=== PATIENT | male | born 1970 | race Caucasian/White ===

== ENCOUNTER 2016-03-20 15:12 | Observation (INO) | payer OTHER ==
[2016-03-20] MEDS ORDERED: ONDANSETRON 4 MG/2 ML VIAL IVP STA (16:56)
[2016-03-20] MEDS ORDERED: ACETAMINOPHEN IV (For NPO) 1,000 MG in SALINE 100 100ML.BAG IVPB STA (16:56)
[2016-03-20] MEDS ORDERED: SODIUM CHLORIDE 0.9% 1,000 ML IV STA ×2 (16:56)
--- NOTE | 2016-03-20 17:03 | ED ---
General Adult HPI - General Source: patient, RN notes reviewed Mode of arrival: ambulatory Limitations: no limitations <Dax Mirza - Last Filed: 03/20/16 20:33> <Alexy Seymour - Last Filed: 03/20/16 21:01> - General Chief complaint: Abdominal Pain Stated complaint: Cold symptoms Time Seen by Provider: 03/20/16 16:19 - History of Present Illness Initial comments: Patient is a 45-year-old male who presents emergency room today with a chief complaint of symptoms of nausea. Patient does admit that he has had some pain that seems to radiate up into the chest and through to his back. He describes it as a nausea type healing. Unable to describe the feeling of pain. Patient states the symptoms started at 5 AM this morning. Patient denies any other complaints or symptoms time. Patient states unaware that he had a fever at home. Patient denies any recent fever, chills, shortness of breath, numbness or tingling, dysuria or hematuria, constipation or diarrhea, headaches or visual changes, or any other complaints. (Dax Mirza) - Related Data Home Medications Medication Instructions Recorded Confirmed Atenolol [Tenormin] 50 mg PO BID 07/21/15 03/20/16 Omeprazole [PriLOSEC] 20 mg PO BID 07/21/15 03/20/16 Albuterol Inhaler [Ventolin Hfa 2 puff INHALATION RT-Q4H PRN 03/20/16 03/20/16 Inhaler] Baclofen [Lioresal] 10 mg PO BID PRN 03/20/16 03/20/16 HYDROcodone/APAP 5-325MG [[place] 1 tab PO BID 03/20/16 03/20/16 5-325] Allergies Allergy/AdvReac Type Severity Reaction Status Date / Time No Known Allergies Allergy Verified 03/20/16 16:52 Review of Systems ROS Other: All systems not noted in ROS Statement are negative. <Dax Mirza - Last Filed: 03/20/16 20:33> ROS Other: All systems not noted in ROS Statement are negative. <Alexy Seymour - Last Filed: 03/20/16 21:01> ROS Statement: Those systems with pertinent positive or pertinent negative responses have been documented in the HPI. Past Medical History Past Medical History: Cancer, COPD, GI Bleed, Hypertension Additional Past Medical History / Comment(s): RENAL CELL CA, DUODENAL ULCER, HIATAL HERNIA, BORDERLINE PERSONALITY DISORDER, OCD, chronic back pain History of Any Multi-Drug Resistant Organisms: None Reported Past Surgical History: Hernia Repair Additional Past Surgical History / Comment(s): duodenal ulcer surgery, left kidney removal Past Anesthesia/Blood Transfusion Reactions: No Reported Reaction Past Psychological History: Anxiety Smoking Status: Current every day smoker Past Alcohol Use History: None Reported Past Drug Use History: Marijuana <Dax Mirza - Last Filed: 03/20/16 20:33> General Exam Limitations: no limitations <Dax Mirza - Last Filed: 03/20/16 20:33> <Alexy Seymour - Last Filed: 03/20/16 21:01> - General Exam Comments Initial Comments: General: The patient is awake and alert, in no distress, and does not appear acutely ill. Eye: Pupils are equal, round and reactive to light, extra-ocular movements are intact. No nystagmus. There is normal conjunctiva bilaterally. No signs of icterus. Ears, nose, mouth and throat: There are moist mucous membranes and no oral lesions. Neck: The neck is supple, there is no tenderness or JVD. Cardiovascular: There is a regular rate and rhythm. No murmur, rub or gallop is appreciated. Respiratory: Lungs are clear to auscultation, respirations are non-labored, breath sounds are equal. No wheezes, stridor, rales, or rhonchi. Gastrointestinal: Patient has normal appearance and. No pulsatile mass. Abdomen soft on palpation. Bowel sounds normal. Patient has mild tenderness epigastric. No rebound tenderness. No guarding. Tenderness. Musculoskeletal: Normal ROM, no tenderness. Strength 5/5. Sensation intact. Pulses equal bilaterally 2+. Neurological: A&O x 3. CN II-XII intact, There are no obvious motor or sensory deficits. Coordination appears grossly intact. Speech is normal. Skin: Skin is warm and dry and no rashes or lesions are noted. Psychiatric: Cooperative, appropriate mood & affect, normal judgment. Normal appearance (Dax Mirza) Medical Decision Making - Lab Data Result diagrams: 03/20/16 17:12 03/20/16 17:12 <Dax Mirza - Last Filed: 03/20/16 20:33> - Lab Data Result diagrams: 03/20/16 17:12 03/20/16 17:12 <Alexy Seymour - Last Filed: 03/20/16 21:01> - Medical Decision Making Patient examined here the emergency room still expresses discomfort in the epigastric. Patient's ultrasound reviewed and does show fluid around the gallbladder. Does have an elevated white count of 13.8. Does have a low-grade fever 100.5F here in emergency room. Case discussed and seen by the physician Dr. Seymour. Patient will be admitted overnight to hospitalist with consult from surgery. (Dax Mirza) I examined the patient and he has discomfort to the right upper quadrant. Ultrasound shows hydrops of the gallbladder. Elevated white count. On again off again pain for several months. The patient has vomiting and diaphoresis earlier in the day. Cardiac enzymes within normal limits EKG normal. I discussed the case with on-call hospitalist Dr. Maxwell patient be admitted to his service with consultation from [facility]. Dr. Seymour (Alexy Seymour) - Lab Data Lab Results 03/20/16 03/20/16 03/20/16 Range/Units 17:12 17:12 17:12 WBC 13.8 H (3.8-10.6) k/uL RBC 4.95 (4.30-5.90) m/uL Hgb 14.2 (13.0-17.5) gm/dL Hct 44.1 (39.0-53.0) % MCV 89.0 (80.0-100.0) fL MCH 28.7 (25.0-35.0) pg MCHC 32.2 (31.0-37.0) g/dL RDW 13.6 (11.5-15.5) % Plt Count 278 (150-450) k/uL Neutrophils % 92 % Lymphocytes % 3 % Monocytes % 3 % Eosinophils % 0 % Basophils % 0 % Neutrophils # 12.7 H (1.3-7.7) k/uL Lymphocytes # 0.4 L (1.0-4.8) k/uL Monocytes # 0.5 (0-1.0) k/uL Eosinophils # 0.1 (0-0.7) k/uL Basophils # 0.0 (0-0.2) k/uL PT (9.0-12.0) sec INR (<1.1) APTT (22.0-30.0) sec Sodium 137 (137-145) mmol/L Potassium 4.4 (3.5-5.1) mmol/L Chloride 103 (98-107) mmol/L Carbon Dioxide 22 (22-30) mmol/L Anion Gap 12 mmol/L BUN 21 H (9-20) mg/dL Creatinine 1.10 (0.66-1.25) mg/dL Est GFR (MDRD) Af Amer >60 (>60 ml/min/1.73 sqM) Est GFR (MDRD) Non-Af >60 (>60 ml/min/1.73 sqM) Glucose 101 H (74-99) mg/dL Calcium 8.9 (8.4-10.2) mg/dL Total Bilirubin 0.7 (0.2-1.3) mg/dL AST 19 (17-59) U/L ALT 32 (21-72) U/L Alkaline Phosphatase 54 (38-126) U/L Total Creatine Kinase 82 (55-170) U/L CK-MB (CK-2) 0.3 (0.0-2.4) ng/mL CK-MB (CK-2) Rel Index 0.4 Troponin I 0.024 (0.000-0.034) ng/mL Total Protein 6.5 (6.3-8.2) g/dL Albumin 3.9 (3.5-5.0) g/dL Amylase 61 (30-110) U/L Lipase 330 H (23-300) U/L Urine Color Urine Appearance (Clear) Urine pH (5.0-8.0) Ur Specific [place] (1.001-1.035) Urine Protein (Negative) Urine Glucose (UA) (Negative) Urine Ketones (Negative) Urine Blood (Negative) Urine Nitrate (Negative) Urine Bilirubin (Negative) Urine Urobilinogen (<2.0) mg/dL Ur Leukocyte Esterase (Negative) Urine RBC (0-5) /hpf Urine WBC (0-5) /hpf Ur Squamous Epith Cells (0-4) /hpf Urine Mucus (None) /hpf 03/20/16 03/20/16 Range/Units 17:12 17:28 WBC (3.8-10.6) k/uL RBC (4.30-5.90) m/uL Hgb (13.0-17.5) gm/dL Hct (39.0-53.0) % MCV (80.0-100.0) fL MCH (25.0-35.0) pg MCHC (31.0-37.0) g/dL RDW (11.5-15.5) % Plt Count (150-450) k/uL Neutrophils % % Lymphocytes % % Monocytes % % Eosinophils % % Basophils % % Neutrophils # (1.3-7.7) k/uL Lymphocytes # (1.0-4.8) k/uL Monocytes # (0-1.0) k/uL Eosinophils # (0-0.7) k/uL Basophils # (0-0.2) k/uL PT 10.6 (9.0-12.0) sec INR 1.0 (<1.1) APTT 25.6 (22.0-30.0) sec Sodium (137-145) mmol/L Potassium (3.5-5.1) mmol/L Chloride (98-107) mmol/L Carbon Dioxide (22-30) mmol/L Anion Gap mmol/L BUN (9-20) mg/dL Creatinine (0.66-1.25) mg/dL Est GFR (MDRD) Af Amer (>60 ml/min/1.73 sqM) Est GFR (MDRD) Non-Af (>60 ml/min/1.73 sqM) Glucose (74-99) mg/dL Calcium (8.4-10.2) mg/dL Total Bilirubin (0.2-1.3) mg/dL AST (17-59) U/L ALT (21-72) U/L Alkaline Phosphatase (38-126) U/L Total Creatine Kinase (55-170) U/L CK-MB (CK-2) (0.0-2.4) ng/mL CK-MB (CK-2) Rel Index Troponin I (0.000-0.034) ng/mL Total Protein (6.3-8.2) g/dL Albumin (3.5-5.0) g/dL Amylase (30-110) U/L Lipase (23-300) U/L Urine Color Yellow Urine Appearance Clear (Clear) Urine pH 5.5 (5.0-8.0) Ur Specific [place] 1.025 (1.001-1.035) Urine Protein 2+ H (Negative) Urine Glucose (UA) Negative (Negative) Urine Ketones Negative (Negative) Urine Blood Small H (Negative) Urine Nitrate Negative (Negative) Urine Bilirubin Negative (Negative) Urine Urobilinogen <2.0 (<2.0) mg/dL Ur Leukocyte Esterase Negative (Negative) Urine RBC 4 (0-5) /hpf Urine WBC 2 (0-5) /hpf Ur Squamous Epith Cells <1 (0-4) /hpf Urine Mucus Rare H (None) /hpf Disposition Time of Disposition: 20:35 <Dax Mirza - Last Filed: 03/20/16 20:33> <Alexy Seymour - Last Filed: 03/20/16 21:01> Clinical Impression: Abdominal pain, Hydrops of gallbladder Disposition: ADMITTED IP TO THIS HOSP Condition: Stable Instructions: Abdominal Pain (ED) Referrals: Dorothea Choi MD [Primary Care Provider] - 1-2 days
[2016-03-20 17:27] LABS: Basophils % (A) 0 %; CH 29.3; CHCM 33.1; Eosinophils # (A) 0.1 k/uL (0-0.7); Eosinophils % (A) 0 %; HCT 44.1 % (39.0-53.0); HGB 14.2 gm/dL (13.0-17.5); Luc % (Auto) 1; Lymphocytes # (A) 0.4 k/uL (1.0-4.8); Lymphocytes % (A) 3 %; MCH 28.7 pg (25.0-35.0); MCHC 32.2 g/dL (31.0-37.0); Mean Platelet Volume 7.2; Monocytes # (A) 0.5 k/uL (0-1.0); Monocytes % (A) 3 %; Neutrophils # (A) 12.7 k/uL (1.3-7.7); Neutrophils % (A) 92 %; RBC 4.95 m/uL (4.30-5.90); RDW 13.6 % (11.5-15.5); WBC 13.8 k/uL (3.8-10.6); WBC (Perox) 14.02
[2016-03-20 17:34] LABS: Partial Thromboplastin Time 25.6 sec (22.0-30.0); Prothrombin Time 10.6 sec (9.0-12.0)
[2016-03-20 17:36] LABS: ALT 32 U/L (21-72); AST 19 U/L (17-59); Alkaline Phosphatase 54 U/L (38-126); Amylase 61 U/L (30-110); Anion Gap 12 mmol/L; Blood Urea Nitrogen 21 mg/dL (9-20); Calcium 8.9 mg/dL (8.4-10.2); Carbon Dioxide 22 mmol/L (22-30); Chloride 103 mmol/L (98-107); Glucose 101 mg/dL (74-99); Non-African American GFR(MDRD) >60 (>60 ml/min/1.73 sqM); Potassium 4.4 mmol/L (3.5-5.1); Sodium 137 mmol/L (137-145); Total Bilirubin 0.7 mg/dL (0.2-1.3); Total Protein 6.5 g/dL (6.3-8.2)
[2016-03-20 17:45] LABS: Appearance,Urine Clear (Clear); Bilirubin,Urine Negative (Negative); Glucose,Urine (UA) Negative (Negative); Ketones,Urine Negative (Negative); Leukocyte Esterase,Urine Negative (Negative); Mucus,Urine Rare /hpf; Nitrite,Urine Negative (Negative); PH, Urine 5.5 (5.0-8.0); Particle Count 2154; Protein,Urine 2+ (Negative); RBC,Urine 4 /hpf (0-5); Specific Gravity,Urine 1.025 (1.001-1.035); Squamous Epithelial Cell,Urine <1 /hpf (0-4); UA Billing (MACRO vs. MICRO) MICRO; Urobilinogen,Urine <2.0 mg/dL (<2.0); WBC,Urine 2 /hpf (0-5)
[2016-03-20 17:52] LABS: Creatine Kinase MB 0.3 ng/mL (0.0-2.4); Troponin I 0.024 ng/mL (0.000-0.034)
--- NOTE | 2016-03-20 18:12 | XR ---
Abdomen HISTORY: Pain Frontal view of the abdomen submitted on 2 images and correlated to prior exam 13 September 2014 There is a spinal curvature. Surgical clips are present in the upper abdomen. Lung bases are clear. N o pneumoperitoneum or bowel obstruction. IMPRESSION: No acute abnormality
--- NOTE | 2016-03-20 18:13 | XR ---
EXAMINATION TYPE: XR chest 2V DATE OF EXAM: 03/20/2016 5:45 PM COMPARISON: Prior chest x-ray third of September 2015 HISTORY: Chest pain TECHNIQUE: Frontal and lateral views of the chest are obtained. FINDINGS: There is no focal air space opacity, pleural effusion, or pneumothorax seen. The cardiac silhouette size is within normal limits. The osseous structures are intact. IMPRESSION: No acute cardiopulmonary process.
--- NOTE | 2016-03-20 20:00 | US ---
EXAMINATION TYPE: US abdomen limited DATE OF EXAM: 03/20/2016 7:29 PM COMPARISON: Previous abdomen ultrasound and CT abdomen pelvis second of July 2015 CLINICAL HISTORY: RUQ pain radiating into back. History of RCC, left kidney surgically absent. Diffic ult/limited study due to large body habitus and overlying bowel gas EXAM MEASUREMENTS: Liver Length: 16.0 cm Gallbladder Wall: 0.2 cm CBD: 0.4 cm Right Kidney: 12.0 x 5.5 x 5.2 cm Pancreas: Obscured by bowel gas Liver: Limited visualization due to bowel gas, visualized portions show no mass Gallbladder: Gallbladder may be somewhat hydropic Evidence for sonographic Styles's sign: No CBD: wnl as visualized, distal portion obscured by bowel gas Right Kidney: No hydronephrosis or masses seen There is no ascites. IMPRESSION: Exam is limited. Possible hydropic gallbladder, consider HIDA scan, surgical consult
[2016-03-20] MEDS ORDERED: ACETAMINOPHEN TAB 325 MG TAB PO PRN (20:35)
[2016-03-20] MEDS ORDERED: ONDANSETRON 4 MG/2 ML VIAL IVP PRN (20:35)
[2016-03-20] MEDS ORDERED: NALOXONE 0.4 MG/ML 1 ML VIAL IV PRN (20:35)
[2016-03-20] MEDS ORDERED: SODIUM CHLORIDE 0.9% 1,000 ML IV ONE (20:35)
[2016-03-20] MEDS ORDERED: ALBUTEROL NEBULIZED 2.5 MG/3 ML INHALATION PRN (23:04)
[2016-03-20] MEDS ORDERED: ZOLPIDEM 5 MG TAB PO PRN (23:04)
[2016-03-21] MEDS: PANTOPRAZOLE 40 MG TABLET PO SCH ×2 (00:01→09:09)
[2016-03-21] MEDS: HEPARIN SODIUM,PORCINE 5,000 UNIT/ML 1 ML VIAL SQ SCH ×3 (00:02→17:06)
[2016-03-21] MEDS: HYDROmorphone 1 MG/ML 1 ML SYRINGE IV PRN ×4 (00:03→14:31)
[2016-03-21 07:46] VITALS: RESP 18
[2016-03-21 08:52] LABS: Basophils % (A) 0 %; CH 28.7; CHCM 31.8; Eosinophils % (A) 0 %; HCT 39.6 % (39.0-53.0); HDW 2.32; HGB 12.7 gm/dL (13.0-17.5); Luc # (Auto) 0.21; Luc % (Auto) 4; Lymphocytes % (A) 16 %; MCHC 32.1 g/dL (31.0-37.0); MCV 90.5 fL (80.0-100.0); Mean Platelet Volume 6.8; Monocytes # (A) 0.5 k/uL (0-1.0); Monocytes % (A) 8 %; Neutrophils # (A) 4.3 k/uL (1.3-7.7); Neutrophils % (A) 72 %; RBC 4.38 m/uL (4.30-5.90); RDW 13.6 % (11.5-15.5); WBC (Perox) 6.37
[2016-03-21] MEDS ORDERED: ATENOLOL 50 MG TAB PO SCH ×2 (09:00→23:05)
[2016-03-21 09:08] LABS: ALT 30 U/L (21-72); AST 17 U/L (17-59); Alkaline Phosphatase 52 U/L (38-126); Amylase <30 U/L (30-110); Anion Gap 9 mmol/L; Blood Urea Nitrogen 14 mg/dL (9-20); Calcium 8.5 mg/dL (8.4-10.2); Carbon Dioxide 27 mmol/L (22-30); Chloride 103 mmol/L (98-107); Glucose 91 mg/dL (74-99); Non-African American GFR(MDRD) >60 (>60 ml/min/1.73 sqM); Potassium 4.4 mmol/L (3.5-5.1); Sodium 139 mmol/L (137-145); Total Bilirubin 0.7 mg/dL (0.2-1.3)
--- NOTE | 2016-03-21 13:43 | P.CONS ---
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 Patient stated the chest pain left anterior wall radiated up into the back to the neck. Stated that he had a sensation of nausea but no emesis. Patient stated that he went to bed woke up at 5 in the morning with the above symptoms. Patient states that he did not take his temperature but did not feeling any fever or chills. Patient stated he did not note a change in bowel habits. Patient states that over the last several months "after I think about it I been having intermittent episodes of chest discomfort left anterior chest wall goes up into the neck and the back. Patient states a couple weeks ago he was eating a peanut butter sandwich developed chest discomfort patient states he gets his healthcare out of [facility]. And he sees a neurologist Dr. matias for chronic lower back pain which she is prescribed [place]. States that he did see the pain doctor March 09 2016 Patient states he has not been experiencing any significant abdominal pain when questioning in the emergency room and ultrasound of the abdomen was done it showed no ascites. It did show no evidence of hydronephrosis or mass on the left kidney the gallbladder was noted to be somewhat hydropic. The lipase on admission was 330 repeat lipase this morning is 40. Amylase is less than 30 on admission 61. Electrolytes are reviewed and within normal limits. Mild elevated troponin of 0.024. The total bilirubin is not elevated 0.7 the AST and ALT are not elevated the AST is 17 ALT 30 alk phos 52 on admission the white count was 13.8 it's now down to 6. HIDA scan has been ordered is currently pending. Currently the patient is denying any right upper quadrant pain Patient is a history of being diagnosed in 2003 of left renal cancer resulting in a left nephrectomy. He states that admission he did have an EGD which did sit show a duodenal ulcer in which the patient stated he developed bleeding afterwards and ended up having surgery in the duodenal ulcer. He states the EGD was done by Dr. Alvarez but is not certain who the surgical service was according to the patient he has not been experiencing any epigastric discomfort such as burning or heartburn. Patient also states he has not noted any change in bowel habits. He Patient does give a surgical history of repair of the duodenal ulcer and a left nephrectomy and hernia repair. Patient every day smoker greater than a 20 year history Review of Systems Essentially unremarkable except as mentioned in the present illness Past Medical History Past Medical History: Cancer, COPD, GI Bleed, Hypertension Additional Past Medical History / Comment(s): RENAL CELL CA, DUODENAL ULCER, HIATAL HERNIA, BORDERLINE PERSONALITY DISORDER, OCD, chronic back pain, chronic bronchitis History of Any Multi-Drug Resistant Organisms: None Reported Past Surgical History: Hernia Repair Additional Past Surgical History / Comment(s): duodenal ulcer surgery, left kidney removal Past Anesthesia/Blood Transfusion Reactions: No Reported Reaction Past Psychological History: Anxiety Additional Psychological History / Comment(s): OCD, borderline personality disorder Smoking Status: Current every day smoker Past Alcohol Use History: None Reported Past Drug Use History: Marijuana Medications and Allergies Home Medications Medication Instructions Recorded Confirmed Type Atenolol [Tenormin] 50 mg PO BID 07/21/15 03/20/16 History Omeprazole [PriLOSEC] 20 mg PO BID 07/21/15 03/20/16 History Albuterol Inhaler [Ventolin Hfa 2 puff INHALATION RT-Q4H PRN 03/20/16 03/20/16 History Inhaler] Baclofen [Lioresal] 10 mg PO BID PRN 03/20/16 03/20/16 History HYDROcodone/APAP 5-325MG [[place] 1 tab PO BID 03/20/16 03/20/16 History 5-325] Allergies Allergy/AdvReac Type Severity Reaction Status Date / Time No Known Allergies Allergy Verified 03/20/16 16:52 Physical Exam Vitals: Vital Signs Temp Pulse Resp BP BP Pulse Ox 03/21/16 07:00 98.2 F 75 18 97/58 97 03/20/16 23:00 98.9 F 79 20 128/65 94 L 03/20/16 21:49 98.2 F 75 120/65 96 Intake and Output 03/20/16 03/21/16 03/21/16 22:59 06:59 14:59 Intake Total 200 0 Balance 200 0 Intake: Oral 200 0 Other: # Voids 2 Weight 126.87 kg GENERAL APPEARANCE: 45-year-old male patient is alert, oriented, in no acute distress. VITAL SIGNS: Reviewed HEENT: Head is normocephalic and atraumatic. Pupils are equal and reactive. The nares are patent. Oropharynx is clear without lesions. NECK: Supple without lymphadenopathy. Traches midline. HEART: S1, S2. Regular rate and rhythm. No murmur noted LUNGS: No crackles or wheezes are heard. Essentially clear on room air ABDOMEN: Soft, nontender, nondistended with good bowel sounds. No peritoneal signs. No palpable organomegaly or masses. Not able to elicit any facial grimacing with palpitation to the abdominal wall. EXTREMITIES: Normal skin color and turgor. No cyanosis, rash, ulceration, clubbing or edema. Radial pedal pulses are 2/4 bilaterally. NEUROLOGICAL: No focal deficits. Strength and sensation are grossly intact. Results CBC & Chem 7: 03/21/16 08:12 03/21/16 08:12 Labs: Abnormal Lab Results - Last 24 Hours (Table) 03/21/16 03/21/16 Range/Units 08:12 08:12 Hgb 12.7 L (13.0-17.5) gm/dL Total Protein 6.0 L (6.3-8.2) g/dL Amylase <30 L (30-110) U/L Assessment and Plan Plan: Impression Present on admission chief complaint of nausea with chest pain left side radiating up into the back up into the neck Present on admission leukocytosis suspect reactive Chronic nicotine dependency greater than a 20 year history 1 pack a day Chronic pain narcotic dependency History of a duodenal ulcer with a duodenal repair done in 2003 History of left renal cancer 2003 Anxiety disorder nonspecified Mildly elevated troponin Obesity BMI 40 Plan Check troponin 3 Consult cardiology Follow up on the HIDA scan currently pending Pain control DVT and GI prophylaxis Repeat labs in the morning Further recommendations from surgical service after reviewing the HIDA scan Acute for allowing us to participate in the surgical management of your patient will follow clinical course The above dictated assessment and findings were discussed with . Impression and the plan of care have been dictated as directed. Jessica Tirado nurse practitioner acting as a scribe for dr mao
--- NOTE | 2016-03-21 13:54 | NM ---
EXAMINATION TYPE: NM hepatobiliary w CCK DATE OF EXAM: 03/21/2016 1:45 PM COMPARISON: NONE HISTORY: Abdominal pain TECHNIQUE: After the intravenous administration of 5.28 mCi Tc 99m Mebrofenin hepatobiliary scintigra phy is performed. Immediate images post injection. FINDINGS: There is satisfactory initial accumulation of tracer by the liver. The gallbladder is visualized wit hin 10 minutes. The small bowel activity is noted within 50 to minutes. At one hour CCK was adminis tered, patient was injected with 2.55 mcg of Kinevac, and gallbladder ejection fraction is calculated at 9 %, in the normal range. Therefore there is no scintigraphic evidence of cystic or common bile duct obstruction to suggest acute cholecystitis or gallbladder dyskinesia. IMPRESSION: Biliary dyskinesia.
[2016-03-21 16:24] VITALS: BP 128/76; PULSE 71; TEMP 96.7
--- NOTE | 2016-03-21 17:36 | HP ---
The patient is a 45-year-old gentleman who came in with epigastric burning sensation radiating to the retrosternal area and through the esophagus. Patient has typical gastroesophageal reflux symptoms along with nausea, did not vomit and patient had peptic ulcer disease in the past. Patient is already on Prilosec at home twice a day. Patient denied any fever or chills, lightheadedness. Patient underwent ultrasound of the abdomen since his pain radiates to the back, which is a burning sensation about 5/10 in severity, not associated with diaphoresis, not associated with food, nonexertional, nonpleuritic in nature. Patient underwent ultrasound of the abdomen and HIDA scan, both of which are essentially not consistent with cholecystitis except for mild biliary dyskinesia. Patient in the past has extensive history of peptic ulcer disease. Patient had patient had similar symptoms in the past for which patient underwent a stress test in 2013, which was essentially within normal limits and patient's EKG was within normal limits and patient's troponins are not elevated. REVIEW OF SYSTEMS: CONSTITUTIONAL: No fever, no malaise, no fatigue. HEENT: No recent visual problems or hearing problems. Denied any sore throat. CARDIOVASCULAR: No chest pain, orthopnea, PND, no palpitations, no syncope. PULMONARY: No shortness of breath, no cough, no hemoptysis. GASTROINTESTINAL: As described in HPI. NEUROLOGICAL: No headaches, no weakness, no numbness. HEMATOLOGICAL: Denies any bleeding or petechiae. GENITOURINARY: Denies any burning micturition, frequency, or urgency. MUSCULOSKELETAL/RHEUMATOLOGICAL: Denies any joint pain, swelling, or any muscle pain. ENDOCRINE: Denies any polyuria or polydipsia. The rest of the 14 point review of systems is negative. PAST MEDICAL HISTORY: Significant for renal cell cancer, COPD, GI bleed, peptic ulcer disease, hypertension, hernia repair in the past, anxiety disorder, obsessive-compulsive disorder. SOCIAL HISTORY: The patient does smoke, nicotine cessation counseling was provided, about a pack per day. Denied any alcohol abuse. Occasional use of marijuana. Home medications include: 1. Atenolol. 2. Omeprazole, 3. Albuterol. 4. Baclofen. 5. Hydrocodone-acetaminophen. ALLERGIES: No known drug allergies. PHYSICAL EXAMINATION: VITAL SIGNS: Temperature 98.2, pulse of 75, respiratory rate of 18, blood pressure is 97/58, saturating at 97% on room air. GENERAL: The patient is alert and oriented x3, not in any acute distress. Well developed, well nourished. HEENT: Pupils are round and equally reacting to light. EOMI. No scleral icterus. No conjunctival pallor. Normocephalic, atraumatic. No pharyngeal erythema. No thyromegaly. CARDIOVASCULAR: S1 and S2 present. No murmurs, rubs, or gallops. PULMONARY: Chest is clear to auscultation, no wheezing or crackles. ABDOMEN: Soft, nontender, nondistended, normoactive bowel sounds. No palpable organomegaly. Patient's epigastric abdominal pain completely resolved after Protonix. MUSCULOSKELETAL: No joint swelling or deformity. EXTREMITIES: No cyanosis, clubbing, or pedal edema. NEUROLOGICAL: Gross neurological examination did not reveal any focal deficits. SKIN: No rashes. ASSESSMENT AND PLAN: 1. Epigastric abdominal burning sensation secondary to gastroesophageal reflux disease and peptic ulcer disease. Patient will be switched to Protonix. I do not believe patient has any myocardial infarction and patient's symptoms are not consistent with cardiac chest pain. Patient's symptoms improved with Protonix and patient does not have any cholecystitis, either. Patient will be discharged today. I will change his Prilosec to Protonix 20 b.i.d. along with Maalox. 2. Hypertension. Actually, blood pressure is 90 systolic. Because of that reason, I will discontinue atenolol, give him metoprolol to prevent any reflex tachycardia. 3. Left renal cancer in remission. 4. Obesity. 5. Leukocytosis which is reactive, which resolved at this point of time. 6. Patient will be discharged today. 7. Patient will follow with Dr. Dorothea Choi in 3 to 7 days; Dr. Tiffany Pulido in 1 week. 8. Activity as tolerated. 9. Cardiac diet and extensive counseling regarding diet regarding gastroesophageal reflux disease, peptic ulcer disease. Avoid caffeine, avoid chocolate, avoid alcohol and nicotine and elevate the head around 30 degrees.
--- NOTE | 2016-05-11 12:00 | PCN ---
ADDENDUM TO PROCEDURE NOTE: General anesthesia was utilized instead of IV conscious sedation.
== END 2016-03-21 17:10 | disposition home or self-care (01) ==
LOC: EC 15:12 → 4MS4W 20:35
PROVIDERS: ADMIT Hospitalist; ATTEND Hospitalist
DX: K21.9 Gastro-esophageal reflux disease without esophagitis (principal); K27.9 Peptic ulcer, site unspecified, unspecified as acute or chronic, without hemorrhage or perforation; I10 Essential (primary) hypertension; C64.2 Malignant neoplasm of left kidney, except renal pelvis; Z85.528 Personal history of other malignant neoplasm of kidney; D72.829 Elevated white blood cell count, unspecified; E66.9 Obesity, unspecified; F12.90 Cannabis use, unspecified, uncomplicated; F17.210 Nicotine dependence, cigarettes, uncomplicated; G89.29 Other chronic pain; M54.5 Low back pain; J44.9 Chronic obstructive pulmonary disease, unspecified; K82.1 Hydrops of gallbladder; K82.8 Other specified diseases of gallbladder; Z68.41 Body mass index [BMI] 40.0-44.9, adult; Z79.899 Other long term (current) drug therapy; R07.89 Other chest pain
CPT/HCPCS: 36415; 93005; 80053 ×2; 82150 ×2; 82550; 82553; 83690 ×2; 84484 ×2; 85025 ×2; 85610; 85730; 81001; 71020; 74000; 76705; 78227; 99285; 96374; 96375; 96361; G0378 ×2; A9537; J1644; J2405; J2805; J1170; J0131; 96372; 96376

== ENCOUNTER 2016-04-13 23:09 | Emergency (ER) | payer OTHER ==
[2016-04-13] MEDS ORDERED: SODIUM CHLORIDE 0.9% 500 ML IV STA (23:52)
[2016-04-13] MEDS ORDERED: ONDANSETRON 4 MG/2 ML VIAL IVP STA (23:53)
[2016-04-13] MEDS ORDERED: HYDROmorphone 1 MG/ML 1 ML SYRINGE IVP STA (23:53)
--- NOTE | 2016-04-13 23:56 | ED ---
Abdominal Pain HPI - General Chief Complaint: Abdominal Pain Stated Complaint: Abd Pain Time Seen by Provider: 04/13/16 23:21 Source: patient, RN notes reviewed Mode of arrival: wheelchair Limitations: no limitations - History of Present Illness Initial Comments: Patient is a 45-year-old male presents to the emergency room for evaluation of epigastric pain. Patient states he has a history of gastric reflux. Patient states she was in the hospital last month for the same issue. Patient states he 's been on Protonix which has been helping his symptoms. Patient states shortly after eating today began having increasing epigastric pain that radiates into his chest. Patient states she is not having 9 out of 10 constant pain in his upper epigastric area and chest. Patient denies shortness of breath. Patient's denies headache or dizziness. Patient states he took a [place] with no relief of symptoms. Patient states he's been extremely nauseous but denies any vomiting. Patient denies any fevers or chills. Patient denies cardiac history. - Related Data Home Medications Medication Instructions Recorded Confirmed Albuterol Inhaler [Ventolin Hfa 2 puff INHALATION RT-Q4H PRN 03/20/16 04/13/16 Inhaler] Baclofen [Lioresal] 10 mg PO BID PRN 03/20/16 04/13/16 HYDROcodone/APAP 5-325MG [[place] 1 tab PO BID 03/20/16 04/13/16 5-325] Previous Rx's Medication Instructions Recorded Mag Hydrox/Al Hydrox/Simeth 30 ml PO TID #500 ml 03/21/16 [Maalox] Metoprolol Tartrate 25 mg PO BID #60 tab 03/21/16 Pantoprazole Sodium [Protonix] 20 mg PO BID #60 tablet. 03/21/16 Pantoprazole Sodium [Protonix] 20 mg PO BID PRN #20 tablet. 04/14/16 Allergies Allergy/AdvReac Type Severity Reaction Status Date / Time No Known Allergies Allergy Verified 04/13/16 23:17 Review of Systems ROS Statement: Those systems with pertinent positive or pertinent negative responses have been documented in the HPI. ROS Other: All systems not noted in ROS Statement are negative. Past Medical History Past Medical History: Cancer, COPD, GI Bleed, Hypertension Additional Past Medical History / Comment(s): RENAL CELL CA, DUODENAL ULCER, HIATAL HERNIA, BORDERLINE PERSONALITY DISORDER, OCD, chronic back pain, chronic bronchitis History of Any Multi-Drug Resistant Organisms: None Reported Past Surgical History: Hernia Repair Additional Past Surgical History / Comment(s): duodenal ulcer surgery, left kidney removal Past Anesthesia/Blood Transfusion Reactions: No Reported Reaction Past Psychological History: Anxiety Additional Psychological History / Comment(s): OCD, borderline personality disorder Smoking Status: Current every day smoker Past Alcohol Use History: None Reported Past Drug Use History: Marijuana General Exam - General Exam Comments Initial Comments: Sitting in exam room in no acute distress. Limitations: no limitations General appearance: alert, in no apparent distress Head exam: Present: atraumatic, normocephalic, normal inspection Eye exam: Present: normal appearance ENT exam: Present: normal exam Neck exam: Present: normal inspection Respiratory exam: Present: normal lung sounds bilaterally. Absent: respiratory distress Cardiovascular Exam: Present: regular rate, normal rhythm, normal heart sounds GI/Abdominal exam: Present: soft, tenderness (Upper midepigastric), normal bowel sounds. Absent: distended, guarding, rebound, rigid Extremities exam: Present: normal inspection Back exam: Present: normal inspection Neurological exam: Present: alert, oriented X3, CN II-XII intact, normal gait Psychiatric exam: Present: normal affect, normal mood Skin exam: Present: warm, dry, intact, normal color. Absent: rash Course Vital Signs 04/13/16 04/14/16 04/14/16 23:12 01:01 04:14 Temperature 98.8 F 99.5 F 97.9 F Pulse Rate 81 65 78 Respiratory 16 18 16 Rate Blood Pressure 140/79 135/60 129/78 O2 Sat by Pulse 98 97 97 Oximetry Medical Decision Making - Medical Decision Making Patient is a 45-year-old male presents to the emergency room for evaluation of midepigastric pain. Patient states this pain feels similar to his normal gastric reflux. Patient states he is feeling better after medications given. Will send patient home and have him follow-up with his primary care provider. Patient states he understands everything that was discussed with him. Return parameters discussed. Case discussed with Dr. Barone. - Lab Data Result diagrams: 04/14/16 00:05 04/14/16 00:05 Lab Results 04/14/16 04/14/16 04/14/16 Range/Units 00:05 00:05 00:05 WBC 16.2 H (3.8-10.6) k/uL RBC 5.10 (4.30-5.90) m/uL Hgb 14.8 (13.0-17.5) gm/dL Hct 44.9 (39.0-53.0) % MCV 88.0 (80.0-100.0) fL MCH 29.0 (25.0-35.0) pg MCHC 33.0 (31.0-37.0) g/dL RDW 13.5 (11.5-15.5) % Plt Count 333 (150-450) k/uL Neutrophils % 84 % Lymphocytes % 8 % Monocytes % 4 % Eosinophils % 2 % Basophils % 1 % Neutrophils # 13.7 H (1.3-7.7) k/uL Lymphocytes # 1.4 (1.0-4.8) k/uL Monocytes # 0.7 (0-1.0) k/uL Eosinophils # 0.2 (0-0.7) k/uL Basophils # 0.1 (0-0.2) k/uL PT (9.0-12.0) sec INR (<1.1) APTT (22.0-30.0) sec Sodium 137 (137-145) mmol/L Potassium 5.0 (3.5-5.1) mmol/L Chloride 103 (98-107) mmol/L Carbon Dioxide 22 (22-30) mmol/L Anion Gap 12 mmol/L BUN 20 (9-20) mg/dL Creatinine 1.10 (0.66-1.25) mg/dL Est GFR (MDRD) Af Amer >60 (>60 ml/min/1.73 sqM) Est GFR (MDRD) Non-Af >60 (>60 ml/min/1.73 sqM) Glucose 113 H (74-99) mg/dL Calcium 9.3 (8.4-10.2) mg/dL Magnesium 1.7 (1.6-2.3) mg/dL Total Bilirubin 0.6 (0.2-1.3) mg/dL AST 26 (17-59) U/L ALT 25 (21-72) U/L Alkaline Phosphatase 57 (38-126) U/L Total Creatine Kinase 91 (55-170) U/L CK-MB (CK-2) <0.2 (0.0-2.4) ng/mL CK-MB (CK-2) Rel Index Troponin I 0.018 (0.000-0.034) ng/mL Total Protein 7.1 (6.3-8.2) g/dL Albumin 4.2 (3.5-5.0) g/dL Amylase 38 (30-110) U/L Lipase 67 (23-300) U/L 04/14/16 Range/Units 00:05 WBC (3.8-10.6) k/uL RBC (4.30-5.90) m/uL Hgb (13.0-17.5) gm/dL Hct (39.0-53.0) % MCV (80.0-100.0) fL MCH (25.0-35.0) pg MCHC (31.0-37.0) g/dL RDW (11.5-15.5) % Plt Count (150-450) k/uL Neutrophils % % Lymphocytes % % Monocytes % % Eosinophils % % Basophils % % Neutrophils # (1.3-7.7) k/uL Lymphocytes # (1.0-4.8) k/uL Monocytes # (0-1.0) k/uL Eosinophils # (0-0.7) k/uL Basophils # (0-0.2) k/uL PT 10.6 (9.0-12.0) sec INR 1.0 (<1.1) APTT 24.7 (22.0-30.0) sec Sodium (137-145) mmol/L Potassium (3.5-5.1) mmol/L Chloride (98-107) mmol/L Carbon Dioxide (22-30) mmol/L Anion Gap mmol/L BUN (9-20) mg/dL Creatinine (0.66-1.25) mg/dL Est GFR (MDRD) Af Amer (>60 ml/min/1.73 sqM) Est GFR (MDRD) Non-Af (>60 ml/min/1.73 sqM) Glucose (74-99) mg/dL Calcium (8.4-10.2) mg/dL Magnesium (1.6-2.3) mg/dL Total Bilirubin (0.2-1.3) mg/dL AST (17-59) U/L ALT (21-72) U/L Alkaline Phosphatase (38-126) U/L Total Creatine Kinase (55-170) U/L CK-MB (CK-2) (0.0-2.4) ng/mL CK-MB (CK-2) Rel Index Troponin I (0.000-0.034) ng/mL Total Protein (6.3-8.2) g/dL Albumin (3.5-5.0) g/dL Amylase (30-110) U/L Lipase (23-300) U/L - Radiology Data Radiology results: report reviewed, image reviewed Disposition Clinical Impression: Gastric reflux Narrative: Unable to document clinical impression. Clinical impression: Gastric reflux Disposition: HOME SELF-CARE Condition: Good Instructions: Diet for Stomach Ulcers and Gastritis (ED), Gastroesophageal Reflux Disease (ED) Additional Instructions: Continue with at home medications. Please follow-up with primary care provider or GI specialist. If any new symptom arises or symptoms worsen, return to ER as soon as possible. Prescriptions: Pantoprazole Sodium [Protonix] 20 mg PO BID PRN #20 tablet.dr CONTRERAS Reason: Pain Referrals: Dorothea Choi MD [Primary Care Provider] - 1-2 days Time of Disposition: 03:17
[2016-04-14 00:19] LABS: Basophils # (A) 0.1 k/uL (0-0.2); Basophils % (A) 1 %; CH 28.7; CHCM 32.9; Eosinophils # (A) 0.2 k/uL (0-0.7); Eosinophils % (A) 2 %; HCT 44.9 % (39.0-53.0); HDW 2.41; HGB 14.8 gm/dL (13.0-17.5); Luc # (Auto) 0.17; Luc % (Auto) 1; Lymphocytes # (A) 1.4 k/uL (1.0-4.8); Lymphocytes % (A) 8 %; Monocytes # (A) 0.7 k/uL (0-1.0); Monocytes % (A) 4 %; Neutrophils # (A) 13.7 k/uL (1.3-7.7); Neutrophils % (A) 84 %; RDW 13.5 % (11.5-15.5); WBC 16.2 k/uL (3.8-10.6); WBC (Perox) 15.32
[2016-04-14 00:27] LABS: Partial Thromboplastin Time 24.7 sec (22.0-30.0); Prothrombin Time 10.6 sec (9.0-12.0)
[2016-04-14 00:30] LABS: Amylase 38 U/L (30-110); Anion Gap 12 mmol/L; Calcium 9.3 mg/dL (8.4-10.2); Carbon Dioxide 22 mmol/L (22-30); Chloride 103 mmol/L (98-107); Glucose 113 mg/dL (74-99); Non-African American GFR(MDRD) >60 (>60 ml/min/1.73 sqM); Sodium 137 mmol/L (137-145); Total Bilirubin 0.6 mg/dL (0.2-1.3); Total Protein 7.1 g/dL (6.3-8.2)
[2016-04-14 00:36] LABS: ALT 25 U/L (21-72); AST 26 U/L (17-59); Alkaline Phosphatase 57 U/L (38-126); Blood Urea Nitrogen 20 mg/dL (9-20); Magnesium 1.7 mg/dL (1.6-2.3)
[2016-04-14 00:40] LABS: Creatine Kinase 91 U/L (55-170)
[2016-04-14 00:53] LABS: Creatine Kinase MB <0.2 ng/mL (0.0-2.4); Troponin I 0.018 ng/mL (0.000-0.034)
--- NOTE | 2016-04-14 01:11 | XR ---
EXAM: XR Chest, 2 Views. CLINICAL HISTORY: Reason: Chest Pain TECHNIQUE: Frontal and lateral views of the chest. COMPARISON: 03/20/16 FINDINGS: Lungs: No dense consolidation or effusion. Pleural space: Unremarkable. No pneumothorax. Heart: Cardiovascular silhouette is within normal limits. Mediastinum: Unremarkable. Bones/joints: Minimal degenerative changes in the spine. Other findings: No significant change. IMPRESSION: No acute pulmonary disease. No significant change.
[2016-04-14] MEDS ORDERED: ONDANSETRON 4 MG/2 ML VIAL IVP STA (02:30)
[2016-04-14] MEDS: MAG HYDROX/AL HYDROX/SIMETH 30 ML, HYOSCYAMINE ELIXIR 10 ML, CIMETIDINE HCL 300 MG, LID... PO STA ×8 (03:28→03:58)
[2016-04-14] MEDS ORDERED: FAMOTIDINE 20 MG/2 ML VIAL IV STA (03:41)
[2016-04-14] MEDS ORDERED: PANTOPRAZOLE 40 MG/10 ML VIAL IVP STA (03:53)
[2016-04-14 04:16] VITALS: BP 129/78; PULSE 78; RESP 16; TEMP 97.9
== END 2016-04-14 04:16 | disposition home or self-care (01) ==
LOC: EC 23:09
DX: K21.9 Gastro-esophageal reflux disease without esophagitis (principal); I10 Essential (primary) hypertension; F17.200 Nicotine dependence, unspecified, uncomplicated; Z79.899 Other long term (current) drug therapy
CPT/HCPCS: 36415; 93005; 80053; 82150; 82550; 82553; 83690; 83735; 84484; 85025; 85610; 85730; 71020; 99284; 96374; 96375 ×3; 96376; J2405; J1170; C9113

== ENCOUNTER → 2016-05-02 | Day surgery (SDC) | payer OTHER ==
[2016-04-30 15:21] VITALS: BMI 40.1
[~2016-05-02] MED LIST: LACTATED RINGERS 1,000 ML IV SCH; LIDOCAINE 1% 20 ML VIAL (10MG/ML) FOR IV START INTRADERMA PRN; LIDOCAINE 1% INJ 10MG/ML (20 ML MDV) ONE; PROPOFOL 10 MG/ML 20 ML VIAL IV ONE
[2016-05-02 09:57] VITALS: RESP 16; TEMP 97.1
--- NOTE | 2016-05-02 10:50 | P.PCN ---
Date of Procedure: 05/02/16 Procedure(s) Performed: BRIEF HISTORY: Patient is a 45-year-old, pleasant, white male, scheduled for an upper endoscopy as a part of evaluation of epigastric pain for the last few months. He is presently on Protonix 40 mg daily and still has persistent epigastric pain. PROCEDURE PERFORMED: Esophagogastroduodenoscopy with biopsy. PREOPERATIVE DIAGNOSIS: Persistent epigastric pain. IV sedation per anesthesia. PROCEDURE: After informed consent was obtained, the patient was brought into the endoscopy unit. IV conscious sedation was administered by Anesthesia under continuous monitoring. Initially the Olympus GIF-140 video endoscope was inserted into the mouth. Esophagus intubated without any difficulty. It was gradually advanced into the stomach and duodenum and carefully examined. The bulb and the second part of the duodenum appeared normal. The scope at this time was withdrawn to the stomach, adequately insufflated with air, and upon careful examination, mucosa of the antrum, had mild mottling of the mucosa consistent with gastritis and biopsies were done from this area. The body, cardia and the fundus appeared normal. The scope was then withdrawn into the esophagus. The GE junction was located at 42 cm from the incisors. The esophagus appeared normal. There were no erosions or ulcerations seen and the patient tolerated the procedure well. IMPRESSION: 1. Mild antral gastritis. 2. No evidence of esophagitis or peptic ulcer disease. RECOMMENDATIONS: The findings of this examination were discussed with the patient as well as his family. He was advised to follow with the biopsy results. He will continue with Protonix 40 mg daily and follow anti-reflex measures.
[2016-05-02 11:30] VITALS: BP 149/90; PULSE 79
--- NOTE | 2016-05-07 05:43 | CDI ---
Dear Dr. Pulido, The Procedure Note documents IV Sedation per Anesthesia in one spot and then under Procedure: IV Conscious sedation is also documented. The Anesthesia Record has GA/Unconscious sedation checked off under Technique. This is conflicting documentation that needs clarification. Please clarify whether the sedation provided Sandip Enrique was Conscious sedation or Unconscious Sedation. PLEASE DOCUMENT THIS CLARIFICATION AN ADDENDUM TO THE PROCEDURE NOTE. Thank you for our time, Nesha Arizmendi, [facility] Outpatient Java Technical Manager [email or web address]
--- NOTE | 2016-05-16 11:45 | CDI ---
Dear Dr. Pulido, The Procedure Note documents IV Sedation per Anesthesia in one spot and then under Procedure: IV Conscious sedation is also documented. The Anesthesia Record has GA/Unconscious sedation checked off under Technique. This is conflicting documentation that needs clarification. Please clarify whether the sedation provided Sandip Nunez was Conscious sedation or Unconscious Sedation. PLEASE DOCUMENT THIS CLARIFICATION AN ADDENDUM TO THE PROCEDURE NOTE. If you have any questions regarding this query, you can contact Robyn Osorio , Machine Group Leader at Saturday thru Saturday 8 am to 6pm Thank you for our time, Nesha Arizmendi, [facility] Outpatient Rim Fire Charger Operator Yuriy MTDD
--- NOTE | 2016-06-22 10:21 | CDI ---
Dear Dr. Pulido, The Procedure Note documents IV Sedation per Anesthesia in one spot and then under Procedure: IV Conscious sedation is also documented. The Anesthesia Record has GA/Unconscious sedation checked off under Technique. This is conflicting documentation that needs clarification. Please clarify whether the sedation provided Sandip Nunez was Conscious sedation or Unconscious Sedation. PLEASE DOCUMENT THIS CLARIFICATION AN ADDENDUM TO THE PROCEDURE NOTE. If you have any questions regarding this query, you can contact Robyn Kathleen , Process Developer at Saturday thru Saturday 8 am to 6pm Thank you for our time, Nesha Arizmendi, [facility] Outpatient Laboratory Sampler Yuriy MTDD
--- NOTE | 2016-06-27 11:46 | PCN ---
DATE OF SERVICE: 05/02/2016 ADDENDUM: General anesthesia was utilized instead of IV conscious sedation.
== END ==
LOC: ORWHC2ENDO 08:50
PROVIDERS: ATTEND Internal Medicine Gastroenterology
DX: K29.50 Unspecified chronic gastritis without bleeding (principal); K20.9 Esophagitis, unspecified; I10 Essential (primary) hypertension; J45.909 Unspecified asthma, uncomplicated; F17.200 Nicotine dependence, unspecified, uncomplicated; Z85.528 Personal history of other malignant neoplasm of kidney; E66.01 Morbid (severe) obesity due to excess calories; Z68.41 Body mass index [BMI] 40.0-44.9, adult; Z79.891 Long term (current) use of opiate analgesic; Z79.899 Other long term (current) drug therapy
CPT/HCPCS: 88305; 88342; 43239; J2001; J2704

== ENCOUNTER 2016-11-27 20:00 | Emergency (ER) | payer OTHER ==
[2016-11-27] MEDS ORDERED: SODIUM CHLORIDE 0.9% 1,000 ML IV STA ×2 (20:18)
[2016-11-27] MEDS ORDERED: HYDROmorphone 0.5 MG/0.5 ML SYRINGE IVP STA (20:18)
[2016-11-27] MEDS ORDERED: ONDANSETRON 4 MG/2 ML VIAL IVP STA (20:18)
--- NOTE | 2016-11-27 20:22 | ED ---
Abdominal Pain HPI - General Chief Complaint: Abdominal Pain Stated Complaint: Abd Pain Time Seen by Provider: 11/27/16 20:13 Source: patient, RN notes reviewed, old records reviewed Mode of arrival: ambulatory Limitations: no limitations - History of Present Illness Initial Comments: Pleasant 46-year-old male presents emergency Department chief complaint of right upper quadrant abdominal pain since 5:00 this evening. Patient reports that he has the pain partially when she lies after eating. Patient states that she thinks are some minimal his gallbladder. He states that he's had nausea but denies any episodes of vomiting. He reports that he takes [place] for chronic pain and last bowel movement was yesterday. Patient states that he has a squeezing pain in the right upper quadrant. Seems to be worse when he takes a deep breath. Denies any cardiac history. Patient has a past medical history of renal cell her [place], has left kidney removed. History of duodenal ulcer perforation and bowel resection. History of hiatal hernia, borderline personality disorder, chronic back pain and chronic bronchitis.Patient denies any recent fever, chills, chest pain, back pain, vomiting, numbness or tingling , dysuria or hematuria, or diarrhea, headaches or visual changes, or any other current symptoms - Related Data Home Medications Medication Instructions Recorded Confirmed Atenolol [Tenormin] 50 mg PO BID 04/30/16 11/27/16 Ergocalciferol (Vitamin D2) 50,000 unit PO TU 11/27/16 11/27/16 [Vitamin D2] HYDROcodone/APAP 7.5-325MG [[place] 1 tab PO TID PRN 11/27/16 11/27/16 7.5-325] Hydrochlorothiazide [Hydrodiuril] 12.5 mg PO DAILY 11/27/16 11/27/16 Losartan [Cozaar] 50 mg PO BID 11/27/16 11/27/16 Previous Rx's Medication Instructions Recorded Pantoprazole Sodium [Protonix] 20 mg PO BID #60 tablet. 03/21/16 Ondansetron Odt [Zofran Odt] 4 mg PO Q8HR PRN #12 tab 11/28/16 Allergies Allergy/AdvReac Type Severity Reaction Status Date / Time No Known Allergies Allergy Verified 11/27/16 20:40 Review of Systems ROS Statement: Those systems with pertinent positive or pertinent negative responses have been documented in the HPI. ROS Other: All systems not noted in ROS Statement are negative. Past Medical History Past Medical History: Cancer, COPD, GI Bleed, Hypertension Additional Past Medical History / Comment(s): RENAL CELL CA, DUODENAL ULCER, HIATAL HERNIA, BORDERLINE PERSONALITY DISORDER, OCD, chronic back pain, chronic bronchitis History of Any Multi-Drug Resistant Organisms: None Reported Past Surgical History: Hernia Repair Additional Past Surgical History / Comment(s): duodenal ulcer surgery, left kidney removal Past Anesthesia/Blood Transfusion Reactions: No Reported Reaction Past Psychological History: Anxiety Smoking Status: Current every day smoker Past Alcohol Use History: None Reported Past Drug Use History: None Reported - Past Family History Father Family Medical History: Cancer Additional Family Medical History / Comment(s): lung cancer General Exam - General Exam Comments Initial Comments: This is a 46-year-old male. No acute distress. Limitations: no limitations General appearance: alert, in no apparent distress Head exam: Present: atraumatic, normocephalic, normal inspection Eye exam: Present: normal appearance, PERRL, EOMI. Absent: scleral icterus, conjunctival injection, periorbital swelling ENT exam: Present: normal exam, mucous membranes moist Neck exam: Present: normal inspection. Absent: tenderness, meningismus, lymphadenopathy Respiratory exam: Present: normal lung sounds bilaterally. Absent: respiratory distress, wheezes, rales, rhonchi, stridor Cardiovascular Exam: Present: regular rate, normal rhythm, normal heart sounds. Absent: systolic murmur, diastolic murmur, rubs, gallop, clicks GI/Abdominal exam: Present: soft, tenderness (Right upper quadrant tenderness. Patient has protruberant abdomen.), normal bowel sounds. Absent: distended, guarding, rebound, rigid Extremities exam: Present: normal inspection, full ROM, normal capillary refill. Absent: tenderness, pedal edema, joint swelling, calf tenderness Back exam: Present: normal inspection Neurological exam: Present: alert, oriented X3, CN II-XII intact Psychiatric exam: Present: normal affect, normal mood Skin exam: Present: warm, dry, intact, normal color. Absent: rash Course Vital Signs 11/27/16 11/27/16 11/27/16 20:11 21:35 22:37 Temperature 98.7 F Pulse Rate 72 75 72 Respiratory 20 18 18 Rate Blood Pressure 147/85 174/77 149/75 O2 Sat by Pulse 97 97 98 Oximetry 11/27/16 11/28/16 23:20 00:28 Temperature 98 F Pulse Rate 64 57 L Respiratory 18 18 Rate Blood Pressure 183/72 153/73 O2 Sat by Pulse 99 98 Oximetry Medical Decision Making - Medical Decision Making This is a obese 46-year-old male chief complaint of right upper quadrant pain a few hours after eating. Patient chicken meal when this occurred. At this time patient's lab work was obtained and reviewed. Mildly elevated white blood count 12.8. Discusses could be just the inflammatory response. Patient liver enzymes are within normal limits. Patient given IV fluids and pain medication and GI cocktail. He does have some improvement of his pain and reports only for the 10. Gallbladder ultrasound was obtained. There is evidence of a dilated common bile duct but no obstructing stones. This is suggesting of a poorly functioning gallbladder. Discussed all these signs with the patient. Discussed that he does not need to have emergency cholecystectomy at this time however I did discuss following up with primary care provider and surgeon in regards to ordering a HIDA scan. Discussed that if he has any other further symptoms he can come to emergency department for further evaluation. Discussed that our the patient for some pain medicine and nausea medicine and she needs to have a clear liquid diet. Patient understands treatment plan will comply. Return parameters were discussed. - Lab Data Result diagrams: 11/27/16 21:20 11/27/16 21:20 Lab Results 11/27/16 11/27/16 11/27/16 Range/Units 21:20 21:20 21:25 WBC 12.9 H (3.8-10.6) k/uL RBC 4.85 (4.30-5.90) m/uL Hgb 14.0 (13.0-17.5) gm/dL Hct 44.4 (39.0-53.0) % MCV 91.4 (80.0-100.0) fL MCH 28.9 (25.0-35.0) pg MCHC 31.6 (31.0-37.0) g/dL RDW 14.2 (11.5-15.5) % Plt Count 339 (150-450) k/uL Neutrophils % 67 % Lymphocytes % 25 % Monocytes % 5 % Eosinophils % 1 % Basophils % 0 % Neutrophils # 8.7 H (1.3-7.7) k/uL Lymphocytes # 3.2 (1.0-4.8) k/uL Monocytes # 0.7 (0-1.0) k/uL Eosinophils # 0.1 (0-0.7) k/uL Basophils # 0.1 (0-0.2) k/uL Sodium 136 L (137-145) mmol/L Potassium 4.4 (3.5-5.1) mmol/L Chloride 101 (98-107) mmol/L Carbon Dioxide 25 (22-30) mmol/L Anion Gap 10 mmol/L BUN 19 (9-20) mg/dL Creatinine 1.31 H (0.66-1.25) mg/dL Est GFR (MDRD) Af Amer >60 (>60 ml/min/1.73 sqM) Est GFR (MDRD) Non-Af 59 (>60 ml/min/1.73 sqM) Glucose 92 (74-99) mg/dL Calcium 9.7 (8.4-10.2) mg/dL Total Bilirubin 0.2 (0.2-1.3) mg/dL AST 24 (17-59) U/L ALT 35 (21-72) U/L Alkaline Phosphatase 65 (38-126) U/L Total Protein 7.2 (6.3-8.2) g/dL Albumin 4.3 (3.5-5.0) g/dL Amylase 32 (30-110) U/L Lipase 77 (23-300) U/L Urine Color Light Yellow Urine Appearance Clear (Clear) Urine pH 5.5 (5.0-8.0) Ur Specific [place] 1.011 (1.001-1.035) Urine Protein 2+ H (Negative) Urine Glucose (UA) Negative (Negative) Urine Ketones Negative (Negative) Urine Blood Moderate H (Negative) Urine Nitrite Negative (Negative) Urine Bilirubin Negative (Negative) Urine Urobilinogen <2.0 (<2.0) mg/dL Ur Leukocyte Esterase Negative (Negative) Urine RBC 2 (0-5) /hpf Urine WBC 2 (0-5) /hpf Urine Bacteria Rare H (None) /hpf Urine Sperm Rare (None) /hpf - Radiology Data Radiology results: report reviewed Gallbladder ultrasound was reviewed and shows a mildly dilated common bile duct , no obstructing stones. This we consistent of a poor functioning gallbladder.No evidence of gallstones, no focal lobar defect. Patient's common bile duct appears to be slightly increased compared and on exam. Disposition Clinical Impression: Biliary colic Disposition: HOME SELF-CARE Condition: Good Instructions: Biliary Colic (ED), Abdominal Pain (ED) Additional Instructions: Follow-up with primary care provider and surgeon in regards to further evaluation of your gallbladder. Return to the emergency department if any alarming signs or symptoms occur. Prescriptions: Ondansetron Odt [Zofran Odt] 4 mg PO Q8HR PRN #12 tab PRN Reason: Nausea Referrals: Dorothea Choi MD [Primary Care Provider] - 1-2 days Justin Fernandez MD [STAFF PHYSICIAN] - 1-2 days Time of Disposition: 00:06
[2016-11-27 21:35] LABS: Basophils # (A) 0.1 k/uL (0-0.2); Basophils % (A) 0 %; CH 29.8; CHCM 32.8; Eosinophils # (A) 0.1 k/uL (0-0.7); Eosinophils % (A) 1 %; HCT 44.4 % (39.0-53.0); HDW 2.25; Luc # (Auto) 0.23; Luc % (Auto) 2; Lymphocytes # (A) 3.2 k/uL (1.0-4.8); Lymphocytes % (A) 25 %; MCH 28.9 pg (25.0-35.0); MCHC 31.6 g/dL (31.0-37.0); MCV 91.4 fL (80.0-100.0); Mean Platelet Volume 6.8; Monocytes # (A) 0.7 k/uL (0-1.0); Monocytes % (A) 5 %; Neutrophils # (A) 8.7 k/uL (1.3-7.7); Neutrophils % (A) 67 %; RBC 4.85 m/uL (4.30-5.90); RDW 14.2 % (11.5-15.5); WBC 12.9 k/uL (3.8-10.6); WBC (Perox) 12.64
[2016-11-27 21:36] VITALS: RESP 18
[2016-11-27 21:39] LABS: Appearance,Urine Clear (Clear); Bacteria,Urine Rare /hpf; Bilirubin,Urine Negative (Negative); Glucose,Urine (UA) Negative (Negative); Ketones,Urine Negative (Negative); Leukocyte Esterase,Urine Negative (Negative); Nitrite,Urine Negative (Negative); PH, Urine 5.5 (5.0-8.0); Particle Count 325; Protein,Urine 2+ (Negative); RBC,Urine 2 /hpf (0-5); Specific Gravity,Urine 1.011 (1.001-1.035); Sperm,Urine Rare /hpf; UA Billing (MACRO vs. MICRO) MICRO; Urobilinogen,Urine <2.0 mg/dL (<2.0); WBC,Urine 2 /hpf (0-5)
[2016-11-27 21:46] LABS: ALT 35 U/L (21-72); AST 24 U/L (17-59); Alkaline Phosphatase 65 U/L (38-126); Amylase 32 U/L (30-110); Anion Gap 10 mmol/L; Blood Urea Nitrogen 19 mg/dL (9-20); Calcium 9.7 mg/dL (8.4-10.2); Carbon Dioxide 25 mmol/L (22-30); Chloride 101 mmol/L (98-107); Glucose 92 mg/dL (74-99); Non-African American GFR(MDRD) 59 (>60 ml/min/1.73 sqM); Potassium 4.4 mmol/L (3.5-5.1); Sodium 136 mmol/L (137-145); Total Bilirubin 0.2 mg/dL (0.2-1.3); Total Protein 7.2 g/dL (6.3-8.2)
--- NOTE | 2016-11-27 22:02 | XR ---
EXAMINATION TYPE: XR KUB DATE OF EXAM: 11/27/2016 COMPARISON: 03/20/2016 HISTORY: Abdominal pain TECHNIQUE: 3 views FINDINGS: There are surgical clips in the left upper quadrant. There is no sign of intestinal obstruc tion or pneumoperitoneum. Fecal pattern is normal. Lung bases are clear. There are no pathologic calc ifications over the kidneys. IMPRESSION: Nonacute abdomen. No change.
[2016-11-27] MEDS ORDERED: MORPHINE SULFATE 2 MG/ML SYRINGE IVP ONE (23:10)
[2016-11-27] MEDS ORDERED: MAG HYDROX/AL HYDROX/SIMETH 30 ML, HYOSCYAMINE ELIXIR 10 ML, CIMETIDINE HCL 300 MG, LID... PO STA ×4 (23:10)
--- NOTE | 2016-11-27 23:21 | US ---
EXAMINATION TYPE: US gallbladder DATE OF EXAM: 11/27/2016 COMPARISON: 03/20/2016 CLINICAL HISTORY: Pain. RUQ pain EXAM MEASUREMENTS: Liver Length: 17.5 cm Gallbladder Wall: 0.27 cm CBD: 0.75 cm Right Kidney: 11.8 x 5.5 x 5.7 cm Pancreas: Obscured by bowel gas Liver: Increased attenuation Gallbladder: wnl Evidence for sonographic Styles's sign: No CBD: upper limits l Right Kidney: No hydronephrosis or masses seen IMPRESSION: Intrahepatic bile ducts are not dilated. Common bile duct is 7 mm. No evidence of gallsto nusrat. No focal liver defect. The large common bile duct raises the possibility of some degree of gallb ladder dysfunction. Duct appears increased compared to old exam.
[2016-11-28] MEDS ORDERED: ONDANSETRON 4 MG ODT STARTER PACK 2 TAB BTL PO STA (00:07)
[2016-11-28 00:30] VITALS: BP 153/73; PULSE 57; TEMP 98
== END 2016-11-28 00:28 | disposition home or self-care (01) ==
LOC: EC 20:00
DX: K80.50 Calculus of bile duct without cholangitis or cholecystitis without obstruction (principal); R11.0 Nausea; I10 Essential (primary) hypertension; F41.9 Anxiety disorder, unspecified; F60.3 Borderline personality disorder; F42.9 Obsessive-compulsive disorder, unspecified; Z85.528 Personal history of other malignant neoplasm of kidney; Z79.899 Other long term (current) drug therapy
CPT/HCPCS: 99285 ×2; 96374 ×2; 96375 ×3; 96361 ×4; 36415; 80053; 82150; 83690; 85025; 81001; 74000; 76705; J2405; J2270; S0119; J1170

== ENCOUNTER 2016-11-28 05:32 | Inpatient (IN) | payer OTHER ==
[2016-11-28] MEDS ORDERED: MORPHINE SULFATE 4 MG/ML SYRINGE IV STA (06:25)
[2016-11-28] MEDS ORDERED: SODIUM CHLORIDE 0.9% 1,000 ML IV STA (06:25)
[2016-11-28] MEDS ORDERED: SODIUM CHLORIDE 0.9% 500 ML IV STA (06:25)
[2016-11-28] MEDS ORDERED: PANTOPRAZOLE 40 MG/10 ML VIAL IVP STA (06:25)
--- NOTE | 2016-11-28 06:41 | ED ---
General Adult HPI - General Chief complaint: Abdominal Pain Stated complaint: Revisit-Abd pain Time Seen by Provider: 11/28/16 06:11 Source: patient, RN notes reviewed, old records reviewed Mode of arrival: ambulatory Limitations: no limitations - History of Present Illness Initial comments: This is a 46-year-old male to the ER for evaluation. Patient presents today for evaluation regarding about. Positive dollop a positive nausea. Patient has history of gallbladder disease, no surgery. He has seen Dr. Alonzo in the past. Patient was here in the emergency room earlier tonight was feeling better and wanted to be discharged home to follow-up as an outpatient the pain has returned worse than it was prior. - Related Data Home Medications Medication Instructions Recorded Confirmed Atenolol [Tenormin] 50 mg PO BID 04/30/16 11/28/16 Ergocalciferol (Vitamin D2) 50,000 unit PO TU 11/27/16 11/28/16 [Vitamin D2] HYDROcodone/APAP 7.5-325MG [[place] 1 tab PO TID PRN 11/27/16 11/28/16 7.5-325] Hydrochlorothiazide [Hydrodiuril] 12.5 mg PO DAILY 11/27/16 11/28/16 Losartan [Cozaar] 50 mg PO BID 11/27/16 11/28/16 Previous Rx's Medication Instructions Recorded Pantoprazole Sodium [Protonix] 20 mg PO BID #60 tablet. 03/21/16 Ondansetron Odt [Zofran Odt] 4 mg PO Q8HR PRN #12 tab 11/28/16 Allergies Allergy/AdvReac Type Severity Reaction Status Date / Time No Known Allergies Allergy Verified 11/27/16 20:40 Review of Systems ROS Statement: Those systems with pertinent positive or pertinent negative responses have been documented in the HPI. ROS Other: All systems not noted in ROS Statement are negative. Past Medical History Past Medical History: Cancer, COPD, GI Bleed, Hypertension Additional Past Medical History / Comment(s): RENAL CELL CA, DUODENAL ULCER, HIATAL HERNIA, BORDERLINE PERSONALITY DISORDER, OCD, chronic back pain, chronic bronchitis History of Any Multi-Drug Resistant Organisms: None Reported Past Surgical History: Hernia Repair Additional Past Surgical History / Comment(s): duodenal ulcer surgery, left kidney removal Past Anesthesia/Blood Transfusion Reactions: No Reported Reaction Past Psychological History: Anxiety Smoking Status: Current every day smoker Past Alcohol Use History: None Reported Past Drug Use History: None Reported - Past Family History Father Family Medical History: Cancer Additional Family Medical History / Comment(s): lung cancer General Exam Limitations: no limitations General appearance: alert, in no apparent distress Head exam: Present: atraumatic, normocephalic, normal inspection Eye exam: Present: normal appearance, PERRL, EOMI. Absent: scleral icterus, conjunctival injection, periorbital swelling ENT exam: Present: normal exam, mucous membranes moist Neck exam: Present: normal inspection. Absent: tenderness, meningismus, lymphadenopathy Respiratory exam: Present: normal lung sounds bilaterally. Absent: respiratory distress, wheezes, rales, rhonchi, stridor Cardiovascular Exam: Present: regular rate, normal rhythm, normal heart sounds. Absent: systolic murmur, diastolic murmur, rubs, gallop, clicks GI/Abdominal exam: Present: soft, distended, tenderness (RUQ), normal bowel sounds. Absent: guarding, rebound, rigid Extremities exam: Present: normal inspection, full ROM, normal capillary refill. Absent: tenderness, pedal edema, joint swelling, calf tenderness Back exam: Present: normal inspection Neurological exam: Present: alert, oriented X3, CN II-XII intact Psychiatric exam: Present: normal affect, normal mood Skin exam: Present: warm, dry, intact, normal color. Absent: rash Course Vital Signs 11/28/16 05:36 Temperature 98.6 F Pulse Rate 75 Respiratory 18 Rate O2 Sat by Pulse 97 Oximetry - Reevaluation(s) Reevaluation #1: 11/28/16 06:41 medical record in positive for GB disease, Medical Decision Making - Medical Decision Making 46 male to the ER with known gallbladder disease, past history of positive HIDA scan with biliary dyskinesia, patient will be admitted per Dr. Doss surgical evaluation and consult to the ER Disposition Clinical Impression: Abdominal pain, Hydrops of gallbladder, Biliary colic Disposition: ADMITTED IP TO THIS HOSP Condition: Good Referrals: Dorothea Choi MD [Primary Care Provider] - 1-2 days
[2016-11-28] MEDS ORDERED: MORPHINE SULFATE 2 MG/ML SYRINGE IVP ONE (06:47)
[2016-11-28] MEDS: ONDANSETRON 4 MG/2 ML VIAL IVP STA ×2 (06:50→14:48)
[2016-11-28 07:42] LABS: Basophils # (A) 0.1 k/uL (0-0.2); Basophils % (A) 0 %; CH 29.1; CHCM 31.4; Eosinophils # (A) 0.1 k/uL (0-0.7); Eosinophils % (A) 1 %; HCT 45.6 % (39.0-53.0); HDW 2.23; HGB 14.3 gm/dL (13.0-17.5); Luc # (Auto) 0.28; Luc % (Auto) 2; Lymphocytes # (A) 2.2 k/uL (1.0-4.8); Lymphocytes % (A) 18 %; MCH 29.2 pg (25.0-35.0); MCHC 31.4 g/dL (31.0-37.0); MCV 93.2 fL (80.0-100.0); Mean Platelet Volume 6.3; Monocytes # (A) 0.7 k/uL (0-1.0); Monocytes % (A) 5 %; Neutrophils # (A) 9.2 k/uL (1.3-7.7); Neutrophils % (A) 74 %; RBC 4.89 m/uL (4.30-5.90); WBC 12.5 k/uL (3.8-10.6); WBC (Perox) 13.29
[2016-11-28 07:50] LABS: ALT 32 U/L (21-72); AST 25 U/L (17-59); Alkaline Phosphatase 62 U/L (38-126); Amylase <30 U/L (30-110); Anion Gap 10 mmol/L; Blood Urea Nitrogen 16 mg/dL (9-20); Calcium 9.3 mg/dL (8.4-10.2); Carbon Dioxide 24 mmol/L (22-30); Chloride 104 mmol/L (98-107); Glucose 100 mg/dL (74-99); Non-African American GFR(MDRD) >60 (>60 ml/min/1.73 sqM); Potassium 4.6 mmol/L (3.5-5.1); Sodium 138 mmol/L (137-145); Total Bilirubin 0.5 mg/dL (0.2-1.3); Total Protein 6.9 g/dL (6.3-8.2)
[2016-11-28] MEDS: MORPHINE SULFATE 2 MG/ML SYRINGE IVP PRN (10:00)
[2016-11-28] MEDS ORDERED: MORPHINE SULFATE 2 MG/ML SYRINGE IVP PRN (13:15)
[2016-11-28] MEDS ORDERED: PANTOPRAZOLE 40 MG/10 ML VIAL IVP SCH (13:30)
--- NOTE | 2016-11-28 13:36 | P.GSHP ---
<Jessica Tirado - Last Filed: 11/28/16 13:34> History of Present Illness H&P Date: 11/28/16 Chief Complaint: Abdominal pain 46-year-old male presented on the day of admission to the emergency room to be evaluated for persistent ongoing right upper quadrant abdominal pain bloating with distended tenderness across the abdominal wall patient reported a nausea sensation no active emesis. Patient states he has a history of gallbladder disease is known to dr travis service has a history of peptic ulcer disease in the past on Protonix at home. Patient stated this discomfort was different than his esophageal reflux symptoms. Is also noted that the patient did have a similar episode in the beginning of the year. At that time did undergo a HIDA scan and ultrasound of the abdomen both which were essentially not consistent with cholecystitis except for mild biliary dyskinesis in the emergency room this admission the patient did have an ultrasound of the abdomen no acute abdomen no change noted ultrasound of the abdomen done in the emergency room no evidence of gallstones the large common bile duct raises the possibility of some degree of gallbladder dysfunction the duct appears increased compared to prior exam. Patient currently is denying any chest pain dizziness or lightheadedness or shortness of breath continues to report having right upper quadrant abdominal pain - Review of Systems Comment: Essentially unremarkable except as mentioned in the present illness Past Medical History Past Medical History: Cancer, COPD, GI Bleed, Hypertension Additional Past Medical History / Comment(s): RENAL CELL CA, DUODENAL ULCER, HIATAL HERNIA, BORDERLINE PERSONALITY DISORDER, PANIC EPISODES, ANXIETY, OCD, chronic back pain, chronic bronchitis History of Any Multi-Drug Resistant Organisms: None Reported Past Surgical History: Hernia Repair Additional Past Surgical History / Comment(s): duodenal ulcer surgery, left kidney removal Past Anesthesia/Blood Transfusion Reactions: No Reported Reaction Past Psychological History: Anxiety Additional Psychological History / Comment(s): OCD, borderline personality disorder Smoking Status: Current every day smoker Past Alcohol Use History: None Reported Additional Past Alcohol Use History / Comment(s): smoking 30 years 1- 1 1/2ppd Past Drug Use History: None Reported Additional Drug Use History / Comment(s): occasional marijuana - Past Family History Father Family Medical History: Cancer Additional Family Medical History / Comment(s): lung cancer Medications and Allergies Home Medications Medication Instructions Recorded Confirmed Type Pantoprazole Sodium [Protonix] 20 mg PO BID #60 tablet. 03/21/16 11/28/16 Rx Atenolol [Tenormin] 50 mg PO BID 04/30/16 11/28/16 History Ergocalciferol (Vitamin D2) 50,000 unit PO TU 11/27/16 11/28/16 History [Vitamin D2] HYDROcodone/APAP 7.5-325MG [[place] 1 tab PO TID PRN 11/27/16 11/28/16 History 7.5-325] Hydrochlorothiazide [Hydrodiuril] 12.5 mg PO DAILY 11/27/16 11/28/16 History Losartan [Cozaar] 50 mg PO BID 11/27/16 11/28/16 History Ondansetron Odt [Zofran Odt] 4 mg PO Q8HR PRN #12 tab 11/28/16 11/28/16 Rx Allergies Allergy/AdvReac Type Severity Reaction Status Date / Time No Known Allergies Allergy Verified 11/28/16 06:51 Surgical - Exam Vital Signs Temp Pulse Resp Pulse Ox 98.6 F 75 18 97 11/28/16 05:36 11/28/16 05:36 11/28/16 05:36 11/28/16 05:36 GENERAL APPEARANCE: 46-year-old male patient is alert, oriented, reports having right upper quadrant abdominal pain with a nausea sensation VITAL SIGNS: Reviewed HEENT: Head is normocephalic and atraumatic. Pupils are equal and reactive. The nares are patent. Oropharynx is clear without lesions. NECK: Supple without lymphadenopathy. Traches midline. HEART: S1, S2. Regular rate and rhythm. No murmur noted denying chest pain LUNGS: No crackles or wheezes are heard. On room air adequate air movement no shortness of breath no cough noted ABDOMEN: Soft, obese tenderness right upper quadrant nondistended with good bowel sounds. No peritoneal signs. No palpable organomegaly or masses. Reports a nausea sensation no active emesis no frequent stooling no difficulty in urinating EXTREMITIES: Normal skin color and turgor. No cyanosis, rash, ulceration, clubbing or edema. Radial pedal pulses are 2/4 bilaterally. NEUROLOGICAL: No focal deficits. Strength and sensation are grossly intact. Results - Labs 11/28/16 07:21 11/28/16 07:21 Abnormal Lab Results - Last 24 Hours (Table) 11/28/16 11/28/16 Range/Units 07:21 07:21 WBC 12.5 H (3.8-10.6) k/uL Neutrophils # 9.2 H (1.3-7.7) k/uL Glucose 100 H (74-99) mg/dL Amylase <30 L (30-110) U/L Diabetes panel 11/28/16 Range/Units 07:21 Sodium 138 (137-145) mmol/L Potassium 4.6 (3.5-5.1) mmol/L Chloride 104 (98-107) mmol/L Carbon Dioxide 24 (22-30) mmol/L BUN 16 (9-20) mg/dL Creatinine 1.23 (0.66-1.25) mg/dL Glucose 100 H (74-99) mg/dL Calcium 9.3 (8.4-10.2) mg/dL AST 25 (17-59) U/L ALT 32 (21-72) U/L Alkaline Phosphatase 62 (38-126) U/L Total Protein 6.9 (6.3-8.2) g/dL Albumin 4.1 (3.5-5.0) g/dL Calcium panel 11/28/16 Range/Units 07:21 Calcium 9.3 (8.4-10.2) mg/dL Albumin 4.1 (3.5-5.0) g/dL Pituitary panel 11/28/16 Range/Units 07:21 Sodium 138 (137-145) mmol/L Potassium 4.6 (3.5-5.1) mmol/L Chloride 104 (98-107) mmol/L Carbon Dioxide 24 (22-30) mmol/L BUN 16 (9-20) mg/dL Creatinine 1.23 (0.66-1.25) mg/dL Glucose 100 H (74-99) mg/dL Calcium 9.3 (8.4-10.2) mg/dL Adrenal panel 11/28/16 Range/Units 07:21 Sodium 138 (137-145) mmol/L Potassium 4.6 (3.5-5.1) mmol/L Chloride 104 (98-107) mmol/L Carbon Dioxide 24 (22-30) mmol/L BUN 16 (9-20) mg/dL Creatinine 1.23 (0.66-1.25) mg/dL Glucose 100 H (74-99) mg/dL Calcium 9.3 (8.4-10.2) mg/dL Total Bilirubin 0.5 (0.2-1.3) mg/dL AST 25 (17-59) U/L ALT 32 (21-72) U/L Alkaline Phosphatase 62 (38-126) U/L Total Protein 6.9 (6.3-8.2) g/dL Albumin 4.1 (3.5-5.0) g/dL Assessment and Plan Plan: Impression Present on admission right upper quadrant pain suspect due to cholelithiasis Morbid obesity BMI 41 Chronic pain with opiate dependency Status post EGD April 2016 with chronic esophagitis Plan Patient will be scheduled today for a lap cholecystectomy Resume home meds as appropriate DVT and GI prophylaxis IV fluid for hydration Pain control Further recommendations pending The above impression and plan of care have been discussed and directed by signing physician. Jessica Tirado nurse practitioner acting as scribe for signing physician. <Justin Travis - Last Filed: 11/28/16 14:13> Surgical - Exam Vital Signs Temp Pulse Resp Pulse Ox 98.6 F 75 18 97 11/28/16 05:36 11/28/16 05:36 11/28/16 05:36 11/28/16 05:36 Results - Labs 11/28/16 07:21 11/28/16 07:21 Abnormal Lab Results - Last 24 Hours (Table) 11/28/16 11/28/16 Range/Units 07:21 07:21 WBC 12.5 H (3.8-10.6) k/uL Neutrophils # 9.2 H (1.3-7.7) k/uL Glucose 100 H (74-99) mg/dL Amylase <30 L (30-110) U/L Diabetes panel 11/28/16 Range/Units 07:21 Sodium 138 (137-145) mmol/L Potassium 4.6 (3.5-5.1) mmol/L Chloride 104 (98-107) mmol/L Carbon Dioxide 24 (22-30) mmol/L BUN 16 (9-20) mg/dL Creatinine 1.23 (0.66-1.25) mg/dL Glucose 100 H (74-99) mg/dL Calcium 9.3 (8.4-10.2) mg/dL AST 25 (17-59) U/L ALT 32 (21-72) U/L Alkaline Phosphatase 62 (38-126) U/L Total Protein 6.9 (6.3-8.2) g/dL Albumin 4.1 (3.5-5.0) g/dL Calcium panel 11/28/16 Range/Units 07:21 Calcium 9.3 (8.4-10.2) mg/dL Albumin 4.1 (3.5-5.0) g/dL Pituitary panel 11/28/16 Range/Units 07:21 Sodium 138 (137-145) mmol/L Potassium 4.6 (3.5-5.1) mmol/L Chloride 104 (98-107) mmol/L Carbon Dioxide 24 (22-30) mmol/L BUN 16 (9-20) mg/dL Creatinine 1.23 (0.66-1.25) mg/dL Glucose 100 H (74-99) mg/dL Calcium 9.3 (8.4-10.2) mg/dL Adrenal panel 11/28/16 Range/Units 07:21 Sodium 138 (137-145) mmol/L Potassium 4.6 (3.5-5.1) mmol/L Chloride 104 (98-107) mmol/L Carbon Dioxide 24 (22-30) mmol/L BUN 16 (9-20) mg/dL Creatinine 1.23 (0.66-1.25) mg/dL Glucose 100 H (74-99) mg/dL Calcium 9.3 (8.4-10.2) mg/dL Total Bilirubin 0.5 (0.2-1.3) mg/dL AST 25 (17-59) U/L ALT 32 (21-72) U/L Alkaline Phosphatase 62 (38-126) U/L Total Protein 6.9 (6.3-8.2) g/dL Albumin 4.1 (3.5-5.0) g/dL Assessment and Plan Plan: The patient has significant right upper quadrant pain. His previous HIDA scan shows evidence of biliary dyskinesia. The patient will undergo laparoscopic cholecystectomy today for chronic cholecystitis. I've gone over the risks and benefits of procedure discussed with patient the high risk of conversion to open procedure due to his previous scars.
[2016-11-28] MEDS ORDERED: LACTATED RINGERS 1,000 ML IV ONE ×3 (13:48→17:41)
[2016-11-28] MEDS ORDERED: ONDANSETRON ODT 4 MG TAB PO PRN (13:49)
[2016-11-28] MEDS ORDERED: MIDAZOLAM 2 MG/2 ML VIAL IVP ONE (14:18)
[2016-11-28] MEDS ORDERED: HEPARIN SODIUM,PORCINE 5,000 UNIT/ML 1 ML VIAL SQ ONE (16:08)
[2016-11-28] MEDS ORDERED: DEXAMETHASONE SOD PHOSPHATE 10 MG/ML 1 ML VIAL IV ONE (16:09)
[2016-11-28] MEDS ORDERED: MIDAZOLAM 2 MG/2 ML VIAL ONE (16:10)
[2016-11-28] MEDS ORDERED: fentaNYL (PF) 50 MCG/ML 2 ML AMP ONE (16:10)
[2016-11-28] MEDS ORDERED: GLYCOPYRROLATE 0.2 MG/ML 2 ML VIAL ONE (16:10)
[2016-11-28] MEDS ORDERED: SUCCINYLCHOLINE CHLORIDE 100 MG/5 ML SYR IV ONE (16:10)
[2016-11-28] MEDS ORDERED: KETOROLAC 30 MG/ML 1 ML VIAL ONE (16:10)
[2016-11-28] MEDS ORDERED: HYDROmorphone (PF) 1 MG/ML ONE (16:10)
[2016-11-28] MEDS ORDERED: NEOSTIGMINE 1 MG/ML 10 ML VIAL ONE (16:10)
[2016-11-28] MEDS ORDERED: PROPOFOL 10 MG/ML 20 ML VIAL IV ONE (16:10)
[2016-11-28] MEDS ORDERED: LIDOCAINE 1% INJ 10MG/ML (20 ML MDV) ONE (16:10)
[2016-11-28] MEDS ORDERED: SODIUM CHLORIDE 0.9% 50 ML with ceFAZolin 2,000 MG IV ONE ×2 (16:10)
[2016-11-28] MEDS ORDERED: ROCURONIUM BROMIDE 10 MG/ML 10 ML VIAL IV ONE (16:10)
[2016-11-28] MEDS ORDERED: BUPIVACAINE (PF) 0.25% 30 ML VIAL SQ ONE ×2 (16:34→17:36)
[2016-11-28] MEDS ORDERED: LIDOCAINE 2%-EPI 1:100,000 20 ML VIAL SQ ONE ×2 (16:35→17:36)
[2016-11-28] MEDS ORDERED: HYDROmorphone 0.5 MG/0.5 ML SYRINGE IVP PRN (17:41)
[2016-11-28] MEDS ORDERED: METOCLOPRAMIDE 5 MG/ML 2 ML VIAL IVP PRN (17:41)
[2016-11-28] MEDS ORDERED: ACETAMINOPHEN TAB 325 MG TAB PO PRN (17:41)
[2016-11-28] MEDS ORDERED: ONDANSETRON 4 MG/2 ML VIAL IVP PRN (17:41)
[2016-11-28] MEDS ORDERED: NALOXONE 0.4 MG/ML 1 ML VIAL IV PRN (17:41)
--- NOTE | 2016-11-28 17:41 | P.OP ---
Date of Procedure: 11/28/16 Preoperative Diagnosis: Chronic cholecystitis Postoperative Diagnosis: Chronic cholecystitis Procedure(s) Performed: Diagnostic laparoscopy Open cholecystectomy Lysis of adhesions Anesthesia: LISSETT Surgeon: Justin Fernandez Estimated Blood Loss (ml): 40 Pathology: other (Gallbladder) Condition: stable Disposition: PACU Description of Procedure: The patient's placed on the operative table in the supine position. He received general anesthesia. His abdomen was prepped and draped usual fashion. The patient had a midline scar and a left subcostal scar. Using the Veress needle in the right lateral position the Veress needle was positioned pleural cavity. And then the pleural cavity was insufflated. The pressure regulator indicated high pressure after 2 minutes insufflation. There did not appear to be adequate amount of insufflation the pleural cavity. At this point a another skin incision was made in the right mid abdomen and then using a 5 mm optical trocar under direct visualization panel cavity is entered. There is small amount of pneumoperitoneum visualized. There were adhesions seen throughout the panel cavity. At this point the procedure was converted to an open procedure. The skin was incised in the standard right subcostal area. The left cautery the subcutaneous tissue divided. And then the abdominal wall was divided. The Veress needle position was visualized. There is no evidence of any injury to the bowel. This point the Veress needle was removed. There were dense adhesions in the right upper quadrant. Using sharp dissection the colon and bowel were dissected free off the liver. At this point the Bookwalter tract placed a wound. The gallbladder is visualized. There was inflammation the gallbladder. The gallbladder appeared to be intrahepatic. The gallbladder was taken down in a dome down fashion. The cystic artery was visualized and then clipped. And then divided using brittany carmona scissors. A right angle clamp was placed around the cystic duct. And then using a 2-0 Ethibond and a tie knot device the cystic duct was ligated. The gallbladder neck was then transected using brittany carmona scissors. And then a Endoloop was placed around the cystic duct stump. The wound was inspected for hemostasis. Several small bleeding points the liver bed were electrocauterized. Surgicel snow was placed in the liver bed. There is abdomen was irrigated there is no bleeding seen. The fascia was closed in 2 layers using table stranded PDS suture. The skin was closed brenna. Patient tolerated the procedure well was sent to recovery.
[2016-11-28] MEDS: HYDROmorphone 1 MG/ML 1 ML SYRINGE IVP ONE ×4 (18:18→18:45)
[2016-11-28] MEDS: KETOROLAC 30 MG/ML 1 ML VIAL IVP SCH ×2 (19:40→23:53)
[2016-11-28] MEDS: LOSARTAN 50 MG TAB PO SCH (20:04)
[2016-11-28] MEDS: ATENOLOL 50 MG TAB PO SCH (20:04)
[2016-11-28] MEDS: DOCUSATE 100 MG CAP PO SCH (20:04)
[2016-11-28] MEDS: FAMOTIDINE 20 MG TAB PO SCH (20:04)
[2016-11-29] MEDS: MORPHINE SULFATE 2 MG/ML SYRINGE IVP PRN (04:33)
[2016-11-29] MEDS: KETOROLAC 30 MG/ML 1 ML VIAL IVP SCH ×3 (06:21→17:46)
[2016-11-29] MEDS: NICOTINE 21MG/24HR PATCH TRANSDERM SCH (06:22)
[2016-11-29] MEDS ORDERED: PANTOPRAZOLE 40 MG TABLET PO SCH (07:30)
[2016-11-29 08:17] LABS: Basophils % (A) 0 %; CH 29.6; CHCM 32.1; Eosinophils % (A) 0 %; HCT 40.1 % (39.0-53.0); HDW 2.23; HGB 12.7 gm/dL (13.0-17.5); Luc # (Auto) 0.26; Luc % (Auto) 2; Lymphocytes # (A) 1.3 k/uL (1.0-4.8); Lymphocytes % (A) 8 %; MCH 29.3 pg (25.0-35.0); MCHC 31.6 g/dL (31.0-37.0); MCV 92.8 fL (80.0-100.0); Mean Platelet Volume 7.2; Monocytes % (A) 6 %; Neutrophils # (A) 14.5 k/uL (1.3-7.7); Neutrophils % (A) 85 %; RBC 4.33 m/uL (4.30-5.90); RDW 13.4 % (11.5-15.5); WBC 17.2 k/uL (3.8-10.6); WBC (Perox) 17.52
[2016-11-29 08:39] LABS: ALT 215 U/L (21-72); AST 175 U/L (17-59); Alkaline Phosphatase 88 U/L (38-126); Anion Gap 10 mmol/L; Blood Urea Nitrogen 18 mg/dL (9-20); Carbon Dioxide 20 mmol/L (22-30); Chloride 104 mmol/L (98-107); Glucose 128 mg/dL (74-99); Non-African American GFR(MDRD) >60 (>60 ml/min/1.73 sqM); Potassium 4.9 mmol/L (3.5-5.1); Sodium 134 mmol/L (137-145); Total Bilirubin 0.7 mg/dL (0.2-1.3); Total Protein 5.9 g/dL (6.3-8.2)
[2016-11-29] MEDS ORDERED: PANTOPRAZOLE 40 MG/10 ML VIAL IV SCH (09:00)
[2016-11-29] MEDS: HYDROcodone/APAP 5-325MG 1 EACH TAB PO PRN ×2 (10:20→17:46)
[2016-11-29] MEDS: DOCUSATE 100 MG CAP PO SCH ×2 (10:22→20:37)
[2016-11-29] MEDS: LOSARTAN 50 MG TAB PO SCH ×2 (10:22→20:36)
[2016-11-29] MEDS: ATENOLOL 50 MG TAB PO SCH ×2 (10:22→20:37)
[2016-11-29] MEDS: HYDROCHLOROTHIAZIDE 12.5 MG CAP PO SCH (10:23)
[2016-11-29] MEDS: PANTOPRAZOLE 40 MG/10 ML VIAL IVP SCH (10:23)
[2016-11-29] MEDS: FAMOTIDINE 20 MG TAB PO SCH ×2 (10:23→20:36)
--- NOTE | 2016-11-29 14:05 | P.PN ---
Subjective Progress Note Date: 11/29/16 46-year-old seen and examined resting comfortably in bed no new events. Denies chest pain dizziness or lightheadedness. States pain medication effective for pain control. Patient is postop November 28 open cholecystectomy lysis of adhesions for chronic cholecystitis Objective - Vital Signs Vital signs: Vital Signs Temp 97.4 F L 11/29/16 07:00 Pulse 64 11/29/16 07:00 Resp 16 11/29/16 07:00 BP 146/80 11/29/16 07:00 Pulse Ox 97 11/29/16 07:00 Intake & Output 11/28/16 11/29/16 11/29/16 18:59 06:59 18:59 Intake Total 1850 1100 Output Total 50 Balance 1800 1100 Intake: IV 1850 Oral 1100 Output: Estimated Blood Loss 50 Other: Voiding Method Toilet Urinal # Voids 2 1 - Exam Physical exam 46-year-old gentleman seen and examined resting comfortably in bed states pain medication effective for pain control pleasant cooperative oriented 3 Lungs essentially clear with adequate air movement Heart S1-S2 audible regular denying chest pain Abdomen surgical dressing dry slightly distended hypoactive bowel tones reports no nausea vomiting states not passing gas tolerating diet surgical tenderness appropriate Extremities no edema noted - Labs CBC & Chem 7: 11/29/16 07:30 11/29/16 07:30 Labs: Abnormal Lab Results - Last 24 Hours (Table) 11/29/16 11/29/16 Range/Units 07:30 07:30 WBC 17.2 H (3.8-10.6) k/uL Hgb 12.7 L (13.0-17.5) gm/dL Neutrophils # 14.5 H (1.3-7.7) k/uL Sodium 134 L (137-145) mmol/L Carbon Dioxide 20 L (22-30) mmol/L Creatinine 1.28 H (0.66-1.25) mg/dL Glucose 128 H (74-99) mg/dL AST 175 H (17-59) U/L ALT 215 H (21-72) U/L Total Protein 5.9 L (6.3-8.2) g/dL Albumin 3.4 L (3.5-5.0) g/dL Assessment and Plan Plan: Impression Present on admission right upper quadrant pain suspect due to cholelithiasis Morbid obesity BMI 41 Chronic pain with opiate dependency Status post EGD April 2016 with chronic esophagitis Postop November 28 diagnostic laparoscopy with an open cholecystectomy with lysis of adhesions Leukocytosis Elevated AST and ALT postop Plan Monitor liver enzymes repeat labs in the morning Continue postop surgical care Increase activity Diet to be advanced as tolerated Resume home meds as appropriate DVT and GI prophylaxis IV fluid for hydration Pain control Further recommendations pending The above impression and plan of care have been discussed and directed by signing physician. Jessica Tirado nurse practitioner acting as scribe for signing physician.
[2016-11-29] MEDS: MORPHINE SULFATE 4 MG/ML SYRINGE IVP PRN ×2 (14:22→20:41)
[2016-11-29] MEDS: ALBUTEROL NEBULIZED 2.5 MG/3 ML INHALATION SCH ×2 (15:46→19:16)
[2016-11-29] MEDS: SYMBICORT 160-4.5 MCG INHALER INHALATION SCH (19:16)
[2016-11-29] MEDS ORDERED: BISACODYL 10 MG SUPP RECTAL STA (19:45)
[2016-11-29 20:52] LABS: Glucose,Whole Blood 118 mg/dL (75-99)
[2016-11-30] MEDS: KETOROLAC 30 MG/ML 1 ML VIAL IVP SCH ×3 (00:22→11:51)
[2016-11-30] MEDS: HYDROcodone/APAP 5-325MG 1 EACH TAB PO PRN ×5 (00:27→23:21)
[2016-11-30] MEDS: MORPHINE SULFATE 4 MG/ML SYRINGE IVP PRN ×5 (03:59→23:33)
[2016-11-30] MEDS: NICOTINE 21MG/24HR PATCH TRANSDERM SCH (07:41)
[2016-11-30] MEDS: PANTOPRAZOLE 40 MG/10 ML VIAL IVP SCH (07:41)
[2016-11-30] MEDS: LOSARTAN 50 MG TAB PO SCH ×2 (07:42→22:31)
[2016-11-30] MEDS: FAMOTIDINE 20 MG TAB PO SCH ×2 (07:42→22:31)
[2016-11-30] MEDS: ATENOLOL 50 MG TAB PO SCH ×2 (07:42→22:31)
[2016-11-30] MEDS: DOCUSATE 100 MG CAP PO SCH ×2 (07:42→22:31)
[2016-11-30] MEDS: HYDROCHLOROTHIAZIDE 12.5 MG CAP PO SCH (07:42)
[2016-11-30] MEDS: ALBUTEROL NEBULIZED 2.5 MG/3 ML INHALATION SCH ×5 (08:23→19:52)
[2016-11-30] MEDS: SYMBICORT 160-4.5 MCG INHALER INHALATION SCH ×2 (08:23→19:49)
--- NOTE | 2016-11-30 10:37 | P.PN ---
Subjective Progress Note Date: 11/30/16 46-year-old male seen and examined at bedside. Patient's been up ambulating in the hallway this morning. Patient states pain medication effective for pain control tolerating diet no nausea no vomiting. Patient states had a bowel movement and is passing gas anxious to be discharged the white count is down to 13.1 hemoglobin 10.2 temp 98.1 Status post november this copy appendectomy for ruptured appendicitis with sepsis Objective - Vital Signs Vital signs: Vital Signs Temp 97.0 F L 11/30/16 07:00 Pulse 68 11/30/16 08:34 Resp 18 11/30/16 07:00 BP 110/68 11/30/16 07:00 Pulse Ox 94 L 11/30/16 07:00 Intake & Output 11/29/16 11/30/16 11/30/16 18:59 06:59 18:59 Intake Total 1200 Output Total 800 200 Balance -800 1000 Weight 131.5 kg Intake: Oral 1200 Output: Urine 800 200 Other: Voiding Method Toilet Toilet Urinal Urinal # Voids 2 # Bowel Movements 0 0 - Exam Physical exam 46-year-old gentleman up ambulating in the hallway pleasant cooperative oriented 3 Lungs essentially clear adequate air movement on room air Heart S1-S2 regular denying chest pain Abdomen surgical dressing monitoring amount of old bloody drainage noted. Soft not distended surgical tenderness appropriate bowel tones present states urinating no difficulty states tolerating diet Extremities no edema noted - Labs CBC & Chem 7: 11/29/16 07:30 11/29/16 07:30 Labs: Abnormal Lab Results - Last 24 Hours (Table) 11/29/16 Range/Units 20:48 POC Glucose (mg/dL) 118 H (75-99) mg/dL Assessment and Plan Plan: Impression Present on admission right upper quadrant pain suspect due to cholelithiasis Morbid obesity BMI 41 Chronic pain with opiate dependency Status post EGD April 2016 with chronic esophagitis Postop November 28 diagnostic laparoscopy with an open cholecystectomy with lysis of adhesions Leukocytosis Elevated AST and ALT postop Plan Monitor liver enzymes repeat labs in the morning Continue postop surgical care Increase activity Diet to be advanced as tolerated Resume home meds as appropriate DVT and GI prophylaxis IV fluid for hydration Pain control Further recommendations pending The above impression and plan of care have been discussed and directed by signing physician. Jessica Tirado nurse practitioner acting as scribe for signing physician.
[2016-11-30 11:25] LABS: ALT 468 U/L (21-72); AST 486 U/L (17-59); Alkaline Phosphatase 111 U/L (38-126); Anion Gap 11 mmol/L; Blood Urea Nitrogen 24 mg/dL (9-20); Calcium 8.9 mg/dL (8.4-10.2); Carbon Dioxide 21 mmol/L (22-30); Chloride 105 mmol/L (98-107); Glucose 108 mg/dL (74-99); Non-African American GFR(MDRD) 52 (>60 ml/min/1.73 sqM); Potassium 4.6 mmol/L (3.5-5.1); Sodium 137 mmol/L (137-145); Total Bilirubin 1.4 mg/dL (0.2-1.3); Total Protein 5.9 g/dL (6.3-8.2)
[2016-11-30 12:52] LABS: Basophils # (A) 0.1 k/uL (0-0.2); Basophils % (A) 1 %; CH 30.1; CHCM 32.1; Eosinophils % (A) 0 %; HCT 40.6 % (39.0-53.0); HDW 2.16; HGB 12.3 gm/dL (13.0-17.5); Luc # (Auto) 0.24; Luc % (Auto) 3; Lymphocytes # (A) 1.4 k/uL (1.0-4.8); Lymphocytes % (A) 15 %; MCH 28.7 pg (25.0-35.0); MCHC 30.4 g/dL (31.0-37.0); MCV 94.4 fL (80.0-100.0); Mean Platelet Volume 7.1; Monocytes # (A) 0.9 k/uL (0-1.0); Monocytes % (A) 9 %; Neutrophils # (A) 6.8 k/uL (1.3-7.7); Neutrophils % (A) 72 %; WBC 9.4 k/uL (3.8-10.6); WBC (Perox) 8.23
[2016-11-30 23:15] VITALS: RESP 16
[2016-12-01] MEDS: MORPHINE SULFATE 4 MG/ML SYRINGE IVP PRN (04:00)
[2016-12-01 07:28] VITALS: BP 137/79; TEMP 98.8
[2016-12-01] MEDS ORDERED: PANTOPRAZOLE 40 MG TABLET PO SCH (07:30)
[2016-12-01 08:13] LABS: Basophils # (A) 0.1 k/uL (0-0.2); Basophils % (A) 0 %; CHCM 31.8; Eosinophils # (A) 0.1 k/uL (0-0.7); Eosinophils % (A) 1 %; HCT 41.6 % (39.0-53.0); HGB 13.1 gm/dL (13.0-17.5); Luc # (Auto) 0.28; Luc % (Auto) 2; Lymphocytes # (A) 1.9 k/uL (1.0-4.8); Lymphocytes % (A) 16 %; MCH 28.8 pg (25.0-35.0); MCHC 31.5 g/dL (31.0-37.0); MCV 91.5 fL (80.0-100.0); Mean Platelet Volume 6.4; Monocytes # (A) 0.9 k/uL (0-1.0); Monocytes % (A) 7 %; Neutrophils # (A) 8.9 k/uL (1.3-7.7); Neutrophils % (A) 73 %; RBC 4.54 m/uL (4.30-5.90); RDW 12.7 % (11.5-15.5); WBC 12.1 k/uL (3.8-10.6); WBC (Perox) 12.25
[2016-12-01] MEDS: HYDROCHLOROTHIAZIDE 12.5 MG CAP PO SCH (08:24)
[2016-12-01] MEDS: LOSARTAN 50 MG TAB PO SCH (08:24)
[2016-12-01] MEDS: NICOTINE 21MG/24HR PATCH TRANSDERM SCH (08:24)
[2016-12-01] MEDS: DOCUSATE 100 MG CAP PO SCH (08:24)
[2016-12-01] MEDS: FAMOTIDINE 20 MG TAB PO SCH (08:25)
[2016-12-01] MEDS: ATENOLOL 50 MG TAB PO SCH (08:25)
[2016-12-01] MEDS: HYDROcodone/APAP 5-325MG 1 EACH TAB PO PRN (08:33)
[2016-12-01 08:40] LABS: ALT 456 U/L (21-72); AST 248 U/L (17-59); Alkaline Phosphatase 149 U/L (38-126); Anion Gap 11 mmol/L; Blood Urea Nitrogen 19 mg/dL (9-20); Calcium 9.3 mg/dL (8.4-10.2); Carbon Dioxide 24 mmol/L (22-30); Chloride 101 mmol/L (98-107); Glucose 94 mg/dL (74-99); Non-African American GFR(MDRD) >60 (>60 ml/min/1.73 sqM); Potassium 4.2 mmol/L (3.5-5.1); Sodium 136 mmol/L (137-145); Total Bilirubin 1.3 mg/dL (0.2-1.3); Total Protein 6.4 g/dL (6.3-8.2)
[2016-12-01] MEDS: ALBUTEROL NEBULIZED 2.5 MG/3 ML INHALATION SCH ×2 (08:41→11:22)
[2016-12-01] MEDS: SYMBICORT 160-4.5 MCG INHALER INHALATION SCH (08:42)
[2016-12-01] MEDS ORDERED: MORPHINE SULFATE 2 MG/ML SYRINGE IVP PRN (10:41)
[2016-12-01 10:42] VITALS: PULSE 85
--- NOTE | 2016-12-01 11:08 | P.DS ---
Providers Date of admission: 11/30/16 09:47 Expected date of discharge: 12/01/16 Attending physician: Justin Fernandez Primary care physician: Dorothea [facility] Course: This is a 46-year-old male who was admitted to the hospital complaints of right upper quadrant pain. The patient had been seen twice the emergency room with complaints of right quadrant pain 12 hours apart. Patient to the hospital for chronic cholecystitis. Patient underwent attempted laparoscopic cholecystectomy but however due to his significant adhesions related to previous perforated ulcer surgery his procedure was converted to open procedure. Patient did well postoperatively. Please chart for details. On the day of discharge his liver function tests were trending downward. He had no significant pain. Patient Condition at Discharge: Good Plan - Discharge Summary New Discharge Prescriptions: New Docusate [Colace] 100 mg PO BID #20 capsule HYDROcodone/APAP 7.5-325MG [[place] 7.5] 1 each PO Q4H PRN #30 tab PRN Reason: Pain No Action Pantoprazole Sodium [Protonix] 20 mg PO BID #60 tablet. Atenolol [Tenormin] 50 mg PO BID Hydrochlorothiazide [Hydrodiuril] 12.5 mg PO DAILY Losartan [Cozaar] 50 mg PO BID HYDROcodone/APAP 7.5-325MG [[place] 7.5-325] 1 tab PO TID PRN PRN Reason: Pain Ergocalciferol (Vitamin D2) [Vitamin D2] 50,000 unit PO TU Ondansetron Odt [Zofran Odt] 4 mg PO Q8HR PRN #12 tab PRN Reason: Nausea Discharge Medication List Pantoprazole Sodium [Protonix] 20 mg PO BID #60 tablet. 03/21/16 [Rx] Atenolol [Tenormin] 50 mg PO BID 04/30/16 [History] Ergocalciferol (Vitamin D2) [Vitamin D2] 50,000 unit PO TU 11/27/16 [History] HYDROcodone/APAP 7.5-325MG [[place] 7.5-325] 1 tab PO TID PRN 11/27/16 [History] Hydrochlorothiazide [Hydrodiuril] 12.5 mg PO DAILY 11/27/16 [History] Losartan [Cozaar] 50 mg PO BID 11/27/16 [History] Ondansetron Odt [Zofran Odt] 4 mg PO Q8HR PRN #12 tab 11/28/16 [Rx] Docusate [Colace] 100 mg PO BID #20 capsule 12/01/16 [Rx] HYDROcodone/APAP 7.5-325MG [[place] 7.5] 1 each PO Q4H PRN #30 tab 12/01/16 [Rx] Follow up Appointment(s)/Referral(s): Dorothea Choi MD [Primary Care Provider] - 1-2 days Justin Fernandez MD [STAFF PHYSICIAN] - 1 Week
== END 2016-12-01 11:44 | disposition home or self-care (01) | DRG 415 ==
LOC: EC 05:32 → 4MS4W 06:26 → OBSVTOIN 11-30 09:47
PROVIDERS: ADMIT Surgery; ATTEND Surgery
PROC: 0FJ44ZZ Inspection of Gallbladder, Percutaneous Endoscopic Approach (ICD-10-PCS; 2016-11-28)
PROC: 0FT40ZZ Resection of Gallbladder, Open Approach (ICD-10-PCS; principal; 2016-11-28 09:55)
DX: K81.1 Chronic cholecystitis (principal); F11.20 Opioid dependence, uncomplicated; I10 Essential (primary) hypertension; G89.29 Other chronic pain; K66.0 Peritoneal adhesions (postprocedural) (postinfection); E66.01 Morbid (severe) obesity due to excess calories; F17.200 Nicotine dependence, unspecified, uncomplicated; F60.3 Borderline personality disorder; F42.9 Obsessive-compulsive disorder, unspecified; M54.9 Dorsalgia, unspecified; F41.9 Anxiety disorder, unspecified; J44.9 Chronic obstructive pulmonary disease, unspecified; K21.9 Gastro-esophageal reflux disease without esophagitis; F12.90 Cannabis use, unspecified, uncomplicated; K44.9 Diaphragmatic hernia without obstruction or gangrene; Z53.31 Laparoscopic surgical procedure converted to open procedure; Z79.899 Other long term (current) drug therapy; Z87.11 Personal history of peptic ulcer disease; Z85.528 Personal history of other malignant neoplasm of kidney
CPT/HCPCS: 80053; 82150; 83690; 85025; 88304; 94640; 96374; 96375; 99285

== ENCOUNTER 2017-09-18 11:19 | Emergency (ER) | payer OTHER ==
--- NOTE | 2017-09-18 11:50 | ED ---
General Adult HPI - General Chief complaint: Recheck/Abnormal Lab/Rx Stated complaint: left side pain, monica Time Seen by Provider: 09/18/17 11:37 Source: patient, RN notes reviewed Mode of arrival: ambulatory Limitations: no limitations - History of Present Illness Initial comments: Patient 46-year-old male presented to the emergency room today with a chief complaint of left-sided flank pain. Patient does admit that 4 days ago began feeling some discomfort left side of the lower ribs and upper abdomen area. Patient states started shortly after moving a mattress. He does admit that his noticed that it's worse with movements at times and on exertion. States he noticed that when he went up the stairs of the day had increased pain. Patient also admits that worse if he coughs or sneezes. Patient denies any specific injury. He states he did not feel anything when he was moving a mattress. Patient denies any other complaints or symptoms. Denies any recent travel, leg swelling, or history of blood clot. Patient denies any recent fever, chills, shortness of breath, chest pain, nausea or vomiting, numbness or tingling, dysuria or hematuria, constipation or diarrhea, headaches or visual changes, or any other complaints. - Related Data Home Medications Medication Instructions Recorded Confirmed Ergocalciferol (Vitamin D2) 50,000 unit PO TU 11/27/16 09/18/17 [Vitamin D2] Hydrochlorothiazide [Hydrodiuril] 12.5 mg PO DAILY 11/27/16 09/18/17 Losartan [Cozaar] 50 mg PO BID 11/27/16 09/18/17 Fenofibrate 160 mg PO DAILY 09/18/17 09/18/17 Hydrocodone/Acetaminophen [[place] 1 tab PO TID PRN 09/18/17 09/18/17 10-325] Metoprolol Succinate (ER) [Toprol 50 mg PO BID 09/18/17 09/18/17 Xl] Previous Rx's Medication Instructions Recorded Pantoprazole Sodium [Protonix] 20 mg PO BID #60 tablet. 03/21/16 Cyclobenzaprine [Flexeril] 10 mg PO TID #20 tab 09/18/17 Allergies Allergy/AdvReac Type Severity Reaction Status Date / Time No Known Allergies Allergy Verified 09/18/17 11:57 Review of Systems ROS Statement: Those systems with pertinent positive or pertinent negative responses have been documented in the HPI. ROS Other: All systems not noted in ROS Statement are negative. Past Medical History Past Medical History: Cancer, COPD, GI Bleed, Hypertension Additional Past Medical History / Comment(s): RENAL CELL CA, DUODENAL ULCER, HIATAL HERNIA, BORDERLINE PERSONALITY DISORDER, PANIC EPISODES, ANXIETY, OCD, chronic back pain, chronic bronchitis History of Any Multi-Drug Resistant Organisms: None Reported Past Surgical History: Hernia Repair Additional Past Surgical History / Comment(s): duodenal ulcer surgery, left kidney removal Past Anesthesia/Blood Transfusion Reactions: No Reported Reaction Past Psychological History: Anxiety Smoking Status: Current every day smoker Past Alcohol Use History: None Reported Past Drug Use History: None Reported - Past Family History Father Family Medical History: Cancer Additional Family Medical History / Comment(s): lung cancer General Exam - General Exam Comments Initial Comments: General: The patient is awake and alert, in no distress, and does not appear acutely ill. Eye: Pupils are equal, round and reactive to light, extra-ocular movements are intact. No nystagmus. There is normal conjunctiva bilaterally. No signs of icterus. Ears, nose, mouth and throat: There are moist mucous membranes and no oral lesions. Neck: The neck is supple, there is no tenderness or JVD. Cardiovascular: There is a regular rate and rhythm. No murmur, rub or gallop is appreciated. Respiratory: Lungs are clear to auscultation, respirations are non-labored, breath sounds are equal. No wheezes, stridor, rales, or rhonchi. Gastrointestinal: Soft, non-distended, non-tender abdomen without masses or organomegaly noted. There is no rebound or guarding present. No CVA tenderness. Musculoskeletal: Normal ROM, no tenderness. Strength 5/5. Sensation intact. Pulses equal bilaterally 2+. Neurological: A&O x 3. CN II-XII intact, There are no obvious motor or sensory deficits. Coordination appears grossly intact. Speech is normal. Skin: Skin is warm and dry and no rashes or lesions are noted. Psychiatric: Cooperative, appropriate mood & affect, normal judgment. Limitations: no limitations Course Vital Signs 09/18/17 09/18/17 11:28 13:24 Temperature 99.0 F Pulse Rate 90 100 Respiratory 20 18 Rate Blood Pressure 164/94 105/70 O2 Sat by Pulse 98 99 Oximetry Medical Decision Making - Medical Decision Making Patient reexamined at this time shows no signs of distress. He is resting. He denies any pain here in emergency room. Patient is perk negative. Patient's cardiac enzymes negative. Chest x-ray negative. Patient advised follow-up with his appetizer packer. Pain worse with movements and is felt to be somewhat musculoskeletal muscle relaxer is advised return if any symptoms increase or worsen. - Lab Data Result diagrams: 09/18/17 12:15 09/18/17 12:15 Lab Results 09/18/17 09/18/17 09/18/17 Range/Units 12:15 12:15 12:15 WBC 10.3 (3.8-10.6) k/uL RBC 4.36 (4.30-5.90) m/uL Hgb 12.5 L (13.0-17.5) gm/dL Hct 38.3 L (39.0-53.0) % MCV 87.9 (80.0-100.0) fL MCH 28.7 (25.0-35.0) pg MCHC 32.7 (31.0-37.0) g/dL RDW 13.5 (11.5-15.5) % Plt Count 385 (150-450) k/uL Neutrophils % 66 % Lymphocytes % 23 % Monocytes % 6 % Eosinophils % 2 % Basophils % 0 % Neutrophils # 6.8 (1.3-7.7) k/uL Lymphocytes # 2.3 (1.0-4.8) k/uL Monocytes # 0.6 (0-1.0) k/uL Eosinophils # 0.3 (0-0.7) k/uL Basophils # 0.0 (0-0.2) k/uL PT (9.0-12.0) sec INR (<1.2) APTT (22.0-30.0) sec Sodium 137 (137-145) mmol/L Potassium 4.1 (3.5-5.1) mmol/L Chloride 104 (98-107) mmol/L Carbon Dioxide 25 (22-30) mmol/L Anion Gap 8 mmol/L BUN 19 (9-20) mg/dL Creatinine 1.28 H (0.66-1.25) mg/dL Est GFR (CKD-EPI)AfAm 77 (>60 ml/min/1.73 sqM) Est GFR (CKD-EPI)NonAf 66 (>60 ml/min/1.73 sqM) Glucose 134 H (74-99) mg/dL Calcium 9.3 (8.4-10.2) mg/dL Total Bilirubin 0.3 (0.2-1.3) mg/dL AST 21 (17-59) U/L ALT 24 (21-72) U/L Alkaline Phosphatase 44 (38-126) U/L Total Creatine Kinase 98 (55-170) U/L CK-MB (CK-2) 0.4 (0.0-2.4) ng/mL CK-MB (CK-2) Rel Index 0.4 Troponin I <0.012 (0.000-0.034) ng/mL Total Protein 6.3 (6.3-8.2) g/dL Albumin 3.7 (3.5-5.0) g/dL Amylase 37 (30-110) U/L Lipase 85 (23-300) U/L 09/18/17 Range/Units 12:15 WBC (3.8-10.6) k/uL RBC (4.30-5.90) m/uL Hgb (13.0-17.5) gm/dL Hct (39.0-53.0) % MCV (80.0-100.0) fL MCH (25.0-35.0) pg MCHC (31.0-37.0) g/dL RDW (11.5-15.5) % Plt Count (150-450) k/uL Neutrophils % % Lymphocytes % % Monocytes % % Eosinophils % % Basophils % % Neutrophils # (1.3-7.7) k/uL Lymphocytes # (1.0-4.8) k/uL Monocytes # (0-1.0) k/uL Eosinophils # (0-0.7) k/uL Basophils # (0-0.2) k/uL PT 9.8 (9.0-12.0) sec INR 1.0 (<1.2) APTT 24.6 (22.0-30.0) sec Sodium (137-145) mmol/L Potassium (3.5-5.1) mmol/L Chloride (98-107) mmol/L Carbon Dioxide (22-30) mmol/L Anion Gap mmol/L BUN (9-20) mg/dL Creatinine (0.66-1.25) mg/dL Est GFR (CKD-EPI)AfAm (>60 ml/min/1.73 sqM) Est GFR (CKD-EPI)NonAf (>60 ml/min/1.73 sqM) Glucose (74-99) mg/dL Calcium (8.4-10.2) mg/dL Total Bilirubin (0.2-1.3) mg/dL AST (17-59) U/L ALT (21-72) U/L Alkaline Phosphatase (38-126) U/L Total Creatine Kinase (55-170) U/L CK-MB (CK-2) (0.0-2.4) ng/mL CK-MB (CK-2) Rel Index Troponin I (0.000-0.034) ng/mL Total Protein (6.3-8.2) g/dL Albumin (3.5-5.0) g/dL Amylase (30-110) U/L Lipase (23-300) U/L Disposition Clinical Impression: Muscle strain Disposition: HOME SELF-CARE Condition: Good Instructions: Muscle Strain (ED) Additional Instructions: Please follow-up with appetizer packer as discussed. Please use muscle relaxer as prescribed. Where that may make you drowsy. Please return to emergency room if any symptoms increase or worsen. Prescriptions: Cyclobenzaprine [Flexeril] 10 mg PO TID #20 tab Is patient prescribed a controlled substance at d/c from ED?: No Referrals: Dorothea Choi MD [Primary Care Provider] - 1-2 days Time of Disposition: 13:36
[2017-09-18 12:36] LABS: Basophils % (A) 0 %; Eosinophils # (A) 0.3 k/uL (0-0.7); Eosinophils % (A) 2 %; HCT 38.3 % (39.0-53.0); HGB 12.5 gm/dL (13.0-17.5); Lymphocytes # (A) 2.3 k/uL (1.0-4.8); Lymphocytes % (A) 23 %; MCH 28.7 pg (25.0-35.0); MCHC 32.7 g/dL (31.0-37.0); MCV 87.9 fL (80.0-100.0); Mean Platelet Volume 6.5; Monocytes # (A) 0.6 k/uL (0-1.0); Monocytes % (A) 6 %; Neutrophils # (A) 6.8 k/uL (1.3-7.7); Neutrophils % (A) 66 %; Platelet Count 385 k/uL (150-450); RBC 4.36 m/uL (4.30-5.90); RDW 13.5 % (11.5-15.5); WBC 10.3 k/uL (3.8-10.6)
--- NOTE | 2017-09-18 12:36 | XR ---
EXAMINATION TYPE: XR chest 2V DATE OF EXAM: 09/18/2017 COMPARISON: 04/14/2016 HISTORY: Epigastric pain TECHNIQUE: Frontal and lateral views of the chest are obtained. FINDINGS: There is no focal air space opacity, pleural effusion, or pneumothorax seen. The cardiac silhouette size is within normal limits. The osseous structures are intact.. Minimal degenerative c hanges are appreciated of the thoracic spine. IMPRESSION: No acute cardiopulmonary process.
[2017-09-18 12:40] LABS: Partial Thromboplastin Time 24.6 sec (22.0-30.0); Prothrombin Time 9.8 sec (9.0-12.0)
[2017-09-18 12:44] LABS: Albumin 3.7 g/dL (3.5-5.0); Calcium 9.3 mg/dL (8.4-10.2); Potassium 4.1 mmol/L (3.5-5.1); Total Bilirubin 0.3 mg/dL (0.2-1.3); Total Protein 6.3 g/dL (6.3-8.2)
[2017-09-18 12:54] LABS: Creatine Kinase 98 U/L (55-170)
[2017-09-18 13:07] LABS: Creatine Kinase MB 0.4 ng/mL (0.0-2.4); Troponin I <0.012 ng/mL (0.000-0.034)
[2017-09-18 13:25] VITALS: BP 105/70; PULSE 100; RESP 18
[2017-09-18 13:49] VITALS: TEMP 98.9
== END 2017-09-18 13:47 | disposition home or self-care (01) ==
LOC: EC 11:19
DX: S39.011A Strain of muscle, fascia and tendon of abdomen, initial encounter (principal); I10 Essential (primary) hypertension; F17.200 Nicotine dependence, unspecified, uncomplicated; Z87.19 Personal history of other diseases of the digestive system; Z90.5 Acquired absence of kidney; Z85.528 Personal history of other malignant neoplasm of kidney; Z85.068 Personal history of other malignant neoplasm of small intestine; Z98.890 Other specified postprocedural states; Z79.899 Other long term (current) drug therapy; X58.XXXA Exposure to other specified factors, initial encounter
CPT/HCPCS: 36415; 71046; 80053; 82150; 82550; 82553; 83690; 84484; 85025; 85610; 85730; 93005; 99285

== ENCOUNTER → 2018-05-07 | Outpatient (CLI) | payer OTHER ==
[2018-05-07 09:19] LABS: Basophils # (A) 0.1 k/uL (0-0.2); Basophils % (A) 1 %; Eosinophils # (A) 0.2 k/uL (0-0.7); Eosinophils % (A) 2 %; HCT 43.3 % (39.0-53.0); HGB 13.6 gm/dL (13.0-17.5); Lymphocytes # (A) 2.3 k/uL (1.0-4.8); Lymphocytes % (A) 22 %; MCH 28.1 pg (25.0-35.0); MCHC 31.4 g/dL (31.0-37.0); MCV 89.6 fL (80.0-100.0); Mean Platelet Volume 6.4; Monocytes # (A) 0.7 k/uL (0-1.0); Monocytes % (A) 6 %; Neutrophils # (A) 7.4 k/uL (1.3-7.7); Neutrophils % (A) 68 %; Platelet Count 402 k/uL (150-450); RBC 4.83 m/uL (4.30-5.90); RDW 13.8 % (11.5-15.5); WBC 10.9 k/uL (3.8-10.6)
[2018-05-07 16:34] LABS: T4, Free (Free Thyroxine) 1.3 ng/dL (0.80-1.80)
[2018-05-07 16:41] LABS: Vitamin D 25 Hydroxy 29.9 ng/mL (30.0-100.0)
[2018-05-07 16:43] LABS: Albumin 4.5 g/dL (3.80-4.90); Albumin/Globulin Ratio 2.05 (1.60-3.17); Anion Gap 6.6 mmol/L (4.00-12.00); Calcium 9.7 mg/dL (8.7-10.3); Carbon Dioxide 26.4 mmol/L (21.6-31.8); Globulin 2.2 g/dL (1.6-3.3); LDL Cholesterol,Calculated 113.4 mg/dL (0.0-131.0); Magnesium 1.7 mg/dL (1.5-2.4); Potassium 4.1 mmol/L (3.5-5.5); Total Bilirubin 0.5 mg/dL (0.3-1.2); Total Protein 6.7 g/dL (6.2-8.2); VLDL Calculation 35.6 mg/dL (5.00-40.00)
[2018-05-07 18:22] LABS: Hemoglobin A1C 6.3 % (4.0-6.0)
== END | disposition home or self-care (01) ==
LOC: LABWHC1 08:38
PROVIDERS: ATTEND Nurse Practitioner
DX: E11.9 Type 2 diabetes mellitus without complications (principal); I10 Essential (primary) hypertension; Z79.899 Other long term (current) drug therapy
CPT/HCPCS: 36415; 80053; 80061; 82306; 82607; 83036; 83735; 84439; 84443; 85025

== ENCOUNTER 2018-05-16 14:03 | Emergency (ER) | payer OTHER ==
[2018-05-16 14:13] VITALS: RESP 16
[2018-05-16] MEDS ORDERED: MECLIZINE 12.5 MG TAB PO STA (14:48)
--- NOTE | 2018-05-16 14:50 | ED ---
General Adult HPI - General Chief complaint: Dizziness Stated complaint: Dizzy,near syncope Time Seen by Provider: 05/16/18 14:23 Source: patient Mode of arrival: ambulatory Limitations: no limitations - History of Present Illness Initial comments: Dictation was produced using [employer] dictation software. please excuse any grammatical, word or spelling errors. Chief Complaint: 47-year-old male with past medical history of COPD, GI bleed, hypertension, cancer presents with dizziness. History of Present Illness: 47-year-old male he has multiple comorbidities. He states that he was walking around at home previously facility in the closet. He states he looked down and experienced an intense episode of dizziness. He st ates that the dizziness improved. Patient was recently diagnosed with bronchitis is currently on steroids and Augmentin. Patient otherwise has been feeling well. No nausea vomiting or diarrhea. Denies any constitutional symptoms. Besides today's episode reports that he's been feeling well other jain. Patient states he has improved dizziness since being in emergency department. The ROS documented in this emergency department record has been reviewed and confirmed by me. Those systems with pertinent positive or negative responses have been documented in the HPI. All other systems are other negative and/or noncontributory. PHYSICAL EXAM: General Impression: Alert and oriented x3, not in acute distress HEENT: Normocephalic atraumatic, extra-ocular movements intact, pupils equal and reactive to light bilaterally, mucous membranes moist, impacted cerumen bilaterally Cardiovascular: Heart regular rate and rhythm, S1&S2 audible, no murmurs, rubs or gallops Chest: Lungs clear to auscultation bilaterally, no rhonchi, no wheeze, no rales Abdomen: Bowel sounds present, abdomen soft, non-tender, non-distended, no organomegaly Musculoskeletal: Pulses present and equal in all extremities, no peripheral edema Motor: no focal deficits noted Neurological: CN II-XII grossly intact, no focal motor or sensory deficits noted Skin: Intact with no visualized rashes Psych: Normal affect and mood ED course: 47 yo male presents with episode of dizziness prior to arrival. Vital signs upon arrival are within acceptable limits. Laboratory evaluation obtained. Status of 15.4. Mild thrombocytosis. Metabolic panel is unremarkable. Patient's labs appear to be his normal baseline. Chest x-ray reviewed by myself shows no acute processes. Patient given Antivert. Ears were irrigated to improve cerumen. Patient still has residual wax is told to buy peroxide eardrops at the local pharmacy. Patient told to continue his antibiotics. Patient prescription for Antivert when necessary dizziness. Patient advised follow up PCP upon discharge. EKG interpretation: Ventricular rate 90, normal sinus rhythm, VA interval 170, QS 90, QTc 450. No VA prolongation, no QTC prolongation, no ST or T-wave changes noted. Overall, this EKG is unremarkable - Related Data Home Medications Medication Instructions Recorded Confirmed Ergocalciferol (Vitamin D2) 50,000 unit PO Q7D 11/27/16 05/16/18 [Vitamin D2] Hydrochlorothiazide [Hydrodiuril] 12.5 mg PO DAILY 11/27/16 05/16/18 Losartan [Cozaar] 50 mg PO BID 11/27/16 05/16/18 Fenofibrate 160 mg PO HS 09/18/17 05/16/18 Hydrocodone/Acetaminophen [[place] 1 tab PO TID PRN 09/18/17 05/16/18 10-325] Metoprolol Succinate (ER) [Toprol 50 mg PO BID 09/18/17 05/16/18 Xl] ALPRAZolam [Xanax] 0.25 mg PO BID PRN 05/16/18 05/16/18 Amoxic-Pot Clav 875-125Mg 1 tab PO Q12HR 05/16/18 05/16/18 [Augmentin 875-125] Previous Rx's Medication Instructions Recorded Pantoprazole Sodium [Protonix] 20 mg PO BID #60 tablet. 03/21/16 Meclizine [Antivert] 25 mg PO BID PRN #14 tab 05/16/18 Allergies Allergy/AdvReac Type Severity Reaction Status Date / Time Iodinated Contrast- Oral and AdvReac KIDNEY Verified 05/16/18 15:19 IV Dye Review of Systems ROS Statement: Those systems with pertinent positive or pertinent negative responses have been documented in the HPI. ROS Other: All systems not noted in ROS Statement are negative. Past Medical History Past Medical History: Cancer, COPD, GI Bleed, Hypertension Additional Past Medical History / Comment(s): RENAL CELL CA, DUODENAL ULCER, HIATAL HERNIA, BORDERLINE PERSONALITY DISORDER, PANIC EPISODES, ANXIETY, OCD, chronic back pain, chronic bronchitis History of Any Multi-Drug Resistant Organisms: None Reported Past Surgical History: Hernia Repair Additional Past Surgical History / Comment(s): duodenal ulcer surgery, left kidney removal Past Anesthesia/Blood Transfusion Reactions: No Reported Reaction Past Psychological History: Anxiety Smoking Status: Current every day smoker Past Alcohol Use History: None Reported Past Drug Use History: None Reported - Past Family History Father Family Medical History: Cancer Additional Family Medical History / Comment(s): lung cancer General Exam Limitations: no limitations Course Vital Signs 05/16/18 05/16/18 14:11 15:57 Temperature 98.3 F 98.0 F Pulse Rate 94 80 Respiratory 16 16 Rate Blood Pressure 145/91 157/93 O2 Sat by Pulse 97 98 Oximetry Medical Decision Making - Lab Data Result diagrams: 05/16/18 15:02 05/16/18 15:02 Lab Results 05/16/18 05/16/18 Range/Units 15:02 15:02 WBC 15.4 H (3.8-10.6) k/uL RBC 4.95 (4.30-5.90) m/uL Hgb 13.9 (13.0-17.5) gm/dL Hct 43.3 (39.0-53.0) % MCV 87.4 (80.0-100.0) fL MCH 28.1 (25.0-35.0) pg MCHC 32.2 (31.0-37.0) g/dL RDW 14.3 (11.5-15.5) % Plt Count 548 H (150-450) k/uL Neutrophils % 63 % Lymphocytes % 29 % Monocytes % 5 % Eosinophils % 2 % Basophils % 1 % Neutrophils # 9.6 H (1.3-7.7) k/uL Lymphocytes # 4.4 (1.0-4.8) k/uL Monocytes # 0.8 (0-1.0) k/uL Eosinophils # 0.2 (0-0.7) k/uL Basophils # 0.1 (0-0.2) k/uL Sodium 137 (137-145) mmol/L Potassium 4.1 (3.5-5.1) mmol/L Chloride 103 (98-107) mmol/L Carbon Dioxide 24 (22-30) mmol/L Anion Gap 10 mmol/L BUN 24 H (9-20) mg/dL Creatinine 1.34 H (0.66-1.25) mg/dL Est GFR (CKD-EPI)AfAm 72 (>60 ml/min/1.73 sqM) Est GFR (CKD-EPI)NonAf 63 (>60 ml/min/1.73 sqM) Glucose 99 (74-99) mg/dL Calcium 10.0 (8.4-10.2) mg/dL Disposition Clinical Impression: Dizziness Disposition: HOME SELF-CARE Condition: Good Instructions (If sedation given, give patient instructions): Dizziness (ED) Prescriptions: Meclizine [Antivert] 25 mg PO BID PRN #14 tab PRN Reason: dizziness Is patient prescribed a controlled substance at d/c from ED?: No Referrals: Dorothea Choi MD [Primary Care Provider] - 1-2 days Time of Disposition: 16:50
[2018-05-16 15:12] LABS: Basophils # (A) 0.1 k/uL (0-0.2); Basophils % (A) 1 %; Eosinophils # (A) 0.2 k/uL (0-0.7); Eosinophils % (A) 2 %; HCT 43.3 % (39.0-53.0); HGB 13.9 gm/dL (13.0-17.5); Lymphocytes # (A) 4.4 k/uL (1.0-4.8); Lymphocytes % (A) 29 %; MCH 28.1 pg (25.0-35.0); MCHC 32.2 g/dL (31.0-37.0); MCV 87.4 fL (80.0-100.0); Mean Platelet Volume 6.7; Monocytes # (A) 0.8 k/uL (0-1.0); Monocytes % (A) 5 %; Neutrophils # (A) 9.6 k/uL (1.3-7.7); Neutrophils % (A) 63 %; Platelet Count 548 k/uL (150-450); RBC 4.95 m/uL (4.30-5.90); RDW 14.3 % (11.5-15.5); WBC 15.4 k/uL (3.8-10.6)
[2018-05-16 15:22] LABS: Potassium 4.1 mmol/L (3.5-5.1)
[2018-05-16 15:59] VITALS: BP 157/93; PULSE 80; TEMP 98
== END 2018-05-16 17:18 | disposition home or self-care (01) ==
LOC: EC 14:03
DX: R42 Dizziness and giddiness (principal); D47.3 Essential (hemorrhagic) thrombocythemia; I10 Essential (primary) hypertension; F17.200 Nicotine dependence, unspecified, uncomplicated; Z85.528 Personal history of other malignant neoplasm of kidney; Z79.899 Other long term (current) drug therapy; Z91.041 Radiographic dye allergy status
CPT/HCPCS: 36415; 71046; 80048; 85025; 93005; 99284

== ENCOUNTER → 2018-12-22 | Outpatient (CLI) | payer OTHER ==
[2018-12-22 10:15] LABS: Basophils # (A) 0.1 k/uL (0-0.2); Basophils % (A) 1 %; Eosinophils # (A) 0.1 k/uL (0-0.7); Eosinophils % (A) 1 %; HCT 41.9 % (39.0-53.0); HGB 13.6 gm/dL (13.0-17.5); Lymphocytes # (A) 2.3 k/uL (1.0-4.8); Lymphocytes % (A) 24 %; MCH 28.9 pg (25.0-35.0); MCHC 32.5 g/dL (31.0-37.0); MCV 88.9 fL (80.0-100.0); Mean Platelet Volume 5.7; Monocytes # (A) 0.5 k/uL (0-1.0); Monocytes % (A) 5 %; Neutrophils # (A) 6.4 k/uL (1.3-7.7); Neutrophils % (A) 66 %; Platelet Count 474 k/uL (150-450); RBC 4.72 m/uL (4.30-5.90); RDW 13.2 % (11.5-15.5); WBC 9.7 k/uL (3.8-10.6)
[2018-12-22 18:11] LABS: T4, Free (Free Thyroxine) 1.3 ng/dL (0.80-1.80)
[2018-12-22 18:22] LABS: African American GFR (CKD) 62.5 (60.0-200.0); Albumin 4.4 g/dL (3.80-4.90); Albumin/Globulin Ratio 2.2 (1.60-3.17); Anion Gap 9.1 mmol/L (4.00-12.00); BUN/Creat Ratio 14.67 Ratio (12.00-20.00); Calcium 9.6 mg/dL (8.7-10.3); Carbon Dioxide 25.9 mmol/L (21.6-31.8); Chol/HDL Ratio 4.49; LDL Cholesterol,Calculated 98.6 mg/dL (0.0-131.0); Magnesium 1.6 mg/dL (1.5-2.4); Potassium 4.5 mmol/L (3.5-5.5); Total Bilirubin 0.4 mg/dL (0.3-1.2); Total Protein 6.4 g/dL (6.2-8.2); VLDL Calculation 44.4 mg/dL (5.00-40.00)
[2018-12-22 19:43] LABS: Hemoglobin A1C 6.6 % (4.0-6.0)
== END | disposition home or self-care (01) ==
LOC: LABWHC1 09:01
PROVIDERS: ATTEND Nurse Practitioner
DX: I10 Essential (primary) hypertension (principal); E11.9 Type 2 diabetes mellitus without complications
CPT/HCPCS: 36415; 80053; 80061; 82306; 82607; 83036; 83735; 84439; 84443; 85025

== ENCOUNTER 2019-10-12 00:44 | Observation (INO) | payer OTHER ==
--- NOTE | 2019-10-12 01:20 | XR ---
EXAMINATION TYPE: XR chest 2V DATE OF EXAM: 10/12/2019 COMPARISON: 05/16/2018 HISTORY: Chest pain TECHNIQUE: FINDINGS: Heart and mediastinum are normal. Lungs are clear. Diaphragm is normal. There are chest ann-marie ds. Bony thorax is intact. IMPRESSION: Normal chest. No change.
[2019-10-12] MEDS: SODIUM CHLORIDE 0.9% 1,000 ML IV SCH ×3 (01:30→18:17)
[2019-10-12] MEDS ORDERED: ASPIRIN 81 MG PO ONE (01:30)
[2019-10-12 01:31] LABS: HCT 38.8 % (39.0-53.0); HGB 12.5 gm/dL (13.0-17.5); MCH 27.8 pg (25.0-35.0); MCHC 32.2 g/dL (31.0-37.0); MCV 86.5 fL (80.0-100.0); Mean Platelet Volume 7.1; Platelet Count 454 k/uL (150-450); RBC 4.48 m/uL (4.30-5.90); RDW 13.4 % (11.5-15.5); WBC 12.4 k/uL (3.8-10.6)
[2019-10-12 01:41] LABS: Albumin 3.9 g/dL (3.5-5.0); Calcium 9.4 mg/dL (8.4-10.2); Potassium 4.4 mmol/L (3.5-5.1); Total Bilirubin 0.3 mg/dL (0.2-1.3); Total Protein 6.4 g/dL (6.3-8.2)
[2019-10-12 01:50] LABS: INR 0.9 (<1.2); Partial Thromboplastin Time 23.8 sec (22.0-30.0); Prothrombin Time 9.6 sec (9.0-12.0)
--- NOTE | 2019-10-12 01:54 | ED ---
Chest Pain HPI - General Chief Complaint: Chest Pain Stated Complaint: Chest Pain Time Seen by Provider: 10/12/19 00:56 Source: patient Mode of arrival: ambulatory - History of Present Illness Initial Comments: Abran is an obese 48-year-old male with a history of hypertension hyperlipidemia and every day cigarette smoker of approximately 2 packs per day. Patient presents the ER today for evaluation of an approximately 10 minute episode of stabbing left-sided chest pain that was unprovoked. Patient reports pain occurred while he was sitting on his couch watching TV. Pain was associated with some shortness of breath and lightheadedness the patient does feel when he developed the chest pain he also had a panic attack. Denies any recent illness, cough, cold, congestion, fever, chills, nausea or vomiting. Patient has no known cardiac history but has never had a formal Workup. Does have family history of early cardiac disease. - Related Data Home Medications Medication Instructions Recorded Confirmed Ergocalciferol (Vitamin D2) 50,000 unit PO Q7D 11/27/16 05/16/18 [Vitamin D2] Losartan [Cozaar] 50 mg PO BID 11/27/16 05/16/18 hydroCHLOROthiazide [Hydrodiuril] 12.5 mg PO DAILY 11/27/16 05/16/18 Fenofibrate 160 mg PO HS 09/18/17 05/16/18 Hydrocodone/Acetaminophen [[place] 1 tab PO TID PRN 09/18/17 05/16/18 10-325] Metoprolol Succinate (ER) [Toprol 50 mg PO BID 09/18/17 05/16/18 Xl] ALPRAZolam [Xanax] 0.25 mg PO BID PRN 05/16/18 05/16/18 Amoxic-Pot Clav 875-125Mg 1 tab PO Q12HR 05/16/18 05/16/18 [Augmentin 875-125] Previous Rx's Medication Instructions Recorded Pantoprazole Sodium [Protonix] 20 mg PO BID #60 tablet. 03/21/16 Meclizine [Antivert] 25 mg PO BID PRN #14 tab 05/16/18 Allergies Allergy/AdvReac Type Severity Reaction Status Date / Time Iodinated Contrast Media AdvReac KIDNEY Verified 10/12/19 00:51 [Iodinated Contrast- Oral and IV Dye] Review of Systems ROS Statement: Those systems with pertinent positive or pertinent negative responses have been documented in the HPI. ROS Other: All systems not noted in ROS Statement are negative. EKG Findings - EKG Comments: EKG Findings:: EKG was obtained due to complaint of chest pain, EKG was obtained at 12:58 AM, rate is 91 rhythm is sinus there is a normal axis, there are normal intervals, CA 188, QRS 92, QTc 445 there are no acute ST elevations or depressions no evidence of acute ischemia or infarction. Past Medical History Past Medical History: Cancer, COPD, GI Bleed, Hypertension Additional Past Medical History / Comment(s): RENAL CELL CA, DUODENAL ULCER, HIATAL HERNIA, BORDERLINE PERSONALITY DISORDER, PANIC EPISODES, ANXIETY, OCD, chronic back pain, chronic bronchitis History of Any Multi-Drug Resistant Organisms: None Reported Past Surgical History: Hernia Repair Additional Past Surgical History / Comment(s): duodenal ulcer surgery, left kidney removal Past Anesthesia/Blood Transfusion Reactions: No Reported Reaction Past Psychological History: Anxiety Smoking Status: Current every day smoker Past Alcohol Use History: None Reported Past Drug Use History: None Reported - Past Family History Father Family Medical History: Cancer Additional Family Medical History / Comment(s): lung cancer General Exam - General Exam Comments Initial Comments: Physical Exam GENERAL: Patient is well-developed and well-nourished. Patient is nontoxic and well-hydrated and is in no distress. Obese HENT: Normocephalic, Atraumatic. EYES: PERRL, EOMI PULMONARY: Unlabored respirations. No audible rales rhonchi or wheezing was noted. CARDIOVASCULAR: There is a regular rate and rhythm without any murmurs gallops or rubs. ABDOMEN: Soft and nontender with normal bowel sounds. SKIN: Skin is clear with no lesions or rashes and otherwise unremarkable. : Deferred NEUROLOGIC: Patient is alert and oriented x3. Moving all extremities spontaneously MUSCULOSKELETAL: Normal extremities with adequate strength and full range of motion. No lower extremity swelling or edema. No calf tenderness. PSYCHIATRIC: Normal psychiatric evaluation. Course Vital Signs 10/12/19 10/12/19 10/12/19 00:47 02:00 03:00 Temperature 98.2 F 98.1 F 97.4 F L Pulse Rate 95 86 84 Pulse Rate [ Right] Respiratory 20 18 18 Rate Blood Pressure 164/86 110/67 104/60 Blood Pressure [Right Arm] O2 Sat by Pulse 98 97 96 Oximetry 10/12/19 10/12/19 03:37 04:00 Temperature 98 F Pulse Rate 80 Pulse Rate [ 77 Right] Respiratory 16 Rate Blood Pressure 110/70 Blood Pressure 103/70 [Right Arm] O2 Sat by Pulse 96 96 Oximetry Chest Pain MDM - MDM The patient was seen and evaluated, history is obtained from the patient 48-year-old gentleman with multiple cardiac risk factors including tobacco abuse, obesity, hypertension, hyperlipidemia, family history, male gender and as identified in the workup today previously undiagnosed and untreated diabetes Patient was presenting with left-sided chest pain that resolved prior to arrival Labs resulted, troponin was detectable but not elevated, patient had chronic kidney disease and was noted to have a creatinine of 1.3 in addition he has a glucose of 297. Patient states he has previously been prescribed metformin but states they gave him GI upset so hasn't taken it and he didn't know that he was actually diabetic. Initial EKG was nonischemic, chest x-ray was unremarkable patient was chest pain-free throughout his emergency department stay however given his history and risk factors I do feel he warrants admission for further cardiac evaluation, stefani hutson is agreeable. Admission orders were placed. Cardiology was placed, repeat troponins were ordered. Consult to broke beater operator for dietary education given the new diagnosis of diabetes was also placed. Disposition Clinical Impression: Chest pain, Newly diagnosed diabetes, CKD (chronic kidney disease), Obesity, morbid, BMI 40.0-49.9, Tobacco abuse, HTN (hypertension), HLD (hyperlipidemia) Disposition: ADMITTED IP TO THIS HOSP Condition: Stable Is patient prescribed a controlled substance at d/c from ED?: No
[2019-10-12] MEDS ORDERED: NITROGLYCERIN SL TABS 0.4 MG TAB SUBLINGUAL PRN (03:37)
[2019-10-12] MEDS ORDERED: NICOTINE 21MG/24HR PATCH TRANSDERM STA (03:55)
[2019-10-12] MEDS ORDERED: NICOTINE POLACRILEX 2 MG GUM BUCCAL PRN (06:00)
[2019-10-12 06:37] LABS: Glucose,Whole Blood 186 mg/dL (75-99)
[2019-10-12] MEDS: INSULIN ASPART (NovoLOG) 100 UNIT/ML VIAL SQ SCH ×4 (07:51→21:08)
[2019-10-12] MEDS ORDERED: ALPRAZolam 0.25 MG TAB PO PRN (08:11)
--- NOTE | 2019-10-12 08:25 | P.HPIM ---
History of Present Illness H&P Date: 10/12/19 Chief Complaint: Chest pain, new onset diabetes, COPD, hypertension and chronic kidney disea 48-year-old morbidly obese male [facility] with past medical history of hypertension, chronic back pain, history of renal cell carcinoma post nephrectomy was also had chronic history of obsessive-compulsive and bipolar disorders he is on disability, apparently patient seen in [facility] regular basis every 90 days and has been doing well until the last 48 hours when he developed to have midsternal chest pain radiating toward the left side associated with mild nausea palpitation did not have any presyncope like symptoms his pain was mild felt like as with increase heartburn and indigestion patient took some omeprazole did not make any difference he drove himself to the emergency department where was seen and evaluated was diagnosed with new-onset d iabetes and with his chest pain decided to admit patient to the hospital for serial cardiac enzyme cardiology consultation and workup Review of Systems CONSTITUTIONAL: Well-developed no acute respiratory distress. Morbidly obese EYES: No icterus sclerae, no conjunctivitis. EARS, NOSE, MOUTH, THROAT, and FACE: No sore throat, lymphadenopathy, carotid bruits or deformity. RESPIRATORY: No SOB cough or wheezes. CARDIOVASCULAR: No CP, Palpitation, PND, Orthopnea, or angina. GASTROINTESTINAL: No Abd pain, Nausea or vomiting, no Diarrhea or constipation, No GI Bleed, no distention or masses. GENITOURINARY: Negative for Hematuria or UTI, no kidney stones. INTEGUMENT/BREAST: Negative for any muscular injury with mild osteoarthritis.. HEMATOLOGIC/LYMPHATIC: Negative for bleed or purpura. MUSCULOSKELTAL: Negative for Myalgia or arthralgia. NEURLOGICAL: No LOC, Sz or syncope, blurred vision dizziness or abnormality.. BEHAVIORAL/PSYCH: Negative. ENDOCRINE: Negative. Social history: Patient smoked one and half pack a day for the last 30 years does not drink alcohol he uses marijuana recreational, his and lives with his he is on disability. Family history: His father at age 50 from lung cancer, mother is living at age 68 has hypertension and psych history, patient has a brother and sister both are living and well and one child with no major medical problem. Past Medical History Past Medical History: Cancer, COPD, GI Bleed, Hypertension Additional Past Medical History / Comment(s): RENAL CELL CA, DUODENAL ULCER, HIATAL HERNIA, BORDERLINE PERSONALITY DISORDER, PANIC EPISODES, ANXIETY, OCD, chronic back pain, chronic bronchitis History of Any Multi-Drug Resistant Organisms: None Reported Past Surgical History: Hernia Repair Additional Past Surgical History / Comment(s): duodenal ulcer surgery, left kidney removal Past Anesthesia/Blood Transfusion Reactions: No Reported Reaction Past Psychological History: Anxiety Smoking Status: Current every day smoker Past Alcohol Use History: None Reported Past Drug Use History: None Reported - Past Family History Father Family Medical History: Cancer Additional Family Medical History / Comment(s): lung cancer Medications and Allergies Home Medications Medication Instructions Recorded Confirmed Type Pantoprazole Sodium [Protonix] 20 mg PO BID #60 tablet. 03/21/16 05/16/18 Rx Ergocalciferol (Vitamin D2) 50,000 unit PO Q7D 11/27/16 05/16/18 History [Vitamin D2] Losartan [Cozaar] 50 mg PO BID 11/27/16 05/16/18 History hydroCHLOROthiazide [Hydrodiuril] 12.5 mg PO DAILY 11/27/16 05/16/18 History Fenofibrate 160 mg PO HS 09/18/17 05/16/18 History Hydrocodone/Acetaminophen [[place] 1 tab PO TID PRN 09/18/17 05/16/18 History 10-325] Metoprolol Succinate (ER) [Toprol 50 mg PO BID 09/18/17 05/16/18 History Xl] ALPRAZolam [Xanax] 0.25 mg PO BID PRN 05/16/18 05/16/18 History Amoxic-Pot Clav 875-125Mg 1 tab PO Q12HR 05/16/18 05/16/18 History [Augmentin 875-125] Meclizine [Antivert] 25 mg PO BID PRN #14 tab 05/16/18 Rx Allergies Allergy/AdvReac Type Severity Reaction Status Date / Time Iodinated Contrast Media AdvReac KIDNEY Verified 10/12/19 00:51 [Iodinated Contrast- Oral and IV Dye] Physical Exam Vitals: Vital Signs Temp Pulse Pulse Resp BP BP Pulse Ox 10/12/19 05:58 77 10/12/19 04:00 98 F 80 77 16 110/70 103/70 96 10/12/19 03:37 96 10/12/19 03:00 97.4 F L 84 18 104/60 96 10/12/19 02:00 98.1 F 86 18 110/67 97 10/12/19 00:47 98.2 F 95 20 164/86 98 Intake and Output 10/11/19 10/12/19 10/12/19 22:59 06:59 14:59 Other: Voiding Method Toilet Weight 147.418 kg General Appearance: Alert, cooperative, no distress, appears stated age. Morbidly obese Neck HEENT: Supple, no lymphadenopathy, no thyroid enlargement, no carotid bruits. Lungs: Decreased breath sound bilaterally fine rhonchi, mild expiratory wheezes with no distress. Chest Wall: Decrease expansion with deep inspiration no tenderness and no deformity was found on exam, no costochondral pain or discomfort. Heart: Regular rate and rhythm, S1, S2 normal, no murmur, rub or gallop. Back: Symmetric, no curvature, ROM normal, no CVA tenderness. Abdomen: Soft, non-tender, bowel sounds active all four quadrants, no masses, no organomegaly. Extremities: Extremities normal, atraumatic, no cyanosis or edema. Pulses: 2+ and symmetric. Skin: Skin color, texture, tugor normal, no rashes or lesions. Neurologic: Alert oriented x3 cranial nerves II through XII intact, no motor deficit, no abnormal balance or gait. Results CBC & Chem 7: 10/12/19 01:10 10/12/19 01:10 Labs: Abnormal Lab Results - Last 24 Hours (Table) 10/12/19 10/12/19 10/12/19 Range/Units 01:10 01:10 06:34 WBC 12.4 H (3.8-10.6) k/uL Hgb 12.5 L (13.0-17.5) gm/dL Hct 38.8 L (39.0-53.0) % Plt Count 454 H (150-450) k/uL Sodium 130 L (137-145) mmol/L Chloride 96 L (98-107) mmol/L BUN 21 H (9-20) mg/dL Creatinine 1.29 H (0.66-1.25) mg/dL Glucose 297 H (74-99) mg/dL POC Glucose (mg/dL) 186 H (75-99) mg/dL Thrombosis Risk Factor Assmnt - DVT/VTE Prophylaxis DVT/VTE Prophylaxis: Pharmacologic Prophylaxis ordered, Mechanical Prophylaxis ordered - Choose All That Apply Each Factor Represents 1 point: Age 41-60 years Other Risk Factors: No Thrombosis Risk Factor Assessment Total Risk Factor Score: 1 Thrombosis Risk Factor Assessment Level: Low Risk Assessment and Plan Assessment: 1 atypical chest pain: Patient has multi-risk factor with smoking, new onset of diabetes, hypertension and hyperlipidemia patient will be kept in the hospital consult cardiology keep patient nothing by mouth for possible stress test and echocardiogram continue CK with troponin 3 continue secondary prevention. 2 loss of diabetes: Add A1c to his lap, diabetic education, patient will be on Tradjenta and will add metformin 1000 mg twice a day we will calculate with he need with his Accu-Chek in the next 24 hours and titrate medication accordingly. 3 hypertension: Patient has been on metoprolol 50 mg twice a day, losartan 50 mg twice a day and hydrochlorothiazide resume medication. 4 hyperlipidemia: He is on fenofibrate 160 mg daily continue medication. 5 history of renal cell carcinoma post resection doing well. 6 history of smoking: Smoking cessation education was added patient will be on nicotine patch for now. 7 severe GERD and history of GI bleed post duodenal ulcer removed, continue patient on pantoprazole. 8 CK D stage III to: Continue to to watch kidney function patient apparently seen ship fitter as an outpatient on regular basis. 9 chronic pain syndrome: Has been on hydrocodone on an as-needed basis. 10 vitamin D deficiency: Has been on vitamin D 50,000 units every 7 days. 11 CODE STATUS: Full code. Admit patient to observation status for 1-2 nights stay.
[2019-10-12] MEDS: metFORMIN 500 MG TAB PO SCH ×2 (08:35→18:16)
[2019-10-12] MEDS: LINAGLIPTIN 5 MG TABLET PO SCH (08:47)
[2019-10-12] MEDS: METOPROLOL SUCCINATE (ER) 50 MG TAB.ER.24H PO SCH ×2 (08:47→20:53)
[2019-10-12] MEDS: lisinopriL 10 MG TAB PO SCH (08:47)
[2019-10-12] MEDS: hydroCHLOROthiazide 12.5 MG CAP PO SCH (08:47)
[2019-10-12] MEDS: PANTOPRAZOLE 40 MG TABLET PO SCH (08:47)
[2019-10-12] MEDS ORDERED: METOPROLOL TARTRATE 25 MG TAB PO SCH (09:00)
[2019-10-12] MEDS ORDERED: LOSARTAN 50 MG TAB PO SCH (09:00)
[2019-10-12] MEDS ORDERED: DOBUTamine DRIP for NUC MED 500 MG in DEXTROSE/WATER 1 250ML.BAG IV ONE (09:18)
--- NOTE | 2019-10-12 11:48 | CONS ---
CONSULTATION Mr. Nunez is a 48-year-old male with known history of chronic tobacco use, hypertension, who presented with symptoms of chest discomfort. The discomfort was left- sided, occurred at rest yesterday, lasted about 1-1/2 hours. He feels it was related to eating pizza. Patient has a chronic tobacco use with dyspnea on exertion but has no exertional chest discomfort except discomfort related to his eating habit and gas. He has no prior documented history of coronary artery disease. He has some peripheral edema. No PND. No orthopnea. No dizziness, palpitation, or syncope. He smokes about a 1-1/2 pack a day. Has a history of hypertension and prediabetes. MEDICATION: At home include Toprol-XL 50 mg twice a day, hydrochlorothiazide 12.5 mg daily, Zestril 10 mg daily, Protonix 40 mg daily, fluticasone includes Ellipta and Ventolin. REVIEW OF SYSTEMS: RESPIRATORY SYSTEM: He has dyspnea on exertion and a cough, history of obstructive lung disease. GI SYSTEM: No recent GI bleeding. No peptic ulcer disease. SYSTEM: No dysuria or hematuria. NERVOUS SYSTEM: No stroke or seizure. PHYSICAL EXAMINATION: He is a 48-year-old male, alert, oriented, in no apparent distress, obese. HEAD: Normocephalic. EYES: Sclerae nonicteric. NECK: Good upstroke, no bruit, no jugular venous distention. LUNGS: With decreased air exchange, no wheezes. HEART: Regular rate and rhythm S1, S2. No S3. No S4. No murmur or rub. ABDOMEN: Soft, obese, nontender. Positive bowel sounds, no organomegaly. EXTREMITIES: No edema. +1 edema intact pulses. LAB DATA: Revealed troponin 0.018, 0.021, 0.023. BUN and creatinine 21 and 1.09, blood sugar of 297. Hemoglobin of 12.5, white blood cell of 12.4. EKG revealed a sinus mechanism, normal axis and intervals. No acute changes. Chest x-ray shows no acute infiltrate. IMPRESSION: 1. Chest discomfort has some atypical features for ischemic heart disease, probably noncardiac in etiology in a patient with multiple risk factors. 2. Diabetes mellitus, not treated in the past. 3. Hyperlipidemia. 4. History of renal cell carcinoma post resection. 5. Stage 3 chronic kidney disease. 6. Obesity. RECOMMENDATION: From the cardiac standpoint, I would recommend to add a statin to his regimen. I would recommend to obtain a dobutamine stress echocardiogram to further assess the status and a transthoracic echo and depending on those results, further recommendation will be made. The importance of smoking cessation were discussed with the patient. Thank you for this consult. Will follow with you. ELLY / ZAIDN: [id number] /
--- NOTE | 2019-10-12 12:46 | ECHOF ---
Referral Reason:cp MEASUREMENTS -------- HEIGHT: 152.4 cm WEIGHT: 147.4 kg BP: RVIDd: 3.2 cm (< 3.3) IVSd: 1.2 cm (0.6 - 1.1) LVIDd: 4.8 cm (3.9 - 5.3) LVPWd: 1.3 cm (0.6 - 1.1) EDV(Teich): 109 ml IVSs: 1.5 cm LVIDs: 4.1 cm LVPWs: 0.8 cm %IVS Thck: 22 % ESV(Teich): 73 ml EF(Teich): 33 % %FS: 16 % SV(Teich): 36 ml LA Diam: 3.9 cm (2.7 - 3.8) Ao Diam: 3.5 cm (2.0 - 3.7) AV Cusp: 2.1 cm (1.5 - 2.6) MV E Chan: 0.70 m/s MV DecT: 189 ms MV Dec [place]: 3.7 m/s MV A Chan: 1.02 m/s MV E/A Ratio: 0.69 MV PHT: 55 ms TR Vmax: 2.73 m/s TR maxP.84 mmHg RAP: 5.00 mmHg RVSP: 34.84 mmHg FINDINGS -------- Sinus rhythm. This was a technically difficult study with suboptimal views. Morbid Obesity The left ventricular size is normal. There is mild concentric left ventricular hypertrophy. Overa ll left ventricular systolic function is normal with, an EF between 55 - 60 %. The right ventricle is normal in size. The left atrial size is normal. The right atrial size is normal. 5.0mg OF Lum[place] UTLIZED: 2 OR MORE WALL SEGMENTS NOT VISUALIZED. The aortic valve was not well visualized. There is no evidence of aortic regurgitation. The mitral valve is normal. Mild mitral regurgitation is present. Mild tricuspid regurgitation present. Right ventricular systolic pressure is normal at < 35 mmHg. The pulmonic valve was not well visualized. The aortic root size is normal. There is no pericardial effusion. CONCLUSIONS -------- 1. There is mild concentric left ventricular hypertrophy. 2. Overall left ventricular systolic function is normal with, an EF between 55 - 60 %. 3. The left atrial size is normal. 4. 5.0mg OF [place] UTLIZED: 2 OR MORE WALL SEGMENTS NOT VISUALIZED. 5. The aortic valve was not well visualized. 6. Mild mitral regurgitation is present. 7. Mild tricuspid regurgitation present. 8. The pulmonic valve was not well visualized. LEGAL BILLING COORDINATOR: Lorie Nichols RDCS
[2019-10-12] MEDS: HYDROcodone/APAP 10-325MG 1 EACH TAB PO PRN ×2 (13:32→21:09)
[2019-10-12 14:37] VITALS: BMI 46.6
--- NOTE | 2019-10-12 14:54 | ECHOS ---
STRESS ECHOCARDIOGRAM LUMASON: 2 Vial INDICATIONS: Chest pain. MEDICATIONS: BASELINE HEART RATE: 92 BASELINE BLOOD PRESSURE: 150/74 MAXIMUM HEART RATE: 145 MAXIMUM BLOOD PRESSURE: 160/64 85% MPHR: 145 100% MPHR: 171 METS: MAXIMUM STAGE REACHED: TOTAL EXERCISE TIME: CLINICAL INFORMATION: Baseline rhythm is sinus mechanism, rate of 92, borderline interventricular conduction delay. Baseline blood pressure 150/74 mmHg. Patient received an infusion of dobutamine per protocol. Electrocardiograph monitoring revealed rare single PVCs. There was no evidence of diagnostic ischemic ST deviation. FINDINGS: Baseline echocardiogram revealed normal wall motion. At peak exercise, there was normal wall motion augmentation with no hypokinesis or dyskinesis. CONCLUSION: 1. Normal echocardiograph response to dobutamine infusion with rare PVCs. 2. Normal stress echocardiogram with no evidence of stress-induced ischemia. MMODL / IJN: [id number] /
[2019-10-12 17:55] LABS: Glucose,Whole Blood 240 mg/dL (75-99)
[2019-10-12] MEDS ORDERED: IPRATROPIUM-ALBUTEROL 3 ML NEB INHALATION PRN (20:36)
[2019-10-12 20:57] LABS: Glucose,Whole Blood 189 mg/dL (75-99)
[2019-10-12] MEDS ORDERED: FENOFIBRATE 160 MG TAB PO SCH (21:00)
[2019-10-13] MEDS: SODIUM CHLORIDE 0.9% 1,000 ML IV SCH ×2 (01:33→07:22)
[2019-10-13 04:26] VITALS: RESP 16
[2019-10-13 06:42] LABS: Glucose,Whole Blood 173 mg/dL (75-99)
[2019-10-13] MEDS: PANTOPRAZOLE 40 MG TABLET PO SCH (07:20)
[2019-10-13] MEDS: metFORMIN 500 MG TAB PO SCH (07:20)
[2019-10-13] MEDS: INSULIN ASPART (NovoLOG) 100 UNIT/ML VIAL SQ SCH (07:20)
[2019-10-13] MEDS: lisinopriL 10 MG TAB PO SCH (07:21)
[2019-10-13] MEDS: hydroCHLOROthiazide 12.5 MG CAP PO SCH (07:21)
[2019-10-13] MEDS: LINAGLIPTIN 5 MG TABLET PO SCH (07:21)
[2019-10-13] MEDS: METOPROLOL SUCCINATE (ER) 50 MG TAB.ER.24H PO SCH (07:22)
[2019-10-13] MEDS: HYDROcodone/APAP 10-325MG 1 EACH TAB PO PRN (07:26)
[2019-10-13 07:30] VITALS: BP 148/90; PULSE 86; TEMP 98
[2019-10-13] MEDS ORDERED: ATORVASTATIN 40 MG TAB PO SCH (09:00)
[2019-10-13] MEDS ORDERED: ASPIRIN 81 MG PO SCH (09:00)
[2019-10-13] MEDS ORDERED: ASPIRIN 325 MG TAB PO SCH (09:00)
[2019-10-13 09:10] LABS: Basophils # (A) 0.1 k/uL (0-0.2); Basophils % (A) 1 %; Eosinophils # (A) 0.2 k/uL (0-0.7); Eosinophils % (A) 2 %; HCT 41.1 % (39.0-53.0); HGB 12.8 gm/dL (13.0-17.5); Hypochromasia Slight; Lymphocytes # (A) 2.1 k/uL (1.0-4.8); Lymphocytes % (A) 17 %; MCH 27.5 pg (25.0-35.0); MCHC 31.1 g/dL (31.0-37.0); MCV 88.6 fL (80.0-100.0); Mean Platelet Volume 6.8; Monocytes # (A) 0.6 k/uL (0-1.0); Monocytes % (A) 5 %; Neutrophils # (A) 9.1 k/uL (1.3-7.7); Neutrophils % (A) 74 %; Platelet Count 455 k/uL (150-450); RBC 4.64 m/uL (4.30-5.90); RDW 13.2 % (11.5-15.5); WBC 12.3 k/uL (3.8-10.6)
[2019-10-13 09:22] LABS: Albumin 3.8 g/dL (3.5-5.0); Calcium 9.4 mg/dL (8.4-10.2); Potassium 4.8 mmol/L (3.5-5.1); Total Bilirubin 0.4 mg/dL (0.2-1.3); Total Protein 6.3 g/dL (6.3-8.2)
--- NOTE | 2019-10-13 09:41 | P.DS ---
Providers Date of admission: 10/12/19 03:37 Expected date of discharge: 10/13/19 Attending physician: Shay Chacon Consults: 10/12/19 03:37 Consult Physician Urgent Consulting Provider: [facility] Reason/Comments: chest pain, risk factors Do you want consulting provider notified?: Yes, Notify in am Primary care physician: [facility] Course: 48-year-old morbidly obese male [facility] with past medical history of hypertension, chronic back pain, history of renal cell carcinoma post nephrectomy was also had chronic history of obsessive-compulsive and bipolar disorders he is on disability, apparently patient seen in [facility] regular basis every 90 days and has been doing well until the last 48 hours when he developed to have midsternal chest pain radiating toward the left side associated with mild nausea palpitation did not have any presyncope like symptoms his pain was mild felt like as with increase heartburn and indigestion patient took some omeprazole did not make any difference he drove himself to the emergency department where was seen and evaluated was diagnosed with new-onset diabetes and with his chest pain decided to admit patient to the hospital for serial cardiac enzyme cardiology consultation and workup Discharge diagnosis 1 atypical chest pain: 2 loss of diabetes: 3 hypertension: 4 hyperlipidemia: 5 history of renal cell carcinoma post resection doing well. 6 history of smokin severe GERD and history of GI bleed post duodenal ulcer removed 8 CK D stage III to: 9 chronic pain syndrome: 10 vitamin D deficiency: Discharge plan: Home with self-care Impression and plan of care have been directed as dictated by the signing physician. Jessica Negrete nurse practitioner acting as scribe for signing physician. Patient Condition at Discharge: Stable Plan - Discharge Summary Discharge Rx Participant: No New Discharge Prescriptions: New Aspirin 81 mg PO DAILY chew metFORMIN HCL [Glucophage] 1,000 mg PO BID-W/MEALS #120 tab Atorvastatin [Lipitor] 40 mg PO DAILY #30 tab Nicotine Polacrilex [Nicorette] 2 mg BUCCAL Q2HR PRN #100 gum PRN Reason: Nicotine Cravings Linagliptin [Tradjenta] 10 mg PO DAILY #60 tablet Continue hydroCHLOROthiazide [Hydrodiuril] 12.5 mg PO QAM Ergocalciferol (Vitamin D2) [Vitamin D2] 50,000 unit PO MO Fenofibrate 160 mg PO HS Hydrocodone/Acetaminophen [[place] 10-325] 1 tab PO TID PRN PRN Reason: Pain Metoprolol Succinate (ER) [Toprol XL] 50 mg PO BID lisinopriL [Zestril] 10 mg PO HS Ipratropium-Albuterol Nebulize [Duoneb 0.5 mg-3 mg/3 ml Soln] 3 ml INHALATION RT-QID PRN PRN Reason: Shortness Of Breath Umeclidinium [place] [Incruse Ellipta] 2 puff INHALATION RT-DAILY Albuterol Sulfate [Ventolin HFA] 2 puff INHALATION RT-QID PRN PRN Reason: Shortness Of Breath Pantoprazole Sodium [Protonix] 40 mg PO QAM Fluticasone/Salmeterol [Fluticasone-Salmeterol 113-14] 1 puff INHALATION RT- Q12H Omeprazole Magnesium [PriLOSEC OTC] 20 mg PO DAILY PRN PRN Reason: GI issues Discontinued metFORMIN HCL [Glucophage] 500 mg PO BID Discharge Medication List Ergocalciferol (Vitamin D2) [Vitamin D2] 50,000 unit PO MO 11/27/16 [History] hydroCHLOROthiazide [Hydrodiuril] 12.5 mg PO QAM 11/27/16 [History] Fenofibrate 160 mg PO HS 09/18/17 [History] Hydrocodone/Acetaminophen [[place] 10-325] 1 tab PO TID PRN 09/18/17 [History] Metoprolol Succinate (ER) [Toprol XL] 50 mg PO BID 09/18/17 [History] Albuterol Sulfate [Ventolin HFA] 2 puff INHALATION RT-QID PRN 10/12/19 [History] Fluticasone/Salmeterol [Fluticasone-Salmeterol 113-14] 1 puff INHALATION RT-Q12H 10/12/19 [History] Ipratropium-Albuterol Nebulize [Duoneb 0.5 mg-3 mg/3 ml Soln] 3 ml INHALATION RT-QID PRN 10/12/19 [History] Omeprazole Magnesium [PriLOSEC OTC] 20 mg PO DAILY PRN 10/12/19 [History] Pantoprazole Sodium [Protonix] 40 mg PO QAM 10/12/19 [History] Umeclidinium [place] [Incruse Ellipta] 2 puff INHALATION RT-DAILY 10/12/19 [History] lisinopriL [Zestril] 10 mg PO HS 10/12/19 [History] Aspirin 81 mg PO DAILY chew 10/13/19 [Rx] Atorvastatin [Lipitor] 40 mg PO DAILY #30 tab 10/13/19 [Rx] Linagliptin [Tradjenta] 10 mg PO DAILY #60 tablet 10/13/19 [Rx] Nicotine Polacrilex [Nicorette] 2 mg BUCCAL Q2HR PRN #100 gum 10/13/19 [Rx] metFORMIN HCL [Glucophage] 1,000 mg PO BID-W/MEALS #120 tab 10/13/19 [Rx] Follow up Appointment(s)/Referral[facility]s): [facility] [Primary Care Provider] - 1-2 days Patient Instructions/Handouts: Type 2 Diabetes in Adults: New Diagnosis (DC) Discharge Disposition: HOME SELF-CARE
[2019-10-19] MEDS ORDERED: ERGOCALCIFEROL 50,000 UNIT CAP PO SCH (09:00)
== END 2019-10-13 09:38 | disposition home or self-care (01) ==
LOC: EC 00:44 → 1SOBS 03:37
PROVIDERS: ADMIT Internal Medicine Geriatric Medicine; ATTEND Internal Medicine Geriatric Medicine
DX: R07.9 Chest pain, unspecified (principal)
CPT/HCPCS: 96360; 96361; 99285; 36415; 94640; 93005; 80061; 80053 ×2; 83690; 83735; 84484; 85025; 85027; 85610; 85730; 71046; G0378 ×2; C8929; C8930; S4990; J1250; Q9950; 93306; 93351

== ENCOUNTER 2020-01-28 09:27 | Emergency (ER) | payer OTHER ==
[2020-01-28 09:36] VITALS: RESP 18
[2020-01-28] MEDS ORDERED: DILTIAZEM 125 MG in SODIUM CHLORIDE 0.9% 100 ML IV SCH ×2 (09:45→11:30)
[2020-01-28] MEDS ORDERED: SODIUM CHLORIDE 0.9% 1,000 ML IV STA (09:45)
[2020-01-28] MEDS ORDERED: DILTIAZEM DRIP BOLUS FROM BAG 1 MG SOLN IV ONE ×2 (09:45→11:20)
[2020-01-28 10:07] LABS: Basophils # (A) 0.1 k/uL (0-0.2); Basophils % (A) 1 %; Eosinophils # (A) 0.3 k/uL (0-0.7); Eosinophils % (A) 3 %; HCT 42.2 % (39.0-53.0); Lymphocytes # (A) 2.4 k/uL (1.0-4.8); Lymphocytes % (A) 23 %; MCH 28.4 pg (25.0-35.0); MCHC 33.2 g/dL (31.0-37.0); MCV 85.3 fL (80.0-100.0); Mean Platelet Volume 7.5; Monocytes # (A) 0.5 k/uL (0-1.0); Monocytes % (A) 5 %; Neutrophils # (A) 7.2 k/uL (1.3-7.7); Neutrophils % (A) 68 %; Platelet Count 312 k/uL (150-450); RBC 4.94 m/uL (4.30-5.90); RDW 13.3 % (11.5-15.5); WBC 10.5 k/uL (3.8-10.6)
[2020-01-28 10:17] LABS: INR 0.9 (<1.2); Partial Thromboplastin Time 22.5 sec (22.0-30.0); Prothrombin Time 9.7 sec (9.0-12.0)
[2020-01-28 10:20] LABS: Albumin 4.3 g/dL (3.5-5.0); Calcium 9.5 mg/dL (8.4-10.2); Magnesium 1.2 mg/dL (1.6-2.3); Potassium 4.7 mmol/L (3.5-5.1); Total Bilirubin 0.6 mg/dL (0.2-1.3); Total Protein 7.2 g/dL (6.3-8.2)
--- NOTE | 2020-01-28 11:00 | XR ---
EXAMINATION TYPE: XR chest 2V DATE OF EXAM: 01/28/2020 COMPARISON: Chest x-ray October 12, 2019. HISTORY: Dysrhythmia. TECHNIQUE: Frontal and lateral views of the chest are obtained. FINDINGS: There is no suspicious new focal air space opacity, pleural effusion, or pneumothorax seen . Overlying EKG leads are redemonstrated. The cardiac silhouette size is stable and within normal macias its. The osseous structures are intact. Surgical clips in the epigastric region redemonstrated. IMPRESSION: No acute cardiopulmonary process. No significant change from prior.
[2020-01-28] MEDS ORDERED: MAGNESIUM SULFATE-D5W PMX 1 GM in DEXTROSE/WATER 1 100ML.BAG IVPB ONE (11:04)
[2020-01-28] MEDS ORDERED: HYDROcodone/APAP 10-325MG 1 EACH TAB PO ONE (12:39)
--- NOTE | 2020-01-28 13:17 | ED ---
Arrhythmia/Palpitations HPI - General Chief Complaint: Arrhythmia/Palpitations Stated Complaint: High heart rate Time Seen by Provider: 01/28/20 09:39 Source: patient, RN notes reviewed Mode of arrival: ambulatory Limitations: no limitations - History of Present Illness Initial Comments: This is a 49-year-old male who presents with complaints of palpitations. He states this started suddenly this morning around 8:50 AM while he was making coffee. No chest pain no fevers chills nausea vomiting sweats he is had intermittent episodes like this in the past. No other complaints or modifying factors at this time MD Complaint: rapid heart beat, palpitations - Related Data Home Medications Medication Instructions Recorded Confirmed hydroCHLOROthiazide [Hydrodiuril] 12.5 mg PO QAM 11/27/16 01/28/20 Fenofibrate 160 mg PO HS 09/18/17 01/28/20 Hydrocodone/Acetaminophen [[place] 1 tab PO TID PRN 09/18/17 01/28/20 10-325] Metoprolol Succinate (ER) [Toprol 50 mg PO BID 09/18/17 01/28/20 XL] Albuterol Sulfate [Ventolin HFA] 2 puff INHALATION RT-QID PRN 10/12/19 01/28/20 Pantoprazole Sodium [Protonix] 40 mg PO QAM 10/12/19 01/28/20 lisinopriL [Zestril] 10 mg PO HS 10/12/19 01/28/20 Cholecalciferol (Vitamin D3) 125 mcg PO DAILY 01/28/20 01/28/20 [Vitamin D3] Linagliptin [Tradjenta] 5 mg PO BID 01/28/20 01/28/20 Loratadine 10 mg PO DAILY PRN 01/28/20 01/28/20 Tiotropium [place] [Spiriva] 1 cap INHALATION RT-HS 01/28/20 01/28/20 Previous Rx's Medication Instructions Recorded metFORMIN HCL [Glucophage] 1,000 mg PO BID-W/MEALS #120 tab 10/13/19 Magnesium 200 mg PO DAILY #14 tablet 01/28/20 Metoprolol Succinate [Toprol XL] 75 mg PO BID #60 tab 01/28/20 Allergies Allergy/AdvReac Type Severity Reaction Status Date / Time Iodinated Contrast Media AdvReac KIDNEY Verified 12/10/20 11:08 [Iodinated Contrast- Oral and IV Dye] Review of Systems ROS Statement: Those systems with pertinent positive or pertinent negative responses have been documented in the HPI. ROS Other: All systems not noted in ROS Statement are negative. Past Medical History Past Medical History: Cancer, COPD, GI Bleed, Hypertension Additional Past Medical History / Comment(s): RENAL CELL CA, DUODENAL ULCER, HIATAL HERNIA, BORDERLINE PERSONALITY DISORDER, PANIC EPISODES, ANXIETY, OCD, chronic back pain, chronic bronchitis History of Any Multi-Drug Resistant Organisms: None Reported Past Surgical History: Hernia Repair Additional Past Surgical History / Comment(s): duodenal ulcer surgery, left kidney removal Past Anesthesia/Blood Transfusion Reactions: No Reported Reaction Past Psychological History: Anxiety Smoking Status: Current every day smoker Past Alcohol Use History: None Reported Past Drug Use History: None Reported - Past Family History Father Family Medical History: Cancer Additional Family Medical History / Comment(s): lung cancer General Exam - General Exam Comments Initial Comments: This is a well little pulmonary awake alert oriented 3 male Limitations: no limitations General appearance: alert, anxious Head exam: Present: atraumatic, normocephalic, normal inspection Eye exam: Present: normal appearance, PERRL, EOMI. Absent: scleral icterus, conjunctival injection, periorbital swelling ENT exam: Present: normal exam, mucous membranes moist Neck exam: Present: normal inspection. Absent: tenderness, meningismus, lymphadenopathy Respiratory exam: Present: normal lung sounds bilaterally. Absent: respiratory distress, wheezes, rales, rhonchi, stridor Cardiovascular Exam: Present: tachycardia, irregular rhythm. Absent: systolic murmur, diastolic murmur, rubs, gallop, clicks GI/Abdominal exam: Present: soft, normal bowel sounds. Absent: distended, te nderness, guarding, rebound, rigid Extremities exam: Present: normal inspection, full ROM, normal capillary refill. Absent: tenderness, pedal edema, joint swelling, calf tenderness Back exam: Present: normal inspection Neurological exam: Present: alert, oriented X3, CN II-XII intact Psychiatric exam: Present: normal affect, normal mood Skin exam: Present: warm, dry, intact, normal color. Absent: rash Course Vital Signs 01/28/20 01/28/20 01/28/20 09:28 09:42 09:59 Temperature 97.9 F Pulse Rate 150 H 144 H Pulse Rate [ 148 H Apical] Respiratory 18 18 Rate Blood Pressure 135/100 O2 Sat by Pulse 99 98 Oximetry 01/28/20 01/28/20 01/28/20 11:00 12:00 12:46 Temperature Pulse Rate 146 H 137 H 100 Pulse Rate [ Apical] Respiratory 18 18 18 Rate Blood Pressure 120/78 115/84 120/76 O2 Sat by Pulse 98 98 98 Oximetry - Reevaluation(s) Reevaluation #1: 01/28/20 13:37 I did require additional IV Cardizem for control. He did spontaneously go into a sinus rhythm. Repeat EKG showed a sinus rhythm a 96. Interval 184 QRS duration 90 QT since QTC 354/447 EKG Findings - EKG Results: EKG: interpreted by NICKD (Atrial fibrillation rate of 150 QRS 84 QT since QTC 292/[address] configuration) Medical Decision Making - Medical Decision Making Patient did present with a referral ablation with rapid ventricular response rate markedly elevated. He also had hypomagnesemia. Patient did resolve spontaneously emergency department after medication given. I did discuss the case with Dr. Chacon. Patient initially was to be placed on metoprolol but was found that he was on beta blockers are ready's dosing will be increased. He is follow-up with his doctor or Dr. Chacon and return when necessary he is aware this we did discuss different potential etiologies of A. fib. - Lab Data Result diagrams: 01/28/20 09:55 01/28/20 09:55 Lab Results 01/28/20 01/28/20 01/28/20 Range/Units 09:55 09:55 09:55 WBC 10.5 (3.8-10.6) k/uL RBC 4.94 (4.30-5.90) m/uL Hgb 14.0 (13.0-17.5) gm/dL Hct 42.2 (39.0-53.0) % MCV 85.3 (80.0-100.0) fL MCH 28.4 (25.0-35.0) pg MCHC 33.2 (31.0-37.0) g/dL RDW 13.3 (11.5-15.5) % Plt Count 312 (150-450) k/uL MPV 7.5 Neutrophils % 68 % Lymphocytes % 23 % Monocytes % 5 % Eosinophils % 3 % Basophils % 1 % Neutrophils # 7.2 (1.3-7.7) k/uL Lymphocytes # 2.4 (1.0-4.8) k/uL Monocytes # 0.5 (0-1.0) k/uL Eosinophils # 0.3 (0-0.7) k/uL Basophils # 0.1 (0-0.2) k/uL PT 9.7 (9.0-12.0) sec INR 0.9 (<1.2) APTT 22.5 (22.0-30.0) sec Sodium 134 L (137-145) mmol/L Potassium 4.7 (3.5-5.1) mmol/L Chloride 101 (98-107) mmol/L Carbon Dioxide 24 (22-30) mmol/L Anion Gap 9 mmol/L BUN 20 (9-20) mg/dL Creatinine 1.56 H (0.66-1.25) mg/dL Est GFR (CKD-EPI)AfAm 59 (>60 ml/min/1.73 sqM) Est GFR (CKD-EPI)NonAf 51 (>60 ml/min/1.73 sqM) Glucose 122 H (74-99) mg/dL Calcium 9.5 (8.4-10.2) mg/dL Magnesium 1.2 L (1.6-2.3) mg/dL Total Bilirubin 0.6 (0.2-1.3) mg/dL AST 25 (17-59) U/L ALT 18 (4-49) U/L Alkaline Phosphatase 36 L (38-126) U/L Creatine Kinase 95 (55-170) U/L Troponin I (0.000-0.034) ng/mL Total Protein 7.2 (6.3-8.2) g/dL Albumin 4.3 (3.5-5.0) g/dL TSH 2.380 (0.465-4.680) mIU/L 01/28/20 Range/Units 09:55 WBC (3.8-10.6) k/uL RBC (4.30-5.90) m/uL Hgb (13.0-17.5) gm/dL Hct (39.0-53.0) % MCV (80.0-100.0) fL MCH (25.0-35.0) pg MCHC (31.0-37.0) g/dL RDW (11.5-15.5) % Plt Count (150-450) k/uL MPV Neutrophils % % Lymphocytes % % Monocytes % % Eosinophils % % Basophils % % Neutrophils # (1.3-7.7) k/uL Lymphocytes # (1.0-4.8) k/uL Monocytes # (0-1.0) k/uL Eosinophils # (0-0.7) k/uL Basophils # (0-0.2) k/uL PT (9.0-12.0) sec INR (<1.2) APTT (22.0-30.0) sec Sodium (137-145) mmol/L Potassium (3.5-5.1) mmol/L Chloride (98-107) mmol/L Carbon Dioxide (22-30) mmol/L Anion Gap mmol/L BUN (9-20) mg/dL Creatinine (0.66-1.25) mg/dL Est GFR (CKD-EPI)AfAm (>60 ml/min/1.73 sqM) Est GFR (CKD-EPI)NonAf (>60 ml/min/1.73 sqM) Glucose (74-99) mg/dL Calcium (8.4-10.2) mg/dL Magnesium (1.6-2.3) mg/dL Total Bilirubin (0.2-1.3) mg/dL AST (17-59) U/L ALT (4-49) U/L Alkaline Phosphatase (38-126) U/L Creatine Kinase (55-170) U/L Troponin I 0.014 (0.000-0.034) ng/mL Total Protein (6.3-8.2) g/dL Albumin (3.5-5.0) g/dL TSH (0.465-4.680) mIU/L - Radiology Data Radiology results: report reviewed (Imaging reviewed no acute findings), image reviewed Critical Care Time Critical Care Time: Yes Total Critical Care Time: 31 Critical Care Time: Critical care time includes initial presentation with history physical labs x- rays multiple reevaluation patient responsive therapy discuss with the patient family regarding findings discussion with Dr. Chacon and documentation of the events. Disposition Clinical Impression: Rapid atrial fibrillation, Hypomagnesemia Disposition: HOME SELF-CARE Condition: Good Instructions (If sedation given, give patient instructions): Heart Palpitations (ED), A-fib (Atrial Fibrillation) (ED), Hypomagnesemia (ED) Additional Instructions: 81 mg of baby aspirin daily in addition to increasing your metoprolol dosing to 75 mg twice a day Prescriptions: Magnesium 200 mg PO DAILY #14 tablet Metoprolol Succinate [Toprol XL] 75 mg PO BID #60 tab Is patient prescribed a controlled substance at d/c from ED?: No Referrals: [facility] [Primary Care Provider] - 1-2 days
[2020-01-28 13:57] VITALS: BP 103/69; PULSE 96; TEMP 98
== END 2020-01-28 13:55 | disposition home or self-care (01) ==
LOC: EC 09:27
DX: I48.91 Unspecified atrial fibrillation (principal); E83.42 Hypomagnesemia; I10 Essential (primary) hypertension; G89.29 Other chronic pain; M54.9 Dorsalgia, unspecified; J44.9 Chronic obstructive pulmonary disease, unspecified; F17.200 Nicotine dependence, unspecified, uncomplicated; Z79.899 Other long term (current) drug therapy; Z79.84 Long term (current) use of oral hypoglycemic drugs; Z91.041 Radiographic dye allergy status; Z85.528 Personal history of other malignant neoplasm of kidney
CPT/HCPCS: 36415; 93005; 80053; 84443; 82550; 83735; 84484; 85025; 85610; 85730; 71046; 99285; 96365; 96366 ×3; 96375; 96376; 96367; J3475

== ENCOUNTER 2020-05-21 23:02 | Emergency (ER) | payer OTHER ==
[2020-05-21 23:13] VITALS: BP 148/90; PULSE 95; RESP 18; TEMP 98.3
--- NOTE | 2020-05-22 00:07 | ED ---
ENT HPI - General Chief complaint: Dental/Oral Stated complaint: Facial Pain/Swelling Time Seen by Provider: 05/21/20 23:57 Source: patient Mode of arrival: ambulatory Limitations: no limitations - History of Present Illness Initial comments: 49-year-old male presenting today for chief complaint of face swelling. Patient states he recently had 2 teeth pulled, 4 days ago. He states he is no pain at the site of those no swelling noted in the area of the teeth being pulled. Patient states he is no swelling below tongue but has noted today some swelling near the right pentecostalism he states it is nontender non-erythematous he denies eye pain or headaches he denies neck pain nausea vomiting or visual changes. Patient states that he has had since the tooth being pulled and the procedure some clicking and catching of the right side of the jaw. Patient has a chest pain shortness of breath. Patient states he is not sure if there is a complication from the surgery and came to the ER secondary to the slight temporal facial swelling her samina view system negative upon arrival patient appears well nontoxic in no acute distress patient is currently on amoxicillin (denies lip or tongue swelling) - Related Data Home Medications Medication Instructions Recorded Confirmed hydroCHLOROthiazide [Hydrodiuril] 12.5 mg PO QAM 11/27/16 01/28/20 Fenofibrate 160 mg PO HS 09/18/17 01/28/20 Hydrocodone/Acetaminophen [[place] 1 tab PO TID PRN 09/18/17 01/28/20 10-325] Metoprolol Succinate (ER) [Toprol 50 mg PO BID 09/18/17 01/28/20 XL] Albuterol Sulfate [Ventolin HFA] 2 puff INHALATION RT-QID PRN 10/12/19 01/28/20 Pantoprazole Sodium [Protonix] 40 mg PO QAM 10/12/19 01/28/20 lisinopriL [Zestril] 10 mg PO HS 10/12/19 01/28/20 Cholecalciferol (Vitamin D3) 125 mcg PO DAILY 01/28/20 01/28/20 [Vitamin D3] Linagliptin [Tradjenta] 5 mg PO BID 01/28/20 01/28/20 Loratadine 10 mg PO DAILY PRN 01/28/20 01/28/20 Tiotropium [place] [Spiriva] 1 cap INHALATION RT-HS 01/28/20 01/28/20 Previous Rx's Medication Instructions Recorded metFORMIN HCL [Glucophage] 1,000 mg PO BID-W/MEALS #120 tab 10/13/19 Magnesium 200 mg PO DAILY #14 tablet 01/28/20 Metoprolol Succinate [Toprol XL] 75 mg PO BID #60 tab 01/28/20 Allergies Allergy/AdvReac Type Severity Reaction Status Date / Time Iodinated Contrast Media AdvReac KIDNEY Verified 05/21/20 23:08 [Iodinated Contrast- Oral and IV Dye] Review of Systems ROS Statement: Those systems with pertinent positive or pertinent negative responses have been documented in the HPI. ROS Other: All systems not noted in ROS Statement are negative. Past Medical History Past Medical History: Cancer, COPD, Diabetes Mellitus, GI Bleed, Hypertension Additional Past Medical History / Comment(s): RENAL CELL CA, DUODENAL ULCER, HIATAL HERNIA, BORDERLINE PERSONALITY DISORDER, PANIC EPISODES, ANXIETY, OCD, chronic back pain, chronic bronchitis History of Any Multi-Drug Resistant Organisms: None Reported Past Surgical History: Cholecystectomy, Hernia Repair Additional Past Surgical History / Comment(s): duodenal ulcer surgery, left kidney removal Past Anesthesia/Blood Transfusion Reactions: No Reported Reaction Past Psychological History: Anxiety, Bipolar Smoking Status: Current every day smoker Past Alcohol Use History: None Reported Past Drug Use History: None Reported - Past Family History Father Family Medical History: Cancer Additional Family Medical History / Comment(s): lung cancer General Exam - General Exam Comments Initial Comments: General: The patient is awake and alert, in no distress, and does not appear acutely ill. Eye: Pupils are equal, round and reactive to light, extra-ocular movements are intact. No nystagmus. There is normal conjunctiva bilaterally. No signs of icterus. Ears, nose, mouth and throat: There are moist mucous membranes and no oral lesions. No mastoid redness no redness of the external auditory canals bilaterally tympanic membranes are within normal limits bilaterally there is scant amount of cerumen in the right tympanic membrane. Slight clicking with opening closing of the jaw however there is full range of motion with no difficulty. There is no fluctuance of the gumline there is no swelling below the tongue or of the angle of the mandible there is no lip or tongue swelling Neck: The neck is supple, there is no tenderness or JVD. Cardiovascular: There is a regular rate and rhythm. No murmur, rub or gallop is appreciated. Respiratory: Lungs are clear to auscultation, respirations are non-labored, breath sounds are equal. No wheezes, stridor, rales, or rhonchi. e.] Musculoskeletal: Normal ROM, no tenderness. Strength 5/5. Sensation intact. Pulses equal bilaterally 2+. Neurological: A&O x 3. CN II-XII intact, There are no obvious motor or sensory deficits. Coordination appears grossly intact. Speech is normal. Skin: Skin is warm and dry and no rashes or lesions are noted. Very mild swelling noted near the right pentecostalism. no crepitus, no pain. no redness Psychiatric: Cooperative, appropriate mood & affect, normal judgment. Limitations: no limitations Course Vital Signs 05/21/20 23:08 Temperature 98.3 F Pulse Rate 95 Respiratory 18 Rate Blood Pressure 148/90 O2 Sat by Pulse 99 Oximetry Medical Decision Making - Medical Decision Making No obvious sign of infection on examination no signs of oral abscesses. Patient does have some TMJ dysfunction. swelling of little clinical significant felt of right temporal region, there is no redness or pain. ear exam and eye WNL. patient has normal oral exam beside previously mentioned finding. There is no signs of overt ALLERGIC reaction such as swelling of the tongue lips, no wheezing abdominal pain or rashes. At this time Patient closely monitor his symptoms at home with a worsen or develops new symptoms she is to return to emergency department otherwise patient is to follow-up with primary care on Saturday he is agreeable to this care plan to discharge at this time Disposition Clinical Impression: Facial swelling Disposition: HOME SELF-CARE Condition: Good Additional Instructions: Please use medication as discussed. Please follow-up with family doctor in the next 2 days. Please return to emergency room if the symptoms increase or worsen or for any other concerns. Is patient prescribed a controlled substance at d/c from ED?: No Referrals: [facility] [Primary Care Provider] - 1-2 days Time of Disposition: 00:06
== END 2020-05-22 00:29 | disposition home or self-care (01) ==
LOC: EC 23:02
DX: R22.0 Localized swelling, mass and lump, head (principal); E11.9 Type 2 diabetes mellitus without complications; I10 Essential (primary) hypertension; F41.9 Anxiety disorder, unspecified; F17.200 Nicotine dependence, unspecified, uncomplicated; Z79.84 Long term (current) use of oral hypoglycemic drugs
CPT/HCPCS: 99283

== ENCOUNTER 2020-08-02 12:41 | Emergency (ER) | payer OTHER ==
[2020-08-02] MEDS ORDERED: ADENOSINE 3 MG/ML 2 ML VIAL IVP STA (13:19)
--- NOTE | 2020-08-02 13:21 | ED ---
General Adult HPI - General Chief complaint: Arrhythmia/Palpitations Stated complaint: Fast Heart Rate Time Seen by Provider: 08/02/20 12:54 Source: patient, RN notes reviewed, old records reviewed Mode of arrival: ambulatory Limitations: no limitations - History of Present Illness Initial comments: 49-year-old male presents for evaluation of palpitation. Patient had similar episode several months ago was told he had atrial fibrillation. He is currently on aspirin and Toprol. No anticoagulation. He has a history of hypertension diabetes as well. He denies central chest pain. Palpitations began approximately one hour prior to arrival. He had taken his morning medications. He states he had eaten breakfast but had not eaten lunch yet. No vomiting or diarrhea. No fever or chills. No other complaints. - Related Data Home Medications Medication Instructions Recorded Confirmed hydroCHLOROthiazide [Hydrodiuril] 12.5 mg PO DAILY 11/27/16 08/02/20 Fenofibrate 160 mg PO HS 09/18/17 08/02/20 Hydrocodone/Acetaminophen [[place] 1 tab PO TID PRN 09/18/17 08/02/20 10-325] Metoprolol Succinate (ER) [Toprol 75 mg PO BID 09/18/17 08/02/20 XL] Pantoprazole Sodium [Protonix] 40 mg PO DAILY 10/12/19 08/02/20 lisinopriL [Zestril] 10 mg PO HS 10/12/19 08/02/20 Cholecalciferol (Vitamin D3) 125 mcg PO DAILY 01/28/20 08/02/20 [Vitamin D3] Linagliptin [Tradjenta] 5 mg PO BID 01/28/20 08/02/20 Tiotropium [place] [Spiriva] 1 cap INHALATION RT-HS 01/28/20 08/02/20 Albuterol Sulfate [Proair Hfa] 1 - 2 puff INHALATION RT-Q6H PRN 08/02/20 08/02/20 Aspirin EC [Ecotrin Low Dose] 81 mg PO DAILY 08/02/20 08/02/20 metFORMIN HCL 1,000 mg PO BID 08/02/20 08/02/20 methocarbamoL [Robaxin] 500 mg PO BID PRN 08/02/20 08/02/20 Previous Rx's Medication Instructions Recorded Magnesium 200 mg PO DAILY #14 tablet 01/28/20 Allergies Allergy/AdvReac Type Severity Reaction Status Date / Time Iodinated Contrast Media AdvReac KIDNEY Verified 08/02/20 14:07 [Iodinated Contrast- Oral and IV Dye] Review of Systems ROS Statement: Those systems with pertinent positive or pertinent negative responses have been documented in the HPI. ROS Other: All systems not noted in ROS Statement are negative. Past Medical History Past Medical History: Atrial Fibrillation, Cancer, COPD, Diabetes Mellitus, GI Bleed, Hypertension Additional Past Medical History / Comment(s): RENAL CELL CA, DUODENAL ULCER, HIATAL HERNIA, BORDERLINE PERSONALITY DISORDER, PANIC EPISODES, ANXIETY, OCD, chronic back pain, chronic bronchitis History of Any Multi-Drug Resistant Organisms: None Reported Past Surgical History: Cholecystectomy, Hernia Repair Additional Past Surgical History / Comment(s): duodenal ulcer surgery, left kid alfa removal Past Anesthesia/Blood Transfusion Reactions: No Reported Reaction Past Psychological History: Anxiety, Bipolar Smoking Status: Current every day smoker Past Alcohol Use History: None Reported Past Drug Use History: None Reported - Past Family History Father Family Medical History: Cancer Additional Family Medical History / Comment(s): lung cancer General Exam Limitations: no limitations General appearance: alert, in no apparent distress Head exam: Present: atraumatic, normocephalic Eye exam: Present: normal appearance, PERRL ENT exam: Present: normal exam Neck exam: Present: normal inspection. Absent: tenderness, meningismus Respiratory exam: Present: normal lung sounds bilaterally. Absent: respiratory distress, wheezes Cardiovascular Exam: Present: normal rhythm, tachycardia GI/Abdominal exam: Present: soft. Absent: distended, tenderness, guarding, rebound Extremities exam: Present: normal inspection, normal capillary refill. Absent: pedal edema Neurological exam: Present: alert, oriented X3, CN II-XII intact. Absent: motor sensory deficit Psychiatric exam: Present: normal affect, normal mood Skin exam: Present: warm, dry, intact. Absent: cyanosis, diaphoretic Course Vital Signs 08/02/20 08/02/20 08/02/20 12:47 13:28 13:30 Temperature 98.1 F Pulse Rate 145 H 92 89 Respiratory 18 18 16 Rate Blood Pressure 157/90 140/89 140/89 O2 Sat by Pulse 98 97 Oximetry 08/02/20 14:00 Temperature Pulse Rate 89 Respiratory 16 Rate Blood Pressure 140/89 O2 Sat by Pulse 98 Oximetry EKG Findings - EKG Comments: EKG Findings:: EKG: No complex tachycardia, rate of 135, QRS duration 90, QTC [address] segment elevation, do not see any P waves, suspect supraventricular tachycardia. Repeat EKG at 1326, normal sinus rhythm, no ST segment elevation, rate 93, IA interval 192, QRS duration 92, QTC 427. Medical Decision Making - Medical Decision Making 49-year-old male with presented with palpitation, found to be in SVT, Valsalva maneuvers did not convert this patient, he was given 6 mg of adenosine and converted to sinus rhythm. I did obtain laboratory testing which showed a mild leukocytosis of uncertain etiology, mild elevations or creatinine 1.67 magnesium 1.4. He's given IV fluids and IV magnesium. I did plan to observe this patient overnight for hydration and telemetry. He declines and wishes to be discharged home. He will increase his magnesium supplementation and his fluid intake at home. He will follow-up with cardiology. - Lab Data Result diagrams: 08/02/20 15:17 08/02/20 15:02 Lab Results 08/02/20 08/02/20 08/02/20 Range/Units 15:02 15:02 15:17 WBC 14.3 H (3.8-10.6) k/uL RBC 4.76 (4.30-5.90) m/uL Hgb 13.6 (13.0-17.5) gm/dL Hct 41.7 (39.0-53.0) % MCV 87.5 (80.0-100.0) fL MCH 28.5 (25.0-35.0) pg MCHC 32.6 (31.0-37.0) g/dL RDW 13.9 (11.5-15.5) % Plt Count 515 H (150-450) k/uL MPV 6.7 Neutrophils % 68 % Lymphocytes % 24 % Monocytes % 4 % Eosinophils % 1 % Basophils % 1 % Neutrophils # 9.8 H (1.3-7.7) k/uL Lymphocytes # 3.5 (1.0-4.8) k/uL Monocytes # 0.6 (0-1.0) k/uL Eosinophils # 0.2 (0-0.7) k/uL Basophils # 0.1 (0-0.2) k/uL PT 9.8 (9.0-12.0) sec INR 0.9 (<1.2) APTT 18.2 L (22.0-30.0) sec Sodium 136 L (137-145) mmol/L Potassium 4.9 (3.5-5.1) mmol/L Chloride 103 (98-107) mmol/L Carbon Dioxide 27 (22-30) mmol/L Anion Gap 6 mmol/L BUN 21 H (9-20) mg/dL Creatinine 1.67 H (0.66-1.25) mg/dL Est GFR (CKD-EPI)AfAm 55 (>60 ml/min/1.73 sqM) Est GFR (CKD-EPI)NonAf 47 (>60 ml/min/1.73 sqM) Glucose 88 (74-99) mg/dL Calcium 9.3 (8.4-10.2) mg/dL Magnesium 1.4 L (1.6-2.3) mg/dL Total Bilirubin 0.3 (0.2-1.3) mg/dL AST 28 (17-59) U/L ALT 15 (4-49) U/L Alkaline Phosphatase 25 L (38-126) U/L Troponin I (0.000-0.034) ng/mL Total Protein 6.4 (6.3-8.2) g/dL Albumin 4.0 (3.5-5.0) g/dL 08/02/20 Range/Units 15:17 WBC (3.8-10.6) k/uL RBC (4.30-5.90) m/uL Hgb (13.0-17.5) gm/dL Hct (39.0-53.0) % MCV (80.0-100.0) fL MCH (25.0-35.0) pg MCHC (31.0-37.0) g/dL RDW (11.5-15.5) % Plt Count (150-450) k/uL MPV Neutrophils % % Lymphocytes % % Monocytes % % Eosinophils % % Basophils % % Neutrophils # (1.3-7.7) k/uL Lymphocytes # (1.0-4.8) k/uL Monocytes # (0-1.0) k/uL Eosinophils # (0-0.7) k/uL Basophils # (0-0.2) k/uL PT (9.0-12.0) sec INR (<1.2) APTT (22.0-30.0) sec Sodium (137-145) mmol/L Potassium (3.5-5.1) mmol/L Chloride (98-107) mmol/L Carbon Dioxide (22-30) mmol/L Anion Gap mmol/L BUN (9-20) mg/dL Creatinine (0.66-1.25) mg/dL Est GFR (CKD-EPI)AfAm (>60 ml/min/1.73 sqM) Est GFR (CKD-EPI)NonAf (>60 ml/min/1.73 sqM) Glucose (74-99) mg/dL Calcium (8.4-10.2) mg/dL Magnesium (1.6-2.3) mg/dL Total Bilirubin (0.2-1.3) mg/dL AST (17-59) U/L ALT (4-49) U/L Alkaline Phosphatase (38-126) U/L Troponin I 0.016 (0.000-0.034) ng/mL Total Protein (6.3-8.2) g/dL Albumin (3.5-5.0) g/dL Disposition Clinical Impression: Supraventricular tachycardia, Hypomagnesemia Disposition: HOME SELF-CARE Condition: Fair Instructions (If sedation given, give patient instructions): Supraventricular Tachycardia (ED) Is patient prescribed a controlled substance at d/c from ED?: No [facility] - [facility]-2 days Basim Hylton MD [STAFF PHYSICIAN] - 1-2 days Time of Disposition: 16:26
[2020-08-02 14:11] VITALS: RESP 16
--- NOTE | 2020-08-02 14:41 | XR ---
EXAMINATION TYPE: XR chest 1V portable DATE OF EXAM: 08/02/2020 COMPARISON: 01/28/2020 HISTORY: tachycardia TECHNIQUE: Single frontal view of the chest is obtained. FINDINGS: There is no focal air space opacity, pleural effusion, or pneumothorax seen. The cardiac silhouette size is within normal limits. IMPRESSION: No acute process.
[2020-08-02 15:28] LABS: INR 0.9 (<1.2); Prothrombin Time 9.8 sec (9.0-12.0)
[2020-08-02 15:30] LABS: Partial Thromboplastin Time 18.2 sec (22.0-30.0)
[2020-08-02 15:32] LABS: Basophils # (A) 0.1 k/uL (0-0.2); Basophils % (A) 1 %; Eosinophils # (A) 0.2 k/uL (0-0.7); Eosinophils % (A) 1 %; HCT 41.7 % (39.0-53.0); HGB 13.6 gm/dL (13.0-17.5); Lymphocytes # (A) 3.5 k/uL (1.0-4.8); Lymphocytes % (A) 24 %; MCH 28.5 pg (25.0-35.0); MCHC 32.6 g/dL (31.0-37.0); MCV 87.5 fL (80.0-100.0); Mean Platelet Volume 6.7; Monocytes # (A) 0.6 k/uL (0-1.0); Monocytes % (A) 4 %; Neutrophils # (A) 9.8 k/uL (1.3-7.7); Neutrophils % (A) 68 %; Platelet Count 515 k/uL (150-450); RBC 4.76 m/uL (4.30-5.90); RDW 13.9 % (11.5-15.5); WBC 14.3 k/uL (3.8-10.6)
[2020-08-02 15:39] LABS: Calcium 9.3 mg/dL (8.4-10.2); Magnesium 1.4 mg/dL (1.6-2.3); Total Bilirubin 0.3 mg/dL (0.2-1.3); Total Protein 6.4 g/dL (6.3-8.2)
[2020-08-02 15:47] LABS: Potassium 4.9 mmol/L (3.5-5.1)
[2020-08-02] MEDS ORDERED: MAGNESIUM SULFATE-D5W PMX 1 GM in DEXTROSE/WATER 1 100ML.BAG IVPB ONE (16:04)
[2020-08-02] MEDS ORDERED: SODIUM CHLORIDE 0.9% 1,000 ML IV SCH (16:15)
[2020-08-02 16:44] VITALS: PULSE 84
[2020-08-02 17:37] VITALS: BP 140/74; TEMP 98
== END 2020-08-02 17:34 | disposition home or self-care (01) ==
LOC: EC 12:41
DX: I47.1 Supraventricular tachycardia (principal); E83.42 Hypomagnesemia; E11.9 Type 2 diabetes mellitus without complications; I10 Essential (primary) hypertension; J44.9 Chronic obstructive pulmonary disease, unspecified; I48.91 Unspecified atrial fibrillation; F60.3 Borderline personality disorder; F42.9 Obsessive-compulsive disorder, unspecified; F31.9 Bipolar disorder, unspecified; F41.9 Anxiety disorder, unspecified; F17.200 Nicotine dependence, unspecified, uncomplicated; Z85.528 Personal history of other malignant neoplasm of kidney; Z79.82 Long term (current) use of aspirin; Z79.84 Long term (current) use of oral hypoglycemic drugs; Z79.51 Long term (current) use of inhaled steroids; Z79.899 Other long term (current) drug therapy
CPT/HCPCS: 36415; 93005; 80053; 83735; 84484; 85025; 85610; 85730; 71045; 99285; 96365; 96375; J0153; J3475

== ENCOUNTER 2020-08-15 21:27 | Observation (INO) | payer OTHER ==
[2020-08-15] MEDS ORDERED: MAG HYDROX/AL HYDROX/SIMETH 30 ML, HYOSCYAMINE ELIXIR 10 ML, LIDOCAINE VISCOUS 2% 10 ML PO STA ×3 (22:56)
[2020-08-15 23:15] LABS: Basophils # (A) 0.1 k/uL (0-0.2); Basophils % (A) 1 %; Eosinophils # (A) 0.1 k/uL (0-0.7); Eosinophils % (A) 1 %; HCT 40.8 % (39.0-53.0); HGB 13.7 gm/dL (13.0-17.5); Lymphocytes # (A) 3.1 k/uL (1.0-4.8); Lymphocytes % (A) 23 %; MCH 28.8 pg (25.0-35.0); MCHC 33.7 g/dL (31.0-37.0); MCV 85.4 fL (80.0-100.0); Mean Platelet Volume 6.6; Monocytes # (A) 0.8 k/uL (0-1.0); Monocytes % (A) 6 %; Neutrophils # (A) 9.1 k/uL (1.3-7.7); Neutrophils % (A) 67 %; Platelet Count 509 k/uL (150-450); RBC 4.78 m/uL (4.30-5.90); RDW 13.6 % (11.5-15.5); WBC 13.5 k/uL (3.8-10.6)
[2020-08-15 23:31] LABS: Albumin 4.5 g/dL (3.5-5.0); Calcium 10.3 mg/dL (8.4-10.2); Potassium 4.6 mmol/L (3.5-5.1); Total Bilirubin 0.2 mg/dL (0.2-1.3); Total Protein 7.2 g/dL (6.3-8.2)
--- NOTE | 2020-08-15 23:42 | XR ---
EXAMINATION TYPE: XR KUB DATE OF EXAM: 08/15/2020 COMPARISON: 11/27/2016 HISTORY: Abdominal pain TECHNIQUE: 2 views upright FINDINGS: There is no sign of intestinal obstruction or pneumoperitoneum. Fecal pattern is normal. Th ere are numerous surgical clips in the abdomen. Lung bases are clear. There are no pathologic calcifi cations over the kidneys. IMPRESSION: Previous abdominal surgery. Nonacute abdomen. No change.
[2020-08-16] MEDS ORDERED: HYDROcodone/APAP 5-325MG 1 EACH TAB PO STA (00:47)
[2020-08-16 00:52] LABS: Appearance,Urine Clear (Clear); Bilirubin,Urine Negative (Negative); Blood,Urine Small (Negative); Color,Urine Yellow; Glucose,Urine (UA) Negative (Negative); Ketones,Urine Negative (Negative); Leukocyte Esterase,Urine Negative (Negative); Mucus,Urine Rare /hpf; Nitrite,Urine Negative (Negative); Protein,Urine 3+ (Negative); RBC,Urine 1 /hpf (0-5); Specific Gravity,Urine 1.019 (1.001-1.035); Urobilinogen,Urine <2.0 mg/dL (<2.0); WBC,Urine 1 /hpf (0-5)
--- NOTE | 2020-08-16 01:00 | ED ---
Abdominal Pain HPI - General Chief Complaint: Abdominal Pain Stated Complaint: Abd pain Time Seen by Provider: 08/15/20 22:39 Source: patient Mode of arrival: ambulatory Limitations: no limitations - History of Present Illness Initial Comments: This patient is a 49-year-old man presenting with complaint of epigastric pain. Patient states the pain has been going on for a while though it is been getting worse since Saturday. He describes it as stabbing and cramping in character, lasting 5-10 minutes and recurring. He has had it previously and when he is given GI cocktail states that it seems to improve things. MD Complaint: abdominal pain -: days(s) Location: epigastric Radiation: none Migration to: no migration Severity: severe Quality: cramping, stabbing Consistency: intermittent Improves With: nothing Worsens With: nothing - Related Data Home Medications Medication Instructions Recorded Confirmed hydroCHLOROthiazide [Hydrodiuril] 12.5 mg PO DAILY 11/27/16 08/16/20 Fenofibrate 160 mg PO HS 09/18/17 08/16/20 Hydrocodone/Acetaminophen [[place] 1 tab PO TID PRN 09/18/17 08/16/20 10-325] Pantoprazole Sodium [Protonix] 40 mg PO DAILY 10/12/19 08/16/20 lisinopriL [Zestril] 10 mg PO HS 10/12/19 08/16/20 Cholecalciferol (Vitamin D3) 125 mcg PO DAILY 01/28/20 08/16/20 [Vitamin D3 (5000 Iu)] Linagliptin [Tradjenta] 5 mg PO DAILY 01/28/20 08/16/20 Tiotropium [place] [Spiriva] 1 cap INHALATION RT-HS 01/28/20 08/16/20 Albuterol Sulfate [Proair Hfa] 1 - 2 puff INHALATION RT-Q6H PRN 08/02/20 08/16/20 Aspirin EC [Ecotrin Low Dose] 81 mg PO DAILY 08/02/20 08/16/20 metFORMIN HCL 1,000 mg PO BID 08/02/20 08/16/20 Fluticasone Propionate [Flovent 1 puff INHALATION RT-DAILY 08/16/20 08/16/20 Hfa 220 mcg] Magnesium Oxide [Mag-Ox] 400 mg PO DAILY 06/29/21 06/29/21 Metoprolol Succinate [Toprol XL] 100 mg PO BID 08/16/20 08/16/20 Allergies Allergy/AdvReac Type Severity Reaction Status Date / Time Iodinated Contrast Media AdvReac KIDNEY Verified 08/16/20 07:17 [Iodinated Contrast- Oral and IV Dye] Review of Systems ROS Statement: Those systems with pertinent positive or pertinent negative responses have been documented in the HPI. ROS Other: All systems not noted in ROS Statement are negative. Constitutional: Denies: fever, chills, weakness Respiratory: Denies: cough, dyspnea Cardiovascular: Denies: chest pain, palpitations, orthopnea, edema Gastrointestinal: Reports: as per HPI, abdominal pain. Denies: nausea, vomiting, diarrhea, constipation, melena, hematochezia Genitourinary: Denies: dysuria, hematuria, testicular pain, testicular mass Musculoskeletal: Denies: back pain Skin: Denies: rash Neurological: Denies: headache, weakness, numbness Past Medical History Past Medical History: Atrial Fibrillation, Cancer, COPD, Diabetes Mellitus, GI Bleed, Hypertension Additional Past Medical History / Comment(s): RENAL CELL CA, DUODENAL ULCER, HIATAL HERNIA, BORDERLINE PERSONALITY DISORDER, PANIC EPISODES, ANXIETY, OCD, chronic back pain, chronic bronchitis History of Any Multi-Drug Resistant Organisms: None Reported Past Surgical History: Cholecystectomy, Hernia Repair Additional Past Surgical History / Comment(s): duodenal ulcer surgery, left kidn ey removal Past Anesthesia/Blood Transfusion Reactions: No Reported Reaction Past Psychological History: Anxiety, Bipolar Smoking Status: Current every day smoker Past Alcohol Use History: None Reported Past Drug Use History: None Reported - Past Family History Father Family Medical History: Cancer Additional Family Medical History / Comment(s): lung cancer General Exam Limitations: no limitations General appearance: alert, in no apparent distress Head exam: Present: atraumatic, normocephalic Eye exam: Present: normal appearance. Absent: scleral icterus, conjunctival injection Neck exam: Present: normal inspection Respiratory exam: Present: normal lung sounds bilaterally. Absent: respiratory distress, wheezes, rales, rhonchi, stridor Cardiovascular Exam: Present: regular rate, normal rhythm, normal heart sounds. Absent: systolic murmur, diastolic murmur, rubs, gallop GI/Abdominal exam: Present: soft, tenderness, normal bowel sounds. Absent: distended, guarding, rebound, rigid, mass, pulsatile mass, hernia Extremities exam: Present: normal inspection, normal capillary refill. Absent: pedal edema, calf tenderness Back exam: Present: normal inspection. Absent: CVA tenderness (R), CVA tenderness (L) Neurological exam: Present: alert Skin exam: Present: warm, dry, intact, normal color. Absent: rash Course Vital Signs 08/15/20 08/16/20 08/16/20 22:09 01:11 02:53 Temperature 97.9 F Pulse Rate 71 74 75 Respiratory 16 18 18 Rate Blood Pressure 154/96 137/77 135/83 O2 Sat by Pulse 98 96 Oximetry 08/16/20 08/16/20 08/16/20 03:53 08:54 11:00 Temperature 97.9 F 97.8 F Pulse Rate 72 73 77 Respiratory 18 18 18 Rate Blood Pressure 132/82 137/84 132/80 O2 Sat by Pulse 96 97 98 Oximetry 08/16/20 08/16/20 16:00 18:29 Temperature 97.2 F L 97.9 F Pulse Rate 81 73 Respiratory 18 18 Rate Blood Pressure 116/78 137/85 O2 Sat by Pulse 97 99 Oximetry Medical Decision Making - Medical Decision Making Patient's 49-year-old man with previous abdominal surgeries presenting with upper abdominal pain. The workup is concerning for partial small bowel obstruction. Patient declined to have NG tube here. Patient be admitted with consult for Dr. Fernandez. - Lab Data Result diagrams: 08/17/20 08:28 08/17/20 08:28 Lab Results 08/15/20 08/15/20 08/15/20 Range/Units 22:50 22:50 22:50 WBC 13.5 H (3.8-10.6) k/uL RBC 4.78 (4.30-5.90) m/uL Hgb 13.7 (13.0-17.5) gm/dL Hct 40.8 (39.0-53.0) % MCV 85.4 (80.0-100.0) fL MCH 28.8 (25.0-35.0) pg MCHC 33.7 (31.0-37.0) g/dL RDW 13.6 (11.5-15.5) % Plt Count 509 H (150-450) k/uL MPV 6.6 Neutrophils % 67 % Lymphocytes % 23 % Monocytes % 6 % Eosinophils % 1 % Basophils % 1 % Neutrophils # 9.1 H (1.3-7.7) k/uL Lymphocytes # 3.1 (1.0-4.8) k/uL Monocytes # 0.8 (0-1.0) k/uL Eosinophils # 0.1 (0-0.7) k/uL Basophils # 0.1 (0-0.2) k/uL Sodium 136 L (137-145) mmol/L Potassium 4.6 (3.5-5.1) mmol/L Chloride 101 (98-107) mmol/L Carbon Dioxide 26 (22-30) mmol/L Anion Gap 9 mmol/L BUN 21 H (9-20) mg/dL Creatinine 1.67 H (0.66-1.25) mg/dL Est GFR (CKD-EPI)AfAm 55 (>60 ml/min/1.73 sqM) Est GFR (CKD-EPI)NonAf 47 (>60 ml/min/1.73 sqM) Glucose 122 H (74-99) mg/dL POC Glucose (mg/dL) (75-99) mg/dL POC Glu Reconcilement Clerk ID Plasma Lactic Acid [place] (0.7-2.0) mmol/L Calcium 10.3 H (8.4-10.2) mg/dL Total Bilirubin 0.2 (0.2-1.3) mg/dL AST 22 (17-59) U/L ALT 18 (4-49) U/L Alkaline Phosphatase 36 L (38-126) U/L Troponin I (0.000-0.034) ng/mL C-Reactive Protein 1.0 H (<1.0) mg/dL Total Protein 7.2 (6.3-8.2) g/dL Albumin 4.5 (3.5-5.0) g/dL Amylase 48 (30-110) U/L Lipase 193 (23-300) U/L Urine Color Yellow Urine Appearance Clear (Clear) Urine pH 6.0 (5.0-8.0) Ur Specific [place] 1.019 (1.001-1.035) Urine Protein 3+ H (Negative) Urine Glucose (UA) Negative (Negative) Urine Ketones Negative (Negative) Urine Blood Small H (Negative) Urine Nitrite Negative (Negative) Urine Bilirubin Negative (Negative) Urine Urobilinogen <2.0 (<2.0) mg/dL Ur Leukocyte Esterase Negative (Negative) Urine RBC 1 (0-5) /hpf Urine WBC 1 (0-5) /hpf Urine Mucus Rare H (None) /hpf Coronavirus (PCR) (Not Detectd) 08/15/20 08/16/20 08/16/20 Range/Units 22:50 01:12 04:02 WBC (3.8-10.6) k/uL RBC (4.30-5.90) m/uL Hgb (13.0-17.5) gm/dL Hct (39.0-53.0) % MCV (80.0-100.0) fL MCH (25.0-35.0) pg MCHC (31.0-37.0) g/dL RDW (11.5-15.5) % Plt Count (150-450) k/uL MPV Neutrophils % % Lymphocytes % % Monocytes % % Eosinophils % % Basophils % % Neutrophils # (1.3-7.7) k/uL Lymphocytes # (1.0-4.8) k/uL Monocytes # (0-1.0) k/uL Eosinophils # (0-0.7) k/uL Basophils # (0-0.2) k/uL Sodium (137-145) mmol/L Potassium (3.5-5.1) mmol/L Chloride (98-107) mmol/L Carbon Dioxide (22-30) mmol/L Anion Gap mmol/L BUN (9-20) mg/dL Creatinine (0.66-1.25) mg/dL Est GFR (CKD-EPI)AfAm (>60 ml/min/1.73 sqM) Est GFR (CKD-EPI)NonAf (>60 ml/min/1.73 sqM) Glucose (74-99) mg/dL POC Glucose (mg/dL) (75-99) mg/dL POC Glu Reconcilement Clerk ID Plasma Lactic Acid [place] 1.9 (0.7-2.0) mmol/L Calcium (8.4-10.2) mg/dL Total Bilirubin (0.2-1.3) mg/dL AST (17-59) U/L ALT (4-49) U/L Alkaline Phosphatase (38-126) U/L Troponin I 0.017 (0.000-0.034) ng/mL C-Reactive Protein (<1.0) mg/dL Total Protein (6.3-8.2) g/dL Albumin (3.5-5.0) g/dL Amylase (30-110) U/L Lipase (23-300) U/L Urine Color Urine Appearance (Clear) Urine pH (5.0-8.0) Ur Specific [place] (1.001-1.035) Urine Protein (Negative) Urine Glucose (UA) (Negative) Urine Ketones (Negative) Urine Blood (Negative) Urine Nitrite (Negative) Urine Bilirubin (Negative) Urine Urobilinogen (<2.0) mg/dL Ur Leukocyte Esterase (Negative) Urine RBC (0-5) /hpf Urine WBC (0-5) /hpf Urine Mucus (None) /hpf Coronavirus (PCR) Not Detected (Not Detectd) 08/16/20 08/16/20 08/16/20 Range/Units 04:13 06:51 11:01 WBC (3.8-10.6) k/uL RBC (4.30-5.90) m/uL Hgb (13.0-17.5) gm/dL Hct (39.0-53.0) % MCV (80.0-100.0) fL MCH (25.0-35.0) pg MCHC (31.0-37.0) g/dL RDW (11.5-15.5) % Plt Count (150-450) k/uL MPV Neutrophils % % Lymphocytes % % Monocytes % % Eosinophils % % Basophils % % Neutrophils # (1.3-7.7) k/uL Lymphocytes # (1.0-4.8) k/uL Monocytes # (0-1.0) k/uL Eosinophils # (0-0.7) k/uL Basophils # (0-0.2) k/uL Sodium (137-145) mmol/L Potassium (3.5-5.1) mmol/L Chloride (98-107) mmol/L Carbon Dioxide (22-30) mmol/L Anion Gap mmol/L BUN (9-20) mg/dL Creatinine (0.66-1.25) mg/dL Est GFR (CKD-EPI)AfAm (>60 ml/min/1.73 sqM) Est GFR (CKD-EPI)NonAf (>60 ml/min/1.73 sqM) Glucose (74-99) mg/dL POC Glucose (mg/dL) 94 (75-99) mg/dL POC Glu Reconcilement Clerk ID Madhuri [place] Plasma Lactic Acid [place] (0.7-2.0) mmol/L Calcium (8.4-10.2) mg/dL Total Bilirubin (0.2-1.3) mg/dL AST (17-59) U/L ALT (4-49) U/L Alkaline Phosphatase (38-126) U/L Troponin I 0.016 0.020 (0.000-0.034) ng/mL C-Reactive Protein (<1.0) mg/dL Total Protein (6.3-8.2) g/dL Albumin (3.5-5.0) g/dL Amylase (30-110) U/L Lipase (23-300) U/L Urine Color Urine Appearance (Clear) Urine pH (5.0-8.0) Ur Specific [place] (1.001-1.035) Urine Protein (Negative) Urine Glucose (UA) (Negative) Urine Ketones (Negative) Urine Blood (Negative) Urine Nitrite (Negative) Urine Bilirubin (Negative) Urine Urobilinogen (<2.0) mg/dL Ur Leukocyte Esterase (Negative) Urine RBC (0-5) /hpf Urine WBC (0-5) /hpf Urine Mucus (None) /hpf Coronavirus (PCR) (Not Detectd) - EKG Data -: EKG Interpreted by Sc EKG shows normal: sinus rhythm, axis (Normal), intervals (Normal), QRS complexes (Normal), ST-T waves (Normal) Rate: normal (Rate 75 bpm) Interpretation: normal EKG Disposition Clinical Impression: Abdominal pain, Partial small bowel obstruction Disposition: ADMITTED IP TO THIS [facility] Condition: Good
--- NOTE | 2020-08-16 02:23 | CT ---
EXAMINATION TYPE: CT abdomen pelvis wo con DATE OF EXAM: 08/16/2020 COMPARISON: July 21, 2015 HISTORY: epigastric Abdominal pain CT DLP: 1286.4 mGycm Automated exposure control for dose reduction was used. The lung bases are clear. There is no pleural effusion. Heart size is normal. There is no pericardial effusion. Liver spleen stomach pancreas appear intact. The bile ducts are not dilated. There are cli ps from cholecystectomy. There is previous gastric surgery. There is no adrenal mass. There are clips from left nephrectomy. The right kidney shows normal size a nd contour. There is no hydronephrosis. There is no retroperitoneal adenopathy. The bladder distends smoothly. There is no inguinal hernia. There is no free fluid in the pelvis. There is no evidence of a pelvic mass. Appendix appears normal. There is no mesenteric edema. There is no ascites or free air. There are zackery e dilated small bowel loops in the mid abdomen with fluid levels. Small bowel measures up to 3.8 cm. Distal small bowel is not dilated. I see no transition point. The lumbar vertebra have normal alignment. There is mild narrowing at L4-5 disc. There is no compress ion fracture. The bony pelvis is intact. The hip joints are intact. There is no hip dysplasia. IMPRESSION: There are some dilated small bowel loops in the upper and mid abdomen. This is also present on old ex am. A chronic partial obstruction or chronic ileus is suspected. Exam limited by lack of any contrast .
[2020-08-16] MEDS ORDERED: NALOXONE 0.4 MG/ML 1 ML VIAL IV PRN (02:56)
[2020-08-16] MEDS ORDERED: ONDANSETRON 4 MG/2 ML VIAL IVP PRN (02:56)
[2020-08-16] MEDS ORDERED: MORPHINE SULFATE 4 MG/ML SYRINGE IV PRN (02:56)
[2020-08-16] MEDS: SODIUM CHLORIDE 0.9% 1,000 ML IV SCH ×2 (03:57→19:01)
[2020-08-16] MEDS: PANTOPRAZOLE 40 MG/10 ML VIAL IV SCH (08:50)
[2020-08-16] MEDS ORDERED: ALBUTEROL NEBULIZED 2.5 MG/3 ML INHALATION PRN (09:48)
--- NOTE | 2020-08-16 10:21 | P.HPIM ---
History of Present Illness H&P Date: 08/16/20 Chief Complaint: Epigastric pain HISTORY OF PRESENT ILLNESS This is a 49-year-old male patient of [facility] with past medical history of hypertension, SVT, COPD, chronic back pain, renal cell carcinoma status post nephrectomy, obsessive-compulsive disorder and bipolar disorder currently on disability, history of duodenal ulcer and hiatal hernia. He has history of open cholecystectomy, duodenal ulcer with repair in 2003, left-sided nephrectomy. Patient complains of abdominal pain that started on August 08 but significant pain started 3 days ago in the epigastric area. He states he has to be careful what he eats and drinks. He denies having any nausea or vomiting. He denies any diarrhea. He states he has more frequent increased pain with cramps. He is having normal bowel movements. Patient presented to [facility] emergency center for evaluation. He was found to be afebrile, heart rate 71, blood pressure 154/96, pulse ox 98% on room air. WBC 13.5, hemoglobin 13.7, platelet count 509. Sodium 136, potassium 4.6, chloride 101, CO2 26, BUN 21 creatinine 1.67. Glucose 122. Calcium 10.3, total bilirubin 0.2, AST 22, ALT 18, alkaline phosphatase 36. C-reactive protein 1. Lipase 193. Albumin 4.5. Urinalysis clear with nitrate and leukoesterase negative. Small amount of blood. Lactic acid 1.9. Troponin 0.017, 0.016, 0.020. Coronavirus PCR not detected. EKG sinus rhythm with no acute ST changes. Chest x-ray reveals no acute process KUB reveals no acute abdomen. CAT scan of the abdomen and pelvis without contrast revealed dilated small bowel loops in the upper and mid abdomen. This is present on old exam. A chronic par tial obstruction or chronic ileus suspected. There was concern for small bowel obstruction, patient did declined NG tube. Patient placed on observation status and consult with Dr. Fernandez. General surgery has ordered CAT scan of the abdomen and pelvis with oral contrast, nothing by mouth status. Patient is seen today in the emergency center. REVIEW OF SYSTEMS Constitutional: No fever, no chills, no night sweats. No weight change. No weakness, fatigue or lethargy. No daytime sleepiness. EENT: No headache. No blurred vision or double vision, no loss of vision. No loss of Hearing, no ringing in the ears, no dizziness. No nasal drainage or congestion. No epistaxis. No sore throat. Lungs: No shortness of breath, cough, no sputum production. No wheezing. Cardiovascular: No chest pain, no lower extremity edema. No palpitations. No paroxysmal nocturnal dyspnea. No orthopnea. No lightheadedness or dizziness. No syncopal episodes. Abdominal: Reports abdominal pain. No nausea, vomiting. No diarrhea. No constipation. No bloody or tarry stools. No loss of appetite. Genitourinary: No dysuria, increased frequency, urgency. No urinary retention. Musculoskeletal: No myalgias. No muscle weakness, no gait dysfunction, no frequent falls. No back pain. No neck pain. Integumentary: No wounds, no lesions. No rash or pruritus. No unusual bruising. No change in hair or nails. Neurologic: No aphasia. No facial droop. No change in mentation. No head injury. No headache. No paralysis. No paresthesia. Psychiatric: No depression. No anxiety. No mood swings. Endocrine: No abnormal blood sugars. No weight change. No excessive sweating or thirst. No cold intolerance. SOCIAL HISTORY Patient is a smoker of one and a half to 2 packs per day for 33 years. He denies any marijuana or illicit drug use, no alcohol use. He does have a nebulizer at home. No CPAP or oxygen therapy. He is . FAMILY HISTORY Father at age 50 from lung cancer. Mother is alive at age 69. Patient has one sister and one half brother with no major medical problems. Patient has one daughter with autism living in a assisted. PHYSICAL EXAMINATION Gen: This is this is a 49-year-old male. Patient is resting on the ER stretcher and appears comfortable and in no acute distress. HEENT: Head is atraumatic, normocephalic. Pupils equal, round. Sclerae is anicteric. NECK: Supple. No JVD. No lymphadenopathy. No thyromegaly. LUNGS: Clear to auscultation. No wheezes or rhonchi. No intercostal retractions. HEART: Regular rate and rhythm. No murmur. ABDOMEN: Soft. Bowel sounds are present. No masses. No tenderness. EXTREMITIES: No pedal edema. No calf tenderness. NEUROLOGICAL: Patient is awake, alert and oriented x3. Cranial nerves 2 through 12 are grossly intact. ASSESSMENT AND PLAN 1. Abdominal pain, possible small bowel obstruction. Consult with general surgery, nothing by mouth status, continue IV fluids 0.9 normal saline at 75 mL per hour, morphine 4 mg IV every 4 hours as needed for pain, Zofran 4 mg IV push every 8 hours as needed for nausea and vomiting. A scan of the abdomen and pelvis with oral contrast has been ordered by general surgery. 2. Chronic kidney disease stage IV with baseline creatinine of 1.6. Continue IV fluids, avoid nephrotoxic agents and hypertension. 3. Hypertension. 4. Diabetes mellitus type 2. NovoLog scale every 6 hours. Hold Tradjenta, metformin. 5. History of renal cell carcinoma status post nephrectomy. Avoid nephrotoxic agents. 6. Gastroesophageal reflux disease and GI prophylaxis. Continue Protonix 40 mg IV daily. 7. Chronic back pain. Continue morphine for now. Patient is normally on [place] 10 1-3 times daily as needed. 8. COPD. Continue albuterol inhaler 2 puffs every 6 hours as needed, Spiriva at bedtime. 9. GI prophylaxis. Protonix 40 mg IV daily. 10. DVT prophylaxis. Heparin subcu. Patient will be admitted to the hospital for a minimum of 2 night stay. DISCHARGE PLAN Home. Impression and plan of care have been directed as dictated by the signing physician. Luly Coffey nurse practitioner acting as scribe for signing physician. Past Medical History Past Medical History: Atrial Fibrillation, Cancer, COPD, Diabetes Mellitus, GI Bleed, Hypertension Additional Past Medical History / Comment(s): RENAL CELL CA, DUODENAL ULCER, HIATAL HERNIA, BORDERLINE PERSONALITY DISORDER, PANIC EPISODES, ANXIETY, OCD, chronic back pain, chronic bronchitis History of Any Multi-Drug Resistant Organisms: None Reported Past Surgical History: Cholecystectomy, Hernia Repair Additional Past Surgical History / Comment(s): duodenal ulcer surgery, left kidney removal Past Anesthesia/Blood Transfusion Reactions: No Reported Reaction Past Psychological History: Anxiety, Bipolar Smoking Status: Current every day smoker Past Alcohol Use History: None Reported Past Drug Use History: None Reported - Past Family History Father Family Medical History: Cancer Additional Family Medical History / Comment(s): lung cancer Medications and Allergies Home Medications Medication Instructions Recorded Confirmed Type hydroCHLOROthiazide [Hydrodiuril] 12.5 mg PO DAILY 11/27/16 08/16/20 History Fenofibrate 160 mg PO HS 09/18/17 08/16/20 History Hydrocodone/Acetaminophen [[place] 1 tab PO TID PRN 09/18/17 08/16/20 History 10-325] Pantoprazole Sodium [Protonix] 40 mg PO DAILY 10/12/19 08/16/20 History lisinopriL [Zestril] 10 mg PO HS 10/12/19 08/16/20 History Cholecalciferol (Vitamin D3) 125 mcg PO DAILY 01/28/20 08/16/20 History [Vitamin D3] Linagliptin [Tradjenta] 5 mg PO DAILY 01/28/20 08/16/20 History Tiotropium [place] [Spiriva] 1 cap INHALATION RT-HS 01/28/20 08/16/20 History Albuterol Sulfate [Proair Hfa] 1 - 2 puff INHALATION RT-Q6H PRN 08/02/20 08/16/20 History Aspirin EC [Ecotrin Low Dose] 81 mg PO DAILY 08/02/20 08/16/20 History metFORMIN HCL 1,000 mg PO BID 08/02/20 08/16/20 History Fluticasone Propionate [Flovent 1 puff INHALATION RT-DAILY 08/16/20 08/16/20 History Hfa 220 mcg] Magnesium Oxide [Mag-Ox] 400 mg PO DAILY 08/16/20 08/16/20 History Metoprolol Succinate [Toprol XL] 100 mg PO BID 08/16/20 08/16/20 History Allergies Allergy/AdvReac Type Severity Reaction Status Date / Time Iodinated Contrast Media AdvReac KIDNEY Verified 08/16/20 07:17 [Iodinated Contrast- Oral and IV Dye] Physical Exam Vitals: Vital Signs Temp Pulse Resp BP Pulse Ox 08/16/20 08:54 73 18 137/84 97 08/16/20 03:53 97.9 F 72 18 132/82 96 08/16/20 02:53 75 18 135/83 96 08/16/20 01:11 74 18 137/77 08/15/20 22:09 97.9 F 71 16 154/96 98 Intake and Output 08/15/20 08/16/20 08/16/20 22:59 06:59 14:59 Other: Weight 124.738 kg Results CBC & Chem 7: 08/15/20 22:50 08/15/20 22:50 Labs: Abnormal Lab Results - Last 24 Hours (Table) 08/15/20 08/15/20 08/15/20 Range/Units 22:50 22:50 22:50 WBC 13.5 H (3.8-10.6) k/uL Plt Count 509 H (150-450) k/uL Neutrophils # 9.1 H (1.3-7.7) k/uL Sodium 136 L (137-145) mmol/L BUN 21 H (9-20) mg/dL Creatinine 1.67 H (0.66-1.25) mg/dL Glucose 122 H (74-99) mg/dL Calcium 10.3 H (8.4-10.2) mg/dL Alkaline Phosphatase 36 L (38-126) U/L C-Reactive Protein 1.0 H (<1.0) mg/dL Urine Protein 3+ H (Negative) Urine Blood Small H (Negative) Urine Mucus Rare H (None) /hpf
[2020-08-16 11:03] LABS: Glucose,Whole Blood 94 mg/dL (75-99)
[2020-08-16] MEDS: FAMOTIDINE 20 MG/2 ML VIAL IV SCH ×2 (11:05→21:10)
[2020-08-16] MEDS: INSULIN ASPART (NovoLOG) 100 UNIT/ML VIAL SQ SCH ×3 (11:21→21:03)
[2020-08-16] MEDS ORDERED: BARIUM SULFATE 450 ML ORAL.SUSP BOTTLE PO PRN (11:21)
--- NOTE | 2020-08-16 12:03 | P.GSCN ---
History of Present Illness Consult date: 08/16/20 History of present illness: CHIEF COMPLAINT: Epigastric abdominal pain HISTORY OF PRESENT ILLNESS: This is a 49-year-old male with a known history of diabetes mellitus, hypertension, COPD, chronic back pain, renal cell carcinoma status post nephrectomy, OCD, bipolar disorder, duodenal ulcer status post surgical repair, hiatal hernia repair and cholecystectomy. Patient presents to the hospital with complaints of epigastric abdominal pain for the past 3 days. He denies any nausea or vomiting. He reports having bowel movements. He did try taking Pepto-Bismol with no relief and his symptoms. Patient's notices a bulge at the top of his mid abdominal scar. He reports that this is where his pain is located. He currently has no pain. He denies any fever, chills or sweats. He had a computed tomography scan of the abdomen and pelvis without contrast that showed some dilated small bowel loops in the upper and mid abdomen. This is also present on old exam. A chronic partial obstruction or chronic ileus was suspected. Exam limited due to lack of contrast. Surgical service consulted for abdominal pain and concerns for partial small bowel obstruction. PAST MEDICAL HISTORY: See list. PAST SURGICAL HISTORY: See list. MEDICATIONS: See list. ALLERGIES: See list. SOCIAL HISTORY: No illicit drug use. REVIEW OF SYSTEMS: CONSTITUTIONAL: Denies fever or chills. HEENT: Denies blurred vision, vision changes, or eye pain. Denies hemoptysis CARDIOVASCULAR: Denies chest pain or pressure. RESPIRATORY: No shortness of breath. GASTROINTESTINAL: See HPI for pertinent findings HEMATOLOGIC: Denies bleeding disorders. GENITOURINARY: Denies any blood in urine or increased urinary frequency. SKIN: Denies pruitis. Denies rash. PHYSICAL EXAM: VITAL SIGNS: Reviewed GENERAL: Well-developed in no acute distress. HEENT: No sclera icterus. Extraocular movements grossly intact. Moist buccal mucosa. Head is atraumatic, normocephalic. No nasal drainage. ABDOMEN: Soft. Nondistended. Nontender. Patient has old abdominal scars that are healed. There is a slight bulge noted at the top of the mid abdomen incision when patient sits forward. NEUROLOGIC: Alert and oriented. Cranial nerves II through XII grossly intact. LABORATORY DATA: WBC 13.5 hemoglobin 13.7 platelets 509 sodium 136 potassium 4.6 creatinine 1.67 lactic 1.9 LFTs normal lipase normal UA negative COVID-19 not detected IMAGING: computed tomography scan of the abdomen and pelvis without contrast that showed some dilated small bowel loops in the upper and mid abdomen. This is also present on old exam. A chronic partial obstruction or chronic ileus was suspected. Exam limited due to lack of contrast. ASSESSMENT: 1. Epigastric abdominal pain with limited computed tomography scan due to lack of contrast. Findings didn't reveal a chronic partial small bowel obstruction or chronic ileus suspected 2. Prior history of duodenal ulcers requiring surgical repair 3. History of hiatal hernia surgery 4. History of cholecystectomy PLAN: -Computed tomography scan of the abdomen and pelvis with oral contrast ordered -Keep patient nothing by mouth for now -Continue IV fluids -Further recommendations forthcoming per surgeon Thank you for this consultation Physician Derrick Follower note has been reviewed by physician. Signing provider agrees with the documented findings, assessment, and plan of care. Past Medical History Past Medical History: Atrial Fibrillation, Cancer, COPD, Diabetes Mellitus, GI Bleed, Hypertension Additional Past Medical History / Comment(s): RENAL CELL CA, DUODENAL ULCER, H IATAL HERNIA, BORDERLINE PERSONALITY DISORDER, PANIC EPISODES, ANXIETY, OCD, chronic back pain, chronic bronchitis History of Any Multi-Drug Resistant Organisms: None Reported Past Surgical History: Cholecystectomy, Hernia Repair Additional Past Surgical History / Comment(s): duodenal ulcer surgery, left kidney removal Past Anesthesia/Blood Transfusion Reactions: No Reported Reaction Past Psychological History: Anxiety, Bipolar Smoking Status: Current every day smoker Past Alcohol Use History: None Reported Past Drug Use History: None Reported - Past Family History Father Family Medical History: Cancer Additional Family Medical History / Comment(s): lung cancer Medications and Allergies Home Medications Medication Instructions Recorded Confirmed Type hydroCHLOROthiazide [Hydrodiuril] 12.5 mg PO DAILY 11/27/16 08/16/20 History Fenofibrate 160 mg PO HS 09/18/17 08/16/20 History Hydrocodone/Acetaminophen [[place] 1 tab PO TID PRN 09/18/17 08/16/20 History 10-325] Pantoprazole Sodium [Protonix] 40 mg PO DAILY 10/12/19 08/16/20 History lisinopriL [Zestril] 10 mg PO HS 10/12/19 08/16/20 History Cholecalciferol (Vitamin D3) 125 mcg PO DAILY 01/28/20 08/16/20 History [Vitamin D3] Linagliptin [Tradjenta] 5 mg PO DAILY 01/28/20 08/16/20 History Tiotropium [place] [Spiriva] 1 cap INHALATION RT-HS 01/28/20 08/16/20 History Albuterol Sulfate [Proair Hfa] 1 - 2 puff INHALATION RT-Q6H PRN 08/02/20 08/16/20 History Aspirin EC [Ecotrin Low Dose] 81 mg PO DAILY 08/02/20 08/16/20 History metFORMIN HCL 1,000 mg PO BID 08/02/20 08/16/20 History Fluticasone Propionate [Flovent 1 puff INHALATION RT-DAILY 08/16/20 08/16/20 History Hfa 220 mcg] Magnesium Oxide [Mag-Ox] 400 mg PO DAILY 08/16/20 08/16/20 History Metoprolol Succinate [Toprol XL] 100 mg PO BID 08/16/20 08/16/20 History Allergies Allergy/AdvReac Type Severity Reaction Status Date / Time Iodinated Contrast Media AdvReac KIDNEY Verified 08/16/20 07:17 [Iodinated Contrast- Oral and IV Dye] Surgical - Exam Vital Signs Temp Pulse Resp BP Pulse Ox 97.9 F 71 16 154/96 98 08/15/20 22:09 08/15/20 22:09 08/15/20 22:09 08/15/20 22:09 08/15/20 22:09 Results - Labs 08/15/20 22:50 08/15/20 22:50 Abnormal Lab Results - Last 24 Hours (Table) 08/15/20 08/15/20 08/15/20 Range/Units 22:50 22:50 22:50 WBC 13.5 H (3.8-10.6) k/uL Plt Count 509 H (150-450) k/uL Neutrophils # 9.1 H (1.3-7.7) k/uL Sodium 136 L (137-145) mmol/L BUN 21 H (9-20) mg/dL Creatinine 1.67 H (0.66-1.25) mg/dL Glucose 122 H (74-99) mg/dL Calcium 10.3 H (8.4-10.2) mg/dL Alkaline Phosphatase 36 L (38-126) U/L C-Reactive Protein 1.0 H (<1.0) mg/dL Urine Protein 3+ H (Negative) Urine Blood Small H (Negative) Urine Mucus Rare H (None) /hpf Diabetes panel 08/15/20 Range/Units 22:50 Sodium 136 L (137-145) mmol/L Potassium 4.6 (3.5-5.1) mmol/L Chloride 101 (98-107) mmol/L Carbon Dioxide 26 (22-30) mmol/L BUN 21 H (9-20) mg/dL Creatinine 1.67 H (0.66-1.25) mg/dL Glucose 122 H (74-99) mg/dL Calcium 10.3 H (8.4-10.2) mg/dL AST 22 (17-59) U/L ALT 18 (4-49) U/L Alkaline Phosphatase 36 L (38-126) U/L Total Protein 7.2 (6.3-8.2) g/dL Albumin 4.5 (3.5-5.0) g/dL Calcium panel 08/15/20 Range/Units 22:50 Calcium 10.3 H (8.4-10.2) mg/dL Albumin 4.5 (3.5-5.0) g/dL Pituitary panel 08/15/20 Range/Units 22:50 Sodium 136 L (137-145) mmol/L Potassium 4.6 (3.5-5.1) mmol/L Chloride 101 (98-107) mmol/L Carbon Dioxide 26 (22-30) mmol/L BUN 21 H (9-20) mg/dL Creatinine 1.67 H (0.66-1.25) mg/dL Glucose 122 H (74-99) mg/dL Calcium 10.3 H (8.4-10.2) mg/dL Adrenal panel 08/15/20 Range/Units 22:50 Sodium 136 L (137-145) mmol/L Potassium 4.6 (3.5-5.1) mmol/L Chloride 101 (98-107) mmol/L Carbon Dioxide 26 (22-30) mmol/L BUN 21 H (9-20) mg/dL Creatinine 1.67 H (0.66-1.25) mg/dL Glucose 122 H (74-99) mg/dL Calcium 10.3 H (8.4-10.2) mg/dL Total Bilirubin 0.2 (0.2-1.3) mg/dL AST 22 (17-59) U/L ALT 18 (4-49) U/L Alkaline Phosphatase 36 L (38-126) U/L Total Protein 7.2 (6.3-8.2) g/dL Albumin 4.5 (3.5-5.0) g/dL
[2020-08-16] MEDS: HYDROmorphone 0.5 MG/0.5 ML SYRINGE IVP PRN ×3 (13:44→23:46)
--- NOTE | 2020-08-16 15:49 | CT ---
EXAMINATION TYPE: CT abdomen pelvis wo con DATE OF EXAM: 08/16/2020 COMPARISON: 08/16/2020 HISTORY: Generalized pain. CT DLP: 1287.4 mGycm Examination of the solid and hollow viscera is limited given the lack of contrast. FINDINGS: LUNG BASES: No evidence for nodule. No evidence for infiltrate. LIVER/GB: The gallbladder is surgically absent. No space-occupying hepatic lesion. PANCREAS: No pancreatic mass identified. No inflammatory process seen. SPLEEN: No evidence for splenomegaly. No intrasplenic lesions seen. ADRENALS: No adrenal nodules identified. No evidence for thickening. KIDNEYS: No evidence for renal mass. No nephrolithiasis. No hydronephrosis. Left-sided nephrectomy ch anges present. BOWEL: Appendix has a normal appearance. Interval improvement in dilated mid abdominal small bowel lo ops. There is mild persistent distention with bowel loops measuring up to 2.7 cm versus 3.8 cm on the previous study. And wall thickening which could reflect enteritis. Contrast is identified within the right hemicolon. No evidence for free air or abscess. No inflammatory process seen. Lymph nodes: No evidence for adenopathy greater than 1 cm. Abdominal aorta: Atheromatous changes seen. No evidence for aneurysm. Genital organs: No significant abnormality. Other: No significant abnormality. IMPRESSION: Interval improvement in dilated mid abdominal small bowel loops. There is mild persistent distention with bowel loops measuring up to 2.7 cm versus 3.8 cm on the previous study. And wall thickening whic h could reflect enteritis. Contrast is identified within the right hemicolon.
[2020-08-16 16:43] LABS: Glucose,Whole Blood 104 mg/dL (75-99)
[2020-08-16] MEDS: IPRATROPIUM 0.5 MG/2.5 ML NEBU INHALATION SCH (19:37)
[2020-08-16 20:51] LABS: Glucose,Whole Blood 104 mg/dL (75-99)
[2020-08-16] MEDS ORDERED: FENOFIBRATE 160 MG TAB PO SCH (21:00)
[2020-08-16] MEDS: HEPARIN SODIUM,PORCINE/PF 5,000 UNIT/0.5 ML SYRINGE SQ SCH (21:10)
[2020-08-17 03:00] VITALS: TEMP 97.6
[2020-08-17] MEDS: HYDROmorphone 0.5 MG/0.5 ML SYRINGE IVP PRN ×2 (05:46→09:44)
[2020-08-17] MEDS: SODIUM CHLORIDE 0.9% 1,000 ML IV SCH (05:50)
[2020-08-17 07:16] LABS: Glucose,Whole Blood 101 mg/dL (75-99)
[2020-08-17] MEDS: INSULIN ASPART (NovoLOG) 100 UNIT/ML VIAL SQ SCH (07:17)
[2020-08-17] MEDS: FAMOTIDINE 20 MG/2 ML VIAL IV SCH (07:18)
[2020-08-17] MEDS: HEPARIN SODIUM,PORCINE/PF 5,000 UNIT/0.5 ML SYRINGE SQ SCH (07:18)
[2020-08-17] MEDS: PANTOPRAZOLE 40 MG/10 ML VIAL IV SCH (07:18)
[2020-08-17] MEDS: IPRATROPIUM 0.5 MG/2.5 ML NEBU INHALATION SCH ×2 (08:15→11:08)
[2020-08-17] MEDS: FLUTICASONE 220 MCG INHALER INHALATION SCH ×2 (08:15→11:08)
[2020-08-17 08:41] VITALS: BP 134/88; RESP 16
[2020-08-17 08:48] LABS: Basophils # (A) 0.1 k/uL (0-0.2); Basophils % (A) 1 %; Eosinophils # (A) 0.2 k/uL (0-0.7); Eosinophils % (A) 1 %; HCT 40.1 % (39.0-53.0); HGB 13.1 gm/dL (13.0-17.5); Lymphocytes % (A) 18 %; MCH 28.8 pg (25.0-35.0); MCHC 32.8 g/dL (31.0-37.0); Mean Platelet Volume 6.4; Monocytes # (A) 0.3 k/uL (0-1.0); Monocytes % (A) 3 %; Neutrophils # (A) 8.1 k/uL (1.3-7.7); Neutrophils % (A) 75 %; Platelet Count 420 k/uL (150-450); RBC 4.56 m/uL (4.30-5.90); RDW 13.6 % (11.5-15.5); WBC 10.8 k/uL (3.8-10.6)
[2020-08-17] MEDS ORDERED: ASPIRIN 81 MG PO SCH (09:00)
[2020-08-17] MEDS ORDERED: LINAGLIPTIN 5 MG TABLET PO SCH (09:00)
[2020-08-17 09:01] LABS: African American GFR (CKD) 59 (>60 ml/min/1.73 sqM); Anion Gap 8 mmol/L; Blood Urea Nitrogen 18 mg/dL (9-20); Calcium 9.6 mg/dL (8.4-10.2); Carbon Dioxide 23 mmol/L (22-30); Chloride 104 mmol/L (98-107); Glucose 166 mg/dL (74-99); Non-African American GFR(CKD) 51 (>60 ml/min/1.73 sqM); Potassium 4.3 mmol/L (3.5-5.1); Sodium 135 mmol/L (137-145)
--- NOTE | 2020-08-17 10:37 | P.DS ---
Providers Date of admission: 08/16/20 12:13 Expected date of discharge: 08/17/20 Attending physician: Shay Chacon Consults: 08/16/20 02:57 Consult Physician Routine Consulting Provider: Justin Fernandez Consult Reason/Comments: Abdominal pain. Partial small bowel obstruction Do you want consulting provider notified?: Yes Primary care physician: [facility] Course: HISTORY OF PRESENT ILLNESS This is a 49-year-old male patient of [facility] with past medical history of hypertension, SVT, COPD, chronic back pain, renal cell carcinoma status post nephrectomy, obsessive-compulsive disorder and bipolar disorder currently on disability, history of duodenal ulcer and hiatal hernia. He has history of open cholecystectomy, duodenal ulcer with repair in 2003, left-sided nephrectomy. Patient complains of abdominal pain that started on August 08 but significant pain started 3 days ago in the epigastric area. He states he has to be careful what he eats and drinks. He denies having any nausea or vomiting. He denies any diarrhea. He states he has more frequent increased pain with cramps. He is having normal bowel movements. Patient presented to [facility] emergency center for evaluation. He was found to be afebrile, heart rate 71, blood pressure 154/96, pulse ox 98% on room air. WBC 13.5, hemoglobin 13.7, platelet count 509. Sodium 136, potassium 4.6, chloride 101, CO2 26, BUN 21 creatinine 1.67. Glucose 122. Calcium 10.3, total bilirubin 0.2, AST 22, ALT 18, alkaline phosphatase 36. C-reactive protein 1. Lipase 193. Albumin 4.5. Urinalysis clear with nitrate and leukoesterase negative. Small amount of blood. Lactic acid 1.9. Troponin 0.017, 0.016, 0.020. Coronavirus PCR not detected. EKG sinus rhythm with no acute ST changes. Chest x-ray reveals no acute process KUB reveals no acute abdomen. CAT scan of the abdomen and pelvis without contrast revealed dilated small bowel loops in the upper and mid abdomen. This is present on old exam. A chronic partial obstruction or chronic ileus suspected. There was concern for small bowel obstruction, patient did declined NG tube. Patient placed on observation status and consult with Dr. Fernandez. General surgery has ordered CAT scan of the abdomen and pelvis with oral contrast, nothing by mouth status. Patient is seen today in the emergency center. 08/17: Patient underwent CAT scan of the abdomen and pelvis without contrast reveals interval improvement of dilated mid abdominal small bowel loops. There is mild persistent distention with bowel loops measuring up to 2.7 cm versus 3.8 cm on the previous study. Wall thickening could reflect enteritis. Contrast is identified within the right hemicolon. Yesterday, diet was advanced to regular and patient is eating 100% with no nausea or vomiting. Abdomen is nontender. Patient did have a bowel movement that was brown, no signs of blood. Repeat blood work reveals WBC 10.8, hemoglobin 13.1, platelet count 420. Sodium 135, potassium 4.3, chloride 104, CO2 23, BUN 18 and creatinine 1.57. Blood sugars are running between 101 and 166. Patient will be discharged home today in stable condition. ASSESSMENT AND PLAN 1. Abdominal pain, possible mild small bowel obstruction, resolved. 2. Chronic kidney disease stage IV with baseline creatinine of 1.6. 3. Hypertension. 4. Diabetes mellitus type 2. 5. History of renal cell carcinoma status post nephrectomy. 6. Gastroesophageal reflux disease. 7. Chronic back pain. 8. COPD. DISCHARGE PLAN Home. Impression and plan of care have been directed as dictated by the signing physician. Luly Coffey nurse practitioner acting as scribe for signing physician. Patient Condition at Discharge: Good Plan - Discharge Summary Discharge Rx Participant: No New Discharge Prescriptions: Continue hydroCHLOROthiazide [Hydrodiuril] 12.5 mg PO DAILY Fenofibrate 160 mg PO HS Hydrocodone/Acetaminophen [[place] 10-325] 1 tab PO TID PRN PRN Reason: Pain lisinopriL [Zestril] 10 mg PO HS Pantoprazole Sodium [Protonix] 40 mg PO DAILY Tiotropium [place] [Spiriva] 1 cap INHALATION RT-HS Linagliptin [Tradjenta] 5 mg PO DAILY Cholecalciferol (Vitamin D3) [Vitamin D3 (5000 Iu)] 125 mcg PO DAILY Albuterol Sulfate [Proair Hfa] 1 - 2 puff INHALATION RT-Q6H PRN PRN Reason: Shortness Of Breath Fluticasone Propionate [Flovent Hfa 220 mcg] 1 puff INHALATION RT-DAILY Magnesium Oxide [Mag-Ox] 400 mg PO DAILY Metoprolol Succinate [Toprol XL] 100 mg PO BID Aspirin EC [Ecotrin Low Dose] 81 mg PO DAILY metFORMIN HCL 1,000 mg PO BID Discharge Medication List hydroCHLOROthiazide [Hydrodiuril] 12.5 mg PO DAILY 11/27/16 [History] Fenofibrate 160 mg PO HS 09/18/17 [History] Hydrocodone/Acetaminophen [[place] 10-325] 1 tab PO TID PRN 09/18/17 [History] Pantoprazole Sodium [Protonix] 40 mg PO DAILY 10/12/19 [History] lisinopriL [Zestril] 10 mg PO HS 10/12/19 [History] Cholecalciferol (Vitamin D3) [Vitamin D3 (5000 Iu)] 125 mcg PO DAILY 01/28/20 [History] Linagliptin [Tradjenta] 5 mg PO DAILY 01/28/20 [History] Tiotropium [place] [Spiriva] 1 cap INHALATION RT-HS 01/28/20 [History] Albuterol Sulfate [Proair Hfa] 1 - 2 puff INHALATION RT-Q6H PRN 08/02/20 [History] Aspirin EC [Ecotrin Low Dose] 81 mg PO DAILY 08/02/20 [History] metFORMIN HCL 1,000 mg PO BID 08/02/20 [History] Fluticasone Propionate [Flovent Hfa 220 mcg] 1 puff INHALATION RT-DAILY 08/16/20 [History] Magnesium Oxide [Mag-Ox] 400 mg PO DAILY 08/16/20 [History] Metoprolol Succinate [Toprol XL] 100 mg PO BID 08/16/20 [History] Follow up Appointment(s)/Referral(s): [facility] [Primary Care Provider] - 08/25/20 2:30 pm Justin Fernandez MD [STAFF PHYSICIAN] - 08/30/20 3:10 pm Patient Instructions/Handouts: Bowel Obstruction (DC) Discharge Disposition: HOME SELF-CARE
[2020-08-17] MEDS ORDERED: METOPROLOL SUCCINATE (ER) 100 MG TAB.ER.24H PO SCH (10:45)
[2020-08-17 11:10] VITALS: PULSE 88
--- NOTE | 2020-08-17 15:17 | P.PN ---
Subjective Progress Note Date: 08/17/20 CHIEF COMPLAINT: Abdominal pain HISTORY OF PRESENT ILLNESS: Surgical service is following regards to patient's abdominal pain. Patient reports improvement in his abdominal pain. He did have some pain yesterday after eating potato chips. He denies any nausea or vomiting. He is having bowel movements and flatus. He is tolerating regular diet. He has been up and ambulating. He's afebrile. Patient had computed tomography scan and pelvis with oral contrast shows interval improvement and dilated mid abdominal small bowel loops. There is mild persistent distention within the bowel loops measuring up to 2.7 cm versus 3.8 cm on previous study. And wall thickening which could reflect enteritis. PHYSICAL EXAM: VITAL SIGNS: Reviewed. GENERAL: Well-developed in no acute distress. HEENT: No sclera icterus. Extraocular movements grossly intact. Moist buccal mucosa. Head is atraumatic, normocephalic. ABDOMEN: Soft. Nondistended. Nontender. NEUROLOGIC: Alert and oriented. Cranial nerves II through XII grossly intact. ASSESSMENT: 1. Epigastric abdominal pain improved. With repeat CAT scan findings showing wall thickening which could reflect an enteritis. 2. Prior history of duodenal ulcers requiring surgical repair 3. History of hiatal hernia surgery 4. History of cholecystectomy PLAN: -Patient is stable from surgical standpoint for discharge -Further workup to be completed outpatient Physician Selling Manager note has been reviewed by physician. Signing provider agrees with the documented findings, assessment, and plan of care. Objective - Vital Signs Vital signs: Vital Signs Temp 97.6 F 08/17/20 07:00 Pulse 88 08/17/20 11:20 Resp 16 08/17/20 07:00 BP 134/88 08/17/20 07:00 Pulse Ox 98 08/17/20 07:00 Intake & Output 08/16/20 08/17/20 08/17/20 18:59 06:59 18:59 Intake Total 236 Balance 236 Intake: Oral 236 - Labs CBC & Chem 7: 08/17/20 08:28 08/17/20 08:28 Labs: Abnormal Lab Results - Last 24 Hours (Table) 08/16/20 08/16/20 08/17/20 Range/Units 16:41 20:50 07:14 WBC (3.8-10.6) k/uL Neutrophils # (1.3-7.7) k/uL Sodium (137-145) mmol/L Creatinine (0.66-1.25) mg/dL Glucose (74-99) mg/dL POC Glucose (mg/dL) 104 H 104 H 101 H (75-99) mg/dL 08/17/20 08/17/20 Range/Units 08:28 08:28 WBC 10.8 H (3.8-10.6) k/uL Neutrophils # 8.1 H (1.3-7.7) k/uL Sodium 135 L (137-145) mmol/L Creatinine 1.57 H (0.66-1.25) mg/dL Glucose 166 H (74-99) mg/dL POC Glucose (mg/dL) (75-99) mg/dL
[2020-08-17] MEDS ORDERED: FAMOTIDINE 20 MG TAB PO SCH (21:00)
== END 2020-08-17 11:52 | disposition home or self-care (01) ==
LOC: EC 21:27 → 6NMEDSUR 08-16 02:56 → OBSVTOIN 08-16 12:13 → INTOOBSV 08-16 12:13 → 4SSUR 08-16 13:14 → UNDODISIN 08-17 11:52
PROVIDERS: ADMIT Internal Medicine Geriatric Medicine; ATTEND Internal Medicine Geriatric Medicine
DX: K56.600 Partial intestinal obstruction, unspecified as to cause (principal); N18.4 Chronic kidney disease, stage 4 (severe); I12.9 Hypertensive chronic kidney disease with stage 1 through stage 4 chronic kidney disease, or unspecified chronic kidney disease; Z20.822 Contact with and (suspected) exposure to COVID-19; E11.22 Type 2 diabetes mellitus with diabetic chronic kidney disease; J44.9 Chronic obstructive pulmonary disease, unspecified; F17.210 Nicotine dependence, cigarettes, uncomplicated; F42.9 Obsessive-compulsive disorder, unspecified; I48.91 Unspecified atrial fibrillation; G89.29 Other chronic pain; M54.9 Dorsalgia, unspecified; K44.9 Diaphragmatic hernia without obstruction or gangrene; F41.9 Anxiety disorder, unspecified; F60.3 Borderline personality disorder; F31.9 Bipolar disorder, unspecified; K21.9 Gastro-esophageal reflux disease without esophagitis; Z79.51 Long term (current) use of inhaled steroids; Z79.82 Long term (current) use of aspirin; Z79.84 Long term (current) use of oral hypoglycemic drugs; Z79.899 Other long term (current) drug therapy; Z91.041 Radiographic dye allergy status; Z90.5 Acquired absence of kidney; Z87.11 Personal history of peptic ulcer disease; Z90.49 Acquired absence of other specified parts of digestive tract; Z85.528 Personal history of other malignant neoplasm of kidney; Z87.19 Personal history of other diseases of the digestive system; Z80.1 Family history of malignant neoplasm of trachea, bronchus and lung
CPT/HCPCS: 99285; 96376 ×2; 96372 ×2; 96361 ×3; 96374; 96375; 36415 ×2; 94640 ×3; 93005; 80053; 80048; 82150; 83605; 83690; 84484; 85025 ×2; 86140; 81001; 87635; 74018; 74176; G0378 ×3; J2270; C9113 ×2; J1170 ×2; J1644 ×2

== ENCOUNTER 2020-09-12 20:21 | Inpatient (IN) | payer OTHER ==
[2020-09-12] MEDS ORDERED: SODIUM CHLORIDE 0.9% 1,000 ML IV STA (20:39)
[2020-09-12] MEDS ORDERED: HYDROmorphone 0.5 MG/0.5 ML SYRINGE IVP STA ×2 (20:39→22:52)
[2020-09-12] MEDS ORDERED: diphenhydrAMINE 50 MG/ML 1 ML VIAL IVP STA (20:40)
[2020-09-12] MEDS ORDERED: FAMOTIDINE 20 MG/2 ML VIAL IV STA (20:40)
[2020-09-12] MEDS ORDERED: methylPREDNISolone SOD SUCCI 125 MG/2 ML VIAL IV STA (20:40)
--- NOTE | 2020-09-12 21:38 | ED ---
Abdominal Pain HPI - General Chief Complaint: Abdominal Pain Stated Complaint: Abd Pain Time Seen by Provider: 09/12/20 20:33 Source: patient, police Mode of arrival: ambulatory Limitations: no limitations - History of Present Illness Initial Comments: Patient is a 49-year-old male with history of A. fib, diabetes, renal cell carcinoma with left kidney removal, presenting to the emergency Department with complaints of mid epigastric pain that started approximately 4-5 hours prior to arrival. Patient arrives from the long-term with police escort. He states he was here about 1 month ago, diagnosed with a possible small bowel obstruction. He states his pulse to follow-up with a surgeon but got arrested the day before. He describes his pain as on the mid epigastric region with some referred pain down to the lower abdomen and to the right side. He states he feels a little bit of chest tightness with this as well but thinks is because of the pain is so severe. He denies any shortness of breath, no recent fevers or chills. Denies any nausea or vomiting, eyes been having regular bowel movements. He has been passing gas. He admits to history of left kidney removal, cholecystectomy, hernia repair, ulcer repair. He also admits to history of SVT, he states he was here on August 02 and had to be given medicine for the SVT which did respond. He has had no further complaints of that. Patient denies any further complaints at this time. Upon arrival to the ER, he has had a tachycardia at 120, rest of vitals normal. - Related Data Home Medications Medication Instructions Recorded Confirmed hydroCHLOROthiazide [Hydrodiuril] 12.5 mg PO DAILY 11/27/16 09/12/20 Fenofibrate 160 mg PO HS 09/18/17 09/12/20 Pantoprazole Sodium [Protonix] 40 mg PO DAILY 10/12/19 09/12/20 lisinopriL [Zestril] 10 mg PO HS 10/12/19 09/12/20 Albuterol Sulfate [Proair Hfa] 1 - 2 puff INHALATION RT-Q6H PRN 08/02/20 metFORMIN HCL [Glucophage] 1,000 mg PO BID 08/02/20 09/12/20 Magnesium Oxide [Mag-Ox] 400 mg PO DAILY 08/16/20 09/12/20 Ciclesonide [Alvesco] 1 puff INHALATION RT-BID 09/12/20 09/12/20 Metoprolol Tartrate [Lopressor] 100 mg PO BID 09/12/20 09/12/20 glipiZIDE [Glucotrol] 10 mg PO DAILY 09/12/20 09/12/20 Allergies Allergy/AdvReac Type Severity Reaction Status Date / Time Iodinated Contrast Media AdvReac KIDNEY Verified 09/12/20 22:59 [Iodinated Contrast- Oral and IV Dye] Review of Systems ROS Statement: Those systems with pertinent positive or pertinent negative responses have been documented in the HPI. ROS Other: All systems not noted in ROS Statement are negative. Past Medical History Past Medical History: Atrial Fibrillation, Cancer, COPD, Diabetes Mellitus, GI Bleed, Hypertension Additional Past Medical History / Comment(s): RENAL CELL CA, DUODENAL ULCER, HIATAL HERNIA, BORDERLINE PERSONALITY DISORDER, PANIC EPISODES, ANXIETY, OCD, chronic back pain, chronic bronchitis History of Any Multi-Drug Resistant Organisms: None Reported Past Surgical History: Cholecystectomy, Hernia Repair Additional Past Surgical History / Comment(s): duodenal ulcer surgery, left kidney removal Past Anesthesia/Blood Transfusion Reactions: No Reported Reaction Past Psychological History: Anxiety, Bipolar Smoking Status: Current every day smoker Past Alcohol Use History: None Reported Past Drug Use History: None Reported - Past Family History Father Family Medical History: Cancer Additional Family Medical History / Comment(s): lung cancer General Exam - General Exam Comments Initial Comments: GENERAL: Patient is well-developed and well-nourished. Patient is nontoxic and in mild distress. HEAD: Atraumatic, normocephalic. EYES: Pupils equal round and reactive to light, extraocular movements intact, sclera anicteric, conjunctiva are normal. Eyelids were unremarkable. ENT: TMs normal, nares patent, oropharynx clear without exudates. Moist mucous membranes. NECK: Normal range of motion, supple without lymphadenopathy or JVD. LUNGS: Unlabored respirations. Breath sounds clear to auscultation bilaterally and equal. No wheezes rales or rhonchi. HEART: Regular rate and rhythm without murmurs, rubs or gallops. ABDOMEN: Soft, tender to palpation of the epigastrium it, mid abdomen region, also the right upper quadrant, normoactive bowel sounds. No masses appreciated. : Deferred MUSCULOSKELETAL: Normal extremities with adequate strength and normal range of motion, no pitting or edema. No clubbing or cyanosis. NEUROLOGICAL: Patient is alert and oriented x 3. Motor and sensory are also intact. Cranial nerves II through XII grossly intact. Symmetrical smile. Normal speech, normal gait. PSYCH: Normal mood, normal affect. SKIN: Warm, Dry, normal turgor, no rashes or lesions noted. Limitations: no limitations Course Vital Signs 09/12/20 20:22 Temperature 98.1 F Pulse Rate 121 H Respiratory 20 Rate Blood Pressure 119/86 O2 Sat by Pulse 97 Oximetry Medical Decision Making - Medical Decision Making Patient is a 49-year-old male here with epigastric and right upper quadrant pain that started about 45 hours prior to arrival. Does have history of multiple abdominal surgeries, left kidney removal secondary to cancer. Patient is tachycardia, otherwise vitals are normal. EKG shows tachycardia, no acute ST segment elevation. Labs are showing a white count of 18.4, creatinine is 2.19 which is up from his baseline of 1.5. BUN is 33, GFR is 34, lactic acid is normal at 1.1, lipase is 304, troponin is normal. Urine shows 3+ protein, small amount of blood, no signs of infection. CT of the abdomen and pelvis without contrast reveals dilated loops of small bowel in the mid abdomen suggestive of a partial mechanical obstruction. Patient was given fluids, pain control. He does report some mild improvement of symptoms but still constantly requesting pain medication. Patient will be admitted for partial bowel obstruction, SAURAV. Pt accepted by Dr. Chacon with consult to Dr. Fernandez. Case discussed with Dr. Elias. - Lab Data Result diagrams: 09/12/20 20:50 09/12/20 20:50 Lab Results 09/12/20 09/12/20 09/12/20 Range/Units 20:50 20:50 20:50 WBC 18.4 H (3.8-10.6) k/uL RBC 4.85 (4.30-5.90) m/uL Hgb 13.7 (13.0-17.5) gm/dL Hct 42.4 (39.0-53.0) % MCV 87.6 (80.0-100.0) fL MCH 28.2 (25.0-35.0) pg MCHC 32.2 (31.0-37.0) g/dL RDW 13.8 (11.5-15.5) % Plt Count 540 H (150-450) k/uL MPV 6.9 Neutrophils % 73 % Lymphocytes % 19 % Monocytes % 5 % Eosinophils % 0 % Basophils % 1 % Neutrophils # 13.4 H (1.3-7.7) k/uL Lymphocytes # 3.5 (1.0-4.8) k/uL Monocytes # 1.0 (0-1.0) k/uL Eosinophils # 0.1 (0-0.7) k/uL Basophils # 0.1 (0-0.2) k/uL PT 10.3 (9.0-12.0) sec INR 1.0 (<1.2) APTT 23.7 (22.0-30.0) sec Sodium 134 L (137-145) mmol/L Potassium 4.4 (3.5-5.1) mmol/L Chloride 101 (98-107) mmol/L Carbon Dioxide 20 L (22-30) mmol/L Anion Gap 13 mmol/L BUN 33 H (9-20) mg/dL Creatinine 2.19 H (0.66-1.25) mg/dL Est GFR (CKD-EPI)AfAm 39 (>60 ml/min/1.73 sqM) Est GFR (CKD-EPI)NonAf 34 (>60 ml/min/1.73 sqM) Glucose 124 H (74-99) mg/dL Plasma Lactic Acid Jonathan (0.7-2.0) mmol/L Calcium 10.6 H (8.4-10.2) mg/dL Total Bilirubin 0.3 (0.2-1.3) mg/dL AST 40 (17-59) U/L ALT 37 (4-49) U/L Alkaline Phosphatase 44 (38-126) U/L Troponin I (0.000-0.034) ng/mL Total Protein 7.1 (6.3-8.2) g/dL Albumin 4.5 (3.5-5.0) g/dL Amylase 50 (30-110) U/L Lipase 304 H (23-300) U/L Urine Color Urine Appearance (Clear) Urine pH (5.0-8.0) Ur Specific [place] (1.001-1.035) Urine Protein (Negative) Urine Glucose (UA) (Negative) Urine Ketones (Negative) Urine Blood (Negative) Urine Nitrite (Negative) Urine Bilirubin (Negative) Urine Urobilinogen (<2.0) mg/dL Ur Leukocyte Esterase (Negative) Urine RBC (0-5) /hpf Urine WBC (0-5) /hpf Ur Squamous Epith Cells (0-4) /hpf Urine Bacteria (None) /hpf Hyaline Casts (0-2) /lpf Urine Mucus (None) /hpf 09/12/20 09/12/20 09/12/20 Range/Units 20:50 20:50 23:12 WBC (3.8-10.6) k/uL RBC (4.30-5.90) m/uL Hgb (13.0-17.5) gm/dL Hct (39.0-53.0) % MCV (80.0-100.0) fL MCH (25.0-35.0) pg MCHC (31.0-37.0) g/dL RDW (11.5-15.5) % Plt Count (150-450) k/uL MPV Neutrophils % % Lymphocytes % % Monocytes % % Eosinophils % % Basophils % % Neutrophils # (1.3-7.7) k/uL Lymphocytes # (1.0-4.8) k/uL Monocytes # (0-1.0) k/uL Eosinophils # (0-0.7) k/uL Basophils # (0-0.2) k/uL PT (9.0-12.0) sec INR (<1.2) APTT (22.0-30.0) sec Sodium (137-145) mmol/L Potassium (3.5-5.1) mmol/L Chloride (98-107) mmol/L Carbon Dioxide (22-30) mmol/L Anion Gap mmol/L BUN (9-20) mg/dL Creatinine (0.66-1.25) mg/dL Est GFR (CKD-EPI)AfAm (>60 ml/min/1.73 sqM) Est GFR (CKD-EPI)NonAf (>60 ml/min/1.73 sqM) Glucose (74-99) mg/dL Plasma Lactic Acid Jonathan 1.1 (0.7-2.0) mmol/L Calcium (8.4-10.2) mg/dL Total Bilirubin (0.2-1.3) mg/dL AST (17-59) U/L ALT (4-49) U/L Alkaline Phosphatase (38-126) U/L Troponin I 0.015 (0.000-0.034) ng/mL Total Protein (6.3-8.2) g/dL Albumin (3.5-5.0) g/dL Amylase (30-110) U/L Lipase (23-300) U/L Urine Color Yellow Urine Appearance Clear (Clear) Urine pH 5.5 (5.0-8.0) Ur Specific [place] 1.020 (1.001-1.035) Urine Protein 3+ H (Negative) Urine Glucose (UA) Negative (Negative) Urine Ketones Negative (Negative) Urine Blood Small H (Negative) Urine Nitrite Negative (Negative) Urine Bilirubin Negative (Negative) Urine Urobilinogen <2.0 (<2.0) mg/dL Ur Leukocyte Esterase Negative (Negative) Urine RBC 9 H (0-5) /hpf Urine WBC 2 (0-5) /hpf Ur Squamous Epith Cells <1 (0-4) /hpf Urine Bacteria Rare H (None) /hpf Hyaline Casts 23 H (0-2) /lpf Urine Mucus Few H (None) /hpf - EKG Data EKG Comments: Sinus tach with occasional PVCs, otherwise normal ECG. No signs of acute ST segment elevation. Ventricular rate 110, FL interval 158, QT 330. Disposition Clinical Impression: Small bowel obstruction, SAURAV (acute kidney injury), Single kidney Disposition: ADMITTED IP TO THIS HOSP Condition: Stable Is patient prescribed a controlled substance at d/c from ED?: No Referrals: [facility] [Primary Care Provider] - 1-2 days Decision Date: 09/13/20 Decision Time: 00:06
[2020-09-12 21:41] LABS: Basophils # (A) 0.1 k/uL (0-0.2); Basophils % (A) 1 %; Eosinophils # (A) 0.1 k/uL (0-0.7); Eosinophils % (A) 0 %; HCT 42.4 % (39.0-53.0); HGB 13.7 gm/dL (13.0-17.5); Lymphocytes # (A) 3.5 k/uL (1.0-4.8); Lymphocytes % (A) 19 %; MCH 28.2 pg (25.0-35.0); MCHC 32.2 g/dL (31.0-37.0); MCV 87.6 fL (80.0-100.0); Mean Platelet Volume 6.9; Monocytes % (A) 5 %; Neutrophils # (A) 13.4 k/uL (1.3-7.7); Neutrophils % (A) 73 %; Platelet Count 540 k/uL (150-450); RBC 4.85 m/uL (4.30-5.90); RDW 13.8 % (11.5-15.5); WBC 18.4 k/uL (3.8-10.6)
--- NOTE | 2020-09-12 21:47 | XR ---
EXAMINATION TYPE: XR chest 2V DATE OF EXAM: 09/12/2020 COMPARISON: 08/02/2020 HISTORY: Chest pain Heart and mediastinum are normal. Lungs are clear. Diaphragm is normal. Bony thorax appears normal. IMPRESSION: Normal chest. No change.
[2020-09-12 21:53] LABS: Partial Thromboplastin Time 23.7 sec (22.0-30.0); Prothrombin Time 10.3 sec (9.0-12.0)
[2020-09-12 22:00] LABS: Albumin 4.5 g/dL (3.5-5.0); Calcium 10.6 mg/dL (8.4-10.2); Potassium 4.4 mmol/L (3.5-5.1); Total Bilirubin 0.3 mg/dL (0.2-1.3); Total Protein 7.1 g/dL (6.3-8.2)
[2020-09-12 23:52] LABS: Appearance,Urine Clear (Clear); Bacteria,Urine Rare /hpf; Bilirubin,Urine Negative (Negative); Blood,Urine Small (Negative); Color,Urine Yellow; Glucose,Urine (UA) Negative (Negative); Hyaline Casts,Urine 23 /lpf (0-2); Ketones,Urine Negative (Negative); Leukocyte Esterase,Urine Negative (Negative); Mucus,Urine Few /hpf; Nitrite,Urine Negative (Negative); PH, Urine 5.5 (5.0-8.0); Protein,Urine 3+ (Negative); RBC,Urine 9 /hpf (0-5); Squamous Epithelial Cell,Urine <1 /hpf (0-4); Urobilinogen,Urine <2.0 mg/dL (<2.0); WBC,Urine 2 /hpf (0-5)
--- NOTE | 2020-09-12 23:55 | CT ---
EXAMINATION TYPE: CT abdomen pelvis wo con DATE OF EXAM: 09/12/2020 COMPARISON: 08/16/2020 HISTORY: Epigastric and RUQ pain CT DLP: 2230 mGycm Automated exposure control for dose reduction was used. Images obtained from the diaphragm to the floor the pelvis without contrast. Lung bases are clear. There is no pleural effusion. Heart size is normal. There is no pericardial eff usion. Liver spleen pancreas stomach appear intact. The bile ducts are not dilated. There are clips f rom cholecystectomy. There are clips at the gastric fundus. There is no adrenal mass. There are multiple surgical clips from left nephrectomy. Right kidney shows normal size. There is no hydronephrosis. There is no retroperitoneal adenopathy. Bladder distends sm oothly. There is no inguinal hernia. There is no free fluid in the pelvis. Appendix is posterior and inferior and appears normal. There are some dilated small bowel loops in the midabdomen up to 3.5 cm. The distal ileum is not dilated. Transition point not identified. The lumbar vertebra appear intact. There is no compression fracture. Bony pelvis is intact. The hip j oints are intact. There is no hip dysplasia. IMPRESSION: There are some dilated loops of small bowel in the mid abdomen suggestive of partial mechanical obstr uction that is a change compared to recent exam. Left nephrectomy.
[2020-09-13] MEDS ORDERED: ONDANSETRON 4 MG/2 ML VIAL IVP PRN
[2020-09-13] MEDS ORDERED: NALOXONE 0.4 MG/ML 1 ML VIAL IV PRN
[2020-09-13] MEDS: HYDROmorphone 1 MG/ML 1 ML SYRINGE IVP PRN ×7 (01:27→19:49)
[2020-09-13] MEDS: SODIUM CHLORIDE 0.9% 1,000 ML IV SCH ×3 (07:22→10:50)
[2020-09-13] MEDS ORDERED: hydroCHLOROthiazide 12.5 MG CAP PO SCH (10:30)
--- NOTE | 2020-09-13 10:54 | P.HPIM ---
History of Present Illness H&P Date: 09/13/20 HISTORY OF PRESENT ILLNESS This is a 49-year-old male patient of [facility], patient follows with Rosalia Gallagher NP, with past medical history of hypertension, hyperlipidemia, diabetes mellitus type 2, gastroesophageal reflux disease, chronic back pain, SVT, renal cell cancer, peptic ulcer disease, generalized anxiety disorder. Patient is currently residing in [facility]. Patient will not provide details of his incarceration. Patient complains of epigastric pain that started at 5 PM yesterday. He states he tried to walk it off but that did not seem to help. He denies any nausea or vomiting. Patient states he had 3 bowel movements yesterday, 2 in the morning and 1 in the afternoon. He is not passing gas. He denies any blood in the stool. He has history of multiple abdominal surgeries. Patient was brought into [facility] emergency center for evaluation. Patient was found to be afebrile, initial heart rate 121 with repe at 101, blood pressure 119/86, pulse ox 97% on room air. Blood work revealed WBC 18.4, hemoglobin 13.7, platelets 540. INR 1.0. Sodium 134, potassium 4.4, chloride 101, CO2 20, BUN 33 creatinine 2.19. Baseline creatinine 1.5/1.6. Liver function tests were normal. Troponin was normal. Lipase 305. Urinalysis clear with nitrate and leuk on esterase negative. Small amount of blood. Rare bacteria. Chest x-ray normal. CAT scan of the abdomen and pelvis without contrast revealed dilated loops of small bowel in the mid abdomen suggestive partial obstruction. Patient has been admitted and consult in place with Dr. Fernandez. Patient is seen today in the emergency center while waiting for [facility] bed. REVIEW OF SYSTEMS Constitutional: No fever, no chills, no night sweats. No weight change. No weakness, fatigue or lethargy. No daytime sleepiness. EENT: No headache. No blurred vision or double vision, no loss of vision. No loss of Hearing, no ringing in the ears, no dizziness. No nasal drainage or congestion. No epistaxis. No sore throat. Lungs: No shortness of breath, cough, no sputum production. No wheezing. Cardiovascular: No chest pain, no lower extremity edema. No palpitations. No paroxysmal nocturnal dyspnea. No orthopnea. No lightheadedness or dizziness. No syncopal episodes. Abdominal: Reports abdominal pain. No nausea, vomiting. No diarrhea. Reports constipation. No bloody or tarry stools. Reports loss of appetite. Genitourinary: No dysuria, increased frequency, urgency. No urinary retention. Musculoskeletal: No myalgias. No muscle weakness, no gait dysfunction, no frequent falls. No back pain. No neck pain. Integumentary: No wounds, no lesions. No rash or pruritus. No unusual bruising. No change in hair or nails. Neurologic: No aphasia. No facial droop. No change in mentation. No head injury. No headache. No paralysis. No paresthesia. Psychiatric: No depression. No anxiety. No mood swings. Endocrine: No abnormal blood sugars. No weight change. MEDICAL HISTORY Renal cell cancer Duodenal ulcer Hiatal hernia Hypertension Hyperlipidemia Diabetes mellitus type 2 Gastroesophageal reflux disease Chronic back pain SVT Borderline personality Generalized anxiety disorder SURGICAL HISTORY Hiatal hernia repair in 2001 Peptic ulcer repair in 2003 Left kidney resection in 2003 Cholecystectomy 2017 SOCIAL HISTORY Patient has been a smoker of 2 packs per day since he was 14 years of age. He denies any marijuana use for greater than 1 year. No illicit drug use. He denies any alcohol use. Patient does have a nebulizer. FAMILY HISTORY Father at age 50 from lung cancer. Mother is alive with no major medical problems. Patient states that all his siblings have anxiety and panic issues. He has 1 sister with no major medical problems. Patient has 1 brother that has adrenal gland problem. Patient is one daughter with autism. PHYSICAL EXAMINATION Gen: This is an obese 49-year-old male. Patient is resting of the ear stretcher and appears to be in no acute distress. 2 HEENT: Head is atraumatic, normocephalic. Pupils equal, round. Sclerae is anic teric. NECK: Supple. No JVD. No lymphadenopathy. No thyromegaly. LUNGS: Clear to auscultation. No wheezes or rhonchi. No intercostal retractions. HEART: Regular rate and rhythm. No murmur. ABDOMEN: Soft. Bowel sounds are present. No masses. Epigastric tenderness. EXTREMITIES: No pedal edema. No calf tenderness. NEUROLOGICAL: Patient is awake, alert and oriented x3. Cranial nerves 2 through 12 are grossly intact. ASSESSMENT AND PLAN 1. Partial small bowel obstruction. Consult with Dr. Rebecca kendrick. Patient to start clear liquid diet. 2. Acute kidney injury. Patient is currently on IV fluids at 130 mL per hour which will be decreased to 75 mL/h, recheck renal function in the morning, avoid nephrotoxic agents. Hydrochlorothiazide will be held for today. 3. History of renal cell cancer, stable. 4. Hypertension. Hold hydrochlorothiazide today. Continue lisinopril 10 mg at bedtime, Lopressor 100 mg twice daily. 5. Hyperlipidemia. Continue fenofibrate 160 mg at bedtime. 6. Diabetes mellitus type 2. Continue glipizide 10 mg daily, metformin 1000 mg twice daily, NovoLog scale will be added. 7. Gastroesophageal reflux disease. Continue Protonix 40 mg daily. 8. Chronic back pain. 9. History of SVT. Continue Lopressor. 10. DVT prophylaxis. Heparin subcu. Patient will be admitted to the hospital for a minimum of 2 night stay. DISCHARGE PLAN Return To Care Home in the next 24-48 hours Impression and plan of care have been directed as dictated by the signing physician. Luly Coffey nurse practitioner acting as scribe for signing physician. Past Medical History Past Medical History: Atrial Fibrillation, Cancer, COPD, Diabetes Mellitus, GI Bleed, Hypertension Additional Past Medical History / Comment(s): RENAL CELL CA, DUODENAL ULCER, HIATAL HERNIA, BORDERLINE PERSONALITY DISORDER, PANIC EPISODES, ANXIETY, OCD, chronic back pain, chronic bronchitis History of Any Multi-Drug Resistant Organisms: None Reported Past Surgical History: Cholecystectomy, Hernia Repair Additional Past Surgical History / Comment(s): duodenal ulcer surgery, left kidney removal Past Anesthesia/Blood Transfusion Reactions: No Reported Reaction Past Psychological History: Anxiety, Bipolar Smoking Status: Current every day smoker Past Alcohol Use History: None Reported Past Drug Use History: None Reported - Past Family History Father Family Medical History: Cancer Additional Family Medical History / Comment(s): lung cancer Medications and Allergies Home Medications Medication Instructions Recorded Confirmed Type hydroCHLOROthiazide [Hydrodiuril] 12.5 mg PO DAILY 11/27/16 09/12/20 History Fenofibrate 160 mg PO HS 09/18/17 09/12/20 History Pantoprazole Sodium [Protonix] 40 mg PO DAILY 10/12/19 09/12/20 History lisinopriL [Zestril] 10 mg PO HS 10/12/19 09/12/20 History Albuterol Sulfate [Proair Hfa] 1 - 2 puff INHALATION RT-Q6H PRN 08/02/20 09/12/20 History metFORMIN HCL [Glucophage] 1,000 mg PO BID 08/02/20 09/12/20 History Magnesium Oxide [Mag-Ox] 400 mg PO DAILY 08/16/20 09/12/20 History Ciclesonide [Alvesco] 1 puff INHALATION RT-BID 09/12/20 09/12/20 History Metoprolol Tartrate [Lopressor] 100 mg PO BID 09/12/20 09/12/20 History glipiZIDE [Glucotrol] 10 mg PO DAILY 09/12/20 09/12/20 History Allergies Allergy/AdvReac Type Severity Reaction Status Date / Time Iodinated Contrast Media AdvReac KIDNEY Verified 09/12/20 22:59 [Iodinated Contrast- Oral and IV Dye] Physical Exam Vitals: Vital Signs Temp Pulse Pulse Resp BP BP Pulse Ox 09/13/20 08:00 97.9 F 78 16 136/89 96 09/13/20 05:59 99 19 116/69 98 09/13/20 02:40 101 H 19 121/71 97 09/12/20 20:22 98.1 F 121 H 20 119/86 97 Intake and Output 09/12/20 09/13/20 09/13/20 22:59 06:59 14:59 Other: Voiding Method Toilet Weight 127.006 kg Results CBC & Chem 7: 09/12/20 20:50 09/12/20 20:50 Labs: Abnormal Lab Results - Last 24 Hours (Table) 09/12/20 09/12/20 09/12/20 Range/Units 20:50 20:50 23:12 WBC 18.4 H (3.8-10.6) k/uL Plt Count 540 H (150-450) k/uL Neutrophils # 13.4 H (1.3-7.7) k/uL Sodium 134 L (137-145) mmol/L Carbon Dioxide 20 L (22-30) mmol/L BUN 33 H (9-20) mg/dL Creatinine 2.19 H (0.66-1.25) mg/dL Glucose 124 H (74-99) mg/dL Calcium 10.6 H (8.4-10.2) mg/dL Lipase 304 H (23-300) U/L Urine Protein 3+ H (Negative) Urine Blood Small H (Negative) Urine RBC 9 H (0-5) /hpf Urine Bacteria Rare H (None) /hpf Hyaline Casts 23 H (0-2) /lpf Urine Mucus Few H (None) /hpf
[2020-09-13] MEDS: PANTOPRAZOLE 40 MG TABLET PO SCH (11:15)
--- NOTE | 2020-09-13 11:36 | P.GSCN ---
History of Present Illness Consult date: 09/13/20 History of present illness: CHIEF COMPLAINT: Abdominal pain HISTORY OF PRESENT ILLNESS: This is a 49-year-old male with a known history of diabetes mellitus, hypertension, COPD, chronic back pain, renal cell carcinoma status post nephrectomy, OCD, bipolar, duodenal ulcer status post surgical repair, hiatal hernia repair and cholecystectomy. Patient recently hospitalized in July with possible partial small bowel obstruction. Patient returns to the hospital with complaints of similar pain as in July. He describes the pain as sharp located in the epigastric area at the top of his abdominal incision. He reports having a bowel movement yesterday. He reports symptoms came on suddenly yesterday evening after eating. He denies any flatus or nausea or vomiting. He had a computed tomography scan of the abdomen and pelvis that shows dilated loops of small bowel in the mid abdomen suggestive of a partial mechanical obstruction that is a change compared to recent exam. Also left nephrectomy. Patient denies any fever chills or sweats. He is currently residing at [facility]. Patient was seen and examined in the ER with Dr. Fernandez. PAST MEDICAL HISTORY: See list. PAST SURGICAL HISTORY: See list. MEDICATIONS: See list. ALLERGIES: See list. SOCIAL HISTORY: No illicit drug use. REVIEW OF SYSTEMS: CONSTITUTIONAL: Denies fever or chills. HEENT: Denies blurred vision, vision changes, or eye pain. Denies hemoptysis CARDIOVASCULAR: Denies chest pain or pressure. RESPIRATORY: No shortness of breath. GASTROINTESTINAL: See HPI for pertinent findings HEMATOLOGIC: Denies bleeding disorders. GENITOURINARY: Denies any blood in urine or increased urinary frequency. SKIN: Denies pruitis. Denies rash. PHYSICAL EXAM: VITAL SIGNS: Reviewed GENERAL: Well-developed in no acute distress. HEENT: No sclera icterus. Extraocular movements grossly intact. Moist buccal mucosa. Head is atraumatic, normocephalic. No nasal drainage. ABDOMEN: Soft. Nondistended. Epigastric upper abdominal tenderness at the top of patient's old incision. Old incision has healed NEUROLOGIC: Alert and oriented. Cranial nerves II through XII grossly intact. LABORATORY DATA: WBC is 18.4 hemoglobin 13.7 platelets are 540 INR 1.0 sodium 134 creatinine 2.19 lactic 1.1 LFTs normal Lipase 304 IMAGING: Computed tomography scan as stated above ASSESSMENT: 1. Partial mechanical small bowel obstruction possibly secondary to adhesions 2. Prior Abdominal surgeries PLAN: -No surgical intervention planned -Continue supportive care -Start patient on a full liquid diet -Continue pain medication as needed Thank you for this consultation Physician Building Rental Manager note has been reviewed by physician. Signing provider agrees with the documented findings, assessment, and plan of care. Past Medical History Past Medical History: Atrial Fibrillation, Cancer, COPD, Diabetes Mellitus, GI Bleed, Hypertension Additional Past Medical History / Comment(s): RENAL CELL CA, DUODENAL ULCER, HIATAL HERNIA, BORDERLINE PERSONALITY DISORDER, PANIC EPISODES, ANXIETY, OCD, chronic back pain, chronic bronchitis History of Any Multi-Drug Resistant Organisms: None Reported Past Surgical History: Cholecystectomy, Hernia Repair Additional Past Surgical History / Comment(s): duodenal ulcer surgery, left kidney removal Past Anesthesia/Blood Transfusion Reactions: No Reported Reaction Past Psychological History: Anxiety, Bipolar Additional Psychological History / Comment(s): OCD, borderline personality disorder Smoking Status: Current every day smoker Past Alcohol Use History: None Reported Additional Past Alcohol Use History / Comment(s): smoking 30 years 1- 1 1/2ppd Past Drug Use History: None Reported Additional Drug Use History / Comment(s): occasional marijuana - Past Family History Father Family Medical History: Cancer Additional Family Medical History / Comment(s): lung cancer Medications and Allergies Home Medications Medication Instructions Recorded Confirmed Type hydroCHLOROthiazide [Hydrodiuril] 12.5 mg PO DAILY 11/27/16 09/12/20 History Fenofibrate 160 mg PO HS 09/18/17 09/12/20 History Pantoprazole Sodium [Protonix] 40 mg PO DAILY 10/12/19 09/12/20 History lisinopriL [Zestril] 10 mg PO HS 10/12/19 09/12/20 History Albuterol Sulfate [Proair Hfa] 1 - 2 puff INHALATION RT-Q6H PRN 08/02/20 09/12/20 History metFORMIN HCL [Glucophage] 1,000 mg PO BID 08/02/20 09/12/20 History Magnesium Oxide [Mag-Ox] 400 mg PO DAILY 08/16/20 09/12/20 History Ciclesonide [Alvesco] 1 puff INHALATION RT-BID 09/12/20 09/12/20 History Metoprolol Tartrate [Lopressor] 100 mg PO BID 09/12/20 09/12/20 History glipiZIDE [Glucotrol] 10 mg PO DAILY 09/12/20 09/12/20 History Allergies Allergy/AdvReac Type Severity Reaction Status Date / Time Iodinated Contrast Media AdvReac KIDNEY Verified 09/12/20 22:59 [Iodinated Contrast- Oral and IV Dye] Surgical - Exam Vital Signs Temp Pulse Resp BP Pulse Ox 98.1 F 121 H 20 119/86 97 09/12/20 20:22 09/12/20 20:22 09/12/20 20:22 09/12/20 20:22 09/12/20 20:22 Results - Labs 09/12/20 20:50 09/12/20 20:50 Abnormal Lab Results - Last 24 Hours (Table) 09/12/20 09/12/20 09/12/20 Range/Units 20:50 20:50 23:12 WBC 18.4 H (3.8-10.6) k/uL Plt Count 540 H (150-450) k/uL Neutrophils # 13.4 H (1.3-7.7) k/uL Sodium 134 L (137-145) mmol/L Carbon Dioxide 20 L (22-30) mmol/L BUN 33 H (9-20) mg/dL Creatinine 2.19 H (0.66-1.25) mg/dL Glucose 124 H (74-99) mg/dL Calcium 10.6 H (8.4-10.2) mg/dL Lipase 304 H (23-300) U/L Urine Protein 3+ H (Negative) Urine Blood Small H (Negative) Urine RBC 9 H (0-5) /hpf Urine Bacteria Rare H (None) /hpf Hyaline Casts 23 H (0-2) /lpf Urine Mucus Few H (None) /hpf Diabetes panel 09/12/20 Range/Units 20:50 Sodium 134 L (137-145) mmol/L Potassium 4.4 (3.5-5.1) mmol/L Chloride 101 (98-107) mmol/L Carbon Dioxide 20 L (22-30) mmol/L BUN 33 H (9-20) mg/dL Creatinine 2.19 H (0.66-1.25) mg/dL Glucose 124 H (74-99) mg/dL Calcium 10.6 H (8.4-10.2) mg/dL AST 40 (17-59) U/L ALT 37 (4-49) U/L Alkaline Phosphatase 44 (38-126) U/L Total Protein 7.1 (6.3-8.2) g/dL Albumin 4.5 (3.5-5.0) g/dL Calcium panel 09/12/20 Range/Units 20:50 Calcium 10.6 H (8.4-10.2) mg/dL Albumin 4.5 (3.5-5.0) g/dL Pituitary panel 09/12/20 Range/Units 20:50 Sodium 134 L (137-145) mmol/L Potassium 4.4 (3.5-5.1) mmol/L Chloride 101 (98-107) mmol/L Carbon Dioxide 20 L (22-30) mmol/L BUN 33 H (9-20) mg/dL Creatinine 2.19 H (0.66-1.25) mg/dL Glucose 124 H (74-99) mg/dL Calcium 10.6 H (8.4-10.2) mg/dL Adrenal panel 09/12/20 Range/Units 20:50 Sodium 134 L (137-145) mmol/L Potassium 4.4 (3.5-5.1) mmol/L Chloride 101 (98-107) mmol/L Carbon Dioxide 20 L (22-30) mmol/L BUN 33 H (9-20) mg/dL Creatinine 2.19 H (0.66-1.25) mg/dL Glucose 124 H (74-99) mg/dL Calcium 10.6 H (8.4-10.2) mg/dL Total Bilirubin 0.3 (0.2-1.3) mg/dL AST 40 (17-59) U/L ALT 37 (4-49) U/L Alkaline Phosphatase 44 (38-126) U/L Total Protein 7.1 (6.3-8.2) g/dL Albumin 4.5 (3.5-5.0) g/dL
[2020-09-13] MEDS: ALBUTEROL HFA INHALER INHALATION PRN (14:49)
[2020-09-13] MEDS: MAG HYDROX/AL HYDROX/SIMETH 30 ML CUP PO PRN (17:18)
[2020-09-13] MEDS: INSULIN ASPART (NovoLOG) 100 UNIT/ML VIAL SQ SCH ×2 (17:45→19:55)
[2020-09-13 17:47] LABS: Glucose,Whole Blood 136 mg/dL (75-99)
[2020-09-13] MEDS: NON FORMULARY DRUG (Ciclesonide [Alvesco] 6.1 GM Hfa.Aer.Ad) INHALATION SCH (18:30)
[2020-09-13] MEDS: lisinopriL 10 MG TAB PO SCH (19:45)
[2020-09-13] MEDS: METOPROLOL TARTRATE 50 MG TAB PO SCH (19:47)
[2020-09-13 19:53] LABS: Glucose,Whole Blood 170 mg/dL (75-99)
[2020-09-13] MEDS: metFORMIN 500 MG TAB PO SCH (19:55)
[2020-09-13] MEDS ORDERED: FENOFIBRATE 160 MG TAB PO SCH (21:00)
[2020-09-13 21:17] LABS: Glucose,Whole Blood 186 mg/dL (75-99)
[2020-09-14 05:57] LABS: Glucose,Whole Blood 173 mg/dL (75-99)
[2020-09-14 07:12] LABS: Glucose,Whole Blood 167 mg/dL (75-99)
[2020-09-14] MEDS: HYDROmorphone 1 MG/ML 1 ML SYRINGE IVP PRN ×6 (08:17→23:32)
[2020-09-14] MEDS: SODIUM CHLORIDE 0.9% 1,000 ML IV SCH ×3 (08:20→22:05)
[2020-09-14] MEDS ORDERED: glipiZIDE 10 MG TAB PO SCH (09:00)
[2020-09-14] MEDS: INSULIN ASPART (NovoLOG) 100 UNIT/ML VIAL SQ SCH ×4 (09:51→22:07)
[2020-09-14] MEDS: NON FORMULARY DRUG (Ciclesonide [Alvesco] 6.1 GM Hfa.Aer.Ad) INHALATION SCH ×2 (09:52→22:07)
[2020-09-14] MEDS: MAGNESIUM OXIDE 400 MG TAB PO SCH (09:54)
[2020-09-14] MEDS: PANTOPRAZOLE 40 MG/10 ML VIAL IVP SCH (09:57)
[2020-09-14] MEDS: METOPROLOL TARTRATE 50 MG TAB PO SCH ×2 (09:57→20:10)
[2020-09-14 10:04] LABS: African American GFR (CKD) 66 (>60 ml/min/1.73 sqM); Anion Gap 12 mmol/L; Blood Urea Nitrogen 25 mg/dL (9-20); Calcium 9.5 mg/dL (8.4-10.2); Carbon Dioxide 22 mmol/L (22-30); Chloride 105 mmol/L (98-107); Glucose 188 mg/dL (74-99); Non-African American GFR(CKD) 58 (>60 ml/min/1.73 sqM); Potassium 4.5 mmol/L (3.5-5.1); Sodium 139 mmol/L (137-145)
[2020-09-14] MEDS: metFORMIN 500 MG TAB PO SCH (10:05)
[2020-09-14] MEDS: PANTOPRAZOLE 40 MG TABLET PO SCH (10:05)
--- NOTE | 2020-09-14 10:07 | XR ---
EXAMINATION TYPE: XR abdomen 2V DATE OF EXAM: 09/14/2020 COMPARISON: 08/15/2020 INDICATION: Small bowel obstruction vomiting abdominal pain TECHNIQUE: Frontal view abdomen supine and upright views FINDINGS: There is within the colon. A large stomach bubble present. In the upright view air-fluid levels are w ithin the stomach and within small bowel loops within the midabdomen. Minimal bowel gas is distal to the air-fluid level within the small bowel. Small bowel appears dilated measuring 6 cm in the supine view. Findings can be compatible with partial or early complete obstruction. Psoas margins are not well visualized. No free air is evident No organomegaly is present. IMPRESSION: 1. Findings which can be compatible with high-grade partial or early complete small bowel obstruction . Follow-up is recommended. Findings are progressive from the comparison study.
[2020-09-14 10:21] LABS: Basophils % (A) 0 %; Eosinophils % (A) 0 %; HCT 44.9 % (39.0-53.0); HGB 14.6 gm/dL (13.0-17.5); Lymphocytes # (A) 0.9 k/uL (1.0-4.8); Lymphocytes % (A) 4 %; MCH 29.1 pg (25.0-35.0); MCHC 32.5 g/dL (31.0-37.0); MCV 89.7 fL (80.0-100.0); Mean Platelet Volume 9.1; Monocytes # (A) 1.2 k/uL (0-1.0); Monocytes % (A) 6 %; Neutrophils % (A) 89 %; Platelet Count 449 k/uL (150-450); RDW 13.3 % (11.5-15.5); WBC 21.3 k/uL (3.8-10.6)
[2020-09-14] MEDS ORDERED: ENALAPRILAT 1.25 MG/ML 1 ML VIAL IVP PRN (10:45)
--- NOTE | 2020-09-14 10:48 | P.PN ---
Subjective Progress Note Date: 09/14/20 HISTORY OF PRESENT ILLNESS This is a 49-year-old male patient of [facility], patient follows with Rosalia Gallagher LEAD JAVA PROGRAMMER, with past medical history of hypertension, hyperlipidemia, diabetes mellitus type 2, gastroesophageal reflux disease, chronic back pain, SVT, renal cell cancer, peptic ulcer disease, generalized anxiety disorder. Patient is currently residing in [facility]. Patient will not provide details of his incarceration. Patient complains of epigastric pain that started at 5 PM yesterday. He states he tried to walk it off but that did not seem to help. He denies any nausea or vomiting. Patient states he had 3 bowel movements yesterday, 2 in the morning and 1 in the afternoon. He is not passing gas. He denies any blood in the stool. He has history of multiple abdominal surgeries. Patient was brought into [facility] emergency center for evaluation. Patient was found to be afebrile, initial heart rate 121 with repeat 101, blood pressure 119/86, pulse ox 97% on room air. Blood work revealed WBC 18.4, hemoglobin 13.7, platelets 540. INR 1.0. Sodium 134, potassium 4.4, chloride 101, CO2 20, BUN 33 creatinine 2.19. Baseline creatinine 1.5/1.6. Liver function tests were normal. Troponin was normal. Lipase 305. Urinalysis clear with nitrate and leuk on esterase negative. Small amount of blood. Rare bacteria. Chest x-ray normal. CAT scan of the abdomen and pelvis without contrast revealed dilated loops of small bowel in the mid abdomen suggestive partial obstruction. Patient has been admitted and consult in place with Dr. Fernandez. Patient is seen today in the emergency center while waiting for [facility] bed. 09/14: Patient's diet was advanced yesterday by Dr. Fernandez to clear liquids and patient states as soon as he had eaten he developed significant abdominal pain. Is not passing gas and has not had a bowel movement. Patient has been placed nothing by mouth and Zofran increased to every 6 hours, abdominal x-rays ordered stat which reveals high grade partial or early complete small bowel obstruction. Patient is afebrile, heart rate 95, blood pressure 173/96, pulse ox 90% on room air. Repeat blood work reveals WBC of 21.3, hemoglobin 14.6, platelet count 449. Electrolytes are normal. BUN 25 and creatinine 1.42. Blood sugars are running between 167 and 188. REVIEW OF SYSTEMS Constitutional: No fever, no chills, no night sweats. No weight change. No we akness, fatigue or lethargy. No daytime sleepiness. EENT: No headache. No blurred vision or double vision, no loss of vision. No loss of Hearing, no ringing in the ears, no dizziness. No nasal drainage or congestion. No epistaxis. No sore throat. Lungs: No shortness of breath, cough, no sputum production. No wheezing. Cardiovascular: No chest pain, no lower extremity edema. No palpitations. No paroxysmal nocturnal dyspnea. No orthopnea. No lightheadedness or dizziness. No syncopal episodes. Abdominal: Reports abdominal pain. Reports nausea, no vomiting. No diarrhea. Reports constipation. No bloody or tarry stools. Reports loss of appetite. Genitourinary: No dysuria, increased frequency, urgency. No urinary retention. Musculoskeletal: No myalgias. No muscle weakness, no gait dysfunction, no frequent falls. No back pain. No neck pain. Integumentary: No wounds, no lesions. No rash or pruritus. No unusual bruising. No change in hair or nails. Neurologic: No aphasia. No facial droop. No change in mentation. No head injury. No headache. No paralysis. No paresthesia. Psychiatric: No depression. No anxiety. No mood swings. Endocrine: No abnormal blood sugars. No weight change. PHYSICAL EXAMINATION Gen: This is an obese 49-year-old male. Patient is resting in bed and appears to be in no acute distress. HEENT: Head is atraumatic, normocephalic. Pupils equal, round. Sclerae is anicteric. NECK: Supple. No JVD. No lymphadenopathy. No thyromegaly. LUNGS: Clear to auscultation. No wheezes or rhonchi. No intercostal r etractions. HEART: Regular rate and rhythm. No murmur. ABDOMEN: No Bowel sounds present. No masses. Generalized abdominal tenderness in the mid area. EXTREMITIES: No pedal edema. No calf tenderness. NEUROLOGICAL: Patient is awake, alert and oriented x3. Cranial nerves 2 through 12 are grossly intact. ASSESSMENT AND PLAN 1. Partial small bowel obstruction. Consult with Dr. Rebecca kendrick. Patient made nothing by mouth except for a few meds and ice chips. 2. Acute kidney injury. Patient is on IV fluids at d to 75 mL/h, recheck renal function in the morning, avoid nephrotoxic agents. Hydrochlorothiazide will be held for today. 3. History of renal cell cancer, stable. 4. Hypertension. Hold hydrochlorothiazide today. Continue lisinopril 10 mg at bedtime, Lopressor 100 mg twice daily. Hydralazine IV will be added for blood pressure control. 5. Hyperlipidemia. Continue fenofibrate 160 mg at bedtime. 6. Diabetes mellitus type 2. Hold glipizide 10 mg daily, metformin 1000 mg twice daily, continue NovoLog scale. 7. Gastroesophageal reflux disease. Continue Protonix 40 mg daily. 8. Chronic back pain. 9. History of SVT. Continue Lopressor. 10. DVT prophylaxis. Heparin subcu. DISCHARGE PLAN Return To Nursing Home Impression and plan of care have been directed as dictated by the signing physician. Luly Coffey nurse practitioner acting as scribe for signing physician. Objective - Vital Signs Vital signs: Vital Signs Temp 98.1 F 09/14/20 02:00 Pulse 95 09/14/20 02:00 Resp 16 09/14/20 02:00 BP 173/96 09/14/20 02:00 Pulse Ox 98 09/14/20 02:00 Intake & Output 09/13/20 09/14/20 09/14/20 18:59 06:59 18:59 Weight 127.006 kg Other: Voiding Method Urinal # Voids 3 2 - Labs CBC & Chem 7: 09/14/20 08:20 09/14/20 08:20 Labs: Abnormal Lab Results - Last 24 Hours (Table) 09/13/20 09/13/20 09/13/20 Range/Units 17:43 19:49 21:15 POC Glucose (mg/dL) 136 H 170 H 186 H (75-99) mg/dL 09/14/20 09/14/20 Range/Units 01:27 07:01 POC Glucose (mg/dL) 173 H 167 H (75-99) mg/dL
[2020-09-14 11:58] LABS: Glucose,Whole Blood 169 mg/dL (75-99)
[2020-09-14] MEDS: MAG HYDROX/AL HYDROX/SIMETH 30 ML CUP PO PRN (12:54)
[2020-09-14] MEDS ORDERED: HYDROmorphone 2 MG TAB PO PRN (12:56)
[2020-09-14] MEDS ORDERED: ACETAMINOPHEN IV (For NPO) 1,000 MG in EMPTY BAG 1 BAG IVPB ONE (12:57)
--- NOTE | 2020-09-14 14:38 | P.PN ---
<Ami Toscano - Last Filed: 09/14/20 14:31> Subjective Progress Note Date: 09/14/20 CHIEF COMPLAINT: Abdominal pain HISTORY OF PRESENT ILLNESS: Patient is being followed for a partial small bowel obstruction. He reports increase in abdominal distention and bloating. He has been having nausea. no vomiting. His last bowel movement was 2 days ago. He denies any flatus. He is currently nothing by mouth. Abdominal x-ray with findings compatible with high-grade partial or early complete small bowel obstruction. Afebrile. WBC is up from 18.4-21.3 creatinine is down from 2.19- 1.4 to PHYSICAL EXAM: VITAL SIGNS: Reviewed. GENERAL: Well-developed in no acute distress. HEENT: No sclera icterus. Extraocular movements grossly intact. Moist buccal mucosa. Head is atraumatic, normocephalic. ABDOMEN: Soft. Distended. Epigastric tenderness NEUROLOGIC: Alert and oriented. Cranial nerves II through XII grossly intact. ASSESSMENT: 1. High-grade partial or early complete small bowel obstruction PLAN: -Place NG tube for decompression -Keep patient nothing by mouth -Continue pain medication as needed -Continue GI prophylaxis Protonix and DVT prophylaxis subcu heparin Physician Senior Oracle Soa Developer note has been reviewed by physician. Signing provider agrees with the documented findings, assessment, and plan of care. Objective - Vital Signs Vital signs: Vital Signs Temp 97.4 F L 09/14/20 11:10 Pulse 74 09/14/20 11:10 Resp 16 09/14/20 11:10 BP 167/96 09/14/20 11:10 Pulse Ox 98 09/14/20 11:10 Intake & Output 09/13/20 09/14/20 09/14/20 18:59 06:59 18:59 Weight 127.006 kg Other: Voiding Method Urinal Urinal # Voids 3 2 - Labs CBC & Chem 7: 09/14/20 08:20 09/14/20 08:20 Labs: Abnormal Lab Results - Last 24 Hours (Table) 09/13/20 09/13/20 09/13/20 Range/Units 17:43 19:49 21:15 WBC (3.8-10.6) k/uL Neutrophils # (1.3-7.7) k/uL Lymphocytes # (1.0-4.8) k/uL Monocytes # (0-1.0) k/uL BUN (9-20) mg/dL Creatinine (0.66-1.25) mg/dL Glucose (74-99) mg/dL POC Glucose (mg/dL) 136 H 170 H 186 H (75-99) mg/dL 09/14/20 09/14/20 09/14/20 Range/Units 01:27 07:01 08:20 WBC 21.3 H (3.8-10.6) k/uL Neutrophils # 19.0 H (1.3-7.7) k/uL Lymphocytes # 0.9 L (1.0-4.8) k/uL Monocytes # 1.2 H (0-1.0) k/uL BUN (9-20) mg/dL Creatinine (0.66-1.25) mg/dL Glucose (74-99) mg/dL POC Glucose (mg/dL) 173 H 167 H (75-99) mg/dL 09/14/20 09/14/20 Range/Units 08:20 11:52 WBC (3.8-10.6) k/uL Neutrophils # (1.3-7.7) k/uL Lymphocytes # (1.0-4.8) k/uL Monocytes # (0-1.0) k/uL BUN 25 H (9-20) mg/dL Creatinine 1.42 H (0.66-1.25) mg/dL Glucose 188 H (74-99) mg/dL POC Glucose (mg/dL) 169 H (75-99) mg/dL <Dax Wren - Last Filed: 09/14/20 19:05> Subjective As above. Patient with increased abdominal bloating today. Said his pain was worse 2. His white blood cell count did increase. X-ray showed significant gastric distention. Nasogastric tube was placed with high output. Patient's discomfort improved. We'll repeat abdominal x-rays tomorrow. Keep nasogastric tube to suction. Objective - Vital Signs Vital signs: Vital Signs Temp 97.4 F L 09/14/20 11:10 Pulse 74 09/14/20 11:10 Resp 16 09/14/20 11:10 BP 167/96 09/14/20 11:10 Pulse Ox 98 09/14/20 11:10 Intake & Output 09/14/20 09/14/20 09/15/20 06:59 18:59 06:59 Intake Total 900 Output Total 2700 Balance -1800 Intake: Intake, IV Titration 900 Amount Sodium Chloride 0.9% 1, 900 000 ml @ 75 mls/hr IV . [id number] [facility] Rx#:[id number] Oral 0 Output: Gastric Drainage 2700 Other: Voiding Method Urinal Urinal # Voids 2 2 - Labs CBC & Chem 7: 09/14/20 08:20 09/14/20 08:20 Labs: Abnormal Lab Results - Last 24 Hours (Table) 09/13/20 09/13/20 09/14/20 Range/Units 19:49 21:15 01:27 WBC (3.8-10.6) k/uL Neutrophils # (1.3-7.7) k/uL Lymphocytes # (1.0-4.8) k/uL Monocytes # (0-1.0) k/uL BUN (9-20) mg/dL Creatinine (0.66-1.25) mg/dL Glucose (74-99) mg/dL POC Glucose (mg/dL) 170 H 186 H 173 H (75-99) mg/dL 09/14/20 09/14/20 09/14/20 Range/Units 07:01 08:20 08:20 WBC 21.3 H (3.8-10.6) k/uL Neutrophils # 19.0 H (1.3-7.7) k/uL Lymphocytes # 0.9 L (1.0-4.8) k/uL Monocytes # 1.2 H (0-1.0) k/uL BUN 25 H (9-20) mg/dL Creatinine 1.42 H (0.66-1.25) mg/dL Glucose 188 H (74-99) mg/dL POC Glucose (mg/dL) 167 H (75-99) mg/dL 09/14/20 09/14/20 Range/Units 11:52 17:07 WBC (3.8-10.6) k/uL Neutrophils # (1.3-7.7) k/uL Lymphocytes # (1.0-4.8) k/uL Monocytes # (0-1.0) k/uL BUN (9-20) mg/dL Creatinine (0.66-1.25) mg/dL Glucose (74-99) mg/dL POC Glucose (mg/dL) 169 H 124 H (75-99) mg/dL
[2020-09-14 17:09] LABS: Glucose,Whole Blood 124 mg/dL (75-99)
[2020-09-14] MEDS: ALBUTEROL HFA INHALER INHALATION PRN (19:59)
[2020-09-14] MEDS: lisinopriL 10 MG TAB PO SCH (20:11)
[2020-09-14] MEDS: BENZOCAINE/MENTHOL LOZENG 1 EACH LOZENGE MUCOUS MEM PRN (20:38)
[2020-09-14 20:47] LABS: Glucose,Whole Blood 128 mg/dL (75-99)
[2020-09-14] MEDS ORDERED: HEPARIN SODIUM,PORCINE/PF 5,000 UNIT/0.5 ML SYRINGE SQ SCH (21:00)
[2020-09-15] MEDS: HYDROmorphone 1 MG/ML 1 ML SYRINGE IVP PRN ×7 (02:21→23:09)
[2020-09-15] MEDS: BENZOCAINE/MENTHOL LOZENG 1 EACH LOZENGE MUCOUS MEM PRN ×4 (02:24→23:14)
[2020-09-15 06:08] LABS: Basophils % (A) 0 %; Eosinophils % (A) 0 %; HCT 43.7 % (39.0-53.0); HGB 13.7 gm/dL (13.0-17.5); Lymphocytes # (A) 2.2 k/uL (1.0-4.8); Lymphocytes % (A) 15 %; MCH 28.6 pg (25.0-35.0); MCHC 31.5 g/dL (31.0-37.0); MCV 90.9 fL (80.0-100.0); Mean Platelet Volume 7.6; Monocytes # (A) 1.1 k/uL (0-1.0); Monocytes % (A) 8 %; Neutrophils # (A) 10.6 k/uL (1.3-7.7); Neutrophils % (A) 75 %; Platelet Count 476 k/uL (150-450); RBC 4.81 m/uL (4.30-5.90); RDW 13.5 % (11.5-15.5); WBC 14.2 k/uL (3.8-10.6)
[2020-09-15 06:23] LABS: Potassium 4.9 mmol/L (3.5-5.1)
[2020-09-15 06:24] LABS: African American GFR (CKD) 67 (>60 ml/min/1.73 sqM); Anion Gap 9 mmol/L; Blood Urea Nitrogen 28 mg/dL (9-20); Calcium 9.2 mg/dL (8.4-10.2); Carbon Dioxide 24 mmol/L (22-30); Chloride 108 mmol/L (98-107); Glucose 117 mg/dL (74-99); Non-African American GFR(CKD) 58 (>60 ml/min/1.73 sqM); Sodium 141 mmol/L (137-145)
[2020-09-15 07:28] LABS: Glucose,Whole Blood 121 mg/dL (75-99)
[2020-09-15] MEDS: NON FORMULARY DRUG (Ciclesonide [Alvesco] 6.1 GM Hfa.Aer.Ad) INHALATION SCH ×2 (07:28→23:09)
[2020-09-15] MEDS: INSULIN ASPART (NovoLOG) 100 UNIT/ML VIAL SQ SCH ×4 (07:42→21:35)
[2020-09-15] MEDS: METOPROLOL TARTRATE 50 MG TAB PO SCH ×2 (07:47→21:28)
[2020-09-15] MEDS: MAGNESIUM OXIDE 400 MG TAB PO SCH (07:48)
[2020-09-15] MEDS: PANTOPRAZOLE 40 MG/10 ML VIAL IVP SCH (07:48)
--- NOTE | 2020-09-15 08:23 | XR ---
EXAMINATION TYPE: XR abdomen 2V DATE OF EXAM: 09/15/2020 CLINICAL DATA: 49-year-old male follow-up bowel obstruction, [facility] COMPARISON: 09/06/2020 FINDINGS: An NG tube is in place with satisfactory decompression of the previously distended stomach. No evidence for free intraperitoneal air. Some interval increase in bowel gas in the left side of the abdomen. Residual dilated small bowel loo ps remain with air-fluid levels. Loops in the left abdomen measure up to 5.1 cm versus 6.0 cm, previo usly. Continued mild to moderate stool in the right side of the abdomen. Multiple surgical clips throughout the abdomen. IMPRESSION: 1. Findings suggest gradually improving small bowel obstruction with greater degree of air in the lef t side of the colon and decreasing caliber of dilated small bowel loops currently measuring 5.1 cm ve rsus 6.0 cm, previously. 2. NG tube in place with satisfactory decompression of the stomach.
[2020-09-15] MEDS: PIPERACILLIN-TAZOBACTAM 3.375 GM in SODIUM CHLORIDE 0.9% 100 ML IVPB SCH ×2 (10:24→17:06)
[2020-09-15] MEDS: SODIUM CHLORIDE 0.9% 1,000 ML IV SCH (10:39)
--- NOTE | 2020-09-15 12:02 | P.PN ---
<Ami Toscano - Last Filed: 09/15/20 14:13> Subjective Progress Note Date: 09/15/20 CHIEF COMPLAINT: Abdominal pain HISTORY OF PRESENT ILLNESS: Patient is being followed for a partial small bowel obstruction. Patient had NG tube placed yesterday with a large amount of output. He had a total of 3500 mL output yesterday and 800 mL up with this morning. I'll put has been dark greenish to brownish. Yesterday there apparently had been some burgundy color output. This has not resolved. Patient reports a decrease in the abdominal pain. He is passing a small amount of gas. He complains of feeling thirsty he has been eating a lot of ice chips. He reports that his urine is dark and urinating only small amounts. Afebrile. Patient has had some mild tachycardia. Assessment service started patient on antibiotics. White count has come down from 21.3-14.2 creatinine 1.41 PHYSICAL EXAM: VITAL SIGNS: Reviewed. GENERAL: Well-developed in no acute distress. HEENT: No sclera icterus. Extraocular movements grossly intact. Moist buccal mucosa. Head is atraumatic, normocephalic. ABDOMEN: Soft. Decrease in abdominal distention Epigastric tenderness NEUROLOGIC: Alert and oriented. Cranial nerves II through XII grossly intact. ASSESSMENT: 1. High-grade partial or early complete small bowel obstruction PLAN: -continue NG tube for decompression -Keep patient nothing by mouth except ice chips -Increased IV fluids -Continue pain medication as needed -Continue GI prophylaxis Protonix and DVT prophylaxis subcu heparin Physician Bankruptcy Processor note has been reviewed by physician. Signing provider agrees with the documented findings, assessment, and plan of care. Objective - Vital Signs Vital signs: Vital Signs Temp 98.1 F 09/15/20 04:30 Pulse 108 H 09/15/20 04:30 Resp 16 09/15/20 04:30 BP 127/83 09/15/20 04:30 Pulse Ox 98 09/15/20 04:30 Intake & Output 09/14/20 09/15/20 09/15/20 18:59 06:59 18:59 Intake Total 900 725 Output Total 2700 1600 Balance -1800 -875 Intake: Intake, IV Titration 900 725 Amount Sodium Chloride 0.9% 1, 900 725 000 ml @ 75 mls/hr IV . [id number] [facility] Rx#:[id number] Oral 0 Output: Gastric Drainage 2700 1600 Other: Voiding Method Urinal Toilet Urinal # Voids 2 2 - Labs CBC & Chem 7: 09/15/20 05:10 09/15/20 05:10 Labs: Abnormal Lab Results - Last 24 Hours (Table) 09/14/20 09/14/20 09/15/20 Range/Units 17:07 20:45 05:10 WBC 14.2 H (3.8-10.6) k/uL Plt Count 476 H (150-450) k/uL Neutrophils # 10.6 H (1.3-7.7) k/uL Monocytes # 1.1 H (0-1.0) k/uL Chloride (98-107) mmol/L BUN (9-20) mg/dL Creatinine (0.66-1.25) mg/dL Glucose (74-99) mg/dL POC Glucose (mg/dL) 124 H 128 H (75-99) mg/dL 09/15/20 09/15/20 Range/Units 05:10 07:26 WBC (3.8-10.6) k/uL Plt Count (150-450) k/uL Neutrophils # (1.3-7.7) k/uL Monocytes # (0-1.0) k/uL Chloride 108 H (98-107) mmol/L BUN 28 H (9-20) mg/dL Creatinine 1.41 H (0.66-1.25) mg/dL Glucose 117 H (74-99) mg/dL POC Glucose (mg/dL) 121 H (75-99) mg/dL <Dax Wren - Last Filed: 09/15/20 14:29> Subjective As above. Patient had significant output yesterday from the nasogastric tube. His abdominal pain is improved. Still with mild pain upper mid abdomen. Labs noted. Today's x-rays noted. Keep nasogastric tube to suction. Repeat abdominal x-rays tomorrow. Objective - Vital Signs Vital signs: Vital Signs Temp 98.3 F 09/15/20 12:22 Pulse 99 09/15/20 12:22 Resp 19 09/15/20 12:22 BP 124/78 09/15/20 12:22 Pulse Ox 96 09/15/20 12:22 Intake & Output 09/14/20 09/15/20 09/15/20 18:59 06:59 18:59 Intake Total 900 725 Output Total 2700 1600 Balance -1800 -875 Weight 127.006 kg Intake: Intake, IV Titration 900 725 Amount Sodium Chloride 0.9% 1, 900 725 000 ml @ 75 mls/hr IV . [id number] [facility] Rx#:[id number] Oral 0 Output: Gastric Drainage 2700 1600 Other: Voiding Method Urinal Toilet Toilet Urinal # Voids 2 2 - Labs CBC & Chem 7: 09/15/20 05:10 09/15/20 05:10 Labs: Abnormal Lab Results - Last 24 Hours (Table) 09/14/20 09/14/20 09/15/20 Range/Units 17:07 20:45 05:10 WBC 14.2 H (3.8-10.6) k/uL Plt Count 476 H (150-450) k/uL Neutrophils # 10.6 H (1.3-7.7) k/uL Monocytes # 1.1 H (0-1.0) k/uL Chloride (98-107) mmol/L BUN (9-20) mg/dL Creatinine (0.66-1.25) mg/dL Glucose (74-99) mg/dL POC Glucose (mg/dL) 124 H 128 H (75-99) mg/dL 09/15/20 09/15/20 09/15/20 Range/Units 05:10 07:26 12:20 WBC (3.8-10.6) k/uL Plt Count (150-450) k/uL Neutrophils # (1.3-7.7) k/uL Monocytes # (0-1.0) k/uL Chloride 108 H (98-107) mmol/L BUN 28 H (9-20) mg/dL Creatinine 1.41 H (0.66-1.25) mg/dL Glucose 117 H (74-99) mg/dL POC Glucose (mg/dL) 121 H 112 H (75-99) mg/dL
[2020-09-15] MEDS: HEPARIN SODIUM,PORCINE/PF 5,000 UNIT/0.5 ML SYRINGE SQ SCH ×2 (12:11→21:28)
--- NOTE | 2020-09-15 12:19 | P.PN ---
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 Patient is currently residing in [facility]. Patient will not provide details of his incarceration. Patient complains of epigastric pain that started at 5 PM yesterday. He states he tried to walk it off but that did not seem to help. He denies any nausea or vomiting. Patient states he had 3 bowel movements yesterday, 2 in the morning and 1 in the afternoon. He is not passing gas. He denies any blood in the stool. He has history of multiple abdominal surgeries. Patient was brought into [facility] emergency center for evaluation. Patient was found to be afebrile, initial heart rate 121 with repeat 101, blood pressure 119/86, pulse ox 97% on room air. Blood work revealed WBC 18.4, hemoglobin 13.7, platelets 540. INR 1.0. Sodium 134, potassium 4.4, chloride 101, CO2 20, BUN 33 creatinine 2.19. Baseline creatinine 1.5/1.6. Liver function tests were normal. Troponin was normal. Lipase 305. Urinalysis clear with nitrate and leuk on esterase negative. Small amount of blood. Rare bacteria. Chest x-ray normal. CAT scan of the abdomen and pelvis without contrast revealed dilated loops of small bowel in the mid abdomen suggestive partial obstruction. Patient has been admitted and consult in place with Dr. Fernandez. Patient is seen today in the emergency center while waiting for [facility]. 09/14: Patient's diet was advanced yesterday by Dr. Fernandez to clear liquids and patient states as soon as he had eaten he developed significant abdominal pain. Is not passing gas and has not had a bowel movement. Patient has been placed nothing by mouth and Zofran increased to every 6 hours, abdominal x-rays ordered stat which reveals high grade partial or early complete small bowel obstruction. Patient is afebrile, heart rate 95, blood pressure 173/96, pulse ox 90% on room air. Repeat blood work reveals WBC of 21.3, hemoglobin 14.6, platelet count 449. Electrolytes are normal. BUN 25 and creatinine 1.42. Blood sugars are running between 167 and 188. 09/15: Patient had NGT placed yesterday currently to suction. He states he is passing a very small amount of gas, no bowel movements. Abdominal x-ray this morning reveals gradual improving small bowel obstruction with greater degree of air in the left side of the colon and decreasing caliber of dilated small bowel loops. Patient started on IV antibiotics with Zosyn and continued on IV fluids at 125 mL per hour. Patient is afebrile, heart rate 108, blood pressure 127/83, pulse ox 98% on room air. Blood work reveals WBC 14.2, platelet count 476, hemoglobin 13.7. Sodium 141, potassium 4.9, chloride 108, CO2 24, BUN 28 creatinine 1.41. Blood sugars are running between 117 and 169. REVIEW OF SYSTEMS Constitutional: No fever, no chills, no night sweats. No weight change. No weakness, fatigue or lethargy. No daytime sleepiness. EENT: No headache. No blurred vision or double vision, no loss of vision. No loss of Hearing, no ringing in the ears, no dizziness. No nasal drainage or c ongestion. No epistaxis. No sore throat. Lungs: No shortness of breath, cough, no sputum production. No wheezing. Cardiovascular: No chest pain, no lower extremity edema. No palpitations. No paroxysmal nocturnal dyspnea. No orthopnea. No lightheadedness or dizziness. No syncopal episodes. Abdominal: Reports abdominal pain improved after NG tube. no nausea, no vomiting. No diarrhea. Reports constipation. No bloody or tarry stools. Reports loss of appetite. Genitourinary: No dysuria, increased frequency, urgency. No urinary retention. Musculoskeletal: No myalgias. No muscle weakness, no gait dysfunction, no frequent falls. No back pain. No neck pain. Integumentary: No wounds, no lesions. No rash or pruritus. No unusual bruising. No change in hair or nails. Neurologic: No aphasia. No facial droop. No change in mentation. No head injury. No headache. No paralysis. No paresthesia. Psychiatric: No depression. No anxiety. No mood swings. Endocrine: No abnormal blood sugars. No weight change. PHYSICAL EXAMINATION Gen: This is an obese 49-year-old male. Patient is resting in bed and appears to be in no acute distress. HEENT: Head is atraumatic, normocephalic. Pupils equal, round. Sclerae is anicteric. NGT with brown liquid return. NECK: Supple. No JVD. No lymphadenopathy. No thyromegaly. LUNGS: Clear to auscultation. No wheezes or rhonchi. No intercostal retractions. HEART: Regular rate and rhythm. No murmur. ABDOMEN: Bowel sounds present. No masses. Mild generalized abdominal tenderness. EXTREMITIES: No pedal edema. No calf tenderness. NEUROLOGICAL: Patient is awake, alert and oriented x3. Cranial nerves 2 through 12 are grossly intact. ASSESSMENT AND PLAN 1. Partial small bowel obstruction. Consult with general surgery appreciated. Patient made nothing by mouth , NG tube, Zosyn. 2. Acute kidney injury. Patient is on IV fluids at d to 125 mL/h, recheck renal function in the morning, avoid nephrotoxic agents. Hydrochlorothiazide will be held for today. 3. History of renal cell cancer, stable. 4. Hypertension. Hold hydrochlorothiazide today. Continue lisinopril 10 mg at bedtime, Lopressor 100 mg twice daily. Hydralazine IV will be added for blood pressure control. 5. Hyperlipidemia. Hold fenofibrate 160 mg at bedtime. 6. Diabetes mellitus type 2. Hold glipizide 10 mg daily, metformin 1000 mg twice daily, continue NovoLog scale. 7. Gastroesophageal reflux disease. Continue Protonix 40 mg IV push daily. 8. Chronic back pain. 9. History of SVT. Continue Lopressor. 10. DVT prophylaxis. Heparin subcu. DISCHARGE PLAN Return To [facility] Impression and plan of care have been directed as dictated by the signing physi cian. Luly Coffey nurse practitioner acting as scribe for signing physician. Objective - Vital Signs Vital signs: Vital Signs Temp 98.1 F 09/15/20 04:30 Pulse 108 H 09/15/20 04:30 Resp 16 09/15/20 04:30 BP 127/83 09/15/20 04:30 Pulse Ox 98 09/15/20 04:30 Intake & Output 09/14/20 09/15/20 09/15/20 18:59 06:59 18:59 Intake Total 900 725 Output Total 2700 1600 Balance -1800 -875 Intake: Intake, IV Titration 900 725 Amount Sodium Chloride 0.9% 1, 900 725 000 ml @ 75 mls/hr IV . [id number] [facility] Rx#:[id number] Oral 0 Output: Gastric Drainage 2700 1600 Other: Voiding Method Urinal Toilet Urinal # Voids 2 2 - Labs CBC & Chem 7: 09/15/20 05:10 09/15/20 05:10 Labs: Abnormal Lab Results - Last 24 Hours (Table) 09/14/20 09/14/20 09/14/20 Range/Units 08:20 08:20 11:52 WBC 21.3 H (3.8-10.6) k/uL Plt Count (150-450) k/uL Neutrophils # 19.0 H (1.3-7.7) k/uL Lymphocytes # 0.9 L (1.0-4.8) k/uL Monocytes # 1.2 H (0-1.0) k/uL Chloride (98-107) mmol/L BUN 25 H (9-20) mg/dL Creatinine 1.42 H (0.66-1.25) mg/dL Glucose 188 H (74-99) mg/dL POC Glucose (mg/dL) 169 H (75-99) mg/dL 09/14/20 09/14/20 09/15/20 Range/Units 17:07 20:45 05:10 WBC 14.2 H (3.8-10.6) k/uL Plt Count 476 H (150-450) k/uL Neutrophils # 10.6 H (1.3-7.7) k/uL Lymphocytes # (1.0-4.8) k/uL Monocytes # 1.1 H (0-1.0) k/uL Chloride (98-107) mmol/L BUN (9-20) mg/dL Creatinine (0.66-1.25) mg/dL Glucose (74-99) mg/dL POC Glucose (mg/dL) 124 H 128 H (75-99) mg/dL 09/15/20 09/15/20 Range/Units 05:10 07:26 WBC (3.8-10.6) k/uL Plt Count (150-450) k/uL Neutrophils # (1.3-7.7) k/uL Lymphocytes # (1.0-4.8) k/uL Monocytes # (0-1.0) k/uL Chloride 108 H (98-107) mmol/L BUN 28 H (9-20) mg/dL Creatinine 1.41 H (0.66-1.25) mg/dL Glucose 117 H (74-99) mg/dL POC Glucose (mg/dL) 121 H (75-99) mg/dL
[2020-09-15 12:21] LABS: Glucose,Whole Blood 112 mg/dL (75-99)
[2020-09-15 13:25] VITALS: BMI 40.1
[2020-09-15 17:23] LABS: Glucose,Whole Blood 102 mg/dL (75-99)
[2020-09-15 20:24] LABS: Glucose,Whole Blood 103 mg/dL (75-99)
[2020-09-15] MEDS: lisinopriL 10 MG TAB PO SCH (21:28)
[2020-09-16] MEDS: PIPERACILLIN-TAZOBACTAM 3.375 GM in SODIUM CHLORIDE 0.9% 100 ML IVPB SCH ×3 (00:38→16:38)
[2020-09-16] MEDS: HYDROmorphone 1 MG/ML 1 ML SYRINGE IVP PRN ×7 (02:19→21:03)
[2020-09-16 06:02] LABS: Basophils % (A) 0 %; Eosinophils % (A) 0 %; HGB 11.7 gm/dL (13.0-17.5); Lymphocytes # (A) 2.5 k/uL (1.0-4.8); Lymphocytes % (A) 21 %; MCH 28.9 pg (25.0-35.0); MCHC 31.7 g/dL (31.0-37.0); MCV 91.2 fL (80.0-100.0); Mean Platelet Volume 7.6; Monocytes # (A) 0.9 k/uL (0-1.0); Monocytes % (A) 7 %; Neutrophils # (A) 8.1 k/uL (1.3-7.7); Neutrophils % (A) 69 %; Platelet Count 412 k/uL (150-450); RBC 4.05 m/uL (4.30-5.90); RDW 13.4 % (11.5-15.5); WBC 11.8 k/uL (3.8-10.6)
[2020-09-16 07:33] LABS: Glucose,Whole Blood 102 mg/dL (75-99)
--- NOTE | 2020-09-16 07:37 | XR ---
EXAMINATION TYPE: XR abdomen 2V DATE OF EXAM: 09/16/2020 COMPARISON: 09/15/2020 HISTORY: Pain TECHNIQUE: Single supine KUB image of the abdomen is obtained FINDINGS: Small bowel demonstrates no evidence for dilatation or air fluid levels. Gas and fecal material is seen in non-distended colon. No convincing evidence for pneumoperitoneum. No unusual calcifications. The lung bases are clear. The osseous structures are intact. IMPRESSION: 1. Overall nonobstructive bowel gas pattern.
[2020-09-16] MEDS: METOPROLOL TARTRATE 50 MG TAB PO SCH ×2 (07:49→20:36)
[2020-09-16] MEDS: INSULIN ASPART (NovoLOG) 100 UNIT/ML VIAL SQ SCH ×4 (07:50→20:17)
[2020-09-16] MEDS: PANTOPRAZOLE 40 MG/10 ML VIAL IVP SCH (07:50)
[2020-09-16] MEDS: NON FORMULARY DRUG (Ciclesonide [Alvesco] 6.1 GM Hfa.Aer.Ad) INHALATION SCH ×2 (07:50→23:11)
[2020-09-16] MEDS: MAGNESIUM OXIDE 400 MG TAB PO SCH (07:50)
--- NOTE | 2020-09-16 09:10 | P.PN ---
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 Patient is currently residing in [facility]. Patient will not provide details of his incarceration. Patient complains of epigastric pain that started at 5 PM yesterday. He states he tried to walk it off but that did not seem to help. He denies any nausea or vomiting. Patient states he had 3 bowel movements yesterday, 2 in the morning and 1 in the afternoon. He is not passing gas. He denies any blood in the stool. He has history of multiple abdominal surgeries. Patient was brought into [facility] emergency center for evaluation. Patient was found to be afebrile, initial heart rate 121 with repeat 101, blood pressure 119/86, pulse ox 97% on room air. Blood work revealed WBC 18.4, hemoglobin 13.7, platelets 540. INR 1.0. Sodium 134, potassium 4.4, chloride 101, CO2 20, BUN 33 creatinine 2.19. Baseline creatinine 1.5/1.6. Liver function tests were normal. Troponin was normal. Lipase 305. Urinalysis clear with nitrate and leuk on esterase negative. Small amount of blood. Rare bacteria. Chest x-ray normal. CAT scan of the abdomen and pelvis without contrast revealed dilated loops of small bowel in the mid abdomen suggestive partial obstruction. Patient has been admitted and consult in place with Dr. Fernandez. Patient is seen today in the emergency center while waiting for [facility] bed. 09/14: Patient's diet was advanced yesterday by Dr. Fernandez to clear liquids and patient states as soon as he had eaten he developed significant abdominal pain. Is not passing gas and has not had a bowel movement. Patient has been placed nothing by mouth and Zofran increased to every 6 hours, abdominal x-rays ordered stat which reveals high grade partial or early complete small bowel obstruction. Patient is afebrile, heart rate 95, blood pressure 173/96, pulse ox 90% on room air. Repeat blood work reveals WBC of 21.3, hemoglobin 14.6, platelet count 449. Electrolytes are normal. BUN 25 and creatinine 1.42. Blood sugars are running between 167 and 188. 09/15: Patient had NGT placed yesterday currently to suction. He states he is passing a very small amount of gas, no bowel movements. Abdominal x-ray this morning reveals gradual improving small bowel obstruction with greater degree of air in the left side of the colon and decreasing caliber of dilated small bowel loops. Patient started on IV antibiotics with Zosyn and continued on IV fluids at 125 mL per hour. Patient is afebrile, heart rate 108, blood pressure 127/83, pulse ox 98% on room air. Blood work reveals WBC 14.2, platelet count 476, hemoglobin 13.7. Sodium 141, potassium 4.9, chloride 108, CO2 24, BUN 28 creatinine 1.41. Blood sugars are running between 117 and 169. 09/16: Patient has been afebrile, heart rate 95-113, blood pressure 124/71, pulse ox 95% on room air. WBC 11.8, hemoglobin 11.7, platelet count 412. Blood sugar s are running between 102 112. Pro-calcitonin 0.33. Repeat abdominal x-rays this morning reveals overall nonobstructive bowel gas pattern. patient states that he has passing a little bit of gas. NG tube remains in place. Abdomen is soft.plan to continue Zosyn. REVIEW OF SYSTEMS Constitutional: No fever, no chills, no night sweats. No weight change. No weakness, fatigue or lethargy. No daytime sleepiness. EENT: No headache. No blurred vision or double vision, no loss of vision. No loss of Hearing, no ringing in the ears, no dizziness. No nasal drainage or congestion. No epistaxis. No sore throat. Lungs: No shortness of breath, cough, no sputum production. No wheezing. Cardiovascular: No chest pain, no lower extremity edema. No palpitations. No paroxysmal nocturnal dyspnea. No orthopnea. No lightheadedness or dizziness. No syncopal episodes. Abdominal: Reports abdominal pain improved after NG tube. no nausea, no vomiting. No diarrhea. Reports constipation. No bloody or tarry stools. Reports loss of appetite. Genitourinary: No dysuria, increased frequency, urgency. No urinary retention. Musculoskeletal: No myalgias. No muscle weakness, no gait dysfunction, no frequent falls. No back pain. No neck pain. Integumentary: No wounds, no lesions. No rash or pruritus. No unusual bruising. No change in hair or nails. Neurologic: No aphasia. No facial droop. No change in mentation. No head injury. No headache. No paralysis. No paresthesia. Psychiatric: No depression. No anxiety. No mood swings. Endocrine: No abnormal blood sugars. PHYSICAL EXAMINATION Gen: This is an obese 49-year-old male. Patient is resting in bed and appears to be in no acute distress. HEENT: Head is atraumatic, normocephalic. Pupils equal, round. Sclerae is anicteric. NGT. NECK: Supple. No JVD. No lymphadenopathy. No thyromegaly. LUNGS: Clear to auscultation. No wheezes or rhonchi. No intercostal retraction s. HEART: Regular rate and rhythm. No murmur. ABDOMEN: Bowel sounds present. No masses. Mild generalized abdominal tenderness. EXTREMITIES: No pedal edema. No calf tenderness. NEUROLOGICAL: Patient is awake, alert and oriented x3. Cranial nerves 2 through 12 are grossly intact. ASSESSMENT AND PLAN 1. Partial small bowel obstruction. Consult with general surgery appreciated. Patient made nothing by mouth except for ice chips and popsicles, NG tube, Zosyn. 2. Acute kidney injury. Patient is on IV fluids at d to 125 mL/h, recheck renal function in the morning, avoid nephrotoxic agents. Hydrochlorothiazide will be held for today. 3. History of renal cell cancer, stable. 4. Hypertension. Hold hydrochlorothiazide today. Continue lisinopril 10 mg at bedtime, Lopressor 100 mg twice daily. Hydralazine IV will be added for blood pressure control. 5. Hyperlipidemia. Hold fenofibrate 160 mg at bedtime. 6. Diabetes mellitus type 2. Hold glipizide 10 mg daily, metformin 1000 mg twice daily, continue NovoLog scale. 7. Gastroesophageal reflux disease. Continue Protonix 40 mg IV push daily. 8. Chronic back pain. 9. History of SVT. Continue Lopressor. 10. DVT prophylaxis. Heparin subcu. DISCHARGE PLAN Return To [facility] Impression and plan of care have been directed as dictated by the signing physician. Luly Coffey nurse practitioner acting as scribe for signing physician. Objective - Vital Signs Vital signs: Vital Signs Temp 98.6 F 09/16/20 04:50 Pulse 95 09/16/20 04:50 Resp 18 09/16/20 04:50 BP 124/71 09/16/20 04:50 Pulse Ox 95 09/16/20 04:50 Intake & Output 09/15/20 09/16/20 09/16/20 18:59 06:59 18:59 Intake Total 600 Output Total 1400 250 Balance -800 -250 Weight 127.006 kg Intake: Oral 600 Output: Gastric Drainage 1400 Urine 250 Other: Voiding Method Toilet Toilet # Voids 2 - Labs CBC & Chem 7: 09/16/20 05:18 09/15/20 05:10 Labs: Abnormal Lab Results - Last 24 Hours (Table) 09/15/20 09/15/20 09/15/20 Range/Units 05:10 12:20 17:20 WBC (3.8-10.6) k/uL RBC (4.30-5.90) m/uL Hgb (13.0-17.5) gm/dL Hct (39.0-53.0) % Neutrophils # (1.3-7.7) k/uL POC Glucose (mg/dL) 112 H 102 H (75-99) mg/dL Procalcitonin 0.33 H (0.02-0.09) ng/mL 09/15/20 09/16/20 09/16/20 Range/Units 20:23 05:18 07:32 WBC 11.8 H (3.8-10.6) k/uL RBC 4.05 L (4.30-5.90) m/uL Hgb 11.7 L (13.0-17.5) gm/dL Hct 37.0 L (39.0-53.0) % Neutrophils # 8.1 H (1.3-7.7) k/uL POC Glucose (mg/dL) 103 H 102 H (75-99) mg/dL Procalcitonin (0.02-0.09) ng/mL <Izabel Julio - Last Filed: 09/22/20 19:00> Objective - Vital Signs Vital signs: Vital Signs Temp 98.4 F 09/22/20 11:56 Pulse 106 H 09/22/20 11:56 Resp 18 09/22/20 11:56 BP 153/97 09/22/20 11:56 Pulse Ox 97 09/22/20 11:56 Intake & Output 09/21/20 09/22/20 09/22/20 18:59 06:59 18:59 Intake Total 3300 1500 Output Total 450 500 300 Balance 2850 1000 -300 Weight 127.006 kg 127.006 kg Intake: IV 850 Intake, IV Titration 2450 1500 Amount Lactated Ringers 1,000 ml 1000 1000 @ 125 mls/hr IV .Q8H ONE Rx#:[id number] Sodium Chloride 0.9% 1, 550 500 000 ml @ 125 mls/hr IV . Q8H SRIKANTH Rx#:[id number] Sodium Chloride 0.9% 150 800 ml @ 0 mls/hr IV .STK-MED ONE with ceFAZolin 3,000 mg Rx#:[id number] ceFAZolin 3 gm In Sodium 100 Chloride 0.9% 100 ml @ 200 mls/hr IVPB ONCE ONE Rx#:[id number] Oral 0 Output: Urine 425 500 300 Uretheral (March) 300 Estimated Blood Loss 25 Other: Voiding Method Toilet Indwelling Catheter Indwelling Catheter # Voids 4 3 # Bowel Movements 1 - Labs CBC & Chem 7: 09/22/20 06:33 09/22/20 06:33 Labs: Abnormal Lab Results - Last 24 Hours (Table) 09/22/20 09/22/20 09/22/20 Range/Units 06:33 06:33 06:33 WBC 18.8 H (3.8-10.6) k/uL Plt Count 507 H (150-450) k/uL Neutrophils # 15.2 H (1.3-7.7) k/uL Monocytes # 1.3 H (0-1.0) k/uL Carbon Dioxide 17.4 L (21.6-31.8) mmol/L Anion Gap 19.60 H (4.00-12.00) mmol/L BUN/Creatinine Ratio 11.00 L (12.00-20.00) Ratio POC Glucose (mg/dL) (75-99) mg/dL Calcium 8.5 L (8.7-10.3) mg/dL Magnesium 1.4 L (1.6-2.3) mg/dL ALT 52 H (10-49) U/L Total Protein 5.2 L (6.2-8.2) g/dL Albumin 3.30 L (3.80-4.90) g/dL 09/22/20 09/22/20 Range/Units 11:54 17:26 WBC (3.8-10.6) k/uL Plt Count (150-450) k/uL Neutrophils # (1.3-7.7) k/uL Monocytes # (0-1.0) k/uL Carbon Dioxide (21.6-31.8) mmol/L Anion Gap (4.00-12.00) mmol/L BUN/Creatinine Ratio (12.00-20.00) Ratio POC Glucose (mg/dL) 116 H 114 H (75-99) mg/dL Calcium (8.7-10.3) mg/dL Magnesium (1.6-2.3) mg/dL ALT (10-49) U/L Total Protein (6.2-8.2) g/dL Albumin (3.80-4.90) g/dL
[2020-09-16] MEDS: BENZOCAINE/MENTHOL LOZENG 1 EACH LOZENGE MUCOUS MEM PRN ×3 (09:28→22:52)
[2020-09-16] MEDS: HEPARIN SODIUM,PORCINE/PF 5,000 UNIT/0.5 ML SYRINGE SQ SCH ×2 (10:54→22:52)
[2020-09-16] MEDS: SODIUM CHLORIDE 0.9% 1,000 ML IV SCH ×2 (11:28→12:35)
[2020-09-16 11:58] LABS: Glucose,Whole Blood 96 mg/dL (75-99)
--- NOTE | 2020-09-16 12:33 | P.PN ---
<Ami Toscano - Last Filed: 09/16/20 12:29> Subjective Progress Note Date: 09/16/20 CHIEF COMPLAINT: Abdominal pain HISTORY OF PRESENT ILLNESS: Patient is being followed for a partial small bowel obstruction. Patient has NG tube in place with brownish output. Patient is eating ice chips and popsicles. Patient reports that his abdominal pain has decreased. His bloating has also improved. He denies any nausea or vomiting. He is having flatus. Abdominal x-ray overall nonobstructive bowel gas pattern. Afebrile. Patient had mild tachycardia yesterday evening. Heart rate has improved. WBC trending downwards at 11.8 PHYSICAL EXAM: VITAL SIGNS: Reviewed. GENERAL: Well-developed in no acute distress. HEENT: No sclera icterus. Extraocular movements grossly intact. Moist buccal mucosa. Head is atraumatic, normocephalic. ABDOMEN: Soft. Decrease in abdominal distention Epigastric tenderness NEUROLOGIC: Alert and oriented. Cranial nerves II through XII grossly intact. ASSESSMENT: 1. High-grade partial or early complete small bowel obstruction improved PLAN: -Further recommendations forthcoming per surgeon -continue NG tube for decompression for now until evaluated by surgeon -Keep patient nothing by mouth except ice chips and popsicles -Continue IV fluids -Continue pain medication as needed -Continue GI prophylaxis Protonix and DVT prophylaxis subcu heparin Physician Vacuum System Tester note has been reviewed by physician. Signing provider agrees with the documented findings, assessment, and plan of care. Objective - Vital Signs Vital signs: Vital Signs Temp 98.6 F 09/16/20 04:50 Pulse 95 09/16/20 04:50 Resp 18 09/16/20 04:50 BP 124/71 09/16/20 04:50 Pulse Ox 95 09/16/20 04:50 Intake & Output 09/15/20 09/16/20 09/16/20 18:59 06:59 18:59 Intake Total 600 Output Total 1400 250 Balance -800 -250 Weight 127.006 kg 127.006 kg Intake: Oral 600 Output: Gastric Drainage 1400 Urine 250 Other: Voiding Method Toilet Toilet # Voids 2 - Labs CBC & Chem 7: 09/16/20 05:18 09/15/20 05:10 Labs: Abnormal Lab Results - Last 24 Hours (Table) 09/15/20 09/15/20 09/15/20 Range/Units 05:10 17:20 20:23 WBC (3.8-10.6) k/uL RBC (4.30-5.90) m/uL Hgb (13.0-17.5) gm/dL Hct (39.0-53.0) % Neutrophils # (1.3-7.7) k/uL POC Glucose (mg/dL) 102 H 103 H (75-99) mg/dL Procalcitonin 0.33 H (0.02-0.09) ng/mL 09/16/20 09/16/20 Range/Units 05:18 07:32 WBC 11.8 H (3.8-10.6) k/uL RBC 4.05 L (4.30-5.90) m/uL Hgb 11.7 L (13.0-17.5) gm/dL Hct 37.0 L (39.0-53.0) % Neutrophils # 8.1 H (1.3-7.7) k/uL POC Glucose (mg/dL) 102 H (75-99) mg/dL Procalcitonin (0.02-0.09) ng/mL <Dax Wren - Last Filed: 09/16/20 13:16> Subjective As above. X-rays do appear improved. He is passing flatus. Still having some upper abdominal discomfort but definitely better. No bowel movement. White blood cell count improved as well. Objective - Vital Signs Vital signs: Vital Signs Temp 98.2 F 09/16/20 12:29 Pulse 93 09/16/20 12:29 Resp 17 09/16/20 12:29 BP 133/88 09/16/20 12:29 Pulse Ox 95 09/16/20 12:29 Intake & Output 09/15/20 09/16/20 09/16/20 18:59 06:59 18:59 Intake Total 600 Output Total 1400 250 Balance -800 -250 Weight 127.006 kg 127.006 kg Intake: Oral 600 Output: Gastric Drainage 1400 Urine 250 Other: Voiding Method Toilet Toilet # Voids 2 - Labs CBC & Chem 7: 09/16/20 05:18 09/15/20 05:10 Labs: Abnormal Lab Results - Last 24 Hours (Table) 09/15/20 09/15/20 09/15/20 Range/Units 05:10 17:20 20:23 WBC (3.8-10.6) k/uL RBC (4.30-5.90) m/uL Hgb (13.0-17.5) gm/dL Hct (39.0-53.0) % Neutrophils # (1.3-7.7) k/uL POC Glucose (mg/dL) 102 H 103 H (75-99) mg/dL Procalcitonin 0.33 H (0.02-0.09) ng/mL 09/16/20 09/16/20 Range/Units 05:18 07:32 WBC 11.8 H (3.8-10.6) k/uL RBC 4.05 L (4.30-5.90) m/uL Hgb 11.7 L (13.0-17.5) gm/dL Hct 37.0 L (39.0-53.0) % Neutrophils # 8.1 H (1.3-7.7) k/uL POC Glucose (mg/dL) 102 H (75-99) mg/dL Procalcitonin (0.02-0.09) ng/mL
[2020-09-16 13:26] LABS: African American GFR (CKD) 67.4 (60.0-200.0); BUN/Creat Ratio 17.14 Ratio (12.00-20.00); Calcium 8.6 mg/dL (8.7-10.3); Non-African American GFR(CKD) 58.2 (60.0-200.0); Potassium 4.1 mmol/L (3.5-5.5)
[2020-09-16 17:18] LABS: Glucose,Whole Blood 88 mg/dL (75-99)
[2020-09-16 19:59] LABS: Glucose,Whole Blood 92 mg/dL (75-99)
[2020-09-16] MEDS: lisinopriL 10 MG TAB PO SCH (20:36)
[2020-09-17] MEDS: HYDROmorphone 1 MG/ML 1 ML SYRINGE IVP PRN ×3 (00:10→08:50)
[2020-09-17] MEDS: PIPERACILLIN-TAZOBACTAM 3.375 GM in SODIUM CHLORIDE 0.9% 100 ML IVPB SCH ×2 (00:13→08:56)
[2020-09-17 07:19] LABS: Glucose,Whole Blood 89 mg/dL (75-99)
[2020-09-17] MEDS: INSULIN ASPART (NovoLOG) 100 UNIT/ML VIAL SQ SCH ×4 (07:55→20:46)
--- NOTE | 2020-09-17 08:35 | XR ---
Abdomen. HISTORY: Follow-up obstruction. COMPARISON: 09/16/2020. TECHNIQUE: 2 supine and one upright view the abdomen was obtained. FINDINGS: There is an NG tube. The lung bases are clear. There are multiple surgical clips within the right and left upper quadrants and in the left abdomen j ust to the left of the midline. The bowel gas pattern is nonspecific and there is no evidence of bowel obstruction. There is no free intraperitoneal air. The osseous structures are intact. There is been no interval change. IMPRESSION: Nonspecific abdomen with no interval change. Postsurgical changes as described above. There is no lynsey dence of bowel obstruction or free intraperitoneal air.
[2020-09-17] MEDS: NON FORMULARY DRUG (Ciclesonide [Alvesco] 6.1 GM Hfa.Aer.Ad) INHALATION SCH ×2 (08:43→20:46)
[2020-09-17] MEDS: MAGNESIUM OXIDE 400 MG TAB PO SCH (08:55)
[2020-09-17] MEDS: METOPROLOL TARTRATE 50 MG TAB PO SCH ×2 (08:56→19:55)
[2020-09-17] MEDS: PANTOPRAZOLE 40 MG/10 ML VIAL IVP SCH (08:56)
[2020-09-17] MEDS: HEPARIN SODIUM,PORCINE/PF 5,000 UNIT/0.5 ML SYRINGE SQ SCH ×2 (08:56→22:09)
--- NOTE | 2020-09-17 09:06 | P.PN ---
Subjective Progress Note Date: 09/17/20 Principal diagnosis: Small bowel obstruction Patient feels well today. He had a small bowel movement. Still passing flatus. Denies nausea or vomiting. Today's x-ray shows no evidence of obstruction. Objective - Vital Signs Vital signs: Vital Signs Temp 98.3 F 09/17/20 05:00 Pulse 93 09/17/20 05:00 Resp 16 09/17/20 05:00 BP 148/85 09/17/20 05:00 Pulse Ox 94 L 09/17/20 05:00 Intake & Output 09/16/20 09/17/20 09/17/20 18:59 06:59 18:59 Output Total 500 1400 Balance -500 -1400 Weight 127.006 kg Output: Gastric Drainage 500 1400 Other: Voiding Method Toilet # Voids 3 - Exam Abdomen: On examination patient's abdomen has no evidence of distention. No tenderness at this time - Labs CBC & Chem 7: 09/16/20 05:18 09/16/20 05:18 Labs: Abnormal Lab Results - Last 24 Hours (Table) 09/16/20 Range/Units 05:18 Est GFR (CKD-EPI)NonAf 58.2 L (60.0-200.0) Calcium 8.6 L (8.7-10.3) mg/dL Assessment and Plan (1) Small bowel obstruction Narrative/Plan: We'll remove nasogastric tube at this time. Begin clear liquids. Current Visit: Yes Status: Acute Code(s): K56.609 - UNSP INTESTNL OBST, UNSP TO PARTIAL VERSUS COMPLETE OBST SNOMED Code(s): 167347902
[2020-09-17] MEDS: SODIUM CHLORIDE 0.9% 1,000 ML IV SCH (09:36)
[2020-09-17 12:02] LABS: Glucose,Whole Blood 76 mg/dL (75-99)
[2020-09-17] MEDS: HYDROmorphone 0.5 MG/0.5 ML SYRINGE IVP PRN ×3 (13:43→22:09)
--- NOTE | 2020-09-17 14:22 | P.PN ---
Subjective Progress Note Date: 09/17/20 HISTORY OF PRESENT ILLNESS This is a 49-year-old male patient of [facility], patient follows with Rosalia Gallagher [employer], with past medical history of hypertension, hyperlipidemia, diabetes mellitus type 2, gastroesophageal reflux disease, chronic back pain, SVT, renal cell cancer, peptic ulcer disease, generalized anxiety disorder. Patient is currently residing in [facility]. Patient will not provide details of his incarceration. Patient complains of epigastric pain that started at 5 PM yesterday. He states he tried to walk it off but that did not seem to help. He denies any nausea or vomiting. Patient states he had 3 bowel movements yesterday, 2 in the morning and 1 in the afternoon. He is not passing gas. He denies any blood in the stool. He has history of multiple abdominal surgeries. Patient was brought into [facility] emergency center for evaluation. Patient was found to be afebrile, initial heart rate 121 with repeat 101, blood pressure 119/86, pulse ox 97% on room air. Blood work revealed WBC 18.4, hemoglobin 13.7, platelets 540. INR 1.0. Sodium 134, potassium 4.4, chloride 101, CO2 20, BUN 33 creatinine 2.19. Baseline creatinine 1.5/1.6. Liver function tests were normal. Troponin was normal. Lipase 305. Urinalysis clear with nitrate and leuk on esterase negative. Small amount of blood. Rare bacteria. Chest x-ray normal. CAT scan of the abdomen and pelvis without contrast revealed dilated loops of small bowel in the mid abdomen suggestive partial obstruction. Patient has been admitted and consult in place with Dr. Fernandez. Patient is seen today in the emergency center while waiting for [facility]. 09/14: Patient's diet was advanced yesterday by Dr. Fernandez to clear liquids and patient states as soon as he had eaten he developed significant abdominal pain. Is not passing gas and has not had a bowel movement. Patient has been placed nothing by mouth and Zofran increased to every 6 hours, abdominal x-rays ordered stat which reveals high grade partial or early complete small bowel obstruction. Patient is afebrile, heart rate 95, blood pressure 173/96, pulse ox 90% on room air. Repeat blood work reveals WBC of 21.3, hemoglobin 14.6, platelet count 449. Electrolytes are normal. BUN 25 and creatinine 1.42. Blood sugars are running between 167 and 188. 09/15: Patient had NGT placed yesterday currently to suction. He states he is passing a very small amount of gas, no bowel movements. Abdominal x-ray this morning reveals gradual improving small bowel obstruction with greater degree of air in the left side of the colon and decreasing caliber of dilated small bowel loops. Patient started on IV antibiotics with Zosyn and continued on IV fluids at 125 mL per hour. Patient is afebrile, heart rate 108, blood pressure 127/83, pulse ox 98% on room air. Blood work reveals WBC 14.2, platelet count 476, hemoglobin 13.7. Sodium 141, potassium 4.9, chloride 108, CO2 24, BUN 28 creatinine 1.41. Blood sugars are running between 117 and 169. 09/16: Patient has been afebrile, heart rate 95-113, blood pressure 124/71, pulse ox 95% on room air. WBC 11.8, hemoglobin 11.7, platelet count 412. Blood sugars are running between 102 112. Pro-calcitonin 0.33. Repeat abdominal x-rays this morning reveals overall nonobstructive bowel gas pattern. patient states that he has passing a little bit of gas. NG tube remains in place. Abdomen is soft.plan to continue Zosyn. patient examined at bedside. He had a small bowel movement and is passing gas. Abdominal x-ray was negative for obstruction. Vital signs were obtained temp of 98.6 pulse 82 respiratory rate 18 blood pressure 139/76 no recent labs to compare. Surgery recommended removing nasogastric tube today and starting patient on clear liquid diet patient denies any abdominal pain on assessment denies any nausea or vomiting. Denies any dark stools. Denies any chest pain or breathing difficulty. REVIEW OF SYSTEMS Constitutional: No fever, no chills, no night sweats. No weight change. No weakness, fatigue or lethargy. No daytime sleepiness. EENT: No headache. No blurred vision or double vision, no loss of vision. No loss of Hearing, no ringing in the ears, no dizziness. No nasal drainage or congestion. No epistaxis. No sore throat. Lungs: No shortness of breath, cough, no sputum production. No wheezing. Cardiovascular: No chest pain, no lower extremity edema. No palpitations. No paroxysmal nocturnal dyspnea. No orthopnea. No lightheadedness or dizziness. No syncopal episodes. Abdominal: Reports abdominal pain improved after NG tube. no nausea, no vom iting. No diarrhea. Reports constipation. No bloody or tarry stools. Reports loss of appetite. Genitourinary: No dysuria, increased frequency, urgency. No urinary retention. Musculoskeletal: No myalgias. No muscle weakness, no gait dysfunction, no frequent falls. No back pain. No neck pain. Integumentary: No wounds, no lesions. No rash or pruritus. No unusual bruising. No change in hair or nails. Neurologic: No aphasia. No facial droop. No change in mentation. No head injury. No headache. No paralysis. No paresthesia. Psychiatric: No depression. No anxiety. No mood swings. Endocrine: No abnormal blood sugars. PHYSICAL EXAMINATION Gen: This is an obese 49-year-old male. Patient is resting in bed and appears to be in no acute distress. HEENT: Head is atraumatic, normocephalic. Pupils equal, round. Sclerae is anicteric. NECK: Supple. No JVD. No lymphadenopathy. No thyromegaly. LUNGS: Clear to auscultation. No wheezes or rhonchi. No intercostal retractions. HEART: Regular rate and rhythm. No murmur. ABDOMEN: Bowel sounds present. No masses. abdominal tenderness improved. EXTREMITIES: No pedal edema. No calf tenderness. NEUROLOGICAL: Patient is awake, alert and oriented x3. Cranial nerves 2 through 12 are grossly intact. ASSESSMENT AND PLAN 1. Partial small bowel obstruction. Consult with general surgery appreciated. clear liquid diet 2. Acute kidney injury. Patient is on IV fluids at d to 125 mL/h, recheck renal function in the morning, avoid nephrotoxic agents. Hydrochlorothiazide will be held for today. 3. History of renal cell cancer, stable. 4. Hypertension. Hold hydrochlorothiazide today. Continue lisinopril 10 mg at bedtime, Lopressor 100 mg twice daily. Hydralazine IV will be added for blood pressure control. 5. Hyperlipidemia. Hold fenofibrate 160 mg at bedtime. 6. Diabetes mellitus type 2. Hold glipizide 10 mg daily, metformin 1000 mg twice daily, continue NovoLog scale. 7. Gastroesophageal reflux disease. Continue Protonix 40 mg IV push daily. 8. Chronic back pain. 9. History of SVT. Continue Lopressor. 10. DVT prophylaxis. Heparin subcu. DISCHARGE PLAN Return To [facility] Objective - Vital Signs Vital signs: Vital Signs Temp 98.6 F 09/17/20 11:21 Pulse 82 09/17/20 11:21 Resp 18 09/17/20 11:21 BP 131/79 09/17/20 11:21 Pulse Ox 96 09/17/20 11:21 Intake & Output 09/16/20 09/17/20 09/17/20 18:59 06:59 18:59 Output Total 500 1400 300 Balance -500 -1400 -300 Weight 127.006 kg Output: Gastric Drainage 500 1400 Urine 300 Other: Voiding Method Toilet Toilet # Voids 3 - Labs CBC & Chem 7: 09/16/20 05:18 09/16/20 05:18
[2020-09-17 17:05] LABS: Glucose,Whole Blood 104 mg/dL (75-99)
[2020-09-17] MEDS: BENZOCAINE/MENTHOL LOZENG 1 EACH LOZENGE MUCOUS MEM PRN (18:58)
[2020-09-17] MEDS: lisinopriL 10 MG TAB PO SCH (19:55)
[2020-09-17 20:39] LABS: Glucose,Whole Blood 111 mg/dL (75-99)
[2020-09-18] MEDS: HYDROmorphone 0.5 MG/0.5 ML SYRINGE IVP PRN ×7 (02:34→23:33)
[2020-09-18] MEDS: SODIUM CHLORIDE 0.9% 1,000 ML IV SCH ×2 (02:35→11:55)
[2020-09-18 07:08] LABS: Glucose,Whole Blood 104 mg/dL (75-99)
[2020-09-18] MEDS: INSULIN ASPART (NovoLOG) 100 UNIT/ML VIAL SQ SCH ×4 (07:19→21:25)
[2020-09-18] MEDS: ONDANSETRON 4 MG/2 ML VIAL IVP PRN (08:38)
[2020-09-18] MEDS: METOPROLOL TARTRATE 50 MG TAB PO SCH ×2 (08:39→21:25)
[2020-09-18] MEDS: PANTOPRAZOLE 40 MG/10 ML VIAL IVP SCH (08:40)
[2020-09-18] MEDS: MAGNESIUM OXIDE 400 MG TAB PO SCH (08:40)
[2020-09-18] MEDS: NON FORMULARY DRUG (Ciclesonide [Alvesco] 6.1 GM Hfa.Aer.Ad) INHALATION SCH ×2 (08:41→21:29)
--- NOTE | 2020-09-18 10:57 | P.PN ---
Subjective Progress Note Date: 09/18/20 Principal diagnosis: Small bowel obstruction Patient's nasogastric tube was removed yesterday. Per the nursing staff the patient drank a lot of liquids last night. He then began experiencing some nausea. No vomiting. Feels a little bit more bloated today. He has had 2 bowel movements however. Objective - Vital Signs Vital signs: Vital Signs Temp 98.6 F 09/18/20 05:00 Pulse 89 09/18/20 08:20 Resp 16 09/18/20 08:20 BP 148/86 09/18/20 05:00 Pulse Ox 98 09/18/20 05:00 Intake & Output 09/17/20 09/18/20 09/18/20 18:59 06:59 18:59 Intake Total 360 925 Output Total 1200 900 Balance -840 25 Intake: Intake, IV Titration 25 Amount Piperacillin-Tazobactam 3 25 .375 gm In Sodium Chloride 0.9% 100 ml @ 25 mls/hr IVPB Q8HR [facility] Rx# :[id number] Oral 360 900 Output: Urine 1200 900 Other: Voiding Method Toilet Toilet Toilet # Voids 2 - Exam Abdomen: Soft, nondistended, mild upper abdominal tenderness - Labs CBC & Chem 7: 09/16/20 05:18 09/16/20 05:18 Labs: Abnormal Lab Results - Last 24 Hours (Table) 09/17/20 09/17/20 09/18/20 Range/Units 16:53 20:37 07:00 POC Glucose (mg/dL) 104 H 111 H 104 H (75-99) mg/dL Assessment and Plan (1) Small bowel obstruction Narrative/Plan: Continue clear liquids. Recheck abdominal x-rays tomorrow. Ambulate. Current Visit: Yes Status: Acute Code(s): K56.609 - UNSP INTESTNL OBST, UNSP TO PARTIAL VERSUS COMPLETE OBST SNOMED Code(s): 015111171
[2020-09-18 11:42] LABS: Glucose,Whole Blood 97 mg/dL (75-99)
[2020-09-18] MEDS: HEPARIN SODIUM,PORCINE/PF 5,000 UNIT/0.5 ML SYRINGE SQ SCH ×2 (11:55→21:24)
--- NOTE | 2020-09-18 15:16 | P.PN ---
Subjective Progress Note Date: 09/18/20 HISTORY OF PRESENT ILLNESS This is a 49-year-old male patient of [facility], patient follows with Rosalia Gallagher [employer]OCIATE, with past medical history of hypertension, hyperlipidemia, diabetes mellitus type 2, gastroesophageal reflux disease, chronic back pain, SVT, renal cell cancer, peptic ulcer disease, generalized anxiety disorder. Patient is currently residing in [facility]. Patient will not provide details of his incarceration. Patient complains of epigastric pain that started at 5 PM yesterday. He states he tried to walk it off but that did not seem to help. He denies any nausea or vomiting. Patient states he had 3 bowel movements yesterday, 2 in the morning and 1 in the afternoon. He is not passing gas. He denies any blood in the stool. He has history of multiple abdominal surgeries. Patient was brought into [facility] emergency center for evaluation. Patient was found to be afebrile, initial heart rate 121 with repeat 101, blood pressure 119/86, pulse ox 97% on room air. Blood work revealed WBC 18.4, hemoglobin 13.7, platelets 540. INR 1.0. Sodium 134, potassium 4.4, chloride 101, CO2 20, BUN 33 creatinine 2.19. Baseline creatinine 1.5/1.6. Liver function tests were normal. Troponin was normal. Lipase 305. Urinalysis clear with nitrate and leuk on esterase negative. Small amount of blood. Rare bacteria. Chest x-ray normal. CAT scan of the abdomen and pelvis without contrast revealed dilated loops of small bowel in the mid abdomen suggestive partial obstruction. Patient has been admitted and consult in place with Dr. Fernandez. Patient is seen today in the emergency center while waiting for [facility]. 09/14: Patient's diet was advanced yesterday by Dr. Fernandez to clear liquids and patient states as soon as he had eaten he developed significant abdominal pain. Is not passing gas and has not had a bowel movement. Patient has been placed nothing by mouth and Zofran increased to every 6 hours, abdominal x-rays ordered stat which reveals high grade partial or early complete small bowel obstruction. Patient is afebrile, heart rate 95, blood pressure 173/96, pulse ox 90% on room air. Repeat blood work reveals WBC of 21.3, hemoglobin 14.6, platelet count 449. Electrolytes are normal. BUN 25 and creatinine 1.42. Blood sugars are running between 167 and 188. 09/15: Patient had NGT placed yesterday currently to suction. He states he is passing a very small amount of gas, no bowel movements. Abdominal x-ray this morning reveals gradual improving small bowel obstruction with greater degree of air in the left side of the colon and decreasing caliber of dilated small bowel loops. Patient started on IV antibiotics with Zosyn and continued on IV fluids at 125 mL per hour. Patient is afebrile, heart rate 108, blood pressure 127/83, pulse ox 98% on room air. Blood work reveals WBC 14.2, platelet count 476, hemoglobin 13.7. Sodium 141, potassium 4.9, chloride 108, CO2 24, BUN 28 creatinine 1.41. Blood sugars are running between 117 and 169. 09/16: Patient has been afebrile, heart rate 95-113, blood pressure 124/71, pulse ox 95% on room air. WBC 11.8, hemoglobin 11.7, platelet count 412. Blood sugars are running between 102 112. Pro-calcitonin 0.33. Repeat abdominal x-rays this morning reveals overall nonobstructive bowel gas pattern. patient states that he has passing a little bit of gas. NG tube remains in place. Abdomen is soft.plan to continue Zosyn. patient examined at bedside. He had a small bowel movement and is passing gas. Abdominal x-ray was negative for obstruction. Vital signs were obtained temp of 98.6 pulse 82 respiratory rate 18 blood pressure 139/76 no recent labs to compare. Surgery recommended removing nasogastric tube today and starting patient on clear liquid diet patient denies any abdominal pain on assessment denies any nausea or vomiting. Denies any dark stools. Denies any chest pain or breathing difficulty. 09/18 patient examined bedside. He is nauseous this morning. Continue full liquid diet per surgery. Patient continues to have bowel movement and flatus. He denies any abdominal pain, chest pain or shortness of breath. Vitals reviewed patient is afebrile pulse 92 respiratory rate 16 blood pressure 155/88. No recent labs. Repeat labs tomorrow REVIEW OF SYSTEMS Constitutional: No fever, no chills, no night sweats. No weight change. No weakness, fatigue or lethargy. No daytime sleepiness. EENT: No headache. No blurred vision or double vision, no loss of vision. No loss of Hearing, no ringing in the ears, no dizziness. No nasal drainage or congestion. No epistaxis. No sore throat. Lungs: No shortness of breath, cough, no sputum production. No wheezing. Cardiovascular: No chest pain, no lower extremity edema. No palpitations. No paroxysmal nocturnal dyspnea. No orthopnea. No lightheadedness or dizziness. No syncopal episodes. Abdominal: Reports abdominal pain improved no nausea, no vomiting. No diarrhea. No constipation No bloody or tarry stools. Reports loss of appetite. Genitourinary: No dysuria, increased frequency, urgency. No urinary retention. Musculoskeletal: No myalgias. No muscle weakness, no gait dysfunction, no frequent falls. No back pain. No neck pain. Integumentary: No wounds, no lesions. No rash or pruritus. No unusual b ruising. No change in hair or nails. Neurologic: No aphasia. No facial droop. No change in mentation. No head injury. No headache. No paralysis. No paresthesia. Psychiatric: No depression. No anxiety. No mood swings. Endocrine: No abnormal blood sugars. PHYSICAL EXAMINATION Gen: This is an obese 49-year-old male. Patient is resting in bed and appears to be in no acute distress. HEENT: Head is atraumatic, normocephalic. Pupils equal, round. Sclerae is anicteric. NECK: Supple. No JVD. No lymphadenopathy. No thyromegaly. LUNGS: Clear to auscultation. No wheezes or rhonchi. No intercostal retractions. HEART: Regular rate and rhythm. No murmur. ABDOMEN: Bowel sounds present. No masses. abdominal tenderness improved. EXTREMITIES: No pedal edema. No calf tenderness. NEUROLOGICAL: Patient is awake, alert and oriented x3. Cranial nerves 2 through 12 are grossly intact. ASSESSMENT AND PLAN 1. Partial small bowel obstruction. Consult with general surgery appreciated. clear liquid diet . Abdominal x-ray tomorrow 2. Acute kidney injury. Patient is on IV fluids at d to 125 mL/h, recheck renal function in the morning, avoid nephrotoxic agents. Hydrochlorothiazide will be held for today. 3. History of renal cell cancer, stable. 4. Hypertension. Hold hydrochlorothiazide today. Continue lisinopril 10 mg at bedtime, Lopressor 100 mg twice daily. Hydralazine IV will be added for blood pressure control. 5. Hyperlipidemia. Hold fenofibrate 160 mg at bedtime. 6. Diabetes mellitus type 2. Hold glipizide 10 mg daily, metformin 1000 mg twice daily, continue NovoLog scale. 7. Gastroesophageal reflux disease. Continue Protonix 40 mg IV push daily. 8. Chronic back pain. 9. History of SVT. Continue Lopressor. 10. DVT prophylaxis. Heparin subcu. DISCHARGE PLAN Return To [facility] Objective - Vital Signs Vital signs: Vital Signs Temp 98.2 F 09/18/20 11:21 Pulse 92 09/18/20 11:21 Resp 16 09/18/20 11:21 BP 155/88 09/18/20 11:21 Pulse Ox 96 09/18/20 11:21 Intake & Output 09/17/20 09/18/20 09/18/20 18:59 06:59 18:59 Intake Total 360 925 Output Total 1200 900 Balance -840 25 Intake: Intake, IV Titration 25 Amount Piperacillin-Tazobactam 3 25 .375 gm In Sodium Chloride 0.9% 100 ml @ 25 mls/hr IVPB Q8HR [facility] Rx# :[id number] Oral 360 900 Output: Urine 1200 900 Other: Voiding Method Toilet Toilet Toilet # Voids 2 - Labs CBC & Chem 7: 09/16/20 05:18 09/16/20 05:18 Labs: Abnormal Lab Results - Last 24 Hours (Table) 09/17/20 09/17/20 09/18/20 Range/Units 16:53 20:37 07:00 POC Glucose (mg/dL) 104 H 111 H 104 H (75-99) mg/dL
[2020-09-18 17:21] LABS: Glucose,Whole Blood 96 mg/dL (75-99)
[2020-09-18 21:13] LABS: Glucose,Whole Blood 109 mg/dL (75-99)
[2020-09-18] MEDS: lisinopriL 10 MG TAB PO SCH (21:25)
[2020-09-19] MEDS: HYDROmorphone 0.5 MG/0.5 ML SYRINGE IVP PRN ×2 (02:32→19:38)
[2020-09-19 05:26] LABS: Basophils % (A) 0 %; Eosinophils # (A) 0.1 k/uL (0-0.7); Eosinophils % (A) 1 %; HGB 11.5 gm/dL (13.0-17.5); Lymphocytes % (A) 20 %; MCH 29.3 pg (25.0-35.0); MCHC 32.8 g/dL (31.0-37.0); MCV 89.4 fL (80.0-100.0); Mean Platelet Volume 7.2; Monocytes # (A) 0.5 k/uL (0-1.0); Monocytes % (A) 5 %; Neutrophils # (A) 7.2 k/uL (1.3-7.7); Neutrophils % (A) 73 %; Platelet Count 404 k/uL (150-450); RBC 3.91 m/uL (4.30-5.90); RDW 13.6 % (11.5-15.5); WBC 9.9 k/uL (3.8-10.6)
[2020-09-19 07:17] LABS: Glucose,Whole Blood 98 mg/dL (75-99)
--- NOTE | 2020-09-19 07:26 | XR ---
EXAMINATION TYPE: XR abdomen 2V DATE OF EXAM: 09/19/2020 CLINICAL DATA: 49 year-old male upper abdominal pain, follow-up obstruction, [facility] COMPARISON: 09/17/2020 FINDINGS: Surgical clips in the upper abdomen. Air fluid level in stomach. Dilated bowel loop in the left upper to mid abdomen with a caliber up to 6.6 cm. Numerous air-fluid levels remain in the left mid abdomen but mild scattered colonic air is redemonstrated. NG tube has been the interval. No evidence for bib e air. IMPRESSION: Increasing number of air-fluid levels in the left mid abdomen though without any clark small bowel di latation identified. The transverse colon is patulous measuring up to 6.6 cm now though it relatively similar mild overall colonic air. Continued follow-up recommended to exclude any worsening after NG tube removal.
[2020-09-19] MEDS: HYDROmorphone 1 MG/ML 1 ML SYRINGE IVP PRN ×3 (07:40→15:09)
[2020-09-19] MEDS: PANTOPRAZOLE 40 MG/10 ML VIAL IVP SCH (07:41)
[2020-09-19] MEDS: METOPROLOL TARTRATE 50 MG TAB PO SCH ×2 (07:42→21:39)
[2020-09-19] MEDS: INSULIN ASPART (NovoLOG) 100 UNIT/ML VIAL SQ SCH ×4 (07:42→21:39)
[2020-09-19] MEDS: MAGNESIUM OXIDE 400 MG TAB PO SCH (07:42)
[2020-09-19 09:39] LABS: African American GFR (CKD) 90.2 (60.0-200.0); Anion Gap 8.6 mmol/L (4.00-12.00); Calcium 8.5 mg/dL (8.7-10.3); Carbon Dioxide 24.4 mmol/L (21.6-31.8); Non-African American GFR(CKD) 77.9 (60.0-200.0); Potassium 3.5 mmol/L (3.5-5.5)
[2020-09-19] MEDS: SODIUM CHLORIDE 0.9% 1,000 ML IV SCH ×2 (09:43→15:14)
[2020-09-19] MEDS: NON FORMULARY DRUG (Ciclesonide [Alvesco] 6.1 GM Hfa.Aer.Ad) INHALATION SCH (09:43)
[2020-09-19 11:13] LABS: Glucose,Whole Blood 90 mg/dL (75-99)
[2020-09-19] MEDS: hydroCHLOROthiazide 12.5 MG CAP PO SCH (11:16)
[2020-09-19] MEDS: HEPARIN SODIUM,PORCINE/PF 5,000 UNIT/0.5 ML SYRINGE SQ SCH ×2 (11:17→21:39)
[2020-09-19] MEDS: lisinopriL 10 MG TAB PO SCH ×2 (11:17→21:39)
--- NOTE | 2020-09-19 13:40 | P.PN ---
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 Patient is currently residing in [facility]. Patient will not provide details of his incarceration. Patient complains of epigastric pain that started at 5 PM yesterday. He states he tried to walk it off but that did not seem to help. He denies any nausea or vomiting. Patient states he had 3 bowel movements yesterday, 2 in the morning and 1 in the afternoon. He is not passing gas. He denies any blood in the stool. He has history of multiple abdominal surgeries. Patient was brought into [facility] emergency center for evaluation. Patient was found to be afebrile, initial heart rate 121 with repeat 101, blood pressure 119/86, pulse ox 97% on room air. Blood work revealed WBC 18.4, hemoglobin 13.7, platelets 540. INR 1.0. Sodium 134, potassium 4.4, chloride 101, CO2 20, BUN 33 creatinine 2.19. Baseline creatinine 1.5/1.6. Liver function tests were normal. Troponin was normal. Lipase 305. Urinalysis clear with nitrate and leuk on esterase negative. Small amount of blood. Rare bacteria. Chest x-ray normal. CAT scan of the abdomen and pelvis without contrast revealed dilated loops of small bowel in the mid abdomen suggestive partial obstruction. Patient has been admitted and consult in place with Dr. Fernandez. Patient is seen today in the emergency center while waiting for [facility]. 09/14: Patient's diet was advanced yesterday by Dr. Fernandez to clear liquids and patient states as soon as he had eaten he developed significant abdominal pain. Is not passing gas and has not had a bowel movement. Patient has been placed nothing by mouth and Zofran increased to every 6 hours, abdominal x-rays ordered stat which reveals high grade partial or early complete small bowel obstruction. Patient is afebrile, heart rate 95, blood pressure 173/96, pulse ox 90% on room air. Repeat blood work reveals WBC of 21.3, hemoglobin 14.6, platelet count 449. Electrolytes are normal. BUN 25 and creatinine 1.42. Blood sugars are running between 167 and 188. 09/15: Patient had NGT placed yesterday currently to suction. He states he is passing a very small amount of gas, no bowel movements. Abdominal x-ray this morning reveals gradual improving small bowel obstruction with greater degree of air in the left side of the colon and decreasing caliber of dilated small bowel loops. Patient started on IV antibiotics with Zosyn and continued on IV fluids at 125 mL per hour. Patient is afebrile, heart rate 108, blood pressure 127/83, pulse ox 98% on room air. Blood work reveals WBC 14.2, platelet count 476, hemoglobin 13.7. Sodium 141, potassium 4.9, chloride 108, CO2 24, BUN 28 creatinine 1.41. Blood sugars are running between 117 and 169. 09/16: Patient has been afebrile, heart rate 95-113, blood pressure 124/71, pulse ox 95% on room air. WBC 11.8, hemoglobin 11.7, platelet count 412. Blood sugars are running between 102 112. Pro-calcitonin 0.33. Repeat abdominal x-rays this morning reveals overall nonobstructive bowel gas pattern. patient states that he has passing a little bit of gas. NG tube remains in place. Abdomen is soft.plan to continue Zosyn. 09/17 patient examined at bedside. He had a small bowel movement and is passing gas. Abdominal x-ray was negative for obstruction. Vital signs were obtained temp of 98.6 pulse 82 respiratory rate 18 blood pressure 139/76 no recent labs to compare. Surgery recommended removing nasogastric tube today and starting patient on clear liquid diet patient denies any abdominal pain on assessment denies any nausea or vomiting. Denies any dark stools. Denies any chest pain or breathing difficulty. 09/18 patient examined bedside. He is nauseous this morning. Continue full liquid diet per surgery. Patient continues to have bowel movement and flatus. He denies any abdominal pain, chest pain or shortness of breath. Vitals reviewed patient is afebrile pulse 92 respiratory rate 16 blood pressure 155/88. No recent labs. Repeat labs tomorrow 09/19: Patient has been continued on clear liquid diet, IV fluids at 125 mL per hour. Antibiotics were discontinued. Abdominal x-ray reveals increasing number of air fluid levels in the mid left abdominal bowel without any clark small bowel dilatation identified. The transverse colon is patulous measuring up to 6.6 cm though relatively similar mild overall colonic air. Patient has been afebrile, heart rate 91, blood pressure 160/93, pulse ox 90% on room air. Hydrochlorothiazide resumed and lisinopril increased to twice daily dosing. Repeat blood work this morning reveals WBC 9.9, hemoglobin 11.5, platelet count 404. Electrolytes and renal function normal. Blood sugars running between 90 and 119. REVIEW OF SYSTEMS Constitutional: No fever, no chills, no night sweats. No weight change. No weakness, fatigue or lethargy. No daytime sleepiness. EENT: No headache. No blurred vision or double vision, no loss of vision. No loss of Hearing, no ringing in the ears, no dizziness. No nasal drainage or congestion. No epistaxis. No sore throat. Lungs: No shortness of breath, cough, no sputum production. No wheezing. Cardiovascular: No chest pain, no lower extremity edema. No palpitations. No paroxysmal nocturnal dyspnea. No orthopnea. No lightheadedness or dizziness. No syncopal episodes. Abdominal: Reports abdominal pain improved no nausea, no vomiting. No diarrhea. No constipation No bloody or tarry stools. Reports loss of appetite. Genitourinary: No dysuria, increased frequency, urgency. No urinary retention. Musculoskeletal: No myalgias. No muscle weakness, no gait dysfunction, no frequent falls. No back pain. No neck pain. Integumentary: No wounds, no lesions. No rash or pruritus. No unusual bruising. No change in hair or nails. Neurologic: No aphasia. No facial droop. No change in mentation. No head injury. No headache. No paralysis. No paresthesia. Psychiatric: No depression. No anxiety. No mood swings. Endocrine: No abnormal blood sugars. PHYSICAL EXAMINATION Gen: This is an obese 49-year-old male. Patient is resting in bed and appears to be in no acute distress. HEENT: Head is atraumatic, normocephalic. Pupils equal, round. Sclerae is anicteric. NECK: Supple. No JVD. No lymphadenopathy. No thyromegaly. LUNGS: Clear to auscultation. No wheezes or rhonchi. No intercostal retractions. HEART: Regular rate and rhythm. No murmur. ABDOMEN: Bowel sounds present. No masses. abdominal tenderness improved. EXTREMITIES: No pedal edema. No calf tenderness. NEUROLOGICAL: Patient is awake, alert and oriented x3. Cranial nerves 2 through 12 are grossly intact. ASSESSMENT AND PLAN 1. Partial small bowel obstruction. Consult with general surgery appreciated. clear liquid diet. Abdominal x-ray tomorrow 2. Acute kidney injury. Patient is on IV fluids at d to 125 mL/h, recheck renal function in the morning, avoid nephrotoxic agents. Hydrochlorothiazide will be held for today. 3. History of renal cell cancer, stable. 4. Hypertension. Resume hydrochlorothiazide and increase frequency of lisinopril to 10 mg twice daily, continue Lopressor 100 mg twice daily. Hydralazine IV will be added for blood pressure control. 5. Hyperlipidemia. Hold fenofibrate 160 mg at bedtime. 6. Diabetes mellitus type 2. Hold glipizide 10 mg daily, metformin 1000 mg twice daily, continue NovoLog scale. 7. Gastroesophageal reflux disease. Continue Protonix 40 mg IV push daily. 8. Chronic back pain. 9. History of SVT. Continue Lopressor. 10. DVT prophylaxis. Heparin subcu. DISCHARGE PLAN Return To Correction Impression and plan of care have been directed as dictated by the signing physician. Luly Coffey nurse practitioner acting as scribe for signing helen sorto. Objective - Vital Signs Vital signs: Vital Signs Temp 98.5 F 09/19/20 05:00 Pulse 91 09/19/20 05:00 Resp 20 09/19/20 05:00 BP 160/93 09/19/20 05:00 Pulse Ox 98 09/19/20 05:00 Intake & Output 09/18/20 09/19/20 09/19/20 18:59 06:59 18:59 Intake Total 360 800 Balance 360 800 Intake: Oral 360 800 Other: Voiding Method Toilet Toilet # Voids 3 2 # Bowel Movements 1 - Labs CBC & Chem 7: 09/19/20 05:05 09/19/20 05:05 Labs: Abnormal Lab Results - Last 24 Hours (Table) 09/18/20 09/19/20 Range/Units 21:06 05:05 RBC 3.91 L (4.30-5.90) m/uL Hgb 11.5 L (13.0-17.5) gm/dL Hct 35.0 L (39.0-53.0) % POC Glucose (mg/dL) 109 H (75-99) mg/dL
[2020-09-19 17:53] LABS: Glucose,Whole Blood 83 mg/dL (75-99)
[2020-09-19] MEDS: ONDANSETRON 4 MG/2 ML VIAL IVP PRN (21:39)
[2020-09-19 21:44] LABS: Glucose,Whole Blood 85 mg/dL (75-99)
[2020-09-20] MEDS: HYDROmorphone 0.5 MG/0.5 ML SYRINGE IVP PRN ×2 (00:20→05:21)
[2020-09-20] MEDS: NON FORMULARY DRUG (Ciclesonide [Alvesco] 6.1 GM Hfa.Aer.Ad) INHALATION SCH ×3 (02:01→21:21)
[2020-09-20] MEDS: ONDANSETRON 4 MG/2 ML VIAL IVP PRN ×4 (04:01→21:04)
[2020-09-20] MEDS: SODIUM CHLORIDE 0.9% 1,000 ML IV SCH ×2 (06:30→10:24)
[2020-09-20 07:05] LABS: Glucose,Whole Blood 101 mg/dL (75-99)
[2020-09-20] MEDS: PANTOPRAZOLE 40 MG/10 ML VIAL IVP SCH (07:23)
[2020-09-20] MEDS: lisinopriL 10 MG TAB PO SCH ×2 (07:24→21:05)
[2020-09-20] MEDS: METOPROLOL TARTRATE 50 MG TAB PO SCH ×2 (07:24→21:04)
[2020-09-20] MEDS: MAGNESIUM OXIDE 400 MG TAB PO SCH (07:24)
[2020-09-20] MEDS: hydroCHLOROthiazide 12.5 MG CAP PO SCH (07:24)
[2020-09-20] MEDS: INSULIN ASPART (NovoLOG) 100 UNIT/ML VIAL SQ SCH ×3 (07:25→21:21)
--- NOTE | 2020-09-20 08:37 | XR ---
EXAMINATION TYPE: XR abdomen 2V DATE OF EXAM: 09/20/2020 CLINICAL DATA: 49 year-old male follow-up small bowel obstruction, [facility] COMPARISON: 09/19/2020 FINDINGS: Multiple surgical clips throughout the abdomen. Progressive distention of the stomach now with worsen ing small bowel dilatation measuring up to 6.3 cm and multiple air-fluid levels. Decreasing amount of colonic air with small air-fluid levels in the right side of the colon. No evidence for free intraperitoneal air. IMPRESSION: Interval significant worsening now with clark small bowel obstruction, small bowel loops dilated up t o 6.3 cm.
[2020-09-20] MEDS: HYDROmorphone 1 MG/ML 1 ML SYRINGE IVP PRN ×4 (08:43→21:04)
--- NOTE | 2020-09-20 11:29 | P.PN ---
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 Patient is currently residing in [facility]. Patient will not provide details of his incarceration. Patient complains of epigastric pain that started at 5 PM yesterday. He states he tried to walk it off but that did not seem to help. He denies any nausea or vomiting. Patient states he had 3 bowel movements yesterday, 2 in the morning and 1 in the afternoon. He is not passing gas. He denies any blood in the stool. He has history of multiple abdominal surgeries. Patient was brought into [facility] emergency center for evaluation. Patient was found to be afebrile, initial heart rate 121 with repeat 101, blood pressure 119/86, pulse ox 97% on room air. Blood work revealed WBC 18.4, hemoglobin 13.7, platelets 540. INR 1.0. Sodium 134, potassium 4.4, chloride 101, CO2 20, BUN 33 creatinine 2.19. Baseline creatinine 1.5/1.6. Liver function tests were normal. Troponin was normal. Lipase 305. Urinalysis clear with nitrate and leuk on esterase negative. Small amount of blood. Rare bacteria. Chest x-ray normal. CAT scan of the abdomen and pelvis without contrast revealed dilated loops of small bowel in the mid abdomen suggestive partial obstruction. Patient has been admitted and consult in place with Dr. Fernandez. Patient is seen today in the emergency center while waiting for [facility]. 09/14: Patient's diet was advanced yesterday by Dr. Fernandez to clear liquids and patient states as soon as he had eaten he developed significant abdominal pain. Is not passing gas and has not had a bowel movement. Patient has been placed nothing by mouth and Zofran increased to every 6 hours, abdominal x-rays ordered stat which reveals high grade partial or early complete small bowel obstruction. Patient is afebrile, heart rate 95, blood pressure 173/96, pulse ox 90% on room air. Repeat blood work reveals WBC of 21.3, hemoglobin 14.6, platelet count 449. Electrolytes are normal. BUN 25 and creatinine 1.42. Blood sugars are running between 167 and 188. 09/15: Patient had NGT placed yesterday currently to suction. He states he is passing a very small amount of gas, no bowel movements. Abdominal x-ray this morning reveals gradual improving small bowel obstruction with greater degree of air in the left side of the colon and decreasing caliber of dilated small bowel loops. Patient started on IV antibiotics with Zosyn and continued on IV fluids at 125 mL per hour. Patient is afebrile, heart rate 108, blood pressure 127/83, pulse ox 98% on room air. Blood work reveals WBC 14.2, platelet count 476, hemoglobin 13.7. Sodium 141, potassium 4.9, chloride 108, CO2 24, BUN 28 creatinine 1.41. Blood sugars are running between 117 and 169. 09/16: Patient has been afebrile, heart rate 95-113, blood pressure 124/71, pulse ox 95% on room air. WBC 11.8, hemoglobin 11.7, platelet count 412. Blood sugars are running between 102 112. Pro-calcitonin 0.33. Repeat abdominal x-rays this morning reveals overall nonobstructive bowel gas pattern. patient states that he has passing a little bit of gas. NG tube remains in place. Abdomen is soft.plan to continue Zosyn. 09/17 patient examined at bedside. He had a small bowel movement and is passing gas. Abdominal x-ray was negative for obstruction. Vital signs were obtained temp of 98.6 pulse 82 respiratory rate 18 blood pressure 139/76 no recent labs to compare. Surgery recommended removing nasogastric tube today and starting patient on clear liquid diet patient denies any abdominal pain on assessment denies any nausea or vomiting. Denies any dark stools. Denies any chest pain or breathing difficulty. 09/18 patient examined bedside. He is nauseous this morning. Continue full liquid diet per surgery. Patient continues to have bowel movement and flatus. He denies any abdominal pain, chest pain or shortness of breath. Vitals reviewed patient is afebrile pulse 92 respiratory rate 16 blood pressure 155/88. No recent labs. Repeat labs tomorrow 09/19: Patient has been continued on clear liquid diet, IV fluids at 125 mL per hour. Antibiotics were discontinued. Abdominal x-ray reveals increasing number of air fluid levels in the mid left abdominal bowel without any clark small bowel dilatation identified. The transverse colon is patulous measuring up to 6.6 cm though relatively similar mild overall colonic air. Patient has been afebrile, heart rate 91, blood pressure 160/93, pulse ox 90% on room air. Hydrochlorothiazide resumed and lisinopril increased to twice daily dosing. Repeat blood work this morning reveals WBC 9.9, hemoglobin 11.5, platelet count 404. Electrolytes and renal function normal. Blood sugars running between 90 and 119. /: Patient remains afebrile, heart rate 80, blood pressure 118/80, pulse ox 96% on room air. Patient has had retching increasing abdominal distention. He states he is having a little small bowel movements but no gas. Repeat abdominal x-rays reveals interval significant worsening now with clark small bowel obstruction, small bowel loops dilated up to 6.3 cm his been made nothing by mouth, NG tube ordered, patient is scheduled for surgery tomorrow with Dr. Fernandez. REVIEW OF SYSTEMS Constitutional: No fever, no chills, no night sweats. No weight change. No weakness, fatigue or lethargy. No daytime sleepiness. EENT: No headache. No blurred vision or double vision, no loss of vision. No loss of Hearing, no ringing in the ears, no dizziness. No nasal drainage or congestion. No epistaxis. No sore throat. Lungs: No shortness of breath, cough, no sputum production. No wheezing. Cardiovascular: No chest pain, no lower extremity edema. No palpitations. No paroxysmal nocturnal dyspnea. No orthopnea. No lightheadedness or dizziness. No syncopal episodes. Abdominal: Reports abdominal pain worsen, reports nausea, reports vomiting. No diarrhea. No constipation No bloody or tarry stools. Reports loss of appetite. Genitourinary: No dysuria, increased frequency, urgency. No urinary retention. Musculoskeletal: No myalgias. No muscle weakness, no gait dysfunction, no frequent falls. No back pain. No neck pain. Integumentary: No wounds, no lesions. No rash or pruritus. No unusual bruising . No change in hair or nails. Neurologic: No aphasia. No facial droop. No change in mentation. No head injury. No headache. No paralysis. No paresthesia. Psychiatric: No depression. No anxiety. No mood swings. Endocrine: No abnormal blood sugars. PHYSICAL EXAMINATION Gen: This is an obese 49-year-old male. Patient is resting in bed and appears to be in no acute distress. HEENT: Head is atraumatic, normocephalic. Pupils equal, round. Sclerae is anicte saurabh. NECK: Supple. No JVD. No lymphadenopathy. No thyromegaly. LUNGS: Clear to auscultation. No wheezes or rhonchi. No intercostal retractions. HEART: Regular rate and rhythm. No murmur. ABDOMEN: Bowel sounds present. No masses. Generalized abdominal distention and tenderness. EXTREMITIES: No pedal edema. No calf tenderness. NEUROLOGICAL: Patient is awake, alert and oriented x3. Cranial nerves 2 through 12 are grossly intact. ASSESSMENT AND PLAN 1. Partial small bowel obstruction, worsening. Consult with general surgery appreciated. Nothing by mouth, NG tube, surgical intervention scheduled for tomorrow 2. Acute kidney injury. Patient is on IV fluids at d to 125 mL/h, recheck renal function in the morning, avoid nephrotoxic agents. 3. History of renal cell cancer, stable. 4. Hypertension. Resume hydrochlorothiazide and increase frequency of l isinopril to 10 mg twice daily, continue Lopressor 100 mg twice daily. Hydralazine IV will be added for blood pressure control. 5. Hyperlipidemia. Hold fenofibrate 160 mg at bedtime. 6. Diabetes mellitus type 2. Hold glipizide 10 mg daily, metformin 1000 mg twice daily, continue NovoLog scale. 7. Gastroesophageal reflux disease. Continue Protonix 40 mg IV push daily. 8. Chronic back pain. 9. History of SVT. Continue Lopressor. 10. DVT prophylaxis. Heparin subcu. DISCHARGE PLAN Return To Senior Living Impression and plan of care have been directed as dictated by the signing physician. Luly Coffey nurse practitioner acting as scribe for signing physician. Objective - Vital Signs Vital signs: Vital Signs Temp 98.3 F 09/20/20 05:00 Pulse 80 09/20/20 05:00 Resp 20 09/20/20 05:00 BP 118/80 09/20/20 05:00 Pulse Ox 96 09/20/20 05:00 Intake & Output 09/19/20 09/20/20 09/20/20 18:59 06:59 18:59 Intake Total 300 Balance 300 Weight 127.006 kg Intake: Oral 300 Other: Voiding Method Toilet # Voids 2 2 # Bowel Movements 2 - Labs CBC & Chem 7: 09/19/20 05:05 09/19/20 05:05 Labs: Abnormal Lab Results - Last 24 Hours (Table) 09/19/20 09/20/20 Range/Units 05:05 07:01 BUN/Creatinine Ratio 10.00 L (12.00-20.00) Ratio Glucose 119 H (70-110) mg/dL POC Glucose (mg/dL) 101 H (75-99) mg/dL Calcium 8.5 L (8.7-10.3) mg/dL
[2020-09-20 11:50] LABS: Glucose,Whole Blood 85 mg/dL (75-99)
[2020-09-20] MEDS: HEPARIN SODIUM,PORCINE/PF 5,000 UNIT/0.5 ML SYRINGE SQ SCH (11:55)
[2020-09-20] MEDS ORDERED: DEXAMETHASONE SOD PHOSPHATE 4 MG/ML 1 ML VIAL IV ONE (14:20)
--- NOTE | 2020-09-20 14:27 | P.PN ---
Subjective Progress Note Date: 09/20/20 CHIEF COMPLAINT: Abdominal pain HISTORY OF PRESENT ILLNESS: Patient called for his small bowel obstruction. Patient had increased nausea and dry heaves this morning. He had a liquidy bowel movement after his x-ray this morning. He denies any flatus. After his bowel movement he feels a slight improvement in his abdominal pain. He's currently on a clear liquid diet. Abdominal x-ray from this morning shows interval significant worsening now with Aubrey small bowel obstruction, small bowel loops dilated up to 6.3 cm. Afebrile. Patient currently does not have NG tube. Patient seen and examined with Dr. Fernandez PHYSICAL EXAM: VITAL SIGNS: Reviewed. GENERAL: Well-developed in no acute distress. HEENT: No sclera icterus. Extraocular movements grossly intact. Moist buccal mucosa. Head is atraumatic, normocephalic. ABDOMEN: Soft. Distended. Epigastric tenderness NEUROLOGIC: Alert and oriented. Cranial nerves II through XII grossly intact. ASSESSMENT: 1. Small bowel obstruction PLAN: -Patient is tentatively scheduled for exploratory laparotomy, lysis of adhesions for tomorrow, 09/21/[address] Fernandez -Continue clear liquid diet and then nothing by mouth after midnight in case patient does require surgery. -Continue GI prophylaxis Protonix and DVT prophylaxis subcu heparin Physician Alterations Manager note has been reviewed by physician. Signing provider agrees with the documented findings, assessment, and plan of care. Objective - Vital Signs Vital signs: Vital Signs Temp 98.7 F 09/20/20 12:12 Pulse 91 09/20/20 12:12 Resp 17 09/20/20 12:12 BP 152/101 09/20/20 12:12 Pulse Ox 97 09/20/20 12:12 Intake & Output 09/19/20 09/20/20 09/20/20 18:59 06:59 18:59 Intake Total 300 Balance 300 Weight 127.006 kg Intake: Oral 300 Other: Voiding Method Toilet # Voids 2 2 # Bowel Movements 2 - Labs CBC & Chem 7: 09/19/20 05:05 09/19/20 05:05 Labs: Abnormal Lab Results - Last 24 Hours (Table) 09/20/20 Range/Units 07:01 POC Glucose (mg/dL) 101 H (75-99) mg/dL
[2020-09-20] MEDS ORDERED: LACTATED RINGERS 1,000 ML IV SCH (14:30)
[2020-09-20 17:05] LABS: Glucose,Whole Blood 74 mg/dL (75-99)
[2020-09-20 20:11] LABS: Glucose,Whole Blood 79 mg/dL (75-99)
[2020-09-21] MEDS: HEPARIN SODIUM,PORCINE/PF 5,000 UNIT/0.5 ML SYRINGE SQ SCH ×4 (01:06→22:42)
[2020-09-21] MEDS: SODIUM CHLORIDE 0.9% 1,000 ML IV SCH ×2 (01:06→23:53)
[2020-09-21] MEDS: HYDROmorphone 1 MG/ML 1 ML SYRINGE IVP PRN ×7 (01:08→23:54)
[2020-09-21] MEDS ORDERED: DEXAMETHASONE SOD PHOSPHATE 4 MG/ML 1 ML VIAL IV ONE ×2 (06:00→11:08)
[2020-09-21 06:18] LABS: INR 0.9 (<1.2); Partial Thromboplastin Time 23.6 sec (22.0-30.0); Prothrombin Time 10.2 sec (9.0-12.0)
[2020-09-21 06:21] LABS: African American GFR (CKD) >90 (>60 ml/min/1.73 sqM); Anion Gap 13 mmol/L; Blood Urea Nitrogen 10 mg/dL (9-20); Calcium 8.6 mg/dL (8.4-10.2); Carbon Dioxide 21 mmol/L (22-30); Chloride 100 mmol/L (98-107); Glucose 100 mg/dL (74-99); Non-African American GFR(CKD) >90 (>60 ml/min/1.73 sqM); Potassium 3.9 mmol/L (3.5-5.1); Sodium 134 mmol/L (137-145)
[2020-09-21 07:00] LABS: Basophils # (A) 0.1 k/uL (0-0.2); Basophils % (A) 0 %; Eosinophils % (A) 0 %; HCT 37.2 % (39.0-53.0); HGB 12.2 gm/dL (13.0-17.5); Lymphocytes # (A) 1.9 k/uL (1.0-4.8); Lymphocytes % (A) 12 %; MCH 29.4 pg (25.0-35.0); MCHC 32.8 g/dL (31.0-37.0); MCV 89.6 fL (80.0-100.0); Monocytes % (A) 6 %; Neutrophils % (A) 80 %; Platelet Count 437 k/uL (150-450); RBC 4.15 m/uL (4.30-5.90); RDW 13.1 % (11.5-15.5); WBC 16.2 k/uL (3.8-10.6)
[2020-09-21 07:09] LABS: Glucose,Whole Blood 97 mg/dL (75-99)
[2020-09-21] MEDS: PANTOPRAZOLE 40 MG/10 ML VIAL IVP SCH (07:25)
[2020-09-21 10:57] LABS: Glucose,Whole Blood 83 mg/dL (75-99)
--- NOTE | 2020-09-21 10:57 | P.PN ---
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 Patient is currently residing in [facility]. Patient will not provide details of his incarceration. Patient complains of epigastric pain that started at 5 PM yesterday. He states he tried to walk it off but that did not seem to help. He denies any nausea or vomiting. Patient states he had 3 bowel movements yesterday, 2 in the morning and 1 in the afternoon. He is not passing gas. He denies any blood in the stool. He has history of multiple abdominal surgeries. Patient was brought into [facility] emergency center for evaluation. Patient was found to be afebrile, initial heart rate 121 with repeat 101, blood pressure 119/86, pulse ox 97% on room air. Blood work revealed WBC 18.4, hemoglobin 13.7, platelets 540. INR 1.0. Sodium 134, potassium 4.4, chloride 101, CO2 20, BUN 33 creatinine 2.19. Baseline creatinine 1.5/1.6. Liver function tests were normal. Troponin was normal. Lipase 305. Urinalysis clear with nitrate and leuk on esterase negative. Small amount of blood. Rare bacteria. Chest x-ray normal. CAT scan of the abdomen and pelvis without contrast revealed dilated loops of small bowel in the mid abdomen suggestive partial obstruction. Patient has been admitted and consult in place with Dr. Fernandez. Patient is seen today in the emergency center while waiting for [facility]. 09/14: Patient's diet was advanced yesterday by Dr. Fernandez to clear liquids and patient states as soon as he had eaten he developed significant abdominal pain. Is not passing gas and has not had a bowel movement. Patient has been placed nothing by mouth and Zofran increased to every 6 hours, abdominal x-rays ordered stat which reveals high grade partial or early complete small bowel obstruction. Patient is afebrile, heart rate 95, blood pressure 173/96, pulse ox 90% on room air. Repeat blood work reveals WBC of 21.3, hemoglobin 14.6, platelet count 449. Electrolytes are normal. BUN 25 and creatinine 1.42. Blood sugars are running between 167 and 188. 09/15: Patient had NGT placed yesterday currently to suction. He states he is passing a very small amount of gas, no bowel movements. Abdominal x-ray this morning reveals gradual improving small bowel obstruction with greater degree of air in the left side of the colon and decreasing caliber of dilated small bowel loops. Patient started on IV antibiotics with Zosyn and continued on IV fluids at 125 mL per hour. Patient is afebrile, heart rate 108, blood pressure 127/83, pulse ox 98% on room air. Blood work reveals WBC 14.2, platelet count 476, hemoglobin 13.7. Sodium 141, potassium 4.9, chloride 108, CO2 24, BUN 28 creatinine 1.41. Blood sugars are running between 117 and 169. 09/16: Patient has been afebrile, heart rate 95-113, blood pressure 124/71, pulse ox 95% on room air. WBC 11.8, hemoglobin 11.7, platelet count 412. Blood sugars are running between 102 112. Pro-calcitonin 0.33. Repeat abdominal x-rays this morning reveals overall nonobstructive bowel gas pattern. patient states that he has passing a little bit of gas. NG tube remains in place. Abdomen is soft.plan to continue Zosyn. 09/17 patient examined at bedside. He had a small bowel movement and is passing gas. Abdominal x-ray was negative for obstruction. Vital signs were obtained temp of 98.6 pulse 82 respiratory rate 18 blood pressure 139/76 no recent labs to compare. Surgery recommended removing nasogastric tube today and starting patient on clear liquid diet patient denies any abdominal pain on assessment denies any nausea or vomiting. Denies any dark stools. Denies any chest pain or breathing difficulty. 09/18 patient examined bedside. He is nauseous this morning. Continue full liquid diet per surgery. Patient continues to have bowel movement and flatus. He denies any abdominal pain, chest pain or shortness of breath. Vitals reviewed patient is afebrile pulse 92 respiratory rate 16 blood pressure 155/88. No recent labs. Repeat labs tomorrow 09/19: Patient has been continued on clear liquid diet, IV fluids at 125 mL per hour. Antibiotics were discontinued. Abdominal x-ray reveals increasing number of air fluid levels in the mid left abdominal bowel without any clark small bowel dilatation identified. The transverse colon is patulous measuring up to 6.6 cm though relatively similar mild overall colonic air. Patient has been afebrile, heart rate 91, blood pressure 160/93, pulse ox 90% on room air. Hydrochlorothiazide resumed and lisinopril increased to twice daily dosing. Repeat blood work this morning reveals WBC 9.9, hemoglobin 11.5, platelet count 404. Electrolytes and renal function normal. Blood sugars running between 90 and 119. 09/20: Patient remains afebrile, heart rate 80, blood pressure 118/80, pulse ox 96% on room air. Patient has had retching increasing abdominal distention. He states he is having a little small bowel movements but no gas. Repeat abdominal x-rays reveals interval significant worsening now with clark small bowel obstruction, small bowel loops dilated up to 6.3 cm his been made nothing by mouth, NG tube ordered, patient is scheduled for surgery tomorrow with Dr. Fernandez. 09/21: Patient found to have very good bowel sounds this morning he states he had a bowel movement. NG tube was never placed yesterday and he was continued on clear liquids. Repeat abdominal x-ray ordered. Patient is scheduled for surgical intervention today with Dr. Fernandez. He remains afebrile, heart rate 90, blood pressure 145/90, pulse ox 96% on room air. Repeat blood work reveals WBC 16.2, hemoglobin 12.2, platelet count 437. Sodium 134, potassium 3.9, chloride 100, CO2 21, BUN 10 and creatinine 0.96. Blood sugars are running between 74 and 100. REVIEW OF SYSTEMS Constitutional: No fever, no chills, no night sweats. No weight change. No weakness, fatigue or lethargy. No daytime sleepiness. EENT: No headache. No blurred vision or double vision, no loss of vision. No loss of Hearing, no ringing in the ears, no dizziness. No nasal drainage or congestion. No epistaxis. No sore throat. Lungs: No shortness of breath, cough, no sputum production. No wheezing. Cardiovascular: No chest pain, no lower extremity edema. No palpitations. No paroxysmal nocturnal dyspnea. No orthopnea. No lightheadedness or dizziness. No syncopal episodes. Abdominal: Reports abdominal pain improved, denies nausea, denies vomiting. No diarrhea. No constipation No bloody or tarry stools. Reports loss of appetite. Genitourinary: No dysuria, increased frequency, urgency. No urinary retention. Musculoskeletal: No myalgias. No muscle weakness, no gait dysfunction, no frequent falls. No back pain. No neck pain. Integumentary: No wounds, no lesions. No rash or pruritus. No unusual bruising. No change in hair or nails. Neurologic: No aphasia. No facial droop. No change in mentation. No head injury. No headache. No paralysis. No paresthesia. Psychiatric: No depression. No anxiety. No mood swings. Endocrine: No abnormal blood sugars. PHYSICAL EXAMINATION Gen: This is an obese 49-year-old male. Patient is resting in bed and appears to be in no acute distress. HEENT: Head is atraumatic, normocephalic. Pupils equal, round. Sclerae is anicteric. NECK: Supple. No JVD. No lymphadenopathy. No thyromegaly. LUNGS: Clear to auscultation. No wheezes or rhonchi. No intercostal retr actions. HEART: Regular rate and rhythm. No murmur. ABDOMEN: Bowel sounds present. No masses. Generalized abdominal distention and tenderness. EXTREMITIES: No pedal edema. No calf tenderness. NEUROLOGICAL: Patient is awake, alert and oriented x3. Cranial nerves 2 through 12 are grossly intact. ASSESSMENT AND PLAN 1. Partial small bowel obstruction, worsening. Consult with general surgery appreciated. Nothing by mouth, surgical intervention scheduled for today 2. Acute kidney injury. Patient is on IV fluids at d to 125 mL/h, recheck renal function in the morning, avoid nephrotoxic agents. 3. History of renal cell cancer, stable. 4. Hypertension. Resume hydrochlorothiazide and increase frequency of lisinopril to 10 mg twice daily, continue Lopressor 100 mg twice daily. Hydralazine IV will be added for blood pressure control. 5. Hyperlipidemia. Hold fenofibrate 160 mg at bedtime. 6. Diabetes mellitus type 2. Hold glipizide 10 mg daily, metformin 1000 mg twice daily, continue NovoLog scale. 7. Gastroesophageal reflux disease. Continue Protonix 40 mg IV push daily. 8. Chronic back pain. 9. History of SVT. Continue Lopressor. 10. DVT prophylaxis. Heparin subcu. DISCHARGE PLAN Return To Prison Impression and plan of care have been directed as dictated by the signing physician. Luly Coffey nurse practitioner acting as scribe for signing physician. Objective - Vital Signs Vital signs: Vital Signs Temp 98 F 09/21/20 05:00 Pulse 90 09/21/20 05:00 Resp 16 09/21/20 05:00 BP 145/90 09/21/20 05:00 Pulse Ox 96 09/21/20 05:00 Intake & Output 09/20/20 09/21/20 09/21/20 18:59 06:59 18:59 Intake Total 1080 Balance 1080 Intake: Intake, IV Titration 900 Amount Sodium Chloride 0.9% 1, 900 000 ml @ 125 mls/hr IV . Q8H [facility] Rx#:[id number] Oral 180 Other: Voiding Method Toilet Toilet # Voids 3 2 # Bowel Movements 3 - Labs CBC & Chem 7: 09/21/20 05:49 09/21/20 05:49 Labs: Abnormal Lab Results - Last 24 Hours (Table) 09/20/20 09/21/20 09/21/20 Range/Units 17:02 05:49 05:49 WBC 16.2 H (3.8-10.6) k/uL RBC 4.15 L (4.30-5.90) m/uL Hgb 12.2 L (13.0-17.5) gm/dL Hct 37.2 L (39.0-53.0) % Neutrophils # 13.0 H (1.3-7.7) k/uL Sodium 134 L (137-145) mmol/L Carbon Dioxide 21 L (22-30) mmol/L Glucose 100 H (74-99) mg/dL POC Glucose (mg/dL) 74 L (75-99) mg/dL
[2020-09-21] MEDS: LACTATED RINGERS 1,000 ML IV SCH (10:59)
[2020-09-21] MEDS: INSULIN ASPART (NovoLOG) 100 UNIT/ML VIAL SQ SCH ×4 (10:59→21:05)
[2020-09-21] MEDS: hydroCHLOROthiazide 12.5 MG CAP PO SCH (11:00)
[2020-09-21] MEDS: NON FORMULARY DRUG (Ciclesonide [Alvesco] 6.1 GM Hfa.Aer.Ad) INHALATION SCH (11:00)
[2020-09-21] MEDS: METOPROLOL TARTRATE 50 MG TAB PO SCH ×3 (11:00→21:21)
[2020-09-21] MEDS: MAGNESIUM OXIDE 400 MG TAB PO SCH (11:00)
[2020-09-21] MEDS: lisinopriL 10 MG TAB PO SCH ×3 (11:00→21:21)
[2020-09-21] MEDS ORDERED: LACTATED RINGERS 1,000 ML IV ONE ×2 (11:03→12:41)
[2020-09-21] MEDS: ONDANSETRON 4 MG/2 ML VIAL IVP PRN (11:08)
[2020-09-21] MEDS ORDERED: ceFAZolin 3 GM in SODIUM CHLORIDE 0.9% 100 ML IVPB ONE (11:15)
[2020-09-21] MEDS ORDERED: GLYCOPYRROLATE 0.2 MG/ML 2 ML VIAL ONE (11:20)
[2020-09-21] MEDS ORDERED: NEOSTIGMINE 1 MG/ML 10 ML VIAL ONE (11:20)
[2020-09-21] MEDS ORDERED: fentaNYL (PF) 50 MCG/ML 2 ML AMP ONE (11:20)
[2020-09-21] MEDS ORDERED: ROCURONIUM 10 MG/ML (5 ML VIAL) IV ONE (11:20)
[2020-09-21] MEDS ORDERED: SUCCINYLCHOLINE CHLORIDE VIAL 200 MG/10 ML VIAL IV ONE (11:20)
[2020-09-21] MEDS ORDERED: MIDAZOLAM 2 MG/2 ML VIAL ONE (11:20)
[2020-09-21] MEDS ORDERED: PROPOFOL 10 MG/ML 20 ML VIAL IV ONE (11:20)
[2020-09-21] MEDS ORDERED: KETAMINE 10 MG/ML 20 ML VIAL ONE (11:20)
[2020-09-21] MEDS ORDERED: LIDOCAINE 1% INJ 10MG/ML (20 ML MDV) ONE (11:20)
[2020-09-21] MEDS ORDERED: SODIUM CHLORIDE 0.9% 150 ML with ceFAZolin 3,000 MG IV ONE ×2 (12:12)
--- NOTE | 2020-09-21 12:36 | P.OP ---
Date of Procedure: 09/21/20 Preoperative Diagnosis: Small bowel obstruction Postoperative Diagnosis: Small bowel obstruction Incisional hernia Procedure(s) Performed: Partial omentectomy Lysis of extensive adhesions Repair of incisional hernia Anesthesia: LISSETT Surgeon: Justin Fernandez Estimated Blood Loss (ml): 10 Pathology: other (Omentum) Condition: stable Disposition: PACU Description of Procedure: The patient's placed on the operative table in the supine position. He received general. His abdomen was prepped and draped usual sterile fashion. The abdomen was entered through midline incision. The skin was incised. Scar. There was an incisional hernia encountered. Electrocautery the subcutaneous tissue divided in the perineal cavity is entered. There were extensive adhesions throughout the pleural cavity. Approximately 45 minutes of operative time used to lyse adhesions. The proximal bowel. Be dilated. The adhesions were lysed there was no definitive transition zone. Small piece of nonviable omentum was dissected free such cautery and sent to pathology. This point the abdomen was irrigated. The fascia was closed with looped #1 PDS suture. The incisional hernias repaired during fascial closure. Skin was closed brenna. Patient top she will was sent to recovery room stable condition.
[2020-09-21] MEDS ORDERED: NALOXONE 0.4 MG/ML 1 ML VIAL IV PRN (12:41)
[2020-09-21] MEDS ORDERED: ACETAMINOPHEN TAB 325 MG TAB PO PRN (12:41)
[2020-09-21] MEDS ORDERED: HYDROmorphone 1 MG/ML 1 ML SYRINGE ONE (12:49)
[2020-09-21] MEDS: HYDROmorphone 1 MG/ML 1 ML SYRINGE IVP ONE ×2 (12:52→12:59)
[2020-09-21] MEDS: HYDROmorphone 0.5 MG/0.5 ML SYRINGE IVP PRN (13:51)
[2020-09-21 17:17] LABS: Glucose,Whole Blood 95 mg/dL (75-99)
[2020-09-21] MEDS: hydrALAZINE HCL 20 MG/ML 1 ML VIAL IVP PRN (17:52)
[2020-09-21 19:49] LABS: Glucose,Whole Blood 97 mg/dL (75-99)
[2020-09-22] MEDS: HYDROmorphone 1 MG/ML 1 ML SYRINGE IVP PRN ×7 (03:08→21:47)
[2020-09-22] MEDS: ONDANSETRON 4 MG/2 ML VIAL IVP PRN ×2 (03:19→14:15)
[2020-09-22] MEDS: SODIUM CHLORIDE 0.9% 1,000 ML IV SCH ×3 (06:15→21:49)
[2020-09-22] MEDS: LACTATED RINGERS 1,000 ML IV SCH (06:24)
[2020-09-22 07:01] LABS: Basophils % (A) 0 %; Eosinophils % (A) 0 %; HCT 41.6 % (39.0-53.0); HGB 13.2 gm/dL (13.0-17.5); Lymphocytes # (A) 1.9 k/uL (1.0-4.8); Lymphocytes % (A) 10 %; MCH 28.7 pg (25.0-35.0); MCHC 31.8 g/dL (31.0-37.0); MCV 90.2 fL (80.0-100.0); Mean Platelet Volume 7.4; Monocytes # (A) 1.3 k/uL (0-1.0); Monocytes % (A) 7 %; Neutrophils # (A) 15.2 k/uL (1.3-7.7); Neutrophils % (A) 81 %; Platelet Count 507 k/uL (150-450); RBC 4.61 m/uL (4.30-5.90); RDW 13.3 % (11.5-15.5); WBC 18.8 k/uL (3.8-10.6)
[2020-09-22] MEDS: NON FORMULARY DRUG (Ciclesonide [Alvesco] 6.1 GM Hfa.Aer.Ad) INHALATION SCH (07:19)
[2020-09-22 07:33] LABS: Glucose,Whole Blood 99 mg/dL (75-99)
[2020-09-22] MEDS: INSULIN ASPART (NovoLOG) 100 UNIT/ML VIAL SQ SCH ×3 (07:39→18:17)
[2020-09-22] MEDS: hydroCHLOROthiazide 12.5 MG CAP PO SCH (07:42)
[2020-09-22] MEDS: METOPROLOL TARTRATE 50 MG TAB PO SCH ×2 (07:42→20:24)
[2020-09-22] MEDS: lisinopriL 10 MG TAB PO SCH ×2 (07:43→20:24)
[2020-09-22] MEDS: MAGNESIUM OXIDE 400 MG TAB PO SCH (07:43)
[2020-09-22] MEDS: ENOXAPARIN 40 MG/0.4 ML SYRINGE SQ SCH (07:43)
[2020-09-22] MEDS: PANTOPRAZOLE 40 MG/10 ML VIAL IVP SCH (07:44)
[2020-09-22 11:57] LABS: Glucose,Whole Blood 116 mg/dL (75-99)
--- NOTE | 2020-09-22 12:21 | P.PN ---
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 Patient is currently residing in [facility]. Patient will not provide details of his incarceration. Patient complains of epigastric pain that started at 5 PM yesterday. He states he tried to walk it off but that did not seem to help. He denies any nausea or vomiting. Patient states he had 3 bowel movements yesterday, 2 in the morning and 1 in the afternoon. He is not passing gas. He denies any blood in the stool. He has history of multiple abdominal surgeries. Patient was brought into [facility] emergency center for evaluation. Patient was found to be afebrile, initial heart rate 121 with repeat 101, blood pressure 119/86, pulse ox 97% on room air. Blood work revealed WBC 18.4, hemoglobin 13.7, platelets 540. INR 1.0. Sodium 134, potassium 4.4, chloride 101, CO2 20, BUN 33 creatinine 2.19. Baseline creatinine 1.5/1.6. Liver function tests were normal. Troponin was normal. Lipase 305. Urinalysis clear with nitrate and leuk on esterase negative. Small amount of blood. Rare bacteria. Chest x-ray normal. CAT scan of the abdomen and pelvis without contrast revealed dilated loops of small bowel in the mid abdomen suggestive partial obstruction. Patient has been admitted and consult in place with Dr. Fernandez. Patient is seen today in the emergency center while waiting for [facility]. 09/14: Patient's diet was advanced yesterday by Dr. Fernandez to clear liquids and patient states as soon as he had eaten he developed significant abdominal pain. Is not passing gas and has not had a bowel movement. Patient has been placed nothing by mouth and Zofran increased to every 6 hours, abdominal x-rays ordered stat which reveals high grade partial or early complete small bowel obstruction. Patient is afebrile, heart rate 95, blood pressure 173/96, pulse ox 90% on room air. Repeat blood work reveals WBC of 21.3, hemoglobin 14.6, platelet count 449. Electrolytes are normal. BUN 25 and creatinine 1.42. Blood sugars are running between 167 and 188. 09/15: Patient had NGT placed yesterday currently to suction. He states he is passing a very small amount of gas, no bowel movements. Abdominal x-ray this morning reveals gradual improving small bowel obstruction with greater degree of air in the left side of the colon and decreasing caliber of dilated small bowel loops. Patient started on IV antibiotics with Zosyn and continued on IV fluids at 125 mL per hour. Patient is afebrile, heart rate 108, blood pressure 127/83, pulse ox 98% on room air. Blood work reveals WBC 14.2, platelet count 476, hemoglobin 13.7. Sodium 141, potassium 4.9, chloride 108, CO2 24, BUN 28 creatinine 1.41. Blood sugars are running between 117 and 169. 09/16: Patient has been afebrile, heart rate 95-113, blood pressure 124/71, pulse ox 95% on room air. WBC 11.8, hemoglobin 11.7, platelet count 412. Blood sugars are running between 102 112. Pro-calcitonin 0.33. Repeat abdominal x-rays this morning reveals overall nonobstructive bowel gas pattern. patient states that he has passing a little bit of gas. NG tube remains in place. Abdomen is soft.plan to continue Zosyn. 09/17 patient examined at bedside. He had a small bowel movement and is passing gas. Abdominal x-ray was negative for obstruction. Vital signs were obtained temp of 98.6 pulse 82 respiratory rate 18 blood pressure 139/76 no recent labs to compare. Surgery recommended removing nasogastric tube today and starting patient on clear liquid diet patient denies any abdominal pain on assessment denies any nausea or vomiting. Denies any dark stools. Denies any chest pain or breathing difficulty. 09/18 patient examined bedside. He is nauseous this morning. Continue full liquid diet per surgery. Patient continues to have bowel movement and flatus. He denies any abdominal pain, chest pain or shortness of breath. Vitals reviewed patient is afebrile pulse 92 respiratory rate 16 blood pressure 155/88. No recent labs. Repeat labs tomorrow 09/19: Patient has been continued on clear liquid diet, IV fluids at 125 mL per hour. Antibiotics were discontinued. Abdominal x-ray reveals increasing number of air fluid levels in the mid left abdominal bowel without any clark small bowel dilatation identified. The transverse colon is patulous measuring up to 6.6 cm though relatively similar mild overall colonic air. Patient has been afebrile, heart rate 91, blood pressure 160/93, pulse ox 90% on room air. Hydrochlorothiazide resumed and lisinopril increased to twice daily dosing. Repeat blood work this morning reveals WBC 9.9, hemoglobin 11.5, platelet count 404. Electrolytes and renal function normal. Blood sugars running between 90 and 119. 8/: Patient remains afebrile, heart rate 80, blood pressure 118/80, pulse ox 96% on room air. Patient has had retching increasing abdominal distention. He states he is having a little small bowel movements but no gas. Repeat abdominal x-rays reveals interval significant worsening now with clark small bowel obstruction, small bowel loops dilated up to 6.3 cm his been made nothing by mouth, NG tube ordered, patient is scheduled for surgery tomorrow with Dr. Fernandez. 09/21: Patient found to have very good bowel sounds this morning he states he had a bowel movement. NG tube was never placed yesterday and he was continued on clear liquids. Repeat abdominal x-ray ordered. Patient is scheduled for surgical intervention today with Dr. Fernandez. He remains afebrile, heart rate 90, blood pressure 145/90, pulse ox 96% on room air. Repeat blood work reveals WBC 16.2, hemoglobin 12.2, platelet count 437. Sodium 134, potassium 3.9, chloride 100, CO2 21, BUN 10 and creatinine 0.96. Blood sugars are running between 74 and 100. 09/22: Yesterday, patient underwent partial omentectomy and lysis of adhesions, repair of incisional hernia. Patient states his abdomen feels sore. He is not passing gas. 112-144. Blood pressure 131/75, pulse ox 96% on room air. WBC 18.8, hemoglobin 13.2, platelet count 507. Blood sugars are running in the 90s to 116. REVIEW OF SYSTEMS Constitutional: No fever, no chills, no night sweats. No weight change. No weakness, fatigue or lethargy. No daytime sleepiness. EENT: No headache. No blurred vision or double vision, no loss of vision. No loss of Hearing, no ringing in the ears, no dizziness. No nasal drainage or congestion. No epistaxis. No sore throat. Lungs: No shortness of breath, cough, no sputum production. No wheezing. Cardiovascular: No chest pain, no lower extremity edema. No palpitations. No paroxysmal nocturnal dyspnea. No orthopnea. No lightheadedness or dizziness. No syncopal episodes. Abdominal: Reports abdominal pain/discomfort, denies nausea, denies vomiting. No diarrhea. No constipation No bloody or tarry stools. No flatulence. Reports loss of appetite. Genitourinary: No dysuria, increased frequency, urgency. No urinary retention. Musculoskeletal: No myalgias. No muscle weakness, no gait dysfunction, no frequent falls. No back pain. No neck pain. Integumentary: No wounds, no lesions. No rash or pruritus. No unusual b ruising. No change in hair or nails. Neurologic: No aphasia. No facial droop. No change in mentation. No head injury. No headache. No paralysis. No paresthesia. Psychiatric: No depression. No anxiety. No mood swings. Endocrine: No abnormal blood sugars. PHYSICAL EXAMINATION Gen: This is an obese 49-year-old male. Patient is resting in bed and appears to be in no acute distress. HEENT: Head is atraumatic, normocephalic. Pupils equal, round. Sclerae is anicteric. NECK: Supple. No JVD. No lymphadenopathy. No thyromegaly. LUNGS: Clear to auscultation. No wheezes or rhonchi. No intercostal retractions. HEART: Regular rate and rhythm. No murmur. ABDOMEN: Bowel sounds present. No masses. Generalized abdominal tenderness. EXTREMITIES: No pedal edema. No calf tenderness. NEUROLOGICAL: Patient is awake, alert and oriented x3. Cranial nerves 2 through 12 are grossly intact. ASSESSMENT AND PLAN 1. Partial small bowel obstruction s/p partial omentectomy, lysis of adhesions and repair of incisional hernia 09/21. Consult with general surgery appreciated. Nothing by mouth, continue current pain management, Zofran as needed for nausea. 2. Acute kidney injury, resolved. Patient is on IV fluids at d to 125 mL/h. 3. History of renal cell cancer, stable. 4. Hypertension. Resume hydrochlorothiazide and increase frequency of lisinopril to 10 mg twice daily, continue Lopressor 100 mg twice daily. Hydralazine IV will be added for blood pressure control. 5. Hyperlipidemia. Hold fenofibrate 160 mg at bedtime. 6. Diabetes mellitus type 2. Hold glipizide 10 mg daily, metformin 1000 mg twice daily, continue NovoLog scale. 7. Gastroesophageal reflux disease. Continue Protonix 40 mg IV push daily. 8. Chronic back pain. 9. History of SVT. Continue Lopressor. 10. DVT prophylaxis. Lovenox subcu. DISCHARGE PLAN Return To Correction Impression and plan of care have been directed as dictated by the signing physician. Luly Coffey nurse practitioner acting as scribe for signing physician. Objective - Vital Signs Vital signs: Vital Signs Temp 98 F 09/22/20 05:00 Pulse 131 H 09/22/20 07:30 Resp 16 09/22/20 05:00 BP 131/75 09/22/20 05:00 Pulse Ox 96 09/22/20 05:00 Intake & Output 09/21/20 09/22/20 09/22/20 18:59 06:59 18:59 Intake Total 3300 1500 Output Total 450 500 300 Balance 2850 1000 -300 Weight 127.006 kg Intake: IV 850 Intake, IV Titration 2450 1500 Amount Lactated Ringers 1,000 ml 1000 1000 @ 125 mls/hr IV .Q8H [facility] Rx#:[id number] Sodium Chloride 0.9% 1, 550 500 000 ml @ 125 mls/hr IV . Q8H [facility] Rx#:[id number] Sodium Chloride 0.9% 150 800 ml @ 0 mls/hr IV .STK-MED ONE with ceFAZolin 3,000 mg Rx#:[id number] ceFAZolin 3 gm In Sodium 100 Chloride 0.9% 100 ml @ 200 mls/hr IVPB ONCE ONE Rx#:[id number] Oral 0 Output: Urine 425 500 300 Uretheral (March) 300 Estimated Blood Loss 25 Other: Voiding Method Toilet Indwelling Catheter # Voids 4 # Bowel Movements 1 - Labs CBC & Chem 7: 09/22/20 06:33 09/21/20 05:49 Labs: Abnormal Lab Results - Last 24 Hours (Table) 09/22/20 Range/Units 06:33 WBC 18.8 H (3.8-10.6) k/uL Plt Count 507 H (150-450) k/uL Neutrophils # 15.2 H (1.3-7.7) k/uL Monocytes # 1.3 H (0-1.0) k/uL
[2020-09-22 13:38] LABS: Magnesium 1.4 mg/dL (1.6-2.3); Phosphorus 3.8 mg/dL (2.5-4.5)
--- NOTE | 2020-09-22 13:47 | P.PN ---
Subjective Progress Note Date: 09/22/20 CHIEF COMPLAINT: Abdominal pain HISTORY OF PRESENT ILLNESS: Patient is status post partial omentectomy, lysis of extensive adhesions and repair of incisional hernia. Patient lying in bed comfortably. He reports that his pain is controlled. He is asking for ice chips. He denies any nausea or vomiting. No bowel activity yet. Afebrile. Tachycardic. Medicine service has placed patient on telemetry monitoring. WBC is up to 18.8 hemoglobin 13.2 platelets 507 PHYSICAL EXAM: VITAL SIGNS: Reviewed. GENERAL: Well-developed in no acute distress. HEENT: No sclera icterus. Extraocular movements grossly intact. Moist buccal mucosa. Head is atraumatic, normocephalic. ABDOMEN: Soft. Nondistended NEUROLOGIC: Alert and oriented. Cranial nerves II through XII grossly intact. ASSESSMENT: 1. Small bowel obstruction status post partial omentectomy, lysis of extensive adhesions and repair of incisional hernia. Postop day #1 PLAN: -Keep patient nothing by mouth -Order PICC line and initiate TPN for nutrition support -Start Kefzol for patient's leukocytosis -Encouraged patient to use incentive spirometer -Encouraged patient to increase activity level -GI prophylaxis Protonix and DVT prophylaxis Lovenox Physician Physical Security Engineer note has been reviewed by physician. Signing provider agrees with the documented findings, assessment, and plan of care. Objective - Vital Signs Vital signs: Vital Signs Temp 98.4 F 09/22/20 11:56 Pulse 106 H 09/22/20 11:56 Resp 18 09/22/20 11:56 BP 153/97 09/22/20 11:56 Pulse Ox 97 09/22/20 11:56 Intake & Output 09/21/20 09/22/20 09/22/20 18:59 06:59 18:59 Intake Total 3300 1500 Output Total 450 500 300 Balance 2850 1000 -300 Weight 127.006 kg Intake: IV 850 Intake, IV Titration 2450 1500 Amount Lactated Ringers 1,000 ml 1000 1000 @ 125 mls/hr IV .Q8H [facility] Rx#:[id number] Sodium Chloride 0.9% 1, 550 500 000 ml @ 125 mls/hr IV . Q8H [facility] Rx#:[id number] Sodium Chloride 0.9% 150 800 ml @ 0 mls/hr IV .STK-MED ONE with ceFAZolin 3,000 mg Rx#:[id number] ceFAZolin 3 gm In Sodium 100 Chloride 0.9% 100 ml @ 200 mls/hr IVPB ONCE [facility] Rx#:[id number] Oral 0 Output: Urine 425 500 300 Uretheral ([place]) 300 Estimated Blood Loss 25 Other: Voiding Method Toilet Indwelling Catheter Indwelling Catheter # Voids 4 # Bowel Movements 1 - Labs CBC & Chem 7: 09/22/20 06:33 09/21/20 05:49 Labs: Abnormal Lab Results - Last 24 Hours (Table) 09/22/20 09/22/20 09/22/20 Range/Units 06:33 06:33 11:54 WBC 18.8 H (3.8-10.6) k/uL Plt Count 507 H (150-450) k/uL Neutrophils # 15.2 H (1.3-7.7) k/uL Monocytes # 1.3 H (0-1.0) k/uL POC Glucose (mg/dL) 116 H (75-99) mg/dL Magnesium 1.4 L (1.6-2.3) mg/dL
[2020-09-22 14:18] LABS: African American GFR (CKD) 101.3 (60.0-200.0); Albumin 3.3 g/dL (3.80-4.90); Albumin/Globulin Ratio 1.74 (1.60-3.17); Anion Gap 19.6 mmol/L (4.00-12.00); Calcium 8.5 mg/dL (8.7-10.3); Carbon Dioxide 17.4 mmol/L (21.6-31.8); Globulin 1.9 g/dL (1.6-3.3); Non-African American GFR(CKD) 87.4 (60.0-200.0); Total Bilirubin 0.3 mg/dL (0.2-1.2); Total Protein 5.2 g/dL (6.2-8.2)
[2020-09-22] MEDS ORDERED: LIDOCAINE 1% INJ 10MG/ML (20 ML MDV) ONE (14:36)
[2020-09-22] MEDS ORDERED: LIDOCAINE 1% INJ 10MG/ML (20 ML MDV) SQ ONE (14:55)
[2020-09-22] MEDS: MVI, ADULT NO.4 WITH VIT K 10 ML, TRACE (CONC-1ML/DOSE) 1 ML in AMINO ACID 5%-D15W+LYTE... IV SCH ×3 (17:27)
[2020-09-22 17:30] LABS: Glucose,Whole Blood 114 mg/dL (75-99)
[2020-09-22] MEDS: MELATONIN 5 MG TABLET PO PRN (20:24)
[2020-09-23] MEDS: HYDROmorphone 1 MG/ML 1 ML SYRINGE IVP PRN ×8 (00:58→22:06)
[2020-09-23 01:01] LABS: Glucose,Whole Blood 122 mg/dL (75-99)
[2020-09-23] MEDS: INSULIN ASPART (NovoLOG) 100 UNIT/ML VIAL SQ SCH ×4 (01:44→18:15)
[2020-09-23] MEDS: NON FORMULARY DRUG (Ciclesonide [Alvesco] 6.1 GM Hfa.Aer.Ad) INHALATION SCH ×3 (01:44→20:43)
[2020-09-23 05:48] LABS: Glucose,Whole Blood 129 mg/dL (75-99)
[2020-09-23 05:56] LABS: Basophils % (A) 0 %; Eosinophils # (A) 0.1 k/uL (0-0.7); Eosinophils % (A) 0 %; HCT 34.7 % (39.0-53.0); HGB 11.3 gm/dL (13.0-17.5); Lymphocytes # (A) 1.6 k/uL (1.0-4.8); Lymphocytes % (A) 13 %; MCH 29.1 pg (25.0-35.0); MCHC 32.6 g/dL (31.0-37.0); MCV 89.2 fL (80.0-100.0); Mean Platelet Volume 7.1; Monocytes # (A) 0.8 k/uL (0-1.0); Monocytes % (A) 6 %; Neutrophils # (A) 9.8 k/uL (1.3-7.7); Neutrophils % (A) 79 %; Platelet Count 466 k/uL (150-450); RBC 3.89 m/uL (4.30-5.90); RDW 13.8 % (11.5-15.5); WBC 12.4 k/uL (3.8-10.6)
[2020-09-23 06:03] LABS: ALT 29 U/L (4-49); AST 17 U/L (17-59); African American GFR (CKD) >90 (>60 ml/min/1.73 sqM); Albumin 2.5 g/dL (3.5-5.0); Albumin/Globulin Ratio 1.1; Alkaline Phosphatase 52 U/L (38-126); Anion Gap 7 mmol/L; Blood Urea Nitrogen 10 mg/dL (9-20); Calcium 8.6 mg/dL (8.4-10.2); Carbon Dioxide 27 mmol/L (22-30); Chloride 100 mmol/L (98-107); Globulin 2.2 g/dL; Glucose 130 mg/dL (74-99); Magnesium 1.4 mg/dL (1.6-2.3); Non-African American GFR(CKD) >90 (>60 ml/min/1.73 sqM); Phosphorus 3.3 mg/dL (2.5-4.5); Potassium 3.6 mmol/L (3.5-5.1); Sodium 134 mmol/L (137-145); Total Bilirubin 0.1 mg/dL (0.2-1.3); Total Protein 4.7 g/dL (6.3-8.2)
[2020-09-23] MEDS: LACTATED RINGERS 1,000 ML IV SCH (06:11)
[2020-09-23] MEDS: MAGNESIUM OXIDE 400 MG TAB PO SCH (08:11)
[2020-09-23] MEDS: METOPROLOL TARTRATE 50 MG TAB PO SCH ×2 (08:11→20:04)
[2020-09-23] MEDS: hydroCHLOROthiazide 12.5 MG CAP PO SCH (08:11)
[2020-09-23] MEDS: lisinopriL 10 MG TAB PO SCH ×2 (08:11→20:04)
[2020-09-23] MEDS: PANTOPRAZOLE 40 MG/10 ML VIAL IVP SCH (08:12)
[2020-09-23] MEDS: ENOXAPARIN 40 MG/0.4 ML SYRINGE SQ SCH (08:15)
[2020-09-23] MEDS: POTASSIUM CHLORIDE 10 MEQ in WATER FOR INJECTION 1 100ML.BAG IVPB SCH ×2 (08:22→10:18)
[2020-09-23] MEDS: ALBUTEROL HFA INHALER INHALATION PRN (09:11)
--- NOTE | 2020-09-23 09:13 | IR ---
PICC LINE PLACEMENT: HISTORY: TPN PROCEDURE: Ultrasound and fluoroscopic guidance of PICC line placement. COMPLICATIONS: None ANESTHESIA: 1. 1% Lidocaine locally. FINDINGS/TECHNIQUE: The procedure was explained to the patient. The risks, complications, benefits and alternatives were discussed and any questions were answered. Informed consent was obtained. The patient was placed supine on the fluoroscopic table and prepped and draped in the usual sterile fash ion. Utilizing a 21 gauge needle and sonographic and fluoroscopic guidance, access in the left basi lic vein vein was achieved and there is placement of a 0.018 guidewire. The vein is patent. A 4-F s arcelia was placed over the guidewire. The guidewire and dilator were removed and a 4-F. PICC line was placed through the sheath with the tip at the level of the SVC. The sheath was removed, the cathete r was flushed and sutured into position. The patient was stable throughout the procedure and remaine d stable upon discharge from the Department of Radiology. The vein puncture was patent under ultrasound. A obregon scale image was obtained to document patency of the vein punctured. All elements of the maximal barrier technique were utilized. FLUOROSCOPY TIME: 0.1 minute and one images IMPRESSION: Successful PICC line placement under ultrasound and fluoroscopic guidance.
[2020-09-23] MEDS: MAGNESIUM SULFATE-D5W PMX 1 GM in DEXTROSE/WATER 1 100ML.BAG IVPB SCH ×3 (11:37→14:37)
[2020-09-23] MEDS: FAT EMULSION 20% 250 ML IV SCH (11:37)
[2020-09-23 11:53] LABS: Glucose,Whole Blood 117 mg/dL (75-99)
[2020-09-23] MEDS: SODIUM CHLORIDE 0.9% 1,000 ML IV SCH ×2 (12:31→20:05)
--- NOTE | 2020-09-23 15:14 | P.PN ---
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 Patient is currently residing in [facility]. Patient will not provide details of his incarceration. Patient complains of epigastric pain that started at 5 PM yesterday. He states he tried to walk it off but that did not seem to help. He denies any nausea or vomiting. Patient states he had 3 bowel movements yesterday, 2 in the morning and 1 in the afternoon. He is not passing gas. He denies any blood in the stool. He has history of multiple abdominal surgeries. Patient was brought into [facility] emergency center for evaluation. Patient was found to be afebrile, initial heart rate 121 with repeat 101, blood pressure 119/86, pulse ox 97% on room air. Blood work revealed WBC 18.4, hemoglobin 13.7, platelets 540. INR 1.0. Sodium 134, potassium 4.4, chloride 101, CO2 20, BUN 33 creatinine 2.19. Baseline creatinine 1.5/1.6. Liver function tests were normal. Troponin was normal. Lipase 305. Urinalysis clear with nitrate and leuk on esterase negative. Small amount of blood. Rare bacteria. Chest x-ray normal. CAT scan of the abdomen and pelvis without contrast revealed dilated loops of small bowel in the mid abdomen suggestive partial obstruction. Patient has been admitted and consult in place with Dr. Fernandez. Patient is seen today in the emergency center while waiting for [facility]. 09/14: Patient's diet was advanced yesterday by Dr. Fernandez to clear liquids and patient states as soon as he had eaten he developed significant abdominal pain. Is not passing gas and has not had a bowel movement. Patient has been placed nothing by mouth and Zofran increased to every 6 hours, abdominal x-rays ordered stat which reveals high grade partial or early complete small bowel obstruction. Patient is afebrile, heart rate 95, blood pressure 173/96, pulse ox 90% on room air. Repeat blood work reveals WBC of 21.3, hemoglobin 14.6, platelet count 449. Electrolytes are normal. BUN 25 and creatinine 1.42. Blood sugars are running between 167 and 188. 09/15: Patient had NGT placed yesterday currently to suction. He states he is passing a very small amount of gas, no bowel movements. Abdominal x-ray this morning reveals gradual improving small bowel obstruction with greater degree of air in the left side of the colon and decreasing caliber of dilated small bowel loops. Patient started on IV antibiotics with Zosyn and continued on IV fluids at 125 mL per hour. Patient is afebrile, heart rate 108, blood pressure 127/83, pulse ox 98% on room air. Blood work reveals WBC 14.2, platelet count 476, hemoglobin 13.7. Sodium 141, potassium 4.9, chloride 108, CO2 24, BUN 28 creatinine 1.41. Blood sugars are running between 117 and 169. 09/16: Patient has been afebrile, heart rate 95-113, blood pressure 124/71, pulse ox 95% on room air. WBC 11.8, hemoglobin 11.7, platelet count 412. Blood sugars are running between 102 112. Pro-calcitonin 0.33. Repeat abdominal x-rays this morning reveals overall nonobstructive bowel gas pattern. patient states that he has passing a little bit of gas. NG tube remains in place. Abdomen is soft.plan to continue Zosyn. 09/17 patient examined at bedside. He had a small bowel movement and is passing gas. Abdominal x-ray was negative for obstruction. Vital signs were obtained temp of 98.6 pulse 82 respiratory rate 18 blood pressure 139/76 no recent labs to compare. Surgery recommended removing nasogastric tube today and starting patient on clear liquid diet patient denies any abdominal pain on assessment denies any nausea or vomiting. Denies any dark stools. Denies any chest pain or breathing difficulty. 09/18 patient examined bedside. He is nauseous this morning. Continue full liquid diet per surgery. Patient continues to have bowel movement and flatus. He denies any abdominal pain, chest pain or shortness of breath. Vitals reviewed patient is afebrile pulse 92 respiratory rate 16 blood pressure 155/88. No recent labs. Repeat labs tomorrow 09/19: Patient has been continued on clear liquid diet, IV fluids at 125 mL per hour. Antibiotics were discontinued. Abdominal x-ray reveals increasing number of air fluid levels in the mid left abdominal bowel without any clark small bowel dilatation identified. The transverse colon is patulous measuring up to 6.6 cm though relatively similar mild overall colonic air. Patient has been afebrile, heart rate 91, blood pressure 160/93, pulse ox 90% on room air. Hydrochlorothiazide resumed and lisinopril increased to twice daily dosing. Repeat blood work this morning reveals WBC 9.9, hemoglobin 11.5, platelet count 404. Electrolytes and renal function normal. Blood sugars running between 90 and 119. 8/3: Patient remains afebrile, heart rate 80, blood pressure 118/80, pulse ox 96% on room air. Patient has had retching increasing abdominal distention. He states he is having a little small bowel movements but no gas. Repeat abdominal x-rays reveals interval significant worsening now with clark small bowel obstruction, small bowel loops dilated up to 6.3 cm his been made nothing by mouth, NG tube ordered, patient is scheduled for surgery tomorrow with Dr. Fernandez. 09/21: Patient found to have very good bowel sounds this morning he states he had a bowel movement. NG tube was never placed yesterday and he was continued on clear liquids. Repeat abdominal x-ray ordered. Patient is scheduled for surgical intervention today with Dr. Fernandez. He remains afebrile, heart rate 90, blood pressure 145/90, pulse ox 96% on room air. Repeat blood work reveals WBC 16.2, hemoglobin 12.2, platelet count 437. Sodium 134, potassium 3.9, chloride 100, CO2 21, BUN 10 and creatinine 0.96. Blood sugars are running between 74 and 100. 8/5: Yesterday, patient underwent partial omentectomy and lysis of adhesions, repair of incisional hernia. Patient states his abdomen feels sore. He is not passing gas. 112-144. Blood pressure 131/75, pulse ox 96% on room air. WBC 18.8, hemoglobin 13.2, platelet count 507. Blood sugars are running in the 90s to 116. 8/6: Patient had PICC line placed for TPN and magnesium potassium replaced today. He is using incentive spirometry. Patient has been able to walk in the hallway. He states he is passing very little gas. He remains nothing by mouth. He denies any fever or chills. He does have bowel sounds today. Patient has been afebrile, heart rate in the low 100s, blood pressure 138/86, pulse ox 93% on room air. WBC 12.4, hemoglobin 11.3, platelet count 466. Sodium 134, otherwise electrolytes are normal, creatinine 0.87. Blood sugars running between 114 and 129. REVIEW OF SYSTEMS Constitutional: No fever, no chills, no night sweats. No weight change. No weakness, fatigue or lethargy. No daytime sleepiness. EENT: No headache. No blurred vision or double vision, no loss of vision. No loss of Hearing, no ringing in the ears, no dizziness. No nasal drainage or congestion. No epistaxis. No sore throat. Lungs: No shortness of breath, cough, no sputum production. No wheezing. Cardiovascular: No chest pain, no lower extremity edema. No palpitations. No paroxysmal nocturnal dyspnea. No orthopnea. No lightheadedness or dizziness. No syncopal episodes. Abdominal: Reports abdominal pain/discomfort, denies nausea, denies vomiting. No diarrhea. No constipation No bloody or tarry stools. No flatulence. Reports loss of appetite. Genitourinary: No dysuria, increased frequency, urgency. No urinary retention. Musculoskeletal: No myalgias. No muscle weakness, no gait dysfunction, no frequent falls. No back pain. No neck pain. Integumentary: No wounds, no lesions. No rash or pruritus. No unusual bruising. No change in hair or nails. Neurologic: No aphasia. No facial droop. No change in mentation. No head injury. No headache. No paralysis. No paresthesia. Psychiatric: No depression. No anxiety. No mood swings. Endocrine: No abnormal blood sugars. PHYSICAL EXAMINATION Gen: This is an obese 49-year-old male. Patient is resting in bed and appears to be in no acute distress. HEENT: Head is atraumatic, normocephalic. Pupils equal, round. Sclerae is anicteric. NECK: Supple. No JVD. No lymphadenopathy. No thyromegaly. LUNGS: Clear to auscultation. No wheezes or rhonchi. No intercostal retractions. HEART: Regular rate and rhythm. No murmur. ABDOMEN: Bowel sounds present. No masses. Generalized abdominal tenderness. EXTREMITIES: No pedal edema. No calf tenderness. NEUROLOGICAL: Patient is awake, alert and oriented x3. Cranial nerves 2 through 12 are grossly intact. ASSESSMENT AND PLAN 1. Partial small bowel obstruction s/p partial omentectomy, lysis of adhesions and repair of incisional hernia 09/21. Consult with general surgery appreciated. Nothing by mouth, continue current pain management, Zofran as needed for nausea. 2. Acute kidney injury, resolved. Patient is on IV fluids at d to 125 mL/h. 3. History of renal cell cancer, stable. 4. Hypertension. Resume hydrochlorothiazide and increase frequency of lisinopril to 10 mg twice daily, continue Lopressor 100 mg twice daily. Hydralazine IV will be added for blood pressure control. 5. Hyperlipidemia. Hold fenofibrate 160 mg at bedtime. 6. Diabetes mellitus type 2. Hold glipizide 10 mg daily, metformin 1000 mg twice daily, continue NovoLog scale. 7. Gastroesophageal reflux disease. Continue Protonix 40 mg IV push daily. 8. Chronic back pain. 9. History of SVT. Continue Lopressor. 10. Severe protein calorie malnutrition due to extended period of nothing by mouth status. Patient had PICC line placed and started on TPN. 11. DVT prophylaxis. Lovenox subcu. DISCHARGE PLAN Return To Skilled Nursing Impression and plan of care have been directed as dictated by the signing physician. Luly Coffey nurse practitioner acting as scribe for signing physician. Objective - Vital Signs Vital signs: Vital Signs Temp 98.2 F 09/23/20 04:30 Pulse 103 H 09/23/20 04:30 Resp 20 09/23/20 04:30 BP 151/89 09/23/20 04:30 Pulse Ox 98 09/23/20 04:30 Intake & Output 09/22/20 09/23/20 09/23/20 18:59 06:59 18:59 Intake Total 1960 Output Total 300 Balance -300 1959 Weight 127.006 kg Intake: Intake, IV Titration 1960 Amount Mvi, Adult No.4 with Vit 360 K 10 ml Trace (Conc-1Ml/ Dose) 1 ml In Amino Acid 5%-D15w+Lytes*E* 1,000 ml @ 30 mls/hr IV .Q24H [facility] Rx#:[id number] Sodium Chloride 0.9% 1, 1500 000 ml @ 125 mls/hr IV . Q8H [facility] Rx#:[id number] ceFAZolin 1,000 mg In 100 Sodium Chloride 0.9% 50 ml @ 100 mls/hr IVPB Q8H [facility] Rx#:[id number] Output: Urine 300 Uretheral (March) 300 Other: Voiding Method Indwelling Catheter Toilet Toilet Urinal Urinal # Voids 3 3 1 # Bowel Movements 1 - Labs CBC & Chem 7: 09/23/20 05:30 09/23/20 05:30 Labs: Abnormal Lab Results - Last 24 Hours (Table) 09/22/20 09/22/20 09/22/20 Range/Units 06:33 06:33 11:54 WBC (3.8-10.6) k/uL RBC (4.30-5.90) m/uL Hgb (13.0-17.5) gm/dL Hct (39.0-53.0) % Plt Count (150-450) k/uL Neutrophils # (1.3-7.7) k/uL Sodium (137-145) mmol/L Carbon Dioxide 17.4 L (21.6-31.8) mmol/L Anion Gap 19.60 H (4.00-12.00) mmol/L BUN/Creatinine Ratio 11.00 L (12.00-20.00) Ratio Glucose (74-99) mg/dL POC Glucose (mg/dL) 116 H (75-99) mg/dL Calcium 8.5 L (8.7-10.3) mg/dL Magnesium 1.4 L (1.6-2.3) mg/dL Total Bilirubin (0.2-1.3) mg/dL ALT 52 H (10-49) U/L Total Protein 5.2 L (6.2-8.2) g/dL Albumin 3.30 L (3.80-4.90) g/dL Triglycerides 159.0 H (0.0-149.0) mg/dL 09/22/20 09/23/20 09/23/20 Range/Units 17:26 00:47 05:30 WBC 12.4 H (3.8-10.6) k/uL RBC 3.89 L (4.30-5.90) m/uL Hgb 11.3 L (13.0-17.5) gm/dL Hct 34.7 L (39.0-53.0) % Plt Count 466 H (150-450) k/uL Neutrophils # 9.8 H (1.3-7.7) k/uL Sodium (137-145) mmol/L Carbon Dioxide (21.6-31.8) mmol/L Anion Gap (4.00-12.00) mmol/L BUN/Creatinine Ratio (12.00-20.00) Ratio Glucose (74-99) mg/dL POC Glucose (mg/dL) 114 H 122 H (75-99) mg/dL Calcium (8.7-10.3) mg/dL Magnesium (1.6-2.3) mg/dL Total Bilirubin (0.2-1.3) mg/dL ALT (10-49) U/L Total Protein (6.2-8.2) g/dL Albumin (3.80-4.90) g/dL Triglycerides (0.0-149.0) mg/dL 09/23/20 09/23/20 Range/Units 05:30 05:45 WBC (3.8-10.6) k/uL RBC (4.30-5.90) m/uL Hgb (13.0-17.5) gm/dL Hct (39.0-53.0) % Plt Count (150-450) k/uL Neutrophils # (1.3-7.7) k/uL Sodium 134 L (137-145) mmol/L Carbon Dioxide (21.6-31.8) mmol/L Anion Gap (4.00-12.00) mmol/L BUN/Creatinine Ratio (12.00-20.00) Ratio Glucose 130 H (74-99) mg/dL POC Glucose (mg/dL) 129 H (75-99) mg/dL Calcium (8.7-10.3) mg/dL Magnesium 1.4 L (1.6-2.3) mg/dL Total Bilirubin 0.1 L (0.2-1.3) mg/dL ALT (10-49) U/L Total Protein 4.7 L (6.2-8.2) g/dL Albumin 2.5 L (3.80-4.90) g/dL Triglycerides (0.0-149.0) mg/dL
--- NOTE | 2020-09-23 15:20 | P.PN ---
Subjective Progress Note Date: 09/23/20 CHIEF COMPLAINT: Abdominal pain HISTORY OF PRESENT ILLNESS: Patient is status post partial omentectomy, lysis of extensive adhesions and repair of incisional hernia. Patient lying in bed comfortably. He reports that his pain is controlled. He is passing a small amount of gas. Did report some nausea this morning. No vomiting. He has been started on TPN. Afebrile. Heart rate 103. White count is down from 18.8-12.4. Hemoglobin 11.3 potassium 3.6 magnesium 1.4 PHYSICAL EXAM: VITAL SIGNS: Reviewed. GENERAL: Well-developed in no acute distress. HEENT: No sclera icterus. Extraocular movements grossly intact. Moist buccal mucosa. Head is atraumatic, normocephalic. ABDOMEN: Soft. Nondistended NEUROLOGIC: Alert and oriented. Cranial nerves II through XII grossly intact. ASSESSMENT: 1. Small bowel obstruction status post partial omentectomy, lysis of extensive adhesions and repair of incisional hernia. Postop day #2 PLAN: -Keep patient nothing by mouth -Start clear liquid diet in the morning -Continue TPN for nutrition support -Magnesium and potassium being replaced per pharmacy -Continue antibiotic -Encouraged patient to use incentive spirometer -Encouraged patient to increase activity level -GI prophylaxis Protonix and DVT prophylaxis Lovenox Physician Board Certified Arts Therapist note has been reviewed by physician. Signing provider agrees with the documented findings, assessment, and plan of care. Objective - Vital Signs Vital signs: Vital Signs Temp 99.0 F 09/23/20 11:45 Pulse 107 H 09/23/20 11:45 Resp 19 09/23/20 11:45 BP 126/85 09/23/20 11:45 Pulse Ox 93 L 09/23/20 11:45 Intake & Output 09/22/20 09/23/20 09/23/20 18:59 06:59 18:59 Intake Total 1960 Output Total 300 Balance -300 1959 Weight 127.006 kg 127.006 kg Intake: Intake, IV Titration 1959 Amount Mvi, Adult No.4 with Vit 360 K 10 ml Trace (Conc-1Ml/ Dose) 1 ml In Amino Acid 5%-D15w+Lytes*E* 1,000 ml @ 30 mls/hr IV .Q24H [facility] Rx#:[id number] Sodium Chloride 0.9% 1, 1500 000 ml @ 125 mls/hr IV . Q8H [facility] Rx#:[id number] ceFAZolin 1,000 mg In 100 Sodium Chloride 0.9% 50 ml @ 100 mls/hr IVPB Q8H [facility] Rx#:[id number] Output: Urine 300 Uretheral (March) 300 Other: Voiding Method Indwelling Catheter Toilet Toilet Urinal Urinal # Voids 3 3 1 # Bowel Movements 1 - Labs CBC & Chem 7: 09/23/20 05:30 09/23/20 05:30 Labs: Abnormal Lab Results - Last 24 Hours (Table) 09/22/20 09/22/20 09/23/20 Range/Units 06:33 17:26 00:47 WBC (3.8-10.6) k/uL RBC (4.30-5.90) m/uL Hgb (13.0-17.5) gm/dL Hct (39.0-53.0) % Plt Count (150-450) k/uL Neutrophils # (1.3-7.7) k/uL Sodium (137-145) mmol/L Glucose (74-99) mg/dL POC Glucose (mg/dL) 114 H 122 H (75-99) mg/dL Magnesium (1.6-2.3) mg/dL Total Bilirubin (0.2-1.3) mg/dL Total Protein (6.3-8.2) g/dL Albumin (3.5-5.0) g/dL Triglycerides 159.0 H (0.0-149.0) mg/dL 09/23/20 09/23/20 09/23/20 Range/Units 05:30 05:30 05:45 WBC 12.4 H (3.8-10.6) k/uL RBC 3.89 L (4.30-5.90) m/uL Hgb 11.3 L (13.0-17.5) gm/dL Hct 34.7 L (39.0-53.0) % Plt Count 466 H (150-450) k/uL Neutrophils # 9.8 H (1.3-7.7) k/uL Sodium 134 L (137-145) mmol/L Glucose 130 H (74-99) mg/dL POC Glucose (mg/dL) 129 H (75-99) mg/dL Magnesium 1.4 L (1.6-2.3) mg/dL Total Bilirubin 0.1 L (0.2-1.3) mg/dL Total Protein 4.7 L (6.3-8.2) g/dL Albumin 2.5 L (3.5-5.0) g/dL Triglycerides (0.0-149.0) mg/dL 09/23/20 Range/Units 11:49 WBC (3.8-10.6) k/uL RBC (4.30-5.90) m/uL Hgb (13.0-17.5) gm/dL Hct (39.0-53.0) % Plt Count (150-450) k/uL Neutrophils # (1.3-7.7) k/uL Sodium (137-145) mmol/L Glucose (74-99) mg/dL POC Glucose (mg/dL) 117 H (75-99) mg/dL Magnesium (1.6-2.3) mg/dL Total Bilirubin (0.2-1.3) mg/dL Total Protein (6.3-8.2) g/dL Albumin (3.5-5.0) g/dL Triglycerides (0.0-149.0) mg/dL
[2020-09-23] MEDS: MVI, ADULT NO.4 WITH VIT K 10 ML, TRACE (CONC-1ML/DOSE) 1 ML in AMINO ACID 5%-D15W+LYTE... IV SCH ×3 (15:50)
[2020-09-23 17:56] LABS: Glucose,Whole Blood 107 mg/dL (75-99)
[2020-09-23] MEDS: MELATONIN 5 MG TABLET PO PRN (22:06)
[2020-09-24 00:14] LABS: Glucose,Whole Blood 121 mg/dL (75-99)
[2020-09-24] MEDS: INSULIN ASPART (NovoLOG) 100 UNIT/ML VIAL SQ SCH ×5 (00:45→23:54)
[2020-09-24] MEDS: HYDROmorphone 1 MG/ML 1 ML SYRINGE IVP PRN ×7 (01:06→21:14)
[2020-09-24] MEDS: LACTATED RINGERS 1,000 ML IV SCH (05:08)
[2020-09-24 05:53] LABS: Glucose,Whole Blood 124 mg/dL (75-99)
[2020-09-24 07:27] LABS: ALT 20 U/L (4-49); AST 17 U/L (17-59); African American GFR (CKD) >90 (>60 ml/min/1.73 sqM); Albumin 2.5 g/dL (3.5-5.0); Alkaline Phosphatase 52 U/L (38-126); Anion Gap 7 mmol/L; Blood Urea Nitrogen 8 mg/dL (9-20); Calcium 8.6 mg/dL (8.4-10.2); Carbon Dioxide 27 mmol/L (22-30); Chloride 97 mmol/L (98-107); Globulin 2.4 g/dL; Glucose 119 mg/dL (74-99); Magnesium 1.5 mg/dL (1.6-2.3); Non-African American GFR(CKD) >90 (>60 ml/min/1.73 sqM); Phosphorus 4.1 mg/dL (2.5-4.5); Potassium 3.3 mmol/L (3.5-5.1); Sodium 131 mmol/L (137-145); Total Bilirubin 0.1 mg/dL (0.2-1.3); Total Protein 4.9 g/dL (6.3-8.2)
[2020-09-24] MEDS: PANTOPRAZOLE 40 MG/10 ML VIAL IVP SCH (09:18)
[2020-09-24] MEDS: ENOXAPARIN 40 MG/0.4 ML SYRINGE SQ SCH (09:18)
[2020-09-24] MEDS: MAGNESIUM OXIDE 400 MG TAB PO SCH (09:18)
[2020-09-24] MEDS: METOPROLOL TARTRATE 50 MG TAB PO SCH ×2 (09:18→21:13)
[2020-09-24] MEDS: hydroCHLOROthiazide 12.5 MG CAP PO SCH (09:18)
[2020-09-24] MEDS: lisinopriL 10 MG TAB PO SCH ×2 (09:18→21:13)
[2020-09-24] MEDS: FAT EMULSION 20% 250 ML IV SCH (09:18)
[2020-09-24] MEDS: MAGNESIUM SULFATE-D5W PMX 1 GM in DEXTROSE/WATER 1 100ML.BAG IVPB SCH ×2 (09:44→11:36)
[2020-09-24 11:31] LABS: Glucose,Whole Blood 128 mg/dL (75-99)
--- NOTE | 2020-09-24 11:54 | P.PN ---
Subjective Progress Note Date: 09/24/20 HISTORY OF PRESENT ILLNESS This is a 49-year-old male patient of [facility], patient follows with Rosalia Gallagher [employer], with past medical history of hypertension, hyperlipidemia, diabetes mellitus type 2, gastroesophageal reflux disease, chronic back pain, SVT, renal cell cancer, peptic ulcer disease, generalized anxiety disorder. Patient is currently residing in [facility]. Patient will not provide details of his incarceration. Patient complains of epigastric pain that started at 5 PM yesterday. He states he tried to walk it off but that did not seem to help. He denies any nausea or vomiting. Patient states he had 3 bowel movements yesterday, 2 in the morning and 1 in the afternoon. He is not passing gas. He denies any blood in the stool. He has history of multiple abdominal surgeries. Patient was brought into [facility] emergency center for evaluation. Patient was found to be afebrile, initial heart rate 121 with repeat 101, blood pressure 119/86, pulse ox 97% on room air. Blood work revealed WBC 18.4, hemoglobin 13.7, platelets 540. INR 1.0. Sodium 134, potassium 4.4, chloride 101, CO2 20, BUN 33 creatinine 2.19. Baseline creatinine 1.5/1.6. Liver function tests were normal. Troponin was normal. Lipase 305. Urinalysis clear with nitrate and leuk on esterase negative. Small amount of blood. Rare bacteria. Chest x-ray normal. CAT scan of the abdomen and pelvis without contrast revealed dilated loops of small bowel in the mid abdomen suggestive partial obstruction. Patient has been admitted and consult in place with Dr. Fernandez. Patient is seen today in the emergency center while waiting for [facility]. 09/14: Patient's diet was advanced yesterday by Dr. Fernandez to clear liquids and patient states as soon as he had eaten he developed significant abdominal pain. Is not passing gas and has not had a bowel movement. Patient has been placed nothing by mouth and Zofran increased to every 6 hours, abdominal x-rays ordered stat which reveals high grade partial or early complete small bowel obstruction. Patient is afebrile, heart rate 95, blood pressure 173/96, pulse ox 90% on room air. Repeat blood work reveals WBC of 21.3, hemoglobin 14.6, platelet count 449. Electrolytes are normal. BUN 25 and creatinine 1.42. Blood sugars are running between 167 and 188. 09/15: Patient had NGT placed yesterday currently to suction. He states he is passing a very small amount of gas, no bowel movements. Abdominal x-ray this morning reveals gradual improving small bowel obstruction with greater degree of air in the left side of the colon and decreasing caliber of dilated small bowel loops. Patient started on IV antibiotics with Zosyn and continued on IV fluids at 125 mL per hour. Patient is afebrile, heart rate 108, blood pressure 127/83, pulse ox 98% on room air. Blood work reveals WBC 14.2, platelet count 476, hemoglobin 13.7. Sodium 141, potassium 4.9, chloride 108, CO2 24, BUN 28 creatinine 1.41. Blood sugars are running between 117 and 169. 09/16: Patient has been afebrile, heart rate 95-113, blood pressure 124/71, pulse ox 95% on room air. WBC 11.8, hemoglobin 11.7, platelet count 412. Blood sugars are running between 102 112. Pro-calcitonin 0.33. Repeat abdominal x-rays this morning reveals overall nonobstructive bowel gas pattern. patient states that he has passing a little bit of gas. NG tube remains in place. Abdomen is soft.plan to continue Zosyn. 09/17 patient examined at bedside. He had a small bowel movement and is passing gas. Abdominal x-ray was negative for obstruction. Vital signs were obtained temp of 98.6 pulse 82 respiratory rate 18 blood pressure 139/76 no recent labs to compare. Surgery recommended removing nasogastric tube today and starting patient on clear liquid diet patient denies any abdominal pain on assessment denies any nausea or vomiting. Denies any dark stools. Denies any chest pain or breathing difficulty. 09/18 patient examined bedside. He is nauseous this morning. Continue full liquid diet per surgery. Patient continues to have bowel movement and flatus. He denies any abdominal pain, chest pain or shortness of breath. Vitals reviewed patient is afebrile pulse 92 respiratory rate 16 blood pressure 155/88. No recent labs. Repeat labs tomorrow 09/19: Patient has been continued on clear liquid diet, IV fluids at 125 mL per hour. Antibiotics were discontinued. Abdominal x-ray reveals increasing number of air fluid levels in the mid left abdominal bowel without any clark small bowel dilatation identified. The transverse colon is patulous measuring up to 6.6 cm though relatively similar mild overall colonic air. Patient has been afebrile, heart rate 91, blood pressure 160/93, pulse ox 90% on room air. Hydrochlorothiazide resumed and lisinopril increased to twice daily dosing. Repeat blood work this morning reveals WBC 9.9, hemoglobin 11.5, platelet count 404. Electrolytes and renal function normal. Blood sugars running between 90 and 119. 8/3: Patient remains afebrile, heart rate 80, blood pressure 118/80, pulse ox 96% on room air. Patient has had retching increasing abdominal distention. He states he is having a little small bowel movements but no gas. Repeat abdominal x-rays reveals interval significant worsening now with clark small bowel obstruction, small bowel loops dilated up to 6.3 cm his been made nothing by mouth, NG tube ordered, patient is scheduled for surgery tomorrow with Dr. Fernandez. 09/21: Patient found to have very good bowel sounds this morning he states he had a bowel movement. NG tube was never placed yesterday and he was continued on clear liquids. Repeat abdominal x-ray ordered. Patient is scheduled for surgical intervention today with Dr. Fernandez. He remains afebrile, heart rate 90, blood pressure 145/90, pulse ox 96% on room air. Repeat blood work reveals WBC 16.2, hemoglobin 12.2, platelet count 437. Sodium 134, potassium 3.9, chloride 100, CO2 21, BUN 10 and creatinine 0.96. Blood sugars are running between 74 and 100. 8/5: Yesterday, patient underwent partial omentectomy and lysis of adhesions, repair of incisional hernia. Patient states his abdomen feels sore. He is not passing gas. 112-144. Blood pressure 131/75, pulse ox 96% on room air. WBC 18.8, hemoglobin 13.2, platelet count 507. Blood sugars are running in the 90s to 116. 8/6: Patient had PICC line placed for TPN and magnesium potassium replaced today. He is using incentive spirometry. Patient has been able to walk in the hallway. He states he is passing very little gas. He remains nothing by mouth. He denies any fever or chills. He does have bowel sounds today. Patient has been afebrile, heart rate in the low 100s, blood pressure 138/86, pulse ox 93% on room air. WBC 12.4, hemoglobin 11.3, platelet count 466. Sodium 134, otherwise electrolytes are normal, creatinine 0.87. Blood sugars running between 114 and 129. 09/24: Patient has been increased to clear liquids. He has been ambulatory in the hallway. He has passed some gas however has not had a bowel movement yet. No NG tube in place. His been utilizing his incentive spirometer. We will continue with TPN until patient has been moved to a regular diet. Bowel sounds are present hypoactive. Patient remained afebrile, heart rate 95, respirations 18, blood pressure 142/88 pulse ox 93% on room air. REVIEW OF SYSTEMS Constitutional: No fever, no chills, no night sweats. No weight change. No weakness, fatigue or lethargy. No daytime sleepiness. EENT: No headache. No blurred vision or double vision, no loss of vision. No loss of Hearing, no ringing in the ears, no dizziness. No nasal drainage or congestion. No epistaxis. No sore throat. Lungs: No shortness of breath, cough, no sputum production. No wheezing. Cardiovascular: No chest pain, no lower extremity edema. No palpitations. No paroxysmal nocturnal dyspnea. No orthopnea. No lightheadedness or dizziness. No syncopal episodes. Abdominal: Reports abdominal pain/discomfort, denies nausea, denies vomiting. No diarrhea. No constipation No bloody or tarry stools. No flatulence. Reports loss of appetite. Genitourinary: No dysuria, increased frequency, urgency. No urinary retention. Musculoskeletal: No myalgias. No muscle weakness, no gait dysfunction, no frequent falls. No back pain. No neck pain. Integumentary: No wounds, no lesions. No rash or pruritus. No unusual bruising. No change in hair or nails. Neurologic: No aphasia. No facial droop. No change in mentation. No head injury. No headache. No paralysis. No paresthesia. Psychiatric: No depression. No anxiety. No mood swings. Endocrine: No abnormal blood sugars. PHYSICAL EXAMINATION Gen: This is an obese 49-year-old male. Patient is resting in bed and appears to be in no acute distress. HEENT: Head is atraumatic, normocephalic. Pupils equal, round. Sclerae is anicteric. NECK: Supple. No JVD. No lymphadenopathy. No thyromegaly. LUNGS: Clear to auscultation. No wheezes or rhonchi. No intercostal retractions. HEART: Regular rate and rhythm. No murmur. ABDOMEN: Bowel sounds present. No masses. Generalized abdominal tenderness. EXTREMITIES: No pedal edema. No calf tenderness. NEUROLOGICAL: Patient is awake, alert and oriented x3. Cranial nerves 2 through 12 are grossly intact. ASSESSMENT AND PLAN 1. Partial small bowel obstruction s/p partial omentectomy, lysis of adhesions and repair of incisional hernia 09/21. Consult with general surgery appreciated. Advanced to clear liquid, continue current pain management, Zofran as needed for nausea. 2. Acute kidney injury, resolved. Patient is on IV fluids at d to 125 mL/h. 3. History of renal cell cancer, stable. 4. Hypertension. Resume hydrochlorothiazide and increase frequency of lisinopril to 10 mg twice daily, continue Lopressor 100 mg twice daily. Hydralazine IV will be added for blood pressure control. 5. Hyperlipidemia. Hold fenofibrate 160 mg at bedtime. 6. Diabetes mellitus type 2. Hold glipizide 10 mg daily, metformin 1000 mg twi ce daily, continue NovoLog scale. 7. Gastroesophageal reflux disease. Continue Protonix 40 mg IV push daily. 8. Chronic back pain. 9. History of SVT. Continue Lopressor. 10. Severe protein calorie malnutrition due to extended period of nothing by mouth status. Patient had PICC line placed and started on TPN. 11. DVT prophylaxis. Lovenox subcu. DISCHARGE PLAN Return To Retirement Impression and plan of care have been directed as dictated by the signing physician. Hevaenly Montano nurse practitioner acting as scribe for signing physician. Objective - Vital Signs Vital signs: Vital Signs Temp 98.1 F 09/24/20 04:32 Pulse 95 09/24/20 04:32 Resp 18 09/24/20 04:32 BP 142/88 09/24/20 04:32 Pulse Ox 93 L 09/24/20 04:32 Intake & Output 09/23/20 09/24/20 09/24/20 18:59 06:59 18:59 Intake Total 671.5 1850 Balance 671.5 1850 Weight 127.006 kg Intake: Intake, IV Titration 671.5 1850 Amount Fat Emulsion 20% 250 ml @ 250 21 mls/hr IV DAILY [facility] Rx#:[id number] Mvi, Adult No.4 with Vit 671.5 K 10 ml Trace (Conc-1Ml/ Dose) 1 ml In Amino Acid 5%-D15w+Lytes*E* 1,000 ml @ 30 mls/hr IV .Q24H [facility] Rx#:[id number] Sodium Chloride 0.9% 1, 1500 000 ml @ 125 mls/hr IV . Q8H [facility] Rx#:[id number] ceFAZolin 1,000 mg In 100 Sodium Chloride 0.9% 50 ml @ 100 mls/hr IVPB Q8H [facility] Rx#:[id number] Other: Voiding Method Toilet Toilet Urinal Urinal # Voids 2 5 # Bowel Movements 1 - Labs CBC & Chem 7: 09/23/20 05:30 09/24/20 06:36 Labs: Abnormal Lab Results - Last 24 Hours (Table) 09/23/20 09/23/20 09/24/20 Range/Units 11:49 17:45 00:13 Sodium (137-145) mmol/L Potassium (3.5-5.1) mmol/L Chloride (98-107) mmol/L BUN (9-20) mg/dL Glucose (74-99) mg/dL POC Glucose (mg/dL) 117 H 107 H 121 H (75-99) mg/dL Magnesium (1.6-2.3) mg/dL Total Bilirubin (0.2-1.3) mg/dL Total Protein (6.3-8.2) g/dL Albumin (3.5-5.0) g/dL 09/24/20 09/24/20 09/24/20 Range/Units 05:52 06:36 11:30 Sodium 131 L (137-145) mmol/L Potassium 3.3 L (3.5-5.1) mmol/L Chloride 97 L (98-107) mmol/L BUN 8 L (9-20) mg/dL Glucose 119 H (74-99) mg/dL POC Glucose (mg/dL) 124 H 128 H (75-99) mg/dL Magnesium 1.5 L (1.6-2.3) mg/dL Total Bilirubin 0.1 L (0.2-1.3) mg/dL Total Protein 4.9 L (6.3-8.2) g/dL Albumin 2.5 L (3.5-5.0) g/dL
[2020-09-24] MEDS: NON FORMULARY DRUG (Ciclesonide [Alvesco] 6.1 GM Hfa.Aer.Ad) INHALATION SCH ×2 (12:16→23:53)
[2020-09-24] MEDS: POTASSIUM CHLORIDE 20 MEQ in WATER FOR INJECTION 1 100ML.BAG IVPB SCH ×2 (12:46→15:11)
[2020-09-24] MEDS: SODIUM CHLORIDE 0.9% 1,000 ML IV SCH (16:10)
[2020-09-24] MEDS: ALBUTEROL HFA INHALER INHALATION PRN (16:39)
[2020-09-24 17:12] LABS: Glucose,Whole Blood 120 mg/dL (75-99)
[2020-09-24] MEDS: MVI, ADULT NO.4 WITH VIT K 10 ML, TRACE (CONC-1ML/DOSE) 1 ML in AMINO ACID 5%-D15W+LYTE... IV SCH ×3 (17:31)
--- NOTE | 2020-09-24 17:36 | P.PN ---
Subjective Progress Note Date: 09/24/20 CHIEF COMPLAINT: Bowel obstruction HISTORY OF PRESENT ILLNESS: The patient is a 49-year-old male status post lysis of adhesions 09/21/2020 for small bowel obstruction. He is tolerating liquid diet. No flatus. No bowel movements. His pain is controlled. ROS: No reports of nausea and vomiting. No bowel movements. No fevers or chills. No new chest pain. No productive sputum PHYSICAL EXAM: VITAL SIGNS: Reviewed CONSTITUTIONAL: Well developed and in no acute distress. EYES: Conjuctivae without sclera icterus. Extraocular movements grossly intact. HEAD, EARS, NOSE, THROAT: Moist buccal mucosa. Head is atraumatic, normocephalic. Hears conversational speech. No nasal drainage. NECK: No gross thyroidomegaly. No jugular venous distention. RESPIRATORY: Non-labored respirations and equal bilateral excursions. CARDIOVASCULAR: Palpable 2+ radial pulses. ABDOMEN: Incisions without infection. Dressing intact. Protuberant. MUSCULOSKELETAL: No gross deformity of the lower extremities noted. No clubbing. No cyanosis. SKIN: Good skin turgor. Well perfused. NEUROLOGIC: Cranial nerves II through XII grossly intact. No focal or lateralizing signs. PSYCH: Appropriate affect. Alert and oriented to person, place and time. CLINICAL LABS: White blood cell count elevated at 12.4 down from 18.8. Creatinine normal 0.84 ASSESSMENT: 1. Small bowel obstruction due to adhesions PLAN: 1. Clear liquid diet 2. Await bowel function. Objective - Vital Signs Vital signs: Vital Signs Temp 97.7 F 09/24/20 13:00 Pulse 91 09/24/20 13:00 Resp 18 09/24/20 13:00 BP 140/89 09/24/20 13:00 Pulse Ox 96 09/24/20 13:00 Intake & Output 09/23/20 09/24/20 09/24/20 18:59 06:59 18:59 Intake Total 671.5 1850 Balance 671.5 1850 Weight 127.006 kg Intake: Intake, IV Titration 671.5 1850 Amount Fat Emulsion 20% 250 ml @ 250 21 mls/hr IV DAILY [facility] Rx#:[id number] Mvi, Adult No.4 with Vit 671.5 K 10 ml Trace (Conc-1Ml/ Dose) 1 ml In Amino Acid 5%-D15w+Lytes*E* 1,000 ml @ 30 mls/hr IV .Q24H [facility] Rx#:[id number] Sodium Chloride 0.9% 1, 1500 000 ml @ 125 mls/hr IV . Q8H [facility] Rx#:[id number] ceFAZolin 1,000 mg In 100 Sodium Chloride 0.9% 50 ml @ 100 mls/hr IVPB Q8H [facility] Rx#:[id number] Other: Voiding Method Toilet Toilet Urinal Urinal # Voids 2 5 # Bowel Movements 1 - Labs CBC & Chem 7: 09/23/20 05:30 09/24/20 06:36 Labs: Abnormal Lab Results - Last 24 Hours (Table) 09/23/20 09/24/20 09/24/20 Range/Units 17:45 00:13 05:52 Sodium (137-145) mmol/L Potassium (3.5-5.1) mmol/L Chloride (98-107) mmol/L BUN (9-20) mg/dL Glucose (74-99) mg/dL POC Glucose (mg/dL) 107 H 121 H 124 H (75-99) mg/dL Magnesium (1.6-2.3) mg/dL Total Bilirubin (0.2-1.3) mg/dL Total Protein (6.3-8.2) g/dL Albumin (3.5-5.0) g/dL 09/24/20 09/24/20 Range/Units 06:36 11:30 Sodium 131 L (137-145) mmol/L Potassium 3.3 L (3.5-5.1) mmol/L Chloride 97 L (98-107) mmol/L BUN 8 L (9-20) mg/dL Glucose 119 H (74-99) mg/dL POC Glucose (mg/dL) 128 H (75-99) mg/dL Magnesium 1.5 L (1.6-2.3) mg/dL Total Bilirubin 0.1 L (0.2-1.3) mg/dL Total Protein 4.9 L (6.3-8.2) g/dL Albumin 2.5 L (3.5-5.0) g/dL
[2020-09-24] MEDS: ONDANSETRON 4 MG/2 ML VIAL IVP PRN (19:34)
[2020-09-24 23:43] LABS: Glucose,Whole Blood 116 mg/dL (75-99)
[2020-09-25] MEDS: HYDROmorphone 1 MG/ML 1 ML SYRINGE IVP PRN ×7 (00:45→21:39)
[2020-09-25] MEDS: METOCLOPRAMIDE 5 MG/ML 2 ML VIAL IVP PRN ×2 (02:10→08:30)
[2020-09-25] MEDS: SODIUM CHLORIDE 0.9% 1,000 ML IV SCH ×2 (04:08→14:54)
[2020-09-25 04:54] LABS: ALT 19 U/L (4-49); AST 24 U/L (17-59); African American GFR (CKD) >90 (>60 ml/min/1.73 sqM); Albumin 2.9 g/dL (3.5-5.0); Albumin/Globulin Ratio 1.2; Alkaline Phosphatase 50 U/L (38-126); Anion Gap 8 mmol/L; Blood Urea Nitrogen 8 mg/dL (9-20); Carbon Dioxide 28 mmol/L (22-30); Chloride 96 mmol/L (98-107); Globulin 2.5 g/dL; Glucose 120 mg/dL (74-99); Magnesium 1.6 mg/dL (1.6-2.3); Non-African American GFR(CKD) >90 (>60 ml/min/1.73 sqM); Phosphorus 4.9 mg/dL (2.5-4.5); Potassium 4.2 mmol/L (3.5-5.1); Sodium 132 mmol/L (137-145); Total Bilirubin 0.3 mg/dL (0.2-1.3); Total Protein 5.4 g/dL (6.3-8.2)
[2020-09-25 06:01] LABS: Glucose,Whole Blood 128 mg/dL (75-99)
[2020-09-25] MEDS: INSULIN ASPART (NovoLOG) 100 UNIT/ML VIAL SQ SCH ×4 (06:02→23:51)
[2020-09-25] MEDS: LACTATED RINGERS 1,000 ML IV SCH (06:03)
[2020-09-25] MEDS: METOPROLOL TARTRATE 50 MG TAB PO SCH ×2 (08:29→21:39)
[2020-09-25] MEDS: ENOXAPARIN 40 MG/0.4 ML SYRINGE SQ SCH (08:30)
[2020-09-25] MEDS: lisinopriL 10 MG TAB PO SCH ×2 (08:30→21:39)
[2020-09-25] MEDS: PANTOPRAZOLE 40 MG/10 ML VIAL IVP SCH (08:30)
[2020-09-25] MEDS: MAGNESIUM OXIDE 400 MG TAB PO SCH (08:30)
[2020-09-25] MEDS: FAT EMULSION 20% 250 ML IV SCH (08:30)
[2020-09-25] MEDS: MAGNESIUM SULFATE-D5W PMX 1 GM in DEXTROSE/WATER 1 100ML.BAG IVPB SCH ×2 (08:30→10:30)
[2020-09-25] MEDS: hydroCHLOROthiazide 12.5 MG CAP PO SCH (08:30)
[2020-09-25] MEDS: NON FORMULARY DRUG (Ciclesonide [Alvesco] 6.1 GM Hfa.Aer.Ad) INHALATION SCH ×2 (10:36→20:43)
[2020-09-25 11:23] LABS: Glucose,Whole Blood 134 mg/dL (75-99)
--- NOTE | 2020-09-25 11:34 | P.PN ---
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 Patient is currently residing in [facility]. Patient will not provide details of his incarceration. Patient complains of epigastric pain that started at 5 PM yesterday. He states he tried to walk it off but that did not seem to help. He denies any nausea or vomiting. Patient states he had 3 bowel movements yesterday, 2 in the morning and 1 in the afternoon. He is not passing gas. He denies any blood in the stool. He has history of multiple abdominal surgeries. Patient was brought into [facility] emergency center for evaluation. Patient was found to be afebrile, initial heart rate 121 with repeat 101, blood pressure 119/86, pulse ox 97% on room air. Blood work revealed WBC 18.4, hemoglobin 13.7, platelets 540. INR 1.0. Sodium 134, potassium 4.4, chloride 101, CO2 20, BUN 33 creatinine 2.19. Baseline creatinine 1.5/1.6. Liver function tests were normal. Troponin was normal. Lipase 305. Urinalysis clear with nitrate and leuk on esterase negative. Small amount of blood. Rare bacteria. Chest x-ray normal. CAT scan of the abdomen and pelvis without contrast revealed dilated loops of small bowel in the mid abdomen suggestive partial obstruction. Patient has been admitted and consult in place with Dr. Fernandez. Patient is seen today in the emergency center while waiting for [facility]. 09/14: Patient's diet was advanced yesterday by Dr. Fernandez to clear liquids and patient states as soon as he had eaten he developed significant abdominal pain. Is not passing gas and has not had a bowel movement. Patient has been placed nothing by mouth and Zofran increased to every 6 hours, abdominal x-rays ordered stat which reveals high grade partial or early complete small bowel obstruction. Patient is afebrile, heart rate 95, blood pressure 173/96, pulse ox 90% on room air. Repeat blood work reveals WBC of 21.3, hemoglobin 14.6, platelet count 449. Electrolytes are normal. BUN 25 and creatinine 1.42. Blood sugars are running between 167 and 188. 09/15: Patient had NGT placed yesterday currently to suction. He states he is passing a very small amount of gas, no bowel movements. Abdominal x-ray this morning reveals gradual improving small bowel obstruction with greater degree of air in the left side of the colon and decreasing caliber of dilated small bowel loops. Patient started on IV antibiotics with Zosyn and continued on IV fluids at 125 mL per hour. Patient is afebrile, heart rate 108, blood pressure 127/83, pulse ox 98% on room air. Blood work reveals WBC 14.2, platelet count 476, hemoglobin 13.7. Sodium 141, potassium 4.9, chloride 108, CO2 24, BUN 28 creatinine 1.41. Blood sugars are running between 117 and 169. 09/16: Patient has been afebrile, heart rate 95-113, blood pressure 124/71, pulse ox 95% on room air. WBC 11.8, hemoglobin 11.7, platelet count 412. Blood sugars are running between 102 112. Pro-calcitonin 0.33. Repeat abdominal x-rays this morning reveals overall nonobstructive bowel gas pattern. patient states that he has passing a little bit of gas. NG tube remains in place. Abdomen is soft.plan to continue Zosyn. 09/17 patient examined at bedside. He had a small bowel movement and is passing gas. Abdominal x-ray was negative for obstruction. Vital signs were obtained temp of 98.6 pulse 82 respiratory rate 18 blood pressure 139/76 no recent labs to compare. Surgery recommended removing nasogastric tube today and starting patient on clear liquid diet patient denies any abdominal pain on assessment denies any nausea or vomiting. Denies any dark stools. Denies any chest pain or breathing difficulty. 09/18 patient examined bedside. He is nauseous this morning. Continue full liquid diet per surgery. Patient continues to have bowel movement and flatus. He denies any abdominal pain, chest pain or shortness of breath. Vitals reviewed patient is afebrile pulse 92 respiratory rate 16 blood pressure 155/88. No recent labs. Repeat labs tomorrow 09/19: Patient has been continued on clear liquid diet, IV fluids at 125 mL per hour. Antibiotics were discontinued. Abdominal x-ray reveals increasing number of air fluid levels in the mid left abdominal bowel without any clark small bowel dilatation identified. The transverse colon is patulous measuring up to 6.6 cm though relatively similar mild overall colonic air. Patient has been afebrile, heart rate 91, blood pressure 160/93, pulse ox 90% on room air. Hydrochlorothiazide resumed and lisinopril increased to twice daily dosing. Repeat blood work this morning reveals WBC 9.9, hemoglobin 11.5, platelet count 404. Electrolytes and renal function normal. Blood sugars running between 90 and 119. 8/3: Patient remains afebrile, heart rate 80, blood pressure 118/80, pulse ox 96% on room air. Patient has had retching increasing abdominal distention. He states he is having a little small bowel movements but no gas. Repeat abdominal x-rays reveals interval significant worsening now with clark small bowel obstruction, small bowel loops dilated up to 6.3 cm his been made nothing by mouth, NG tube ordered, patient is scheduled for surgery tomorrow with Dr. Fernandez. 09/21: Patient found to have very good bowel sounds this morning he states he had a bowel movement. NG tube was never placed yesterday and he was continued on clear liquids. Repeat abdominal x-ray ordered. Patient is scheduled for surgical intervention today with Dr. Fernandez. He remains afebrile, heart rate 90, blood pressure 145/90, pulse ox 96% on room air. Repeat blood work reveals WBC 16.2, hemoglobin 12.2, platelet count 437. Sodium 134, potassium 3.9, chloride 100, CO2 21, BUN 10 and creatinine 0.96. Blood sugars are running between 74 and 100. 8/5: Yesterday, patient underwent partial omentectomy and lysis of adhesions, repair of incisional hernia. Patient states his abdomen feels sore. He is not passing gas. 112-144. Blood pressure 131/75, pulse ox 96% on room air. WBC 18.8, hemoglobin 13.2, platelet count 507. Blood sugars are running in the 90s to 116. 8/6: Patient had PICC line placed for TPN and magnesium potassium replaced today. He is using incentive spirometry. Patient has been able to walk in the hallway. He states he is passing very little gas. He remains nothing by mouth. He denies any fever or chills. He does have bowel sounds today. Patient has been afebrile, heart rate in the low 100s, blood pressure 138/86, pulse ox 93% on room air. WBC 12.4, hemoglobin 11.3, platelet count 466. Sodium 134, otherwise electrolytes are normal, creatinine 0.87. Blood sugars running between 114 and 129. 09/24: Patient has been increased to clear liquids. He has been ambulatory in the hallway. He has passed some gas however has not had a bowel movement yet. No NG tube in place. His been utilizing his incentive spirometer. We will continue with TPN until patient has been moved to a regular diet. Bowel sounds are present hypoactive. Patient remained afebrile, heart rate 95, respirations 18, blood pressure 142/88 pulse ox 93% on room air. 09/25: Was advanced to a full liquid diet however he does not much of an appetite and did not eat much of his breakfast. He continues to pass gas however has not had a bowel movement yet. NG tube is not in place. He has been utilizing his incentive progress from her. At this time will continue with TPN until patient has been moved to a regular diet. Bowel sounds remain hypoactive. Patient remains afebrile at this time. No complaints or concerns noted. Patient is not in any acute distress. Dressing is in place clean and dry. REVIEW OF SYSTEMS Constitutional: No fever, no chills, no night sweats. No weight change. No weakness, fatigue or lethargy. No daytime sleepiness. EENT: No headache. No blurred vision or double vision, no loss of vision. No loss of Hearing, no ringing in the ears, no dizziness. No nasal drainage or congestion. No epistaxis. No sore throat. Lungs: No shortness of breath, cough, no sputum production. No wheezing. Cardiovascular: No chest pain, no lower extremity edema. No palpitations. No paroxysmal nocturnal dyspnea. No orthopnea. No lightheadedness or dizziness. No syncopal episodes. Abdominal: Reports abdominal pain/discomfort, denies nausea, denies vomiting. No diarrhea. No constipation No bloody or tarry stools. No flatulence. Reports loss of appetite. Genitourinary: No dysuria, increased frequency, urgency. No urinary retention. Musculoskeletal: No myalgias. No muscle weakness, no gait dysfunction, no frequent falls. No back pain. No neck pain. Integumentary: No wounds, no lesions. No rash or pruritus. No unusual bruising. No change in hair or nails. Neurologic: No aphasia. No facial droop. No change in mentation. No head injury. No headache. No paralysis. No paresthesia. Psychiatric: No depression. No anxiety. No mood swings. Endocrine: No abnormal blood sugars. PHYSICAL EXAMINATION Gen: This is an obese 49-year-old male. Patient is resting in bed and appears to be in no acute distress. HEENT: Head is atraumatic, normocephalic. Pupils equal, round. Sclerae is anicteric. NECK: Supple. No JVD. No lymphadenopathy. No thyromegaly. LUNGS: Clear to auscultation. No wheezes or rhonchi. No intercostal retractions. HEART: Regular rate and rhythm. No murmur. ABDOMEN: Bowel sounds present hypoactive. No masses. Generalized abdominal tenderness. Dressing in place clean and dry EXTREMITIES: No pedal edema. No calf tenderness. NEUROLOGICAL: Patient is awake, alert and oriented x3. Cranial nerves 2 through 12 are grossly intact. ASSESSMENT AND PLAN 1. Partial small bowel obstruction s/p partial omentectomy, lysis of adhesions and repair of incisional hernia 09/21. Consult with general surgery appreciated. Advanced to clear liquid, continue current pain management, Zofran as needed for nausea. 2. Acute kidney injury, resolved. Patient is on IV fluids at d to 125 mL/h. 3. History of renal cell cancer, stable. 4. Hypertension. Resume hydrochlorothiazide and increase frequency of lisinopril to 10 mg twice daily, continue Lopressor 100 mg twice daily. Hydralazine IV will be added for blood pressure control. 5. Hyperlipidemia. Hold fenofibrate 160 mg at bedtime. 6. Diabetes mellitus type 2. Hold glipizide 10 mg daily, metformin 1000 mg twice daily, continue NovoLog scale. 7. Gastroesophageal reflux disease. Continue Protonix 40 mg IV push daily. 8. Chronic back pain. 9. History of SVT. Continue Lopressor. 10. Severe protein calorie malnutrition due to extended period of nothing by mouth status. Patient had PICC line placed and started on TPN. 11. DVT prophylaxis. Lovenox subcu. DISCHARGE PLAN Return To [facility] Impression and plan of care have been directed as dictated by the signing physician. Heavenly Montano nurse practitioner acting as scribe for signing physician. Objective - Vital Signs Vital signs: Vital Signs Temp 98.2 F 09/25/20 04:45 Pulse 90 09/25/20 04:45 Resp 16 09/25/20 04:45 BP 145/87 09/25/20 04:45 Pulse Ox 95 09/25/20 04:45 Intake & Output 09/24/20 09/25/20 09/25/20 18:59 06:59 18:59 Intake Total 770.5 1840 Output Total 200 Balance 770.5 1840 -200 Intake: Intake, IV Titration 770.5 1600 Amount Mvi, Adult No.4 with Vit 770.5 K 10 ml Trace (Conc-1Ml/ Dose) 1 ml In Amino Acid 5%-D15w+Lytes*E* 1,000 ml @ 30 mls/hr IV .Q24H [facility] Rx#:[id number] Sodium Chloride 0.9% 1, 1500 000 ml @ 125 mls/hr IV . Q8H [facility] Rx#:[id number] ceFAZolin 1,000 mg In 100 Sodium Chloride 0.9% 50 ml @ 100 mls/hr IVPB Q8H [facility] Rx#:[id number] Oral 240 Output: Urine 200 Other: # Voids 4 3 - Labs CBC & Chem 7: 09/23/20 05:30 09/25/20 03:31 Labs: Abnormal Lab Results - Last 24 Hours (Table) 09/24/20 09/24/20 09/25/20 Range/Units 17:11 23:41 03:31 Sodium 132 L (137-145) mmol/L Chloride 96 L (98-107) mmol/L BUN 8 L (9-20) mg/dL Glucose 120 H (74-99) mg/dL POC Glucose (mg/dL) 120 H 116 H (75-99) mg/dL Phosphorus 4.9 H (2.5-4.5) mg/dL Total Protein 5.4 L (6.3-8.2) g/dL Albumin 2.9 L (3.5-5.0) g/dL 09/25/20 09/25/20 Range/Units 05:58 11:21 Sodium (137-145) mmol/L Chloride (98-107) mmol/L BUN (9-20) mg/dL Glucose (74-99) mg/dL POC Glucose (mg/dL) 128 H 134 H (75-99) mg/dL Phosphorus (2.5-4.5) mg/dL Total Protein (6.3-8.2) g/dL Albumin (3.5-5.0) g/dL
--- NOTE | 2020-09-25 13:45 | P.PN ---
Subjective Progress Note Date: 09/25/20 CHIEF COMPLAINT: Bowel obstruction HISTORY OF PRESENT ILLNESS: The patient is a 49-year-old male status post lysis of adhesions 09/21/2020 for small bowel obstruction. He is tolerating liquid diet. He is passing much flatus. He is eager for advance of his diet. He is laying in bed with guards. ROS: No reports of nausea and vomiting. No fevers or chills. No new chest pain. No productive sputum PHYSICAL EXAM: VITAL SIGNS: Reviewed CONSTITUTIONAL: Well developed and in no acute distress. EYES: Conjuctivae without sclera icterus. Extraocular movements grossly intact. HEAD, EARS, NOSE, THROAT: Moist buccal mucosa. Head is atraumatic, normocephalic. Hears conversational speech. No nasal drainage. NECK: No gross thyroidomegaly. No jugular venous distention. RESPIRATORY: Non-labored respirations and equal bilateral excursions. CARDIOVASCULAR: Palpable 2+ radial pulses. ABDOMEN: Incisions without infection. Soiled dried dressing discontinued. Protuberant MUSCULOSKELETAL: No gross deformity of the lower extremities noted. No clubbing. No cyanosis. SKIN: Good skin turgor. Well perfused. NEUROLOGIC: Cranial nerves II through XII grossly intact. No focal or lateralizing signs. PSYCH: Appropriate affect. Alert and oriented to person, place and time. CLINICAL LABS: Reviewed. Sodium low 132. ASSESSMENT: 1. Small bowel obstruction due to adhesions PLAN: 1. Increased diet to pureed. 2. Wound care with Chloraprep daily Objective - Vital Signs Vital signs: Vital Signs Temp 98.3 F 09/25/20 11:47 Pulse 88 09/25/20 11:47 Resp 18 09/25/20 11:47 BP 140/90 09/25/20 11:47 Pulse Ox 96 09/25/20 11:47 Intake & Output 09/24/20 09/25/20 09/25/20 18:59 06:59 18:59 Intake Total 770.5 1840 Output Total 200 Balance 770.5 1840 -200 Intake: Intake, IV Titration 770.5 1600 Amount Mvi, Adult No.4 with Vit 770.5 K 10 ml Trace (Conc-1Ml/ Dose) 1 ml In Amino Acid 5%-D15w+Lytes*E* 1,000 ml @ 30 mls/hr IV .Q24H [facility] Rx#:[id number] Sodium Chloride 0.9% 1, 1500 000 ml @ 125 mls/hr IV . Q8H [facility] Rx#:[id number] ceFAZolin 1,000 mg In 100 Sodium Chloride 0.9% 50 ml @ 100 mls/hr IVPB Q8H [facility] Rx#:[id number] Oral 240 Output: Urine 200 Other: # Voids 4 3 - Labs CBC & Chem 7: 09/23/20 05:30 09/25/20 03:31 Labs: Abnormal Lab Results - Last 24 Hours (Table) 09/24/20 09/24/20 09/25/20 Range/Units 17:11 23:41 03:31 Sodium 132 L (137-145) mmol/L Chloride 96 L (98-107) mmol/L BUN 8 L (9-20) mg/dL Glucose 120 H (74-99) mg/dL POC Glucose (mg/dL) 120 H 116 H (75-99) mg/dL Phosphorus 4.9 H (2.5-4.5) mg/dL Total Protein 5.4 L (6.3-8.2) g/dL Albumin 2.9 L (3.5-5.0) g/dL 09/25/20 09/25/20 Range/Units 05:58 11:21 Sodium (137-145) mmol/L Chloride (98-107) mmol/L BUN (9-20) mg/dL Glucose (74-99) mg/dL POC Glucose (mg/dL) 128 H 134 H (75-99) mg/dL Phosphorus (2.5-4.5) mg/dL Total Protein (6.3-8.2) g/dL Albumin (3.5-5.0) g/dL Assessment and Plan (1) Morbid obesity due to excess calories Current Visit: Yes Status: Acute Code(s): E66.01 - MORBID (SEVERE) OBESITY DUE TO EXCESS CALORIES SNOMED Code(s): 416363496 (2) Peritoneal adhesions Current Visit: Yes Status: Acute Code(s): K66.0 - PERITONEAL ADHESIONS (POSTPROCEDURAL) (POSTINFECTION) SNOMED Code(s): 48142895 (3) Small bowel obstruction Current Visit: Yes Status: Acute Code(s): K56.609 - UNSP INTESTNL OBST, UNSP TO PARTIAL VERSUS COMPLETE OBST SNOMED Code(s): 428504936 (4) Obesity, morbid, BMI 40.0-49.9 Current Visit: No Status: Acute Code(s): E66.01 - MORBID (SEVERE) OBESITY DUE TO EXCESS CALORIES SNOMED Code(s): 296506446
[2020-09-25 17:44] LABS: Glucose,Whole Blood 108 mg/dL (75-99)
[2020-09-25] MEDS: 1: MVI, ADULT NO.4 WITH VIT K 10 ML, TRACE (CONC-1ML/DOSE) 1 ML in AMINO ACID 5%-D15W+LY IV SCH ×3 (17:52)
[2020-09-25] MEDS: ONDANSETRON 4 MG/2 ML VIAL IVP PRN (20:14)
[2020-09-25 23:49] LABS: Glucose,Whole Blood 135 mg/dL (75-99)
[2020-09-26] MEDS: HYDROmorphone 1 MG/ML 1 ML SYRINGE IVP PRN ×3 (00:56→07:30)
[2020-09-26] MEDS: 1: MVI, ADULT NO.4 WITH VIT K 10 ML, TRACE (CONC-1ML/DOSE) 1 ML in AMINO ACID 5%-D15W+LY IV SCH ×6 (04:07→05:00)
[2020-09-26] MEDS: SODIUM CHLORIDE 0.9% 1,000 ML IV SCH ×2 (05:22→07:34)
[2020-09-26] MEDS: LACTATED RINGERS 1,000 ML IV SCH (05:23)
[2020-09-26 06:21] LABS: Glucose,Whole Blood 135 mg/dL (75-99)
[2020-09-26] MEDS: INSULIN ASPART (NovoLOG) 100 UNIT/ML VIAL SQ SCH ×3 (06:21→18:20)
[2020-09-26 07:03] LABS: Glucose,Whole Blood 144 mg/dL (75-99)
[2020-09-26 07:49] LABS: ALT 14 U/L (4-49); AST 20 U/L (17-59); African American GFR (CKD) >90 (>60 ml/min/1.73 sqM); Albumin 2.6 g/dL (3.5-5.0); Albumin/Globulin Ratio 1.1; Alkaline Phosphatase 46 U/L (38-126); Anion Gap 7 mmol/L; Blood Urea Nitrogen 12 mg/dL (9-20); Calcium 8.8 mg/dL (8.4-10.2); Carbon Dioxide 26 mmol/L (22-30); Chloride 98 mmol/L (98-107); Globulin 2.4 g/dL; Glucose 144 mg/dL (74-99); Magnesium 1.5 mg/dL (1.6-2.3); Non-African American GFR(CKD) >90 (>60 ml/min/1.73 sqM); Potassium 3.6 mmol/L (3.5-5.1); Sodium 131 mmol/L (137-145); Total Bilirubin 0.2 mg/dL (0.2-1.3)
[2020-09-26] MEDS: NON FORMULARY DRUG (Ciclesonide [Alvesco] 6.1 GM Hfa.Aer.Ad) INHALATION SCH ×2 (08:35→21:10)
[2020-09-26] MEDS: PANTOPRAZOLE 40 MG/10 ML VIAL IVP SCH (08:36)
[2020-09-26] MEDS: hydroCHLOROthiazide 12.5 MG CAP PO SCH (08:36)
[2020-09-26] MEDS: METOPROLOL TARTRATE 50 MG TAB PO SCH ×2 (08:36→21:03)
[2020-09-26] MEDS: ENOXAPARIN 40 MG/0.4 ML SYRINGE SQ SCH (08:36)
[2020-09-26] MEDS: lisinopriL 10 MG TAB PO SCH ×2 (08:36→21:04)
[2020-09-26] MEDS: MAGNESIUM OXIDE 400 MG TAB PO SCH (08:36)
[2020-09-26] MEDS: FAT EMULSION 20% 250 ML IV SCH (08:37)
[2020-09-26] MEDS ORDERED: POTASSIUM CHLORIDE 20 MEQ in WATER FOR INJECTION 1 100ML.BAG IVPB SCH (09:15)
[2020-09-26] MEDS: MAGNESIUM SULFATE-D5W PMX 1 GM in DEXTROSE/WATER 1 100ML.BAG IVPB SCH ×2 (09:58→11:00)
[2020-09-26] MEDS ORDERED: POTASSIUM CHLORIDE 20 MEQ in WATER FOR INJECTION 1 100ML.BAG IVPB ONE (10:00)
[2020-09-26] MEDS: HYDROcodone/APAP 5-325MG 1 EACH TAB PO PRN ×3 (10:59→21:04)
[2020-09-26 12:00] LABS: Glucose,Whole Blood 143 mg/dL (75-99)
--- NOTE | 2020-09-26 12:52 | P.PN ---
Subjective Progress Note Date: 09/26/20 CHIEF COMPLAINT: Abdominal pain HISTORY OF PRESENT ILLNESS: Patient is status post partial omentectomy, lysis of extensive adhesions and repair of incisional hernia. Patient does report abdominal pain at his incision site. Pain is controlled. He is only been using the IV Dilaudid. Oral Erie being started today. He was started on pured diet yesterday. He did not likeit. Diet he has not been eating. He currently has TPN for nutrition support. He is having bowel movements and passing gas. He does report occasional nausea. Afebrile magnesium low 1.5 being replaced sodium 131 PHYSICAL EXAM: VITAL SIGNS: Reviewed. GENERAL: Well-developed in no acute distress. HEENT: No sclera icterus. Extraocular movements grossly intact. Moist buccal mucosa. Head is atraumatic, normocephalic. ABDOMEN: Soft. Nondistended incision site clean dry and intact NEUROLOGIC: Alert and oriented. Cranial nerves II through XII grossly intact. ASSESSMENT: 1. Small bowel obstruction status post partial omentectomy, lysis of extensive adhesions and repair of incisional hernia. Postop day #5 PLAN: -Start patient on regular diet -Add oral Erie -Magnesium being replaced per pharmacy -Continue TPN for nutrition support until oral intake increase -Continue antibiotics -Encouraged patient to use incentive spirometer -Encouraged patient to increase activity level -GI prophylaxis Protonix and DVT prophylaxis Lovenox Physician [employer] Burnisher note has been reviewed by physician. Signing provider agrees with the documented findings, assessment, and plan of care. Objective - Vital Signs Vital signs: Vital Signs Temp 98.4 F 09/26/20 11:55 Pulse 87 09/26/20 11:55 Resp 16 09/26/20 11:55 BP 145/95 09/26/20 11:55 Pulse Ox 97 09/26/20 11:55 Intake & Output 09/25/20 09/26/20 09/26/20 18:59 06:59 18:59 Intake Total 5.083 Output Total 450 Balance -450 5.083 Intake: Intake, IV Titration 1775.083 Amount Amino Acid 5%-D15w+Lytes* 75.083 E* 1,000 ml @ 85 mls/hr IV .BY DURATION [facility] Rx#: [id number] Sodium Chloride 0.9% 1, 1500 000 ml @ 125 mls/hr IV . Q8H [facility] Rx#:[id number] ceFAZolin 1,000 mg In 200 Sodium Chloride 0.9% 50 ml @ 100 mls/hr IVPB Q8H [facility] Rx#:[id number] Oral 320 Output: Urine 450 Other: # Voids 3 2 - Labs CBC & Chem 7: 09/23/20 05:30 09/26/20 07:21 Labs: Abnormal Lab Results - Last 24 Hours (Table) 09/25/20 09/25/20 09/26/20 Range/Units 17:42 23:47 06:20 Sodium (137-145) mmol/L Glucose (74-99) mg/dL POC Glucose (mg/dL) 108 H 135 H 135 H (75-99) mg/dL Phosphorus (2.5-4.5) mg/dL Magnesium (1.6-2.3) mg/dL Total Protein (6.3-8.2) g/dL Albumin (3.5-5.0) g/dL 09/26/20 09/26/20 09/26/20 Range/Units 07:02 07:21 11:59 Sodium 131 L (137-145) mmol/L Glucose 144 H (74-99) mg/dL POC Glucose (mg/dL) 144 H 143 H (75-99) mg/dL Phosphorus 5.0 H (2.5-4.5) mg/dL Magnesium 1.5 L (1.6-2.3) mg/dL Total Protein 5.0 L (6.3-8.2) g/dL Albumin 2.6 L (3.5-5.0) g/dL
[2020-09-26] MEDS: HYDROmorphone 0.5 MG/0.5 ML SYRINGE IVP PRN ×3 (14:12→23:12)
[2020-09-26] MEDS ORDERED: lisinopriL 10 MG TAB PO STA (15:30)
--- NOTE | 2020-09-26 15:33 | P.PN ---
Subjective Progress Note Date: 09/26/20 HISTORY OF PRESENT ILLNESS This is a 49-year-old male patient of [facility], patient follows with Rosalia Gallagher SHOULDER JOINER, with past medical history of hypertension, hyperlipidemia, diabetes mellitus type 2, gastroesophageal reflux disease, chronic back pain, SVT, renal cell cancer, peptic ulcer disease, generalized anxiety disorder. Patient is currently residing in [facility]. Patient will not provide details of his incarceration. Patient complains of epigastric pain that started at 5 PM yesterday. He states he tried to walk it off but that did not seem to help. He denies any nausea or vomiting. Patient states he had 3 bowel movements yesterday, 2 in the morning and 1 in the afternoon. He is not passing gas. He denies any blood in the stool. He has history of multiple abdominal surgeries. Patient was brought into [facility] emergency center for evaluation. Patient was found to be afebrile, initial heart rate 121 with repeat 101, blood pressure 119/86, pulse ox 97% on room air. Blood work revealed WBC 18.4, hemoglobin 13.7, platelets 540. INR 1.0. Sodium 134, potassium 4.4, chloride 101, CO2 20, BUN 33 creatinine 2.19. Baseline creatinine 1.5/1.6. Liver function tests were normal. Troponin was normal. Lipase 305. Urinalysis clear with nitrate and leuk on esterase negative. Small amount of blood. Rare bacteria. Chest x-ray normal. CAT scan of the abdomen and pelvis without contrast revealed dilated loops of small bowel in the mid abdomen suggestive partial obstruction. Patient has been admitted and consult in place with Dr. Fernandez. Patient is seen today in the emergency center while waiting for [facility]. 09/14: Patient's diet was advanced yesterday by Dr. Fernandez to clear liquids and patient states as soon as he had eaten he developed significant abdominal pain. Is not passing gas and has not had a bowel movement. Patient has been placed nothing by mouth and Zofran increased to every 6 hours, abdominal x-rays ordered stat which reveals high grade partial or early complete small bowel obstruction. Patient is afebrile, heart rate 95, blood pressure 173/96, pulse ox 90% on room air. Repeat blood work reveals WBC of 21.3, hemoglobin 14.6, platelet count 449. Electrolytes are normal. BUN 25 and creatinine 1.42. Blood sugars are running between 167 and 188. 09/15: Patient had NGT placed yesterday currently to suction. He states he is passing a very small amount of gas, no bowel movements. Abdominal x-ray this morning reveals gradual improving small bowel obstruction with greater degree of air in the left side of the colon and decreasing caliber of dilated small bowel loops. Patient started on IV antibiotics with Zosyn and continued on IV fluids at 125 mL per hour. Patient is afebrile, heart rate 108, blood pressure 127/83, pulse ox 98% on room air. Blood work reveals WBC 14.2, platelet count 476, hemoglobin 13.7. Sodium 141, potassium 4.9, chloride 108, CO2 24, BUN 28 creatinine 1.41. Blood sugars are running between 117 and 169. 09/16: Patient has been afebrile, heart rate 95-113, blood pressure 124/71, pulse ox 95% on room air. WBC 11.8, hemoglobin 11.7, platelet count 412. Blood sugars are running between 102 112. Pro-calcitonin 0.33. Repeat abdominal x-rays this morning reveals overall nonobstructive bowel gas pattern. patient states that he has passing a little bit of gas. NG tube remains in place. Abdomen is soft.plan to continue Zosyn. 09/17 patient examined at bedside. He had a small bowel movement and is passing gas. Abdominal x-ray was negative for obstruction. Vital signs were obtained temp of 98.6 pulse 82 respiratory rate 18 blood pressure 139/76 no recent labs to compare. Surgery recommended removing nasogastric tube today and starting patient on clear liquid diet patient denies any abdominal pain on assessment denies any nausea or vomiting. Denies any dark stools. Denies any chest pain or breathing difficulty. 09/18 patient examined bedside. He is nauseous this morning. Continue full liquid diet per surgery. Patient continues to have bowel movement and flatus. He denies any abdominal pain, chest pain or shortness of breath. Vitals reviewed patient is afebrile pulse 92 respiratory rate 16 blood pressure 155/88. No recent labs. Repeat labs tomorrow 09/19: Patient has been continued on clear liquid diet, IV fluids at 125 mL per hour. Antibiotics were discontinued. Abdominal x-ray reveals increasing number of air fluid levels in the mid left abdominal bowel without any clark small bowel dilatation identified. The transverse colon is patulous measuring up to 6.6 cm though relatively similar mild overall colonic air. Patient has been afebrile, heart rate 91, blood pressure 160/93, pulse ox 90% on room air. Hydrochlorothiazide resumed and lisinopril increased to twice daily dosing. Repeat blood work this morning reveals WBC 9.9, hemoglobin 11.5, platelet count 404. Electrolytes and renal function normal. Blood sugars running between 90 and 119. 8/3: Patient remains afebrile, heart rate 80, blood pressure 118/80, pulse ox 96% on room air. Patient has had retching increasing abdominal distention. He states he is having a little small bowel movements but no gas. Repeat abdominal x-rays reveals interval significant worsening now with clark small bowel obstruction, small bowel loops dilated up to 6.3 cm his been made nothing by mouth, NG tube ordered, patient is scheduled for surgery tomorrow with Dr. Fernandez. 09/21: Patient found to have very good bowel sounds this morning he states he had a bowel movement. NG tube was never placed yesterday and he was continued on clear liquids. Repeat abdominal x-ray ordered. Patient is scheduled for surgical intervention today with Dr. Fernandez. He remains afebrile, heart rate 90, blood pressure 145/90, pulse ox 96% on room air. Repeat blood work reveals WBC 16.2, hemoglobin 12.2, platelet count 437. Sodium 134, potassium 3.9, chloride 100, CO2 21, BUN 10 and creatinine 0.96. Blood sugars are running between 74 and 100. 8/5: Yesterday, patient underwent partial omentectomy and lysis of adhesions, repair of incisional hernia. Patient states his abdomen feels sore. He is not passing gas. 112-144. Blood pressure 131/75, pulse ox 96% on room air. WBC 18.8, hemoglobin 13.2, platelet count 507. Blood sugars are running in the 90s to 116. 8/6: Patient had PICC line placed for TPN and magnesium potassium replaced today. He is using incentive spirometry. Patient has been able to walk in the hallway. He states he is passing very little gas. He remains nothing by mouth. He denies any fever or chills. He does have bowel sounds today. Patient has been afebrile, heart rate in the low 100s, blood pressure 138/86, pulse ox 93% on room air. WBC 12.4, hemoglobin 11.3, platelet count 466. Sodium 134, otherwise electrolytes are normal, creatinine 0.87. Blood sugars running between 114 and 129. 09/24: Patient has been increased to clear liquids. He has been ambulatory in the hallway. He has passed some gas however has not had a bowel movement yet. No NG tube in place. His been utilizing his incentive spirometer. We will continue with TPN until patient has been moved to a regular diet. Bowel sounds are present hypoactive. Patient remained afebrile, heart rate 95, respirations 18, blood pressure 142/88 pulse ox 93% on room air. 09/25: Was advanced to a full liquid diet however he does not much of an appetite and did not eat much of his breakfast. He continues to pass gas however has not had a bowel movement yet. NG tube is not in place. He has been utilizing his incentive progress from her. At this time will continue with TPN until patient has been moved to a regular diet. Bowel sounds remain hypoactive. Patient remains afebrile at this time. No complaints or concerns noted. Patient is not in any acute distress. Dressing is in place clean and dry. 09/26: The patient states that he had a bowel movement this morning and is passing gas. He states he has hiccups. Patient is currently on a pured diet but he doesn't like and then is not eating. He is on TPN which was started for nutri tional support. Diet has been advanced to regular diet and Ceresco added. Plan to continue antibiotics and TPN and possible discharge in the next 24 hours. He has been afebrile, heart rate 99, blood pressure 163/95, pulse ox 97% on room air. REVIEW OF SYSTEMS Constitutional: No fever, no chills, no night sweats. No weight change. No weakness, fatigue or lethargy. No daytime sleepiness. EENT: No headache. No blurred vision or double vision, no loss of vision. No loss of Hearing, no ringing in the ears, no dizziness. No nasal drainage or congestion. No epistaxis. No sore throat. Lungs: No shortness of breath, cough, no sputum production. No wheezing. Cardiovascular: No chest pain, no lower extremity edema. No palpitations. No paroxysmal nocturnal dyspnea. No orthopnea. No lightheadedness or dizziness. No syncopal episodes. Abdominal: Reports abdominal discomfort, denies nausea, denies vomiting. No diarrhea. No constipation No bloody or tarry stools. Reports flatulence. Reports loss of appetite. Genitourinary: No dysuria, increased frequency, urgency. No urinary retention. Musculoskeletal: No myalgias. No muscle weakness, no gait dysfunction, no frequent falls. No back pain. No neck pain. Integumentary: No wounds, no lesions. No rash or pruritus. No unusual bruising. No change in hair or nails. Neurologic: No aphasia. No facial droop. No change in mentation. No head injury. No headache. No paralysis. No paresthesia. Psychiatric: No depression. No anxiety. No mood swings. Endocrine: No abnormal blood sugars. PHYSICAL EXAMINATION Gen: This is an obese 49-year-old male. Patient is resting in bed and appears to be in no acute distress. HEENT: Head is atraumatic, normocephalic. Pupils equal, round. Sclerae is anicteric. NECK: Supple. No JVD. No lymphadenopathy. No thyromegaly. LUNGS: Clear to auscultation. No wheezes or rhonchi. No intercostal retractions. HEART: Regular rate and rhythm. No murmur. ABDOMEN: Bowel sounds present. No masses. Generalized abdominal tenderness. Dressing in place clean and dry EXTREMITIES: No pedal edema. No calf tenderness. NEUROLOGICAL: Patient is awake, alert and oriented x3. Cranial nerves 2 through 12 are grossly intact. ASSESSMENT AND PLAN 1. Partial small bowel obstruction s/p partial omentectomy, lysis of adhesions and repair of incisional hernia 09/21. Consult with general surgery appreciated. Advanced to regular diet, continue current pain management and Ceresco added, Zofran as needed for nausea. 2. Acute kidney injury, resolved. 3. History of renal cell cancer, stable. 4. Hypertension. Resume hydrochlorothiazide and increase lisinopril to 20 mg twice daily, continue Lopressor 100 mg twice daily. Hydralazine IV will be added for blood pressure control. 5. Hyperlipidemia. Hold fenofibrate 160 mg at bedtime. 6. Diabetes mellitus type 2. Hold glipizide 10 mg daily, metformin 1000 mg twice daily, continue NovoLog scale. 7. Gastroesophageal reflux disease. Continue Protonix 40 mg IV push daily. 8. Chronic back pain. 9. History of SVT. Continue Lopressor. 10. Severe protein calorie malnutrition due to extended period of nothing by mouth status. Patient had PICC line placed and started on TPN. 11. DVT prophylaxis. Lovenox subcu. DISCHARGE PLAN Return To [facility] in the next 24 hours Impression and plan of care have been directed as dictated by the signing physician. Luly Coffey nurse practitioner acting as scribe for signing aisha mckoy. Objective - Vital Signs Vital signs: Vital Signs Temp 98.5 F 09/26/20 05:00 Pulse 99 09/26/20 05:00 Resp 16 09/26/20 05:00 BP 163/95 09/26/20 05:00 Pulse Ox 97 09/26/20 05:00 Intake & Output 09/25/20 09/26/20 09/26/20 18:59 06:59 18:59 Intake Total 2095.083 Output Total 450 Balance -450 2095.083 Intake: Intake, IV Titration 1775.083 Amount Amino Acid 5%-D15w+Lytes* 75.083 E* 1,000 ml @ 85 mls/hr IV .BY DURATION SRIKANTH Rx#: [id number] Sodium Chloride 0.9% 1, 1500 000 ml @ 125 mls/hr IV . Q8H SRIKANTH Rx#:[id number] ceFAZolin 1,000 mg In 200 Sodium Chloride 0.9% 50 ml @ 100 mls/hr IVPB Q8H SRIKANTH Rx#:[id number] Oral 320 Output: Urine 450 Other: # Voids 3 2 - Labs CBC & Chem 7: 09/23/20 05:30 09/26/20 07:21 Labs: Abnormal Lab Results - Last 24 Hours (Table) 09/25/20 09/25/20 09/25/20 Range/Units 11:21 17:42 23:47 Sodium (137-145) mmol/L Glucose (74-99) mg/dL POC Glucose (mg/dL) 134 H 108 H 135 H (75-99) mg/dL Phosphorus (2.5-4.5) mg/dL Magnesium (1.6-2.3) mg/dL Total Protein (6.3-8.2) g/dL Albumin (3.5-5.0) g/dL 09/26/20 09/26/20 09/26/20 Range/Units 06:20 07:02 07:21 Sodium 131 L (137-145) mmol/L Glucose 144 H (74-99) mg/dL POC Glucose (mg/dL) 135 H 144 H (75-99) mg/dL Phosphorus 5.0 H (2.5-4.5) mg/dL Magnesium 1.5 L (1.6-2.3) mg/dL Total Protein 5.0 L (6.3-8.2) g/dL Albumin 2.6 L (3.5-5.0) g/dL
[2020-09-26] MEDS: 1: MVI, ADULT NO.4 WITH VIT K 10 ML, TRACE (CONC-1ML/DOSE) 1 ML, PARENTERAL ELECTROLYTES IV SCH ×5 (16:59)
[2020-09-26] MEDS: METOCLOPRAMIDE 5 MG/ML 2 ML VIAL IVP PRN (17:26)
[2020-09-26 17:47] LABS: Glucose,Whole Blood 120 mg/dL (75-99)
[2020-09-26] MEDS: hydrALAZINE HCL 20 MG/ML 1 ML VIAL IVP PRN (19:35)
[2020-09-26] MEDS: ONDANSETRON 4 MG/2 ML VIAL IVP PRN (21:04)
[2020-09-26 23:30] LABS: Glucose,Whole Blood 138 mg/dL (75-99)
[2020-09-27] MEDS: INSULIN ASPART (NovoLOG) 100 UNIT/ML VIAL SQ SCH ×3 (00:13→13:01)
[2020-09-27] MEDS: METOCLOPRAMIDE 5 MG/ML 2 ML VIAL IVP PRN (00:56)
[2020-09-27] MEDS: MELATONIN 5 MG TABLET PO PRN (01:06)
[2020-09-27] MEDS: HYDROcodone/APAP 5-325MG 1 EACH TAB PO PRN ×4 (01:06→15:26)
[2020-09-27] MEDS: HYDROmorphone 0.5 MG/0.5 ML SYRINGE IVP PRN ×2 (02:30→09:15)
[2020-09-27] MEDS: LACTATED RINGERS 1,000 ML IV SCH (04:25)
[2020-09-27] MEDS: 1: MVI, ADULT NO.4 WITH VIT K 10 ML, TRACE (CONC-1ML/DOSE) 1 ML, PARENTERAL ELECTROLYTES IV SCH ×10 (05:24→16:31)
[2020-09-27 05:48] LABS: Basophils # (A) 0.1 k/uL (0-0.2); Basophils % (A) 1 %; Eosinophils # (A) 0.2 k/uL (0-0.7); Eosinophils % (A) 2 %; HGB 10.9 gm/dL (13.0-17.5); Lymphocytes # (A) 1.8 k/uL (1.0-4.8); Lymphocytes % (A) 17 %; MCH 29.4 pg (25.0-35.0); MCHC 33.1 g/dL (31.0-37.0); MCV 88.8 fL (80.0-100.0); Monocytes # (A) 0.7 k/uL (0-1.0); Monocytes % (A) 7 %; Neutrophils # (A) 7.3 k/uL (1.3-7.7); Neutrophils % (A) 71 %; Platelet Count 554 k/uL (150-450); RBC 3.71 m/uL (4.30-5.90); RDW 13.7 % (11.5-15.5); WBC 10.2 k/uL (3.8-10.6)
[2020-09-27 05:59] LABS: ALT 14 U/L (4-49); AST 19 U/L (17-59); African American GFR (CKD) >90 (>60 ml/min/1.73 sqM); Albumin/Globulin Ratio 1.4; Alkaline Phosphatase 50 U/L (38-126); Anion Gap 9 mmol/L; Blood Urea Nitrogen 13 mg/dL (9-20); Calcium 9.4 mg/dL (8.4-10.2); Carbon Dioxide 26 mmol/L (22-30); Chloride 98 mmol/L (98-107); Globulin 2.2 g/dL; Glucose 132 mg/dL (74-99); Magnesium 1.7 mg/dL (1.6-2.3); Non-African American GFR(CKD) >90 (>60 ml/min/1.73 sqM); Phosphorus 5.1 mg/dL (2.5-4.5); Sodium 133 mmol/L (137-145); Total Bilirubin 0.2 mg/dL (0.2-1.3); Total Protein 5.2 g/dL (6.3-8.2)
[2020-09-27 06:38] LABS: Glucose,Whole Blood 146 mg/dL (75-99)
[2020-09-27] MEDS: ONDANSETRON 4 MG/2 ML VIAL IVP PRN (07:54)
[2020-09-27] MEDS: lisinopriL 10 MG TAB PO SCH (09:14)
[2020-09-27] MEDS: hydroCHLOROthiazide 12.5 MG CAP PO SCH (09:14)
[2020-09-27] MEDS: METOPROLOL TARTRATE 50 MG TAB PO SCH (09:14)
[2020-09-27] MEDS: MAGNESIUM OXIDE 400 MG TAB PO SCH (09:14)
[2020-09-27] MEDS: PANTOPRAZOLE 40 MG/10 ML VIAL IVP SCH (09:15)
[2020-09-27] MEDS: ENOXAPARIN 40 MG/0.4 ML SYRINGE SQ SCH (09:15)
[2020-09-27] MEDS: NON FORMULARY DRUG (Ciclesonide [Alvesco] 6.1 GM Hfa.Aer.Ad) INHALATION SCH (09:16)
[2020-09-27] MEDS: FAT EMULSION 20% 250 ML IV SCH (09:16)
[2020-09-27] MEDS: SODIUM CHLORIDE 0.9% 1,000 ML IV SCH (09:17)
[2020-09-27] MEDS: MAGNESIUM SULFATE-D5W PMX 1 GM in DEXTROSE/WATER 1 100ML.BAG IVPB SCH ×2 (10:44→11:38)
[2020-09-27 12:08] LABS: Glucose,Whole Blood 133 mg/dL (75-99)
[2020-09-27 12:43] VITALS: BP 148/93; PULSE 87; RESP 17; TEMP 98.4
--- NOTE | 2020-09-27 12:47 | P.PN ---
Subjective Progress Note Date: 09/27/20 HISTORY OF PRESENT ILLNESS This is a 49-year-old male patient of [facility], patient follows with Rosalia Gallagher WRITING CENTER DIRECTOR, with past medical history of hypertension, hyperlipidemia, diabetes mellitus type 2, gastroesophageal reflux disease, chronic back pain, SVT, renal cell cancer, peptic ulcer disease, generalized anxiety disorder. Patient is currently residing in [facility]. Patient will not provide details of his incarceration. Patient complains of epigastric pain that started at 5 PM yesterday. He states he tried to walk it off but that did not seem to help. He denies any nausea or vomiting. Patient states he had 3 bowel movements yesterday, 2 in the morning and 1 in the afternoon. He is not passing gas. He denies any blood in the stool. He has history of multiple abdominal surgeries. Patient was brought into [facility] emergency center for evaluation. Patient was found to be afebrile, initial heart rate 121 with repeat 101, blood pressure 119/86, pulse ox 97% on room air. Blood work revealed WBC 18.4, hemoglobin 13.7, platelets 540. INR 1.0. Sodium 134, potassium 4.4, chloride 101, CO2 20, BUN 33 creatinine 2.19. Baseline creatinine 1.5/1.6. Liver function tests were normal. Troponin was normal. Lipase 305. Urinalysis clear with nitrate and leuk on esterase negative. Small amount of blood. Rare bacteria. Chest x-ray normal. CAT scan of the abdomen and pelvis without contrast revealed dilated loops of small bowel in the mid abdomen suggestive partial obstruction. Patient has been admitted and consult in place with Dr. Fernandez. Patient is seen today in the emergency center while waiting for [facility]. 09/14: Patient's diet was advanced yesterday by Dr. Fernandez to clear liquids and patient states as soon as he had eaten he developed significant abdominal pain. Is not passing gas and has not had a bowel movement. Patient has been placed nothing by mouth and Zofran increased to every 6 hours, abdominal x-rays ordered stat which reveals high grade partial or early complete small bowel obstruction. Patient is afebrile, heart rate 95, blood pressure 173/96, pulse ox 90% on room air. Repeat blood work reveals WBC of 21.3, hemoglobin 14.6, platelet count 449. Electrolytes are normal. BUN 25 and creatinine 1.42. Blood sugars are running between 167 and 188. 09/15: Patient had NGT placed yesterday currently to suction. He states he is passing a very small amount of gas, no bowel movements. Abdominal x-ray this morning reveals gradual improving small bowel obstruction with greater degree of air in the left side of the colon and decreasing caliber of dilated small bowel loops. Patient started on IV antibiotics with Zosyn and continued on IV fluids at 125 mL per hour. Patient is afebrile, heart rate 108, blood pressure 127/83, pulse ox 98% on room air. Blood work reveals WBC 14.2, platelet count 476, hemoglobin 13.7. Sodium 141, potassium 4.9, chloride 108, CO2 24, BUN 28 creatinine 1.41. Blood sugars are running between 117 and 169. 09/16: Patient has been afebrile, heart rate 95-113, blood pressure 124/71, pulse ox 95% on room air. WBC 11.8, hemoglobin 11.7, platelet count 412. Blood sugars are running between 102 112. Pro-calcitonin 0.33. Repeat abdominal x-rays this morning reveals overall nonobstructive bowel gas pattern. patient states that he has passing a little bit of gas. NG tube remains in place. Abdomen is soft.plan to continue Zosyn. 09/17 patient examined at bedside. He had a small bowel movement and is passing gas. Abdominal x-ray was negative for obstruction. Vital signs were obtained temp of 98.6 pulse 82 respiratory rate 18 blood pressure 139/76 no recent labs to compare. Surgery recommended removing nasogastric tube today and starting patient on clear liquid diet patient denies any abdominal pain on assessment denies any nausea or vomiting. Denies any dark stools. Denies any chest pain or breathing difficulty. 09/18 patient examined bedside. He is nauseous this morning. Continue full liquid diet per surgery. Patient continues to have bowel movement and flatus. He denies any abdominal pain, chest pain or shortness of breath. Vitals reviewed patient is afebrile pulse 92 respiratory rate 16 blood pressure 155/88. No recent labs. Repeat labs tomorrow 09/19: Patient has been continued on clear liquid diet, IV fluids at 125 mL per hour. Antibiotics were discontinued. Abdominal x-ray reveals increasing number of air fluid levels in the mid left abdominal bowel without any clark small bowel dilatation identified. The transverse colon is patulous measuring up to 6.6 cm though relatively similar mild overall colonic air. Patient has been afebrile, heart rate 91, blood pressure 160/93, pulse ox 90% on room air. Hydrochlorothiazide resumed and lisinopril increased to twice daily dosing. Repeat blood work this morning reveals WBC 9.9, hemoglobin 11.5, platelet count 404. Electrolytes and renal function normal. Blood sugars running between 90 and 119. 8/3: Patient remains afebrile, heart rate 80, blood pressure 118/80, pulse ox 96% on room air. Patient has had retching increasing abdominal distention. He states he is having a little small bowel movements but no gas. Repeat abdominal x-rays reveals interval significant worsening now with clark small bowel obstruction, small bowel loops dilated up to 6.3 cm his been made nothing by mouth, NG tube ordered, patient is scheduled for surgery tomorrow with Dr. Fernandez. 09/21: Patient found to have very good bowel sounds this morning he states he had a bowel movement. NG tube was never placed yesterday and he was continued on clear liquids. Repeat abdominal x-ray ordered. Patient is scheduled for surgical intervention today with Dr. Fernandez. He remains afebrile, heart rate 90, blood pressure 145/90, pulse ox 96% on room air. Repeat blood work reveals WBC 16.2, hemoglobin 12.2, platelet count 437. Sodium 134, potassium 3.9, chloride 100, CO2 21, BUN 10 and creatinine 0.96. Blood sugars are running between 74 and 100. 8/5: Yesterday, patient underwent partial omentectomy and lysis of adhesions, repair of incisional hernia. Patient states his abdomen feels sore. He is not passing gas. 112-144. Blood pressure 131/75, pulse ox 96% on room air. WBC 18.8, hemoglobin 13.2, platelet count 507. Blood sugars are running in the 90s to 116. 8/6: Patient had PICC line placed for TPN and magnesium potassium replaced today. He is using incentive spirometry. Patient has been able to walk in the hallway. He states he is passing very little gas. He remains nothing by mouth. He denies any fever or chills. He does have bowel sounds today. Patient has been afebrile, heart rate in the low 100s, blood pressure 138/86, pulse ox 93% on room air. WBC 12.4, hemoglobin 11.3, platelet count 466. Sodium 134, otherwise electrolytes are normal, creatinine 0.87. Blood sugars running between 114 and 129. 09/24: Patient has been increased to clear liquids. He has been ambulatory in the hallway. He has passed some gas however has not had a bowel movement yet. No NG tube in place. His been utilizing his incentive spirometer. We will continue with TPN until patient has been moved to a regular diet. Bowel sounds are present hypoactive. Patient remained afebrile, heart rate 95, respirations 18, blood pressure 142/88 pulse ox 93% on room air. 09/25: Was advanced to a full liquid diet however he does not much of an appetite and did not eat much of his breakfast. He continues to pass gas however has not had a bowel movement yet. NG tube is not in place. He has been utilizing his incentive progress from her. At this time will continue with TPN until patient has been moved to a regular diet. Bowel sounds remain hypoactive. Patient remains afebrile at this time. No complaints or concerns noted. Patient is not in any acute distress. Dressing is in place clean and dry. 09/26: The patient states that he had a bowel movement this morning and is passing gas. He states he has hiccups. Patient is currently on a pured diet but he doesn't like and then is not eating. He is on TPN which was started for nutri tional support. Diet has been advanced to regular diet and [place] added. Plan to continue antibiotics and TPN and possible discharge in the next 24 hours. He has been afebrile, heart rate 99, blood pressure 163/95, pulse ox 97% on room air. 09/27: Patient states that he has not had a bowel movement today and none yesterday. He is currently on a regular diet as well as on TPN. Patient is afebrile, heart rate 96, blood pressure 149/91, pulse ox 95% on room air. WBC 10.2, hemoglobin 10.9, platelet count 554. Sodium 133, potassium 4.0, chloride 98, CO2 26, BUN 13 and creatinine 0.83. Blood sugars are running between 120 and 146. Calcium 5.1, phosphorus 1.7, magnesium 1.7, total bilirubin 0.2. AST 19, ALT 14, alkaline phosphatase 50. Albumin 3.0. REVIEW OF SYSTEMS Constitutional: No fever, no chills, no night sweats. No weight change. No weakness, fatigue or lethargy. No daytime sleepiness. EENT: No headache. No blurred vision or double vision, no loss of vision. No loss of Hearing, no ringing in the ears, no dizziness. No nasal drainage or congestion. No epistaxis. No sore throat. Lungs: No shortness of breath, cough, no sputum production. No wheezing. Cardiovascular: No chest pain, no lower extremity edema. No palpitations. No paroxysmal nocturnal dyspnea. No orthopnea. No lightheadedness or dizziness. No syncopal episodes. Abdominal: Reports abdominal discomfort, denies nausea, denies vomiting. No diarrhea. No constipation No bloody or tarry stools. Reports flatulence. Reports loss of appetite. Genitourinary: No dysuria, increased frequency, urgency. No urinary retention. Musculoskeletal: No myalgias. No muscle weakness, no gait dysfunction, no frequent falls. No back pain. No neck pain. Integumentary: No wounds, no lesions. No rash or pruritus. No unusual bruising. No change in hair or nails. Neurologic: No aphasia. No facial droop. No change in mentation. No head injury. No headache. No paralysis. No paresthesia. Psychiatric: No depression. No anxiety. No mood swings. Endocrine: Mildly abnormal blood sugars. PHYSICAL EXAMINATION Gen: This is an obese 49-year-old male. Patient is resting in bed and appears to be in no acute distress. HEENT: Head is atraumatic, normocephalic. Pupils equal, round. Sclerae is anicteric. NECK: Supple. No JVD. No lymphadenopathy. No thyromegaly. LUNGS: Clear to auscultation. No wheezes or rhonchi. No intercostal retraction s. HEART: Regular rate and rhythm. No murmur. ABDOMEN: Bowel sounds present. No masses. Generalized abdominal tenderness. Dressing in place clean and dry EXTREMITIES: No pedal edema. No calf tenderness. NEUROLOGICAL: Patient is awake, alert and oriented x3. Cranial nerves 2 through 12 are grossly intact. ASSESSMENT AND PLAN 1. Partial small bowel obstruction s/p partial omentectomy, lysis of adhesions and repair of incisional hernia 09/21. Consult with general surgery appreciated. Advanced to regular diet, continue current pain management and [place] added, Zofran as needed for nausea. 2. Acute kidney injury, resolved. 3. History of renal cell cancer, stable. 4. Hypertension. Resume hydrochlorothiazide 12.5 mg daily, lisinopril 20 mg twice daily, continue Lopressor 100 mg twice daily. Hydralazine IV will be added for blood pressure control. 5. Hyperlipidemia. Hold fenofibrate 160 mg at bedtime. 6. Diabetes mellitus type 2. Hold glipizide 10 mg daily, metformin 1000 mg twice daily, continue NovoLog scale. 7. Gastroesophageal reflux disease. Continue Protonix 40 mg IV push daily. 8. Chronic back pain. 9. History of SVT. Continue Lopressor. 10. Severe protein calorie malnutrition due to extended period of nothing by mouth status. Patient had PICC line placed and started on TPN. 11. DVT prophylaxis. Lovenox subcu. DISCHARGE PLAN Return To Penitentiary in the next 24 hours Impression and plan of care have been directed as dictated by the signing physician. Luly Coffey nurse practitioner acting as scribe for signing physician. Objective - Vital Signs Vital signs: Vital Signs Temp 98.1 F 09/27/20 03:54 Pulse 96 09/27/20 03:54 Resp 18 09/27/20 03:54 BP 149/91 09/27/20 03:54 Pulse Ox 95 09/27/20 03:54 Intake & Output 09/26/20 09/27/20 09/27/20 18:59 06:59 18:59 Intake Total 2733 Balance 2733 Weight 127.006 kg Intake: Intake, IV Titration 2133 Amount Mvi, Adult No.4 with Vit 1033 K 10 ml Trace (Conc-1Ml/ Dose) 1 ml Parenteral Electrolytes 20 ml Magnesium Sulfate gm 1 gm In Amino Acid 5%-D15w 1, 000 ml @ 85 mls/hr IV .BY DURATION [facility] Rx#: [id number] Sodium Chloride 0.9% 1, 1000 000 ml @ 125 mls/hr IV . Q8H [facility] Rx#:[id number] ceFAZolin 1,000 mg In 100 Sodium Chloride 0.9% 50 ml @ 100 mls/hr IVPB Q8H [facility] Rx#:[id number] Oral 600 Other: Voiding Method Toilet Urinal # Voids 4 5 - Labs CBC & Chem 7: 09/27/20 05:23 09/27/20 05:23 Labs: Abnormal Lab Results - Last 24 Hours (Table) 09/26/20 09/26/20 09/26/20 Range/Units 11:59 17:46 23:28 RBC (4.30-5.90) m/uL Hgb (13.0-17.5) gm/dL Hct (39.0-53.0) % Plt Count (150-450) k/uL Sodium (137-145) mmol/L Glucose (74-99) mg/dL POC Glucose (mg/dL) 143 H 120 H 138 H (75-99) mg/dL Phosphorus (2.5-4.5) mg/dL Total Protein (6.3-8.2) g/dL Albumin (3.5-5.0) g/dL 09/27/20 09/27/20 09/27/20 Range/Units 05:23 05:23 06:31 RBC 3.71 L (4.30-5.90) m/uL Hgb 10.9 L (13.0-17.5) gm/dL Hct 33.0 L (39.0-53.0) % Plt Count 554 H (150-450) k/uL Sodium 133 L (137-145) mmol/L Glucose 132 H (74-99) mg/dL POC Glucose (mg/dL) 146 H (75-99) mg/dL Phosphorus 5.1 H (2.5-4.5) mg/dL Total Protein 5.2 L (6.3-8.2) g/dL Albumin 3.0 L (3.5-5.0) g/dL
--- NOTE | 2020-09-27 13:50 | P.PN ---
Subjective Progress Note Date: 09/27/20 CHIEF COMPLAINT: Abdominal pain HISTORY OF PRESENT ILLNESS: Patient is status post partial omentectomy, lysis of extensive adhesions and repair of incisional hernia. Patient does report abdominal pain at his incision site. Pain is controlled. He reports his been 2 days since last bowel movement. He is having flatus. He reports a decreased appetite. But he was able to eat a hamburger yesterday afternoon. He is eating lunch currently. He does have TPN and that will be weaned off before he is di scharged later today. He has been up and ambulating. His pain is controlled. No nausea or vomiting reported. He is afebrile. WBC is normal at 10.2 hemoglobin 10.9. PHYSICAL EXAM: VITAL SIGNS: Reviewed. GENERAL: Well-developed in no acute distress. HEENT: No sclera icterus. Extraocular movements grossly intact. Moist buccal mucosa. Head is atraumatic, normocephalic. ABDOMEN: Soft. Nondistended incision site clean dry and intact NEUROLOGIC: Alert and oriented. Cranial nerves II through XII grossly intact. ASSESSMENT: 1. Small bowel obstruction status post partial omentectomy, lysis of extensive adhesions and repair of incisional hernia. Postop day #6 PLAN: -Patient is stable from surgical standpoint for discharge -Continue regular diet -Wean patient off of TPN Physician Ophthalmic Medical Assistant note has been reviewed by physician. Signing provider agrees with the documented findings, assessment, and plan of care. Objective - Vital Signs Vital signs: Vital Signs Temp 98.4 F 09/27/20 12:42 Pulse 87 09/27/20 12:42 Resp 17 09/27/20 12:42 BP 148/93 09/27/20 12:42 Pulse Ox 97 09/27/20 12:42 Intake & Output 09/26/20 09/27/20 09/27/20 18:59 06:59 18:59 Intake Total 2733 Balance 2733 Weight 127.006 kg Intake: Intake, IV Titration 2133 Amount Mvi, Adult No.4 with Vit 1033 K 10 ml Trace (Conc-1Ml/ Dose) 1 ml Parenteral Electrolytes 20 ml Magnesium Sulfate gm 1 gm In Amino Acid 5%-D15w 1, 000 ml @ 85 mls/hr IV .BY DURATION [facility] Rx#: [id number] Sodium Chloride 0.9% 1, 1000 000 ml @ 125 mls/hr IV . Q8H [facility] Rx#:[id number] ceFAZolin 1,000 mg In 100 Sodium Chloride 0.9% 50 ml @ 100 mls/hr IVPB Q8H [facility] Rx#:[id number] Oral 600 Other: Voiding Method Toilet Urinal # Voids 4 5 - Labs CBC & Chem 7: 09/27/20 05:23 09/27/20 05:23 Labs: Abnormal Lab Results - Last 24 Hours (Table) 09/26/20 09/26/20 09/27/20 Range/Units 17:46 23:28 05:23 RBC 3.71 L (4.30-5.90) m/uL Hgb 10.9 L (13.0-17.5) gm/dL Hct 33.0 L (39.0-53.0) % Plt Count 554 H (150-450) k/uL Sodium (137-145) mmol/L Glucose (74-99) mg/dL POC Glucose (mg/dL) 120 H 138 H (75-99) mg/dL Phosphorus (2.5-4.5) mg/dL Total Protein (6.3-8.2) g/dL Albumin (3.5-5.0) g/dL 09/27/20 09/27/20 09/27/20 Range/Units 05:23 06:31 12:07 RBC (4.30-5.90) m/uL Hgb (13.0-17.5) gm/dL Hct (39.0-53.0) % Plt Count (150-450) k/uL Sodium 133 L (137-145) mmol/L Glucose 132 H (74-99) mg/dL POC Glucose (mg/dL) 146 H 133 H (75-99) mg/dL Phosphorus 5.1 H (2.5-4.5) mg/dL Total Protein 5.2 L (6.3-8.2) g/dL Albumin 3.0 L (3.5-5.0) g/dL
--- NOTE | 2020-09-27 14:02 | P.DS ---
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 Patient is currently residing in [facility]. Patient will not provide details of his incarceration. Patient complains of epigastric pain that started at 5 PM yesterday. He states he tried to walk it off but that did not seem to help. He denies any nausea or vomiting. Patient states he had 3 bowel movements yesterday, 2 in the morning and 1 in the afternoon. He is not passing gas. He denies any blood in the stool. He has history of multiple abdominal surgeries. Patient was brought into [facility] emergency center for evaluation. Patient was found to be afebrile, initial heart rate 121 with repeat 101, blood pressure 119/86, pulse ox 97% on room air. Blood work revealed WBC 18.4, hemoglobin 13.7, platelets 540. INR 1.0. Sodium 134, potassium 4.4, chloride 101, CO2 20, BUN 33 creatinine 2.19. Baseline creatinine 1.5/1.6. Liver function tests were normal. Troponin was normal. Lipase 305. Urinalysis clear with nitrate and leuk on esterase negative. Small amount of blood. Rare bacteria. Chest x-ray normal. CAT scan of the abdomen and pelvis without contrast revealed dilated loops of small bowel in the mid abdomen suggestive partial obstruction. Patient has been admitted and consult in place with Dr. Fernandez. Patient is seen today in the emergency center while waiting for [facility] bed. 09/14: Patient's diet was advanced yesterday by Dr. Fernandez to clear liquids and patient states as soon as he had eaten he developed significant abdominal pain. Is not passing gas and has not had a bowel movement. Patient has been placed nothing by mouth and Zofran increased to every 6 hours, abdominal x-rays ordered stat which reveals high grade partial or early complete small bowel obstruction. Patient is afebrile, heart rate 95, blood pressure 173/96, pulse ox 90% on room air. Repeat blood work reveals WBC of 21.3, hemoglobin 14.6, platelet count 449. Electrolytes are normal. BUN 25 and creatinine 1.42. Blood sugars are running between 167 and 188. 09/15: Patient had NGT placed yesterday currently to suction. He states he is passing a very small amount of gas, no bowel movements. Abdominal x-ray this morning reveals gradual improving small bowel obstruction with greater degree of air in the left side of the colon and decreasing caliber of dilated small bowel loops. Patient started on IV antibiotics with Zosyn and continued on IV fluids at 125 mL per hour. Patient is afebrile, heart rate 108, blood pressure 127/83, pulse ox 98% on room air. Blood work reveals WBC 14.2, platelet count 476, hemoglobin 13.7. Sodium 141, potassium 4.9, chloride 108, CO2 24, BUN 28 creatinine 1.41. Blood sugars are running between 117 and 169. 09/16: Patient has been afebrile, heart rate 95-113, blood pressure 124/71, pulse ox 95% on room air. WBC 11.8, hemoglobin 11.7, platelet count 412. Blood sugars are running between 102 112. Pro-calcitonin 0.33. Repeat abdominal x-rays this morning reveals overall nonobstructive bowel gas pattern. patient states that he has passing a little bit of gas. NG tube remains in place. Abdomen is soft.plan to continue Zosyn. 09/17 patient examined at bedside. He had a small bowel movement and is passing gas. Abdominal x-ray was negative for obstruction. Vital signs were obtained temp of 98.6 pulse 82 respiratory rate 18 blood pressure 139/76 no recent labs to compare. Surgery recommended removing nasogastric tube today and starting patient on clear liquid diet patient denies any abdominal pain on assessment denies any nausea or vomiting. Denies any dark stools. Denies any chest pain or breathing difficulty. 09/18 patient examined bedside. He is nauseous this morning. Continue full liquid diet per surgery. Patient continues to have bowel movement and flatus. He denies any abdominal pain, chest pain or shortness of breath. Vitals reviewed patient is afebrile pulse 92 respiratory rate 16 blood pressure 155/88. No recent labs. Repeat labs tomorrow 09/19: Patient has been continued on clear liquid diet, IV fluids at 125 mL per hour. Antibiotics were discontinued. Abdominal x-ray reveals increasing number of air fluid levels in the mid left abdominal bowel without any clark small bowel dilatation identified. The transverse colon is patulous measuring up to 6.6 cm though relatively similar mild overall colonic air. Patient has been afebrile, heart rate 91, blood pressure 160/93, pulse ox 90% on room air. Hydrochlorothiazide resumed and lisinopril increased to twice daily dosing. Repeat blood work this morning reveals WBC 9.9, hemoglobin 11.5, platelet count 404. Electrolytes and renal function normal. Blood sugars running between 90 and 119. 09/20: Patient remains afebrile, heart rate 80, blood pressure 118/80, pulse ox 96% on room air. Patient has had retching increasing abdominal distention. He states he is having a little small bowel movements but no gas. Repeat abdominal x-rays reveals interval significant worsening now with clark small bowel obstruction, small bowel loops dilated up to 6.3 cm his been made nothing by mouth, NG tube ordered, patient is scheduled for surgery tomorrow with Dr. Fernandez. 09/21: Patient found to have very good bowel sounds this morning he states he had a bowel movement. NG tube was never placed yesterday and he was continued on clear liquids. Repeat abdominal x-ray ordered. Patient is scheduled for surgical intervention today with Dr. Fernandez. He remains afebrile, heart rate 90, blood pressure 145/90, pulse ox 96% on room air. Repeat blood work reveals WBC 16.2, hemoglobin 12.2, platelet count 437. Sodium 134, potassium 3.9, chloride 100, CO2 21, BUN 10 and creatinine 0.96. Blood sugars are running between 74 and 100. 09/22: Yesterday, patient underwent partial omentectomy and lysis of adhesions, repair of incisional hernia. Patient states his abdomen feels sore. He is not passing gas. 112-144. Blood pressure 131/75, pulse ox 96% on room air. WBC 18.8, hemoglobin 13.2, platelet count 507. Blood sugars are running in the 90s to 116. 09/23: Patient had PICC line placed for TPN and magnesium potassium replaced today. He is using incentive spirometry. Patient has been able to walk in the hallway. He states he is passing very little gas. He remains nothing by mouth. He denies any fever or chills. He does have bowel sounds today. Patient has been afebrile, heart rate in the low 100s, blood pressure 138/86, pulse ox 93% on room air. WBC 12.4, hemoglobin 11.3, platelet count 466. Sodium 134, otherwise electrolytes are normal, creatinine 0.87. Blood sugars running between 114 and 129. 09/24: Patient has been increased to clear liquids. He has been ambulatory in the hallway. He has passed some gas however has not had a bowel movement yet. No NG tube in place. His been utilizing his incentive spirometer. We will continue with TPN until patient has been moved to a regular diet. Bowel sounds are present hypoactive. Patient remained afebrile, heart rate 95, respirations 18, blood pressure 142/88 pulse ox 93% on room air. 09/25: Was advanced to a full liquid diet however he does not much of an appetite and did not eat much of his breakfast. He continues to pass gas however has not had a bowel movement yet. NG tube is not in place. He has been utilizing his incentive progress from her. At this time will continue with TPN until patient has been moved to a regular diet. Bowel sounds remain hypoactive. Patient remains afebrile at this time. No complaints or concerns noted. Patient is not in any acute distress. Dressing is in place clean and dry. 09/26: The patient states that he had a bowel movement this morning and is passing gas. He states he has hiccups. Patient is currently on a pured diet but he doesn't like and then is not eating. He is on TPN which was started for nutritional support. Diet has been advanced to regular diet and Buffalo added. Plan to continue antibiotics and TPN and possible discharge in the next 24 hours. He has been afebrile, heart rate 99, blood pressure 163/95, pulse ox 97% on room air. 09/27: Patient states that he has not had a bowel movement today and none yesterday. He is passing flatus He is currently on a regular diet as well as on TPN. Patient is afebrile, heart rate 96, blood pressure 149/91, pulse ox 95% on room air. WBC 10.2, hemoglobin 10.9, platelet count 554. Sodium 133, potassium 4.0, chloride 98, CO2 26, BUN 13 and creatinine 0.83. Blood sugars are running between 120 and 146. Calcium 5.1, phosphorus 1.7, magnesium 1.7, total bilirubin 0.2. AST 19, ALT 14, alkaline phosphatase 50. Albumin 3.0. He has been cleared for discharge by surgery and patient will be discharged back to detention today in stable condition. ASSESSMENT AND PLAN 1. Partial small bowel obstruction s/p partial omentectomy, lysis of adhesions and repair of incisional hernia 09/21. 2. Acute kidney injury, resolved. 3. History of renal cell cancer, stable. 4. Hypertension. 5. Hyperlipidemia. 6. Diabetes mellitus type 2. 7. Gastroesophageal reflux disease. 8. Chronic back pain. 9. History of SVT. 10. Severe protein calorie malnutrition due to extended period of nothing by mouth status. DISCHARGE PLAN Return To Alf Impression and plan of care have been directed as dictated by the signing physician. Luly Coffey nurse practitioner acting as scribe for signing lópez lan. Patient Condition at Discharge: Good Plan - Discharge Summary New Discharge Prescriptions: New HYDROcodone/APAP 5-325MG [Buffalo 5-325] 1 tab PO Q6HR PRN 3 Days #12 tab PRN Reason: Pain lisinopriL [Zestril] 20 mg PO BID #60 tab Continue hydroCHLOROthiazide [Hydrodiuril] 12.5 mg PO DAILY Fenofibrate 160 mg PO HS Pantoprazole Sodium [Protonix] 40 mg PO DAILY Albuterol Sulfate [Proair Hfa] 1 - 2 puff INHALATION RT-Q6H PRN PRN Reason: Shortness Of Breath Magnesium Oxide [Mag-Ox] 400 mg PO DAILY glipiZIDE [Glucotrol] 10 mg PO DAILY metFORMIN HCL [Glucophage] 1,000 mg PO BID Ciclesonide [Alvesco] 1 puff INHALATION RT-BID Metoprolol Tartrate [Lopressor] 100 mg PO BID Discontinued lisinopriL [Zestril] 10 mg PO HS Discharge Medication List hydroCHLOROthiazide [Hydrodiuril] 12.5 mg PO DAILY 10/10/17 [History] Fenofibrate 160 mg PO HS 09/18/17 [History] Pantoprazole Sodium [Protonix] 40 mg PO DAILY 10/12/19 [History] Albuterol Sulfate [Proair Hfa] 1 - 2 puff INHALATION RT-Q6H PRN 08/02/20 [History] metFORMIN HCL [Glucophage] 1,000 mg PO BID 08/02/20 [History] Magnesium Oxide [Mag-Ox] 400 mg PO DAILY 08/16/20 [History] Ciclesonide [Alvesco] 1 puff INHALATION RT-BID 09/12/20 [History] Metoprolol Tartrate [Lopressor] 100 mg PO BID 09/12/20 [History] glipiZIDE [Glucotrol] 10 mg PO DAILY 09/12/20 [History] HYDROcodone/APAP 5-325MG [Buffalo 5-325] 1 tab PO Q6HR PRN 3 Days #12 tab 09/27/20 [Rx] lisinopriL [Zestril] 20 mg PO BID #60 tab 09/27/20 [Rx] Follow up Appointment(s)/Referral(s): [facility] [Primary Care Provider] - 1 Week Justin Fernandez MD [STAFF PHYSICIAN] - 1 Week Activity/Diet/Wound Care/Special Instructions: No driving while taking Buffalo No lifting over 10 pounds You may shower. No soaking or tub baths for 2 weeks Very light activity until you are reevaluated at your follow up appointment with your surgeon Discharge Disposition: DC/TRANSFER COURT/LAW
[2020-09-27 18:35] LABS: Glucose,Whole Blood 103 mg/dL (75-99)
== END 2020-09-27 18:45 | DRG 335 ==
LOC: EC 20:21 → 5NMEDONC 23:57 → EEVIPCON 23:57 → 5NMEDONC 09-13 17:54
PROVIDERS: ADMIT Internal Medicine Geriatric Medicine; ATTEND Internal Medicine Geriatric Medicine
PROC: 0D9670Z Drainage of Stomach with Drainage Device, Via Natural or Artificial Opening (ICD-10-PCS; 2020-09-14)
PROC: 0WQF0ZZ Repair Abdominal Wall, Open Approach (ICD-10-PCS; 2020-09-21)
PROC: 0DBU0ZZ Excision of Omentum, Open Approach (ICD-10-PCS; 2020-09-21)
PROC: 0DN80ZZ Release Small Intestine, Open Approach (ICD-10-PCS; principal; 2020-09-21 12:05)
PROC: 3E0436Z Introduction of Nutritional Substance into Central Vein, Percutaneous Approach (ICD-10-PCS; 2020-09-23)
PROC: 02HV33Z Insertion of Infusion Device into Superior Vena Cava, Percutaneous Approach (ICD-10-PCS; 2020-09-23)
PROC: B548ZZA Ultrasonography of Superior Vena Cava, Guidance (ICD-10-PCS; 2020-09-23)
DX: K56.52 Intestinal adhesions [bands] with complete obstruction (principal); E43 Unspecified severe protein-calorie malnutrition; N17.9 Acute kidney failure, unspecified; I47.1 Supraventricular tachycardia; Z68.41 Body mass index [BMI] 40.0-44.9, adult; I48.91 Unspecified atrial fibrillation; E11.9 Type 2 diabetes mellitus without complications; Z90.5 Acquired absence of kidney; Z85.528 Personal history of other malignant neoplasm of kidney; Z90.49 Acquired absence of other specified parts of digestive tract; Z79.84 Long term (current) use of oral hypoglycemic drugs; J44.9 Chronic obstructive pulmonary disease, unspecified; Z87.11 Personal history of peptic ulcer disease; K21.9 Gastro-esophageal reflux disease without esophagitis; E78.5 Hyperlipidemia, unspecified; F41.1 Generalized anxiety disorder; G89.29 Other chronic pain; F60.3 Borderline personality disorder; F17.210 Nicotine dependence, cigarettes, uncomplicated; Z80.1 Family history of malignant neoplasm of trachea, bronchus and lung; F31.9 Bipolar disorder, unspecified; I10 Essential (primary) hypertension; F17.200 Nicotine dependence, unspecified, uncomplicated; K43.2 Incisional hernia without obstruction or gangrene; K56.690 Other partial intestinal obstruction; F42.9 Obsessive-compulsive disorder, unspecified; Z79.899 Other long term (current) drug therapy; E66.01 Morbid (severe) obesity due to excess calories; M54.9 Dorsalgia, unspecified
CPT/HCPCS: 36410; 36415; 36573; 71046; 74019; 74176; 76937; 80048; 80053; 81001; 82150; 82330; 83605; 83690; 83735; 84100; 84145; 84478; 84484; 85025; 85610; 85730; 86850; 86900; 86901; 88305; 93005; 94640; 96374; 96375; 96376; 99285

== ENCOUNTER 2020-09-28 22:37 | Inpatient (IN) | payer OTHER ==
[2020-09-28] MEDS ORDERED: SODIUM CHLORIDE 0.9% 1,000 ML IV STA (22:44)
[2020-09-28] MEDS ORDERED: SODIUM CHLORIDE 0.9% 500 ML 500 ML IV STA (22:44)
[2020-09-28] MEDS ORDERED: ONDANSETRON 4 MG/2 ML VIAL IVP STA (23:02)
[2020-09-28] MEDS ORDERED: MORPHINE SULFATE 4 MG/ML SYRINGE IVP STA (23:02)
[2020-09-28] MEDS ORDERED: PANTOPRAZOLE 40 MG/10 ML VIAL IVP STA (23:02)
--- NOTE | 2020-09-28 23:03 | ED ---
Recheck HPI - General Chief Complaint: Abdominal Pain Stated Complaint: Post-op weakness Time Seen by Provider: 09/28/20 22:43 Source: patient, RN notes reviewed, old records reviewed Mode of arrival: ambulatory Limitations: no limitations - History of Present Illness Initial Comments: This is a 49-year-old male to the ER for evaluation patient presents today for evaluation regards to abdominal pain. Postoperative abdominal pain after bowel resection. Patient is surgery about 6-7 days ago. Some chills and diaphoresis maybe some fever. Patient is discharged from hospital yesterday. No other new complaints no shortness of breath or chest pain MD Complaint: wound re-check (Anterior belly pain) -: hour(s) Returns Today for: staple/Stitch removal, wound recheck, persistent/worsening pain related to initial visit Symptoms Since Prior Visit: worsening pain, fever Context: called for abnormal lab result Associated Symptoms: none Treatments Prior to Arrival: other medications - Related Data Home Medications Medication Instructions Recorded Confirmed hydroCHLOROthiazide [Hydrodiuril] 12.5 mg PO DAILY 11/27/16 09/28/20 Fenofibrate 160 mg PO HS 09/18/17 09/28/20 Pantoprazole Sodium [Protonix] 40 mg PO DAILY 10/12/19 09/28/20 Albuterol Sulfate [Proair Hfa] 1 - 2 puff INHALATION RT-Q6H PRN 08/02/20 09/28/20 metFORMIN HCL [Glucophage] 1,000 mg PO BID 08/02/20 09/28/20 Magnesium Oxide [Mag-Ox] 400 mg PO DAILY 08/16/20 09/28/20 Ciclesonide [Alvesco] 1 puff INHALATION RT-BID 09/12/20 09/28/20 Metoprolol Tartrate [Lopressor] 100 mg PO BID 09/12/20 09/28/20 glipiZIDE [Glucotrol] 10 mg PO DAILY 09/12/20 09/28/20 Acetaminophen Tab [Tylenol Tab] 1,000 mg PO TID PRN 09/28/20 09/28/20 Ibuprofen [Motrin Ib] 800 mg PO BID PRN 09/28/20 09/28/20 Sulfamethox-Tmp 800-160Mg [Bactrim 1 tab PO Q12HR 09/28/20 09/28/20 DS 800-160 mg] lisinopriL [Zestril] 10 mg PO DAILY 09/28/20 09/28/20 Allergies Allergy/AdvReac Type Severity Reaction Status Date / Time Iodinated Contrast Media AdvReac KIDNEY Verified 09/28/20 23:50 [Iodinated Contrast- Oral and IV Dye] Review of Systems ROS Statement: Those systems with pertinent positive or pertinent negative responses have been documented in the HPI. ROS Other: All systems not noted in ROS Statement are negative. Past Medical History Past Medical History: Atrial Fibrillation, Cancer, COPD, Diabetes Mellitus, GI Bleed, Hypertension Additional Past Medical History / Comment(s): RENAL CELL CA, DUODENAL ULCER, HIATAL HERNIA, BORDERLINE PERSONALITY DISORDER, PANIC EPISODES, ANXIETY, OCD, chronic back pain, chronic bronchitis History of Any Multi-Drug Resistant Organisms: None Reported Past Surgical History: Cholecystectomy, Hernia Repair Additional Past Surgical History / Comment(s): duodenal ulcer surgery, left kidney removal, BOWEL OBSTRUCTION SURGERY 10/08 Past Anesthesia/Blood Transfusion Reactions: No Reported Reaction Past Psychological History: Anxiety, Bipolar Smoking Status: Current every day smoker Past Alcohol Use History: None Reported Past Drug Use History: None Reported - Past Family History Father Family Medical History: Cancer Additional Family Medical History / Comment(s): lung cancer General Exam - General Exam Comments Initial Comments: Patient is clean and dry although it is a little inflamed especially on the staple area General appearance: alert, in no apparent distress Head exam: Present: atraumatic, normocephalic, normal inspection Eye exam: Present: normal appearance, PERRL, EOMI. Absent: scleral icterus, conjunctival injection, periorbital swelling ENT exam: Present: normal exam, mucous membranes moist Neck exam: Present: normal inspection. Absent: tenderness, meningismus, lymphadenopathy Respiratory exam: Present: normal lung sounds bilaterally. Absent: respiratory distress, wheezes, rales, rhonchi, stridor Cardiovascular Exam: Present: normal rhythm, tachycardia, normal heart sounds. Absent: systolic murmur, diastolic murmur, rubs, gallop, clicks GI/Abdominal exam: Present: soft, normal bowel sounds. Absent: distended, tenderness, guarding, rebound, rigid Extremities exam: Present: normal inspection, full ROM, normal capillary refill. Absent: tenderness, pedal edema, joint swelling, calf tenderness Back exam: Present: normal inspection Neurological exam: Present: alert, oriented X3, CN II-XII intact Psychiatric exam: Present: normal affect, normal mood Skin exam: Present: warm, dry, intact, normal color. Absent: rash Course Vital Signs 09/28/20 09/29/20 22:44 01:49 Temperature 98.4 F 98.5 F Pulse Rate 107 H 100 Respiratory 18 18 Rate Blood Pressure 142/89 144/98 O2 Sat by Pulse 98 98 Oximetry - Reevaluation(s) Reevaluation #1: 09/28/20 23:44 Medical record is reviewed Reevaluation #2: 09/28/20 23:44 Patient prior surgical history is also been reviewed Reevaluation #3: Patient symptoms are improved here in the emergency department Patient informed of results and questions answered Patient is in no acute distress Medical Decision Making - Medical Decision Making 49 male of recent bowel obstruction be admitted for recurrent bowel obstruction, surgical evaluation and treatment - Lab Data Result diagrams: 10/04/20 07:05 10/07/20 06:07 Lab Results 09/28/20 09/28/20 09/28/20 Range/Units 23:26 23:26 23:26 WBC 16.9 H (3.8-10.6) k/uL RBC 4.56 (4.30-5.90) m/uL Hgb 12.8 L (13.0-17.5) gm/dL Hct 40.6 (39.0-53.0) % MCV 89.2 (80.0-100.0) fL MCH 28.2 (25.0-35.0) pg MCHC 31.6 (31.0-37.0) g/dL RDW 13.7 (11.5-15.5) % Plt Count 741 H (150-450) k/uL MPV 7.3 Neutrophils % 82 % Lymphocytes % 10 % Monocytes % 5 % Eosinophils % 1 % Basophils % 0 % Neutrophils # 13.9 H (1.3-7.7) k/uL Lymphocytes # 1.7 (1.0-4.8) k/uL Monocytes # 0.9 (0-1.0) k/uL Eosinophils # 0.1 (0-0.7) k/uL Basophils # 0.1 (0-0.2) k/uL PT 9.8 (9.0-12.0) sec INR 0.9 (<1.2) APTT 22.6 (22.0-30.0) sec Sodium 133 L (137-145) mmol/L Potassium 4.4 (3.5-5.1) mmol/L Chloride 96 L (98-107) mmol/L Carbon Dioxide 27 (22-30) mmol/L Anion Gap 10 mmol/L BUN 15 (9-20) mg/dL Creatinine 1.18 (0.66-1.25) mg/dL Est GFR (CKD-EPI)AfAm 83 (>60 ml/min/1.73 sqM) Est GFR (CKD-EPI)NonAf 72 (>60 ml/min/1.73 sqM) Glucose 94 (74-99) mg/dL Plasma Lactic Acid Jonathan (0.7-2.0) mmol/L Calcium 9.9 (8.4-10.2) mg/dL Phosphorus 5.4 H (2.5-4.5) mg/dL Magnesium 1.6 (1.6-2.3) mg/dL Total Bilirubin 0.3 (0.2-1.3) mg/dL AST 27 (17-59) U/L ALT 17 (4-49) U/L Alkaline Phosphatase 60 (38-126) U/L Creatine Kinase 43 L (55-170) U/L Troponin I (0.000-0.034) ng/mL NT-Pro-B Natriuret Pep pg/mL Total Protein 5.7 L (6.3-8.2) g/dL Albumin 3.3 L (3.5-5.0) g/dL 09/28/20 09/28/20 09/28/20 Range/Units 23:26 23:26 23:26 WBC (3.8-10.6) k/uL RBC (4.30-5.90) m/uL Hgb (13.0-17.5) gm/dL Hct (39.0-53.0) % MCV (80.0-100.0) fL MCH (25.0-35.0) pg MCHC (31.0-37.0) g/dL RDW (11.5-15.5) % Plt Count (150-450) k/uL MPV Neutrophils % % Lymphocytes % % Monocytes % % Eosinophils % % Basophils % % Neutrophils # (1.3-7.7) k/uL Lymphocytes # (1.0-4.8) k/uL Monocytes # (0-1.0) k/uL Eosinophils # (0-0.7) k/uL Basophils # (0-0.2) k/uL PT (9.0-12.0) sec INR (<1.2) APTT (22.0-30.0) sec Sodium (137-145) mmol/L Potassium (3.5-5.1) mmol/L Chloride (98-107) mmol/L Carbon Dioxide (22-30) mmol/L Anion Gap mmol/L BUN (9-20) mg/dL Creatinine (0.66-1.25) mg/dL Est GFR (CKD-EPI)AfAm (>60 ml/min/1.73 sqM) Est GFR (CKD-EPI)NonAf (>60 ml/min/1.73 sqM) Glucose (74-99) mg/dL Plasma Lactic Acid Jonathan 0.9 (0.7-2.0) mmol/L Calcium (8.4-10.2) mg/dL Phosphorus (2.5-4.5) mg/dL Magnesium (1.6-2.3) mg/dL Total Bilirubin (0.2-1.3) mg/dL AST (17-59) U/L ALT (4-49) U/L Alkaline Phosphatase (38-126) U/L Creatine Kinase (55-170) U/L Troponin I 0.020 (0.000-0.034) ng/mL NT-Pro-B Natriuret Pep 324 pg/mL Total Protein (6.3-8.2) g/dL Albumin (3.5-5.0) g/dL - EKG Data -: EKG Interpreted by Me (EKG shows sinus tachycardia 103 MI 160 QRS 76 QTC 442) - Radiology Data Radiology results: report reviewed (CT abdomen and pelvis does show recurrent small bowel obstruction), image reviewed Disposition Clinical Impression: Morbid obesity due to excess calories, Pancreatitis, Abdominal pain, Small bowel obstruction Disposition: ADMITTED IP TO THIS [facility] Condition: Fair
[2020-09-28 23:34] LABS: Basophils # (A) 0.1 k/uL (0-0.2); Basophils % (A) 0 %; Eosinophils # (A) 0.1 k/uL (0-0.7); Eosinophils % (A) 1 %; HCT 40.6 % (39.0-53.0); HGB 12.8 gm/dL (13.0-17.5); Lymphocytes # (A) 1.7 k/uL (1.0-4.8); Lymphocytes % (A) 10 %; MCH 28.2 pg (25.0-35.0); MCHC 31.6 g/dL (31.0-37.0); MCV 89.2 fL (80.0-100.0); Mean Platelet Volume 7.3; Monocytes # (A) 0.9 k/uL (0-1.0); Monocytes % (A) 5 %; Neutrophils # (A) 13.9 k/uL (1.3-7.7); Neutrophils % (A) 82 %; Platelet Count 741 k/uL (150-450); RBC 4.56 m/uL (4.30-5.90); RDW 13.7 % (11.5-15.5); WBC 16.9 k/uL (3.8-10.6)
[2020-09-28 23:44] LABS: Albumin 3.3 g/dL (3.5-5.0); Calcium 9.9 mg/dL (8.4-10.2); Magnesium 1.6 mg/dL (1.6-2.3); Phosphorus 5.4 mg/dL (2.5-4.5); Potassium 4.4 mmol/L (3.5-5.1); Total Bilirubin 0.3 mg/dL (0.2-1.3); Total Protein 5.7 g/dL (6.3-8.2)
[2020-09-28 23:48] LABS: INR 0.9 (<1.2); Partial Thromboplastin Time 22.6 sec (22.0-30.0); Prothrombin Time 9.8 sec (9.0-12.0)
[2020-09-29] MEDS ORDERED: methylPREDNISolone SOD SUCCI 125 MG/2 ML VIAL IV STA (00:07)
[2020-09-29] MEDS ORDERED: FAMOTIDINE 20 MG/2 ML VIAL IV STA (00:07)
[2020-09-29] MEDS ORDERED: diphenhydrAMINE 50 MG/ML 1 ML VIAL IVP STA (00:07)
--- NOTE | 2020-09-29 00:37 | CT ---
EXAMINATION TYPE: CT abdomen pelvis w con DATE OF EXAM: 09/29/2020 COMPARISON: 08/23/2020 HISTORY: weakness and pain 6 days after bowel obstruction surgry. history of left kidney removal, cho lecystectomy, hernia sx and ulcer sx also CT DLP: 2318.4 mGycm Automated exposure control for dose reduction was used. CONTRAST: Performed with IV Contrast, patient injected with 80ml mL of Isovue 300. Lung bases are clear. There is no pleural effusion. Heart size is normal. There is no pericardial eff usion. Stomach is dilated with fluid. There are clips at the gastroesophageal junction. There are cli ps from cholecystectomy. Liver shows no focal defect. The bile ducts are not dilated. Spleen is intac t. There is no evidence of pancreatic mass. There is no adrenal mass. There are clips from left nephrectomy. Right kidney shows normal contrast o pacification. There is no hydronephrosis. Right ureter is not dilated. There is no retroperitoneal ad enopathy. Bladder distends smoothly. There is no inguinal hernia. There is small amount of free fluid in the pelvis. There are multiple dilated fluid-filled small bowel loops in the upper abdomen. Jejunum is dilated up to 6 cm. There are some pericecal lymph nodes. Appendix appears to be inferior and appears normal. T erminal ileum is not dilated. There appears to be some tethering of loops of bowel in the mid abdomen . This could be the transition site. There is no free air. The lumbar vertebra have normal alignment. There is no compression fracture. Po sterior elements are intact. The bony pelvis is intact. Hip joints are intact. IMPRESSION: Markedly dilated small bowel and dilated stomach suggestive of mechanical mid small bowel obstruction . This could be due to some adhesions in the mid abdomen. Obstruction is new compared to old exam. Th ere is minimal free fluid in the pelvis probably related to intestinal obstruction.
[2020-09-29] MEDS ORDERED: HYDROmorphone 0.5 MG/0.5 ML SYRINGE IVP STA (00:43)
[2020-09-29] MEDS ORDERED: NALOXONE 0.4 MG/ML 1 ML VIAL IV PRN (00:58)
[2020-09-29] MEDS ORDERED: MORPHINE SULFATE 4 MG/ML SYRINGE IV PRN (00:58)
[2020-09-29] MEDS: HYDROmorphone 1 MG/ML 1 ML SYRINGE IVP PRN ×9 (01:45→23:30)
[2020-09-29 02:57] LABS: Appearance,Urine Clear (Clear); Bacteria,Urine Rare /hpf; Bilirubin,Urine Negative (Negative); Blood,Urine Negative (Negative); Color,Urine Yellow; Glucose,Urine (UA) Negative (Negative); Ketones,Urine Negative (Negative); Leukocyte Esterase,Urine Negative (Negative); Mucus,Urine Rare /hpf; Nitrite,Urine Negative (Negative); PH, Urine 7.5 (5.0-8.0); Protein,Urine 3+ (Negative); RBC,Urine 6 /hpf (0-5); Squamous Epithelial Cell,Urine <1 /hpf (0-4); WBC,Urine 8 /hpf (0-5)
[2020-09-29] MEDS: SODIUM CHLORIDE 0.9% 1,000 ML IV SCH ×3 (03:47→14:57)
[2020-09-29 07:12] LABS: Glucose,Whole Blood 81 mg/dL (75-99)
[2020-09-29] MEDS: PANTOPRAZOLE 40 MG/10 ML VIAL IV SCH (07:42)
[2020-09-29] MEDS ORDERED: ACETAMINOPHEN TAB 500 MG TAB PO PRN (09:43)
[2020-09-29] MEDS ORDERED: SULFAMETHOX-TMP 800-160MG 1 EACH TAB PO SCH (09:45)
[2020-09-29] MEDS: PANTOPRAZOLE 40 MG TABLET PO SCH (10:52)
[2020-09-29] MEDS: hydroCHLOROthiazide 12.5 MG CAP PO SCH (10:53)
[2020-09-29] MEDS: lisinopriL 10 MG TAB PO SCH (10:53)
[2020-09-29] MEDS: METOPROLOL TARTRATE 50 MG TAB PO SCH ×2 (10:53→20:47)
[2020-09-29 11:23] LABS: Glucose,Whole Blood 83 mg/dL (75-99)
--- NOTE | 2020-09-29 12:36 | P.HPIM ---
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 Patient is currently residing in [facility]. Patient was admitted to the hospital from September 12 through September 27 which time he was treated for partial small bowel obstruction s/p partial omentectomy, lysis of adhesions and repair of incisional hernia 09/21 Dr. Fernandez. Patient was discharged back to the long term on September 27. He states he's had a bowel movement yesterday and these had increasing abdominal pain and nausea and unable to eat. Patient was brought into [facility] emergency center for evaluation. Patient was found to be afebrile, 107, blood pressure 142/89, pulse ox 98% on room air. initial heart rate 121 with repeat 101, blood pressure 119/86, pulse ox 97% on room air. WBC 16.9, hemoglobin 12.8, platelet count 741. Sodium 133, potassium 4.4, chloride 96, CO2 27, BUN 15 creatinine 1.18. Blood sugar 94. Troponin negative. CK 43. Urinalysis yellow, protein 3+, negative for infection. CAT scan of the abdomen and pelvis with contrast revealed marked dilated small bowel and dilated stomach suggestive of mechanical mid small bowel obstruction. This could be due to some adhesions in the mid abdomen. Obstruction is new compared to old exam. There is minimal free air in the pelvis probably related to intestinal obstruction. Patient has been admitted and consult in place with Dr. Fernandez. REVIEW OF SYSTEMS Constitutional: No fever, no chills, no night sweats. No weight change. No weakness, fatigue or lethargy. No daytime sleepiness. EENT: No headache. No blurred vision or double vision, no loss of vision. No loss of Hearing, no ringing in the ears, no dizziness. No nasal drainage or congestion. No epistaxis. No sore throat. Lungs: No shortness of breath, cough, no sputum production. No wheezing. Cardiovascular: No chest pain, no lower extremity edema. No palpitations. No paroxysmal nocturnal dyspnea. No orthopnea. No lightheadedness or dizziness. No syncopal episodes. Abdominal: Reports abdominal pain. Reports nausea, vomiting. No diarrhea. Reports constipation. No bloody or tarry stools. Reports loss of appetite. Genitourinary: No dysuria, increased frequency, urgency. No urinary retention. Musculoskeletal: No myalgias. No muscle weakness, no gait dysfunction, no frequent falls. No back pain. No neck pain. Integumentary: No wounds, no lesions. No rash or pruritus. No unusual bruising. No change in hair or nails. Neurologic: No aphasia. No facial droop. No change in mentation. No head injury. No headache. No paralysis. No paresthesia. Psychiatric: No depression. No anxiety. No mood swings. Endocrine: No abnormal blood sugars. No weight change. MEDICAL HISTORY Renal cell cancer Duodenal ulcer Hiatal hernia Hypertension Hyperlipidemia Diabetes mellitus type 2 Gastroesophageal reflux disease Chronic back pain SVT Borderline personality Generalized anxiety disorder SURGICAL HISTORY Hiatal hernia repair in 2001 Peptic ulcer repair in 2003 Left kidney resection in 2003 Cholecystectomy 2017 SOCIAL HISTORY Patient has been a smoker of 2 packs per day since he was 14 years of age. He denies any marijuana use for greater than 1 year. No illicit drug use. He denies any alcohol use. Patient does have a nebulizer. FAMILY HISTORY Father at age 50 from lung cancer. Mother is alive with no major medical problems. Patient states that all his siblings have anxiety and panic issues. He has 1 sister with no major medical problems. Patient has 1 brother that has adrenal gland problem. Patient is one daughter with autism. PHYSICAL EXAMINATION Gen: This is an obese 49-year-old male. Patient is resting of the ear stretcher and appears to be in no acute distress. 2 HEENT: Head is atraumatic, normocephalic. Pupils equal, round. Sclerae is anicteric. NECK: Supple. No JVD. No lymphadenopathy. No thyromegaly. LUNGS: Clear to auscultation. No wheezes or rhonchi. No intercostal retractions. HEART: Regular rate and rhythm. No murmur. ABDOMEN: Soft. Bowel sounds are present. No masses. Epigastric and generalized upper abdominal tenderness. EXTREMITIES: No pedal edema. No calf tenderness. NEUROLOGICAL: Patient is awake, alert and oriented x3. Cranial nerves 2 through 12 are grossly intact. ASSESSMENT AND PLAN 1. Small bowel obstruction. Consult with Dr. Fernandez. Patient is nothing by mouth and NG tube been ordered, 2. Recent hospitalization for Partial small bowel obstruction s/p partial omentectomy, lysis of adhesions and repair of incisional hernia 09/21. 3. History of renal cell cancer, stable. 4. Hypertension. Continue hydrochlorothiazide 12.5 mg daily, lisinopril 10 mg at bedtime, Lopressor 100 mg twice daily, hydralazine 10 mg IV push every 6 hours as needed. 5. Hyperlipidemia. Hold fenofibrate 160 mg at bedtime. 6. Diabetes mellitus type 2. Hold glipizide 10 mg daily, metformin 1000 mg twice daily, start NovoLog scale will be added. 7. Gastroesophageal reflux disease. Continue Protonix 40 mg daily IV. 8. Chronic back pain. 9. History of SVT. Continue Lopressor. 10. DVT prophylaxis. Heparin subcu. Patient will be admitted to the hospital for a minimum of 2 night stay. DISCHARGE PLAN Return To Care Home Impression and plan of care have been directed as dictated by the signing physician. Luly Coffey nurse practitioner acting as scribe for signing physician. Past Medical History Past Medical History: Atrial Fibrillation, Cancer, COPD, Diabetes Mellitus, GI Bleed, Hypertension Additional Past Medical History / Comment(s): RENAL CELL CA, DUODENAL ULCER, HIATAL HERNIA, BORDERLINE PERSONALITY DISORDER, PANIC EPISODES, ANXIETY, OCD, chronic back pain, chronic bronchitis History of Any Multi-Drug Resistant Organisms: None Reported Past Surgical History: Cholecystectomy, Hernia Repair Additional Past Surgical History / Comment(s): duodenal ulcer surgery, left kidney removal, BOWEL OBSTRUCTION SURGERY 10/08 Past Anesthesia/Blood Transfusion Reactions: No Reported Reaction Past Psychological History: Anxiety, Bipolar Additional Psychological History / Comment(s): OCD, borderline personality disorder Smoking Status: Former smoker Past Alcohol Use History: None Reported Additional Past Alcohol Use History / Comment(s): smoking 30 years 1- 1 1/2ppd Past Drug Use History: None Reported Additional Drug Use History / Comment(s): occasional marijuana - Past Family History Father Family Medical History: Cancer Additional Family Medical History / Comment(s): lung cancer Medications and Allergies Home Medications Medication Instructions Recorded Confirmed Type hydroCHLOROthiazide [Hydrodiuril] 12.5 mg PO DAILY 11/27/16 09/28/20 History Fenofibrate 160 mg PO HS 09/18/17 09/28/20 History Pantoprazole Sodium [Protonix] 40 mg PO DAILY 10/12/19 09/28/20 History Albuterol Sulfate [Proair Hfa] 1 - 2 puff INHALATION RT-Q6H PRN 08/02/20 09/28/20 History metFORMIN HCL [Glucophage] 1,000 mg PO BID 08/02/20 09/28/20 History Magnesium Oxide [Mag-Ox] 400 mg PO DAILY 08/16/20 09/28/20 History Ciclesonide [Alvesco] 1 puff INHALATION RT-BID 09/12/20 09/28/20 History Metoprolol Tartrate [Lopressor] 100 mg PO BID 09/12/20 09/28/20 History glipiZIDE [Glucotrol] 10 mg PO DAILY 09/12/20 09/28/20 History Acetaminophen Tab [Tylenol Tab] 1,000 mg PO TID PRN 09/28/20 09/28/20 History Ibuprofen [Motrin Ib] 800 mg PO BID PRN 09/28/20 09/28/20 History Sulfamethox-Tmp 800-160Mg [Bactrim 1 tab PO Q12HR 09/28/20 09/28/20 History DS 800-160 mg] lisinopriL [Zestril] 10 mg PO DAILY 09/28/20 09/28/20 History Allergies Allergy/AdvReac Type Severity Reaction Status Date / Time Iodinated Contrast Media AdvReac KIDNEY Verified 09/28/20 23:50 [Iodinated Contrast- Oral and IV Dye] Physical Exam Vitals: Vital Signs Temp Pulse Pulse Resp BP BP Pulse Ox 09/29/20 08:44 18 09/29/20 07:40 98.5 F 100 18 152/90 96 09/29/20 02:17 98.1 F 99 17 144/90 95 09/29/20 01:49 98.5 F 100 18 144/98 98 09/28/20 22:44 98.4 F 107 H 18 142/89 98 Intake and Output 09/28/20 09/29/20 09/29/20 22:59 06:59 14:59 Other: # Voids 3 Weight 120.656 kg 120.656 kg Results CBC & Chem 7: 09/28/20 23:26 09/28/20 23:26 Labs: Abnormal Lab Results - Last 24 Hours (Table) 09/28/20 09/28/20 09/29/20 Range/Units 23:26 23:26 02:34 WBC 16.9 H (3.8-10.6) k/uL Hgb 12.8 L (13.0-17.5) gm/dL Plt Count 741 H (150-450) k/uL Neutrophils # 13.9 H (1.3-7.7) k/uL Sodium 133 L (137-145) mmol/L Chloride 96 L (98-107) mmol/L Phosphorus 5.4 H (2.5-4.5) mg/dL Creatine Kinase 43 L (55-170) U/L Total Protein 5.7 L (6.3-8.2) g/dL Albumin 3.3 L (3.5-5.0) g/dL Ur Specific [place] 1.050 H (1.001-1.035) Urine Protein 3+ H (Negative) Urine RBC 6 H (0-5) /hpf Urine WBC 8 H (0-5) /hpf Urine Bacteria Rare H (None) /hpf Urine Mucus Rare H (None) /hpf Thrombosis Risk Factor Assmnt - Choose All That Apply Any of the Below Risk Factors Present?: Yes Each Factor Represents 1 point: History of prior major surgery (<1month), Medical pt on bed rest Other Risk Factors: No Other congenital or acquired thrombophilia - If yes, enter type in comment: No Thrombosis Risk Factor Assessment Total Risk Factor Score: 2 Thrombosis Risk Factor Assessment Level: Low Risk
[2020-09-29] MEDS: INSULIN ASPART (NovoLOG) 100 UNIT/ML VIAL SQ SCH ×2 (13:10→16:27)
--- NOTE | 2020-09-29 13:55 | P.GSCN ---
<Ami Toscano - Last Filed: 09/29/20 13:47> History of Present Illness Consult date: 09/29/20 History of present illness: CHIEF COMPLAINT: Abdominal pain and elevated blood pressure HISTORY OF PRESENT ILLNESS: This is a 49-year-old male with recent small bowel obstruction secondary to adhesions and is status post lysis of extensive adhesions, repair of incisional hernia and partial omentectomy completed on 09/21/[address] travis and had required hospitalization and was recently discharged on 09/27/2020. Patient is reporting abdominal pain mostly at the incisional site. He rates his pain 8 out of 10. He has been having liquidy stools and passing some gas. He is nauseated no vomiting. It is decreased appetite. Afebrile. He had a computed tomography scan of the abdomen and pelvis completed results showing markedly dilated small bowel and dilated stomach suggestive of mechanical mid small bowel obstruction. This could be due to to some adhesions in the mid abdomen. Obstruction is new compared to old exam. There is minimal free fluid in the pelvis probably related to intestinal obstruction. Patient's white count is elevated at 16.9. Surgical consult placed for small bowel obstruction. Patient currently residing at [facility]. PAST MEDICAL HISTORY: See list. PAST SURGICAL HISTORY: See list. MEDICATIONS: See list. ALLERGIES: See list. SOCIAL HISTORY: No illicit drug use. REVIEW OF SYSTEMS: CONSTITUTIONAL: Denies fever or chills. HEENT: Denies blurred vision, vision changes, or eye pain. Denies hemoptysis CARDIOVASCULAR: Denies chest pain or pressure. RESPIRATORY: No shortness of breath. GASTROINTESTINAL: See HPI for pertinent findings HEMATOLOGIC: Denies bleeding disorders. GENITOURINARY: Denies any blood in urine or increased urinary frequency. SKIN: Denies pruitis. Denies rash. PHYSICAL EXAM: VITAL SIGNS: Reviewed GENERAL: Well-developed in no acute distress. HEENT: No sclera icterus. Extraocular movements grossly intact. Moist buccal mucosa. Head is atraumatic, normocephalic. No nasal drainage. ABDOMEN: Soft. Nondistended. Tenderness along the incision site and epigastric area. Incision site is clean dry and intact. NEUROLOGIC: Alert and oriented. Cranial nerves II through XII grossly intact. LABORATORY DATA: WBC is 16.9 hemoglobin 12.8 platelets 741 INR 0.9 sodium 133 creatinine 1.18 Lactic 0.9 LFTs normal UA negative for infection IMAGING: Computed tomography scan findings as stated above ASSESSMENT: 1. Mechanical mid small bowel obstruction possibly secondary to adhesions 2. Recent small bowel obstruction secondary to adhesions. 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 Signing provider agrees with the documented findings, assessment, and plan of care. Past Medical History Past Medical History: Atrial Fibrillation, Cancer, COPD, Diabetes Mellitus, GI Bleed, Hypertension Additional Past Medical History / Comment(s): RENAL CELL CA, DUODENAL ULCER, HIATAL HERNIA, BORDERLINE PERSONALITY DISORDER, PANIC EPISODES, ANXIETY, OCD, chronic back pain, chronic bronchitis History of Any Multi-Drug Resistant Organisms: None Reported Past Surgical History: Cholecystectomy, Hernia Repair Additional Past Surgical History / Comment(s): duodenal ulcer surgery, left kidney removal, BOWEL OBSTRUCTION SURGERY 10/08 Past Anesthesia/Blood Transfusion Reactions: No Reported Reaction Past Psychological History: Anxiety, Bipolar Additional Psychological History / Comment(s): OCD, borderline personality disorder Smoking Status: Former smoker Past Alcohol Use History: None Reported Additional Past Alcohol Use History / Comment(s): smoking 30 years 1- 1 1/2ppd Past Drug Use History: None Reported Additional Drug Use History / Comment(s): occasional marijuana - Past Family History Father Family Medical History: Cancer Additional Family Medical History / Comment(s): lung cancer Medications and Allergies Home Medications Medication Instructions Recorded Confirmed Type hydroCHLOROthiazide [Hydrodiuril] 12.5 mg PO DAILY 11/27/16 09/28/20 History Fenofibrate 160 mg PO HS 09/18/17 09/28/20 History Pantoprazole Sodium [Protonix] 40 mg PO DAILY 10/12/19 09/28/20 History Albuterol Sulfate [Proair Hfa] 1 - 2 puff INHALATION RT-Q6H PRN 08/02/20 09/28/20 History metFORMIN HCL [Glucophage] 1,000 mg PO BID 08/02/20 09/28/20 History Magnesium Oxide [Mag-Ox] 400 mg PO DAILY 08/16/20 09/28/20 History Ciclesonide [Alvesco] 1 puff INHALATION RT-BID 09/12/20 09/28/20 History Metoprolol Tartrate [Lopressor] 100 mg PO BID 09/12/20 09/28/20 History glipiZIDE [Glucotrol] 10 mg PO DAILY 09/12/20 09/28/20 History Acetaminophen Tab [Tylenol Tab] 1,000 mg PO TID PRN 09/28/20 09/28/20 History Ibuprofen [Motrin Ib] 800 mg PO BID PRN 09/28/20 09/28/20 History Sulfamethox-Tmp 800-160Mg [Bactrim 1 tab PO Q12HR 09/28/20 09/28/20 History DS 800-160 mg] lisinopriL [Zestril] 10 mg PO DAILY 09/28/20 09/28/20 History Allergies Allergy/AdvReac Type Severity Reaction Status Date / Time Iodinated Contrast Media AdvReac KIDNEY Verified 09/28/20 23:50 [Iodinated Contrast- Oral and IV Dye] Surgical - Exam Vital Signs Temp Pulse Resp BP Pulse Ox 98.4 F 107 H 18 142/89 98 09/28/20 22:44 09/28/20 22:44 09/28/20 22:44 09/28/20 22:44 09/28/20 22:44 Results - Labs 09/28/20 23:26 09/28/20 23:26 Abnormal Lab Results - Last 24 Hours (Table) 09/28/20 09/28/20 09/29/20 Range/Units 23:26 23:26 02:34 WBC 16.9 H (3.8-10.6) k/uL Hgb 12.8 L (13.0-17.5) gm/dL Plt Count 741 H (150-450) k/uL Neutrophils # 13.9 H (1.3-7.7) k/uL Sodium 133 L (137-145) mmol/L Chloride 96 L (98-107) mmol/L Phosphorus 5.4 H (2.5-4.5) mg/dL Creatine Kinase 43 L (55-170) U/L Total Protein 5.7 L (6.3-8.2) g/dL Albumin 3.3 L (3.5-5.0) g/dL Ur Specific [place] 1.050 H (1.001-1.035) Urine Protein 3+ H (Negative) Urine RBC 6 H (0-5) /hpf Urine WBC 8 H (0-5) /hpf Urine Bacteria Rare H (None) /hpf Urine Mucus Rare H (None) /hpf Diabetes panel 09/28/20 Range/Units 23:26 Sodium 133 L (137-145) mmol/L Potassium 4.4 (3.5-5.1) mmol/L Chloride 96 L (98-107) mmol/L Carbon Dioxide 27 (22-30) mmol/L BUN 15 (9-20) mg/dL Creatinine 1.18 (0.66-1.25) mg/dL Glucose 94 (74-99) mg/dL Calcium 9.9 (8.4-10.2) mg/dL AST 27 (17-59) U/L ALT 17 (4-49) U/L Alkaline Phosphatase 60 (38-126) U/L Total Protein 5.7 L (6.3-8.2) g/dL Albumin 3.3 L (3.5-5.0) g/dL Calcium panel 09/28/20 Range/Units 23:26 Calcium 9.9 (8.4-10.2) mg/dL Phosphorus 5.4 H (2.5-4.5) mg/dL Albumin 3.3 L (3.5-5.0) g/dL Pituitary panel 09/28/20 Range/Units 23:26 Sodium 133 L (137-145) mmol/L Potassium 4.4 (3.5-5.1) mmol/L Chloride 96 L (98-107) mmol/L Carbon Dioxide 27 (22-30) mmol/L BUN 15 (9-20) mg/dL Creatinine 1.18 (0.66-1.25) mg/dL Glucose 94 (74-99) mg/dL Calcium 9.9 (8.4-10.2) mg/dL Adrenal panel 09/28/20 Range/Units 23:26 Sodium 133 L (137-145) mmol/L Potassium 4.4 (3.5-5.1) mmol/L Chloride 96 L (98-107) mmol/L Carbon Dioxide 27 (22-30) mmol/L BUN 15 (9-20) mg/dL Creatinine 1.18 (0.66-1.25) mg/dL Glucose 94 (74-99) mg/dL Calcium 9.9 (8.4-10.2) mg/dL Total Bilirubin 0.3 (0.2-1.3) mg/dL AST 27 (17-59) U/L ALT 17 (4-49) U/L Alkaline Phosphatase 60 (38-126) U/L Total Protein 5.7 L (6.3-8.2) g/dL Albumin 3.3 L (3.5-5.0) g/dL <Dax Wren - Last Filed: 09/29/20 16:04> History of Present Illness History of present illness: As above. Patient known to our service. Patient with recurrent admission for abdominal pain and bloating. CAT scan shows significant gastric distention. Suspect ileus rather than bowel obstruction. There is an edematous anterior abdomen small bowel loop. Will treat conservatively for now. Keep nasogastric tube to suction. Repeat x-rays tomorrow. Surgical - Exam Vital Signs Temp Pulse Resp BP Pulse Ox 98.4 F 107 H 18 142/89 98 09/28/20 22:44 09/28/20 22:44 09/28/20 22:44 09/28/20 22:44 09/28/20 22:44 Results - Labs 09/28/20 23:26 09/28/20 23:26 Abnormal Lab Results - Last 24 Hours (Table) 09/28/20 09/28/20 09/29/20 Range/Units 23:26 23:26 02:34 WBC 16.9 H (3.8-10.6) k/uL Hgb 12.8 L (13.0-17.5) gm/dL Plt Count 741 H (150-450) k/uL Neutrophils # 13.9 H (1.3-7.7) k/uL Sodium 133 L (137-145) mmol/L Chloride 96 L (98-107) mmol/L Phosphorus 5.4 H (2.5-4.5) mg/dL Creatine Kinase 43 L (55-170) U/L Total Protein 5.7 L (6.3-8.2) g/dL Albumin 3.3 L (3.5-5.0) g/dL Ur Specific [place] 1.050 H (1.001-1.035) Urine Protein 3+ H (Negative) Urine RBC 6 H (0-5) /hpf Urine WBC 8 H (0-5) /hpf Urine Bacteria Rare H (None) /hpf Urine Mucus Rare H (None) /hpf Diabetes panel 09/28/20 Range/Units 23:26 Sodium 133 L (137-145) mmol/L Potassium 4.4 (3.5-5.1) mmol/L Chloride 96 L (98-107) mmol/L Carbon Dioxide 27 (22-30) mmol/L BUN 15 (9-20) mg/dL Creatinine 1.18 (0.66-1.25) mg/dL Glucose 94 (74-99) mg/dL Calcium 9.9 (8.4-10.2) mg/dL AST 27 (17-59) U/L ALT 17 (4-49) U/L Alkaline Phosphatase 60 (38-126) U/L Total Protein 5.7 L (6.3-8.2) g/dL Albumin 3.3 L (3.5-5.0) g/dL Calcium panel 09/28/20 Range/Units 23:26 Calcium 9.9 (8.4-10.2) mg/dL Phosphorus 5.4 H (2.5-4.5) mg/dL Albumin 3.3 L (3.5-5.0) g/dL Pituitary panel 09/28/20 Range/Units 23:26 Sodium 133 L (137-145) mmol/L Potassium 4.4 (3.5-5.1) mmol/L Chloride 96 L (98-107) mmol/L Carbon Dioxide 27 (22-30) mmol/L BUN 15 (9-20) mg/dL Creatinine 1.18 (0.66-1.25) mg/dL Glucose 94 (74-99) mg/dL Calcium 9.9 (8.4-10.2) mg/dL Adrenal panel 09/28/20 Range/Units 23:26 Sodium 133 L (137-145) mmol/L Potassium 4.4 (3.5-5.1) mmol/L Chloride 96 L (98-107) mmol/L Carbon Dioxide 27 (22-30) mmol/L BUN 15 (9-20) mg/dL Creatinine 1.18 (0.66-1.25) mg/dL Glucose 94 (74-99) mg/dL Calcium 9.9 (8.4-10.2) mg/dL Total Bilirubin 0.3 (0.2-1.3) mg/dL AST 27 (17-59) U/L ALT 17 (4-49) U/L Alkaline Phosphatase 60 (38-126) U/L Total Protein 5.7 L (6.3-8.2) g/dL Albumin 3.3 L (3.5-5.0) g/dL
[2020-09-29] MEDS: ALBUTEROL HFA INHALER INHALATION PRN (16:13)
[2020-09-29] MEDS: HEPARIN SODIUM,PORCINE/PF 5,000 UNIT/0.5 ML SYRINGE SQ SCH ×2 (16:14→23:31)
[2020-09-29 16:26] LABS: Glucose,Whole Blood 73 mg/dL (75-99)
[2020-09-29 23:37] LABS: Glucose,Whole Blood 71 mg/dL (75-99)
[2020-09-30] MEDS: SODIUM CHLORIDE 0.9% 1,000 ML IV SCH ×2 (01:32→05:18)
[2020-09-30] MEDS: INSULIN ASPART (NovoLOG) 100 UNIT/ML VIAL SQ SCH ×4 (01:32→18:55)
[2020-09-30] MEDS: HYDROmorphone 1 MG/ML 1 ML SYRINGE IVP PRN ×8 (02:27→23:43)
[2020-09-30] MEDS: ONDANSETRON 4 MG/2 ML VIAL IVP PRN (05:33)
[2020-09-30 05:40] LABS: ALT 15 U/L (4-49); AST 23 U/L (17-59); African American GFR (CKD) >90 (>60 ml/min/1.73 sqM); Albumin 3.1 g/dL (3.5-5.0); Albumin/Globulin Ratio 1.3; Alkaline Phosphatase 57 U/L (38-126); Anion Gap 12 mmol/L; Blood Urea Nitrogen 13 mg/dL (9-20); Calcium 9.1 mg/dL (8.4-10.2); Carbon Dioxide 21 mmol/L (22-30); Chloride 98 mmol/L (98-107); Globulin 2.4 g/dL; Glucose 70 mg/dL (74-99); Non-African American GFR(CKD) 79 (>60 ml/min/1.73 sqM); Potassium 4.6 mmol/L (3.5-5.1); Sodium 131 mmol/L (137-145); Total Bilirubin 0.3 mg/dL (0.2-1.3); Total Protein 5.5 g/dL (6.3-8.2)
[2020-09-30 05:41] LABS: Glucose,Whole Blood 70 mg/dL (75-99)
[2020-09-30] MEDS: PANTOPRAZOLE 40 MG TABLET PO SCH (07:26)
[2020-09-30] MEDS: MAGNESIUM OXIDE 400 MG TAB PO SCH (07:26)
--- NOTE | 2020-09-30 07:38 | XR ---
EXAMINATION TYPE: XR abdomen 2V DATE OF EXAM: 09/30/2020 COMPARISON: 09/20/2020 INDICATION: Follow-up ileus TECHNIQUE: Single view abdomen upright view. Additional supine views are obtained FINDINGS: There is a nonspecific bowel gas pattern. Multiple air-fluid levels are present within small bowel lo ops. Differential air-fluid levels are not evident. Small amount of air is within the colon at the he patic flexure. No free air is identified. Nasogastric tube tip is within the proximal left upper quadrant. Multiple surgical clips are within t he abdomen. Anterior surgical skin clips are present. No mass effect is evident. The dilated small bowel loops as well as the differential air-fluid levels have largely resolved. The distended stomach is resolved. There appears to be increased bowel gas within the colon. IMPRESSION: 1. Resolving ileus or partial small bowel obstruction.
[2020-09-30] MEDS: PANTOPRAZOLE 40 MG/10 ML VIAL IV SCH (08:12)
[2020-09-30] MEDS: HEPARIN SODIUM,PORCINE/PF 5,000 UNIT/0.5 ML SYRINGE SQ SCH ×3 (08:13→23:43)
[2020-09-30 10:21] LABS: Acanthocytes 2+; Basophils # (A) 0.07 X 10*3/uL (0.00-0.10); Basophils % (A) 0.5 %; Eosinophils # (A) 0.14 X 10*3/uL (0.04-0.35); HCT 36.8 % (39.6-50.0); HGB 11.2 g/dL (13.0-17.0); Lymphocytes # (A) 2.57 X 10*3/uL (0.90-5.00); Lymphocytes % (A) 17.9 %; MCH 27.9 pg (27.0-32.0); MCHC 30.4 g/dL (32.0-37.0); MCV 91.5 fL (80.0-97.0); Mean Platelet Volume 9.8 fL (9.5-12.2); Monocytes # (A) 1.37 X 10*3/uL (0.20-1.00); Monocytes % (A) 9.6 %; Neutrophils # (A) 10.11 X 10*3/uL (1.80-7.70); Neutrophils % (A) 70.4 %; Platelet Count 773 X 10*3/uL (140-440); RBC 4.02 X 10*6/uL (4.40-5.60); RDW 13.8 % (11.5-14.5); WBC 14.34 X 10*3/uL (4.50-10.00)
[2020-09-30] MEDS: BENZOCAINE SPRAY 1 CAN MUCOUS MEM PRN ×3 (11:22→19:37)
[2020-09-30 11:27] LABS: Glucose,Whole Blood 66 mg/dL (75-99)
[2020-09-30] MEDS ORDERED: DEXTROSE 50% SYRINGE 50 ML IVP ONE (11:31)
[2020-09-30] MEDS ORDERED: DEXTROSE 5% IN WATER 1,000 ML IV SCH (11:45)
[2020-09-30 11:52] LABS: Glucose,Whole Blood 106 mg/dL (75-99)
[2020-09-30] MEDS: lisinopriL 10 MG TAB PO SCH (11:52)
[2020-09-30] MEDS: hydroCHLOROthiazide 12.5 MG CAP PO SCH (11:52)
[2020-09-30] MEDS: METOPROLOL TARTRATE 50 MG TAB PO SCH ×2 (11:52→18:54)
--- NOTE | 2020-09-30 11:52 | P.PN ---
<RodosaranyaAmi - Last Filed: 09/30/20 11:40> Subjective Progress Note Date: 09/30/20 CHIEF COMPLAINT: Abdominal pain HISTORY OF PRESENT ILLNESS: Patient is followed for possible abdominal ileus. Patient's has had a large amount of output through his NG tube. He had filled 2 canisters over the night. He reports slight decrease in the abdominal pain or pressure that he was having. He's had no flatus or BM. He is afebrile. Mild tachycardia. White count trending downwards 14.34 HGB 11.2 sodium 31 glucose 66 Abdominal x-ray shows resolving ileus or partial small bowel obstruction PHYSICAL EXAM: VITAL SIGNS: Reviewed. GENERAL: Well-developed in no acute distress. HEENT: No sclera icterus. Extraocular movements grossly intact. Moist buccal mucosa. Head is atraumatic, normocephalic. ABDOMEN: Soft. Less distended. Tenderness with palpation of upper abdomen along the right side of the incision. Incision sites clean dry and intact. NEUROLOGIC: Alert and oriented. Cranial nerves II through XII grossly intact. ASSESSMENT: 1. Suspected ileus 2. Recent small bowel obstruction secondary to adhesions. Status post lysis of extensive adhesions, repair of incisional hernia and partial omentectomy completed on 09/21/2020 3. Hypoglycemia 4. Hyponatremia PLAN: -Place NG tube for decompression -Keep patient nothing by mouth -Change IV fluids to D5 half normal saline at 130 -Continue pain medication as needed -Continue antiemetics -Continue GI and DVT prophylaxis Physician Clinical Athletic Instructor note has been reviewed by physician. Signing provider agrees with the documented findings, assessment, and plan of care. Objective - Vital Signs Vital signs: Vital Signs Temp 98.2 F 09/30/20 08:00 Pulse 106 H 09/30/20 08:00 Resp 18 09/30/20 08:00 BP 136/92 09/30/20 08:00 Pulse Ox 97 09/30/20 08:00 Intake & Output 09/29/20 09/30/20 09/30/20 18:59 06:59 18:59 Output Total 1800 2400 Balance -1800 -2400 Output: Gastric Drainage 1800 2000 Urine 400 Other: # Voids 3 1 # Bowel Movements 1 - Labs CBC & Chem 7: 09/30/20 04:42 09/30/20 04:42 Labs: Abnormal Lab Results - Last 24 Hours (Table) 09/29/20 09/29/20 09/30/20 Range/Units 16:25 23:35 04:42 WBC 14.34 H (4.50-10.00) X 10*3/uL RBC 4.02 L (4.40-5.60) X 10*6/uL Hgb 11.2 L (13.0-17.0) g/dL Hct 36.8 L (39.6-50.0) % MCHC 30.4 L (32.0-37.0) g/dL Plt Count 773 H (140-440) X 10*3/uL Plt Count Comment INCREASED A Immature Gran # 0.08 H (0.00-0.04) X 10*3/uL Neutrophils # 10.11 H (1.80-7.70) X 10*3/uL Monocytes # 1.37 H (0.20-1.00) X 10*3/uL Sodium (137-145) mmol/L Carbon Dioxide (22-30) mmol/L Glucose (74-99) mg/dL POC Glucose (mg/dL) 73 L 71 L (75-99) mg/dL Total Protein (6.3-8.2) g/dL Albumin (3.5-5.0) g/dL 09/30/20 09/30/20 09/30/20 Range/Units 04:42 05:39 11:25 WBC (4.50-10.00) X 10*3/uL RBC (4.40-5.60) X 10*6/uL Hgb (13.0-17.0) g/dL Hct (39.6-50.0) % MCHC (32.0-37.0) g/dL Plt Count (140-440) X 10*3/uL Plt Count Comment Immature Gran # (0.00-0.04) X 10*3/uL Neutrophils # (1.80-7.70) X 10*3/uL Monocytes # (0.20-1.00) X 10*3/uL Sodium 131 L (137-145) mmol/L Carbon Dioxide 21 L (22-30) mmol/L Glucose 70 L (74-99) mg/dL POC Glucose (mg/dL) 70 L 66 L (75-99) mg/dL Total Protein 5.5 L (6.3-8.2) g/dL Albumin 3.1 L (3.5-5.0) g/dL <Dax Wren - Last Filed: 09/30/20 12:37> Subjective As above. Patient feels much better. He has had significant nasogastric tube output. X-rays noted. Keep nasogastric tube to suction. Continue IV hydration. Objective - Vital Signs Vital signs: Vital Signs Temp 98.2 F 09/30/20 08:00 Pulse 106 H 09/30/20 08:00 Resp 18 09/30/20 08:00 BP 136/92 09/30/20 08:00 Pulse Ox 97 09/30/20 08:00 Intake & Output 09/29/20 09/30/20 09/30/20 18:59 06:59 18:59 Output Total 1800 2400 Balance -1800 -2400 Output: Gastric Drainage 1800 2000 Urine 400 Other: # Voids 3 1 # Bowel Movements 1 - Labs CBC & Chem 7: 09/30/20 04:42 09/30/20 04:42 Labs: Abnormal Lab Results - Last 24 Hours (Table) 09/29/20 09/29/20 09/30/20 Range/Units 16:25 23:35 04:42 WBC 14.34 H (4.50-10.00) X 10*3/uL RBC 4.02 L (4.40-5.60) X 10*6/uL Hgb 11.2 L (13.0-17.0) g/dL Hct 36.8 L (39.6-50.0) % MCHC 30.4 L (32.0-37.0) g/dL Plt Count 773 H (140-440) X 10*3/uL Plt Count Comment INCREASED A Immature Gran # 0.08 H (0.00-0.04) X 10*3/uL Neutrophils # 10.11 H (1.80-7.70) X 10*3/uL Monocytes # 1.37 H (0.20-1.00) X 10*3/uL Sodium (137-145) mmol/L Carbon Dioxide (22-30) mmol/L Glucose (74-99) mg/dL POC Glucose (mg/dL) 73 L 71 L (75-99) mg/dL Total Protein (6.3-8.2) g/dL Albumin (3.5-5.0) g/dL 09/30/20 09/30/20 09/30/20 Range/Units 04:42 05:39 11:25 WBC (4.50-10.00) X 10*3/uL RBC (4.40-5.60) X 10*6/uL Hgb (13.0-17.0) g/dL Hct (39.6-50.0) % MCHC (32.0-37.0) g/dL Plt Count (140-440) X 10*3/uL Plt Count Comment Immature Gran # (0.00-0.04) X 10*3/uL Neutrophils # (1.80-7.70) X 10*3/uL Monocytes # (0.20-1.00) X 10*3/uL Sodium 131 L (137-145) mmol/L Carbon Dioxide 21 L (22-30) mmol/L Glucose 70 L (74-99) mg/dL POC Glucose (mg/dL) 70 L 66 L (75-99) mg/dL Total Protein 5.5 L (6.3-8.2) g/dL Albumin 3.1 L (3.5-5.0) g/dL 09/30/20 Range/Units 11:51 WBC (4.50-10.00) X 10*3/uL RBC (4.40-5.60) X 10*6/uL Hgb (13.0-17.0) g/dL Hct (39.6-50.0) % MCHC (32.0-37.0) g/dL Plt Count (140-440) X 10*3/uL Plt Count Comment Immature Gran # (0.00-0.04) X 10*3/uL Neutrophils # (1.80-7.70) X 10*3/uL Monocytes # (0.20-1.00) X 10*3/uL Sodium (137-145) mmol/L Carbon Dioxide (22-30) mmol/L Glucose (74-99) mg/dL POC Glucose (mg/dL) 106 H (75-99) mg/dL Total Protein (6.3-8.2) g/dL Albumin (3.5-5.0) g/dL
[2020-09-30] MEDS ORDERED: DEXTROSE 5%-0.45% NACL 1,000 ML IV SCH (12:00)
--- NOTE | 2020-09-30 13:44 | P.PN ---
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 Patient is currently residing in [facility]. Patient was admitted to the hospital from September 12 through September 27 which time he was treated for partial small bowel obstruction s/p partial omentectomy, lysis of adhesions and repair of incisional hernia 09/21 Dr. Fernandez. Patient was [facility] back to the shelter on September 27. He states he's had a bowel movement yesterday and these had increasing abdominal pain and nausea and unable to eat. Patient was brought into [facility] emergency center for evaluation. Patient was found to be afebrile, 107, blood pressure 142/89, pulse ox 98% on room air. initial heart rate 121 with repeat 101, blood pressure 119/86, pulse ox 97% on room air. WBC 16.9, hemoglobin 12.8, platelet count 741. Sodium 133, potassium 4.4, chloride 96, CO2 27, BUN 15 creatinine 1.18. Blood sugar 94. Troponin negative. CK 43. Urinalysis yellow, protein 3+, negative for infection. CAT scan of the abdomen and pelvis with contrast revealed marked dilated small bowel and dilated stomach suggestive of mechanical mid small bowel obstruction. This could be due to some adhesions in the mid abdomen. Obstruction is new compared to old exam. There is minimal free air in the pelvis probably related to intestinal obstruction. Patient has been admitted and consult in place with Dr. Fernandez. 09/30: Patient has NG tube in place. He denies passing any gas and having a bowel movement. Patient has been seen by general surgery for ileus versus small bowel obstruction. Hurricaine spray added for irritation to mucous membranes from NG tube. 2 officers remain at the bedside. Patient has been afebrile, heart rate 106, blood pressure 136/92, pulse ox 97% on room air. Repeat blood work reveals WBC 14.3, hemoglobin 11.2 completed a couple center 73. Sodium 131, potassium 4.6, chloride 98, CO2 21, BUN 13 and creatinine 1.09. Blood sugars are running between 66 and 106. Patient is on IV fluids dextrose 5% half normal saline which will be changed to D5 0.9 normal saline due to low sodium. He is on heparin subcu for DVT prophylaxis and Protonix for GI prophylaxis. Patient also has morphine available and Zofran. REVIEW OF SYSTEMS Constitutional: No fever, no chills, no night sweats. No weight change. No weakness, fatigue or lethargy. No daytime sleepiness. EENT: No headache. No blurred vision or double vision, no loss of vision. No loss of Hearing, no ringing in the ears, no dizziness. No nasal drainage or congestion. No epistaxis. No sore throat. Lungs: No shortness of breath, cough, no sputum production. No wheezing. Cardiovascular: No chest pain, no lower extremity edema. No palpitations. No paroxysmal nocturnal dyspnea. No orthopnea. No lightheadedness or dizziness. No syncopal episodes. Abdominal: Reports abdominal pain. Reports nausea, denies vomiting. No diarrhea. Reports constipation. No bloody or tarry stools. Reports loss of appetite. Genitourinary: No dysuria, increased frequency, urgency. No urinary retention. Musculoskeletal: No myalgias. No muscle weakness, no gait dysfunction, no frequent falls. No back pain. No neck pain. Integumentary: No wounds, no lesions. No rash or pruritus. No unusual bruising. No change in hair or nails. Neurologic: No aphasia. No facial droop. No change in mentation. No head injury. No headache. No paralysis. No paresthesia. Psychiatric: No depression. No anxiety. No mood swings. Endocrine: No abnormal blood sugars. No weight change. PHYSICAL EXAMINATION Gen: This is an obese 49-year-old male. Patient is resting in bed and appears to be in no acute distress. HEENT: Head is atraumatic, normocephalic. Pupils equal, round. Sclerae is anicteric. NG tube in place with return of brown fluid. NECK: Supple. No JVD. No lymphadenopathy. No thyromegaly. LUNGS: Clear to auscultation. No wheezes or rhonchi. No intercostal retractions. HEART: Regular rate and rhythm. No murmur. ABDOMEN: Soft. Bowel sounds are present. No masses. Epigastric and generalized upper abdominal tenderness. EXTREMITIES: No pedal edema. No calf tenderness. NEUROLOGICAL: Patient is awake, alert and oriented x3. Cranial nerves 2 through 12 are grossly intact. ASSESSMENT AND PLAN 1. Small bowel obstruction or ileus. Consult with Dr. Fernandez. Patient is nothing by mouth and NG tube. IV fluids D5 0.9 normal saline at 130 mL/h 2. Recent hospitalization for Partial small bowel obstruction s/p partial omentectomy, lysis of adhesions and repair of incisional hernia 09/21. 3. History of renal cell cancer, stable. 4. Hypertension. Hold oral indications: hydrochlorothiazide 12.5 mg daily, lisinopril 10 mg at bedtime, Lopressor 100 mg twice daily, continue hydralazine 10 mg IV push every 6 hours as needed for systolic blood pressure greater than 160 or diastolic blood pressure greater than 90.. 5. Hyperlipidemia. Hold fenofibrate 160 mg at bedtime. 6. Diabetes mellitus type 2. Hold glipizide 10 mg daily, metformin 1000 mg twice daily, start NovoLog scale will be added. 7. Gastroesophageal reflux disease. Continue Protonix 40 mg daily IV. 8. Chronic back pain. 9. History of SVT. Continue Lopressor. 10. DVT prophylaxis. Heparin subcu. DISCHARGE PLAN Return To Custodial. 2 officers are at bedside. Impression and plan of care have been directed as dictated by the signing physician. Luly Coffey nurse practitioner acting as scribe for signing lópez lan. Objective - Vital Signs Vital signs: Vital Signs Temp 98.2 F 09/30/20 08:00 Pulse 106 H 09/30/20 08:00 Resp 18 09/30/20 08:00 BP 136/92 09/30/20 08:00 Pulse Ox 97 09/30/20 08:00 Intake & Output 09/29/20 09/30/20 09/30/20 18:59 06:59 18:59 Output Total 1800 2400 Balance -1800 -2400 Output: Gastric Drainage 1800 2000 Urine 400 Other: # Voids 3 1 # Bowel Movements 1 - Labs CBC & Chem 7: 09/30/20 04:42 09/30/20 04:42 Labs: Abnormal Lab Results - Last 24 Hours (Table) 09/29/20 09/29/20 09/30/20 Range/Units 16:25 23:35 04:42 Sodium 131 L (137-145) mmol/L Carbon Dioxide 21 L (22-30) mmol/L Glucose 70 L (74-99) mg/dL POC Glucose (mg/dL) 73 L 71 L (75-99) mg/dL Total Protein 5.5 L (6.3-8.2) g/dL Albumin 3.1 L (3.5-5.0) g/dL 09/30/20 Range/Units 05:39 Sodium (137-145) mmol/L Carbon Dioxide (22-30) mmol/L Glucose (74-99) mg/dL POC Glucose (mg/dL) 70 L (75-99) mg/dL Total Protein (6.3-8.2) g/dL Albumin (3.5-5.0) g/dL
[2020-09-30] MEDS: DEXTROSE 5%-0.9% NACL 1,000 ML IV SCH ×2 (14:55→20:47)
[2020-09-30 16:22] LABS: Glucose,Whole Blood 102 mg/dL (75-99)
[2020-09-30] MEDS: hydrALAZINE HCL 20 MG/ML 1 ML VIAL IVP PRN (21:01)
[2020-10-01 00:30] LABS: Glucose,Whole Blood 85 mg/dL (75-99)
[2020-10-01] MEDS: HYDROmorphone 1 MG/ML 1 ML SYRINGE IVP PRN ×7 (02:48→21:10)
[2020-10-01] MEDS: BENZOCAINE SPRAY 1 CAN MUCOUS MEM PRN ×2 (02:54→12:02)
[2020-10-01] MEDS: INSULIN ASPART (NovoLOG) 100 UNIT/ML VIAL SQ SCH ×4 (03:09→16:29)
[2020-10-01] MEDS: DEXTROSE 5%-0.9% NACL 1,000 ML IV SCH ×3 (04:36→23:04)
[2020-10-01 06:37] LABS: Glucose,Whole Blood 100 mg/dL (75-99)
[2020-10-01] MEDS: METOPROLOL TARTRATE 50 MG TAB PO SCH ×2 (07:04→21:08)
[2020-10-01] MEDS: MAGNESIUM OXIDE 400 MG TAB PO SCH (07:04)
[2020-10-01] MEDS: hydroCHLOROthiazide 12.5 MG CAP PO SCH (07:04)
[2020-10-01] MEDS: PANTOPRAZOLE 40 MG TABLET PO SCH (07:04)
[2020-10-01] MEDS: lisinopriL 10 MG TAB PO SCH (07:04)
[2020-10-01] MEDS: HEPARIN SODIUM,PORCINE/PF 5,000 UNIT/0.5 ML SYRINGE SQ SCH ×2 (07:15→18:07)
[2020-10-01] MEDS: PANTOPRAZOLE 40 MG/10 ML VIAL IV SCH (07:15)
[2020-10-01] MEDS: hydrALAZINE HCL 20 MG/ML 1 ML VIAL IVP PRN (07:18)
--- NOTE | 2020-10-01 09:09 | P.PN ---
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 Patient is currently residing in [facility]. Patient was admitted to the hospital from September 12 through September 27 which time he was treated for partial small bowel obstruction s/p partial omentectomy, lysis of adhesions and repair of incisional hernia 09/21 Dr. Fernandez. Patient was discharged back to the long term on September 27. He states he's had a bowel movement yesterday and these had increasing abdominal pain and nausea and unable to eat. Patient was brought into [facility] emergency center for evaluation. Patient was found to be afebrile, 107, blood pressure 142/89, pulse ox 98% on room air. initial heart rate 121 with repeat 101, blood pressure 119/86, pulse ox 97% on room air. WBC 16.9, hemoglobin 12.8, platelet count 741. Sodium 133, potassium 4.4, chloride 96, CO2 27, BUN 15 creatinine 1.18. Blood sugar 94. Troponin negative. CK 43. Urinalysis yellow, protein 3+, negative for infection. CAT scan of the abdomen and pelvis with contrast revealed marked dilated small bowel and dilated stomach suggestive of mechanical mid small bowel obstruction. This could be due to some adhesions in the mid abdomen. Obstruction is new compared to old exam. There is minimal free air in the pelvis probably related to intestinal obstruction. Patient has been admitted and consult in place with Dr. Fernandez. 09/30: Patient has NG tube in place. He denies passing any gas and having a bowel movement. Patient has been seen by general surgery for ileus versus small bowel obstruction. Hurricaine spray added for irritation to mucous membranes from NG tube. 2 officers remain at the bedside. Patient has been afebrile, heart rate 106, blood pressure 136/92, pulse ox 97% on room air. Repeat blood work reveals WBC 14.3, hemoglobin 11.2 completed a couple center 73. Sodium 131, potassium 4.6, chloride 98, CO2 21, BUN 13 and creatinine 1.09. Blood sugars are running between 66 and 106. Patient is on IV fluids dextrose 5% half normal saline which will be changed to D5 0.9 normal saline due to low sodium. He is on heparin subcu for DVT prophylaxis and Protonix for GI prophylaxis. Patient also has morphine available and Zofran. 10/01: Patient has been afebrile, heart rate 99, blood pressure 160/88, pulse ox 98% on room air. Blood sugars running between 85 and 106. Patient complains of RUQ pain, he has not passed gas, no bowel movement. He has had large output from NG tube yellow-brown fluid. He also complains of some nausea and insomnia for which Benadryl will be added and patient will need to ask for a period patient has 2 officers in the room and they state that he walked in the hallway yesterday. Repeat blood work has been ordered. REVIEW OF SYSTEMS Constitutional: No fever, no chills, no night sweats. No weight change. No weakness, fatigue or lethargy. No daytime sleepiness. EENT: No headache. No blurred vision or double vision, no loss of vision. No loss of Hearing, no ringing in the ears, no dizziness. No nasal drainage or congestion. No epistaxis. No sore throat. Lungs: No shortness of breath, cough, no sputum production. No wheezing. Cardiovascular: No chest pain, no lower extremity edema. No palpitations. No paroxysmal nocturnal dyspnea. No orthopnea. No lightheadedness or dizziness. No syncopal episodes. Abdominal: Reports abdominal pain. Reports nausea, denies vomiting. No diarrhea. Reports constipation. No bloody or tarry stools. Reports loss of appetite. Genitourinary: No dysuria, increased frequency, urgency. No urinary retention. Musculoskeletal: No myalgias. No muscle weakness, no gait dysfunction, no frequent falls. No back pain. No neck pain. Integumentary: No wounds, no lesions. No rash or pruritus. No unusual bruising. No change in hair or nails. Neurologic: No aphasia. No facial droop. No change in mentation. No head injury. No headache. No paralysis. No paresthesia. Psychiatric: No depression. No anxiety. No mood swings. Endocrine: No abnormal blood sugars. No weight change. PHYSICAL EXAMINATION Gen: This is an obese 49-year-old male. Patient is resting in bed and appears to be in no acute distress. HEENT: Head is atraumatic, normocephalic. Pupils equal, round. Sclerae is anicteric. NG tube in place with return of brown fluid. NECK: Supple. No JVD. No lymphadenopathy. No thyromegaly. LUNGS: Clear to auscultation. No wheezes or rhonchi. No intercostal retractions. HEART: Regular rate and rhythm. No murmur. ABDOMEN: Distended. Bowel sounds are present. No masses. Epigastric and right upper abdominal tenderness. incisionline with no redness or drainage. EXTREMITIES: No pedal edema. No calf tenderness. NEUROLOGICAL: Patient is awake, alert and oriented x3. Cranial nerves 2 through 12 are grossly intact. ASSESSMENT AND PLAN 1. Small bowel obstruction or ileus. Consult with Dr. Fernandez. Patient is nothing by mouth and NG tube. IV fluids D5 0.9 normal saline at 130 mL/h 2. Recent hospitalization for Partial small bowel obstruction s/p partial omentectomy, lysis of adhesions and repair of incisional hernia 09/21. 3. History of renal cell cancer, stable. 4. Hypertension. Hold oral indications: hydrochlorothiazide 12.5 mg daily, lisinopril 10 mg at bedtime, Lopressor 100 mg twice daily, continue hydralazine 10 mg IV push every 6 hours as needed for systolic blood pressure greater than 160 or diastolic blood pressure greater than 90.. 5. Hyperlipidemia. Hold fenofibrate 160 mg at bedtime. 6. Diabetes mellitus type 2. Hold glipizide 10 mg daily, metformin 1000 mg twice daily, start NovoLog scale will be added. 7. Gastroesophageal reflux disease. Continue Protonix 40 mg daily IV. 8. Chronic back pain. 9. History of SVT. Continue Lopressor. 10. DVT prophylaxis. Heparin subcu. DISCHARGE PLAN Return To [facility]. 2 officers are at bedside. Impression and plan of care have been directed as dictated by the signing physician. Luly Coffey nurse practitioner acting as scribe for signing physician. Objective - Vital Signs Vital signs: Vital Signs Temp 98.5 F 10/01/20 07:42 Pulse 99 10/01/20 07:42 Resp 16 10/01/20 07:42 BP 160/88 10/01/20 07:42 Pulse Ox 98 10/01/20 07:42 Intake & Output 09/30/20 10/01/20 10/01/20 18:59 06:59 18:59 Intake Total 1980 Output Total 1300 1800 Balance 680 -1800 Intake: Intake, IV Titration 1560 Amount Dextrose 5%-0.9% NaCl 1, 910 000 ml @ 130 mls/hr IV . Q7H42M [facility] Rx#:[id number] Sodium Chloride 0.9% 1, 650 000 ml @ 130 mls/hr IV . Q7H42M [facility] Rx#:[id number] Oral 420 Output: Gastric Drainage 1300 1800 Other: # Voids 3 # Bowel Movements 0 - Labs CBC & Chem 7: 09/30/20 04:42 09/30/20 04:42 Labs: Abnormal Lab Results - Last 24 Hours (Table) 09/30/20 09/30/20 09/30/20 Range/Units 04:42 11:25 11:51 WBC 14.34 H (4.50-10.00) X 10*3/uL RBC 4.02 L (4.40-5.60) X 10*6/uL Hgb 11.2 L (13.0-17.0) g/dL Hct 36.8 L (39.6-50.0) % MCHC 30.4 L (32.0-37.0) g/dL Plt Count 773 H (140-440) X 10*3/uL Plt Count Comment INCREASED A Immature Gran # 0.08 H (0.00-0.04) X 10*3/uL Neutrophils # 10.11 H (1.80-7.70) X 10*3/uL Monocytes # 1.37 H (0.20-1.00) X 10*3/uL POC Glucose (mg/dL) 66 L 106 H (75-99) mg/dL 09/30/20 10/01/20 Range/Units 16:18 06:30 WBC (4.50-10.00) X 10*3/uL RBC (4.40-5.60) X 10*6/uL Hgb (13.0-17.0) g/dL Hct (39.6-50.0) % MCHC (32.0-37.0) g/dL Plt Count (140-440) X 10*3/uL Plt Count Comment Immature Gran # (0.00-0.04) X 10*3/uL Neutrophils # (1.80-7.70) X 10*3/uL Monocytes # (0.20-1.00) X 10*3/uL POC Glucose (mg/dL) 102 H 100 H (75-99) mg/dL
[2020-10-01 11:25] LABS: ALT 14 U/L (4-49); AST 24 U/L (17-59); African American GFR (CKD) >90 (>60 ml/min/1.73 sqM); Albumin 3.2 g/dL (3.5-5.0); Albumin/Globulin Ratio 1.3; Alkaline Phosphatase 57 U/L (38-126); Anion Gap 10 mmol/L; Blood Urea Nitrogen 7 mg/dL (9-20); Carbon Dioxide 23 mmol/L (22-30); Chloride 99 mmol/L (98-107); Globulin 2.5 g/dL; Glucose 107 mg/dL (74-99); Non-African American GFR(CKD) >90 (>60 ml/min/1.73 sqM); Potassium 4.1 mmol/L (3.5-5.1); Sodium 132 mmol/L (137-145); Total Bilirubin 0.2 mg/dL (0.2-1.3); Total Protein 5.7 g/dL (6.3-8.2)
[2020-10-01 11:27] LABS: Glucose,Whole Blood 102 mg/dL (75-99)
[2020-10-01 12:06] LABS: HCT 36.3 % (39.0-53.0); HGB 11.8 gm/dL (13.0-17.5); Hypochromasia Slight; MCH 29.8 pg (25.0-35.0); MCHC 32.4 g/dL (31.0-37.0); Mean Platelet Volume 7.4; Platelet Count 644 k/uL (150-450); RBC 3.95 m/uL (4.30-5.90); RDW 13.7 % (11.5-15.5); WBC 11.2 k/uL (3.8-10.6)
--- NOTE | 2020-10-01 12:44 | P.PN ---
Subjective Progress Note Date: 10/01/20 CHIEF COMPLAINT: Ileus HISTORY OF PRESENT ILLNESS: The patient is a 49-year-old male readmitted to the hospital due to ileus status post exploratory laparotomy lysis of adhesions 2 weeks ago. He [facility] then came back in less than 2 days with abdominal pain. Still has NG tube with bilious output. He is tolerating ice chips. ROS: No fevers or chills. No new chest pain. No productive sputum PHYSICAL EXAM: VITAL SIGNS: Reviewed CONSTITUTIONAL: Well developed and in no acute distress. EYES: Conjuctivae without sclera icterus. Extraocular movements grossly intact. HEAD, EARS, NOSE, THROAT: Moist buccal mucosa. Head is atraumatic, normocephalic. Hears conversational speech. No nasal drainage. NECK: No gross thyroidomegaly. No jugular venous distention. RESPIRATORY: Non-labored respirations and equal bilateral excursions. CARDIOVASCULAR: Palpable 2+ radial pulses. ABDOMEN: Obese. No peritonitis. Syed intact. MUSCULOSKELETAL: No gross deformity of the lower extremities noted. No clubbing. No cyanosis. SKIN: Good skin turgor. Well perfused. NEUROLOGIC: Cranial nerves II through XII grossly intact. No focal or lateralizing signs. PSYCH: Appropriate affect. Alert and oriented to person, place and time. CLINICAL LABS: White blood cell count elevated 14,000 now down to 11,000 ASSESSMENT: 1. Ileus status post lysis of adhesions for bowel obstruction PLAN: 1. Continue nasogastric tube decompression 2. Will await start of diet as WBC improves and abdominal pain resolves. Objective - Vital Signs Vital signs: Vital Signs Temp 98.5 F 10/01/20 07:42 Pulse 99 10/01/20 07:42 Resp 16 10/01/20 07:42 BP 160/88 10/01/20 07:42 Pulse Ox 98 10/01/20 07:42 Intake & Output 09/30/20 10/01/20 10/01/20 18:59 06:59 18:59 Intake Total 1980 Output Total 1300 1800 Balance 680 -1800 Intake: Intake, IV Titration 1560 Amount Dextrose 5%-0.9% NaCl 1, 910 000 ml @ 130 mls/hr IV . Q7H42M [facility] Rx#:[id number] Sodium Chloride 0.9% 1, 650 000 ml @ 130 mls/hr IV . Q7H42M [facility] Rx#:[id number] Oral 420 Output: Gastric Drainage 1300 1800 Other: # Voids 3 # Bowel Movements 0 - Labs CBC & Chem 7: 10/01/20 10:29 10/01/20 10:29 Labs: Abnormal Lab Results - Last 24 Hours (Table) 09/30/20 09/30/20 09/30/20 Range/Units 11:25 11:51 16:18 POC Glucose (mg/dL) 66 L 106 H 102 H (75-99) mg/dL 10/01/20 Range/Units 06:30 POC Glucose (mg/dL) 100 H (75-99) mg/dL
[2020-10-01 16:28] LABS: Glucose,Whole Blood 112 mg/dL (75-99)
[2020-10-02 00:05] LABS: Glucose,Whole Blood 99 mg/dL (75-99)
[2020-10-02] MEDS: HEPARIN SODIUM,PORCINE/PF 5,000 UNIT/0.5 ML SYRINGE SQ SCH ×4 (00:07→23:50)
[2020-10-02] MEDS: HYDROmorphone 1 MG/ML 1 ML SYRINGE IVP PRN ×8 (00:07→22:33)
[2020-10-02] MEDS: INSULIN ASPART (NovoLOG) 100 UNIT/ML VIAL SQ SCH ×4 (00:10→17:31)
[2020-10-02] MEDS: DEXTROSE 5%-0.9% NACL 1,000 ML IV SCH ×3 (05:10→21:46)
[2020-10-02 06:36] LABS: Glucose,Whole Blood 114 mg/dL (75-99)
[2020-10-02] MEDS: PANTOPRAZOLE 40 MG/10 ML VIAL IV SCH (07:22)
[2020-10-02] MEDS ORDERED: METOPROLOL TARTRATE 5 MG/5 ML VIAL IVP SCH (08:30)
[2020-10-02] MEDS: hydrALAZINE HCL 20 MG/ML 1 ML VIAL IVP PRN (09:08)
--- NOTE | 2020-10-02 09:45 | XR ---
EXAMINATION TYPE: XR abdomen 2V DATE OF EXAM: 10/02/2020 COMPARISON: 09/30/2020 and prior HISTORY: 49 years Male. STUDY INDICATION GIVEN: SBO/ileus . TECHNIQUE: AP upright and supine abdominal radiographs FINDINGS AND IMPRESSION: Extensive postsurgical changes in the abdomen are again demonstrated. There is no bowel obstruction. Previously seen air-fluid levels are not well demonstrated on this tasha dy. No evidence of large pneumoperitoneum. Subsegmental atelectatic changes in the lung bases. Enteric tube courses into the stomach. No acute osseous abnormality.
[2020-10-02] MEDS: METOPROLOL TARTRATE 50 MG TAB PO SCH ×2 (09:46→19:34)
[2020-10-02] MEDS: MAGNESIUM OXIDE 400 MG TAB PO SCH (10:21)
[2020-10-02] MEDS: lisinopriL 10 MG TAB PO SCH (10:21)
[2020-10-02] MEDS: hydroCHLOROthiazide 12.5 MG CAP PO SCH (10:21)
[2020-10-02] MEDS: PIPERACILLIN-TAZOBACTAM 3.375 GM in SODIUM CHLORIDE 0.9% 100 ML IVPB SCH ×3 (10:26→23:50)
[2020-10-02 11:03] LABS: HCT 34.7 % (39.6-50.0); MCH 28.3 pg (27.0-32.0); MCHC 31.7 g/dL (32.0-37.0); MCV 89.2 fL (80.0-97.0); Mean Platelet Volume 9.7 fL (9.5-12.2); Platelet Count 802 X 10*3/uL (140-440); RBC 3.89 X 10*6/uL (4.40-5.60); RDW 13.8 % (11.5-14.5)
[2020-10-02 11:45] LABS: Glucose,Whole Blood 101 mg/dL (75-99)
[2020-10-02] MEDS: PANTOPRAZOLE 40 MG TABLET PO SCH (11:48)
[2020-10-02 12:02] LABS: African American GFR (CKD) 101.3 (60.0-200.0); Albumin 3.5 g/dL (3.80-4.90); Albumin/Globulin Ratio 1.67 (1.60-3.17); Anion Gap 13.5 mmol/L (4.00-12.00); Calcium 8.8 mg/dL (8.7-10.3); Carbon Dioxide 25.5 mmol/L (21.6-31.8); Globulin 2.1 g/dL (1.6-3.3); Non-African American GFR(CKD) 87.4 (60.0-200.0); Potassium 4.1 mmol/L (3.5-5.5); Total Bilirubin 0.2 mg/dL (0.2-1.2); Total Protein 5.6 g/dL (6.2-8.2)
--- NOTE | 2020-10-02 12:24 | P.PN ---
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 Patient is currently residing in [facility]. Patient was admitted to the hospital from September 12 through September 27 which time he was treated for partial small bowel obstruction s/p partial omentectomy, lysis of adhesions and repair of incisional hernia 09/21 Dr. Fernandez. Patient was discharged back to the detention on September 27. He states he's had a bowel movement yesterday and these had increasing abdominal pain and nausea and unable to eat. Patient was brought into [facility] emergency center for evaluation. Patient was found to be afebrile, 107, blood pressure 142/89, pulse ox 98% on room air. initial heart rate 121 with repeat 101, blood pressure 119/86, pulse ox 97% on room air. WBC 16.9, hemoglobin 12.8, platelet count 741. Sodium 133, potassium 4.4, chloride 96, CO2 27, BUN 15 creatinine 1.18. Blood sugar 94. Troponin negative. CK 43. Urinalysis yellow, protein 3+, negative for infection. CAT scan of the abdomen and pelvis with contrast revealed marked dilated small bowel and dilated stomach suggestive of mechanical mid small bowel obstruction. This could be due to some adhesions in the mid abdomen. Obstruction is new compared to old exam. There is minimal free air in the pelvis probably related to intestinal obstruction. Patient has been admitted and consult in place with Dr. Fernandez. 09/30: Patient has NG tube in place. He denies passing any gas and having a bowel movement. Patient has been seen by general surgery for ileus versus small bowel obstruction. Hurricaine spray added for irritation to mucous membranes from NG tube. 2 officers remain at the bedside. Patient has been afebrile, heart rate 106, blood pressure 136/92, pulse ox 97% on room air. Repeat blood work reveals WBC 14.3, hemoglobin 11.2 completed a couple center 73. Sodium 131, potassium 4.6, chloride 98, CO2 21, BUN 13 and creatinine 1.09. Blood sugars are running between 66 and 106. Patient is on IV fluids dextrose 5% half normal saline which will be changed to D5 0.9 normal saline due to low sodium. He is on heparin subcu for DVT prophylaxis and Protonix for GI prophylaxis. Patient also has morphine available and Zofran. 10/01: Patient has been afebrile, heart rate 99, blood pressure 160/88, pulse ox 98% on room air. Blood sugars running between 85 and 106. Patient complains of RUQ pain, he has not passed gas, no bowel movement. He has had large output from NG tube yellow-brown fluid. He also complains of some nausea and insomnia for which Benadryl will be added and patient will need to ask for a period patient has 2 officers in the room and they state that he walked in the hallway yesterday. Repeat blood work has been ordered. 10/02: Patient has been afebrile, heart rate 115, blood pressure 160/95, pulse ox 97% on room air. Patient started on IV Lopressor scheduled and until nothing by mouth status is discontinued. Blood sugars are running between 99 and 114. Patient states he slept well last night. He is not passing gas and is not having a bowel movement. NG tube remains in place with bile-colored fluid return. Patient is complaining of more right upper abdominal pain today. Zosyn added. Abdominal x-ray reveals no bowel obstruction. No large pneum operitoneum. Atelectasis in the lung bases. Some spirometry added. WBC 10.9, hemoglobin 11, platelet count 802. Electrolytes within normal limits. BUN 6 and creatinine 1. Blood sugars running between 99 and 114. REVIEW OF SYSTEMS Constitutional: No fever, no chills, no night sweats. No weight change. No weakness, fatigue or lethargy. No daytime sleepiness. EENT: No headache. No blurred vision or double vision, no loss of vision. No loss of Hearing, no ringing in the ears, no dizziness. No nasal drainage or congestion. No epistaxis. No sore throat. Lungs: No shortness of breath, cough, no sputum production. No wheezing. Cardiovascular: No chest pain, no lower extremity edema. No palpitations. No paroxysmal nocturnal dyspnea. No orthopnea. No lightheadedness or dizziness. No syncopal episodes. Abdominal: Reports abdominal pain. Reports nausea, denies vomiting. No diarrhea. Reports constipation. No bloody or tarry stools. Reports loss of appetite. Genitourinary: No dysuria, increased frequency, urgency. No urinary retention. Musculoskeletal: No myalgias. No muscle weakness, no gait dysfunction, no frequent falls. No back pain. No neck pain. Integumentary: No wounds, no lesions. No rash or pruritus. No unusual bruising. No change in hair or nails. Neurologic: No aphasia. No facial droop. No change in mentation. No head injury. No headache. No paralysis. No paresthesia. Psychiatric: No depression. No anxiety. No mood swings. Endocrine: No abnormal blood sugars. No weight change. PHYSICAL EXAMINATION Gen: This is an obese 49-year-old male. Patient is resting in bed and appears to be in no acute distress. HEENT: Head is atraumatic, normocephalic. Pupils equal, round. Sclerae is anicteric. NG tube in place with return of brown fluid. NECK: Supple. No JVD. No lymphadenopathy. No thyromegaly. LUNGS: Clear to auscultation. No wheezes or rhonchi. No intercostal retractions. HEART: Regular rate and rhythm. No murmur. ABDOMEN: Distended. No bowel sounds. No masses. Epigastric and right upper abdominal tenderness. incisionline with no redness or drainage. EXTREMITIES: No pedal edema. No calf tenderness. NEUROLOGICAL: Patient is awake, alert and oriented x3. Cranial nerves 2 through 12 are grossly intact. ASSESSMENT AND PLAN 1. Small bowel obstruction or ileus. Consult with Dr. Fernandez/general surgery appreciated. Patient is nothing by mouth and NG tube. IV fluids D5 0.9 normal saline at 130 mL/h. Zosyn added for right-sided peritonitis. 2. Recent hospitalization for Partial small bowel obstruction s/p partial omentectomy, lysis of adhesions and repair of incisional hernia 09/21. 3. History of renal cell cancer, stable. 4. Hypertension. Hold oral medications: hydrochlorothiazide 12.5 mg daily, lisinopril 10 mg at bedtime, Lopressor 100 mg twice daily, continue hydralazine 10 mg IV push every 6 hours as needed for systolic blood pressure greater than 160 or diastolic blood pressure greater than 90. Start patient on IV Lopressor 5 mg every 6 hours. 5. Hyperlipidemia. Hold fenofibrate 160 mg at bedtime. 6. Diabetes mellitus type 2. Hold glipizide 10 mg daily, metformin 1000 mg twice daily, start NovoLog scale will be added. 7. Gastroesophageal reflux disease. Continue Protonix 40 mg daily IV. 8. Chronic back pain. 9. History of SVT. Continue Lopressor. 10. DVT prophylaxis. Heparin subcu. DISCHARGE PLAN Return To Assisted. 2 officers are at bedside. Impression and plan of care have been directed as dictated by the signing physician. Luly Coffey nurse practitioner acting as scribe for signing physician. Objective - Vital Signs Vital signs: Vital Signs Temp 98.4 F 10/02/20 08:00 Pulse 115 H 10/02/20 08:00 Resp 18 10/02/20 08:00 BP 160/95 10/02/20 08:00 Pulse Ox 97 10/02/20 08:00 Intake & Output 10/01/20 10/02/20 10/02/20 18:59 06:59 18:59 Intake Total 1560 Output Total 1500 Balance -1500 1560 Intake: Intake, IV Titration 1560 Amount Dextrose 5%-0.9% NaCl 1, 1560 000 ml @ 130 mls/hr IV . Q7H42M [facility] Rx#:[id number] Output: Gastric Drainage 1500 Other: Voiding Method Toilet Toilet Urinal # Voids 4 1 # Bowel Movements 0 - Labs CBC & Chem 7: 10/02/20 05:56 10/02/20 05:56 Labs: Abnormal Lab Results - Last 24 Hours (Table) 10/01/20 10/01/20 10/01/20 Range/Units 10:29 10:29 11:24 WBC 11.2 H (3.8-10.6) k/uL RBC 3.95 L (4.30-5.90) m/uL Hgb 11.8 L (13.0-17.5) gm/dL Hct 36.3 L (39.0-53.0) % Plt Count 644 H (150-450) k/uL Sodium 132 L (137-145) mmol/L BUN 7 L (9-20) mg/dL Glucose 107 H (74-99) mg/dL POC Glucose (mg/dL) 102 H (75-99) mg/dL Total Protein 5.7 L (6.3-8.2) g/dL Albumin 3.2 L (3.5-5.0) g/dL 10/01/20 10/02/20 Range/Units 16:26 06:24 WBC (3.8-10.6) k/uL RBC (4.30-5.90) m/uL Hgb (13.0-17.5) gm/dL Hct (39.0-53.0) % Plt Count (150-450) k/uL Sodium (137-145) mmol/L BUN (9-20) mg/dL Glucose (74-99) mg/dL POC Glucose (mg/dL) 112 H 114 H (75-99) mg/dL Total Protein (6.3-8.2) g/dL Albumin (3.5-5.0) g/dL
[2020-10-02 16:50] LABS: Glucose,Whole Blood 106 mg/dL (75-99)
--- NOTE | 2020-10-02 19:22 | P.PN ---
Subjective Progress Note Date: 10/02/20 CHIEF COMPLAINT: Ileus HISTORY OF PRESENT ILLNESS: The patient is a 49-year-old male readmitted to the hospital due to ileus status post exploratory laparotomy lysis of adhesions 2 weeks ago. He reports no passage of flatus. He reports upper and lower abdominal pain. ROS: No fevers or chills. No new chest pain. No productive sputum PHYSICAL EXAM: VITAL SIGNS: Reviewed CONSTITUTIONAL: Well developed and in no acute distress. EYES: Conjuctivae without sclera icterus. Extraocular movements grossly intact. HEAD, EARS, NOSE, THROAT: Moist buccal mucosa. Head is atraumatic, normocephalic. Hears conversational speech. No nasal drainage. NECK: No gross thyroidomegaly. No jugular venous distention. RESPIRATORY: Non-labored respirations and equal bilateral excursions. CARDIOVASCULAR: Palpable 2+ radial pulses. ABDOMEN: Obese. No peritonitis. Syed intact. MUSCULOSKELETAL: No gross deformity of the lower extremities noted. No clubbing. No cyanosis. SKIN: Good skin turgor. Well perfused. NEUROLOGIC: Cranial nerves II through XII grossly intact. No focal or lateralizing signs. PSYCH: Appropriate affect. Alert and oriented to person, place and time. CLINICAL LABS: White blood cell count elevated 14,000 now down to 11,000, today 10,900 ASSESSMENT: 1. Ileus status post lysis of adhesions for bowel obstruction 2. Leukocytosis PLAN: 1. May need additional diagnostic studies such as small bowel follow through 2. Continue nasogastric tube Objective - Vital Signs Vital signs: Vital Signs Temp 98.4 F 10/02/20 14:00 Pulse 104 H 10/02/20 14:00 Resp 18 10/02/20 14:00 BP 155/96 10/02/20 14:00 Pulse Ox 96 10/02/20 14:00 Intake & Output 10/02/20 10/02/20 10/03/20 06:59 18:59 06:59 Intake Total 1560 1400 Output Total 1650 Balance 1560 -250 Intake: Intake, IV Titration 1560 1400 Amount Dextrose 5%-0.9% NaCl 1, 1560 1200 000 ml @ 130 mls/hr IV . Q7H42M [facility] Rx#:[id number] Piperacillin-Tazobactam 3 200 .375 gm In Sodium Chloride 0.9% 100 ml @ 25 mls/hr IVPB Q8HR [facility] Rx# :[id number] Output: Gastric Drainage 1650 Other: Voiding Method Toilet Urinal # Voids 1 4 # Bowel Movements 0 - Labs CBC & Chem 7: 10/02/20 05:56 10/02/20 05:56 Labs: Abnormal Lab Results - Last 24 Hours (Table) 10/02/20 10/02/20 10/02/20 Range/Units 05:56 05:56 06:24 WBC 10.90 H (4.50-10.00) X 10*3/uL RBC 3.89 L (4.40-5.60) X 10*6/uL Hgb 11.0 L (13.0-17.0) g/dL Hct 34.7 L (39.6-50.0) % MCHC 31.7 L (32.0-37.0) g/dL Plt Count 802 H (140-440) X 10*3/uL Anion Gap 13.50 H (4.00-12.00) mmol/L BUN 6.0 L (9.0-27.0) mg/dL BUN/Creatinine Ratio 6.00 L (12.00-20.00) Ratio POC Glucose (mg/dL) 114 H (75-99) mg/dL Total Protein 5.6 L (6.2-8.2) g/dL Albumin 3.50 L (3.80-4.90) g/dL 10/02/20 10/02/20 Range/Units 11:43 16:43 WBC (4.50-10.00) X 10*3/uL RBC (4.40-5.60) X 10*6/uL Hgb (13.0-17.0) g/dL Hct (39.6-50.0) % MCHC (32.0-37.0) g/dL Plt Count (140-440) X 10*3/uL Anion Gap (4.00-12.00) mmol/L BUN (9.0-27.0) mg/dL BUN/Creatinine Ratio (12.00-20.00) Ratio POC Glucose (mg/dL) 101 H 106 H (75-99) mg/dL Total Protein (6.2-8.2) g/dL Albumin (3.80-4.90) g/dL
[2020-10-02] MEDS: ALBUTEROL HFA INHALER INHALATION PRN (19:43)
[2020-10-03 01:02] LABS: Glucose,Whole Blood 95 mg/dL (75-99)
[2020-10-03] MEDS: INSULIN ASPART (NovoLOG) 100 UNIT/ML VIAL SQ SCH ×4 (01:45→16:21)
[2020-10-03] MEDS: HYDROmorphone 1 MG/ML 1 ML SYRINGE IVP PRN ×7 (02:36→23:46)
[2020-10-03 06:48] LABS: Glucose,Whole Blood 103 mg/dL (75-99)
[2020-10-03] MEDS: DEXTROSE 5%-0.9% NACL 1,000 ML IV SCH ×3 (08:09→16:44)
[2020-10-03] MEDS: PANTOPRAZOLE 40 MG/10 ML VIAL IV SCH (08:09)
[2020-10-03] MEDS: METOPROLOL TARTRATE 50 MG TAB PO SCH ×2 (08:09→23:52)
[2020-10-03] MEDS: PIPERACILLIN-TAZOBACTAM 3.375 GM in SODIUM CHLORIDE 0.9% 100 ML IVPB SCH ×3 (08:10→23:45)
[2020-10-03] MEDS: HEPARIN SODIUM,PORCINE/PF 5,000 UNIT/0.5 ML SYRINGE SQ SCH ×3 (08:10→23:46)
[2020-10-03] MEDS: lisinopriL 10 MG TAB PO SCH (08:18)
[2020-10-03] MEDS: hydroCHLOROthiazide 12.5 MG CAP PO SCH (08:18)
[2020-10-03] MEDS: MAGNESIUM OXIDE 400 MG TAB PO SCH (08:18)
[2020-10-03 11:44] LABS: Glucose,Whole Blood 107 mg/dL (75-99)
[2020-10-03 12:01] VITALS: BMI 38.1
[2020-10-03] MEDS: hydrALAZINE HCL 20 MG/ML 1 ML VIAL IVP PRN (14:34)
--- NOTE | 2020-10-03 14:57 | P.PN ---
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 Patient is currently residing in [facility]. Patient was admitted to the hospital from September 12 through September 27 which time he was treated for partial small bowel obstruction s/p partial omentectomy, lysis of adhesions and repair of incisional hernia 09/21 Dr. Fernandez. Patient was discharged back to the senior living on September 27. He states he's had a bowel movement yesterday and these had increasing abdominal pain and nausea and unable to eat. Patient was brought into [facility] emergency center for evaluation. Patient was found to be afebrile, 107, blood pressure 142/89, pulse ox 98% on room air. initial heart rate 121 with repeat 101, blood pressure 119/86, pulse ox 97% on room air. WBC 16.9, hemoglobin 12.8, platelet count 741. Sodium 133, potassium 4.4, chloride 96, CO2 27, BUN 15 creatinine 1.18. Blood sugar 94. Troponin negative. CK 43. Urinalysis yellow, protein 3+, negative for infection. CAT scan of the abdomen and pelvis with contrast revealed marked dilated small bowel and dilated stomach suggestive of mechanical mid small bowel obstruction. This could be due to some adhesions in the mid abdomen. Obstruction is new compared to old exam. There is minimal free air in the pelvis probably related to intestinal obstruction. Patient has been admitted and consult in place with Dr. Fernandez. 09/30: Patient has NG tube in place. He denies passing any gas and having a bowel movement. Patient has been seen by general surgery for ileus versus small bowel obstruction. Hurricaine spray added for irritation to mucous membranes from NG tube. 2 officers remain at the bedside. Patient has been afebrile, heart rate 106, blood pressure 136/92, pulse ox 97% on room air. Repeat blood work reveals WBC 14.3, hemoglobin 11.2 completed a couple center 73. Sodium 131, potassium 4.6, chloride 98, CO2 21, BUN 13 and creatinine 1.09. Blood sugars are running between 66 and 106. Patient is on IV fluids dextrose 5% half normal saline which will be changed to D5 0.9 normal saline due to low sodium. He is on heparin subcu for DVT prophylaxis and Protonix for GI prophylaxis. Patient also has morphine available and Zofran. 10/01: Patient has been afebrile, heart rate 99, blood pressure 160/88, pulse ox 98% on room air. Blood sugars running between 85 and 106. Patient complains of RUQ pain, he has not passed gas, no bowel movement. He has had large output from NG tube yellow-brown fluid. He also complains of some nausea and insomnia for which Benadryl will be added and patient will need to ask for a period patient has 2 officers in the room and they state that he walked in the hallway yesterday. Repeat blood work has been ordered. 10/02: Patient has been afebrile, heart rate 115, blood pressure 160/95, pulse ox 97% on room air. Patient started on IV Lopressor scheduled and until nothing by mouth status is discontinued. Blood sugars are running between 99 and 114. Patient states he slept well last night. He is not passing gas and is not having a bowel movement. NG tube remains in place with bile-colored fluid return. Patient is complaining of more right upper abdominal pain today. Zosyn added. Abdominal x-ray reveals no bowel obstruction. No large pneum operitoneum. Atelectasis in the lung bases. Some spirometry added. WBC 10.9, hemoglobin 11, platelet count 802. Electrolytes within normal limits. BUN 6 and creatinine 1. Blood sugars running between 99 and 114. 10/03 patient seen for follow-up today, he has still an NG tube, and draining bilious fluid, no fecaloid material noted, patient's x-ray shows no significant pattern for obstruction, patient is being seen by general surgery, who would decide later today on a small bowel follow-through, no complaints today of chest pain no palpitations, has some practice today, no bowel movements yet. Patient has no leg cramps leg pain, no new back pain, safety officers at bedside, no agitation noted, no new labs for review today, we will obtain one for tomorrow morning until IV Zosyn, last hemoglobin was 11.0, WBC count 10.9, no metabolic acidosis, and the hypokalemia noted. REVIEW OF SYSTEMS Constitutional: No fever, no chills, no night sweats. No weight change. No weakness, fatigue or lethargy. No daytime sleepiness. EENT: No headache. No blurred vision or double vision, no loss of vision. No loss of Hearing, no ringing in the ears, no dizziness. No nasal drainage or congestion. No epistaxis. No sore throat. Lungs: No shortness of breath, cough, no sputum production. No wheezing. Cardiovascular: No chest pain, no lower extremity edema. No palpitations. No paroxysmal nocturnal dyspnea. No orthopnea. No lightheadedness or dizziness. No syncopal episodes. Abdominal: Reports abdominal pain. Reports nausea, denies vomiting. No diarrhea. Reports constipation. No bloody or tarry stools. Reports loss of appetite. Genitourinary: No dysuria, increased frequency, urgency. No urinary retention. Musculoskeletal: No myalgias. No muscle weakness, no gait dysfunction, no frequent falls. No back pain. No neck pain. Integumentary: No wounds, no lesions. No rash or pruritus. No unusual bruising. No change in hair or nails. Neurologic: No aphasia. No facial droop. No change in mentation. No head injury. No headache. No paralysis. No paresthesia. Psychiatric: No depression. No anxiety. No mood swings. Endocrine: No abnormal blood sugars. No weight change. Objective - Vital Signs Vital signs: Vital Signs Temp 99.1 F 10/03/20 08:00 Pulse 105 H 10/03/20 08:00 Resp 16 10/03/20 08:00 BP 140/84 10/03/20 08:00 Pulse Ox 97 10/03/20 08:00 Intake & Output 10/02/20 10/03/20 10/03/20 18:59 06:59 18:59 Intake Total 1400 Output Total 1650 1600 Balance -250 -1600 Weight 120.656 kg Intake: Intake, IV Titration 1400 Amount Dextrose 5%-0.9% NaCl 1, 1200 000 ml @ 130 mls/hr IV . Q7H42M [facility] Rx#:[id number] Piperacillin-Tazobactam 3 200 .375 gm In Sodium Chloride 0.9% 100 ml @ 25 mls/hr IVPB Q8HR [facility] Rx# :[id number] Output: Gastric Drainage 1650 1600 Other: Voiding Method Toilet Toilet Urinal Urinal # Voids 4 1 - Constitutional General appearance: Present: cooperative, no acute distress - EENT Eyes: Present: anicteric sclerae, dentition normal, normal appearance ENT: Present: NA/AT, normal oropharynx - Respiratory Respiratory: bilateral: CTA, negative: diminished, dullness - Cardiovascular Rhythm: regular Heart sounds: normal: S1, S2 Abnormal Heart Sounds: Absent: systolic murmur, diastolic murmur, rub, S3 Gallop, S4 Gallop, click, other - Gastrointestinal General gastrointestinal: Present: absent bowel sounds, soft - Integumentary Integumentary: Present: decreased turgor, normal - Musculoskeletal Musculoskeletal: Present: gait normal, strength equal bilaterally - Psychiatric Psychiatric: Present: A&O x's 3, appropriate affect - Labs CBC & Chem 7: 10/02/20 05:56 10/02/20 05:56 Labs: Abnormal Lab Results - Last 24 Hours (Table) 10/02/20 10/03/20 10/03/20 Range/Units 16:43 06:45 11:42 POC Glucose (mg/dL) 106 H 103 H 107 H (75-99) mg/dL Assessment and Plan Plan: ASSESSMENT AND PLAN 1. Small bowel obstruction or ileus. Consult with Dr. Fernandez/general surgery appreciated. Patient is nothing by mouth and NG tube. IV fluids D5 0.9 normal saline at 130 mL/h. Zosyn added for right-sided peritonitis. NG tube, and Lasix, and by mouth Care Home surgery is probably going to decide later on small bowel follow-through, 2. Recent hospitalization for Partial small bowel obstruction s/p partial omentectomy, lysis of adhesions and repair of incisional hernia 09/21. 3. History of renal cell cancer, stable. 4. Hypertension. Hold oral medications: hydrochlorothiazide 12.5 mg daily, lisinopril 10 mg at bedtime, Lopressor 100 mg twice daily, continue hydralazine 10 mg IV push every 6 hours as needed for systolic blood pressure greater than 160 or diastolic blood pressure greater than 90. On metoprolol oral, 100 mg twice a day, and aNGT are clamped only for medication purposes. 5. Hyperlipidemia. Hold fenofibrate 160 mg at bedtime. 6. Diabetes mellitus type 2. Hold glipizide 10 mg daily, metformin 1000 mg twice daily, start NovoLog scale will be added. 7. Gastroesophageal reflux disease. Continue Protonix 40 mg daily IV. 8. Chronic back pain. 9. History of SVT. Continue Lopressor. 10. DVT prophylaxis. Heparin subcu. DISCHARGE PLAN Return To Care Home. 2 officers are at bedside.
[2020-10-03 16:21] LABS: Glucose,Whole Blood 95 mg/dL (75-99)
[2020-10-04 00:24] LABS: Glucose,Whole Blood 92 mg/dL (75-99)
[2020-10-04] MEDS: INSULIN ASPART (NovoLOG) 100 UNIT/ML VIAL SQ SCH ×4 (00:36→19:00)
[2020-10-04] MEDS: DEXTROSE 5%-0.9% NACL 1,000 ML IV SCH ×3 (02:08→19:00)
[2020-10-04] MEDS: HYDROmorphone 1 MG/ML 1 ML SYRINGE IVP PRN ×4 (04:00→15:18)
[2020-10-04] MEDS: HEPARIN SODIUM,PORCINE/PF 5,000 UNIT/0.5 ML SYRINGE SQ SCH ×2 (07:28→16:30)
[2020-10-04] MEDS: PIPERACILLIN-TAZOBACTAM 3.375 GM in SODIUM CHLORIDE 0.9% 100 ML IVPB SCH ×2 (07:28→16:28)
[2020-10-04] MEDS: PANTOPRAZOLE 40 MG/10 ML VIAL IV SCH (07:28)
[2020-10-04] MEDS: METOPROLOL TARTRATE 50 MG TAB PO SCH ×2 (07:29→21:59)
[2020-10-04] MEDS ORDERED: MVI, ADULT NO.4 WITH VIT K 10 ML, TRACE (CONC-1ML/DOSE) 1 ML, PARENTERAL ELECTROLYTES 2... IV SCH ×8 (08:00→16:00)
[2020-10-04 08:01] LABS: ALT 18 U/L (4-49); AST 25 U/L (17-59); African American GFR (CKD) 86 (>60 ml/min/1.73 sqM); Albumin 3.2 g/dL (3.5-5.0); Albumin/Globulin Ratio 1.3; Alkaline Phosphatase 75 U/L (38-126); Anion Gap 10 mmol/L; Blood Urea Nitrogen 9 mg/dL (9-20); Calcium 9.4 mg/dL (8.4-10.2); Carbon Dioxide 26 mmol/L (22-30); Chloride 105 mmol/L (98-107); Globulin 2.4 g/dL; Glucose 102 mg/dL (74-99); Magnesium 1.4 mg/dL (1.6-2.3); Non-African American GFR(CKD) 74 (>60 ml/min/1.73 sqM); Potassium 4.3 mmol/L (3.5-5.1); Sodium 141 mmol/L (137-145); Total Bilirubin <0.1 mg/dL (0.2-1.3); Total Protein 5.6 g/dL (6.3-8.2)
[2020-10-04] MEDS: hydrALAZINE HCL 20 MG/ML 1 ML VIAL IVP PRN ×2 (08:07→19:44)
[2020-10-04] MEDS: lisinopriL 10 MG TAB PO SCH (10:17)
[2020-10-04] MEDS: MAGNESIUM OXIDE 400 MG TAB PO SCH (10:17)
[2020-10-04] MEDS: hydroCHLOROthiazide 12.5 MG CAP PO SCH (10:17)
[2020-10-04 11:04] LABS: Basophils # (A) 0.05 X 10*3/uL (0.00-0.10); Basophils % (A) 0.5 %; HCT 35.4 % (39.6-50.0); HGB 11.1 g/dL (13.0-17.0); Lymphocytes # (A) 2.33 X 10*3/uL (0.90-5.00); Lymphocytes % (A) 23.9 %; MCH 28.7 pg (27.0-32.0); MCHC 31.4 g/dL (32.0-37.0); MCV 91.5 fL (80.0-97.0); Mean Platelet Volume 9.5 fL (9.5-12.2); Monocytes # (A) 0.75 X 10*3/uL (0.20-1.00); Monocytes % (A) 7.7 %; Neutrophils # (A) 6.46 X 10*3/uL (1.80-7.70); Neutrophils % (A) 66.5 %; Platelet Count 836 X 10*3/uL (140-440); RBC 3.87 X 10*6/uL (4.40-5.60); RDW 13.8 % (11.5-14.5); WBC 9.73 X 10*3/uL (4.50-10.00)
[2020-10-04 11:37] LABS: Glucose,Whole Blood 103 mg/dL (75-99)
--- NOTE | 2020-10-04 11:56 | P.PN ---
Progress Note - Text Progress Note Date: 10/03/20 The patient feels slightly bloated. He has had minimal flatus. On exam her vital signs are stable. Abdomen soft. Incisions clean and intact. Ileus versus partial small bowel charge. Patient will receive supportive care.
--- NOTE | 2020-10-04 11:57 | P.PN ---
Progress Note - Text Progress Note Date: 10/04/20 Patient reports that he had a large flatus and small bowel movement today. On exam her vital signs are stable. Abdomen soft. Incision clean and intact. Resolving partial small bowel charge. Patient will receive supportive care.
[2020-10-04] MEDS: HYDROcodone/APAP 15 ML SOLUTION PO PRN ×2 (12:19→19:44)
--- NOTE | 2020-10-04 14:30 | IR ---
PICC LINE PLACEMENT: HISTORY: Infection requiring long-term antibiotic therapy PROCEDURE: Ultrasound and fluoroscopic guidance of PICC line placement. COMPLICATIONS: None ANESTHESIA: 1. 1% Lidocaine locally. FINDINGS/TECHNIQUE: The procedure was explained to the patient. The risks, complications, benefits and alternatives were discussed and any questions were answered. Informed consent was obtained. The patient was placed supine on the fluoroscopic table and prepped and draped in the usual sterile fash ion. Utilizing a 21 gauge needle and sonographic and fluoroscopic guidance, access in the left basi lic vein was achieved and there is placement of a 0.018 guidewire. The vein is patent. A 4-F sheath was placed over the guidewire. The guidewire and dilator were removed and a 4-F. PICC line was plac ed through the sheath with the tip at the level of the SVC. The sheath was removed, the catheter was flushed and sutured into position. The patient was stable throughout the procedure and remained sta ble upon discharge from the Department of Radiology. The vein puncture was patent under ultrasound. A obregon scale image was obtained to document patency of the vein punctured. All elements of the maximal barrier technique were utilized. FLUOROSCOPY TIME: 0.2 minutes and 1 images submitted IMPRESSION: Successful PICC line placement under ultrasound and fluoroscopic guidance.
[2020-10-04] MEDS: DOCUSATE ORAL SOLN 100 MG/10 ML CUP PO PRN (15:13)
--- NOTE | 2020-10-04 15:58 | P.PN ---
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 Patient is currently residing in [facility]. Patient was admitted to the hospital from September 12 through September 27 which time he was treated for partial small bowel obstruction s/p partial omentectomy, lysis of adhesions and repair of incisional hernia 09/21 Dr. Fernandez. Patient was [facility] to the [facility] on September 27. He states he's had a bowel movement yesterday and these had increasing abdominal pain and nausea and unable to eat. Patient was brought into [facility] emergency center for evaluation. Patient was found to be afebrile, 107, blood pressure 142/89, pulse ox 98% on room air. initial heart rate 121 with repeat 101, blood pressure 119/86, pulse ox 97% on room air. WBC 16.9, hemoglobin 12.8, platelet count 741. Sodium 133, potassium 4.4, chloride 96, CO2 27, BUN 15 creatinine 1.18. Blood sugar 94. Troponin negative. CK 43. Urinalysis yellow, protein 3+, negative for infection. CAT scan of the abdomen and pelvis with contrast revealed marked dilated small bowel and dilated stomach suggestive of mechanical mid small bowel obstruction. This could be due to some adhesions in the mid abdomen. Obstruction is new compared to old exam. There is minimal free air in the pelvis probably related to intestinal obstruction. Patient has been admitted and consult in place with Dr. Fernandez. 09/30: Patient has NG tube in place. He denies passing any gas and having a bowel movement. Patient has been seen by general surgery for ileus versus small bowel obstruction. Hurricaine spray added for irritation to mucous membranes from NG tube. 2 officers remain at the bedside. Patient has been afebrile, heart rate 106, blood pressure 136/92, pulse ox 97% on room air. Repeat blood work reveals WBC 14.3, hemoglobin 11.2 completed a couple center 73. Sodium 131, potassium 4.6, chloride 98, CO2 21, BUN 13 and creatinine 1.09. Blood sugars are running between 66 and 106. Patient is on IV fluids dextrose 5% half normal saline which will be changed to D5 0.9 normal saline due to low sodium. He is on heparin subcu for DVT prophylaxis and Protonix for GI prophylaxis. Patient also has morphine available and Zofran. 10/01: Patient has been afebrile, heart rate 99, blood pressure 160/88, pulse ox 98% on room air. Blood sugars running between 85 and 106. Patient complains of RUQ pain, he has not passed gas, no bowel movement. He has had large output from NG tube yellow-brown fluid. He also complains of some nausea and insomnia for which Benadryl will be added and patient will need to ask for a period patient has 2 officers in the room and they state that he walked in the hallway yesterday. Repeat blood work has been ordered. 10/02: Patient has been afebrile, heart rate 115, blood pressure 160/95, pulse ox 97% on room air. Patient started on IV Lopressor scheduled and until nothing by mouth status is discontinued. Blood sugars are running between 99 and 114. Patient states he slept well last night. He is not passing gas and is not having a bowel movement. NG tube remains in place with bile-colored fluid return. Patient is complaining of more right upper abdominal pain today. Zosyn added. Abdominal x-ray reveals no bowel obstruction. No large pneum operitoneum. Atelectasis in the lung bases. Some spirometry added. WBC 10.9, hemoglobin 11, platelet count 802. Electrolytes within normal limits. BUN 6 and creatinine 1. Blood sugars running between 99 and 114. 10/03 patient seen for follow-up today, he has still an NG tube, and draining bilious fluid, no fecaloid material noted, patient's x-ray shows no significant pattern for obstruction, patient is being seen by general surgery, who would decide later today on a small bowel follow-through, no complaints today of chest pain no palpitations, has some practice today, no bowel movements yet. Patient has no leg cramps leg pain, no new back pain, safety officers at bedside, no agitation noted, no new labs for review today, we will obtain one for tomorrow morning until IV Zosyn, last hemoglobin was 11.0, WBC count 10.9, no metabolic acidosis, and the hypokalemia noted. 10/04 the patient is better comfortable today, still with an NG tube, and draining bilious fluid, has flat this day, clinical exam shows normal bowel sounds, no bowel movement yet. We're going to start TPN today, with PICC line placement, consult with dietitian lab soles hemoglobin 11.1, WBC 9.7, platelet 836, glucose 103, creatinine 1.15, potassium 4.3, sodium 141 REVIEW OF SYSTEMS Constitutional: No fever, no chills, no night sweats. No weight change. No weakness, fatigue or lethargy. No daytime sleepiness. EENT: No headache. No blurred vision or double vision, no loss of vision. No loss of Hearing, no ringing in the ears, no dizziness. No nasal drainage or congestion. No epistaxis. No sore throat. Lungs: No shortness of breath, cough, no sputum production. No wheezing. Cardiovascular: No chest pain, no lower extremity edema. No palpitations. No paroxysmal nocturnal dyspnea. No orthopnea. No lightheadedness or dizziness. No syncopal episodes. Abdominal: Reports abdominal pain. Reports nausea, denies vomiting. No diarrhea. Reports constipation. No bloody or tarry stools. Reports loss of appetite. Genitourinary: No dysuria, increased frequency, urgency. No urinary retention. Musculoskeletal: No myalgias. No muscle weakness, no gait dysfunction, no frequent falls. No back pain. No neck pain. Integumentary: No wounds, no lesions. No rash or pruritus. No unusual bruising. No change in hair or nails. Neurologic: No aphasia. No facial droop. No change in mentation. No head injury. No headache. No paralysis. No paresthesia. Psychiatric: No depression. No anxiety. No mood swings. Endocrine: No abnormal blood sugars. No weight change. Objective - Vital Signs Vital signs: Vital Signs Temp 98.3 F 10/04/20 14:00 Pulse 96 10/04/20 14:00 Resp 16 10/04/20 14:00 BP 154/92 10/04/20 14:00 Pulse Ox 95 10/04/20 14:00 Intake & Output 10/03/20 10/04/20 10/04/20 18:59 06:59 18:59 Intake Total 1080 1060 Output Total 1500 Balance 1080 -440 Weight 120.656 kg Intake: Intake, IV Titration 820 Amount Dextrose 5%-0.9% NaCl 1, 720 000 ml @ 130 mls/hr IV . Q7H42M [facility] Rx#:[id number] Piperacillin-Tazobactam 3 100 .375 gm In Sodium Chloride 0.9% 100 ml @ 25 mls/hr IVPB Q8HR [facility] Rx# :[id number] Oral 1080 240 Output: Gastric Drainage 1500 Other: Voiding Method Toilet Toilet Urinal Urinal # Voids 3 2 - Constitutional General appearance: Present: cooperative, no acute distress - EENT Eyes: Present: EOMI, PERRLA, dentition normal, normal appearance ENT: Present: NA/AT, normal oropharynx - Neck Neck: Present: normal ROM - Respiratory Respiratory: bilateral: CTA, negative: diminished, dullness - Cardiovascular Rhythm: regular - Gastrointestinal General gastrointestinal: Present: normal bowel sounds, tenderness (ruq) - Integumentary Integumentary: Present: normal, normal turgor - Neurologic Neurologic: Present: CNII-XII intact - Musculoskeletal Musculoskeletal: Present: strength equal bilaterally - Psychiatric Psychiatric: Present: A&O x's 3, appropriate affect, intact judgment & insight - Labs CBC & Chem 7: 10/04/20 07:05 10/04/20 07:05 Labs: Abnormal Lab Results - Last 24 Hours (Table) 10/04/20 10/04/20 10/04/20 Range/Units 07:05 07:05 11:35 RBC 3.87 L (4.40-5.60) X 10*6/uL Hgb 11.1 L (13.0-17.0) g/dL Hct 35.4 L (39.6-50.0) % MCHC 31.4 L (32.0-37.0) g/dL Plt Count 836 H (140-440) X 10*3/uL Glucose 102 H (74-99) mg/dL POC Glucose (mg/dL) 103 H (75-99) mg/dL Phosphorus 5.0 H (2.5-4.5) mg/dL Magnesium 1.4 L (1.6-2.3) mg/dL Total Bilirubin <0.1 L (0.2-1.3) mg/dL Total Protein 5.6 L (6.3-8.2) g/dL Albumin 3.2 L (3.5-5.0) g/dL Assessment and Plan Plan: ASSESSMENT AND PLAN 1. Small bowel obstruction or ileus. Consult with Dr. Fernandez/general surgery appreciated. Patient is nothing by mouth and NG tube. IV fluids D5 0.9 normal saline at 130 mL/h. Zosyn added for right-sided peritonitis. NG tube, and Lasix, and by mouth [facility] surgery is probably going to decide later on small bowel follow-through, start PPN thru [facility] today 10/04 dietiian consult 2. Recent hospitalization for Partial small bowel obstruction s/p partial omentectomy, lysis of adhesions and repair of incisional hernia 09/21. 3. History of renal cell cancer, stable. 4. Hypertension. Hold oral medications: hydrochlorothiazide 12.5 mg daily, lisinopril 10 mg at bedtime, Lopressor 100 mg twice daily, continue hydralazine 10 mg IV push every 6 hours as needed for systolic blood pressure greater than 160 or diastolic blood pressure greater than 90. On metoprolol oral, 100 mg twice a day, and aNGT are clamped only for medication purposes. 5. Hyperlipidemia. Hold fenofibrate 160 mg at bedtime. 6. Diabetes mellitus type 2. Hold glipizide 10 mg daily, metformin 1000 mg twice daily, start NovoLog scale will be added. 7. Gastroesophageal reflux disease. Continue Protonix 40 mg daily IV. 8. Chronic back pain. 9. History of SVT. Continue Lopressor. 10. DVT prophylaxis. Heparin subcu. DISCHARGE PLAN Return To [facility]. 2 officers are at bedside.
[2020-10-04] MEDS: FAT EMULSION 20% 500 ML in EMPTY BAG 1 BAG IV SCH (16:28)
[2020-10-04 16:43] LABS: Glucose,Whole Blood 89 mg/dL (75-99)
[2020-10-05 00:02] LABS: Glucose,Whole Blood 109 mg/dL (75-99)
[2020-10-05] MEDS: diphenhydrAMINE 50 MG/ML 1 ML VIAL IVP PRN (00:43)
[2020-10-05] MEDS: HEPARIN SODIUM,PORCINE/PF 5,000 UNIT/0.5 ML SYRINGE SQ SCH ×3 (00:46→16:11)
[2020-10-05] MEDS: PIPERACILLIN-TAZOBACTAM 3.375 GM in SODIUM CHLORIDE 0.9% 100 ML IVPB SCH ×3 (00:47→16:11)
[2020-10-05] MEDS: INSULIN ASPART (NovoLOG) 100 UNIT/ML VIAL SQ SCH ×4 (00:47→19:00)
[2020-10-05] MEDS: DEXTROSE 5%-0.9% NACL 1,000 ML IV SCH ×3 (02:18→16:11)
[2020-10-05] MEDS: HYDROcodone/APAP 15 ML SOLUTION PO PRN (02:41)
[2020-10-05 05:50] LABS: Glucose,Whole Blood 117 mg/dL (75-99)
[2020-10-05 06:20] LABS: ALT 23 U/L (4-49); AST 29 U/L (17-59); African American GFR (CKD) 88 (>60 ml/min/1.73 sqM); Albumin 3.1 g/dL (3.5-5.0); Albumin/Globulin Ratio 1.2; Alkaline Phosphatase 85 U/L (38-126); Anion Gap 8 mmol/L; Blood Urea Nitrogen 10 mg/dL (9-20); Calcium 9.5 mg/dL (8.4-10.2); Carbon Dioxide 26 mmol/L (22-30); Chloride 105 mmol/L (98-107); Globulin 2.5 g/dL; Glucose 118 mg/dL (74-99); Magnesium 1.4 mg/dL (1.6-2.3); Non-African American GFR(CKD) 77 (>60 ml/min/1.73 sqM); Phosphorus 4.2 mg/dL (2.5-4.5); Sodium 139 mmol/L (137-145); Total Bilirubin 0.1 mg/dL (0.2-1.3); Total Protein 5.6 g/dL (6.3-8.2)
[2020-10-05] MEDS: MAGNESIUM OXIDE 400 MG TAB PO SCH (07:52)
[2020-10-05] MEDS: lisinopriL 10 MG TAB PO SCH (07:52)
[2020-10-05] MEDS: METOPROLOL TARTRATE 50 MG TAB PO SCH ×2 (07:52→20:14)
[2020-10-05] MEDS: hydroCHLOROthiazide 12.5 MG CAP PO SCH (07:52)
[2020-10-05] MEDS: PANTOPRAZOLE 40 MG/10 ML VIAL IV SCH (07:53)
[2020-10-05] MEDS: HYDROmorphone 1 MG/ML 1 ML SYRINGE IVP PRN ×5 (08:11→23:05)
[2020-10-05 11:22] LABS: Glucose,Whole Blood 113 mg/dL (75-99)
[2020-10-05] MEDS: MAGNESIUM SULFATE-D5W PMX 1 GM in DEXTROSE/WATER 1 100ML.BAG IVPB SCH ×3 (12:18→14:45)
--- NOTE | 2020-10-05 13:14 | P.PN ---
Progress Note - Text Progress Note Date: 10/05/20 Patient has had flatus. He still has relatively high NG tube output. She had 800 mL output the last shift through his NG tube. On exam her vital signs are stable. Abdomen soft. Resolving ileus. Patient will continue receive NG tube decompression. Despite clear liquids starting tomorrow
[2020-10-05] MEDS: DOCUSATE ORAL SOLN 100 MG/10 ML CUP PO PRN (13:29)
--- NOTE | 2020-10-05 13:46 | P.PN ---
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 Patient is currently residing in [facility]. Patient was admitted to the hospital from September 12 through September 27 which time he was treated for partial small bowel obstruction s/p partial omentectomy, lysis of adhesions and repair of incisional hernia 09/21 Dr. Fernandez. Patient was [facility] to [facility] on September 27. He states he's had a bowel movement yesterday and these had increasing abdominal pain and nausea and unable to eat. Patient was brought into [facility] emergency center for evaluation. Patient was found to be afebrile, 107, blood pressure 142/89, pulse ox 98% on room air. initial heart rate 121 with repeat 101, blood pressure 119/86, pulse ox 97% on room air. WBC 16.9, hemoglobin 12.8, platelet count 741. Sodium 133, potassium 4.4, chloride 96, CO2 27, BUN 15 creatinine 1.18. Blood sugar 94. Troponin negative. CK 43. Urinalysis yellow, protein 3+, negative for infection. CAT scan of the abdomen and pelvis with contrast revealed marked dilated small bowel and dilated stomach suggestive of mechanical mid small bowel obstruction. This could be due to some adhesions in the mid abdomen. Obstruction is new compared to old exam. There is minimal free air in the pelvis probably related to intestinal obstruction. Patient has been admitted and consult in place with Dr. Fernandez. 09/30: Patient has NG tube in place. He denies passing any gas and having a bowel movement. Patient has been seen by general surgery for ileus versus small bowel obstruction. Hurricaine spray added for irritation to mucous membranes from NG tube. 2 officers remain at the bedside. Patient has been afebrile, heart rate 106, blood pressure 136/92, pulse ox 97% on room air. Repeat blood work reveals WBC 14.3, hemoglobin 11.2 completed a couple center 73. Sodium 131, potassium 4.6, chloride 98, CO2 21, BUN 13 and creatinine 1.09. Blood sugars are running between 66 and 106. Patient is on IV fluids dextrose 5% half normal saline which will be changed to D5 0.9 normal saline due to low sodium. He is on heparin subcu for DVT prophylaxis and Protonix for GI prophylaxis. Patient also has morphine available and Zofran. 10/01: Patient has been afebrile, heart rate 99, blood pressure 160/88, pulse ox 98% on room air. Blood sugars running between 85 and 106. Patient complains of RUQ pain, he has not passed gas, no bowel movement. He has had large output from NG tube yellow-brown fluid. He also complains of some nausea and insomnia for which Benadryl will be added and patient will need to ask for a period patient has 2 officers in the room and they state that he walked in the hallway yesterday. Repeat blood work has been ordered. 10/02: Patient has been afebrile, heart rate 115, blood pressure 160/95, pulse ox 97% on room air. Patient started on IV Lopressor scheduled and until nothing by mouth status is discontinued. Blood sugars are running between 99 and 114. Patient states he slept well last night. He is not passing gas and is not having a bowel movement. NG tube remains in place with bile-colored fluid return. Patient is complaining of more right upper abdominal pain today. Zosyn added. Abdominal x-ray reveals no bowel obstruction. No large pneum operitoneum. Atelectasis in the lung bases. Some spirometry added. WBC 10.9, hemoglobin 11, platelet count 802. Electrolytes within normal limits. BUN 6 and creatinine 1. Blood sugars running between 99 and 114. 10/03 patient seen for follow-up today, he has still an NG tube, and draining bilious fluid, no fecaloid material noted, patient's x-ray shows no significant pattern for obstruction, patient is being seen by general surgery, who would decide later today on a small bowel follow-through, no complaints today of chest pain no palpitations, has some practice today, no bowel movements yet. Patient has no leg cramps leg pain, no new back pain, safety officers at bedside, no agitation noted, no new labs for review today, we will obtain one for tomorrow morning until IV Zosyn, last hemoglobin was 11.0, WBC count 10.9, no metabolic acidosis, and the hypokalemia noted. 10/04 the patient is better comfortable today, still with an NG tube, and draining bilious fluid, has flat this day, clinical exam shows normal bowel sounds, no bowel movement yet. We're going to start TPN today, with PICC line placement, consult with dietitian lab soles hemoglobin 11.1, WBC 9.7, platelet 836, glucose 103, creatinine 1.15, potassium 4.3, sodium 141 10/05 patient is still nothing by mouth, NG tube, general surgery has seen the patient, has improvement on the ileus clinically, flat is present, no stools, they might start on clear liquid diet today, TPN is infusing, no new difficulties. No chest pain no shortness breath, no edema. REVIEW OF SYSTEMS Constitutional: No fever, no chills, no night sweats. No weight change. No weakness, fatigue or lethargy. No daytime sleepiness. EENT: No headache. No blurred vision or double vision, no loss of vision. No loss of Hearing, no ringing in the ears, no dizziness. No nasal drainage or congestion. No epistaxis. No sore throat. Lungs: No shortness of breath, cough, no sputum production. No wheezing. Cardiovascular: No chest pain, no lower extremity edema. No palpitations. No paroxysmal nocturnal dyspnea. No orthopnea. No lightheadedness or dizziness. No syncopal episodes. Abdominal: Reports abdominal pain. Reports nausea, denies vomiting. No diarrhea. Reports constipation. No bloody or tarry stools. Reports loss of appetite. Genitourinary: No dysuria, increased frequency, urgency. No urinary retention. Musculoskeletal: No myalgias. No muscle weakness, no gait dysfunction, no frequent falls. No back pain. No neck pain. Integumentary: No wounds, no lesions. No rash or pruritus. No unusual bruising. No change in hair or nails. Neurologic: No aphasia. No facial droop. No change in mentation. No head injury. No headache. No paralysis. No paresthesia. Psychiatric: No depression. No anxiety. No mood swings. Endocrine: No abnormal blood sugars. No weight change. Objective - Vital Signs Vital signs: Vital Signs Temp 98.2 F 10/05/20 07:24 Pulse 112 H 10/05/20 07:24 Resp 18 10/05/20 07:24 BP 160/87 10/05/20 07:24 Pulse Ox 98 10/05/20 07:24 Intake & Output 10/04/20 10/05/20 10/05/20 18:59 06:59 18:59 Intake Total 1500 Output Total 700 800 Balance 800 -800 Intake: Intake, IV Titration 1500 Amount Dextrose 5%-0.9% NaCl 1, 1300 000 ml @ 130 mls/hr IV . Q7H42M [facility] Rx#:[id number] Piperacillin-Tazobactam 3 200 .375 gm In Sodium Chloride 0.9% 100 ml @ 25 mls/hr IVPB Q8HR [facility] Rx# :[id number] Output: Gastric Drainage 700 800 Other: Voiding Method Toilet Toilet Urinal Urinal # Voids 2 1 - Constitutional General appearance: Present: cooperative, no acute distress, obese - EENT Eyes: Present: EOMI, PERRLA - Neck Neck: Present: normal ROM - Respiratory Respiratory: bilateral: CTA, negative: diminished, dullness - Cardiovascular Rhythm: regular Heart sounds: normal: S1, S2 - Gastrointestinal General gastrointestinal: Present: decreased bowel sounds, soft - Integumentary Integumentary: Present: normal, normal turgor - Neurologic Neurologic: Present: CNII-XII intact - Musculoskeletal Musculoskeletal: Present: strength equal bilaterally - Labs CBC & Chem 7: 10/04/20 07:05 10/05/20 05:23 Labs: Abnormal Lab Results - Last 24 Hours (Table) 10/05/20 10/05/20 10/05/20 Range/Units 00:00 05:23 05:47 Glucose 118 H (74-99) mg/dL POC Glucose (mg/dL) 109 H 117 H (75-99) mg/dL Magnesium 1.4 L (1.6-2.3) mg/dL Total Bilirubin 0.1 L (0.2-1.3) mg/dL Total Protein 5.6 L (6.3-8.2) g/dL Albumin 3.1 L (3.5-5.0) g/dL 10/05/20 Range/Units 11:21 Glucose (74-99) mg/dL POC Glucose (mg/dL) 113 H (75-99) mg/dL Magnesium (1.6-2.3) mg/dL Total Bilirubin (0.2-1.3) mg/dL Total Protein (6.3-8.2) g/dL Albumin (3.5-5.0) g/dL Assessment and Plan Plan: ASSESSMENT AND PLAN 1. Small bowel obstruction or ileus. Consult with Dr. Fernandez/general surgery appreciated. Patient is nothing by mouth and NG tube. IV fluids D5 0.9 normal saline at 130 mL/h. Zosyn added for right-sided peritonitis. NG tube, and Lasix, and by mouth Longterm surgery is probably going to decide later on small bowel follow-through, start PPN thru [facility] today 10/04 dietiian consult 2. Recent hospitalization for Partial small bowel obstruction s/p partial omentectomy, lysis of adhesions and repair of incisional hernia 09/21. 3. History of renal cell cancer, stable. 4. Hypertension. Hold oral medications: hydrochlorothiazide 12.5 mg daily, lisinopril 10 mg at bedtime, Lopressor 100 mg twice daily, continue hydralazine 10 mg IV push every 6 hours as needed for systolic blood pressure greater than 160 or diastolic blood pressure greater than 90. On metoprolol oral, 100 mg twice a day, and aNGT are clamped only for medication purposes. 5. Hyperlipidemia. Hold fenofibrate 160 mg at bedtime. 6. Diabetes mellitus type 2. Hold glipizide 10 mg daily, metformin 1000 mg twice daily, start NovoLog scale will be added. 7. Gastroesophageal reflux disease. Continue Protonix 40 mg daily IV. 8. Chronic back pain. 9. History of SVT. Continue Lopressor. 10. DVT prophylaxis. Heparin subcu. DISCHARGE PLAN Return To [facility]. 2 officers are at bedside.
[2020-10-05 18:18] LABS: Glucose,Whole Blood 101 mg/dL (75-99)
[2020-10-05] MEDS: BENZOCAINE SPRAY 1 CAN MUCOUS MEM PRN (20:31)
[2020-10-05 23:57] LABS: Glucose,Whole Blood 101 mg/dL (75-99)
[2020-10-06] MEDS: PIPERACILLIN-TAZOBACTAM 3.375 GM in SODIUM CHLORIDE 0.9% 100 ML IVPB SCH ×3 (00:20→17:41)
[2020-10-06] MEDS: HEPARIN SODIUM,PORCINE/PF 5,000 UNIT/0.5 ML SYRINGE SQ SCH ×4 (00:21→23:29)
[2020-10-06] MEDS: HYDROmorphone 1 MG/ML 1 ML SYRINGE IVP PRN ×8 (02:17→23:29)
[2020-10-06] MEDS: BENZOCAINE SPRAY 1 CAN MUCOUS MEM PRN (02:19)
[2020-10-06] MEDS: MVI, ADULT NO.4 WITH VIT K 10 ML, TRACE (CONC-1ML/DOSE) 1 ML, PARENTERAL ELECTROLYTES 2... IV SCH ×10 (02:21→15:41)
[2020-10-06] MEDS: DEXTROSE 5%-0.9% NACL 1,000 ML IV SCH ×4 (02:33→21:46)
[2020-10-06] MEDS: INSULIN ASPART (NovoLOG) 100 UNIT/ML VIAL SQ SCH ×4 (03:38→18:43)
[2020-10-06 06:01] LABS: Glucose,Whole Blood 96 mg/dL (75-99)
[2020-10-06 06:51] LABS: ALT 31 U/L (4-49); AST 41 U/L (17-59); African American GFR (CKD) >90 (>60 ml/min/1.73 sqM); Albumin 3.2 g/dL (3.5-5.0); Albumin/Globulin Ratio 1.2; Alkaline Phosphatase 85 U/L (38-126); Anion Gap 8 mmol/L; Blood Urea Nitrogen 10 mg/dL (9-20); Calcium 9.3 mg/dL (8.4-10.2); Carbon Dioxide 24 mmol/L (22-30); Chloride 101 mmol/L (98-107); Globulin 2.6 g/dL; Glucose 111 mg/dL (74-99); Magnesium 1.7 mg/dL (1.6-2.3); Non-African American GFR(CKD) 81 (>60 ml/min/1.73 sqM); Phosphorus 5.3 mg/dL (2.5-4.5); Potassium 4.2 mmol/L (3.5-5.1); Sodium 133 mmol/L (137-145); Total Bilirubin 0.2 mg/dL (0.2-1.3); Total Protein 5.8 g/dL (6.3-8.2)
[2020-10-06] MEDS: PANTOPRAZOLE 40 MG/10 ML VIAL IV SCH (07:38)
[2020-10-06] MEDS: hydroCHLOROthiazide 12.5 MG CAP PO SCH (07:39)
[2020-10-06] MEDS: lisinopriL 10 MG TAB PO SCH (07:39)
[2020-10-06] MEDS: METOPROLOL TARTRATE 50 MG TAB PO SCH ×2 (07:39→21:37)
[2020-10-06] MEDS: MAGNESIUM OXIDE 400 MG TAB PO SCH (07:39)
[2020-10-06] MEDS: MAGNESIUM SULFATE-D5W PMX 1 GM in DEXTROSE/WATER 1 100ML.BAG IVPB SCH (10:48)
--- NOTE | 2020-10-06 12:31 | P.PN ---
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 Patient is currently residing in [facility]. Patient was admitted to the hospital from September 12 through September 27 which time he was treated for partial small bowel obstruction s/p partial omentectomy, lysis of adhesions and repair of incisional hernia 09/21 Dr. Fernandez. Patient was discharged back to the [facility] on September 27. He states he's had a bowel movement yesterday and these had increasing abdominal pain and nausea and unable to eat. Patient was brought into [facility] emergency center for evaluation. Patient was found to be afebrile, 107, blood pressure 142/89, pulse ox 98% on room air. initial heart rate 121 with repeat 101, blood pressure 119/86, pulse ox 97% on room air. WBC 16.9, hemoglobin 12.8, platelet count 741. Sodium 133, potassium 4.4, chloride 96, CO2 27, BUN 15 creatinine 1.18. Blood sugar 94. Troponin negative. CK 43. Urinalysis yellow, protein 3+, negative for infection. CAT scan of the abdomen and pelvis with contrast revealed marked dilated small bowel and dilated stomach suggestive of mechanical mid small bowel obstruction. This could be due to some adhesions in the mid abdomen. Obstruction is new compared to old exam. There is minimal free air in the pelvis probably related to intestinal obstruction. Patient has been admitted and consult in place with Dr. Fernandez. 09/30: Patient has NG tube in place. He denies passing any gas and having a bowel movement. Patient has been seen by general surgery for ileus versus small bowel obstruction. Hurricaine spray added for irritation to mucous membranes from NG tube. 2 officers remain at the bedside. Patient has been afebrile, heart rate 106, blood pressure 136/92, pulse ox 97% on room air. Repeat blood work reveals WBC 14.3, hemoglobin 11.2 completed a couple center 73. Sodium 131, potassium 4.6, chloride 98, CO2 21, BUN 13 and creatinine 1.09. Blood sugars are running between 66 and 106. Patient is on IV fluids dextrose 5% half normal saline which will be changed to D5 0.9 normal saline due to low sodium. He is on heparin subcu for DVT prophylaxis and Protonix for GI prophylaxis. Patient also has morphine available and Zofran. 10/01: Patient has been afebrile, heart rate 99, blood pressure 160/88, pulse ox 98% on room air. Blood sugars running between 85 and 106. Patient complains of RUQ pain, he has not passed gas, no bowel movement. He has had large output from NG tube yellow-brown fluid. He also complains of some nausea and insomnia for which Benadryl will be added and patient will need to ask for a period patient has 2 officers in the room and they state that he walked in the hallway yesterday. Repeat blood work has been ordered. 10/02: Patient has been afebrile, heart rate 115, blood pressure 160/95, pulse ox 97% on room air. Patient started on IV Lopressor scheduled and until nothing by mouth status is discontinued. Blood sugars are running between 99 and 114. Patient states he slept well last night. He is not passing gas and is not having a bowel movement. NG tube remains in place with bile-colored fluid return. Patient is complaining of more right upper abdominal pain today. Zosyn added. Abdominal x-ray reveals no bowel obstruction. No large pneum operitoneum. Atelectasis in the lung bases. Some spirometry added. WBC 10.9, hemoglobin 11, platelet count 802. Electrolytes within normal limits. BUN 6 and creatinine 1. Blood sugars running between 99 and 114. 10/03 patient seen for follow-up today, he has still an NG tube, and draining bilious fluid, no fecaloid material noted, patient's x-ray shows no significant pattern for obstruction, patient is being seen by general surgery, who would decide later today on a small bowel follow-through, no complaints today of chest pain no palpitations, has some practice today, no bowel movements yet. Patient has no leg cramps leg pain, no new back pain, safety officers at bedside, no agitation noted, no new labs for review today, we will obtain one for tomorrow morning until IV Zosyn, last hemoglobin was 11.0, WBC count 10.9, no metabolic acidosis, and the hypokalemia noted. 10/04 the patient is better comfortable today, still with an NG tube, and draining bilious fluid, has flat this day, clinical exam shows normal bowel sounds, no bowel movement yet. We're going to start TPN today, with PICC line placement, consult with dietitian lab soles hemoglobin 11.1, WBC 9.7, platelet 836, glucose 103, creatinine 1.15, potassium 4.3, sodium 141 10/05 patient is still nothing by mouth, NG tube, general surgery has seen the patient, has improvement on the ileus clinically, flat is present, no stools, they might start on clear liquid diet today, TPN is infusing, no new difficulties. No chest pain no shortness breath, no edema. 19, patient has left practice today, no bowel movement, has been ambulating, NG tube is in place. Patient's currently nothing by mouth, still with TPN infus ions. Patient has GERD symptoms, start Maalox plus, x-rays of the abdomen to be done today, vitals are stable, no fever, antibiotics to infusing. Security officers, at bedside for vigilance stable REVIEW OF SYSTEMS Constitutional: No fever, no chills, no night sweats. No weight change. No weakness, fatigue or lethargy. No daytime sleepiness. EENT: No headache. No blurred vision or double vision, no loss of vision. No loss of Hearing, no ringing in the ears, no dizziness. No nasal drainage or congestion. No epistaxis. No sore throat. Lungs: No shortness of breath, cough, no sputum production. No wheezing. Cardiovascular: No chest pain, no lower extremity edema. No palpitations. No paroxysmal nocturnal dyspnea. No orthopnea. No lightheadedness or dizziness. No syncopal episodes. Abdominal: Reports abdominal pain. Reports nausea, denies vomiting. No diarrhea. Reports constipation. No bloody or tarry stools. Reports loss of appetite. Genitourinary: No dysuria, increased frequency, urgency. No urinary retention. Musculoskeletal: No myalgias. No muscle weakness, no gait dysfunction, no frequent falls. No back pain. No neck pain. Integumentary: No wounds, no lesions. No rash or pruritus. No unusual bruising. No change in hair or nails. Neurologic: No aphasia. No facial droop. No change in mentation. No head injury. No headache. No paralysis. No paresthesia. Psychiatric: No depression. No anxiety. No mood swings. Endocrine: No abnormal blood sugars. No weight change. Objective - Vital Signs Vital signs: Vital Signs Temp 97.8 F 10/06/20 07:07 Pulse 100 10/06/20 07:07 Resp 16 10/06/20 07:07 BP 128/85 10/06/20 07:07 Pulse Ox 96 10/06/20 07:07 Intake & Output 10/05/20 10/06/20 10/06/20 18:59 06:59 18:59 Output Total 800 1650 Balance -800 -1650 Weight 120.656 kg Output: Gastric Drainage 800 1650 Other: Voiding Method Toilet Toilet Urinal Urinal # Voids 3 1 - Constitutional General appearance: Present: cooperative, no acute distress - EENT Eyes: Present: EOMI, PERRLA, photophobia - Gastrointestinal General gastrointestinal: Present: normal bowel sounds, soft, tenderness (Right upper quadrant) - Integumentary Integumentary: Present: decreased turgor, normal - Neurologic Neurologic: Present: CNII-XII intact - Musculoskeletal Musculoskeletal: Present: strength equal bilaterally - Psychiatric Psychiatric: Present: A&O x's 3, appropriate affect - Labs CBC & Chem 7: 10/04/20 07:05 10/06/20 06:00 Labs: Abnormal Lab Results - Last 24 Hours (Table) 10/05/20 10/05/20 10/05/20 Range/Units 05:23 18:18 23:55 Sodium (137-145) mmol/L Glucose (74-99) mg/dL POC Glucose (mg/dL) 101 H 101 H (75-99) mg/dL Phosphorus (2.5-4.5) mg/dL Total Protein (6.3-8.2) g/dL Albumin (3.5-5.0) g/dL Prealbumin 13.0 L (18.0-42.0) mg/dL 10/06/20 Range/Units 06:00 Sodium 133 L (137-145) mmol/L Glucose 111 H (74-99) mg/dL POC Glucose (mg/dL) (75-99) mg/dL Phosphorus 5.3 H (2.5-4.5) mg/dL Total Protein 5.8 L (6.3-8.2) g/dL Albumin 3.2 L (3.5-5.0) g/dL Prealbumin (18.0-42.0) mg/dL Assessment and Plan Plan: ASSESSMENT AND PLAN 1. Small bowel obstruction or ileus. Consult with Dr. Fernandez/general surgery appreciated. Patient is nothing by mouth and NG tube. IV fluids D5 0.9 normal saline at 130 mL/h. Zosyn added for right-sided peritonitis. NG tube, and Lasix, and by mouth [facility] surgery is probably going to decide later on small bowel follow-through, start PPN thru [facility] today 10/04 dietiian consult 2. Recent hospitalization for Partial small bowel obstruction s/p partial omentectomy, lysis of adhesions and repair of incisional hernia 09/21. 3. History of renal cell cancer, stable. 4. Hypertension. Hold oral medications: hydrochlorothiazide 12.5 mg daily, lis inopril 10 mg at bedtime, Lopressor 100 mg twice daily, continue hydralazine 10 mg IV push every 6 hours as needed for systolic blood pressure greater than 160 or diastolic blood pressure greater than 90. On metoprolol oral, 100 mg twice a day, and aNGT are clamped only for medication purposes. 5. Hyperlipidemia. Hold fenofibrate 160 mg at bedtime. 6. Diabetes mellitus type 2. Hold glipizide 10 mg daily, metformin 1000 mg twice daily, start NovoLog scale will be added. 7. Gastroesophageal reflux disease. Continue Protonix 40 mg daily IV. 8. Chronic back pain. 9. History of SVT. Continue Lopressor. 10. DVT prophylaxis. Heparin subcu. DISCHARGE PLAN Return To [facility]. 2 officers are at bedside.
[2020-10-06 13:01] LABS: Glucose,Whole Blood 115 mg/dL (75-99)
--- NOTE | 2020-10-06 16:23 | XR ---
EXAMINATION TYPE: XR abdomen 2V DATE OF EXAM: 10/06/2020 CLINICAL DATA: 49 year-old male small bowel obstruction, [facility] COMPARISON: 10/02/2020 FINDINGS: No evidence for free intraperitoneal air. The NG tube is short, side hole located above the GE juncti on. Multiple surgical clips throughout the abdomen. Some midline skin brenna are also noted. Dilated small bowel loops measure up to 3.8 cm with air-fluid levels. This to have slightly increased from p rior exam. Small amount of scattered colonic air is present. IMPRESSION: 1. Consider advancing the NG tube so that the side hole enters the stomach. 2. Air fluid levels with dilated small bowel loops measuring up to 3.8 cm. This is slightly increased compared to 10/02/2020.
[2020-10-06] MEDS: ALBUTEROL HFA INHALER INHALATION PRN (17:06)
[2020-10-06] MEDS: MAG HYDROX/AL HYDROX/SIMETH 30 ML CUP PO SCH ×3 (17:41→21:34)
[2020-10-06 19:45] LABS: Glucose,Whole Blood 90 mg/dL (75-99)
[2020-10-07] MEDS: PIPERACILLIN-TAZOBACTAM 3.375 GM in SODIUM CHLORIDE 0.9% 100 ML IVPB SCH ×3 (00:36→15:57)
[2020-10-07 01:08] LABS: Glucose,Whole Blood 99 mg/dL (75-99)
[2020-10-07] MEDS: INSULIN ASPART (NovoLOG) 100 UNIT/ML VIAL SQ SCH ×4 (02:14→17:48)
[2020-10-07] MEDS: HYDROmorphone 1 MG/ML 1 ML SYRINGE IVP PRN ×7 (02:14→21:22)
[2020-10-07 06:58] LABS: Glucose,Whole Blood 97 mg/dL (75-99)
[2020-10-07 07:12] LABS: ALT 47 U/L (4-49); AST 48 U/L (17-59); African American GFR (CKD) 85 (>60 ml/min/1.73 sqM); Albumin 3.3 g/dL (3.5-5.0); Albumin/Globulin Ratio 1.3; Alkaline Phosphatase 99 U/L (38-126); Anion Gap 8 mmol/L; Blood Urea Nitrogen 13 mg/dL (9-20); Calcium 9.7 mg/dL (8.4-10.2); Carbon Dioxide 29 mmol/L (22-30); Chloride 98 mmol/L (98-107); Globulin 2.6 g/dL; Glucose 111 mg/dL (74-99); Magnesium 1.7 mg/dL (1.6-2.3); Non-African American GFR(CKD) 74 (>60 ml/min/1.73 sqM); Phosphorus 5.4 mg/dL (2.5-4.5); Potassium 3.9 mmol/L (3.5-5.1); Sodium 135 mmol/L (137-145); Total Bilirubin 0.2 mg/dL (0.2-1.3); Total Protein 5.9 g/dL (6.3-8.2)
[2020-10-07] MEDS: HEPARIN SODIUM,PORCINE/PF 5,000 UNIT/0.5 ML SYRINGE SQ SCH ×2 (07:13→15:57)
[2020-10-07] MEDS: PANTOPRAZOLE 40 MG/10 ML VIAL IV SCH (07:13)
[2020-10-07] MEDS: lisinopriL 10 MG TAB PO SCH (08:07)
[2020-10-07] MEDS: DEXTROSE 5%-0.9% NACL 1,000 ML IV SCH ×2 (08:08→16:54)
[2020-10-07] MEDS: MAGNESIUM OXIDE 400 MG TAB PO SCH ×2 (08:14→08:17)
[2020-10-07] MEDS: MAG HYDROX/AL HYDROX/SIMETH 30 ML CUP PO SCH ×4 (08:14→21:22)
[2020-10-07] MEDS: hydroCHLOROthiazide 12.5 MG CAP PO SCH (08:14)
[2020-10-07] MEDS: METOPROLOL TARTRATE 50 MG TAB PO SCH ×2 (08:17→21:22)
[2020-10-07] MEDS ORDERED: 1: MVI, ADULT NO.4 WITH VIT K 10 ML, TRACE (CONC-1ML/DOSE) 1 ML, PARENTERAL ELECTROLYTES IV SCH ×9 (09:00→16:00)
--- NOTE | 2020-10-07 11:33 | P.PN ---
Progress Note - Text Progress Note Date: 10/06/20 Patient still has high output through his NG tube. He's had some flatus. On exam her vital signs are stable. Abdomen soft.. Patient is instructed to and bleed. We'll have his NG tube removed tomorrow
--- NOTE | 2020-10-07 11:35 | P.PN ---
Progress Note - Text Progress Note Date: 10/07/20 Patient continues to have flatus. He states he feels better. On exam her vital signs are stable. Abdomen soft. Resolving ileus. She will have NG tube removed and start on clear liquids today.
[2020-10-07 11:42] LABS: Glucose,Whole Blood 98 mg/dL (75-99)
[2020-10-07] MEDS: MAGNESIUM SULFATE-D5W PMX 1 GM in DEXTROSE/WATER 1 100ML.BAG IVPB SCH ×2 (11:42→13:56)
[2020-10-07] MEDS: MVI, ADULT NO.4 WITH VIT K 10 ML, TRACE (CONC-1ML/DOSE) 1 ML, PARENTERAL ELECTROLYTES 2... IV SCH ×6 (11:57)
--- NOTE | 2020-10-07 13:17 | P.PN ---
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 Patient is currently residing in [facility]. Patient was admitted to the hospital from September 12 through September 27 which time he was treated for partial small bowel obstruction s/p partial omentectomy, lysis of adhesions and repair of incisional hernia 09/21 Dr. Fernandez. Patient was discharged back to the nursing home on September 27. He states he's had a bowel movement yesterday and these had increasing abdominal pain and nausea and unable to eat. Patient was brought into [facility] emergency center for evaluation. Patient was found to be afebrile, 107, blood pressure 142/89, pulse ox 98% on room air. initial heart rate 121 with repeat 101, blood pressure 119/86, pulse ox 97% on room air. WBC 16.9, hemoglobin 12.8, platelet count 741. Sodium 133, potassium 4.4, chloride 96, CO2 27, BUN 15 creatinine 1.18. Blood sugar 94. Troponin negative. CK 43. Urinalysis yellow, protein 3+, negative for infection. CAT scan of the abdomen and pelvis with contrast revealed marked dilated small bowel and dilated stomach suggestive of mechanical mid small bowel obstruction. This could be due to some adhesions in the mid abdomen. Obstruction is new compared to old exam. There is minimal free air in the pelvis probably related to intestinal obstruction. Patient has been admitted and consult in place with Dr. Fernandez. 09/30: Patient has NG tube in place. He denies passing any gas and having a bowel movement. Patient has been seen by general surgery for ileus versus small bowel obstruction. Hurricaine spray added for irritation to mucous membranes from NG tube. 2 officers remain at the bedside. Patient has been afebrile, heart rate 106, blood pressure 136/92, pulse ox 97% on room air. Repeat blood work reveals WBC 14.3, hemoglobin 11.2 completed a couple center 73. Sodium 131, potassium 4.6, chloride 98, CO2 21, BUN 13 and creatinine 1.09. Blood sugars are running between 66 and 106. Patient is on IV fluids dextrose 5% half normal saline which will be changed to D5 0.9 normal saline due to low sodium. He is on heparin subcu for DVT prophylaxis and Protonix for GI prophylaxis. Patient also has morphine available and Zofran. 10/01: Patient has been afebrile, heart rate 99, blood pressure 160/88, pulse ox 98% on room air. Blood sugars running between 85 and 106. Patient complains of RUQ pain, he has not passed gas, no bowel movement. He has had large output from NG tube yellow-brown fluid. He also complains of some nausea and insomnia for which Benadryl will be added and patient will need to ask for a period patient has 2 officers in the room and they state that he walked in the hallway yesterday. Repeat blood work has been ordered. 10/02: Patient has been afebrile, heart rate 115, blood pressure 160/95, pulse ox 97% on room air. Patient started on IV Lopressor scheduled and until nothing by mouth status is discontinued. Blood sugars are running between 99 and 114. Patient states he slept well last night. He is not passing gas and is not having a bowel movement. NG tube remains in place with bile-colored fluid return. Patient is complaining of more right upper abdominal pain today. Zosyn added. Abdominal x-ray reveals no bowel obstruction. No large pneum operitoneum. Atelectasis in the lung bases. Some spirometry added. WBC 10.9, hemoglobin 11, platelet count 802. Electrolytes within normal limits. BUN 6 and creatinine 1. Blood sugars running between 99 and 114. 10/03 patient seen for follow-up today, he has still an NG tube, and draining bilious fluid, no fecaloid material noted, patient's x-ray shows no significant pattern for obstruction, patient is being seen by general surgery, who would decide later today on a small bowel follow-through, no complaints today of chest pain no palpitations, has some practice today, no bowel movements yet. Patient has no leg cramps leg pain, no new back pain, safety officers at bedside, no agitation noted, no new labs for review today, we will obtain one for tomorrow morning until IV Zosyn, last hemoglobin was 11.0, WBC count 10.9, no metabolic acidosis, and the hypokalemia noted. 10/04 the patient is better comfortable today, still with an NG tube, and draining bilious fluid, has flat this day, clinical exam shows normal bowel sounds, no bowel movement yet. We're going to start TPN today, with PICC line placement, consult with dietitian lab soles hemoglobin 11.1, WBC 9.7, platelet 836, glucose 103, creatinine 1.15, potassium 4.3, sodium 141 10/05 patient is still nothing by mouth, NG tube, general surgery has seen the patient, has improvement on the ileus clinically, flat is present, no stools, they might start on clear liquid diet today, TPN is infusing, no new difficulties. No chest pain no shortness breath, no edema. 19, patient follow-up, still NG tube, no bowel movement, has been ambulating, NG tube is in place. Patient's currently nothing by mouth, still with TPN infu sions. Patient has GERD symptoms, start Maalox plus, x-rays of the abdomen to be done today, vitals are stable, no fever, antibiotics to infusing. Security officers, at bedside for vigilance stable 10/07: Patient is comfortable today, as the NG tube has been taken out today, popsicles are served to some practice, no bowel movement. Still with right upper quadrant tenderness and the parastomal incisional location, no nausea no vomiting, no fever no chest pain, no leg swelling or edema. TPN is infusing, this would be discontinued once oral intake is improved REVIEW OF SYSTEMS Constitutional: No fever, no chills, no night sweats. No weight change. No weakness, fatigue or lethargy. No daytime sleepiness. EENT: No headache. No blurred vision or double vision, no loss of vision. No loss of Hearing, no ringing in the ears, no dizziness. No nasal drainage or congestion. No epistaxis. No sore throat. Lungs: No shortness of breath, cough, no sputum production. No wheezing. Cardiovascular: No chest pain, no lower extremity edema. No palpitations. No paroxysmal nocturnal dyspnea. No orthopnea. No lightheadedness or dizziness. No syncopal episodes. Abdominal: Reports abdominal pain. Reports nausea, denies vomiting. No diarrhea. Reports constipation. No bloody or tarry stools. Reports loss of appetite. Genitourinary: No dysuria, increased frequency, urgency. No urinary retention. Musculoskeletal: No myalgias. No muscle weakness, no gait dysfunction, no frequent falls. No back pain. No neck pain. Integumentary: No wounds, no lesions. No rash or pruritus. No unusual bruising. No change in hair or nails. Neurologic: No aphasia. No facial droop. No change in mentation. No head injury. No headache. No paralysis. No paresthesia. Psychiatric: No depression. No anxiety. No mood swings. Endocrine: No abnormal blood sugars. No weight change. Objective - Vital Signs Vital signs: Vital Signs Temp 98.6 F 10/07/20 06:37 Pulse 91 10/07/20 06:37 Resp 16 10/07/20 06:37 BP 104/70 10/07/20 06:37 Pulse Ox 95 10/07/20 06:37 Intake & Output 10/06/20 10/07/20 10/07/20 18:59 06:59 18:59 Output Total 700 600 200 Balance -700 -600 -200 Weight 120.656 kg Output: Gastric Drainage 700 600 200 Other: Voiding Method Toilet Urinal # Voids 0 - Constitutional General appearance: Present: cooperative, no acute distress - EENT Eyes: Present: EOMI, PERRLA, dentition normal, normal appearance ENT: Present: NA/AT, normal oropharynx - Neck Neck: Present: normal ROM - Gastrointestinal General gastrointestinal: Present: decreased bowel sounds, soft, tenderness - Musculoskeletal Musculoskeletal: Present: strength equal bilaterally - Psychiatric Psychiatric: Present: A&O x's 3, appropriate affect - Labs CBC & Chem 7: 10/04/20 07:05 10/07/20 06:07 Labs: Abnormal Lab Results - Last 24 Hours (Table) 10/07/20 Range/Units 06:07 Sodium 135 L (137-145) mmol/L Glucose 111 H (74-99) mg/dL Phosphorus 5.4 H (2.5-4.5) mg/dL Total Protein 5.9 L (6.3-8.2) g/dL Albumin 3.3 L (3.5-5.0) g/dL Assessment and Plan Plan: ASSESSMENT AND PLAN 1. Small bowel obstruction or ileus. Consult with Dr. Fernandez/general surgery appreciated. Patient is nothing by mouth and NG tube. IV fluids D5 0.9 normal saline at 130 mL/h. Zosyn added for right-sided peritonitis. NG tube, and Las ix, and by mouth [facility] is probably going to decide later on small bowel follow-through, start PPN thru [facility] today 10/04 dietiian consulted, NG tube discontinued 10/07/2020 2. Recent hospitalization for Partial small bowel obstruction s/p partial omentectomy, lysis of adhesions and repair of incisional hernia 09/21. 3. History of renal cell cancer, stable. 4. Hypertension. Hold oral medications: hydrochlorothiazide 12.5 mg daily, lisinopril 10 mg at bedtime, Lopressor 100 mg twice daily, continue hydralazine 10 mg IV push every 6 hours as needed for systolic blood pressure greater than 160 or diastolic blood pressure greater than 90. On metoprolol oral, 100 mg twice a day, and aNGT are clamped only for medication purposes. 5. Hyperlipidemia. Hold fenofibrate 160 mg at bedtime. 6. Diabetes mellitus type 2. Hold glipizide 10 mg daily, metformin 1000 mg twice daily, start NovoLog scale will be added. 7. Gastroesophageal reflux disease. Continue Protonix 40 mg daily IV. 8. Chronic back pain. 9. History of SVT. Continue Lopressor. 10. DVT prophylaxis. Heparin subcu. DISCHARGE PLAN Return To [facility]. 2 officers are at bedside.
[2020-10-07] MEDS: FAT EMULSION 20% 500 ML in EMPTY BAG 1 BAG IV SCH (15:58)
[2020-10-07 17:00] LABS: Glucose,Whole Blood 98 mg/dL (75-99)
[2020-10-08] MEDS: HYDROmorphone 1 MG/ML 1 ML SYRINGE IVP PRN ×8 (00:28→23:55)
[2020-10-08] MEDS: PIPERACILLIN-TAZOBACTAM 3.375 GM in SODIUM CHLORIDE 0.9% 100 ML IVPB SCH ×4 (00:28→23:55)
[2020-10-08] MEDS: HEPARIN SODIUM,PORCINE/PF 5,000 UNIT/0.5 ML SYRINGE SQ SCH ×4 (00:28→23:55)
[2020-10-08] MEDS: DEXTROSE 5%-0.9% NACL 1,000 ML IV SCH ×4 (00:33→20:42)
[2020-10-08 02:18] LABS: Glucose,Whole Blood 106 mg/dL (75-99)
[2020-10-08] MEDS: MVI, ADULT NO.4 WITH VIT K 10 ML, TRACE (CONC-1ML/DOSE) 1 ML, PARENTERAL ELECTROLYTES 2... IV SCH ×6 (03:07)
[2020-10-08] MEDS: INSULIN ASPART (NovoLOG) 100 UNIT/ML VIAL SQ SCH ×5 (03:07→23:56)
[2020-10-08] MEDS: ONDANSETRON 4 MG/2 ML VIAL IVP PRN ×2 (05:54→20:41)
[2020-10-08 06:51] LABS: African American GFR (CKD) 88 (>60 ml/min/1.73 sqM); Anion Gap 10 mmol/L; Blood Urea Nitrogen 15 mg/dL (9-20); Calcium 9.4 mg/dL (8.4-10.2); Carbon Dioxide 26 mmol/L (22-30); Chloride 98 mmol/L (98-107); Glucose 110 mg/dL (74-99); Magnesium 1.9 mg/dL (1.6-2.3); Non-African American GFR(CKD) 76 (>60 ml/min/1.73 sqM); Phosphorus 4.6 mg/dL (2.5-4.5); Sodium 134 mmol/L (137-145)
[2020-10-08 07:15] LABS: Glucose,Whole Blood 102 mg/dL (75-99)
[2020-10-08] MEDS: lisinopriL 10 MG TAB PO SCH (08:00)
[2020-10-08] MEDS: MAG HYDROX/AL HYDROX/SIMETH 30 ML CUP PO SCH ×4 (08:12→20:40)
[2020-10-08] MEDS: hydroCHLOROthiazide 12.5 MG CAP PO SCH (08:12)
[2020-10-08] MEDS: PANTOPRAZOLE 40 MG/10 ML VIAL IV SCH (08:13)
[2020-10-08] MEDS: METOPROLOL TARTRATE 50 MG TAB PO SCH ×2 (08:13→20:42)
[2020-10-08] MEDS: MAGNESIUM OXIDE 400 MG TAB PO SCH (09:01)
--- NOTE | 2020-10-08 09:41 | P.PN ---
Subjective Progress Note Date: 10/08/20 Principal diagnosis: Ileus Patient had nasogastric tube removed. Taking in minimal amounts of clears. No flatus. No bowel movement. Mild pain. Objective - Vital Signs Vital signs: Vital Signs Temp 98.4 F 10/08/20 07:55 Pulse 91 10/08/20 07:55 Resp 16 10/08/20 07:55 BP 114/84 10/08/20 07:55 Pulse Ox 97 10/08/20 07:55 Intake & Output 10/07/20 10/08/20 10/08/20 18:59 06:59 18:59 Output Total 200 Balance -200 Weight 120.656 kg Output: Gastric Drainage 200 Other: Voiding Method Toilet Urinal # Voids 3 2 - Exam Abdomen: Soft, mildly distended, minimal tenderness - Labs CBC & Chem 7: 10/04/20 07:05 10/08/20 06:03 Labs: Abnormal Lab Results - Last 24 Hours (Table) 10/08/20 10/08/20 10/08/20 Range/Units 02:05 06:03 07:12 Sodium 134 L (137-145) mmol/L Glucose 110 H (74-99) mg/dL POC Glucose (mg/dL) 106 H 102 H (75-99) mg/dL Phosphorus 4.6 H (2.5-4.5) mg/dL Assessment and Plan (1) Abdominal pain Narrative/Plan: Patient with ileus versus recurrent small bowel obstruction. Continue clear liquids. Ambulate. Will follow. Current Visit: No Status: Acute Code(s): R10.9 - UNSPECIFIED ABDOMINAL PAIN SNOMED Code(s): 99507897
[2020-10-08 11:37] LABS: Glucose,Whole Blood 93 mg/dL (75-99)
[2020-10-08] MEDS: 1: MVI, ADULT NO.4 WITH VIT K 10 ML, TRACE (CONC-1ML/DOSE) 1 ML, PARENTERAL ELECTROLYTES IV SCH ×12 (12:07→23:39)
[2020-10-08] MEDS: diphenhydrAMINE 2% CREAM 28.4 GM TUBE TOPICAL PRN (15:08)
[2020-10-08 16:45] LABS: Glucose,Whole Blood 89 mg/dL (75-99)
--- NOTE | 2020-10-08 17:05 | P.PN ---
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 Patient is currently residing in [facility]. Patient was admitted to the hospital from September 12 through September 27 which time he was treated for partial small bowel obstruction s/p partial omentectomy, lysis of adhesions and repair of incisional hernia 09/21 Dr. Fernandez. [facility]. He states he's had a bowel movement yesterday and these had increasing abdominal pain and nausea and unable to eat. Patient was brought into [facility] emergency center for evaluation. Patient was found to be afebrile, 107, blood pressure 142/89, pulse ox 98% on room air. initial heart rate 121 with repeat 101, blood pressure 119/86, pulse ox 97% on room air. WBC 16.9, hemoglobin 12.8, platelet count 741. Sodium 133, potassium 4.4, chloride 96, CO2 27, BUN 15 creatinine 1.18. Blood sugar 94. Troponin negative. CK 43. Urinalysis yellow, protein 3+, negative for infection. CAT scan of the abdomen and pelvis with contrast revealed marked dilated small bowel and dilated stomach suggestive of mechanical mid small bowel obstruction. This could be due to some adhesions in the mid abdomen. Obstruction is new compared to old exam. There is minimal free air in the pelvis probably related to intestinal obstruction. Patient has been admitted and consult in place with Dr. Fernandez. 09/30: Patient has NG tube in place. He denies passing any gas and having a bowel movement. Patient has been seen by general surgery for ileus versus small bowel obstruction. Hurricaine spray added for irritation to mucous membranes from NG tube. 2 officers remain at the bedside. Patient has been afebrile, heart rate 106, blood pressure 136/92, pulse ox 97% on room air. Repeat blood work reveals WBC 14.3, hemoglobin 11.2 completed a couple center 73. Sodium 131, potassium 4.6, chloride 98, CO2 21, BUN 13 and creatinine 1.09. Blood sugars are running between 66 and 106. Patient is on IV fluids dextrose 5% half normal saline which will be changed to D5 0.9 normal saline due to low sodium. He is on heparin subcu for DVT prophylaxis and Protonix for GI prophylaxis. Patient also has morphine available and Zofran. 10/01: Patient has been afebrile, heart rate 99, blood pressure 160/88, pulse ox 98% on room air. Blood sugars running between 85 and 106. Patient complains of RUQ pain, he has not passed gas, no bowel movement. He has had large output from NG tube yellow-brown fluid. He also complains of some nausea and insomnia for which Benadryl will be added and patient will need to ask for a period patient has 2 officers in the room and they state that he walked in the hallway yesterday. Repeat blood work has been ordered. 10/02: Patient has been afebrile, heart rate 115, blood pressure 160/95, pulse ox 97% on room air. Patient started on IV Lopressor scheduled and until nothing by mouth status is discontinued. Blood sugars are running between 99 and 114. Patient states he slept well last night. He is not passing gas and is not having a bowel movement. NG tube remains in place with bile-colored fluid re turn. Patient is complaining of more right upper abdominal pain today. Zosyn added. Abdominal x-ray reveals no bowel obstruction. No large pneumoperitoneum. Atelectasis in the lung bases. Some spirometry added. WBC 10.9, hemoglobin 11, platelet count 802. Electrolytes within normal limits. BUN 6 and creatinine 1. Blood sugars running between 99 and 114. 10/03 patient seen for follow-up today, he has still an NG tube, and draining bilious fluid, no fecaloid material noted, patient's x-ray shows no significant pattern for obstruction, patient is being seen by general surgery, who would decide later today on a small bowel follow-through, no complaints today of chest pain no palpitations, has some practice today, no bowel movements yet. Patient has no leg cramps leg pain, no new back pain, safety officers at bedside, no agitation noted, no new labs for review today, we will obtain one for tomorrow morning until IV Zosyn, last hemoglobin was 11.0, WBC count 10.9, no metabolic acidosis, and the hypokalemia noted. 10/04 the patient is better comfortable today, still with an NG tube, and draining bilious fluid, has flat this day, clinical exam shows normal bowel sounds, no bowel movement yet. We're going to start TPN today, with PICC line placement, consult with dietitian lab soles hemoglobin 11.1, WBC 9.7, platelet 836, glucose 103, creatinine 1.15, potassium 4.3, sodium 141 10/05 patient is still nothing by mouth, NG tube, general surgery has seen the patient, has improvement on the ileus clinically, flat is present, no stools, they might start on clear liquid diet today, TPN is infusing, no new difficulties. No chest pain no shortness breath, no edema. 19, patient follow-up, still NG tube, no bowel movement, has been ambulating, NG tube is in place. Patient's currently nothing by mouth, still with TPN infusions. Patient has GERD symptoms, start Maalox plus, x-rays of the abdomen to be done today, vitals are stable, no fever, antibiotics to infusing. Sec urity officers, at bedside for vigilance stable 10/07: Patient is comfortable today, as the NG tube has been taken out today, popsicles are served to some practice, no bowel movement. Still with right upper quadrant tenderness and the parastomal incisional location, no nausea no vomiting, no fever no chest pain, no leg swelling or edema. TPN is infusing, this would be discontinued once oral intake is improved 10/08 patient comfortable denies any nausea or vomiting. Continues to remain on clear liquid diet. He denies any bowel movement today but does have a small episode of bowel movement yesterday. Vitals are reviewed patient is afebrile pulse 87 respiratory rate 17 and blood pressure 112/78. Sodium 134 potassium 4 chloride 98 BUN 15 creatinine 1.13 glucose Controlled phosphorus 4.6 magnesium 1.9. Continue clear liquid diet encourage ambulation REVIEW OF SYSTEMS Constitutional: No fever, no chills, no night sweats. No weight change. No weakness, fatigue or lethargy. No daytime sleepiness. EENT: No headache. No blurred vision or double vision, no loss of vision. No loss of Hearing, no ringing in the ears, no dizziness. No nasal drainage or co ngestion. No epistaxis. No sore throat. Lungs: No shortness of breath, cough, no sputum production. No wheezing. Cardiovascular: No chest pain, no lower extremity edema. No palpitations. No paroxysmal nocturnal dyspnea. No orthopnea. No lightheadedness or dizziness. No syncopal episodes. Abdominal: Reports abdominal pain. Reports nausea, denies vomiting. No diarrhea. Reports constipation. No bloody or tarry stools. Reports loss of appetite. Genitourinary: No dysuria, increased frequency, urgency. No urinary retention. Musculoskeletal: No myalgias. No muscle weakness, no gait dysfunction, no frequent falls. No back pain. No neck pain. Integumentary: No wounds, no lesions. No rash or pruritus. No unusual bruising. No change in hair or nails. Neurologic: No aphasia. No facial droop. No change in mentation. No head injury. No headache. No paralysis. No paresthesia. Psychiatric: No depression. No anxiety. No mood swings. Endocrine: No abnormal blood sugars. No weight change. - Constitutional General appearance: Present: cooperative, no acute distress - EENT Eyes: Present: EOMI, PERRLA, dentition normal, normal appearance ENT: Present: NA/AT, normal oropharynx - Neck Neck: Present: normal ROM - Gastrointestinal General gastrointestinal: Present: decreased bowel sounds, soft, tenderness - Musculoskeletal Musculoskeletal: Present: strength equal bilaterally - Psychiatric Psychiatric: Present: A&O x's 3, appropriate affect 1. Small bowel obstruction or ileus. Consult with Dr. Fernandez/general surgery appreciated. Patient is nothing by mouth and NG tube. IV fluids D5 0.9 normal saline at 130 mL/h. Zosyn added for right-sided peritonitis. NG tube, and Lasix, and by mouth [facility] surgery is probably going to decide later on small bowel follow-through, start PPN thru [facility] today 10/04 dietiian consulted, NG tube discontinued 10/07/2020 2. Recent hospitalization for Partial small bowel obstruction s/p partial omentectomy, lysis of adhesions and repair of incisional hernia 09/21. 3. History of renal cell cancer, stable. 4. Hypertension. Hold oral medications: hydrochlorothiazide 12.5 mg daily, lisinopril 10 mg at bedtime, Lopressor 100 mg twice daily, continue hydralazine 10 mg IV push every 6 hours as needed for systolic blood pressure greater than 160 or diastolic blood pressure greater than 90. On metoprolol oral, 100 mg twice a day, 5. Hyperlipidemia. Hold fenofibrate 160 mg at bedtime. 6. Diabetes mellitus type 2. Hold glipizide 10 mg daily, metformin 1000 mg twice daily, NovoLog scale will be added. 7. Gastroesophageal reflux disease. Continue Protonix 40 mg daily IV. 8. Chronic back pain. 9. History of SVT. Continue Lopressor. 10. DVT prophylaxis. Heparin subcu. DISCHARGE PLAN Return To [facility]. 2 officers are at bedside. Objective - Vital Signs Vital signs: Vital Signs Temp 98.4 F 10/08/20 14:22 Pulse 87 10/08/20 14:22 Resp 17 10/08/20 14:22 BP 112/78 10/08/20 14:22 Pulse Ox 97 10/08/20 14:22 Intake & Output 10/07/20 10/08/20 10/08/20 18:59 06:59 18:59 Output Total 200 Balance -200 Weight 120.656 kg Output: Gastric Drainage 200 Other: Voiding Method Toilet Urinal # Voids 3 2 - Labs CBC & Chem 7: 10/04/20 07:05 10/08/20 06:03 Labs: Abnormal Lab Results - Last 24 Hours (Table) 10/08/20 10/08/20 10/08/20 Range/Units 02:05 06:03 07:12 Sodium 134 L (137-145) mmol/L Glucose 110 H (74-99) mg/dL POC Glucose (mg/dL) 106 H 102 H (75-99) mg/dL Phosphorus 4.6 H (2.5-4.5) mg/dL
[2020-10-08 23:57] LABS: Glucose,Whole Blood 96 mg/dL (75-99)
[2020-10-09] MEDS: DEXTROSE 5%-0.9% NACL 1,000 ML IV SCH ×3 (03:16→20:38)
[2020-10-09] MEDS: HYDROmorphone 1 MG/ML 1 ML SYRINGE IVP PRN ×5 (05:29→20:38)
[2020-10-09 06:12] LABS: Glucose,Whole Blood 108 mg/dL (75-99)
[2020-10-09 06:40] LABS: African American GFR (CKD) 82 (>60 ml/min/1.73 sqM); Anion Gap 11 mmol/L; Blood Urea Nitrogen 16 mg/dL (9-20); Calcium 9.7 mg/dL (8.4-10.2); Carbon Dioxide 25 mmol/L (22-30); Chloride 98 mmol/L (98-107); Glucose 98 mg/dL (74-99); Magnesium 1.8 mg/dL (1.6-2.3); Non-African American GFR(CKD) 71 (>60 ml/min/1.73 sqM); Potassium 4.3 mmol/L (3.5-5.1); Sodium 134 mmol/L (137-145)
[2020-10-09] MEDS: METOPROLOL TARTRATE 50 MG TAB PO SCH ×2 (07:51→20:38)
[2020-10-09] MEDS: MAGNESIUM OXIDE 400 MG TAB PO SCH (07:51)
[2020-10-09] MEDS: PANTOPRAZOLE 40 MG/10 ML VIAL IV SCH (07:51)
[2020-10-09] MEDS: MAG HYDROX/AL HYDROX/SIMETH 30 ML CUP PO SCH ×4 (07:51→20:38)
[2020-10-09] MEDS: hydroCHLOROthiazide 12.5 MG CAP PO SCH (07:51)
[2020-10-09] MEDS: INSULIN ASPART (NovoLOG) 100 UNIT/ML VIAL SQ SCH ×3 (07:52→17:04)
[2020-10-09] MEDS: lisinopriL 10 MG TAB PO SCH (07:52)
[2020-10-09] MEDS: HEPARIN SODIUM,PORCINE/PF 5,000 UNIT/0.5 ML SYRINGE SQ SCH ×3 (07:52→22:55)
[2020-10-09] MEDS: PIPERACILLIN-TAZOBACTAM 3.375 GM in SODIUM CHLORIDE 0.9% 100 ML IVPB SCH (07:52)
[2020-10-09] MEDS: diphenhydrAMINE 2% CREAM 28.4 GM TUBE TOPICAL PRN (08:00)
--- NOTE | 2020-10-09 10:14 | P.PN ---
Subjective Progress Note Date: 10/09/20 Principal diagnosis: Ileus Patient doing better today. Passing more flatus. He is hungry. No nausea today. He is tolerating his clear liquids. Objective - Vital Signs Vital signs: Vital Signs Temp 98.3 F 10/09/20 07:08 Pulse 82 10/09/20 07:08 Resp 18 10/09/20 07:08 BP 122/80 10/09/20 07:08 Pulse Ox 98 10/09/20 07:08 Intake & Output 10/08/20 10/09/20 10/09/20 18:59 06:59 18:59 Intake Total 510 360 Balance 510 360 Intake: Intake, IV Titration 460 360 Amount Mvi, Adult No.4 with Vit 360 K 10 ml Trace (Conc-1Ml/ Dose) 1 ml Parenteral Electrolytes 20 ml Magnesium Sulfate gm 1 gm Sodium Acetate 20 meq In Amino Acid 5%-D15w 1,000 ml @ 30 mls/hr IV .Q24H [facility] Rx#:[id number] Mvi, Adult No.4 with Vit 360 K 10 ml Trace (Conc-1Ml/ Dose) 1 ml Parenteral Electrolytes 20 ml Magnesium Sulfate gm 1 gm Sodium Acetate 20 meq In Amino Acid 5%-D15w 1,000 ml @ 75 mls/hr IV .BY DURATION [facility] Rx#: [id number] Piperacillin-Tazobactam 3 100 .375 gm In Sodium Chloride 0.9% 100 ml @ 25 mls/hr IVPB Q8HR [facility] Rx# :[id number] Oral 50 Other: Voiding Method Toilet Urinal # Voids 2 2 - Exam Abdomen: Soft, nondistended, incision clean and dry, nontender - Labs CBC & Chem 7: 10/04/20 07:05 10/09/20 05:32 Labs: Abnormal Lab Results - Last 24 Hours (Table) 10/09/20 10/09/20 Range/Units 05:32 06:10 Sodium 134 L (137-145) mmol/L POC Glucose (mg/dL) 108 H (75-99) mg/dL Assessment and Plan (1) Abdominal pain Narrative/Plan: Patient doing better. Advance diet to full liquids. Remove the remainder of the midline brenna. Ambulate. Current Visit: No Status: Acute Code(s): R10.9 - UNSPECIFIED ABDOMINAL PAIN SNOMED Code(s): 20233295
[2020-10-09 11:36] LABS: Glucose,Whole Blood 117 mg/dL (75-99)
[2020-10-09] MEDS: MAGNESIUM SULFATE-D5W PMX 1 GM in DEXTROSE/WATER 1 100ML.BAG IVPB SCH ×2 (11:41→13:09)
[2020-10-09] MEDS: 1: MVI, ADULT NO.4 WITH VIT K 10 ML, TRACE (CONC-1ML/DOSE) 1 ML, PARENTERAL ELECTROLYTES IV SCH ×12 (13:00→23:57)
--- NOTE | 2020-10-09 13:05 | P.PN ---
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 Patient is currently residing in [facility]. Patient was admitted to the hospital from September 12 through September 27 which time he was treated for partial small bowel obstruction s/p partial omentectomy, lysis of adhesions and repair of incisional hernia 09/21 Dr. Fernandez. [facility]. He states he's had a bowel movement yesterday and these had increasing abdominal pain and nausea and unable to eat. Patient was brought into [facility] emergency center for evaluation. Patient was found to be afebrile, 107, blood pressure 142/89, pulse ox 98% on room air. initial heart rate 121 with repeat 101, blood pressure 119/86, pulse ox 97% on room air. WBC 16.9, hemoglobin 12.8, platelet count 741. Sodium 133, potassium 4.4, chloride 96, CO2 27, BUN 15 creatinine 1.18. Blood sugar 94. Troponin negative. CK 43. Urinalysis yellow, protein 3+, negative for infection. CAT scan of the abdomen and pelvis with contrast revealed marked dilated small bowel and dilated stomach suggestive of mechanical mid small bowel obstruction. This could be due to some adhesions in the mid abdomen. Obstruction is new compared to old exam. There is minimal free air in the pelvis probably related to intestinal obstruction. Patient has been admitted and consult in place with Dr. Fernandez. 09/30: Patient has NG tube in place. He denies passing any gas and having a bowel movement. Patient has been seen by general surgery for ileus versus small bowel obstruction. Hurricaine spray added for irritation to mucous membranes from NG tube. 2 officers remain at the bedside. Patient has been afebrile, heart rate 106, blood pressure 136/92, pulse ox 97% on room air. Repeat blood work reveals WBC 14.3, hemoglobin 11.2 completed a couple center 73. Sodium 131, potassium 4.6, chloride 98, CO2 21, BUN 13 and creatinine 1.09. Blood sugars are running between 66 and 106. Patient is on IV fluids dextrose 5% half normal saline which will be changed to D5 0.9 normal saline due to low sodium. He is on heparin subcu for DVT prophylaxis and Protonix for GI prophylaxis. Patient also has morphine available and Zofran. 10/01: Patient has been afebrile, heart rate 99, blood pressure 160/88, pulse ox 98% on room air. Blood sugars running between 85 and 106. Patient complains of RUQ pain, he has not passed gas, no bowel movement. He has had large output from NG tube yellow-brown fluid. He also complains of some nausea and insomnia for which Benadryl will be added and patient will need to ask for a period patient has 2 officers in the room and they state that he walked in the hallway yesterday. Repeat blood work has been ordered. 10/02: Patient has been afebrile, heart rate 115, blood pressure 160/95, pulse ox 97% on room air. Patient started on IV Lopressor scheduled and until nothing by mouth status is discontinued. Blood sugars are running between 99 and 114. Patient states he slept well last night. He is not passing gas and is not having a bowel movement. NG tube remains in place with bile-colored fluid re turn. Patient is complaining of more right upper abdominal pain today. Zosyn added. Abdominal x-ray reveals no bowel obstruction. No large pneumoperitoneum. Atelectasis in the lung bases. Some spirometry added. WBC 10.9, hemoglobin 11, platelet count 802. Electrolytes within normal limits. BUN 6 and creatinine 1. Blood sugars running between 99 and 114. 10/03 patient seen for follow-up today, he has still an NG tube, and draining bilious fluid, no fecaloid material noted, patient's x-ray shows no significant pattern for obstruction, patient is being seen by general surgery, who would decide later today on a small bowel follow-through, no complaints today of chest pain no palpitations, has some practice today, no bowel movements yet. Patient has no leg cramps leg pain, no new back pain, safety officers at bedside, no agitation noted, no new labs for review today, we will obtain one for tomorrow morning until IV Zosyn, last hemoglobin was 11.0, WBC count 10.9, no metabolic acidosis, and the hypokalemia noted. 10/04 the patient is better comfortable today, still with an NG tube, and draining bilious fluid, has flat this day, clinical exam shows normal bowel sounds, no bowel movement yet. We're going to start TPN today, with PICC line placement, consult with dietitian lab soles hemoglobin 11.1, WBC 9.7, platelet 836, glucose 103, creatinine 1.15, potassium 4.3, sodium 141 10/05 patient is still nothing by mouth, NG tube, general surgery has seen the patient, has improvement on the ileus clinically, flat is present, no stools, they might start on clear liquid diet today, TPN is infusing, no new difficulties. No chest pain no shortness breath, no edema. 19, patient follow-up, still NG tube, no bowel movement, has been ambulating, NG tube is in place. Patient's currently nothing by mouth, still with TPN infusions. Patient has GERD symptoms, start Maalox plus, x-rays of the abdomen to be done today, vitals are stable, no fever, antibiotics to infusing. Sec urity officers, at bedside for vigilance stable 10/07: Patient is comfortable today, as the NG tube has been taken out today, popsicles are served to some practice, no bowel movement. Still with right upper quadrant tenderness and the parastomal incisional location, no nausea no vomiting, no fever no chest pain, no leg swelling or edema. TPN is infusing, this would be discontinued once oral intake is improved 10/08 patient comfortable denies any nausea or vomiting. Continues to remain on clear liquid diet. He denies any bowel movement today but does have a small episode of bowel movement yesterday. Vitals are reviewed patient is afebrile pulse 87 respiratory rate 17 and blood pressure 112/78. Sodium 134 potassium 4 chloride 98 BUN 15 creatinine 1.13 glucose Controlled phosphorus 4.6 magnesium 1.9. Continue clear liquid diet encourage ambulation A/P to patient examined bedside. He is tolerating full liquid diet denies any nausea or vomiting. Patient denies any abdominal pain. Vitals are reviewed patient is 98.3 pulse 82 blood pressure 1-222/80 reviewed creatinines 1.19 bun 16 sodium 134. continue to monitor bowel sounds. conservative management REVIEW OF SYSTEMS Constitutional: No fever, no chills, no night sweats. No weight change. No we akness, fatigue or lethargy. No daytime sleepiness. EENT: No headache. No blurred vision or double vision, no loss of vision. No loss of Hearing, no ringing in the ears, no dizziness. No nasal drainage or congestion. No epistaxis. No sore throat. Lungs: No shortness of breath, cough, no sputum production. No wheezing. Cardiovascular: No chest pain, no lower extremity edema. No palpitations. No paroxysmal nocturnal dyspnea. No orthopnea. No lightheadedness or dizziness. No syncopal episodes. Abdominal: Reports abdominal pain. Reports nausea, denies vomiting. No diarrhea. Reports constipation. No bloody or tarry stools. Reports loss of appetite. Genitourinary: No dysuria, increased frequency, urgency. No urinary retention. Musculoskeletal: No myalgias. No muscle weakness, no gait dysfunction, no frequent falls. No back pain. No neck pain. Integumentary: No wounds, no lesions. No rash or pruritus. No unusual bruising. No change in hair or nails. Neurologic: No aphasia. No facial droop. No change in mentation. No head injury. No headache. No paralysis. No paresthesia. Psychiatric: No depression. No anxiety. No mood swings. Endocrine: No abnormal blood sugars. No weight change. - Constitutional General appearance: Present: cooperative, no acute distress - EENT Eyes: Present: EOMI, PERRLA, dentition normal, normal appearance ENT: Present: NA/AT, normal oropharynx - Neck Neck: Present: normal ROM - Gastrointestinal General gastrointestinal: Present: decreased bowel sounds, soft, tenderness - Musculoskeletal Musculoskeletal: Present: strength equal bilaterally - Psychiatric Psychiatric: Present: A&O x's 3, appropriate affect Assessment and plan 1. Recurrent Small bowel obstruction or ileus. Consult with Dr. Fernandez/general surgery appreciated. Switch to clear liquid diet TPN at 75 mL per hour discontinued NG tube, on PPN thru [facility] today 10/04 dietiian consulted, NG tube discontinued 10/07/2020 2. Recent hospitalization for Partial small bowel obstruction s/p partial omentectomy, lysis of adhesions and repair of incisional hernia 09/21. 3. History of renal cell cancer, stable. 4. Hypertension. Hold oral medications: hydrochlorothiazide 12.5 mg daily, lisinopril 10 mg at bedtime, Lopressor 100 mg twice daily, continue hydralazine 10 mg IV push every 6 hours as needed for systolic blood pressure greater than 160 or diastolic blood pressure greater than 90. On metoprolol oral, 100 mg twice a day, 5. Hyperlipidemia. Hold fenofibrate 160 mg at bedtime. 6. Diabetes mellitus type 2. Hold glipizide 10 mg daily, metformin 1000 mg twice daily, NovoLog scale will be added. 7. Gastroesophageal reflux disease. Continue Protonix 40 mg daily IV. 8. Chronic back pain. 9. History of SVT. Continue Lopressor. 10. DVT prophylaxis. Heparin subcu. DISCHARGE PLAN Return To [facility]. 2 officers are at bedside. Objective - Vital Signs Vital signs: Vital Signs Temp 98.3 F 10/09/20 07:08 Pulse 82 10/09/20 07:08 Resp 18 10/09/20 07:08 BP 122/80 10/09/20 07:08 Pulse Ox 98 10/09/20 07:08 Intake & Output 10/08/20 10/09/20 10/09/20 18:59 06:59 18:59 Intake Total 510 360 Balance 510 360 Intake: Intake, IV Titration 460 360 Amount Mvi, Adult No.4 with Vit 360 K 10 ml Trace (Conc-1Ml/ Dose) 1 ml Parenteral Electrolytes 20 ml Magnesium Sulfate gm 1 gm Sodium Acetate 20 meq In Amino Acid 5%-D15w 1,000 ml @ 30 mls/hr IV .Q24H [facility] Rx#:[id number] Mvi, Adult No.4 with Vit 360 K 10 ml Trace (Conc-1Ml/ Dose) 1 ml Parenteral Electrolytes 20 ml Magnesium Sulfate gm 1 gm Sodium Acetate 20 meq In Amino Acid 5%-D15w 1,000 ml @ 75 mls/hr IV .BY DURATION [facility] Rx#: [id number] Piperacillin-Tazobactam 3 100 .375 gm In Sodium Chloride 0.9% 100 ml @ 25 mls/hr IVPB Q8HR [facility] Rx# :[id number] Oral 50 Other: Voiding Method Toilet Urinal # Voids 2 2 - Labs CBC & Chem 7: 10/04/20 07:05 10/09/20 05:32 Labs: Abnormal Lab Results - Last 24 Hours (Table) 10/09/20 10/09/20 10/09/20 Range/Units 05:32 06:10 11:34 Sodium 134 L (137-145) mmol/L POC Glucose (mg/dL) 108 H 117 H (75-99) mg/dL
[2020-10-09 16:38] LABS: Glucose,Whole Blood 94 mg/dL (75-99)
[2020-10-09] MEDS: HYDROcodone/APAP 15 ML SOLUTION PO PRN ×2 (17:00→22:55)
[2020-10-10 00:07] LABS: Glucose,Whole Blood 113 mg/dL (75-99)
[2020-10-10] MEDS: INSULIN ASPART (NovoLOG) 100 UNIT/ML VIAL SQ SCH ×5 (00:07→23:33)
[2020-10-10] MEDS: DEXTROSE 5%-0.9% NACL 1,000 ML IV SCH ×3 (04:19→17:44)
[2020-10-10] MEDS: HYDROcodone/APAP 15 ML SOLUTION PO PRN ×4 (05:12→23:39)
[2020-10-10 06:26] LABS: Glucose,Whole Blood 108 mg/dL (75-99)
[2020-10-10 06:35] LABS: African American GFR (CKD) >90 (>60 ml/min/1.73 sqM); Anion Gap 10 mmol/L; Blood Urea Nitrogen 12 mg/dL (9-20); Calcium 9.7 mg/dL (8.4-10.2); Carbon Dioxide 26 mmol/L (22-30); Chloride 100 mmol/L (98-107); Glucose 118 mg/dL (74-99); Magnesium 1.9 mg/dL (1.6-2.3); Non-African American GFR(CKD) 82 (>60 ml/min/1.73 sqM); Potassium 4.3 mmol/L (3.5-5.1); Sodium 136 mmol/L (137-145)
[2020-10-10] MEDS: MAG HYDROX/AL HYDROX/SIMETH 30 ML CUP PO SCH ×4 (08:02→21:27)
[2020-10-10] MEDS: HYDROmorphone 1 MG/ML 1 ML SYRINGE IVP PRN ×3 (08:02→21:27)
[2020-10-10] MEDS: hydroCHLOROthiazide 12.5 MG CAP PO SCH (08:02)
[2020-10-10] MEDS: PANTOPRAZOLE 40 MG/10 ML VIAL IV SCH (08:02)
[2020-10-10] MEDS: HEPARIN SODIUM,PORCINE/PF 5,000 UNIT/0.5 ML SYRINGE SQ SCH ×3 (08:02→23:40)
[2020-10-10] MEDS: METOPROLOL TARTRATE 50 MG TAB PO SCH ×2 (08:02→21:27)
[2020-10-10] MEDS: lisinopriL 10 MG TAB PO SCH (08:02)
[2020-10-10] MEDS: MAGNESIUM OXIDE 400 MG TAB PO SCH (08:03)
[2020-10-10 11:29] LABS: Glucose,Whole Blood 100 mg/dL (75-99)
--- NOTE | 2020-10-10 13:04 | P.PN ---
Subjective Progress Note Date: 10/10/20 CHIEF COMPLAINT: Abdominal pain HISTORY OF PRESENT ILLNESS: Patient is followed for abdominal ileus. Patient is having flatus. He is hungry and feels that if he had more to eat he would produce a bowel movement. He did have some nausea this morning. He is currently on a full liquid diet. Patient's brenna have been removed. Afebrile. PHYSICAL EXAM: VITAL SIGNS: Reviewed. GENERAL: Well-developed in no acute distress. HEENT: No sclera icterus. Extraocular movements grossly intact. Moist buccal mucosa. Head is atraumatic, normocephalic. ABDOMEN: Soft. Nondistended. Incision clean dry and intact. Mild tenderness around incision site NEUROLOGIC: Alert and oriented. Cranial nerves II through XII grossly intact. ASSESSMENT: 1. Ileus 2. Recent small bowel obstruction secondary to adhesions. Status post lysis of extensive adhesions, repair of incisional hernia and partial omentectomy completed on 09/21/2020 PLAN: -Continue full liquid diet -Continue TPN for nutrition support until appetite increases -Encouraged patient ambulates -Continue pain medication as needed -Continue antiemetics as needed -Continue GI and DVT prophylaxis Physician Natural Foods Clerk note has been reviewed by physician. Signing provider agrees with the documented findings, assessment, and plan of care. Objective - Vital Signs Vital signs: Vital Signs Temp 98.0 F 10/10/20 07:41 Pulse 81 10/10/20 07:41 Resp 17 10/10/20 07:41 BP 130/79 10/10/20 07:41 Pulse Ox 96 10/10/20 07:41 Intake & Output 10/09/20 10/10/20 10/10/20 18:59 06:59 18:59 Intake Total 1660 Balance 1660 Intake: Intake, IV Titration 1660 Amount Magnesium Sulfate-D5w Pmx 1200 1 gm In Dextrose/Water 1 100ml.bag @ 100 mls/hr IVPB Q1H [facility] Rx#: [id number] Parenteral Electrolytes 360 20 ml Magnesium Sulfate gm 1 gm Sodium Acetate 20 meq In Amino Acid 5%- D15w 1,000 ml @ 75 mls/hr IV .BY DURATION [facility] Rx#: [id number] Piperacillin-Tazobactam 3 100 .375 gm In Sodium Chloride 0.9% 100 ml @ 25 mls/hr IVPB Q8HR [facility] Rx# :[id number] Other: Voiding Method Toilet Toilet Urinal # Voids 2 - Labs CBC & Chem 7: 10/04/20 07:05 10/10/20 05:31 Labs: Abnormal Lab Results - Last 24 Hours (Table) 10/10/20 10/10/20 10/10/20 Range/Units 00:05 05:31 06:25 Sodium 136 L (137-145) mmol/L Glucose 118 H (74-99) mg/dL POC Glucose (mg/dL) 113 H 108 H (75-99) mg/dL 10/10/20 Range/Units 11:27 Sodium (137-145) mmol/L Glucose (74-99) mg/dL POC Glucose (mg/dL) 100 H (75-99) mg/dL
[2020-10-10] MEDS: 1: MVI, ADULT NO.4 WITH VIT K 10 ML, TRACE (CONC-1ML/DOSE) 1 ML, PARENTERAL ELECTROLYTES IV SCH ×6 (14:54)
--- NOTE | 2020-10-10 15:57 | P.PN ---
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 Patient is currently residing in [facility]. Patient was admitted to the hospital from September 12 through September 27 which time he was treated for partial small bowel obstruction s/p partial omentectomy, lysis of adhesions and repair of incisional hernia 09/21 Dr. Fernandez. Patient was discharged back to the long-term on September 27. He states he's had a bowel movement yesterday and these had increasing abdominal pain and nausea and unable to eat. Patient was brought into [facility] emergency center for evaluation. Patient was found to be afebrile, 107, blood pressure 142/89, pulse ox 98% on room air. initial heart rate 121 with repeat 101, blood pressure 119/86, pulse ox 97% on room air. WBC 16.9, hemoglobin 12.8, platelet count 741. Sodium 133, potassium 4.4, chloride 96, CO2 27, BUN 15 creatinine 1.18. Blood sugar 94. Troponin negative. CK 43. Urinalysis yellow, protein 3+, negative for infection. CAT scan of the abdomen and pelvis with contrast revealed marked dilated small bowel and dilated stomach suggestive of mechanical mid small bowel obstruction. This could be due to some adhesions in the mid abdomen. Obstruction is new compared to old exam. There is minimal free air in the pelvis probably related to intestinal obstruction. Patient has been admitted and consult in place with Dr. Fernandez. 09/30: Patient has NG tube in place. He denies passing any gas and having a bowel movement. Patient has been seen by general surgery for ileus versus small bowel obstruction. Hurricaine spray added for irritation to mucous membranes from NG tube. 2 officers remain at the bedside. Patient has been afebrile, heart rate 106, blood pressure 136/92, pulse ox 97% on room air. Repeat blood work reveals WBC 14.3, hemoglobin 11.2 completed a couple center 73. Sodium 131, potassium 4.6, chloride 98, CO2 21, BUN 13 and creatinine 1.09. Blood sugars are running between 66 and 106. Patient is on IV fluids dextrose 5% half normal saline which will be changed to D5 0.9 normal saline due to low sodium. He is on heparin subcu for DVT prophylaxis and Protonix for GI prophylaxis. Patient also has morphine available and Zofran. 10/01: Patient has been afebrile, heart rate 99, blood pressure 160/88, pulse ox 98% on room air. Blood sugars running between 85 and 106. Patient complains of RUQ pain, he has not passed gas, no bowel movement. He has had large output from NG tube yellow-brown fluid. He also complains of some nausea and insomnia for which Benadryl will be added and patient will need to ask for a period patient has 2 officers in the room and they state that he walked in the hallway yesterday. Repeat blood work has been ordered. 10/02: Patient has been afebrile, heart rate 115, blood pressure 160/95, pulse ox 97% on room air. Patient started on IV Lopressor scheduled and until nothing by mouth status is discontinued. Blood sugars are running between 99 and 114. Patient states he slept well last night. He is not passing gas and is not having a bowel movement. NG tube remains in place with bile-colored fluid re turn. Patient is complaining of more right upper abdominal pain today. Zosyn added. Abdominal x-ray reveals no bowel obstruction. No large pneumoperitoneum. Atelectasis in the lung bases. Some spirometry added. WBC 10.9, hemoglobin 11, platelet count 802. Electrolytes within normal limits. BUN 6 and creatinine 1. Blood sugars running between 99 and 114. 10/03 patient seen for follow-up today, he has still an NG tube, and draining bilious fluid, no fecaloid material noted, patient's x-ray shows no significant pattern for obstruction, patient is being seen by general surgery, who would decide later today on a small bowel follow-through, no complaints today of chest pain no palpitations, has some practice today, no bowel movements yet. Patient has no leg cramps leg pain, no new back pain, safety officers at bedside, no agitation noted, no new labs for review today, we will obtain one for tomorrow morning until IV Zosyn, last hemoglobin was 11.0, WBC count 10.9, no metabolic acidosis, and the hypokalemia noted. 10/04 the patient is better comfortable today, still with an NG tube, and draining bilious fluid, has flat this day, clinical exam shows normal bowel sounds, no bowel movement yet. We're going to start TPN today, with PICC line placement, consult with dietitian lab soles hemoglobin 11.1, WBC 9.7, platelet 836, glucose 103, creatinine 1.15, potassium 4.3, sodium 141 10/05 patient is still nothing by mouth, NG tube, general surgery has seen the patient, has improvement on the ileus clinically, flat is present, no stools, they might start on clear liquid diet today, TPN is infusing, no new difficulties. No chest pain no shortness breath, no edema. 19, patient follow-up, still NG tube, no bowel movement, has been ambulating, NG tube is in place. Patient's currently nothing by mouth, still with TPN infusions. Patient has GERD symptoms, start Maalox plus, x-rays of the abdomen to be done today, vitals are stable, no fever, antibiotics to infusing. Sec urity officers, at bedside for vigilance stable 10/07: Patient is comfortable today, as the NG tube has been taken out today, popsicles are served to some practice, no bowel movement. Still with right upper quadrant tenderness and the parastomal incisional location, no nausea no vomiting, no fever no chest pain, no leg swelling or edema. TPN is infusing, this would be discontinued once oral intake is improved 10/08 patient comfortable denies any nausea or vomiting. Continues to remain on clear liquid diet. He denies any bowel movement today but does have a small episode of bowel movement yesterday. Vitals are reviewed patient is afebrile pulse 87 respiratory rate 17 and blood pressure 112/78. Sodium 134 potassium 4 chloride 98 BUN 15 creatinine 1.13 glucose Controlled phosphorus 4.6 magnesium 1.9. Continue clear liquid diet encourage ambulation to patient examined bedside. He is tolerating full liquid diet denies any nausea or vomiting. Patient denies any abdominal pain. Vitals are reviewed patient is 98.3 pulse 82 blood pressure 1-222/80 reviewed creatinines 1.19 bun 16 sodium 134. continue to monitor bowel sounds. conservative management patient examined bedside. Continuous to be on full liquid diet. He does endorse bloating and slight nausea. Patient continues to have flatus . Denies any bowel movement Continue full liquid diet. Continue TPN for nutrition support. REVIEW OF SYSTEMS Constitutional: No fever, no chills, no night sweats. No weight change. No weakness, fatigue or lethargy. No daytime sleepiness. EENT: No headache. No blurred vision or double vision, no loss of vision. No loss of Hearing, no ringing in the ears, no dizziness. No nasal drainage or congestion. No epistaxis. No sore throat. Lungs: No shortness of breath, cough, no sputum production. No wheezing. Cardiovascular: No chest pain, no lower extremity edema. No palpitations. No paroxysmal nocturnal dyspnea. No orthopnea. No lightheadedness or dizziness. No syncopal episodes. Abdominal: Reports abdominal pain. Reports nausea, denies vomiting. No diarrhea. Reports constipation. No bloody or tarry stools. Reports loss of appetite. Genitourinary: No dysuria, increased frequency, urgency. No urinary retention. Musculoskeletal: No myalgias. No muscle weakness, no gait dysfunction, no frequent falls. No back pain. No neck pain. Integumentary: No wounds, no lesions. No rash or pruritus. No unusual bruising. No change in hair or nails. Neurologic: No aphasia. No facial droop. No change in mentation. No head injury. No headache. No paralysis. No paresthesia. Psychiatric: No depression. No anxiety. No mood swings. Endocrine: No abnormal blood sugars. No weight change. - Constitutional General appearance: Present: cooperative, no acute distress - EENT Eyes: Present: EOMI, PERRLA, dentition normal, normal appearance ENT: Present: NA/AT, normal oropharynx - Neck Neck: Present: normal ROM - Gastrointestinal General gastrointestinal: Present: decreased bowel sounds, soft, tenderness, central venous incision healed brenna removed - Musculoskeletal Musculoskeletal: Present: strength equal bilaterally - Psychiatric Psychiatric: Present: A&O x's 3, appropriate affect Assessment and plan 1. Recurrent Small bowel obstruction or ileus. Consult with Dr. Fernandez/general surgery appreciated. Switch to follow liquid diet TPN at 75 mL per hour discontinued NG tube, on PPN thru picc today 10/04 dietiian consulted, NG tube discontinued 10/07/2020 2. Recent hospitalization for Partial small bowel obstruction s/p partial omentectomy, lysis of adhesions and repair of incisional hernia 09/21. 3. History of renal cell cancer, stable. 4. Hypertension. Hold oral medications: hydrochlorothiazide 12.5 mg daily, lisinopril 10 mg at bedtime, Lopressor 100 mg twice daily, continue hydralazine 10 mg IV push every 6 hours as needed for systolic blood pressure greater than 160 or diastolic blood pressure greater than 90. On metoprolol oral, 100 mg twice a day, 5. Hyperlipidemia. Hold fenofibrate 160 mg at bedtime. 6. Diabetes mellitus type 2. Hold glipizide 10 mg daily, metformin 1000 mg twice daily, NovoLog scale will be added. 7. Gastroesophageal reflux disease. Continue Protonix 40 mg daily IV. 8. Chronic back pain. 9. History of SVT. Continue Lopressor. 10. DVT prophylaxis. Heparin subcu. DISCHARGE PLAN Return To Half-Way. 2 officers are at bedside. Objective - Vital Signs Vital signs: Vital Signs Temp 97.7 F 10/10/20 14:00 Pulse 79 10/10/20 14:00 Resp 18 10/10/20 14:00 BP 128/71 10/10/20 14:00 Pulse Ox 95 10/10/20 14:00 Intake & Output 10/09/20 10/10/20 10/10/20 18:59 06:59 18:59 Intake Total 1660 777 Balance 1660 777 Weight 120.656 kg Intake: Intake, IV Titration 1660 777 Amount Magnesium Sulfate-D5w Pmx 1200 1 gm In Dextrose/Water 1 100ml.bag @ 100 mls/hr IVPB Q1H [facility] Rx#: [id number] Mvi, Adult No.4 with Vit 777 K 10 ml Trace (Conc-1Ml/ Dose) 1 ml Parenteral Electrolytes 20 ml Magnesium Sulfate gm 1 gm Sodium Acetate 20 meq In Amino Acid 5%-D15w 1,000 ml @ 75 mls/hr IV .BY DURATION [facility] Rx#: [id number] Parenteral Electrolytes 360 20 ml Magnesium Sulfate gm 1 gm Sodium Acetate 20 meq In Amino Acid 5%- D15w 1,000 ml @ 75 mls/hr IV .BY DURATION [facility] Rx#: [id number] Piperacillin-Tazobactam 3 100 .375 gm In Sodium Chloride 0.9% 100 ml @ 25 mls/hr IVPB Q8HR [facility] Rx# :[id number] Other: Voiding Method Toilet Toilet Urinal # Voids 2 - Labs CBC & Chem 7: 10/04/20 07:05 10/10/20 05:31 Labs: Abnormal Lab Results - Last 24 Hours (Table) 10/10/20 10/10/20 10/10/20 Range/Units 00:05 05:31 06:25 Sodium 136 L (137-145) mmol/L Glucose 118 H (74-99) mg/dL POC Glucose (mg/dL) 113 H 108 H (75-99) mg/dL 10/10/20 Range/Units 11:27 Sodium (137-145) mmol/L Glucose (74-99) mg/dL POC Glucose (mg/dL) 100 H (75-99) mg/dL
[2020-10-10 16:46] LABS: Glucose,Whole Blood 97 mg/dL (75-99)
[2020-10-10 23:33] LABS: Glucose,Whole Blood 113 mg/dL (75-99)
[2020-10-11] MEDS: HYDROmorphone 1 MG/ML 1 ML SYRINGE IVP PRN ×2 (02:51→05:53)
[2020-10-11] MEDS: DEXTROSE 5%-0.9% NACL 1,000 ML IV SCH ×3 (03:59→11:16)
[2020-10-11] MEDS: INSULIN ASPART (NovoLOG) 100 UNIT/ML VIAL SQ SCH ×3 (05:50→17:31)
[2020-10-11 05:52] LABS: Glucose,Whole Blood 105 mg/dL (75-99)
[2020-10-11 06:55] LABS: African American GFR (CKD) >90 (>60 ml/min/1.73 sqM); Anion Gap 9 mmol/L; Blood Urea Nitrogen 13 mg/dL (9-20); Carbon Dioxide 26 mmol/L (22-30); Chloride 100 mmol/L (98-107); Glucose 103 mg/dL (74-99); Magnesium 1.8 mg/dL (1.6-2.3); Non-African American GFR(CKD) 85 (>60 ml/min/1.73 sqM); Phosphorus 4.8 mg/dL (2.5-4.5); Potassium 4.2 mmol/L (3.5-5.1); Sodium 135 mmol/L (137-145)
[2020-10-11] MEDS: 1: MVI, ADULT NO.4 WITH VIT K 10 ML, TRACE (CONC-1ML/DOSE) 1 ML, PARENTERAL ELECTROLYTES IV SCH ×12 (07:13→11:15)
[2020-10-11] MEDS: MAG HYDROX/AL HYDROX/SIMETH 30 ML CUP PO SCH ×4 (07:58→21:15)
[2020-10-11] MEDS: HYDROcodone/APAP 15 ML SOLUTION PO PRN ×3 (07:58→20:07)
[2020-10-11] MEDS: HEPARIN SODIUM,PORCINE/PF 5,000 UNIT/0.5 ML SYRINGE SQ SCH ×3 (07:58→23:46)
[2020-10-11] MEDS: hydroCHLOROthiazide 12.5 MG CAP PO SCH (07:59)
[2020-10-11] MEDS: METOPROLOL TARTRATE 50 MG TAB PO SCH ×2 (07:59→20:07)
[2020-10-11] MEDS: PANTOPRAZOLE 40 MG/10 ML VIAL IV SCH (07:59)
[2020-10-11] MEDS: lisinopriL 10 MG TAB PO SCH (07:59)
[2020-10-11] MEDS: MAGNESIUM OXIDE 400 MG TAB PO SCH (07:59)
[2020-10-11 11:44] LABS: Glucose,Whole Blood 102 mg/dL (75-99)
--- NOTE | 2020-10-11 12:34 | P.PN ---
Subjective Progress Note Date: 10/11/20 CHIEF COMPLAINT: Abdominal pain HISTORY OF PRESENT ILLNESS: Patient is followed for abdominal ileus. Patient is having flatus. He is tolerating full liquids. He has had no bowel movement yet. Afebrile. Sodium 135 potassium 4.2 magnesium 1.8 phosphorus 4.8 Patient seen and examined with Dr. travis PHYSICAL EXAM: VITAL SIGNS: Reviewed. GENERAL: Well-developed in no acute distress. HEENT: No sclera icterus. Extraocular movements grossly intact. Moist buccal mucosa. Head is atraumatic, normocephalic. ABDOMEN: Soft. Nondistended. Incision clean dry and intact. Mild tenderness around incision site NEUROLOGIC: Alert and oriented. Cranial nerves II through XII grossly intact. ASSESSMENT: 1. Ileus 2. Recent small bowel obstruction secondary to adhesions. Status post lysis of extensive adhesions, repair of incisional hernia and partial omentectomy completed on 09/21/2020 PLAN: -Discontinue IV Dilaudid -Continue full liquid diet -Continue TPN for nutrition support until appetite increases -Encouraged patient ambulates -Continue pain medication as needed -Continue antiemetics as needed -Continue GI and DVT prophylaxis Physician A P Supervisor note has been reviewed by physician. Signing provider agrees with the documented findings, assessment, and plan of care. Objective - Vital Signs Vital signs: Vital Signs Temp 98.1 F 10/11/20 07:57 Pulse 72 10/11/20 07:57 Resp 16 10/11/20 07:57 BP 130/77 10/11/20 07:57 Pulse Ox 98 10/11/20 07:57 Intake & Output 10/10/20 10/11/20 10/11/20 18:59 06:59 18:59 Intake Total 777 557 Balance 777 557 Weight 120.656 kg Intake: Intake, IV Titration 777 557 Amount Mvi, Adult No.4 with Vit 777 557 K 10 ml Trace (Conc-1Ml/ Dose) 1 ml Parenteral Electrolytes 20 ml Magnesium Sulfate gm 1 gm Sodium Acetate 20 meq In Amino Acid 5%-D15w 1,000 ml @ 75 mls/hr IV .BY DURATION [facility] Rx#: [id number] Other: Voiding Method Toilet Toilet Toilet # Voids 3 3 - Labs CBC & Chem 7: 10/04/20 07:05 10/11/20 06:01 Labs: Abnormal Lab Results - Last 24 Hours (Table) 10/10/20 10/11/20 10/11/20 Range/Units 23:32 05:49 06:01 Sodium 135 L (137-145) mmol/L Glucose 103 H (74-99) mg/dL POC Glucose (mg/dL) 113 H 105 H (75-99) mg/dL Phosphorus 4.8 H (2.5-4.5) mg/dL Triglycerides (0.0-149.0) mg/dL 10/11/20 10/11/20 Range/Units 06:01 11:38 Sodium (137-145) mmol/L Glucose (74-99) mg/dL POC Glucose (mg/dL) 102 H (75-99) mg/dL Phosphorus (2.5-4.5) mg/dL Triglycerides 376.0 H (0.0-149.0) mg/dL
--- NOTE | 2020-10-11 15:31 | P.PN ---
Subjective Progress Note Date: 10/11/20 This is a 49-year-old male patient of [facility], patient follows with Rosalia Gallagher [employer], with past medical history of hypertension, hyperlipidemia, diabetes mellitus type 2, gastroesophageal reflux disease, chronic back pain, SVT, renal cell cancer, peptic ulcer disease, generalized anxiety disorder. Patient is currently residing in [facility]. Patient was admitted to the hospital from September 12 through September 27 which time he was treated for partial small bowel obstruction s/p partial omentectomy, lysis of adhesions and repair of incisional hernia 09/21 Dr. Fernandez. Patient was discharged back to the [facility] on September 27. He states he's had a bowel movement yesterday and these had increasing abdominal pain and nausea and unable to eat. Patient was brought into [facility] emergency center for evaluation. Patient was found to be afebrile, 107, blood pressure 142/89, pulse ox 98% on room air. initial heart rate 121 with repeat 101, blood pressure 119/86, pulse ox 97% on room air. WBC 16.9, hemoglobin 12.8, platelet count 741. Sodium 133, potassium 4.4, chloride 96, CO2 27, BUN 15 creatinine 1.18. Blood sugar 94. Troponin negative. CK 43. Urinalysis yellow, protein 3+, negative for infection. CAT scan of the abdomen and pelvis with contrast revealed marked dilated small bowel and dilated stomach suggestive of mechanical mid small bowel obstruction. This could be due to some adhesions in the mid abdomen. Obstruction is new compared to old exam. There is minimal free air in the pelvis probably related to intestinal obstruction. Patient has been admitted and consult in place with Dr. Fernandez. 09/30: Patient has NG tube in place. He denies passing any gas and having a bowel movement. Patient has been seen by general surgery for ileus versus small bowel obstruction. Hurricaine spray added for irritation to mucous membranes from NG tube. 2 officers remain at the bedside. Patient has been afebrile, heart rate 106, blood pressure 136/92, pulse ox 97% on room air. Repeat blood work reveals WBC 14.3, hemoglobin 11.2 completed a couple center 73. Sodium 131, potassium 4.6, chloride 98, CO2 21, BUN 13 and creatinine 1.09. Blood sugars are running between 66 and 106. Patient is on IV fluids dextrose 5% half normal saline which will be changed to D5 0.9 normal saline due to low sodium. He is on heparin subcu for DVT prophylaxis and Protonix for GI prophylaxis. Patient also has morphine available and Zofran. 10/01: Patient has been afebrile, heart rate 99, blood pressure 160/88, pulse ox 98% on room air. Blood sugars running between 85 and 106. Patient complains of RUQ pain, he has not passed gas, no bowel movement. He has had large output from NG tube yellow-brown fluid. He also complains of some nausea and insomnia for which Benadryl will be added and patient will need to ask for a period patient has 2 officers in the room and they state that he walked in the hallway yesterday. Repeat blood work has been ordered. 10/02: Patient has been afebrile, heart rate 115, blood pressure 160/95, pulse ox 97% on room air. Patient started on IV Lopressor scheduled and until nothing by mouth status is discontinued. Blood sugars are running between 99 and 114. Patient states he slept well last night. He is not passing gas and is not having a bowel movement. NG tube remains in place with bile-colored fluid re turn. Patient is complaining of more right upper abdominal pain today. Zosyn added. Abdominal x-ray reveals no bowel obstruction. No large pneumoperitoneum. Atelectasis in the lung bases. Some spirometry added. WBC 10.9, hemoglobin 11, platelet count 802. Electrolytes within normal limits. BUN 6 and creatinine 1. Blood sugars running between 99 and 114. 10/03 patient seen for follow-up today, he has still an NG tube, and draining bilious fluid, no fecaloid material noted, patient's x-ray shows no significant pattern for obstruction, patient is being seen by general surgery, who would decide later today on a small bowel follow-through, no complaints today of chest pain no palpitations, has some practice today, no bowel movements yet. Patient has no leg cramps leg pain, no new back pain, safety officers at bedside, no agitation noted, no new labs for review today, we will obtain one for tomorrow morning until IV Zosyn, last hemoglobin was 11.0, WBC count 10.9, no metabolic acidosis, and the hypokalemia noted. 10/04 the patient is better comfortable today, still with an NG tube, and draining bilious fluid, has flat this day, clinical exam shows normal bowel sounds, no bowel movement yet. We're going to start TPN today, with PICC line placement, consult with dietitian lab soles hemoglobin 11.1, WBC 9.7, platelet 836, glucose 103, creatinine 1.15, potassium 4.3, sodium 141 10/05 patient is still nothing by mouth, NG tube, general surgery has seen the patient, has improvement on the ileus clinically, flat is present, no stools, they might start on clear liquid diet today, TPN is infusing, no new difficulties. No chest pain no shortness breath, no edema. 19, patient follow-up, still NG tube, no bowel movement, has been ambulating, NG tube is in place. Patient's currently nothing by mouth, still with TPN infusions. Patient has GERD symptoms, start Maalox plus, x-rays of the abdomen to be done today, vitals are stable, no fever, antibiotics to infusing. Sec urity officers, at bedside for vigilance stable 10/07: Patient is comfortable today, as the NG tube has been taken out today, popsicles are served to some practice, no bowel movement. Still with right upper quadrant tenderness and the parastomal incisional location, no nausea no vomiting, no fever no chest pain, no leg swelling or edema. TPN is infusing, this would be discontinued once oral intake is improved 10/08 patient comfortable denies any nausea or vomiting. Continues to remain on clear liquid diet. He denies any bowel movement today but does have a small episode of bowel movement yesterday. Vitals are reviewed patient is afebrile pulse 87 respiratory rate 17 and blood pressure 112/78. Sodium 134 potassium 4 chloride 98 BUN 15 creatinine 1.13 glucose Controlled phosphorus 4.6 magnesium 1.9. Continue clear liquid diet encourage ambulation to patient examined bedside. He is tolerating full liquid diet denies any nausea or vomiting. Patient denies any abdominal pain. Vitals are reviewed patient is 98.3 pulse 82 blood pressure 1-222/80 reviewed creatinines 1.19 bun 16 sodium 134. continue to monitor bowel sounds. conservative management patient examined bedside. Continuous to be on full liquid diet. He does endorse bloating and slight nausea. Patient continues to have flatus . Denies any bowel movement Continue full liquid diet. Continue TPN for nutrition support. 10/11 patient examined bedside. Patient complains of left lower quadrant ab dominal pain. No bowel movements. Patient does pass flatus. Continue supportive full liquid diet. Vitals are stable temperature 97.9 pulse 74 respiratory rate 18 blood pressure 129/75. Labs suggestive of sodium 135 BUN 13 creatinine 1.03 phosphorus 4.8 magnesium 1.8 triglycerides high at 376. We will restart fenofibrate Nutrition following to adjust TPN. Blood pressure controlled on current regimen of Lopressor lisinopril and hydrochlorothiazide. Hydromorphone discontinued. Continues to remain on Lane elixir every 6 hours.. REVIEW OF SYSTEMS Constitutional: No fever, no chills, no night sweats. No weight change. No weakness, fatigue or lethargy. No daytime sleepiness. EENT: No headache. No blurred vision or double vision, no loss of vision. No loss of Hearing, no ringing in the ears, no dizziness. No nasal drainage or congestion. No epistaxis. No sore throat. Lungs: No shortness of breath, cough, no sputum production. No wheezing. Cardiovascular: No chest pain, no lower extremity edema. No palpitations. No paroxysmal nocturnal dyspnea. No orthopnea. No lightheadedness or dizziness. No syncopal episodes. Abdominal: Reports abdominal pain. Reports nausea, denies vomiting. No diarrhea. Reports constipation. No bloody or tarry stools. Reports loss of appetite. Genitourinary: No dysuria, increased frequency, urgency. No urinary retention. Musculoskeletal: No myalgias. No muscle weakness, no gait dysfunction, no frequent falls. No back pain. No neck pain. Integumentary: No wounds, no lesions. No rash or pruritus. No unusual bruising. No change in hair or nails. Neurologic: No aphasia. No facial droop. No change in mentation. No head injury. No headache. No paralysis. No paresthesia. Psychiatric: No depression. No anxiety. No mood swings. Endocrine: No abnormal blood sugars. No weight change. - Constitutional General appearance: Present: cooperative, no acute distress - EENT Eyes: Present: EOMI, PERRLA, dentition normal, normal appearance ENT: Present: NA/AT, normal oropharynx - Neck Neck: Present: normal ROM - Gastrointestinal General gastrointestinal: Present: decreased bowel sounds, soft, tenderness, central venous incision healed brenna removed - Musculoskeletal Musculoskeletal: Present: strength equal bilaterally - Psychiatric Psychiatric: Present: A&O x's 3, appropriate affect Assessment and plan 1. Recurrent Small bowel obstruction or ileus. Consult with Dr. Fernandez/general surgery appreciated. Switch to follow full liquid diet TPN at 75 mL per hour discontinued NG tube, on PPN thru [facility] today 10/04 dietiian consulted, NG tube discontinued 10/07/2020 2. Recent hospitalization for Partial small bowel obstruction s/p partial omentectomy, lysis of adhesions and repair of incisional hernia 09/21. 3. History of renal cell cancer, stable. 4. Hypertension. On hydrochlorothiazide 12.5 mg daily, lisinopril 10 mg at bedtime, Lopressor 100 mg twice daily, continue hydralazine 10 mg IV push every 6 hours as needed for systolic blood pressure greater than 160 or diastolic blood pressure greater than 90 5. Hyperlipidemia. Restart fenofibrate 160 mg at bedtime. 6. Diabetes mellitus type 2. Hold glipizide 10 mg daily, metformin 1000 mg twice daily, NovoLog scale will be added. 7. Gastroesophageal reflux disease. Continue Protonix 40 mg daily IV. 8. Chronic back pain. 9. History of SVT. Continue Lopressor. 10. DVT prophylaxis. Heparin subcu. DISCHARGE PLAN Return To [facility]. 2 officers are at bedside. Objective - Vital Signs Vital signs: Vital Signs Temp 97.9 F 10/11/20 14:00 Pulse 74 10/11/20 14:00 Resp 18 10/11/20 14:00 BP 129/75 10/11/20 14:00 Pulse Ox 97 10/11/20 14:00 Intake & Output 10/10/20 10/11/20 10/11/20 18:59 06:59 18:59 Intake Total 777 557 Balance 777 557 Weight 120.656 kg Intake: Intake, IV Titration 777 557 Amount Mvi, Adult No.4 with Vit 777 557 K 10 ml Trace (Conc-1Ml/ Dose) 1 ml Parenteral Electrolytes 20 ml Magnesium Sulfate gm 1 gm Sodium Acetate 20 meq In Amino Acid 5%-D15w 1,000 ml @ 75 mls/hr IV .BY DURATION [facility] Rx#: [id number] Other: Voiding Method Toilet Toilet Toilet # Voids 3 3 - Labs CBC & Chem 7: 10/04/20 07:05 10/11/20 06:01 Labs: Abnormal Lab Results - Last 24 Hours (Table) 10/10/20 10/11/20 10/11/20 Range/Units 23:32 05:49 06:01 Sodium 135 L (137-145) mmol/L Glucose 103 H (74-99) mg/dL POC Glucose (mg/dL) 113 H 105 H (75-99) mg/dL Phosphorus 4.8 H (2.5-4.5) mg/dL Triglycerides (0.0-149.0) mg/dL 10/11/20 10/11/20 Range/Units 06:01 11:38 Sodium (137-145) mmol/L Glucose (74-99) mg/dL POC Glucose (mg/dL) 102 H (75-99) mg/dL Phosphorus (2.5-4.5) mg/dL Triglycerides 376.0 H (0.0-149.0) mg/dL
[2020-10-11] MEDS: FAT EMULSION 20% 500 ML in EMPTY BAG 1 BAG IV SCH (15:49)
[2020-10-11 16:54] LABS: Glucose,Whole Blood 98 mg/dL (75-99)
[2020-10-11] MEDS: diphenhydrAMINE 50 MG/ML 1 ML VIAL IVP PRN (20:10)
[2020-10-12 00:13] LABS: Glucose,Whole Blood 104 mg/dL (75-99)
[2020-10-12] MEDS: INSULIN ASPART (NovoLOG) 100 UNIT/ML VIAL SQ SCH ×4 (01:53→17:54)
[2020-10-12] MEDS: DEXTROSE 5%-0.9% NACL 1,000 ML IV SCH ×3 (03:34→17:54)
[2020-10-12] MEDS: diphenhydrAMINE 50 MG/ML 1 ML VIAL IVP PRN ×2 (05:08→21:15)
[2020-10-12 05:48] LABS: Glucose,Whole Blood 121 mg/dL (75-99)
[2020-10-12 07:37] LABS: African American GFR (CKD) >90 (>60 ml/min/1.73 sqM); Anion Gap 9 mmol/L; Blood Urea Nitrogen 13 mg/dL (9-20); Carbon Dioxide 26 mmol/L (22-30); Chloride 100 mmol/L (98-107); Glucose 115 mg/dL (74-99); Magnesium 1.8 mg/dL (1.6-2.3); Non-African American GFR(CKD) 82 (>60 ml/min/1.73 sqM); Potassium 4.2 mmol/L (3.5-5.1); Sodium 135 mmol/L (137-145)
[2020-10-12] MEDS: PANTOPRAZOLE 40 MG/10 ML VIAL IV SCH (07:40)
[2020-10-12] MEDS: MAG HYDROX/AL HYDROX/SIMETH 30 ML CUP PO SCH ×4 (07:40→21:15)
[2020-10-12] MEDS: HEPARIN SODIUM,PORCINE/PF 5,000 UNIT/0.5 ML SYRINGE SQ SCH ×3 (07:40→23:38)
[2020-10-12] MEDS: lisinopriL 10 MG TAB PO SCH (07:40)
[2020-10-12] MEDS: hydroCHLOROthiazide 12.5 MG CAP PO SCH (07:40)
[2020-10-12] MEDS: HYDROcodone/APAP 15 ML SOLUTION PO PRN ×3 (07:40→19:38)
[2020-10-12] MEDS: METOPROLOL TARTRATE 50 MG TAB PO SCH ×2 (07:40→21:15)
[2020-10-12] MEDS: MAGNESIUM OXIDE 400 MG TAB PO SCH (07:40)
[2020-10-12] MEDS: 1: MVI, ADULT NO.4 WITH VIT K 10 ML, TRACE (CONC-1ML/DOSE) 1 ML, PARENTERAL ELECTROLYTES IV SCH ×12 (09:32→17:48)
--- NOTE | 2020-10-12 11:32 | P.PN ---
Subjective Progress Note Date: 10/12/20 CHIEF COMPLAINT: Abdominal pain HISTORY OF PRESENT ILLNESS: Patient is followed for abdominal ileus. Patient is having flatus. Patient is eating only a small amount of his full liquids. He was able to eat his oatmeal this morning. He is on TPN. Discussed with dietitian. Patient's TPN will be advanced to goal. He has had no bowel movement yet. Denies any vomiting. He still having abdominal bloating. He reports no nausea this morning. Afebrile. Sodium 135 potassium 4.2 creatinine 1.06 Patient seen and examined with Dr. travis PHYSICAL EXAM: VITAL SIGNS: Reviewed. GENERAL: Well-developed in no acute distress. HEENT: No sclera icterus. Extraocular movements grossly intact. Moist buccal mucosa. Head is atraumatic, normocephalic. ABDOMEN: Soft. Mildly distended Incision clean dry and intact. Mild tenderness around incision site NEUROLOGIC: Alert and oriented. Cranial nerves II through XII grossly intact. ASSESSMENT: 1. Ileus 2. Recent small bowel obstruction secondary to adhesions. Status post lysis of extensive adhesions, repair of incisional hernia and partial omentectomy completed on 09/21/2020 PLAN: -Continue full liquid diet -Continue TPN for nutrition support until appetite increases -Encouraged patient ambulates -Continue pain medication as needed -Continue antiemetics as needed -Continue GI and DVT prophylaxis [employer] note has been reviewed by physician. Signing provider agrees with the documented findings, assessment, and plan of care. Objective - Vital Signs Vital signs: Vital Signs Temp 97.4 F L 10/12/20 07:08 Pulse 84 10/12/20 07:08 Resp 17 10/12/20 07:08 BP 144/87 10/12/20 07:08 Pulse Ox 96 10/12/20 07:08 Intake & Output 10/11/20 10/12/20 10/12/20 18:59 06:59 18:59 Intake Total 557 100 Output Total 600 Balance 557 -600 100 Intake: Intake, IV Titration 557 Amount Mvi, Adult No.4 with Vit 557 K 10 ml Trace (Conc-1Ml/ Dose) 1 ml Parenteral Electrolytes 20 ml Magnesium Sulfate gm 1 gm Sodium Acetate 20 meq In Amino Acid 5%-D15w 1,000 ml @ 75 mls/hr IV .BY DURATION [facility] Rx#: [id number] Oral 100 Output: Urine 600 Other: Voiding Method Toilet # Voids 3 - Labs CBC & Chem 7: 10/04/20 07:05 10/12/20 07:05 Labs: Abnormal Lab Results - Last 24 Hours (Table) 10/11/20 10/12/20 10/12/20 Range/Units 11:38 00:08 05:47 Sodium (137-145) mmol/L Glucose (74-99) mg/dL POC Glucose (mg/dL) 102 H 104 H 121 H (75-99) mg/dL 10/12/20 Range/Units 07:05 Sodium 135 L (137-145) mmol/L Glucose 115 H (74-99) mg/dL POC Glucose (mg/dL) (75-99) mg/dL
[2020-10-12 12:03] LABS: Glucose,Whole Blood 114 mg/dL (75-99)
[2020-10-12] MEDS: FENOFIBRATE 160 MG TAB PO SCH (15:18)
[2020-10-12 16:59] LABS: Glucose,Whole Blood 111 mg/dL (75-99)
--- NOTE | 2020-10-12 17:01 | P.PN ---
Subjective Progress Note Date: 10/12/20 This is a 49-year-old male patient of [facility], patient follows with Rosalia Gallagher BUSINESS ASSOCIATE, with past medical history of hypertension, hyperlipidemia, diabetes mellitus type 2, gastroesophageal reflux disease, chronic back pain, SVT, renal cell cancer, peptic ulcer disease, generalized anxiety disorder. Patient is currently residing in [facility]. Patient was admitted to the hospital from September 12 through September 27 which time he was treated for partial small bowel obstruction s/p partial omentectomy, lysis of adhesions and repair of incisional hernia 09/21 Dr. Fernandez. [facility] September 27. He states he's had a bowel movement yesterday and these had increasing abdominal pain and nausea and unable to eat. Patient was brought into [facility] emergency center for evaluation. Patient was found to be afebrile, 107, blood pressure 142/89, pulse ox 98% on room air. initial heart rate 121 with repeat 101, blood pressure 119/86, pulse ox 97% on room air. WBC 16.9, hemoglobin 12.8, platelet count 741. Sodium 133, potassium 4.4, chloride 96, CO2 27, BUN 15 creatinine 1.18. Blood sugar 94. Troponin negative. CK 43. Urinalysis yellow, protein 3+, negative for infection. CAT scan of the abdomen and pelvis with contrast revealed marked dilated small bowel and dilated stomach suggestive of mechanical mid small bowel obstruction. This could be due to some adhesions in the mid abdomen. Obstruction is new compared to old exam. There is minimal free air in the pelvis probably related to intestinal obstruction. Patient has been admitted and consult in place with Dr. Fernandez. 09/30: Patient has NG tube in place. He denies passing any gas and having a bowel movement. Patient has been seen by general surgery for ileus versus small bowel obstruction. Hurricaine spray added for irritation to mucous membranes from NG tube. 2 officers remain at the bedside. Patient has been afebrile, heart rate 106, blood pressure 136/92, pulse ox 97% on room air. Repeat blood work reveals WBC 14.3, hemoglobin 11.2 completed a couple center 73. Sodium 131, potassium 4.6, chloride 98, CO2 21, BUN 13 and creatinine 1.09. Blood sugars are running between 66 and 106. Patient is on IV fluids dextrose 5% half normal saline which will be changed to D5 0.9 normal saline due to low sodium. He is on heparin subcu for DVT prophylaxis and Protonix for GI prophylaxis. Patient also has morphine available and Zofran. 10/01: Patient has been afebrile, heart rate 99, blood pressure 160/88, pulse ox 98% on room air. Blood sugars running between 85 and 106. Patient complains of RUQ pain, he has not passed gas, no bowel movement. He has had large output from NG tube yellow-brown fluid. He also complains of some nausea and insomnia for which Benadryl will be added and patient will need to ask for a period patient has 2 officers in the room and they state that he walked in the hallway yesterday. Repeat blood work has been ordered. 10/02: Patient has been afebrile, heart rate 115, blood pressure 160/95, pulse ox 97% on room air. Patient started on IV Lopressor scheduled and until nothing by mouth status is discontinued. Blood sugars are running between 99 and 114. Patient states he slept well last night. He is not passing gas and is not having a bowel movement. NG tube remains in place with bile-colored fluid re turn. Patient is complaining of more right upper abdominal pain today. Zosyn added. Abdominal x-ray reveals no bowel obstruction. No large pneumoperitoneum. Atelectasis in the lung bases. Some spirometry added. WBC 10.9, hemoglobin 11, platelet count 802. Electrolytes within normal limits. BUN 6 and creatinine 1. Blood sugars running between 99 and 114. 10/03 patient seen for follow-up today, he has still an NG tube, and draining bilious fluid, no fecaloid material noted, patient's x-ray shows no significant pattern for obstruction, patient is being seen by general surgery, who would decide later today on a small bowel follow-through, no complaints today of chest pain no palpitations, has some practice today, no bowel movements yet. Patient has no leg cramps leg pain, no new back pain, safety officers at bedside, no agitation noted, no new labs for review today, we will obtain one for tomorrow morning until IV Zosyn, last hemoglobin was 11.0, WBC count 10.9, no metabolic acidosis, and the hypokalemia noted. 10/04 the patient is better comfortable today, still with an NG tube, and draining bilious fluid, has flat this day, clinical exam shows normal bowel sounds, no bowel movement yet. We're going to start TPN today, with PICC line placement, consult with dietitian lab soles hemoglobin 11.1, WBC 9.7, platelet 836, glucose 103, creatinine 1.15, potassium 4.3, sodium 141 10/05 patient is still nothing by mouth, NG tube, general surgery has seen the patient, has improvement on the ileus clinically, flat is present, no stools, they might start on clear liquid diet today, TPN is infusing, no new difficulties. No chest pain no shortness breath, no edema. 19, patient follow-up, still NG tube, no bowel movement, has been ambulating, NG tube is in place. Patient's currently nothing by mouth, still with TPN infusions. Patient has GERD symptoms, start Maalox plus, x-rays of the abdomen to be done today, vitals are stable, no fever, antibiotics to infusing. Sec urity officers, at bedside for vigilance stable 10/07: Patient is comfortable today, as the NG tube has been taken out today, popsicles are served to some practice, no bowel movement. Still with right upper quadrant tenderness and the parastomal incisional location, no nausea no vomiting, no fever no chest pain, no leg swelling or edema. TPN is infusing, this would be discontinued once oral intake is improved 10/08 patient comfortable denies any nausea or vomiting. Continues to remain on clear liquid diet. He denies any bowel movement today but does have a small episode of bowel movement yesterday. Vitals are reviewed patient is afebrile pulse 87 respiratory rate 17 and blood pressure 112/78. Sodium 134 potassium 4 chloride 98 BUN 15 creatinine 1.13 glucose Controlled phosphorus 4.6 magnesium 1.9. Continue clear liquid diet encourage ambulation to patient examined bedside. He is tolerating full liquid diet denies any nausea or vomiting. Patient denies any abdominal pain. Vitals are reviewed patient is 98.3 pulse 82 blood pressure 1-222/80 reviewed creatinines 1.19 bun 16 sodium 134. continue to monitor bowel sounds. conservative management patient examined bedside. Continuous to be on full liquid diet. He does endorse bloating and slight nausea. Patient continues to have flatus . Denies any bowel movement Continue full liquid diet. Continue TPN for nutrition support. 10/11 patient examined bedside. Patient complains of left lower quadrant ab dominal pain. No bowel movements. Patient does pass flatus. Continue supportive full liquid diet. Vitals are stable temperature 97.9 pulse 74 respiratory rate 18 blood pressure 129/75. Labs suggestive of sodium 135 BUN 13 creatinine 1.03 phosphorus 4.8 magnesium 1.8 triglycerides high at 376. We will restart fenofibrate Nutrition following to adjust TPN. Blood pressure controlled on current regimen of Lopressor lisinopril and hydrochlorothiazide. Hydromorphone discontinued. Continues to remain on [place] elixir every 6 hours.. 10/12 patient examined bedside. Endorses pain in the left lower quadrant which is improved compared to yesterday. He denies any nausea. He did have a bowel movement today. Pain is controlled on [place]. Vitals are reviewed. Labs are reviewed patient has a high triglycerides likely secondary to fat emulsion to TPN. Continue on full liquid diet. Will restart patient on fenofibrate daily REVIEW OF SYSTEMS Constitutional: No fever, no chills, no night sweats. No weight change. No weakness, fatigue or lethargy. No daytime sleepiness. EENT: No headache. No blurred vision or double vision, no loss of vision. No loss of Hearing, no ringing in the ears, no dizziness. No nasal drainage or congestion. No epistaxis. No sore throat. Lungs: No shortness of breath, cough, no sputum production. No wheezing. Cardiovascular: No chest pain, no lower extremity edema. No palpitations. No paroxysmal nocturnal dyspnea. No orthopnea. No lightheadedness or dizziness. No syncopal episodes. Abdominal: Reports abdominal pain. Reports nausea, denies vomiting. No diarrhea. Reports constipation. No bloody or tarry stools. Reports loss of appetite. Genitourinary: No dysuria, increased frequency, urgency. No urinary retention. Musculoskeletal: No myalgias. No muscle weakness, no gait dysfunction, no frequent falls. No back pain. No neck pain. Integumentary: No wounds, no lesions. No rash or pruritus. No unusual bruising. No change in hair or nails. Neurologic: No aphasia. No facial droop. No change in mentation. No head injury. No headache. No paralysis. No paresthesia. Psychiatric: No depression. No anxiety. No mood swings. Endocrine: No abnormal blood sugars. No weight change. - Constitutional General appearance: Present: cooperative, no acute distress - EENT Eyes: Present: EOMI, PERRLA, dentition normal, normal appearance ENT: Present: NA/AT, normal oropharynx - Neck Neck: Present: normal ROM - Gastrointestinal General gastrointestinal: Present: decreased bowel sounds, soft, tenderness right lower quadrant, central venous incision healed brenna removed - Musculoskeletal Musculoskeletal: Present: strength equal bilaterally - Psychiatric Psychiatric: Present: A&O x's 3, appropriate affect Assessment and plan 1. Recurrent Small bowel obstruction or ileus. Consult with Dr. Fernandez/general surgery appreciated. Switch to follow full liquid diet TPN at 75 mL per hour discontinued NG tube, on PPN thru [facility] today 10/04 dietiian consulted, NG tube discontinued 10/07/2020 2. Recent hospitalization for Partial small bowel obstruction s/p partial omentectomy, lysis of adhesions and repair of incisional hernia 09/21. 3. History of renal cell cancer, stable. 4. Hypertension. On hydrochlorothiazide 12.5 mg daily, lisinopril 10 mg at bedtime, Lopressor 100 mg twice daily, continue hydralazine 10 mg IV push every 6 hours as needed for systolic blood pressure greater than 160 or diastolic blood pressure greater than 90 5. Hyperlipidemia. Restart fenofibrate 160 mg at bedtime. 6. Diabetes mellitus type 2. Hold glipizide 10 mg daily, metformin 1000 mg twice daily, NovoLog scale will be added. 7. Gastroesophageal reflux disease. Continue Protonix 40 mg daily IV. 8. Chronic back pain. 9. History of SVT. Continue Lopressor. 10. DVT prophylaxis. Heparin subcu. DISCHARGE PLAN Return To [facility]. 2 officers are at bedside. Objective - Vital Signs Vital signs: Vital Signs Temp 99.2 F 10/12/20 15:08 Pulse 85 10/12/20 15:08 Resp 17 10/12/20 15:08 BP 115/75 10/12/20 15:08 Pulse Ox 97 10/12/20 15:08 Intake & Output 10/11/20 10/12/20 10/12/20 18:59 06:59 18:59 Intake Total 557 150 Output Total 600 Balance 557 -600 150 Weight 120.656 kg Intake: Intake, IV Titration 557 Amount Mvi, Adult No.4 with Vit 557 K 10 ml Trace (Conc-1Ml/ Dose) 1 ml Parenteral Electrolytes 20 ml Magnesium Sulfate gm 1 gm Sodium Acetate 20 meq In Amino Acid 5%-D15w 1,000 ml @ 75 mls/hr IV .BY DURATION SRIKANTH Rx#: [id number] Oral 150 Output: Urine 600 Other: Voiding Method Toilet # Voids 3 - Labs CBC & Chem 7: 10/04/20 07:05 10/12/20 07:05 Labs: Abnormal Lab Results - Last 24 Hours (Table) 10/12/20 10/12/20 10/12/20 Range/Units 00:08 05:47 07:05 Sodium 135 L (137-145) mmol/L Glucose 115 H (74-99) mg/dL POC Glucose (mg/dL) 104 H 121 H (75-99) mg/dL Triglycerides (0.0-149.0) mg/dL 10/12/20 10/12/20 Range/Units 07:05 12:02 Sodium (137-145) mmol/L Glucose (74-99) mg/dL POC Glucose (mg/dL) 114 H (75-99) mg/dL Triglycerides 409.0 H (0.0-149.0) mg/dL
[2020-10-12 23:53] LABS: Glucose,Whole Blood 120 mg/dL (75-99)
[2020-10-13] MEDS: INSULIN ASPART (NovoLOG) 100 UNIT/ML VIAL SQ SCH ×3 (02:49→14:29)
[2020-10-13] MEDS: DEXTROSE 5%-0.9% NACL 1,000 ML IV SCH ×2 (02:50→14:28)
[2020-10-13] MEDS: HYDROcodone/APAP 15 ML SOLUTION PO PRN ×3 (04:34→14:30)
[2020-10-13 05:50] LABS: Glucose,Whole Blood 126 mg/dL (75-99)
[2020-10-13] MEDS: 1: MVI, ADULT NO.4 WITH VIT K 10 ML, TRACE (CONC-1ML/DOSE) 1 ML, PARENTERAL ELECTROLYTES IV SCH ×6 (07:22)
[2020-10-13 07:42] VITALS: BP 140/84; PULSE 84; RESP 18; TEMP 97.6
[2020-10-13] MEDS: lisinopriL 10 MG TAB PO SCH (07:49)
[2020-10-13] MEDS: MAGNESIUM OXIDE 400 MG TAB PO SCH (07:49)
[2020-10-13] MEDS: MAG HYDROX/AL HYDROX/SIMETH 30 ML CUP PO SCH ×2 (07:49→14:29)
[2020-10-13] MEDS: FENOFIBRATE 160 MG TAB PO SCH (07:49)
[2020-10-13] MEDS: hydroCHLOROthiazide 12.5 MG CAP PO SCH (07:49)
[2020-10-13] MEDS: METOPROLOL TARTRATE 50 MG TAB PO SCH (07:49)
[2020-10-13] MEDS: PANTOPRAZOLE 40 MG/10 ML VIAL IV SCH (07:50)
[2020-10-13] MEDS: HEPARIN SODIUM,PORCINE/PF 5,000 UNIT/0.5 ML SYRINGE SQ SCH (07:50)
[2020-10-13 07:53] LABS: African American GFR (CKD) >90 (>60 ml/min/1.73 sqM); Anion Gap 5 mmol/L; Blood Urea Nitrogen 15 mg/dL (9-20); Calcium 9.4 mg/dL (8.4-10.2); Carbon Dioxide 25 mmol/L (22-30); Chloride 105 mmol/L (98-107); Glucose 117 mg/dL (74-99); Magnesium 1.9 mg/dL (1.6-2.3); Non-African American GFR(CKD) 87 (>60 ml/min/1.73 sqM); Potassium 4.5 mmol/L (3.5-5.1); Sodium 135 mmol/L (137-145)
[2020-10-13 11:23] LABS: Glucose,Whole Blood 98 mg/dL (75-99)
--- NOTE | 2020-10-13 11:25 | P.PN ---
Subjective Progress Note Date: 10/13/20 CHIEF COMPLAINT: Abdominal pain HISTORY OF PRESENT ILLNESS: Patient is followed for abdominal ileus. He is now having bowel movements. He is tolerating his full liquid diet. Denies any nausea or vomiting. Afebrile. Sodium 135 potassium 4.5 creatinine 1.00 Patient seen and examined with Dr. travis PHYSICAL EXAM: VITAL SIGNS: Reviewed. GENERAL: Well-developed in no acute distress. HEENT: No sclera icterus. Extraocular movements grossly intact. Moist buccal mucosa. Head is atraumatic, normocephalic. ABDOMEN: Soft. Nondistended Incision clean dry and intact. Mild tenderness around incision site NEUROLOGIC: Alert and oriented. Cranial nerves II through XII grossly intact. ASSESSMENT: 1. Ileus 2. Recent small bowel obstruction secondary to adhesions. Status post lysis of extensive adhesions, repair of incisional hernia and partial omentectomy completed on 09/21/2020 PLAN: -Patient can be discharge from surgical standpoint -Continue full liquid diet until patient seen by surgeon in office -Encouraged patient to ambulate Physician Mortar Carrier note has been reviewed by physician. Signing provider agrees with the documented findings, assessment, and plan of care. Objective - Vital Signs Vital signs: Vital Signs Temp 97.6 F 10/13/20 07:41 Pulse 84 10/13/20 07:41 Resp 18 10/13/20 07:41 BP 140/84 10/13/20 07:41 Pulse Ox 97 10/13/20 07:41 Intake & Output 10/12/20 10/13/20 10/13/20 18:59 06:59 18:59 Intake Total 150 Output Total 1225 Balance 150 -1225 Weight 120.656 kg Intake: Oral 150 Output: Urine 1225 - Labs CBC & Chem 7: 10/04/20 07:05 10/13/20 07:13 Labs: Abnormal Lab Results - Last 24 Hours (Table) 10/12/20 10/12/20 10/12/20 Range/Units 07:05 12:02 16:57 Sodium (137-145) mmol/L Glucose (74-99) mg/dL POC Glucose (mg/dL) 114 H 111 H (75-99) mg/dL Triglycerides 409.0 H (0.0-149.0) mg/dL 10/12/20 10/13/20 10/13/20 Range/Units 23:50 05:48 07:13 Sodium 135 L (137-145) mmol/L Glucose 117 H (74-99) mg/dL POC Glucose (mg/dL) 120 H 126 H (75-99) mg/dL Triglycerides (0.0-149.0) mg/dL
--- NOTE | 2020-10-13 13:06 | P.PN ---
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 Patient is currently residing in [facility]. Patient was admitted to the hospital from September 12 through September 27 which time he was treated for partial small bowel obstruction s/p partial omentectomy, lysis of adhesions and repair of incisional hernia 09/21 Dr. Fernandez. Patient was discharged back to the senior living on September 27. He states he's had a bowel movement yesterday and these had increasing abdominal pain and nausea and unable to eat. Patient was brought into [facility] emergency center for evaluation. Patient was found to be afebrile, 107, blood pressure 142/89, pulse ox 98% on room air. initial heart rate 121 with repeat 101, blood pressure 119/86, pulse ox 97% on room air. WBC 16.9, hemoglobin 12.8, platelet count 741. Sodium 133, potassium 4.4, chloride 96, CO2 27, BUN 15 creatinine 1.18. Blood sugar 94. Troponin negative. CK 43. Urinalysis yellow, protein 3+, negative for infection. CAT scan of the abdomen and pelvis with contrast revealed marked dilated small bowel and dilated stomach suggestive of mechanical mid small bowel obstruction. This could be due to some adhesions in the mid abdomen. Obstruction is new compared to old exam. There is minimal free air in the pelvis probably related to intestinal obstruction. Patient has been admitted and consult in place with Dr. Fernandez. 09/30: Patient has NG tube in place. He denies passing any gas and having a bowel movement. Patient has been seen by general surgery for ileus versus small bowel obstruction. Hurricaine spray added for irritation to mucous membranes from NG tube. 2 officers remain at the bedside. Patient has been afebrile, heart rate 106, blood pressure 136/92, pulse ox 97% on room air. Repeat blood work reveals WBC 14.3, hemoglobin 11.2 completed a couple center 73. Sodium 131, potassium 4.6, chloride 98, CO2 21, BUN 13 and creatinine 1.09. Blood sugars are running between 66 and 106. Patient is on IV fluids dextrose 5% half normal saline which will be changed to D5 0.9 normal saline due to low sodium. He is on heparin subcu for DVT prophylaxis and Protonix for GI prophylaxis. Patient also has morphine available and Zofran. 10/01: Patient has been afebrile, heart rate 99, blood pressure 160/88, pulse ox 98% on room air. Blood sugars running between 85 and 106. Patient complains of RUQ pain, he has not passed gas, no bowel movement. He has had large output from NG tube yellow-brown fluid. He also complains of some nausea and insomnia for which Benadryl will be added and patient will need to ask for a period patient has 2 officers in the room and they state that he walked in the hallway yesterday. Repeat blood work has been ordered. 10/02: Patient has been afebrile, heart rate 115, blood pressure 160/95, pulse ox 97% on room air. Patient started on IV Lopressor scheduled and until nothing by mouth status is discontinued. Blood sugars are running between 99 and 114. Patient states he slept well last night. He is not passing gas and is not having a bowel movement. NG tube remains in place with bile-colored fluid re turn. Patient is complaining of more right upper abdominal pain today. Zosyn added. Abdominal x-ray reveals no bowel obstruction. No large pneumoperitoneum. Atelectasis in the lung bases. Some spirometry added. WBC 10.9, hemoglobin 11, platelet count 802. Electrolytes within normal limits. BUN 6 and creatinine 1. Blood sugars running between 99 and 114. 10/03 patient seen for follow-up today, he has still an NG tube, and draining bilious fluid, no fecaloid material noted, patient's x-ray shows no significant pattern for obstruction, patient is being seen by general surgery, who would decide later today on a small bowel follow-through, no complaints today of chest pain no palpitations, has some practice today, no bowel movements yet. Patient has no leg cramps leg pain, no new back pain, safety officers at bedside, no agitation noted, no new labs for review today, we will obtain one for tomorrow morning until IV Zosyn, last hemoglobin was 11.0, WBC count 10.9, no metabolic acidosis, and the hypokalemia noted. 10/04 the patient is better comfortable today, still with an NG tube, and draining bilious fluid, has flat this day, clinical exam shows normal bowel sounds, no bowel movement yet. We're going to start TPN today, with PICC line placement, consult with dietitian lab soles hemoglobin 11.1, WBC 9.7, platelet 836, glucose 103, creatinine 1.15, potassium 4.3, sodium 141 10/05 patient is still nothing by mouth, NG tube, general surgery has seen the patient, has improvement on the ileus clinically, flat is present, no stools, they might start on clear liquid diet today, TPN is infusing, no new difficulties. No chest pain no shortness breath, no edema. 19, patient follow-up, still NG tube, no bowel movement, has been ambulating, NG tube is in place. Patient's currently nothing by mouth, still with TPN infusions. Patient has GERD symptoms, start Maalox plus, x-rays of the abdomen to be done today, vitals are stable, no fever, antibiotics to infusing. Sec urity officers, at bedside for vigilance stable 10/07: Patient is comfortable today, as the NG tube has been taken out today, popsicles are served to some practice, no bowel movement. Still with right upper quadrant tenderness and the parastomal incisional location, no nausea no vomiting, no fever no chest pain, no leg swelling or edema. TPN is infusing, this would be discontinued once oral intake is improved 10/08 patient comfortable denies any nausea or vomiting. Continues to remain on clear liquid diet. He denies any bowel movement today but does have a small episode of bowel movement yesterday. Vitals are reviewed patient is afebrile pulse 87 respiratory rate 17 and blood pressure 112/78. Sodium 134 potassium 4 chloride 98 BUN 15 creatinine 1.13 glucose Controlled phosphorus 4.6 magnesium 1.9. Continue clear liquid diet encourage ambulation to patient examined bedside. He is tolerating full liquid diet denies any nausea or vomiting. Patient denies any abdominal pain. Vitals are reviewed patient is 98.3 pulse 82 blood pressure 1-222/80 reviewed creatinines 1.19 bun 16 sodium 134. continue to monitor bowel sounds. conservative management patient examined bedside. Continuous to be on full liquid diet. He does endorse bloating and slight nausea. Patient continues to have flatus . Denies any bowel movement Continue full liquid diet. Continue TPN for nutrition support. 10/11 patient examined bedside. Patient complains of left lower quadrant ab dominal pain. No bowel movements. Patient does pass flatus. Continue supportive full liquid diet. Vitals are stable temperature 97.9 pulse 74 respiratory rate 18 blood pressure 129/75. Labs suggestive of sodium 135 BUN 13 creatinine 1.03 phosphorus 4.8 magnesium 1.8 triglycerides high at 376. We will restart fenofibrate Nutrition following to adjust TPN. Blood pressure controlled on current regimen of Lopressor lisinopril and hydrochlorothiazide. Hydromorphone discontinued. Continues to remain on [place] elixir every 6 hours.. 10/12 patient examined bedside. Endorses pain in the left lower quadrant which is improved compared to yesterday. He denies any nausea. He did have a bowel movement today. Pain is controlled on [place]. Vitals are reviewed. Labs are reviewed patient has a high triglycerides likely secondary to fat emulsion to TPN. Continue on full liquid diet. Will restart patient on fenofibrate daily 10/13 patient examined bedside. Improvement in her abdomen pain. He is having regular bowel movements denies any nausea or chest pain or shortness of breath. Patient was evaluated by surgeon and currently planned to be discharged on liquid diet with Glucerna 3 times a day. Patient's medication reconciliation completed. Patient can be discharged from medical standpoint REVIEW OF SYSTEMS Constitutional: No fever, no chills, no night sweats. No weight change. No weakness, fatigue or lethargy. No daytime sleepiness. EENT: No headache. No blurred vision or double vision, no loss of vision. No loss of Hearing, no ringing in the ears, no dizziness. No nasal drainage or congestion. No epistaxis. No sore throat. Lungs: No shortness of breath, cough, no sputum production. No wheezing. Cardiovascular: No chest pain, no lower extremity edema. No palpitations. No paroxysmal nocturnal dyspnea. No orthopnea. No lightheadedness or dizziness. No syncopal episodes. Abdominal: No abdominal pain. Denies nausea, denies vomiting. No diarrhea. Resolved constipation No bloody or tarry stools. Reports loss of appetite. Genitourinary: No dysuria, increased frequency, urgency. No urinary retention. Musculoskeletal: No myalgias. No muscle weakness, no gait dysfunction, no frequent falls. No back pain. No neck pain. Integumentary: No wounds, no lesions. No rash or pruritus. No unusual bruising. No change in hair or nails. Neurologic: No aphasia. No facial droop. No change in mentation. No head injury. No headache. No paralysis. No paresthesia. Psychiatric: No depression. No anxiety. No mood swings. Endocrine: No abnormal blood sugars. No weight change. - Constitutional General appearance: Present: cooperative, no acute distress - EENT Eyes: Present: EOMI, PERRLA, dentition normal, normal appearance ENT: Present: NA/AT, normal oropharynx - Neck Neck: Present: normal ROM - Gastrointestinal General gastrointestinal: Present: decreased bowel sounds, soft, no tenderness, central venous incision healed brenna removed - Musculoskeletal Musculoskeletal: Present: strength equal bilaterally - Psychiatric Psychiatric: Present: A&O x's 3, appropriate affect Assessment and plan 1. Recurrent Small bowel obstruction or ileus. Consult with Dr. Fernandez/general surgery appreciated. Continue to tolerate full liquid diet TPN discontinued. Patient to start Glucerna 3 times a day 2. Recent hospitalization for Partial small bowel obstruction s/p partial omentectomy, lysis of adhesions and repair of incisional hernia 09/21. 3. History of renal cell cancer, stable. 4. Hypertension. On hydrochlorothiazide 12.5 mg daily, lisinopril 10 mg at bedtime, Lopressor 100 mg twice daily, continue hydralazine 10 mg IV push every 6 hours as needed for systolic blood pressure greater than 160 or diastolic blood pressure greater than 90 5. Hyperlipidemia. on fenofibrate 160 mg at bedtime. 6. Diabetes mellitus type 2. restart glipizide 10 mg daily, metformin 1000 mg twice daily, NovoLog scale will be added. 7. Gastroesophageal reflux disease. 8. Chronic back pain. 9. History of SVT. Continue Lopressor. 10. DVT prophylaxis. Heparin subcu. DISCHARGE PLAN Return To Long-Term. 2 officers are at bedside. Objective - Vital Signs Vital signs: Vital Signs Temp 97.6 F 10/13/20 07:41 Pulse 84 10/13/20 07:41 Resp 18 10/13/20 07:41 BP 140/84 10/13/20 07:41 Pulse Ox 97 08/26/21 07:41 Intake & Output 10/12/20 10/13/20 10/13/20 18:59 06:59 18:59 Intake Total 150 Output Total 1225 Balance 150 -1225 Weight 120.656 kg Intake: Oral 150 Output: Urine 1225 - Labs CBC & Chem 7: 10/04/20 07:05 10/13/20 07:13 Labs: Abnormal Lab Results - Last 24 Hours (Table) 10/12/20 10/12/20 10/13/20 Range/Units 16:57 23:50 05:48 Sodium (137-145) mmol/L Glucose (74-99) mg/dL POC Glucose (mg/dL) 111 H 120 H 126 H (75-99) mg/dL 10/13/20 Range/Units 07:13 Sodium 135 L (137-145) mmol/L Glucose 117 H (74-99) mg/dL POC Glucose (mg/dL) (75-99) mg/dL
== END 2020-10-13 14:49 | DRG 388 ==
LOC: EC 22:37 → 4SSUR 09-29 00:58 → EEVIPCON 09-29 00:58
PROVIDERS: ADMIT Internal Medicine Geriatric Medicine; ATTEND Internal Medicine Geriatric Medicine
PROC: 0D9670Z Drainage of Stomach with Drainage Device, Via Natural or Artificial Opening (ICD-10-PCS; 2020-09-29)
PROC: 3E0336Z Introduction of Nutritional Substance into Peripheral Vein, Percutaneous Approach (ICD-10-PCS; 2020-09-29)
PROC: 02HV33Z Insertion of Infusion Device into Superior Vena Cava, Percutaneous Approach (ICD-10-PCS; principal; 2020-10-04 07:30)
DX: K56.50 Intestinal adhesions [bands], unspecified as to partial versus complete obstruction (principal); K65.9 Peritonitis, unspecified; E87.1 Hypo-osmolality and hyponatremia; J98.11 Atelectasis; E87.2 Acidosis; E11.649 Type 2 diabetes mellitus with hypoglycemia without coma; E66.01 Morbid (severe) obesity due to excess calories; E78.1 Pure hyperglyceridemia; E78.5 Hyperlipidemia, unspecified; F17.210 Nicotine dependence, cigarettes, uncomplicated; Z65.3 Problems related to other legal circumstances; F31.9 Bipolar disorder, unspecified; F41.1 Generalized anxiety disorder; F42.9 Obsessive-compulsive disorder, unspecified; F60.3 Borderline personality disorder; G47.00 Insomnia, unspecified; G89.29 Other chronic pain; M54.9 Dorsalgia, unspecified; Z85.528 Personal history of other malignant neoplasm of kidney; I10 Essential (primary) hypertension; I48.91 Unspecified atrial fibrillation; J44.9 Chronic obstructive pulmonary disease, unspecified; K21.9 Gastro-esophageal reflux disease without esophagitis; K31.89 Other diseases of stomach and duodenum; Z98.890 Other specified postprocedural states; Z79.2 Long term (current) use of antibiotics; Z79.84 Long term (current) use of oral hypoglycemic drugs; Z79.899 Other long term (current) drug therapy; Z80.1 Family history of malignant neoplasm of trachea, bronchus and lung; Z87.11 Personal history of peptic ulcer disease; Z90.49 Acquired absence of other specified parts of digestive tract; Z91.041 Radiographic dye allergy status
CPT/HCPCS: 36415; 36573; 74019; 74177; 80048; 80053; 81001; 82330; 82550; 83605; 83735; 83880; 84100; 84134; 84478; 84484; 85025; 85027; 85610; 85730; 93005; 94640; 94760; 96361; 96374; 96375; 99285

== ENCOUNTER 2020-10-14 19:40 | Observation (INO) | payer OTHER ==
[2020-10-14] MEDS ORDERED: ONDANSETRON 4 MG/2 ML VIAL IVP STA (20:04)
[2020-10-14] MEDS ORDERED: MORPHINE SULFATE 4 MG/ML SYRINGE IV STA (20:04)
[2020-10-14] MEDS ORDERED: SODIUM CHLORIDE 0.9% 1,000 ML IV STA (20:04)
[2020-10-14 21:32] LABS: Basophils # (A) 0.1 k/uL (0-0.2); Basophils % (A) 0 %; Eosinophils # (A) 0.1 k/uL (0-0.7); Eosinophils % (A) 0 %; HCT 39.9 % (39.0-53.0); HGB 13.3 gm/dL (13.0-17.5); Lymphocytes # (A) 2.5 k/uL (1.0-4.8); Lymphocytes % (A) 15 %; MCH 29.7 pg (25.0-35.0); MCHC 33.3 g/dL (31.0-37.0); MCV 89.1 fL (80.0-100.0); Mean Platelet Volume 6.7; Monocytes # (A) 0.5 k/uL (0-1.0); Monocytes % (A) 3 %; Neutrophils # (A) 12.9 k/uL (1.3-7.7); Neutrophils % (A) 78 %; Platelet Count 546 k/uL (150-450); RBC 4.48 m/uL (4.30-5.90); RDW 14.3 % (11.5-15.5); WBC 16.4 k/uL (3.8-10.6)
[2020-10-14 21:34] LABS: Calcium 10.2 mg/dL (8.4-10.2); Potassium 4.8 mmol/L (3.5-5.1); Total Protein 6.7 g/dL (6.3-8.2)
[2020-10-14 21:35] LABS: Total Bilirubin 0.3 mg/dL (0.2-1.3)
--- NOTE | 2020-10-14 21:45 | XR ---
EXAMINATION TYPE: XR chest 2V DATE OF EXAM: 10/14/2020 COMPARISON: 09/12/2020 HISTORY: Chest pain abdominal pain TECHNIQUE: FINDINGS: Heart and mediastinum are normal. Lungs are clear. Diaphragm is normal. Bony thorax is inta ct. IMPRESSION: Normal chest. No change.
--- NOTE | 2020-10-14 21:54 | ED ---
General Adult HPI - General Chief complaint: Abdominal Pain Stated complaint: Abd Pain Time Seen by Provider: 10/14/20 19:46 Source: patient, EMS Mode of arrival: EMS Limitations: no limitations - History of Present Illness Initial comments: 49 year-old male patient with recent admission for bowel obstruction with surgery for lysis of adhesions with Dr. Fernandez presents for evaluation of abdominal pain and chest pain. States around 12:00 this afternoon he developed increased pain to the right side abdomen. States he was also having pain in his chest. Denies shortness of breath. Denies dizziness or weakness. States he did have some loose stools today. Denies bloody bowel movements. Denies any fever or chills. States he has been nauseated and has had trouble tolerating his clear liquid diet. Patient denies any recent rash, cough, back pain, numbness, tingling, dizziness, weakness, hematuria, dysuria, urinary urgency, urinary frequency, headache, visual changes, or any other complaints. Does have history of smoking, quit one month ago. Family history of cardiac disease. Personal history of SVT and Type II diabetes. - Related Data Home Medications Medication Instructions Recorded Confirmed hydroCHLOROthiazide [Hydrodiuril] 12.5 mg PO DAILY 11/27/16 10/14/20 Fenofibrate 160 mg PO HS 09/18/17 10/14/20 Pantoprazole Sodium [Protonix] 40 mg PO DAILY 10/12/19 10/14/20 Albuterol Sulfate [Proair Hfa] 1 - 2 puff INHALATION RT-Q6H PRN 08/02/20 10/14/20 metFORMIN HCL [Glucophage] 1,000 mg PO BID 08/02/20 10/14/20 Magnesium Oxide [Mag-Ox] 400 mg PO DAILY 08/16/20 10/14/20 Ciclesonide [Alvesco] 1 puff INHALATION RT-BID 09/12/20 10/14/20 Metoprolol Tartrate [Lopressor] 100 mg PO BID 09/12/20 10/14/20 glipiZIDE [Glucotrol] 10 mg PO DAILY 09/12/20 10/14/20 lisinopriL [Zestril] 10 mg PO DAILY 09/28/20 10/14/20 Previous Rx's Medication Instructions Recorded Acetaminophen Tab [Tylenol Tab] 650 mg PO Q4H PRN #30 tablet 10/13/20 Docusate Oral Soln [Colace Oral 100 mg PO BID PRN ml 10/13/20 Soln] Ibuprofen [Motrin] 600 mg PO Q8HR PRN #30 tab 10/13/20 Mag Hydrox/Al Hydrox/Simeth 30 ml PO QID #1000 ml 10/13/20 [Maalox] Allergies Allergy/AdvReac Type Severity Reaction Status Date / Time Iodinated Contrast Media AdvReac KIDNEY Verified 10/14/20 22:43 [Iodinated Contrast- Oral and IV Dye] Review of Systems ROS Statement: Those systems with pertinent positive or pertinent negative responses have been documented in the HPI. ROS Other: All systems not noted in ROS Statement are negative. Past Medical History Past Medical History: Atrial Fibrillation, Cancer, COPD, Diabetes Mellitus, GI Bleed, Hypertension Additional Past Medical History / Comment(s): RENAL CELL CA, DUODENAL ULCER, HIATAL HERNIA, BORDERLINE PERSONALITY DISORDER, PANIC EPISODES, ANXIETY, OCD, chronic back pain, chronic bronchitis History of Any Multi-Drug Resistant Organisms: None Reported Past Surgical History: Cholecystectomy, Hernia Repair Additional Past Surgical History / Comment(s): duodenal ulcer surgery, left kidney removal, BOWEL OBSTRUCTION SURGERY 10/08 Past Anesthesia/Blood Transfusion Reactions: No Reported Reaction Past Psychological History: Anxiety, Bipolar Smoking Status: Current every day smoker Past Alcohol Use History: None Reported Past Drug Use History: None Reported - Past Family History Father Family Medical History: Cancer Additional Family Medical History / Comment(s): lung cancer General Exam Limitations: no limitations General appearance: alert, in no apparent distress, other (This is a well-developed, well-nourished adult male patient in no acute distress. Vital signs upon presentation are pulse 90, respirations 18, blood pressure 146/96, pulse ox 99% on room air.) ENT exam: Present: normal exam, normal oropharynx, mucous membranes moist Respiratory exam: Present: normal lung sounds bilaterally. Absent: respiratory distress, wheezes, rales, rhonchi, stridor Cardiovascular Exam: Present: regular rate, normal rhythm, normal heart sounds. Absent: systolic murmur, diastolic murmur, rubs, gallop, clicks GI/Abdominal exam: Present: soft, tenderness (Right upper quadrant, right mid abdomen), normal bowel sounds. Absent: distended, guarding, rebound, rigid Neurological exam: Present: alert, oriented X3, CN II-XII intact Psychiatric exam: Present: normal affect, normal mood Skin exam: Present: warm, dry, intact, normal color. Absent: rash Course Vital Signs 10/14/20 10/14/20 10/14/20 19:44 22:10 23:25 Temperature 100.0 F H 98.0 F Pulse Rate 90 101 H Respiratory 18 16 Rate Blood Pressure 146/96 138/98 O2 Sat by Pulse 99 99 Oximetry EKG Findings - EKG Comments: EKG Findings:: EKG obtained at 2004 shows normal sinus rhythm with ventricular rate of 77, [place] interval 134, QRS duration 90, QT 366, QTC 414. No evidence of ST elevation or depression. Medical Decision Making - Medical Decision Making 49-year-old male patient presents to the emergency department accompanied by US Simms for evaluation of abdominal pain. Patient recently was admitted for lysis of adhesions and bowel obstruction, states his symptoms are similar. Physical examination did reveal right mid abdominal and right upper quadrant ten derness. Labs reviewed and did reveal white blood cell count at 16.4. Lactic negative. CT abdomen and pelvis showed small bowel obstruction. He did have elevated temp at 100.0. Spoke to Dr. Fernandez about the CT findings and labs. He recommended admission with IV antibiotics. Case discussed with my attending Dr. Pack. - Lab Data Result diagrams: 10/14/20 21:20 10/14/20 21:20 Lab Results 10/14/20 10/14/20 10/14/20 Range/Units 21:20 21:20 21:20 WBC 16.4 H (3.8-10.6) k/uL RBC 4.48 (4.30-5.90) m/uL Hgb 13.3 (13.0-17.5) gm/dL Hct 39.9 (39.0-53.0) % MCV 89.1 (80.0-100.0) fL MCH 29.7 (25.0-35.0) pg MCHC 33.3 (31.0-37.0) g/dL RDW 14.3 (11.5-15.5) % Plt Count 546 H (150-450) k/uL MPV 6.7 Neutrophils % 78 % Lymphocytes % 15 % Monocytes % 3 % Eosinophils % 0 % Basophils % 0 % Neutrophils # 12.9 H (1.3-7.7) k/uL Lymphocytes # 2.5 (1.0-4.8) k/uL Monocytes # 0.5 (0-1.0) k/uL Eosinophils # 0.1 (0-0.7) k/uL Basophils # 0.1 (0-0.2) k/uL Sodium 134 L (137-145) mmol/L Potassium 4.8 (3.5-5.1) mmol/L Chloride 100 (98-107) mmol/L Carbon Dioxide 23 (22-30) mmol/L Anion Gap 11 mmol/L BUN 16 (9-20) mg/dL Creatinine 1.22 (0.66-1.25) mg/dL Est GFR (CKD-EPI)AfAm 80 (>60 ml/min/1.73 sqM) Est GFR (CKD-EPI)NonAf 69 (>60 ml/min/1.73 sqM) Glucose 96 (74-99) mg/dL Plasma Lactic Acid Jonathan 1.1 (0.7-2.0) mmol/L Calcium 10.2 (8.4-10.2) mg/dL Total Bilirubin 0.3 (0.2-1.3) mg/dL AST 27 (17-59) U/L ALT 22 (4-49) U/L Alkaline Phosphatase 89 (38-126) U/L Troponin I (0.000-0.034) ng/mL Total Protein 6.7 (6.3-8.2) g/dL Albumin 4.0 (3.5-5.0) g/dL Lipase 110 (23-300) U/L Urine Color Urine Appearance (Clear) Urine pH (5.0-8.0) Ur Specific [place] (1.001-1.035) Urine Protein (Negative) Urine Glucose (UA) (Negative) Urine Ketones (Negative) Urine Blood (Negative) Urine Nitrite (Negative) Urine Bilirubin (Negative) Urine Urobilinogen (<2.0) mg/dL Ur Leukocyte Esterase (Negative) Urine RBC (0-5) /hpf Urine WBC (0-5) /hpf Ur Squamous Epith Cells (0-4) /hpf Amorphous Sediment (None) /hpf Hyaline Casts (0-2) /lpf Urine Mucus (None) /hpf 10/14/20 10/14/20 Range/Units 21:20 21:34 WBC (3.8-10.6) k/uL RBC (4.30-5.90) m/uL Hgb (13.0-17.5) gm/dL Hct (39.0-53.0) % MCV (80.0-100.0) fL MCH (25.0-35.0) pg MCHC (31.0-37.0) g/dL RDW (11.5-15.5) % Plt Count (150-450) k/uL MPV Neutrophils % % Lymphocytes % % Monocytes % % Eosinophils % % Basophils % % Neutrophils # (1.3-7.7) k/uL Lymphocytes # (1.0-4.8) k/uL Monocytes # (0-1.0) k/uL Eosinophils # (0-0.7) k/uL Basophils # (0-0.2) k/uL Sodium (137-145) mmol/L Potassium (3.5-5.1) mmol/L Chloride (98-107) mmol/L Carbon Dioxide (22-30) mmol/L Anion Gap mmol/L BUN (9-20) mg/dL Creatinine (0.66-1.25) mg/dL Est GFR (CKD-EPI)AfAm (>60 ml/min/1.73 sqM) Est GFR (CKD-EPI)NonAf (>60 ml/min/1.73 sqM) Glucose (74-99) mg/dL Plasma Lactic Acid Jonathan (0.7-2.0) mmol/L Calcium (8.4-10.2) mg/dL Total Bilirubin (0.2-1.3) mg/dL AST (17-59) U/L ALT (4-49) U/L Alkaline Phosphatase (38-126) U/L Troponin I <0.012 (0.000-0.034) ng/mL Total Protein (6.3-8.2) g/dL Albumin (3.5-5.0) g/dL Lipase (23-300) U/L Urine Color Yellow Urine Appearance Cloudy (Clear) Urine pH 7.0 (5.0-8.0) Ur Specific [place] 1.012 (1.001-1.035) Urine Protein 2+ H (Negative) Urine Glucose (UA) Negative (Negative) Urine Ketones Negative (Negative) Urine Blood Negative (Negative) Urine Nitrite Negative (Negative) Urine Bilirubin Negative (Negative) Urine Urobilinogen <2.0 (<2.0) mg/dL Ur Leukocyte Esterase Negative (Negative) Urine RBC 2 (0-5) /hpf Urine WBC 3 (0-5) /hpf Ur Squamous Epith Cells <1 (0-4) /hpf Amorphous Sediment Rare H (None) /hpf Hyaline Casts 11 H (0-2) /lpf Urine Mucus Many H (None) /hpf - Radiology Data Radiology results: report reviewed, image reviewed CT abdomen and pelvis was obtained. Were prescription its entirety. Impression by Dr. Gonzales shows dilated small bowel suggest mechanical mid small bowel obstruction. Transition point not seen. Dilation a slightly improved compared to old exam. There is clearing of the minimal fluid in the abdomen compared to old exam. Two-view x-ray of the chest is obtained. Report was reviewed in its entirety. Impression by Dr. Gonzales shows normal chest. No change. Disposition Clinical Impression: Bowel obstruction, Leukocytosis Disposition: ADMITTED IP TO THIS [facility] Condition: Serious Decision to Admit Reason: Admit from EC Decision Date: 10/14/20 Decision Time: 23:36
--- NOTE | 2020-10-14 21:57 | CT ---
EXAMINATION TYPE: CT abdomen pelvis wo con DATE OF EXAM: 10/14/2020 COMPARISON: 09/29/2020 HISTORY: pain CT DLP: 980.9 mGycm Automated exposure control for dose reduction was used. Lung bases are clear. There is no pleural effusion. Heart size is normal. There is no pericardial eff usion. Liver spleen stomach appear intact. There are clips from cholecystectomy. There is no pancreat ic mass. The bile ducts are not dilated. There is dilated proximal small bowel. There are fluid level s. Small bowel measures up to 4.5 cm. There is umbilical hernia measuring 2 cm containing fat. There is no adrenal mass. There are clips from left nephrectomy. The right kidney shows normal size a nd contour. There is no hydronephrosis. There is no retroperitoneal adenopathy. Bladder distends smoo thly. There is no inguinal hernia. There is no free fluid in the pelvis. Lumbar vertebra have normal alignment. Posterior elements are intact. Appendix appears normal. There is no mesenteric edema. There is no ascites or free air. Bony pelvis is intact. Hip joints are intact . IMPRESSION: Dilated small bowel suggestive of mechanical mid small bowel obstruction. Transition point not seen. Dilation is slightly improved compared to old exam. There is clearing of the minimal fluid in the abd omen compared to old exam.
[2020-10-14 22:01] LABS: Amorphous Sediment,Urine Rare /hpf; Appearance,Urine Cloudy (Clear); Bilirubin,Urine Negative (Negative); Blood,Urine Negative (Negative); Color,Urine Yellow; Glucose,Urine (UA) Negative (Negative); Hyaline Casts,Urine 11 /lpf (0-2); Ketones,Urine Negative (Negative); Leukocyte Esterase,Urine Negative (Negative); Mucus,Urine Many /hpf; Nitrite,Urine Negative (Negative); Protein,Urine 2+ (Negative); RBC,Urine 2 /hpf (0-5); Specific Gravity,Urine 1.012 (1.001-1.035); Squamous Epithelial Cell,Urine <1 /hpf (0-4); Urobilinogen,Urine <2.0 mg/dL (<2.0); WBC,Urine 3 /hpf (0-5)
[2020-10-14] MEDS ORDERED: NALOXONE 0.4 MG/ML 1 ML VIAL IV PRN (23:35)
[2020-10-15] MEDS: HYDROmorphone 1 MG/ML 1 ML SYRINGE IVP PRN ×7 (01:11→21:24)
[2020-10-15] MEDS ORDERED: PIPERACILLIN-TAZOBACTAM 3.375 GM in SODIUM CHLORIDE 0.9% 100 ML IVPB STA (01:19)
[2020-10-15] MEDS: SODIUM CHLORIDE 0.9% 1,000 ML IV SCH ×4 (01:22→21:26)
[2020-10-15] MEDS ORDERED: ALBUTEROL NEBULIZED 2.5 MG/3 ML INHALATION PRN (09:38)
[2020-10-15] MEDS ORDERED: DOCUSATE ORAL SOLN 100 MG/10 ML CUP PO PRN (09:38)
[2020-10-15] MEDS: PIPERACILLIN-TAZOBACTAM 3.375 GM in SODIUM CHLORIDE 0.9% 100 ML IVPB SCH ×2 (09:43→16:55)
--- NOTE | 2020-10-15 11:14 | P.GSHP ---
History of Present Illness H&P Date: 10/15/20 Chief Complaint: Abdominal pain Is a 49-year-old male lateral inmate prisoner. Patient underwent lysis of adhesions 2 weeks ago. Patient states he had some abdominal pain and nausea. The patient was seen Yosef. White count 16,000. His CAT scan shows improvement from his previous CAT scan. Patient underwent previous lysis of adhesions for partial small bowel structure. Patient states that he is currently having flatus. He does not look to be in any significant distress. Past Medical History Past Medical History: Atrial Fibrillation, Cancer, COPD, Diabetes Mellitus, GI Bleed, Hypertension Additional Past Medical History / Comment(s): RENAL CELL CA, DUODENAL ULCER, HIATAL HERNIA, BORDERLINE PERSONALITY DISORDER, PANIC EPISODES, ANXIETY, OCD, chronic back pain, chronic bronchitis History of Any Multi-Drug Resistant Organisms: None Reported Past Surgical History: Cholecystectomy, Hernia Repair Additional Past Surgical History / Comment(s): duodenal ulcer surgery, left kidney removal, BOWEL OBSTRUCTION SURGERY 10/08 Past Anesthesia/Blood Transfusion Reactions: No Reported Reaction Past Psychological History: Anxiety, Bipolar Additional Psychological History / Comment(s): OCD, borderline personality disorder Smoking Status: Former smoker Past Alcohol Use History: None Reported Additional Past Alcohol Use History / Comment(s): pt quit 08/2020. 2ppd previously Past Drug Use History: None Reported Additional Drug Use History / Comment(s): marijuana use had to stop because of panic attacks and heart fluttering - Past Family History Father Family Medical History: Cancer Additional Family Medical History / Comment(s): lung cancer mets to brain Medications and Allergies Home Medications Medication Instructions Recorded Confirmed Type hydroCHLOROthiazide [Hydrodiuril] 12.5 mg PO DAILY 11/27/16 10/14/20 History Fenofibrate 160 mg PO HS 09/18/17 10/14/20 History Pantoprazole Sodium [Protonix] 40 mg PO DAILY 10/12/19 10/14/20 History Albuterol Sulfate [Proair Hfa] 1 - 2 puff INHALATION RT-Q6H PRN 08/02/20 10/14/20 History metFORMIN HCL [Glucophage] 1,000 mg PO BID 08/02/20 10/14/20 History Magnesium Oxide [Mag-Ox] 400 mg PO DAILY 08/16/20 10/14/20 History Ciclesonide [Alvesco] 1 puff INHALATION RT-BID 09/12/20 10/14/20 History Metoprolol Tartrate [Lopressor] 100 mg PO BID 09/12/20 10/14/20 History glipiZIDE [Glucotrol] 10 mg PO DAILY 09/12/20 10/14/20 History lisinopriL [Zestril] 10 mg PO DAILY 09/28/20 10/14/20 History Acetaminophen Tab [Tylenol Tab] 650 mg PO Q4H PRN #30 tablet 10/13/20 10/14/20 Rx Docusate Oral Soln [Colace Oral 100 mg PO BID PRN ml 10/13/20 10/14/20 Rx Soln] Ibuprofen [Motrin] 600 mg PO Q8HR PRN #30 tab 10/13/20 10/14/20 Rx Mag Hydrox/Al Hydrox/Simeth 30 ml PO QID #1000 ml 10/13/20 10/14/20 Rx [Maalox] Allergies Allergy/AdvReac Type Severity Reaction Status Date / Time Iodinated Contrast Media AdvReac KIDNEY Verified 10/14/20 22:43 [Iodinated Contrast- Oral and IV Dye] Surgical - Exam Vital Signs Pulse Resp BP Pulse Ox 90 18 146/96 99 10/14/20 19:44 10/14/20 19:44 10/14/20 19:44 10/14/20 19:44 - General well developed, well nourished, no distress - Eyes PERRL - ENT normal pinna - Neck no masses - Respiratory normal expansion - Cardiovascular Rhythm: regular - Abdomen Abdomen: soft, non tender - Genitourinary Incision is clean dry intact Results - Labs 10/14/20 21:20 10/14/20 21:20 Abnormal Lab Results - Last 24 Hours (Table) 10/14/20 10/14/20 10/14/20 Range/Units 21:20 21:20 21:34 WBC 16.4 H (3.8-10.6) k/uL Plt Count 546 H (150-450) k/uL Neutrophils # 12.9 H (1.3-7.7) k/uL Sodium 134 L (137-145) mmol/L Urine Protein 2+ H (Negative) Amorphous Sediment Rare H (None) /hpf Hyaline Casts 11 H (0-2) /lpf Urine Mucus Many H (None) /hpf Diabetes panel 10/14/20 Range/Units 21:20 Sodium 134 L (137-145) mmol/L Potassium 4.8 (3.5-5.1) mmol/L Chloride 100 (98-107) mmol/L Carbon Dioxide 23 (22-30) mmol/L BUN 16 (9-20) mg/dL Creatinine 1.22 (0.66-1.25) mg/dL Glucose 96 (74-99) mg/dL Calcium 10.2 (8.4-10.2) mg/dL AST 27 (17-59) U/L ALT 22 (4-49) U/L Alkaline Phosphatase 89 (38-126) U/L Total Protein 6.7 (6.3-8.2) g/dL Albumin 4.0 (3.5-5.0) g/dL Calcium panel 10/14/20 Range/Units 21:20 Calcium 10.2 (8.4-10.2) mg/dL Albumin 4.0 (3.5-5.0) g/dL Pituitary panel 10/14/20 Range/Units 21:20 Sodium 134 L (137-145) mmol/L Potassium 4.8 (3.5-5.1) mmol/L Chloride 100 (98-107) mmol/L Carbon Dioxide 23 (22-30) mmol/L BUN 16 (9-20) mg/dL Creatinine 1.22 (0.66-1.25) mg/dL Glucose 96 (74-99) mg/dL Calcium 10.2 (8.4-10.2) mg/dL Adrenal panel 10/14/20 Range/Units 21:20 Sodium 134 L (137-145) mmol/L Potassium 4.8 (3.5-5.1) mmol/L Chloride 100 (98-107) mmol/L Carbon Dioxide 23 (22-30) mmol/L BUN 16 (9-20) mg/dL Creatinine 1.22 (0.66-1.25) mg/dL Glucose 96 (74-99) mg/dL Calcium 10.2 (8.4-10.2) mg/dL Total Bilirubin 0.3 (0.2-1.3) mg/dL AST 27 (17-59) U/L ALT 22 (4-49) U/L Alkaline Phosphatase 89 (38-126) U/L Total Protein 6.7 (6.3-8.2) g/dL Albumin 4.0 (3.5-5.0) g/dL Assessment and Plan Plan: This is a ptosis. Unsure origin. Patient's treated with IV a box. Patient's had flatus. He'll start on clear liquids.
--- NOTE | 2020-10-15 11:26 | P.HPIM ---
History of Present Illness H&P Date: 10/15/20 HISTORY OF PRESENT ILLNESS This is a 49-year-old male patient of [facility], patient follows with Rosalia Gallagher CUSTODIAL SERVICES MANAGER, with past medical history of hypertension, hyperlipidemia, diabetes mellitus type 2, gastroesophageal reflux disease, chronic back pain, SVT, renal cell cancer, peptic ulcer disease, generalized anxiety disorder. Patient is currently residing in [facility]. Patient was admitted to the hospital from September 12 through September 27 which time he was treated for partial small bowel obstruction s/p partial omentectomy, lysis of adhesions and repair of incisional hernia 09/21 Dr. Fernandez. Patient was discharged back to the intermediate on October 13 2020. Patient was brought into [facility] emergency center for evaluation. He apparently developed increased right sided abdominal pain along with chest pain yesterday. He did have some loose stools yesterday denies any blood, fever or chills, has been nauseated with difficulty trouble tolerating his clear liquid diet. EKG showed normal sinus rhythm with no evidence of ST elevation or depression and troponins were negative. Labs revealed elevated white blood cell count 16.4, lactic was negative, CT of the abdomen and pelvis showed small bowel obstruction. Chest x-ray was negative. He did have an elevated temp of 100.0 while in the emergency room and was admitted on IV antibiotics with consult for dressing in place. He remains afebrile now, pulse 104, blood pressure 115/81, pulse ox 98% on room air. REVIEW OF SYSTEMS Constitutional: No fever, no chills, no night sweats. No weight change. No weakness, fatigue or lethargy. No daytime sleepiness. EENT: No headache. No blurred vision or double vision, no loss of vision. No loss of Hearing, no ringing in the ears, no dizziness. No nasal drainage or congestion. No epistaxis. No sore throat. Lungs: No shortness of breath, cough, no sputum production. No wheezing. Cardiovascular: No chest pain, no lower extremity edema. No palpitations. No paroxysmal nocturnal dyspnea. No orthopnea. No lightheadedness or dizziness. No syncopal episodes. Abdominal: Reports abdominal pain. Reports nausea, no vomiting. Positive for loose stools. No bloody or tarry stools. Reports loss of appetite. Genitourinary: No dysuria, increased frequency, urgency. No urinary retention. Musculoskeletal: No myalgias. No muscle weakness, no gait dysfunction, no frequent falls. No back pain. No neck pain. Integumentary: No wounds, no lesions. No rash or pruritus. No unusual bruising. No change in hair or nails. Neurologic: No aphasia. No facial droop. No change in mentation. No head injury. No headache. No paralysis. No paresthesia. Psychiatric: No depression. No anxiety. No mood swings. Endocrine: No abnormal blood sugars. No weight change. MEDICAL HISTORY Renal cell cancer Duodenal ulcer Hiatal hernia Hypertension Hyperlipidemia Diabetes mellitus type 2 Gastroesophageal reflux disease Chronic back pain SVT Borderline personality Generalized anxiety disorder SURGICAL HISTORY Hiatal hernia repair in 2001 Peptic ulcer repair in 2003 Left kidney resection in 2003 Cholecystectomy 2017 SOCIAL HISTORY Patient has been a smoker of 2 packs per day since he was 14 years of age. He denies any marijuana use for greater than 1 year. No illicit drug use. He denies any alcohol use. Patient does have a nebulizer. FAMILY HISTORY Father at age 50 from lung cancer. Mother is alive with no major medical problems. Patient states that all his siblings have anxiety and panic issues. He has 1 sister with no major medical problems. Patient has 1 brother that has adrenal gland problem. Patient is one daughter with autism. PHYSICAL EXAMINATION Gen: This is an obese 49-year-old male. Patient is resting, appears to be in no acute distress. HEENT: Head is atraumatic, normocephalic. Pupils equal, round. Sclerae is anicteric. NECK: Supple. No JVD. No lymphadenopathy. No thyromegaly. LUNGS: Clear to auscultation. No wheezes or rhonchi. No intercostal retractions. HEART: Regular rate and rhythm. No murmur. ABDOMEN: Soft. Bowel sounds are present. No masses. Epigastric and generalized abdominal tenderness. EXTREMITIES: No pedal edema. No calf tenderness. NEUROLOGICAL: Patient is awake, alert and oriented x3. Cranial nerves 2 through 12 are grossly intact. ASSESSMENT AND PLAN 1. Recurrent Small bowel obstruction or ileus. Admitted with Dr. Fernandez. Patient is nothing by mouth. On IV Zosyn and Protonix. Normal saline infusing at 130 ML's per hour. On Dilaudid for pain control. 2. Recent hospitalization for Partial small bowel obstruction s/p partial omentectomy, lysis of adhesions and repair of incisional hernia 09/21. 3. History of renal cell cancer, stable. 4. Hypertension. Continue hydrochlorothiazide 12.5 mg daily, lisinopril 10 mg at bedtime, Lopressor 100 mg twice daily, 5. Hyperlipidemia. fenofibrate 160 mg at bedtime. 6. Diabetes mellitus type 2. Hold glipizide 10 mg daily, metformin 1000 mg twice daily, start NovoLog scale will be added every 6 hours while nothing by mouth. 7. Gastroesophageal reflux disease. Continue Protonix 40 mg daily IV. 8. Chronic back pain. Dilaudid every 3 hours when necessary 9. History of SVT. Continue Lopressor. 10. DVT prophylaxis. Lovenox subcu 11. GI prophylaxis on Protonix IV Patient will be admitted to the hospital for a minimum of 2 night stay. DISCHARGE PLAN Return To Correction Impression and plan of care have been directed as dictated by the signing physician. Jessica Negrete nurse practitioner acting as scribe for signing physician. Past Medical History Past Medical History: Atrial Fibrillation, Cancer, COPD, Diabetes Mellitus, GI Bleed, Hypertension Additional Past Medical History / Comment(s): RENAL CELL CA, DUODENAL ULCER, HIATAL HERNIA, BORDERLINE PERSONALITY DISORDER, PANIC EPISODES, ANXIETY, OCD, chronic back pain, chronic bronchitis History of Any Multi-Drug Resistant Organisms: None Reported Past Surgical History: Cholecystectomy, Hernia Repair Additional Past Surgical History / Comment(s): duodenal ulcer surgery, left kidney removal, BOWEL OBSTRUCTION SURGERY 10/08 Past Anesthesia/Blood Transfusion Reactions: No Reported Reaction Past Psychological History: Anxiety, Bipolar Additional Psychological History / Comment(s): OCD, borderline personality disorder Smoking Status: Former smoker Past Alcohol Use History: None Reported Additional Past Alcohol Use History / Comment(s): pt quit 08/2020. 2ppd previously Past Drug Use History: None Reported Additional Drug Use History / Comment(s): marijuana use had to stop because of panic attacks and heart fluttering - Past Family History Father Family Medical History: Cancer Additional Family Medical History / Comment(s): lung cancer mets to brain Medications and Allergies Home Medications Medication Instructions Recorded Confirmed Type hydroCHLOROthiazide [Hydrodiuril] 12.5 mg PO DAILY 11/27/16 10/14/20 History Fenofibrate 160 mg PO HS 09/18/17 10/14/20 History Pantoprazole Sodium [Protonix] 40 mg PO DAILY 10/12/19 10/14/20 History Albuterol Sulfate [Proair Hfa] 1 - 2 puff INHALATION RT-Q6H PRN 08/02/20 0 10/14/20 History metFORMIN HCL [Glucophage] 1,000 mg PO BID 08/02/20 10/14/20 History Magnesium Oxide [Mag-Ox] 400 mg PO DAILY 08/16/20 10/14/20 History Ciclesonide [Alvesco] 1 puff INHALATION RT-BID 09/12/20 10/14/20 History Metoprolol Tartrate [Lopressor] 100 mg PO BID 09/12/20 10/14/20 History glipiZIDE [Glucotrol] 10 mg PO DAILY 09/12/20 10/14/20 History lisinopriL [Zestril] 10 mg PO DAILY 09/28/20 10/14/20 History Acetaminophen Tab [Tylenol Tab] 650 mg PO Q4H PRN #30 tablet 10/13/20 10/14/20 Rx Docusate Oral Soln [Colace Oral 100 mg PO BID PRN ml 10/13/20 10/14/20 Rx Soln] Ibuprofen [Motrin] 600 mg PO Q8HR PRN #30 tab 10/13/20 10/14/20 Rx Mag Hydrox/Al Hydrox/Simeth 30 ml PO QID #1000 ml 10/13/20 10/14/20 Rx [Maalox] Allergies Allergy/AdvReac Type Severity Reaction Status Date / Time Iodinated Contrast Media AdvReac KIDNEY Verified 10/14/20 22:43 [Iodinated Contrast- Oral and IV Dye] Physical Exam Vitals: Vital Signs Temp Pulse Pulse Resp BP BP Pulse Ox 10/15/20 02:00 98.5 F 104 H 18 115/81 98 10/15/20 01:03 98.5 F 104 H 18 115/81 98 10/14/20 23:25 98.0 F 101 H 16 138/98 99 10/14/20 22:10 100.0 F H 10/14/20 19:44 90 18 146/96 99 Intake and Output 10/14/20 10/15/20 10/15/20 22:59 06:59 14:59 Other: Voiding Method Toilet Weight 110.223 kg 110.223 kg Results CBC & Chem 7: 10/14/20 21:20 10/14/20 21:20 Labs: Abnormal Lab Results - Last 24 Hours (Table) 10/14/20 10/14/20 10/14/20 Range/Units 21:20 21:20 21:34 WBC 16.4 H (3.8-10.6) k/uL Plt Count 546 H (150-450) k/uL Neutrophils # 12.9 H (1.3-7.7) k/uL Sodium 134 L (137-145) mmol/L Urine Protein 2+ H (Negative) Amorphous Sediment Rare H (None) /hpf Hyaline Casts 11 H (0-2) /lpf Urine Mucus Many H (None) /hpf Thrombosis Risk Factor Assmnt - Choose All That Apply Any of the Below Risk Factors Present?: Yes Each Factor Represents 1 point: Age 41-60 years, History of prior major surgery (<1month) Other Risk Factors: No Other congenital or acquired thrombophilia - If yes, enter type in comment: No Thrombosis Risk Factor Assessment Total Risk Factor Score: 2 Thrombosis Risk Factor Assessment Level: Low Risk
[2020-10-15 12:22] LABS: Glucose,Whole Blood 97 mg/dL (75-99)
[2020-10-15 13:07] VITALS: BMI 34.0
[2020-10-15] MEDS: INSULIN ASPART (NovoLOG) 100 UNIT/ML VIAL SQ SCH ×3 (13:19→21:41)
[2020-10-15] MEDS: MAG HYDROX/AL HYDROX/SIMETH 30 ML CUP PO SCH ×3 (13:44→21:24)
[2020-10-15] MEDS: PANTOPRAZOLE 40 MG/10 ML VIAL IVP SCH (13:44)
[2020-10-15 16:34] LABS: Glucose,Whole Blood 100 mg/dL (75-99)
[2020-10-15] MEDS: FENOFIBRATE 160 MG TAB PO SCH (21:24)
[2020-10-15] MEDS: NON FORMULARY DRUG (Ciclesonide [Alvesco] 6.1 GM Hfa.Aer.Ad) INHALATION SCH (21:26)
[2020-10-15 21:35] LABS: Glucose,Whole Blood 111 mg/dL (75-99)
[2020-10-15] MEDS: METOPROLOL TARTRATE 50 MG TAB PO SCH (21:41)
[2020-10-16] MEDS: HYDROmorphone 1 MG/ML 1 ML SYRINGE IVP PRN ×6 (01:00→22:32)
[2020-10-16] MEDS: PIPERACILLIN-TAZOBACTAM 3.375 GM in SODIUM CHLORIDE 0.9% 100 ML IVPB SCH ×3 (01:01→18:35)
[2020-10-16] MEDS: SODIUM CHLORIDE 0.9% 1,000 ML IV SCH ×2 (05:51→17:09)
[2020-10-16 07:00] LABS: Glucose,Whole Blood 88 mg/dL (75-99)
[2020-10-16] MEDS: PANTOPRAZOLE 40 MG/10 ML VIAL IVP SCH (08:40)
[2020-10-16] MEDS: MAGNESIUM OXIDE 400 MG TAB PO SCH (08:41)
[2020-10-16] MEDS: INSULIN ASPART (NovoLOG) 100 UNIT/ML VIAL SQ SCH ×4 (08:41→20:37)
[2020-10-16] MEDS: METOPROLOL TARTRATE 50 MG TAB PO SCH ×2 (08:41→22:31)
[2020-10-16] MEDS: lisinopriL 10 MG TAB PO SCH (08:41)
[2020-10-16] MEDS: ENOXAPARIN 40 MG/0.4 ML SYRINGE SQ SCH (08:41)
[2020-10-16] MEDS: MAG HYDROX/AL HYDROX/SIMETH 30 ML CUP PO SCH ×4 (08:42→22:31)
[2020-10-16] MEDS: ONDANSETRON 4 MG/2 ML VIAL IVP PRN ×2 (08:55→17:08)
[2020-10-16] MEDS ORDERED: glipiZIDE 10 MG TAB PO SCH (09:00)
--- NOTE | 2020-10-16 10:40 | P.PN ---
Subjective Progress Note Date: 10/16/20 HISTORY OF PRESENT ILLNESS This is a 49-year-old male patient of [facility], patient follows with Rosalia Gallagher REVIEW SCHEDULING COORDINATOR, with past medical history of hypertension, hyperlipidemia, diabetes mellitus type 2, gastroesophageal reflux disease, chronic back pain, SVT, renal cell cancer, peptic ulcer disease, generalized anxiety disorder. Patient is currently residing in [facility]. Patient was admitted to the hospital from September 12 through September 27 which time he was treated for partial small bowel obstruction s/p partial omentectomy, lysis of adhesions and repair of incisional hernia 09/21 Dr. Fernandez. [facility] Patient was brought into [facility] emergency center for evaluation. He apparently developed increased right sided abdominal pain along with chest pain yesterday. He did have some loose stools yesterday denies any blood, fever or chills, has been nauseated with difficulty trouble tolerating his clear liquid diet. EKG showed normal sinus rhythm with no evidence of ST elevation or depression and troponins were negative. Labs revealed elevated white blood cell count 16.4, lactic was negative, CT of the abdomen and pelvis showed small bowel obstruction. Chest x-ray was negative. He did have an elevated temp of 100.0 while in the emergency room and was admitted on IV antibi otics with consult for dressing in place. He remains afebrile now, pulse 104, blood pressure 115/81, pulse ox 98% on room air. 10/16 patient evaluated at bedside, reports he still having some nausea and right lower quadrant pain. On clear liquid diet at this time requesting to advance if okay with Dr. Fernandez. Vital signs are stable, patient remains afebrile, pulse 84, blood pressure 109/77, pulse ox 96% on room air. Discussed with patient decreasing Dilaudid use to help decrease nausea and increase peristalsis movements. Patient remains on IV Zosyn. Will advance diet per surgery's oswald mmendations and monitor patient. REVIEW OF SYSTEMS Constitutional: No fever, no chills, no night sweats. No weight change. No weakness, fatigue or lethargy. No daytime sleepiness. EENT: No headache. No blurred vision or double vision, no loss of vision. No loss of Hearing, no ringing in the ears, no dizziness. No nasal drainage or congestion. No epistaxis. No sore throat. Lungs: No shortness of breath, cough, no sputum production. No wheezing. Cardiovascular: No chest pain, no lower extremity edema. No palpitations. No paroxysmal nocturnal dyspnea. No orthopnea. No lightheadedness or dizziness. No syncopal episodes. Abdominal: Reports right lower quadrant abdominal pain. Reports nausea, no vomiting. Positive for loose stools. No bloody or tarry stools. Reports loss of appetite. Genitourinary: No dysuria, increased frequency, urgency. No urinary retention. Musculoskeletal: No myalgias. No muscle weakness, no gait dysfunction, no frequent falls. No back pain. No neck pain. Integumentary: No wounds, no lesions. No rash or pruritus. No unusual bruising. No change in hair or nails. Neurologic: No aphasia. No facial droop. No change in mentation. No head injury. No headache. No paralysis. No paresthesia. Psychiatric: No depression. No anxiety. No mood swings. Endocrine: No abnormal blood sugars. No weight change. PHYSICAL EXAMINATION Gen: This is an obese 49-year-old male. Patient is resting, appears to be in no acute distress. HEENT: Head is atraumatic, normocephalic. Pupils equal, round. Sclerae is anicteric. NECK: Supple. No JVD. No lymphadenopathy. No thyromegaly. LUNGS: Clear to auscultation. No wheezes or rhonchi. No intercostal retractions. HEART: Regular rate and rhythm. No murmur. ABDOMEN: Soft. Bowel sounds are present. No masses. Mild right lower quadrant tenderness. EXTREMITIES: No pedal edema. No calf tenderness. NEUROLOGICAL: Patient is awake, alert and oriented x3. Cranial nerves 2 through 12 are grossly intact. ASSESSMENT AND PLAN 1. Recurrent Small bowel obstruction or ileus. Admitted with Dr. Fernandez. Patient is on clear liquids. On IV Zosyn and Protonix. Normal saline infusing at 130 ML's per hour. On Dilaudid for pain control. 2. Recent hospitalization for Partial small bowel obstruction s/p partial omentectomy, lysis of adhesions and repair of incisional hernia 09/21. 3. History of renal cell cancer, stable. 4. Hypertension. Continue hydrochlorothiazide 12.5 mg daily, lisinopril 10 mg at bedtime, Lopressor 100 mg twice daily, 5. Hyperlipidemia. fenofibrate 160 mg at bedtime. 6. Diabetes mellitus type 2. Hold glipizide 10 mg daily, metformin 1000 mg twice daily, start NovoLog scale will be added before meals and at bedtime 7. Gastroesophageal reflux disease. Continue Protonix 40 mg daily IV. 8. Chronic back pain. Dilaudid every 3 hours when necessary 9. History of SVT. Continue Lopressor. 10. DVT prophylaxis. Lovenox subcu 11. GI prophylaxis on Protonix IV Patient will be admitted to the hospital for a minimum of 2 night stay. DISCHARGE PLAN Return To Long Term Impression and plan of care have been directed as dictated by the signing physician. Jessica Ngerete nurse practitioner acting as scribe for signing physician. Objective - Vital Signs Vital signs: Vital Signs Temp 98.3 F 10/16/20 01:53 Pulse 83 10/16/20 01:53 Resp 17 10/16/20 01:53 BP 116/74 10/16/20 01:53 Pulse Ox 97 10/16/20 01:53 Intake & Output 10/15/20 10/16/20 10/16/20 18:59 06:59 18:59 Weight 107.547 kg Other: Voiding Method Toilet Toilet # Voids 0 # Bowel Movements 0 - Labs CBC & Chem 7: 10/14/20 21:20 10/14/20 21:20 Labs: Abnormal Lab Results - Last 24 Hours (Table) 10/15/20 10/15/20 Range/Units 16:32 21:34 POC Glucose (mg/dL) 100 H 111 H (75-99) mg/dL
[2020-10-16] MEDS: NON FORMULARY DRUG (Ciclesonide [Alvesco] 6.1 GM Hfa.Aer.Ad) INHALATION SCH ×2 (11:20→22:32)
[2020-10-16 11:32] LABS: Glucose,Whole Blood 95 mg/dL (75-99)
[2020-10-16 12:18] LABS: Basophils # (A) 0.1 k/uL (0-0.2); Basophils % (A) 1 %; Eosinophils # (A) 0.1 k/uL (0-0.7); Eosinophils % (A) 1 %; HCT 35.3 % (39.0-53.0); HGB 11.3 gm/dL (13.0-17.5); Hypochromasia Slight; Lymphocytes # (A) 2.4 k/uL (1.0-4.8); Lymphocytes % (A) 26 %; MCV 90.6 fL (80.0-100.0); Mean Platelet Volume 8.1; Monocytes # (A) 0.5 k/uL (0-1.0); Monocytes % (A) 6 %; Neutrophils # (A) 5.7 k/uL (1.3-7.7); Neutrophils % (A) 64 %; Platelet Count 396 k/uL (150-450); RDW 14.4 % (11.5-15.5)
--- NOTE | 2020-10-16 12:20 | P.PN ---
Progress Note - Text Progress Note Date: 10/16/20 Patient is actually having bowel movements today. On exam vessels are stable. Abdomen soft. Resolving ileus. Patient will have his diet advanced.
[2020-10-16 12:45] LABS: ALT 20 U/L (4-49); AST 37 U/L (17-59); African American GFR (CKD) 76 (>60 ml/min/1.73 sqM); Albumin 3.4 g/dL (3.5-5.0); Albumin/Globulin Ratio 1.4; Alkaline Phosphatase 53 U/L (38-126); Anion Gap 9 mmol/L; Blood Urea Nitrogen 17 mg/dL (9-20); Calcium 9.2 mg/dL (8.4-10.2); Carbon Dioxide 23 mmol/L (22-30); Chloride 103 mmol/L (98-107); Globulin 2.5 g/dL; Glucose 105 mg/dL (74-99); Non-African American GFR(CKD) 66 (>60 ml/min/1.73 sqM); Sodium 135 mmol/L (137-145); Total Bilirubin 0.5 mg/dL (0.2-1.3); Total Protein 5.9 g/dL (6.3-8.2)
[2020-10-16 12:51] LABS: Potassium 4.7 mmol/L (3.5-5.1)
[2020-10-16 16:33] LABS: Glucose,Whole Blood 77 mg/dL (75-99)
[2020-10-16 20:01] LABS: Glucose,Whole Blood 98 mg/dL (75-99)
[2020-10-16] MEDS: FENOFIBRATE 160 MG TAB PO SCH (22:31)
[2020-10-17] MEDS: SODIUM CHLORIDE 0.9% 1,000 ML IV SCH ×4 (01:33→21:59)
[2020-10-17] MEDS: PIPERACILLIN-TAZOBACTAM 3.375 GM in SODIUM CHLORIDE 0.9% 100 ML IVPB SCH ×3 (01:33→15:56)
[2020-10-17 06:48] LABS: Glucose,Whole Blood 97 mg/dL (75-99)
[2020-10-17] MEDS: INSULIN ASPART (NovoLOG) 100 UNIT/ML VIAL SQ SCH ×4 (08:49→20:45)
[2020-10-17] MEDS: lisinopriL 10 MG TAB PO SCH (09:15)
[2020-10-17] MEDS: MAG HYDROX/AL HYDROX/SIMETH 30 ML CUP PO SCH ×4 (09:15→20:44)
[2020-10-17] MEDS: METOPROLOL TARTRATE 50 MG TAB PO SCH ×2 (09:16→20:43)
[2020-10-17] MEDS: ENOXAPARIN 40 MG/0.4 ML SYRINGE SQ SCH (09:16)
[2020-10-17] MEDS: NON FORMULARY DRUG (Ciclesonide [Alvesco] 6.1 GM Hfa.Aer.Ad) INHALATION SCH (09:16)
[2020-10-17] MEDS: MAGNESIUM OXIDE 400 MG TAB PO SCH (09:16)
[2020-10-17 11:21] LABS: Glucose,Whole Blood 105 mg/dL (75-99)
[2020-10-17] MEDS: HYDROmorphone 1 MG/ML 1 ML SYRINGE IVP PRN ×2 (11:42→15:56)
[2020-10-17] MEDS: PANTOPRAZOLE 40 MG/10 ML VIAL IVP SCH (11:42)
[2020-10-17 14:33] LABS: HCT 33.4 % (39.6-50.0); HGB 10.4 g/dL (13.0-17.0); MCH 28.3 pg (27.0-32.0); MCHC 31.1 g/dL (32.0-37.0); Mean Platelet Volume 10.2 fL (9.5-12.2); Platelet Count 462 X 10*3/uL (140-440); RBC 3.67 X 10*6/uL (4.40-5.60); RDW 14.2 % (11.5-14.5); WBC 8.03 X 10*3/uL (4.50-10.00)
--- NOTE | 2020-10-17 14:38 | P.PN ---
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 Patient is currently residing in [facility]. Patient was admitted to the hospital from September 12 through September 27 which time he was treated for partial small bowel obstruction s/p partial omentectomy, lysis of adhesions and repair of incisional hernia 09/21 Dr. Fernandez. Patient was discharged back to the [facility] on October 13 2020. Patient was brought into [facility] emergency center for evaluation. He apparently developed increased right sided abdominal pain along with chest pain yesterday. He did have some loose stools yesterday denies any blood, fever or chills, has been nauseated with difficulty trouble tolerating his clear liquid diet. EKG showed normal sinus rhythm with no evidence of ST elevation or depression and troponins were negative. Labs revealed elevated white blood cell count 16.4, lactic was negative, CT of the abdomen and pelvis showed small bowel obstruction. Chest x-ray was negative. He did have an elevated temp of 100.0 while in the emergency room and was admitted on IV antibi otics with consult for dressing in place. He remains afebrile now, pulse 104, blood pressure 115/81, pulse ox 98% on room air. 10/16 patient evaluated at bedside, reports he still having some nausea and right lower quadrant pain. On clear liquid diet at this time requesting to advance if okay with Dr. Fernandez. Vital signs are stable, patient remains afebrile, pulse 84, blood pressure 109/77, pulse ox 96% on room air. Discussed with patient decreasing Dilaudid use to help decrease nausea and increase peristalsis movements. Patient remains on IV Zosyn. Will advance diet per surgery's oswald mmendations and monitor patient. 10/17: Patient states that he is feeling tired. He has bowel movements. He is on a full liquid diet. He is followed closely by general surgery. He has been afebrile, heart rate 81, blood pressure 120/77, pulse ox 99% on room air. Repeat blood work reveals WBC 8, hemoglobin 10.4, platelet count 462. Capillary blood glucose running between 77 and 105. Midline was placed today as patient had no IV access. REVIEW OF SYSTEMS Constitutional: No fever, no chills, no night sweats. No weight change. No weakness, fatigue or lethargy. No daytime sleepiness. EENT: No headache. No blurred vision or double vision, no loss of vision. No loss of Hearing, no ringing in the ears, no dizziness. No nasal drainage or congestion. No epistaxis. No sore throat. Lungs: No shortness of breath, cough, no sputum production. No wheezing. Cardiovascular: No chest pain, no lower extremity edema. No palpitations. No paroxysmal nocturnal dyspnea. No orthopnea. No lightheadedness or dizziness. No syncopal episodes. Abdominal: Reports right lower quadrant abdominal pain. Reports nausea, no vomiting. Positive for loose stools. No bloody or tarry stools. Reports loss of appetite. Genitourinary: No dysuria, increased frequency, urgency. No urinary retention. Musculoskeletal: No myalgias. No muscle weakness, no gait dysfunction, no frequent falls. No back pain. No neck pain. Integumentary: No wounds, no lesions. No rash or pruritus. No unusual bruising. No change in hair or nails. Neurologic: No aphasia. No facial droop. No change in mentation. No head injury. No headache. No paralysis. No paresthesia. Psychiatric: No depression. No anxiety. No mood swings. Endocrine: No abnormal blood sugars. No weight change. PHYSICAL EXAMINATION Gen: This is an obese 49-year-old male. Patient is resting, appears to be in no acute distress. HEENT: Head is atraumatic, normocephalic. Pupils equal, round. Sclerae is anicteric. NECK: Supple. No JVD. No lymphadenopathy. No thyromegaly. LUNGS: Clear to auscultation. No wheezes or rhonchi. No intercostal retractions. HEART: Regular rate and rhythm. No murmur. ABDOMEN: Soft. Bowel sounds are present. No masses. Mild right lower quadrant tenderness. EXTREMITIES: No pedal edema. No calf tenderness. NEUROLOGICAL: Patient is awake, alert and oriented x3. Cranial nerves 2 through 12 are grossly intact. ASSESSMENT AND PLAN 1. Recurrent Small bowel obstruction or ileus. Admitted with Dr. Fernandez. Patient is on full liquids. On IV Zosyn and Protonix. Normal saline infusing at 130 ML's per hour. On Dilaudid for pain control. 2. Recent hospitalization for Partial small bowel obstruction s/p partial omentectomy, lysis of adhesions and repair of incisional hernia 09/21. 3. History of renal cell cancer, stable. 4. Hypertension. Continue hydrochlorothiazide 12.5 mg daily, lisinopril 10 mg at bedtime, Lopressor 100 mg twice daily, 5. Hyperlipidemia. fenofibrate 160 mg at bedtime. 6. Diabetes mellitus type 2. Hold glipizide 10 mg daily, metformin 1000 mg twice daily, start NovoLog scale will be added before meals and at bedtime 7. Gastroesophageal reflux disease. Continue Protonix 40 mg daily IV. 8. Chronic back pain. Dilaudid every 3 hours when necessary 9. History of SVT. Continue Lopressor. 10. DVT prophylaxis. Lovenox subcu 11. GI prophylaxis on Protonix IV DISCHARGE PLAN Return To Long-Term Impression and plan of care have been directed as dictated by the signing physician. Jessica Negrete nurse practitioner acting as scribe for signing physician. Objective - Vital Signs Vital signs: Vital Signs Temp 98.6 F 10/17/20 07:23 Pulse 81 10/17/20 07:23 Resp 16 10/17/20 07:23 BP 120/77 10/17/20 07:23 Pulse Ox 99 10/17/20 07:23 Intake & Output 10/16/20 10/17/20 10/17/20 18:59 06:59 18:59 Other: Voiding Method Toilet # Voids 3 2 - Labs CBC & Chem 7: 10/17/20 06:17 10/16/20 11:24 Labs: Abnormal Lab Results - Last 24 Hours (Table) 10/16/20 10/16/20 Range/Units 11:24 11:24 RBC 3.90 L (4.30-5.90) m/uL Hgb 11.3 L (13.0-17.5) gm/dL Hct 35.3 L (39.0-53.0) % Sodium 135 L (137-145) mmol/L Creatinine 1.27 H (0.66-1.25) mg/dL Glucose 105 H (74-99) mg/dL Total Protein 5.9 L (6.3-8.2) g/dL Albumin 3.4 L (3.5-5.0) g/dL
[2020-10-17 16:45] LABS: Glucose,Whole Blood 94 mg/dL (75-99)
--- NOTE | 2020-10-17 17:20 | P.PN ---
Progress Note - Text Progress Note Date: 10/17/20 Patient has some mild complaints of crampy abdominal pain. On exam her vital signs are stable. Abdomen soft. It. Patient is having bowel movements and flatus. We anticipate discharge home tomorrow on full liquid diet.
[2020-10-17 20:40] LABS: Glucose,Whole Blood 98 mg/dL (75-99)
[2020-10-17] MEDS: ACETAMINOPHEN TAB 325 MG TAB PO PRN (20:43)
[2020-10-17] MEDS: FENOFIBRATE 160 MG TAB PO SCH (20:43)
[2020-10-18] MEDS: NON FORMULARY DRUG (Ciclesonide [Alvesco] 6.1 GM Hfa.Aer.Ad) INHALATION SCH ×2 (00:15→13:15)
[2020-10-18] MEDS: ACETAMINOPHEN TAB 325 MG TAB PO PRN ×2 (01:39→07:50)
[2020-10-18] MEDS: PIPERACILLIN-TAZOBACTAM 3.375 GM in SODIUM CHLORIDE 0.9% 100 ML IVPB SCH ×2 (01:40→10:53)
[2020-10-18] MEDS ORDERED: MELATONIN 3 MG TABLET PO PRN (03:36)
[2020-10-18] MEDS: SODIUM CHLORIDE 0.9% 1,000 ML IV SCH (06:13)
[2020-10-18 07:00] LABS: Glucose,Whole Blood 92 mg/dL (75-99)
[2020-10-18 07:26] VITALS: BP 140/82; PULSE 79; RESP 18; TEMP 97.8
[2020-10-18] MEDS: INSULIN ASPART (NovoLOG) 100 UNIT/ML VIAL SQ SCH (07:45)
--- NOTE | 2020-10-18 10:11 | P.PN ---
Progress Note - Text Progress Note Date: 10/18/20 The patient's resting comfortably in his bed. He states he has some anxiety about being discharged today. He has been without narcotic medication for 24 hours. On exam vital signs are stable. Abdomen soft. The patient seems to be reluctant to be discharged to [facility]. I explained to him that he will be on full liquid diet. No surgical intervention is planned. He'll follow-up as outpatient next week.
--- NOTE | 2020-10-18 10:14 | P.DS ---
Providers Date of admission: 10/14/20 23:42 Expected date of discharge: 10/18/20 Attending physician: Justin Fernadnez Primary care physician: [facility] Course: This is a 49-year-old male who was readmitted to the hospital with ileus. The patient was treated conservatively. Please see hospital chart for details. He was discharged back to assisted on 831 Patient Condition at Discharge: Serious Plan - Discharge Summary New Discharge Prescriptions: New Levofloxacin [Levaquin] 500 mg PO DAILY 1 Days #7 tab No Action hydroCHLOROthiazide [Hydrodiuril] 12.5 mg PO DAILY Fenofibrate 160 mg PO HS Pantoprazole Sodium [Protonix] 40 mg PO DAILY Albuterol Sulfate [Proair Hfa] 1 - 2 puff INHALATION RT-Q6H PRN PRN Reason: Shortness Of Breath Magnesium Oxide [Mag-Ox] 400 mg PO DAILY glipiZIDE [Glucotrol] 10 mg PO DAILY metFORMIN HCL [Glucophage] 1,000 mg PO BID Ciclesonide [Alvesco] 1 puff INHALATION RT-BID Metoprolol Tartrate [Lopressor] 100 mg PO BID lisinopriL [Zestril] 10 mg PO DAILY Docusate Oral Soln [Colace Oral Soln] 100 mg PO BID PRN ml PRN Reason: Constipation Mag Hydrox/Al Hydrox/Simeth [Maalox] 30 ml PO QID #1000 ml Ibuprofen [Motrin] 600 mg PO Q8HR PRN #30 tab PRN Reason: Pain Acetaminophen Tab [Tylenol Tab] 650 mg PO Q4H PRN #30 tablet PRN Reason: Pain Discharge Medication List hydroCHLOROthiazide [Hydrodiuril] 12.5 mg PO DAILY 11/27/16 [History] Fenofibrate 160 mg PO HS 09/18/17 [History] Pantoprazole Sodium [Protonix] 40 mg PO DAILY 10/12/19 [History] Albuterol Sulfate [Proair Hfa] 1 - 2 puff INHALATION RT-Q6H PRN 08/02/20 [History] metFORMIN HCL [Glucophage] 1,000 mg PO BID 08/02/20 [History] Magnesium Oxide [Mag-Ox] 400 mg PO DAILY 08/16/20 [History] Ciclesonide [Alvesco] 1 puff INHALATION RT-BID 09/12/20 [History] Metoprolol Tartrate [Lopressor] 100 mg PO BID 09/12/20 [History] glipiZIDE [Glucotrol] 10 mg PO DAILY 09/12/20 [History] lisinopriL [Zestril] 10 mg PO DAILY 09/28/20 [History] Acetaminophen Tab [Tylenol Tab] 650 mg PO Q4H PRN #30 tablet 10/13/20 [Rx] Docusate Oral Soln [Colace Oral Soln] 100 mg PO BID PRN ml 10/13/20 [Rx] Ibuprofen [Motrin] 600 mg PO Q8HR PRN #30 tab 10/13/20 [Rx] Mag Hydrox/Al Hydrox/Simeth [Maalox] 30 ml PO QID #1000 ml 10/13/20 [Rx] Levofloxacin [Levaquin] 500 mg PO DAILY 1 Days #7 tab 10/18/20 [Rx] Follow up Appointment(s)/Referral(s): [facility] [Primary Care Provider] - 1-2 days Justin Fernandez MD [STAFF PHYSICIAN] - 2 Weeks Patient Instructions/Handouts: Bowel Obstruction (DC) Discharge Disposition: HOME SELF-CARE
[2020-10-18] MEDS: MAG HYDROX/AL HYDROX/SIMETH 30 ML CUP PO SCH (10:53)
[2020-10-18] MEDS: METOPROLOL TARTRATE 50 MG TAB PO SCH (10:53)
[2020-10-18] MEDS: lisinopriL 10 MG TAB PO SCH (10:53)
[2020-10-18] MEDS: MAGNESIUM OXIDE 400 MG TAB PO SCH (10:53)
[2020-10-18] MEDS: ENOXAPARIN 40 MG/0.4 ML SYRINGE SQ SCH (10:55)
[2020-10-18] MEDS: PANTOPRAZOLE 40 MG/10 ML VIAL IVP SCH (11:11)
[2020-10-18 11:41] LABS: Glucose,Whole Blood 92 mg/dL (75-99)
--- NOTE | 2020-10-18 14:05 | P.PN ---
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 Patient is currently residing in [facility]. Patient was admitted to the hospital from September 12 through September 27 which time he was treated for partial small bowel obstruction s/p partial omentectomy, lysis of adhesions and repair of incisional hernia 09/21 Dr. Fernandez. [facility] was [facility] on October 13 2020. Patient was brought into [facility] emergency center for evaluation. He apparently developed increased right sided abdominal pain along with chest pain yesterday. He did have some loose stools yesterday denies any blood, fever or chills, has been nauseated with difficulty trouble tolerating his clear liquid diet. EKG showed normal sinus rhythm with no evidence of ST elevation or depression and troponins were negative. Labs revealed elevated white blood cell count 16.4, lactic was negative, CT of the abdomen and pelvis showed small bowel obstruction. Chest x-ray was negative. He did have an elevated temp of 100.0 while in the emergency room and was admitted on IV antibi otics with consult for dressing in place. He remains afebrile now, pulse 104, blood pressure 115/81, pulse ox 98% on room air. 10/16 patient evaluated at bedside, reports he still having some nausea and right lower quadrant pain. On clear liquid diet at this time requesting to advance if okay with Dr. Fernandez. Vital signs are stable, patient remains afebrile, pulse 84, blood pressure 109/77, pulse ox 96% on room air. Discussed with patient decreasing Dilaudid use to help decrease nausea and increase peristalsis movements. Patient remains on IV Zosyn. Will advance diet per surgery's oswald mmendations and monitor patient. 10/17: Patient states that he is feeling tired. He has bowel movements. He is on a full liquid diet. He is followed closely by general surgery. He has been afebrile, heart rate 81, blood pressure 120/77, pulse ox 99% on room air. Repeat blood work reveals WBC 8, hemoglobin 10.4, platelet count 462. Capillary blood glucose running between 77 and 105. Midline was placed today as patient had no IV access. 10/18: Patient is having bowel movements. He is continued on full liquid diet and tolerating without nausea or vomiting. He has had no fever or chills. Dr. Fernandez is planning for discharge today with Levaquin and continue on full liquid diet only. Patient has been afebrile, heart rate 79, blood pressure 140/82, pulse ox 97% on room air. Capillary blood glucose running between 92 and 98. Patient has been cleared for discharge from internal medicine. Medication reconciliation has been reviewed REVIEW OF SYSTEMS Constitutional: No fever, no chills, no night sweats. No weight change. No weakness, fatigue or lethargy. No daytime sleepiness. EENT: No headache. No blurred vision or double vision, no loss of vision. No loss of Hearing, no ringing in the ears, no dizziness. No nasal drainage or congestion. No epistaxis. No sore throat. Lungs: No shortness of breath, cough, no sputum production. No wheezing. Cardiovascular: No chest pain, no lower extremity edema. No palpitations. No paroxysmal nocturnal dyspnea. No orthopnea. No lightheadedness or dizziness. No syncopal episodes. Abdominal: Reports mild generalized abdominal pain. Denies nausea, no vomiting. Positive for loose stools. No bloody or tarry stools. Reports loss of appetite. Genitourinary: No dysuria, increased frequency, urgency. No urinary retention. Musculoskeletal: No myalgias. No muscle weakness, no gait dysfunction, no frequent falls. No back pain. No neck pain. Integumentary: No wounds, no lesions. No rash or pruritus. No unusual bruising. No change in hair or nails. Neurologic: No aphasia. No facial droop. No change in mentation. No head injury. No headache. No paralysis. No paresthesia. Psychiatric: No depression. No anxiety. No mood swings. Endocrine: No abnormal blood sugars. No weight change. PHYSICAL EXAMINATION Gen: This is an obese 49-year-old male. Patient is resting, appears to be in no acute distress. HEENT: Head is atraumatic, normocephalic. Pupils equal, round. Sclerae is anicteric. NECK: Supple. No JVD. No lymphadenopathy. No thyromegaly. LUNGS: Clear to auscultation. No wheezes or rhonchi. No intercostal retractions. HEART: Regular rate and rhythm. No murmur. ABDOMEN: Soft. Bowel sounds are present. No masses. Mild generalized tend erness. EXTREMITIES: No pedal edema. No calf tenderness. NEUROLOGICAL: Patient is awake, alert and oriented x3. Cranial nerves 2 through 12 are grossly intact. ASSESSMENT AND PLAN 1. Recurrent Small bowel obstruction or ileus. Admitted with Dr. Fernandez. Patient is on full liquids. Plan is for Levaquin for 7 days. 2. Recent hospitalization for Partial small bowel obstruction s/p partial omentectomy, lysis of adhesions and repair of incisional hernia 09/21. 3. History of renal cell cancer, stable. 4. Hypertension. Continue hydrochlorothiazide 12.5 mg daily, lisinopril 10 mg at bedtime, Lopressor 100 mg twice daily, 5. Hyperlipidemia. fenofibrate 160 mg at bedtime. 6. Diabetes mellitus type 2. Hold glipizide 10 mg daily, resume metformin 1000 mg twice daily, discontinue NovoLog scale will be added before meals and at bedtime 7. Gastroesophageal reflux disease. Continue Protonix 40 mg daily oral. 8. Chronic back pain. 9. History of SVT. Continue Lopressor. 10. DVT prophylaxis. Discontinue Lovenox 11. GI prophylaxis on Protonix DISCHARGE PLAN Return To Group Home Impression and plan of care have been directed as dictated by the signing physician. Jessica Negrete nurse practitioner acting as scribe for signing physician. Objective - Vital Signs Vital signs: Vital Signs Temp 97.8 F 10/18/20 07:24 Pulse 79 10/18/20 07:30 Resp 18 10/18/20 07:30 BP 140/82 10/18/20 07:24 Pulse Ox 97 10/18/20 07:24 Intake & Output 10/17/20 10/18/20 10/18/20 18:59 06:59 18:59 Intake Total 1959 Balance 1959 Intake: Intake, IV Titration 1660 Amount Piperacillin-Tazobactam 3 100 .375 gm In Sodium Chloride 0.9% 100 ml @ 25 mls/hr IVPB Q8H [facility] Rx#: [id number] Sodium Chloride 0.9% 1, 1560 000 ml @ 130 mls/hr IV . [id number] [facility] Rx#:[id number] Oral 300 Other: Voiding Method Toilet # Voids 3 3 - Labs CBC & Chem 7: 10/17/20 06:17 10/16/20 11:24 Labs: Abnormal Lab Results - Last 24 Hours (Table) 10/17/20 10/17/20 Range/Units 06:17 11:19 RBC 3.67 L (4.40-5.60) X 10*6/uL Hgb 10.4 L (13.0-17.0) g/dL Hct 33.4 L (39.6-50.0) % MCHC 31.1 L (32.0-37.0) g/dL Plt Count 462 H (140-440) X 10*3/uL POC Glucose (mg/dL) 105 H (75-99) mg/dL
[2020-10-18] MEDS ORDERED: MELATONIN 3 MG TABLET PO SCH (21:00)
== END 2020-10-18 13:52 | disposition home or self-care (01) ==
LOC: EC 19:40 → EEVIPCON 19:40 → 4SSUR 23:42
PROVIDERS: ADMIT Surgery; ATTEND Surgery
DX: K56.7 Ileus, unspecified (principal); D72.829 Elevated white blood cell count, unspecified; K56.609 Unspecified intestinal obstruction, unspecified as to partial versus complete obstruction; E11.9 Type 2 diabetes mellitus without complications; E78.5 Hyperlipidemia, unspecified; F17.210 Nicotine dependence, cigarettes, uncomplicated; F31.9 Bipolar disorder, unspecified; F41.0 Panic disorder [episodic paroxysmal anxiety]; F41.1 Generalized anxiety disorder; F42.9 Obsessive-compulsive disorder, unspecified; F60.3 Borderline personality disorder; G89.29 Other chronic pain; I10 Essential (primary) hypertension; I48.91 Unspecified atrial fibrillation; J44.9 Chronic obstructive pulmonary disease, unspecified; K21.9 Gastro-esophageal reflux disease without esophagitis; Z90.49 Acquired absence of other specified parts of digestive tract; Z98.890 Other specified postprocedural states; K43.2 Incisional hernia without obstruction or gangrene; Z79.84 Long term (current) use of oral hypoglycemic drugs; Z79.899 Other long term (current) drug therapy; Z80.1 Family history of malignant neoplasm of trachea, bronchus and lung; Z82.49 Family history of ischemic heart disease and other diseases of the circulatory system; Z85.528 Personal history of other malignant neoplasm of kidney; Z87.11 Personal history of peptic ulcer disease
CPT/HCPCS: 96376 ×4; 96361 ×2; 96365; 96366 ×4; 96372 ×3; 96375 ×2; 99285; 36415; 93005; 36410; 76937; 80053 ×2; 83605; 83690; 84484; 85025 ×2; 85027; 81001; 71046; 74176; G0378 ×4; J2543 ×4; J2270; J2405 ×2; J1650 ×3; J1170 ×3; C9113 ×4

== ENCOUNTER 2020-10-21 10:06 | Inpatient (IN) | payer OTHER ==
[2020-10-21] MEDS ORDERED: ASPIRIN 81 MG PO STA (10:44)
[2020-10-21] MEDS ORDERED: NITROGLYCERIN OINT 1 INCH/GM PACKET TOPICAL STA (10:44)
--- NOTE | 2020-10-21 10:48 | ED ---
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 Patient states he is here because of chest pain. Patient states she's very short of breath and was diap horetic and nauseous earlier today and has been ongoing for 2 hours. Patient states she still is chest pain currently. Patient states he has no history of any heart disease but he is a diabetic hypertensive and high cholesterol. Patient states he recently quit smoking as well. Patient also states his mother has some sort of heart disease but is not sure what. Patient denies any recent fever chills or cough per patient denies any abdominal pain patient denies any vomiting or diarrhea. Patient denies any headache patient denies lightheadedness dizziness or near syncopal episode. - Related Data Home Medications Medication Instructions Recorded Confirmed Fenofibrate 160 mg PO HS 09/18/17 10/21/20 Pantoprazole Sodium [Protonix] 40 mg PO DAILY 10/12/19 10/21/20 Albuterol Sulfate [Proair Hfa] 2 puff INHALATION RT-QID PRN 08/02/20 10/21/20 metFORMIN HCL [Glucophage] 1,000 mg PO BID 08/02/20 10/21/20 Magnesium Oxide [Mag-Ox] 400 mg PO DAILY 08/16/20 10/21/20 Ciclesonide [Alvesco] 1 puff INHALATION RT-BID 09/12/20 10/21/20 Metoprolol Tartrate [Lopressor] 100 mg PO BID 09/12/20 10/21/20 lisinopriL [Zestril] 10 mg PO DAILY 09/28/20 10/21/20 Acetaminophen Tab [Tylenol Tab] 1,000 mg PO BID 10/21/20 10/21/20 Glucerna Shake 237 ml PO TID 10/21/20 10/21/20 Ibuprofen [Motrin Ib] 600 mg PO BID PRN 10/21/20 10/21/20 Levofloxacin [Levaquin] 500 mg PO HS 10/21/20 10/21/20 Previous Rx's Medication Instructions Recorded hydroCHLOROthiazide [Hydrodiuril] 12.5 mg PO DAILY #0 10/18/20 Allergies Allergy/AdvReac Type Severity Reaction Status Date / Time Iodinated Contrast Media AdvReac KIDNEY Verified 10/21/20 11:37 [Iodinated Contrast- Oral and IV Dye] Review of Systems ROS Statement: Those systems with pertinent positive or pertinent negative responses have been documented in the HPI. ROS Other: All systems not noted in ROS Statement are negative. Past Medical History Past Medical History: Atrial Fibrillation, Cancer, COPD, Diabetes Mellitus, GI Bleed, Hypertension Additional Past Medical History / Comment(s): RENAL CELL CA, DUODENAL ULCER, HIATAL HERNIA, BORDERLINE PERSONALITY DISORDER, PANIC EPISODES, ANXIETY, OCD, chronic back pain, chronic bronchitis History of Any Multi-Drug Resistant Organisms: None Reported Past Surgical History: Cholecystectomy, Hernia Repair Additional Past Surgical History / Comment(s): duodenal ulcer surgery, left kidney removal, BOWEL OBSTRUCTION SURGERY 10/08 Past Anesthesia/Blood Transfusion Reactions: No Reported Reaction Past Psychological History: Anxiety, Bipolar Smoking Status: Former smoker Past Alcohol Use History: None Reported Past Drug Use History: None Reported - Past Family History Father Family Medical History: Cancer Additional Family Medical History / Comment(s): lung cancer mets to brain General Exam - General Exam Comments Initial Comments: GENERAL: Patient is well-developed and well-nourished. Patient is nontoxic and well- hydrated and is in mild distress. ENT: Neck is soft and supple. No significant lymphadenopathy is noted. Oropharynx is clear. Moist mucous membranes. Neck has full range of motion without eliciting any pain. EYES: The sclera were anicteric and conjunctiva were pink and moist. Extraocular movements were intact and pupils were equal round and reactive to light. E yelids were unremarkable. PULMONARY: Unlabored respirations. Good breath sounds bilaterally. No audible rales rhonchi or wheezing was noted. CARDIOVASCULAR: There is a regular rate and rhythm without any murmurs gallops or rubs. ABDOMEN: Soft and nontender with normal bowel sounds. SKIN: Skin is clear with no lesions or rashes and otherwise unremarkable. NEUROLOGIC: Patient is alert and oriented x3. Cranial nerves II through XII are grossly intact. Motor and sensory are also intact. Normal speech, volume and content. Symmetrical smile. MUSCULOSKELETAL: Normal extremities with adequate strength and full range of motion. No lower extremity swelling or edema. No calf tenderness. LYMPHATICS: No significant lymphadenopathy is noted PSYCHIATRIC: Normal psychiatric evaluation. Limitations: no limitations Course Vital Signs 10/21/20 10:13 Temperature 97.9 F Pulse Rate 99 Respiratory 18 Rate Blood Pressure 119/78 O2 Sat by Pulse 96 Oximetry Medical Decision Making - Medical Decision Making EKG shows normal sinus rhythm at 91 bpm [place] interval 170 QRS is 82 QT interval 354 QTC is 435 per patient's EKG shows no ST segment elevation or depression. Chest x-ray shows no acute abnormality. Patient continued to complain of pain throughout his ED stay. Patient's kidney function was worsening his baseline. I spoke with Dr. Julio she agreed to admit the patient admitted the patient wrote a minute orders and consult cardiology. - Lab Data Result diagrams: 10/21/20 10:48 10/21/20 10:48 Lab Results 10/21/20 10/21/20 10/21/20 Range/Units 10:48 10:48 10:48 WBC 11.4 H (3.8-10.6) k/uL RBC 4.62 (4.30-5.90) m/uL Hgb 12.6 L (13.0-17.5) gm/dL Hct 41.5 (39.0-53.0) % MCV 89.9 (80.0-100.0) fL MCH 27.3 (25.0-35.0) pg MCHC 30.4 L (31.0-37.0) g/dL RDW 14.2 (11.5-15.5) % Plt Count 466 H (150-450) k/uL MPV 7.2 Neutrophils % 70 % Lymphocytes % 22 % Monocytes % 5 % Eosinophils % 0 % Basophils % 1 % Neutrophils # 7.9 H (1.3-7.7) k/uL Lymphocytes # 2.6 (1.0-4.8) k/uL Monocytes # 0.6 (0-1.0) k/uL Eosinophils # 0.0 (0-0.7) k/uL Basophils # 0.1 (0-0.2) k/uL PT 10.8 (9.0-12.0) sec INR 1.0 (<1.2) APTT 21.5 L (22.0-30.0) sec Sodium 138 (137-145) mmol/L Potassium 4.4 (3.5-5.1) mmol/L Chloride 104 (98-107) mmol/L Carbon Dioxide 22 (22-30) mmol/L Anion Gap 12 mmol/L BUN 14 (9-20) mg/dL Creatinine 2.45 H (0.66-1.25) mg/dL Est GFR (CKD-EPI)AfAm 34 (>60 ml/min/1.73 sqM) Est GFR (CKD-EPI)NonAf 30 (>60 ml/min/1.73 sqM) Glucose 100 H (74-99) mg/dL Calcium 10.3 H (8.4-10.2) mg/dL Magnesium 1.3 L (1.6-2.3) mg/dL Total Bilirubin 0.2 (0.2-1.3) mg/dL AST 17 (17-59) U/L ALT 12 (4-49) U/L Alkaline Phosphatase 51 (38-126) U/L Troponin I (0.000-0.034) ng/mL Total Protein 6.4 (6.3-8.2) g/dL Albumin 4.0 (3.5-5.0) g/dL 10/21/20 Range/Units 10:48 WBC (3.8-10.6) k/uL RBC (4.30-5.90) m/uL Hgb (13.0-17.5) gm/dL Hct (39.0-53.0) % MCV (80.0-100.0) fL MCH (25.0-35.0) pg MCHC (31.0-37.0) g/dL RDW (11.5-15.5) % Plt Count (150-450) k/uL MPV Neutrophils % % Lymphocytes % % Monocytes % % Eosinophils % % Basophils % % Neutrophils # (1.3-7.7) k/uL Lymphocytes # (1.0-4.8) k/uL Monocytes # (0-1.0) k/uL Eosinophils # (0-0.7) k/uL Basophils # (0-0.2) k/uL PT (9.0-12.0) sec INR (<1.2) APTT (22.0-30.0) sec Sodium (137-145) mmol/L Potassium (3.5-5.1) mmol/L Chloride (98-107) mmol/L Carbon Dioxide (22-30) mmol/L Anion Gap mmol/L BUN (9-20) mg/dL Creatinine (0.66-1.25) mg/dL Est GFR (CKD-EPI)AfAm (>60 ml/min/1.73 sqM) Est GFR (CKD-EPI)NonAf (>60 ml/min/1.73 sqM) Glucose (74-99) mg/dL Calcium (8.4-10.2) mg/dL Magnesium (1.6-2.3) mg/dL Total Bilirubin (0.2-1.3) mg/dL AST (17-59) U/L ALT (4-49) U/L Alkaline Phosphatase (38-126) U/L Troponin I 0.015 (0.000-0.034) ng/mL Total Protein (6.3-8.2) g/dL Albumin (3.5-5.0) g/dL Disposition Clinical Impression: Chest pain, Acute renal failure Disposition: ADMITTED IP TO THIS HOSP Referrals: [facility] [Primary Care Provider] - 1-2 days Time of Disposition: 12:45
[2020-10-21 11:18] LABS: Calcium 10.3 mg/dL (8.4-10.2); Magnesium 1.3 mg/dL (1.6-2.3); Potassium 4.4 mmol/L (3.5-5.1); Total Bilirubin 0.2 mg/dL (0.2-1.3); Total Protein 6.4 g/dL (6.3-8.2)
[2020-10-21 11:31] LABS: Prothrombin Time 10.8 sec (9.0-12.0)
[2020-10-21 11:32] LABS: Partial Thromboplastin Time 21.5 sec (22.0-30.0)
[2020-10-21 11:37] LABS: Basophils # (A) 0.1 k/uL (0-0.2); Basophils % (A) 1 %; Eosinophils % (A) 0 %; HCT 41.5 % (39.0-53.0); HGB 12.6 gm/dL (13.0-17.5); Lymphocytes # (A) 2.6 k/uL (1.0-4.8); Lymphocytes % (A) 22 %; MCH 27.3 pg (25.0-35.0); MCHC 30.4 g/dL (31.0-37.0); MCV 89.9 fL (80.0-100.0); Mean Platelet Volume 7.2; Monocytes # (A) 0.6 k/uL (0-1.0); Monocytes % (A) 5 %; Neutrophils # (A) 7.9 k/uL (1.3-7.7); Neutrophils % (A) 70 %; Platelet Count 466 k/uL (150-450); RBC 4.62 m/uL (4.30-5.90); RDW 14.2 % (11.5-15.5); WBC 11.4 k/uL (3.8-10.6)
--- NOTE | 2020-10-21 11:50 | XR ---
EXAMINATION TYPE: XR chest 2V DATE OF EXAM: 10/21/2020 COMPARISON: 10/14/2020 INDICATION: Chest pain TECHNIQUE: Frontal and lateral views of the chest are obtained. FINDINGS: The heart size is normal. The pulmonary vasculature is normal. The lungs are clear. IMPRESSION: 1. No acute pulmonary process.
[2020-10-21] MEDS ORDERED: KETOROLAC 15 MG/ML 1 ML VIAL IVP STA (12:32)
[2020-10-21] MEDS ORDERED: NITROGLYCERIN SL TABS 0.4 MG TAB SUBLINGUAL PRN (12:46)
[2020-10-21] MEDS ORDERED: ALBUTEROL HFA INHALER INHALATION PRN (18:00)
[2020-10-21] MEDS: traMADol 50 MG TAB PO PRN (18:24)
[2020-10-21] MEDS: NITROGLYCERIN OINT 1 INCH/GM PACKET TOPICAL SCH ×2 (18:25→23:01)
[2020-10-21] MEDS ORDERED: Magnesium Replacement Protocol 1 EACH MISC MISCELLANE PRN (19:02)
[2020-10-21 19:45] LABS: Appearance,Urine Clear (Clear); Bilirubin,Urine Negative (Negative); Blood,Urine Trace (Negative); Color,Urine Yellow; Glucose,Urine (UA) Negative (Negative); Granular Casts,Urine 4 /lpf (0); Hyaline Casts,Urine 13 /lpf (0-2); Ketones,Urine Negative (Negative); Leukocyte Esterase,Urine Negative (Negative); Mucus,Urine Occasional /hpf; Nitrite,Urine Negative (Negative); PH, Urine 5.5 (5.0-8.0); Protein,Urine 2+ (Negative); RBC,Urine 1 /hpf (0-5); Specific Gravity,Urine 1.025 (1.001-1.035); Urobilinogen,Urine <2.0 mg/dL (<2.0); WBC,Urine 3 /hpf (0-5)
[2020-10-21] MEDS: ACETAMINOPHEN TAB 500 MG TAB PO SCH (20:25)
[2020-10-21] MEDS: FENOFIBRATE 160 MG TAB PO SCH (20:26)
[2020-10-21] MEDS: metFORMIN 500 MG TAB PO SCH (20:26)
[2020-10-21] MEDS: METOPROLOL TARTRATE 50 MG TAB PO SCH (20:26)
[2020-10-21] MEDS: MAGNESIUM SULFATE-D5W PMX 1 GM in DEXTROSE/WATER 1 100ML.BAG IVPB SCH ×3 (20:26→22:30)
[2020-10-22] MEDS: traMADol 50 MG TAB PO PRN ×3 (03:36→17:32)
[2020-10-22] MEDS: NITROGLYCERIN OINT 1 INCH/GM PACKET TOPICAL SCH ×4 (06:30→23:00)
[2020-10-22] MEDS: PANTOPRAZOLE 40 MG TABLET PO SCH (06:30)
[2020-10-22] MEDS ORDERED: hydroCHLOROthiazide 12.5 MG CAP PO SCH (09:00)
--- NOTE | 2020-10-22 09:15 | P.CRDCN ---
History of Present Illness Consult date: 10/22/20 Chief complaint: Chest pain History of present illness: This is a 14-year-old gentleman who is currently incarcerated was brought to the hospital for further evaluation of chest discomfort as well as tachycardia. The patient describes intermittent episodes of chest discomfort for the last 6 months. She discomfort is in the middle of the chest as a sharp kind of discomfort without any radiation to the arms or neck or shoulders and without a ny associated symptoms of shortness of breath or any dizziness or lightheadedness or presyncope or syncope. Beside that at the present it was noted that the patient is tachycardic but there is no documentation of that. The patient stated that he's felt his heart was racing up. No history of cardi ac arrhythmia according to him. He does have diabetes and hypertension and dyslipidemia. The troponin came in to be unremarkable 3 times. The EKG showed sinus rhythm without significant ST or T-wave abnormalities. More importantly the creatinine came in to be elevated and that has been investigated with possible nephrology consult to see and evaluate the patient. Past Medical History Past Medical History: Atrial Fibrillation, Cancer, COPD, Diabetes Mellitus, GI Bleed, Hypertension Additional Past Medical History / Comment(s): RENAL CELL CA, DUODENAL ULCER, HIATAL HERNIA, BORDERLINE PERSONALITY DISORDER, PANIC EPISODES, ANXIETY, OCD, chronic back pain, chronic bronchitis History of Any Multi-Drug Resistant Organisms: None Reported Past Surgical History: Cholecystectomy, Hernia Repair Additional Past Surgical History / Comment(s): duodenal ulcer surgery, left kidney removal, BOWEL OBSTRUCTION SURGERY 10/08 Past Anesthesia/Blood Transfusion Reactions: No Reported Reaction Past Psychological History: Anxiety, Bipolar Additional Psychological History / Comment(s): OCD, borderline personality disorder Smoking Status: Former smoker Past Alcohol Use History: None Reported Additional Past Alcohol Use History / Comment(s): pt quit 08/2020. 2ppd previously Past Drug Use History: None Reported Additional Drug Use History / Comment(s): marijuana use had to stop because of panic attacks and heart fluttering - Past Family History Father Family Medical History: Cancer Additional Family Medical History / Comment(s): lung cancer mets to brain Medications and Allergies Home Medications Medication Instructions Recorded Confirmed Type Fenofibrate 160 mg PO HS 09/18/17 10/21/20 History Pantoprazole Sodium [Protonix] 40 mg PO DAILY 10/12/19 10/21/20 History Albuterol Sulfate [Proair Hfa] 2 puff INHALATION RT-QID PRN 08/02/20 10/21/20 History metFORMIN HCL [Glucophage] 1,000 mg PO BID 08/02/20 10/21/20 History Magnesium Oxide [Mag-Ox] 400 mg PO DAILY 08/16/20 10/21/20 History Ciclesonide [Alvesco] 1 puff INHALATION RT-BID 09/12/20 10/21/20 History Metoprolol Tartrate [Lopressor] 100 mg PO BID 09/12/20 10/21/20 History lisinopriL [Zestril] 10 mg PO DAILY 09/28/20 10/21/20 History hydroCHLOROthiazide [Hydrodiuril] 12.5 mg PO DAILY #0 10/18/20 10/21/20 Rx Acetaminophen Tab [Tylenol Tab] 1,000 mg PO BID 10/21/20 10/21/20 History Glucerna Shake 237 ml PO TID 10/21/20 10/21/20 History Ibuprofen [Motrin Ib] 600 mg PO BID PRN 10/21/20 10/21/20 History Levofloxacin [Levaquin] 500 mg PO HS 10/21/20 10/21/20 History Allergies Allergy/AdvReac Type Severity Reaction Status Date / Time Iodinated Contrast Media AdvReac KIDNEY Verified 10/21/20 11:37 [Iodinated Contrast- Oral and IV Dye] Physical Exam Vitals: Vital Signs Temp Pulse Pulse Resp BP BP Pulse Ox 10/22/20 03:20 98.0 F 88 16 119/70 99 10/21/20 23:27 98.0 F 89 16 135/72 97 10/21/20 20:00 98.3 F 95 16 158/53 99 10/21/20 17:14 16 10/21/20 16:40 98.1 F 95 16 140/70 98 10/21/20 16:30 98.5 F 97 20 126/85 97 10/21/20 15:13 84 18 132/85 97 10/21/20 12:47 88 20 122/87 98 10/21/20 10:13 97.9 F 99 18 119/78 96 Intake and Output 10/21/20 10/22/20 10/22/20 22:59 06:59 14:59 Intake Total 240 Output Total 280 Balance -40 Intake: Oral 240 Output: Urine 280 Other: Voiding Method Toilet Toilet # Voids 1 1 Weight 106.594 kg 107 kg - Constitutional General appearance: no acute distress - Respiratory Respiratory: bilateral: CTA - Cardiovascular Rhythm: regular Heart sounds: normal: S1, S2 Results 10/21/20 10:48 10/21/20 10:48 Cardiac Enzymes 10/21/20 10/21/20 10/21/20 Range/Units 10:48 10:48 14:07 AST 17 (17-59) U/L Troponin I 0.015 0.014 (0.000-0.034) ng/mL 10/21/20 Range/Units 16:56 AST (17-59) U/L Troponin I 0.018 (0.000-0.034) ng/mL Coagulation 10/21/20 Range/Units 10:48 PT 10.8 (9.0-12.0) sec APTT 21.5 L (22.0-30.0) sec CBC 10/21/20 Range/Units 10:48 WBC 11.4 H (3.8-10.6) k/uL RBC 4.62 (4.30-5.90) m/uL Hgb 12.6 L (13.0-17.5) gm/dL Hct 41.5 (39.0-53.0) % Plt Count 466 H (150-450) k/uL Comprehensive Metabolic Panel 10/21/20 Range/Units 10:48 Sodium 138 (137-145) mmol/L Potassium 4.4 (3.5-5.1) mmol/L Chloride 104 (98-107) mmol/L Carbon Dioxide 22 (22-30) mmol/L BUN 14 (9-20) mg/dL Creatinine 2.45 H (0.66-1.25) mg/dL Glucose 100 H (74-99) mg/dL Calcium 10.3 H (8.4-10.2) mg/dL AST 17 (17-59) U/L ALT 12 (4-49) U/L Alkaline Phosphatase 51 (38-126) U/L Total Protein 6.4 (6.3-8.2) g/dL Albumin 4.0 (3.5-5.0) g/dL Current Medications Generic Name Dose Route Start Last Admin Trade Name Freq PRN Reason Stop Dose Admin Acetaminophen 1,000 mg 10/21/20 21:00 10/21/20 20:25 Acetaminophen Tab 500 Mg Tab PO 1,000 mg BID [facility] Administration Albuterol Sulfate 2 puff 10/21/20 18:00 Albuterol Hfa Inhaler INHALATION RT-QID PRN Shortness Of Breath Aspirin 325 mg 10/22/20 09:00 Aspirin 325 Mg Tab PO DAILY [facility] Fenofibrate 160 mg 10/21/20 21:00 10/21/20 20:26 Fenofibrate 160 Mg Tab PO 160 mg HS [facility] Administration Hydrochlorothiazide 12.5 mg 10/22/20 09:00 Hydrochlorothiazide 12.5 Mg Cap PO DAILY [facility] Lisinopril 10 mg 10/22/20 09:00 Lisinopril 10 Mg Tab PO DAILY [facility] Magnesium Oxide 400 mg 10/22/20 09:00 Magnesium Oxide 400 Mg Tab PO DAILY [facility] Metformin HCl 1,000 mg 10/21/20 21:00 10/21/20 20:26 Metformin 500 Mg Tab PO 1,000 mg BID [facility] Administration Metoprolol Tartrate 100 mg 10/21/20 21:00 10/21/20 20:26 Metoprolol Tartrate 50 Mg Tab PO 100 mg BID [facility] Administration Miscellaneous Information 1 each 10/21/20 19:02 Magnesium Replacement Protocol 1 Each Misc MISCELLANE DAILY PRN Per Protocol Protocol Nitroglycerin 0.4 mg 10/21/20 12:46 Nitroglycerin Sl Tabs 0.4 Mg Tab SUBLINGUAL Q5M PRN Chest Pain Nitroglycerin 1 inch 10/21/20 18:00 10/22/20 06:30 Nitroglycerin Oint 1 Inch/Gm Packet TOPICAL 1 inch Q6HR [facility] Administration Pantoprazole Sodium 40 mg 10/22/20 07:30 10/22/20 06:30 Pantoprazole 40 Mg Tablet PO 40 mg DAILY@0730 [facility] Administration Tramadol HCl 50 mg 10/21/20 18:01 10/22/20 03:36 Tramadol 50 Mg Tab PO 50 mg QID PRN Administration Mild to Moderate Pain Intake and Output 10/21/20 10/22/20 10/22/20 22:59 06:59 14:59 Intake Total 240 Output Total 280 Balance -40 Intake: Oral 240 Output: Urine 280 Other: Voiding Method Toilet Toilet # Voids 1 1 Weight 106.594 kg 107 kg 10/21/20 10:48 10/21/20 10:48 Assessment and Plan Assessment: Assessment #1 atypical chest discomfort #2 acute renal failure #3 diabetes type 2 #4 hypertension #5 dyslipidemia Plan #1 acute coronary event was ruled out #2 evaluate the etiology of the renal failure #3 obtain an echocardiogram was Doppler #4 follow-up with the patient
[2020-10-22] MEDS: METOPROLOL TARTRATE 50 MG TAB PO SCH ×2 (09:43→20:01)
[2020-10-22] MEDS: metFORMIN 500 MG TAB PO SCH (09:45)
[2020-10-22] MEDS: lisinopriL 10 MG TAB PO SCH ×2 (09:45→09:46)
[2020-10-22] MEDS: ASPIRIN 325 MG TAB PO SCH (09:45)
[2020-10-22] MEDS: MAGNESIUM OXIDE 400 MG TAB PO SCH (09:46)
[2020-10-22] MEDS: ACETAMINOPHEN TAB 500 MG TAB PO SCH ×2 (09:46→20:02)
[2020-10-22 09:50] LABS: Magnesium 1.7 mg/dL (1.6-2.3)
[2020-10-22] MEDS ORDERED: LIDOCAINE 4% CREAM 5 GM TUBE TOPICAL PRN (16:31)
--- NOTE | 2020-10-22 16:34 | US ---
EXAMINATION TYPE: US kidneys/renal and bladder DATE OF EXAM: 10/22/2020 COMPARISON: CT, prior Abd Limited US Ultrasound 11/27/2016 CLINICAL HISTORY: kidney failure hydro eval. Kidney failure hydro eval per order. Hx left nephrectomy in 2003 due to renal CA. EXAM MEASUREMENTS: Right Kidney: 12.1 x 6.8 x 7.3 cm Left Kidney: Hx left nephrectomy. Right Kidney: No hydronephrosis or masses seen. Measures upper limits of normal versus slightly enlar ged. Left Kidney: Hx left nephrectomy. Bladder: Anechoic. Bilateral Jets seen: Right jet seen, Hx left nephrectomy. IMPRESSION: No evidence of renal mass or obstruction. There is intact urinary bladder. No adverse change of the right kidney compared to old ultrasound exam.
--- NOTE | 2020-10-22 17:44 | P.HPIM ---
History of Present Illness H&P Date: 10/22/20 Chief Complaint: Chest pain This is a 49-year-old gentleman followed by the [facility] clinic who is currently incarcerated, brought into emergency room to chest pain as well as sinus tachycardia. Patient has had intermittent chest pain for several months now approximately 6 months, process multiple admissions for bowel obstruction, none of which is currently a problem. His pain is noted on the anterior chest wall region, without any medication, he takes Tylenol for this at the [facility] patient has no current NSAID use, and no hypotension however when he presents to the em ergency room, creatinine is elevated 2.45, his last creatinine was 1.0 approximately mid September 2020. He also lost 35 pounds secondary to bowel obstruction. Magnesium was low at 1.3, glucose is 100. INR 1.0, hemoglobin of 12.6. His troponin was negative 3, EKG shows normal sinus rhythm without significant ST-T wave changes, patient is admitted with consult to cardiology, and nephrology. On the interim, we discontinued metformin, lisinopril, started amlodipine, and discontinued hydrochlorothiazide. Urinalysis showing moderate proteinuria, without any hematuria. PVR requested, was unremarkable, renal ultrasound requested consult with nephrology, patient is escorted with police officers routinely. Review of Systems Constitutional: Reports as per HPI, Denies anorexia, Denies chills, Denies chronic headaches, Denies chronic pain, Denies daytime sleepiness, Denies fatigue, Denies fever, Denies lethargy, Denies malaise, Denies night sweats, Denies poor appetite, Denies sweats, Denies weakness, Denies weight gain, Denies weight loss Ears, nose, mouth and throat: Reports as per HPI Cardiovascular: Reports as per HPI, Denies chest pain, Denies claudication, Denies decreased exercise tolerance, Denies dyspnea on exertion, Denies edema, Denies high blood pressure, Denies irregular heart beat, Denies leg edema, Denies lightheadedness, Denies orthopnea, Denies palpitations, Denies paroxysmal nocturnal dyspnea, Denies phlebitis, Denies rapid heart beat, Denies shortness of breath, Denies syncope Respiratory: Reports as per HPI Gastrointestinal: Reports as per HPI, Denies abdominal pain, Denies belching, Denies bloating, Denies BRBPR, Denies change in bowel habits, Denies coffee ground emesis, Denies constipation, Denies diarrhea, Denies dyspepsia, Denies early satiety, Denies excessive gas, Denies heartburn, Denies hematemesis, Denies hematochezia, Denies indigestion, Denies jaundice, Denies lactose intolerance, Denies loss of appetite, Denies melena, Denies nausea, Denies vomiting Past Medical History Past Medical History: Atrial Fibrillation, Cancer, COPD, Diabetes Mellitus, GI Bleed, Hypertension Additional Past Medical History / Comment(s): RENAL CELL CA, DUODENAL ULCER, HIATAL HERNIA, BORDERLINE PERSONALITY DISORDER, PANIC EPISODES, ANXIETY, OCD, chronic back pain, chronic bronchitis History of Any Multi-Drug Resistant Organisms: None Reported Past Surgical History: Cholecystectomy, Hernia Repair Additional Past Surgical History / Comment(s): duodenal ulcer surgery, left kidney removal, BOWEL OBSTRUCTION SURGERY 10/08 Past Anesthesia/Blood Transfusion Reactions: No Reported Reaction Past Psychological History: Anxiety, Bipolar Additional Psychological History / Comment(s): OCD, borderline personality disorder Smoking Status: Former smoker Past Alcohol Use History: None Reported Additional Past Alcohol Use History / Comment(s): pt quit 08/2020. 2ppd previously Past Drug Use History: None Reported Additional Drug Use History / Comment(s): marijuana use had to stop because of panic attacks and heart fluttering - Past Family History Father Family Medical History: Cancer Additional Family Medical History / Comment(s): lung cancer mets to brain Medications and Allergies Home Medications Medication Instructions Recorded Confirmed Type Fenofibrate 160 mg PO HS 09/18/17 10/21/20 History Pantoprazole Sodium [Protonix] 40 mg PO DAILY 10/12/19 10/21/20 History Albuterol Sulfate [Proair Hfa] 2 puff INHALATION RT-QID PRN 08/02/20 10/21/20 History metFORMIN HCL [Glucophage] 1,000 mg PO BID 08/02/20 10/21/20 History Magnesium Oxide [Mag-Ox] 400 mg PO DAILY 08/16/20 10/21/20 History Ciclesonide [Alvesco] 1 puff INHALATION RT-BID 09/12/20 10/21/20 History Metoprolol Tartrate [Lopressor] 100 mg PO BID 09/12/20 10/21/20 History lisinopriL [Zestril] 10 mg PO DAILY 09/28/20 10/21/20 History hydroCHLOROthiazide [Hydrodiuril] 12.5 mg PO DAILY #0 10/18/20 10/21/20 Rx Acetaminophen Tab [Tylenol Tab] 1,000 mg PO BID 10/21/20 10/21/20 History Glucerna Shake 237 ml PO TID 10/21/20 10/21/20 History Ibuprofen [Motrin Ib] 600 mg PO BID PRN 10/21/20 10/21/20 History Levofloxacin [Levaquin] 500 mg PO HS 10/21/20 10/21/20 History Allergies Allergy/AdvReac Type Severity Reaction Status Date / Time Iodinated Contrast Media AdvReac KIDNEY Verified 10/21/20 11:37 [Iodinated Contrast- Oral and IV Dye] Physical Exam Vitals: Vital Signs Temp Pulse Pulse Resp BP BP Pulse Ox 10/22/20 03:20 98.0 F 88 16 119/70 99 10/21/20 23:27 98.0 F 89 16 135/72 97 10/21/20 20:00 98.3 F 95 16 158/53 99 10/21/20 17:14 16 10/21/20 16:40 98.1 F 95 16 140/70 98 10/21/20 16:30 98.5 F 97 20 126/85 97 10/21/20 15:13 84 18 132/85 97 10/21/20 12:47 88 20 122/87 98 10/21/20 10:13 97.9 F 99 18 119/78 96 Intake and Output 10/21/20 10/22/20 10/22/20 22:59 06:59 14:59 Intake Total 240 Output Total 280 Balance -40 Intake: Oral 240 Output: Urine 280 Other: Voiding Method Toilet Toilet # Voids 1 1 Weight 106.594 kg 107 kg - Constitutional General appearance: cooperative, no acute distress, obese - EENT Eyes: EOMI, PERRLA, dentition normal ENT: NA/AT, normal oropharynx - Neck Neck: normal ROM - Respiratory Respiratory: bilateral: CTA, negative: diminished, dullness, rales - Cardiovascular Heart sounds: normal: S1, S2 - Gastrointestinal General gastrointestinal: normal bowel sounds, soft - Integumentary Integumentary: decreased turgor, normal - Neurologic Neurologic: CNII-XII intact - Musculoskeletal Musculoskeletal: gait normal, strength equal bilaterally - Psychiatric Psychiatric: A&O x's 3, appropriate affect Results CBC & Chem 7: 10/21/20 10:48 10/21/20 10:48 Labs: Abnormal Lab Results - Last 24 Hours (Table) 10/21/20 10/21/20 10/21/20 Range/Units 10:48 10:48 10:48 WBC 11.4 H (3.8-10.6) k/uL Hgb 12.6 L (13.0-17.5) gm/dL MCHC 30.4 L (31.0-37.0) g/dL Plt Count 466 H (150-450) k/uL Neutrophils # 7.9 H (1.3-7.7) k/uL APTT 21.5 L (22.0-30.0) sec Creatinine 2.45 H (0.66-1.25) mg/dL Glucose 100 H (74-99) mg/dL Calcium 10.3 H (8.4-10.2) mg/dL Magnesium 1.3 L (1.6-2.3) mg/dL Creatine Kinase (55-170) U/L Urine Protein (Negative) Urine Blood (Negative) Hyaline Casts (0-2) /lpf Urine Mucus (None) /hpf 10/21/20 10/21/20 Range/Units 10:48 19:21 WBC (3.8-10.6) k/uL Hgb (13.0-17.5) gm/dL MCHC (31.0-37.0) g/dL Plt Count (150-450) k/uL Neutrophils # (1.3-7.7) k/uL APTT (22.0-30.0) sec Creatinine (0.66-1.25) mg/dL Glucose (74-99) mg/dL Calcium (8.4-10.2) mg/dL Magnesium (1.6-2.3) mg/dL Creatine Kinase 45 L (55-170) U/L Urine Protein 2+ H (Negative) Urine Blood Trace H (Negative) Hyaline Casts 13 H (0-2) /lpf Urine Mucus Occasional H (None) /hpf Thrombosis Risk Factor Assmnt - Choose All That Apply Each Factor Represents 1 point: Age 41-60 years, Obesity (BMI >25) Thrombosis Risk Factor Assessment Total Risk Factor Score: 2 Thrombosis Risk Factor Assessment Level: Low Risk Assessment and Plan Plan: 1. Atypical chest pain, ruled out [place], troponins 3 are negative, patient's continue Lopressor, patient is seen by cardiology, he is to have an echo echocardiogram and TSH checked 2. Recent hospitalization for Partial small bowel obstruction s/p partial omentectomy, lysis of adhesions and repair of incisional hernia 09/21. 3. Acute kidney failure, with history of renal cancer, prior left nephrectomy, hold off any Toradol, no NSAIDs at this time, discontinue metformin, as the creatinine is elevated. PVR has been checked normal, renal ultrasound requested. No IV contrast studies at this time, secondary to kidney failure. Nephrology consultation 3. History of renal cell cancer, stable. 4. Hypertension. Discontinue Continue hydrochlorothiazide 12.5 mg daily, lisinopril 10 mg at bedtime, , restart Lopressor 100 mg twice daily, start amlodipine 5 mg 5. Hyperlipidemia. fenofibrate 160 mg at bedtime. 6. Diabetes mellitus type 2. NovoLog scale,, discontinue metformin 1000 mg twice daily, discontinue NovoLog scale will be added before meals and at bedtime 7. Gastroesophageal reflux disease. Continue Protonix 40 mg daily oral. 8. Chronic back pain. 9. History of SVT. Continue Lopressor. 10. Right flank pain, start methocarbamol 4 times a day when necessary, lidocaine topical to the right flank. 10. DVT prophylaxis. Dcontinue Lovenox
[2020-10-22] MEDS ORDERED: traMADol 50 MG TAB PO STA (17:45)
[2020-10-22] MEDS: methocarbamoL 500 MG TAB PO PRN (17:58)
[2020-10-22] MEDS ORDERED: HYDROcodone/APAP 5-325MG 1 EACH TAB PO PRN (19:11)
[2020-10-22] MEDS: FENOFIBRATE 160 MG TAB PO SCH (20:02)
[2020-10-22 20:13] LABS: Appearance,Urine Clear (Clear); Bilirubin,Urine Negative (Negative); Blood,Urine Trace (Negative); Color,Urine Yellow; Glucose,Urine (UA) Negative (Negative); Ketones,Urine Negative (Negative); Leukocyte Esterase,Urine Negative (Negative); Mucus,Urine Rare /hpf; Nitrite,Urine Negative (Negative); PH, Urine 5.5 (5.0-8.0); Protein,Urine 1+ (Negative); RBC,Urine 1 /hpf (0-5); Squamous Epithelial Cell,Urine <1 /hpf (0-4); Urobilinogen,Urine <2.0 mg/dL (<2.0); WBC,Urine 1 /hpf (0-5)
[2020-10-22 22:44] LABS: Glucose,Whole Blood 103 mg/dL (75-99)
[2020-10-23] MEDS: methocarbamoL 500 MG TAB PO PRN ×2 (04:20→23:51)
[2020-10-23 06:24] LABS: Glucose,Whole Blood 98 mg/dL (75-99)
[2020-10-23] MEDS: PANTOPRAZOLE 40 MG TABLET PO SCH (06:24)
[2020-10-23] MEDS: NITROGLYCERIN OINT 1 INCH/GM PACKET TOPICAL SCH ×3 (06:24→20:39)
[2020-10-23] MEDS: traMADol 50 MG TAB PO PRN ×3 (06:24→21:37)
--- NOTE | 2020-10-23 07:35 | P.PN ---
Subjective Progress Note Date: 10/23/20 Principal diagnosis: Chest pain This is a 50-year-old prisoner who was admitted to the hospital with a chest discomfort. He was found to be in acute renal failure. He was seen this morning. He is chest pain-free. He is in process of seeing the nephrology service. He was ruled out for acute coronary syndrome. Hemodynamically he is is stable with equivocal pressure and also good heart rate. He is on aspirin and he is on beta cuca. The patient need to have a stress test probably as an outpatient giving the iday . Objective - Vital Signs Vital signs: Vital Signs Temp 97.9 F 10/23/20 03:34 Pulse 77 10/23/20 03:34 Resp 16 10/23/20 03:34 BP 120/61 10/23/20 03:34 Pulse Ox 98 10/23/20 03:34 Intake & Output 10/22/20 10/23/20 10/23/20 18:59 06:59 18:59 Intake Total 436 240 Output Total 50 Balance 386 240 Weight 107.5 kg Intake: Oral 436 240 Output: Post Void Residual 50 Other: Voiding Method Toilet # Voids 2 1 - Constitutional General appearance: Present: no acute distress - Respiratory Respiratory: bilateral: CTA - Cardiovascular Rhythm: regular Heart sounds: normal: S1, S2 - Labs CBC & Chem 7: 10/21/20 10:48 10/21/20 10:48 Labs: Abnormal Lab Results - Last 24 Hours (Table) 10/22/20 10/22/20 Range/Units 22:42 Unknown POC Glucose (mg/dL) 103 H (75-99) mg/dL Urine Protein 1+ H (Negative) Urine Blood Trace H (Negative) Urine Mucus Rare H (None) /hpf Assessment and Plan Assessment: Assessment #1 atypical chest discomfort #2 acute renal failure #3 diabetes type 2 #4 hypertension #5 dyslipidemia Plan #1 acute coronary syndrome was ruled out #2 follow-up on the echocardiogram #3 follow-up on the nephrology consult #4 follow-up with the patient
[2020-10-23 09:15] LABS: Calcium 9.7 mg/dL (8.4-10.2); Potassium 4.7 mmol/L (3.5-5.1)
[2020-10-23] MEDS: ACETAMINOPHEN TAB 500 MG TAB PO SCH ×2 (09:32→21:36)
[2020-10-23] MEDS: amLODIPine 5 MG TAB PO SCH (09:32)
[2020-10-23] MEDS: MAGNESIUM OXIDE 400 MG TAB PO SCH (09:33)
[2020-10-23] MEDS: METOPROLOL TARTRATE 50 MG TAB PO SCH ×2 (09:33→21:36)
[2020-10-23] MEDS: ASPIRIN 325 MG TAB PO SCH (09:33)
--- NOTE | 2020-10-23 11:32 | P.NPCON ---
History of Present Illness - Reason for Consult Consult date: 10/23/20 acute renal failure - Chief Complaint Acute kidney injury and chest pain - History of Present Illness 50-year-old male seen in consultation for acute kidney injury and history of left nephrectomy in 2003 for renal cell carcinoma. He came in with chest pain. Chest pain has resolved. He is currently asymptomatic. Admission medications included ibuprofen and lisinopril. He was also on Levaqui n and Protonix. Is known with diabetes about 2-3 years as well as hypertension He denies any history of hematuria possibly some. No history of nausea vomiting diarrhea. No loss of appetite. Past Medical History Past Medical History: Atrial Fibrillation, Cancer, COPD, Diabetes Mellitus, GI Bleed, Hypertension Additional Past Medical History / Comment(s): RENAL CELL CA, DUODENAL ULCER, HIATAL HERNIA, BORDERLINE PERSONALITY DISORDER, PANIC EPISODES, ANXIETY, OCD, chronic back pain, chronic bronchitis History of Any Multi-Drug Resistant Organisms: None Reported Past Surgical History: Cholecystectomy, Hernia Repair Additional Past Surgical History / Comment(s): duodenal ulcer surgery, left kidney removal, BOWEL OBSTRUCTION SURGERY 10/08 Past Anesthesia/Blood Transfusion Reactions: No Reported Reaction Past Psychological History: Anxiety, Bipolar Additional Psychological History / Comment(s): OCD, borderline personality disorder Smoking Status: Former smoker Past Alcohol Use History: None Reported Additional Past Alcohol Use History / Comment(s): pt quit 08/2020. 2ppd previously Past Drug Use History: None Reported Additional Drug Use History / Comment(s): marijuana use had to stop because of panic attacks and heart fluttering - Past Family History Father Family Medical History: Cancer Additional Family Medical History / Comment(s): lung cancer mets to brain Medications and Allergies Home Medications Medication Instructions Recorded Confirmed Type Fenofibrate 160 mg PO HS 09/18/17 10/21/20 History Pantoprazole Sodium [Protonix] 40 mg PO DAILY 10/12/19 10/21/20 History Albuterol Sulfate [Proair Hfa] 2 puff INHALATION RT-QID PRN 08/02/20 10/21/20 History metFORMIN HCL [Glucophage] 1,000 mg PO BID 08/02/20 10/21/20 History Magnesium Oxide [Mag-Ox] 400 mg PO DAILY 08/16/20 10/21/20 History Ciclesonide [Alvesco] 1 puff INHALATION RT-BID 09/12/20 10/21/20 History Metoprolol Tartrate [Lopressor] 100 mg PO BID 09/12/20 10/21/20 History lisinopriL [Zestril] 10 mg PO DAILY 09/28/20 10/21/20 History hydroCHLOROthiazide [Hydrodiuril] 12.5 mg PO DAILY #0 10/18/20 10/21/20 Rx Acetaminophen Tab [Tylenol Tab] 1,000 mg PO BID 10/21/20 10/21/20 History Glucerna Shake 237 ml PO TID 10/21/20 10/21/20 History Ibuprofen [Motrin Ib] 600 mg PO BID PRN 10/21/20 10/21/20 History Levofloxacin [Levaquin] 500 mg PO HS 10/21/20 10/21/20 History Allergies Allergy/AdvReac Type Severity Reaction Status Date / Time Iodinated Contrast Media AdvReac KIDNEY Verified 10/21/20 11:37 [Iodinated Contrast- Oral and IV Dye] Physical Exam Vitals: Vital Signs Temp Pulse Resp BP Pulse Ox 10/23/20 08:00 98.6 F 86 18 120/65 96 10/23/20 03:34 97.9 F 77 16 120/61 98 10/22/20 23:26 98.1 F 79 16 123/61 98 10/22/20 20:00 98.0 F 85 16 136/77 98 10/22/20 16:00 98.8 F 84 20 129/78 95 10/22/20 12:00 98.6 F 86 18 131/76 98 Intake and Output 10/22/20 10/23/20 10/23/20 22:59 06:59 14:59 Intake Total 240 Output Total 50 Balance -50 240 Intake: Oral 240 Output: Post Void Residual 50 Other: Voiding Method Toilet Toilet Toilet # Voids 1 Weight 107.5 kg Examination is awake alert oriented comfortable HEENT exam no JVP neck is supple no facial asymmetry Once clear to auscultation percussion good air entry bilaterally Heart sounds are unremarkable for any murmur rub gallop Abdomen soft nontender no organomegaly ascites masses Extremity exam was no edema Neurologically awake alert oriented. Results - Lab Results Most recent lab results Calcium 9.7 mg/dL (8.4-10.2) 09/05/21 08:01 Magnesium 1.7 mg/dL (1.6-2.3) 10/22/20 09:03 10/21/20 10:48 10/23/20 08:01 Assessment and Plan Assessment: Impression 1. Acute kidney injury with creatinine of 2.45 improved to 1.57. Etiology is nonsteroidals most likely. 2. On admission calcium slightly high at 10.3 but is corrected 9.7. We will just watch this. 3. 1+ proteinuria dated 2+ proteinuria possibly related to diabetic nephropathy. Not quantified 4. Admitted with chest pain resolved troponins were 0.15 and 0.18 5. History of diabetes for 2 years 6. History of hypertension for 2 years Recommendation 1. Try to avoid nephrotoxic medications such as nonsteroidals as well as the pantoprazole unless it is absolutely necessary because of the PPIs being related to chronic kidney disease and possible acute interstitial nephritis. 2. Maintain current medications including amlodipine and metoprolol. 3. Once creatinine is stable would like to introduce tammi inhibitors or ARB because of the possibility of diabetic nephropathy. 4. Needs to be followed up in the office. 5. Check urine protein to creatinine ratio before discharge Thank you for this consultation and we will continue to follow as needed
[2020-10-23 13:57] LABS: Chol/HDL Ratio 3.1; LDL Cholesterol,Calculated 35.6 mg/dL (0.0-131.0); VLDL Calculation 46.4 mg/dL (5.00-40.00)
--- NOTE | 2020-10-23 15:28 | P.PN ---
Subjective Progress Note Date: 10/23/20 This is a 49-year-old gentleman followed by the [facility] who is currently incarcerated, brought into emergency room to chest pain as well as sinus tachycardia. Patient has had intermittent chest pain for several months now approximately 6 months, process multiple admissions for bowel obstruction, none of which is currently a problem. His pain is noted on the anterior chest wall region, without any medication, he [facility] this at the [facility] patient has no current NSAID use, and no hypotension however when he presents to the emergency room, creatinine is elevated 2.45, his last creatinine was 1.0 approximately mid September 2020. He also lost 35 pounds secondary to bowel obstruction. Magnesium was low at 1.3, glucose is 100. INR 1.0, hemoglobin of 12.6. His troponin was negative 3, EKG shows normal sinus rhythm without significant ST-T wave changes, patient is admitted with consult to cardiology, and nephrology. On the interim, we discontinued metformin, lisinopril, started amlodipine, and discontinued hydrochlorothiazide. Urinalysis showing moderate proteinuria, without any hematuria. PVR requested, was unremarkable, renal ultrasound requested consult with nephrology, patient is escorted with police officers routinely. 10/23, creatinine is much better, 1.57, patient has still the same low back pain as he had, tramadol can be offered, patient is not constipated this time, he has a small rash in the incision area, which is a scab, no drainage noted to here, patient can apply Bactroban to these 1, and monitor for progression. Patient is still off nephrotoxic agents, blood pressure is still stable, cardiology wants him to have a stress test as outpatient, most likely to be stable for discharge in the morning, can restart tammi inhibition as an outpatient once creatinine is better. Patient can be transported to nephrology office and cardiology office, from [facility]. No NSAIDs at this time Review of Systems Constitutional: Reports as per HPI, Denies anorexia, Denies chills, Denies chronic headaches, Denies chronic pain, Denies daytime sleepiness, Denies fatigue, Denies fever, Denies lethargy, Denies malaise, Denies night sweats, Denies poor appetite, Denies sweats, Denies weakness, Denies weight gain, Denies weight loss Ears, nose, mouth and throat: Reports as per HPI Cardiovascular: Reports as per HPI, Denies chest pain, Denies claudication, Denies decreased exercise tolerance, Denies dyspnea on exertion, Denies edema, Denies high blood pressure, Denies irregular heart beat, Denies leg edema, Denies lightheadedness, Denies orthopnea, Denies palpitations, Denies paroxysmal nocturnal dyspnea, Denies phlebitis, Denies rapid heart beat, Denies shortness of breath, Denies syncope Respiratory: Reports as per HPI Gastrointestinal: Reports as per HPI, Denies abdominal pain, Denies belching, Denies bloating, Denies BRBPR, Denies change in bowel habits, Denies coffee ground emesis, Denies constipation, Denies diarrhea, Denies dyspepsia, Denies early satiety, Denies excessive gas, Denies heartburn, Denies hematemesis, Denies hematochezia, Denies indigestion, Denies jaundice, Denies lactose intolerance, Denies loss of appetite, Denies melena, Denies nausea, Denies vomiting Objective - Vital Signs Vital signs: Vital Signs Temp 98.4 F 10/23/20 12:00 Pulse 81 10/23/20 13:30 Resp 18 10/23/20 13:30 BP 107/63 10/23/20 12:00 Pulse Ox 95 10/23/20 12:00 Intake & Output 10/22/20 10/23/20 10/23/20 18:59 06:59 18:59 Intake Total 436 240 240 Output Total 50 Balance 386 240 240 Weight 107.5 kg Intake: Oral 436 240 240 Output: Post Void Residual 50 Other: Voiding Method Toilet Toilet # Voids 2 1 - Constitutional General appearance: Present: cooperative, no acute distress, obese - EENT Eyes: Present: EOMI, PERRLA ENT: Present: NA/AT, normal oropharynx - Neck Neck: Present: normal ROM - Respiratory Respiratory: bilateral: CTA, negative: diminished, dullness - Cardiovascular Rhythm: regular Heart sounds: normal: S1, S2 - Gastrointestinal General gastrointestinal: Present: normal bowel sounds, soft - Integumentary Integumentary: Present: normal, normal turgor - Neurologic Neurologic: Present: CNII-XII intact - Musculoskeletal Musculoskeletal: Present: gait normal, strength equal bilaterally - Labs CBC & Chem 7: 10/21/20 10:48 10/23/20 08:01 Labs: Abnormal Lab Results - Last 24 Hours (Table) 10/22/20 10/22/20 10/22/20 Range/Units 09:03 22:42 Unknown Sodium (137-145) mmol/L BUN (9-20) mg/dL Creatinine (0.66-1.25) mg/dL Glucose (74-99) mg/dL POC Glucose (mg/dL) 103 H (75-99) mg/dL Triglycerides 232.0 H (0.0-149.0) mg/dL VLDL Cholesterol, Calc 46.40 H (5.00-40.00) mg/dL HDL Cholesterol 39.0 L (40.0-60.0) mg/dL Urine Protein 1+ H (Negative) Urine Blood Trace H (Negative) Urine Mucus Rare H (None) /hpf 10/23/20 Range/Units 08:01 Sodium 135 L (137-145) mmol/L BUN 23 H (9-20) mg/dL Creatinine 1.57 H (0.66-1.25) mg/dL Glucose 119 H (74-99) mg/dL POC Glucose (mg/dL) (75-99) mg/dL Triglycerides (0.0-149.0) mg/dL VLDL Cholesterol, Calc (5.00-40.00) mg/dL HDL Cholesterol (40.0-60.0) mg/dL Urine Protein (Negative) Urine Blood (Negative) Urine Mucus (None) /hpf Assessment and Plan Plan: 1. Atypical chest pain, ruled out MD, troponins 3 are negative, patient's continue Lopressor, patient is seen by cardiology, he is to have an echo echocardiogram and TSH checked 2. Recent hospitalization for Partial small bowel obstruction s/p partial omentectomy, lysis of adhesions and repair of incisional hernia 09/21. 3. Acute kidney failure, with history of renal cancer, prior left nephrectomy, hold off any Toradol, no NSAIDs at this time, discontinue metformin, as the creatinine is elevated. PVR has been checked normal, renal ultrasound requested. No IV contrast studies at this time, secondary to kidney failure. Nephrology consultation will avoid NSAIDs, creatinine is better at 1.57 today 10/23 3. History of renal cell cancer, stable. 4. Hypertension. Discontinue Continue hydrochlorothiazide 12.5 mg daily, lisinopril 10 mg at bedtime, , restart Lopressor 100 mg twice daily, start amlodipine 5 mg 5. Hyperlipidemia. fenofibrate 160 mg at bedtime. 6. Diabetes mellitus type 2. NovoLog scale,, discontinue metformin 1000 mg twice daily, discontinue NovoLog scale will be added before meals and at bedtime 7. Gastroesophageal reflux disease. Continue Protonix 40 mg daily oral. 8. Chronic back pain. 9. History of SVT. Continue Lopressor. 10. Right flank pain, start methocarbamol 4 times a day when necessary, lidocaine topical to the right flank. 10. DVT prophylaxis. continue Lovenox 11. Right abdominal incisional scab, without fistula, no drainage, keep the wound dry, Neosporin or Bactroban can be placed
[2020-10-23 15:40] LABS: Creatinine,Urine Random 146.7 mg/dL; Protein/Creatinine Ratio,Urine 1.009
[2020-10-23 16:32] LABS: Glucose,Whole Blood 100 mg/dL (75-99)
[2020-10-23] MEDS: MUPIROCIN 2% OINT 22 GM TUBE TOPICAL SCH ×2 (16:33→21:38)
[2020-10-23 20:15] LABS: Glucose,Whole Blood 111 mg/dL (75-99)
[2020-10-23] MEDS: FENOFIBRATE 160 MG TAB PO SCH (21:36)
[2020-10-24] MEDS: NITROGLYCERIN OINT 1 INCH/GM PACKET TOPICAL SCH ×5 (00:05→23:16)
[2020-10-24 06:09] LABS: Glucose,Whole Blood 92 mg/dL (75-99)
[2020-10-24] MEDS: PANTOPRAZOLE 40 MG TABLET PO SCH (06:26)
[2020-10-24] MEDS: traMADol 50 MG TAB PO PRN ×2 (06:28→13:11)
[2020-10-24] MEDS: ASPIRIN 325 MG TAB PO SCH (08:55)
[2020-10-24] MEDS: MAGNESIUM OXIDE 400 MG TAB PO SCH (08:55)
[2020-10-24] MEDS: amLODIPine 5 MG TAB PO SCH (08:55)
[2020-10-24] MEDS: ACETAMINOPHEN TAB 500 MG TAB PO SCH ×2 (08:55→20:35)
[2020-10-24] MEDS: METOPROLOL TARTRATE 50 MG TAB PO SCH ×2 (08:55→20:35)
[2020-10-24] MEDS: MUPIROCIN 2% OINT 22 GM TUBE TOPICAL SCH ×3 (08:57→20:37)
--- NOTE | 2020-10-24 09:44 | P.PN ---
Subjective Progress Note Date: 10/24/20 Principal diagnosis: Chest pain This is a prisoner 50-year-old gentleman with diabetes who presented to the hospital initially with a chest discomfort which has resolved but he was found to be in acute renal failure. Subsequently the patient was seen by the nephrology service. The creatinine has been trending in the right direction. The patient was seen this morning. His chest pain-free for the last 48 hours. He denies any shortness of breath or dizziness or lightheadedness. He was ruled out for acute coronary event. An echo was ordered and still pending. Objective - Vital Signs Vital signs: Vital Signs Temp 97.8 F 10/24/20 04:00 Pulse 79 10/24/20 04:00 Resp 16 10/24/20 04:00 BP 133/72 10/24/20 04:00 Pulse Ox 97 10/24/20 04:00 Intake & Output 10/23/20 10/24/20 10/24/20 18:59 06:59 18:59 Intake Total 480 240 Balance 480 240 Weight 107.1 kg Intake: Oral 480 240 Other: Voiding Method Toilet Toilet # Voids 1 - Constitutional General appearance: Present: no acute distress - Respiratory Respiratory: bilateral: CTA - Cardiovascular Rhythm: regular Heart sounds: normal: S1, S2 - Labs CBC & Chem 7: 10/21/20 10:48 10/23/20 08:01 Labs: Abnormal Lab Results - Last 24 Hours (Table) 10/22/20 10/23/20 10/23/20 Range/Units 09:03 16:30 20:14 POC Glucose (mg/dL) 100 H 111 H (75-99) mg/dL Triglycerides 232.0 H (0.0-149.0) mg/dL VLDL Cholesterol, Calc 46.40 H (5.00-40.00) mg/dL HDL Cholesterol 39.0 L (40.0-60.0) mg/dL Assessment and Plan Assessment: Assessment #1 atypical chest discomfort #2 acute renal failure #3 diabetes type 2 #4 hypertension #5 dyslipidemia Plan #1 acute coronary syndrome was ruled out #2 follow-up on the echocardiogram #3 follow-up with the patient
[2020-10-24 10:04] LABS: Calcium 9.7 mg/dL (8.4-10.2); Potassium 4.8 mmol/L (3.5-5.1)
--- NOTE | 2020-10-24 11:36 | P.PN ---
Subjective Progress Note Date: 10/24/20 Principal diagnosis: 50-year-old male seen in consultation because of acute kidney injury, likely secondary to use of nonsteroidals, He is also known with history of left nephrectomy in 2003 for renal cell carcinoma, He was admitted with chest pain which is resolved and currently asymptomatic. No chest pain shortness of breath nausea vomiting diarrhea abdominal pain good appetite Blood pressures are well controlled in the 110-133/72 range if creatinine is improved to 1.32 from a peak of 2.45 on admission. His baseline creatinine is 1.0 on 10/13/2020 Is also known with atrial fibrillation COPD diabetes mellitus and hypertension. His urine protein to creatinine ratio is 1.0 g/g Objective - Vital Signs Vital signs: Vital Signs Temp 97.8 F 10/24/20 04:00 Pulse 79 10/24/20 04:00 Resp 16 10/24/20 04:00 BP 133/72 10/24/20 04:00 Pulse Ox 97 10/24/20 04:00 Intake & Output 10/23/20 10/24/20 10/24/20 18:59 06:59 18:59 Intake Total 480 240 Balance 480 240 Weight 107.1 kg Intake: Oral 480 240 Other: Voiding Method Toilet Toilet # Voids 1 Examination is awake alert oriented comfortable HEENT exam no JVP neck is supple no facial asymmetry Once clear to auscultation percussion good air entry bilaterally Heart sounds are unremarkable for any murmur rub gallop Abdomen soft nontender no organomegaly ascites masses Extremity exam was no edema Neurologically awake alert oriented - Labs CBC & Chem 7: 10/21/20 10:48 10/24/20 09:29 Labs: Abnormal Lab Results - Last 24 Hours (Table) 10/22/20 10/23/20 10/23/20 Range/Units 09:03 16:30 20:14 Sodium (137-145) mmol/L BUN (9-20) mg/dL Creatinine (0.66-1.25) mg/dL Glucose (74-99) mg/dL POC Glucose (mg/dL) 100 H 111 H (75-99) mg/dL Triglycerides 232.0 H (0.0-149.0) mg/dL VLDL Cholesterol, Calc 46.40 H (5.00-40.00) mg/dL HDL Cholesterol 39.0 L (40.0-60.0) mg/dL 10/24/20 Range/Units 09:29 Sodium 133 L (137-145) mmol/L BUN 29 H (9-20) mg/dL Creatinine 1.32 H (0.66-1.25) mg/dL Glucose 124 H (74-99) mg/dL POC Glucose (mg/dL) (75-99) mg/dL Triglycerides (0.0-149.0) mg/dL VLDL Cholesterol, Calc (5.00-40.00) mg/dL HDL Cholesterol (40.0-60.0) mg/dL Assessment and Plan Assessment: Impression 1. Acute kidney injury with creatinine of 2.45 improved to 1.57. Etiology is nonsteroidals most likely. 2. On admission calcium slightly high at 10.3 but is corrected 9.7. We will just watch this. 3. Diabetic nephropathy with proteinuria of 1 g, baseline creatinine is 1 4. Admitted with chest pain resolved troponins were 0.15 and 0.18 5. History of diabetes for 2 years 6. History of hypertension for 2 years Recommendation 1. Will add lisinopril 5 mg a day because of the proteinuria and diabetic nephropathy 2. Try to avoid nephrotoxic medications such as nonsteroidals as well as the pantoprazole unless it is absolutely necessary because of the PPIs being related to chronic kidney disease and possible acute interstitial nephritis. 3. If pressure goes down maybe we can reduce the amlodipine. 4. Needs to be followed up in the office. Thank you for this consultation and we will continue to follow as needed
[2020-10-24 11:45] LABS: Glucose,Whole Blood 108 mg/dL (75-99)
--- NOTE | 2020-10-24 15:28 | P.PN ---
Subjective Progress Note Date: 10/24/20 This is a 49-year-old gentleman followed by the [facility] who is currently incarcerated, brought into emergency room to chest pain as well as sinus tachycardia. Patient has had intermittent chest pain for several months now approximately 6 months, process multiple admissions for bowel obstruction, none of which is currently a problem. His pain is noted on the anterior chest wall region, without any medication, he takes Tylenol for this at the care home patient has no current NSAID use, and no hypotension however when he presents to the emergency room, creatinine is elevated 2.45, his last creatinine was 1.0 approximately mid September 2020. He also lost 35 pounds secondary to bowel obstruction. Magnesium was low at 1.3, glucose is 100. INR 1.0, hemoglobin of 12.6. His troponin was negative 3, EKG shows normal sinus rhythm without significant ST-T wave changes, patient is admitted with consult to cardiology, and nephrology. On the interim, we discontinued metformin, lisinopril, started amlodipine, and discontinued hydrochlorothiazide. Urinalysis showing moderate proteinuria, without any hematuria. PVR requested, was unremarkable, renal ultrasound requested consult with nephrology, patient is escorted with police officers routinely. 10/23, creatinine is much better, 1.57, patient has still the same low back pain as he had, tramadol can be offered, patient is not constipated this time, he has a small rash in the incision area, which is a scab, no drainage noted to here, patient can apply Bactroban to these 1, and monitor for progression. Patient is still off nephrotoxic agents, blood pressure is still stable, cardiology wants him to have a stress test as outpatient, most likely to be stable for discharge in the morning, can restart tammi inhibition as an outpatient once creatinine is better. Patient can be transported to nephrology office and cardiology office, from care home. No NSAIDs at this time 10/24: Patient is going to see tonight, as he is going to undergo a stress test tomorrow morning, patient complained of chest pain this morning, radiating from rom the sternum to the left shoulder, relieved by nitroglycerin was 1 dose. He is also started on lisinopril 5 mg by nephrology, secondary to diabetic proteinuria, or nephropathy. We'll going to stagger blood pressure medication that lisinopril would be given the morning, and amlodipine to be given at nightt denisse.. Review of Systems Constitutional: Reports as per HPI, Denies anorexia, Denies chills, Denies chronic headaches, Denies chronic pain, Denies daytime sleepiness, Denies fatigue, Denies fever, Denies lethargy, Denies malaise, Denies night sweats, Denies poor appetite, Denies sweats, Denies weakness, Denies weight gain, Denies weight loss Ears, nose, mouth and throat: Reports as per HPI Cardiovascular: Reports as per HPI, Denies chest pain, Denies claudication, Denies decreased exercise tolerance, Denies dyspnea on exertion, Denies edema, Denies high blood pressure, Denies irregular heart beat, Denies leg edema, Denies lightheadedness, Denies orthopnea, Denies palpitations, Denies paroxysmal nocturnal dyspnea, Denies phlebitis, Denies rapid heart beat, Denies shortness of breath, Denies syncope Respiratory: Reports as per HPI Gastrointestinal: Reports as per HPI, Denies abdominal pain, Denies belching, Denies bloating, Denies BRBPR, Denies change in bowel habits, Denies coffee ground emesis, Denies constipation, Denies diarrhea, Denies dyspepsia, Denies early satiety, Denies excessive gas, Denies heartburn, Denies hematemesis, Denies hematochezia, Denies indigestion, Denies jaundice, Denies lactose intolerance, Denies loss of appetite, Denies melena, Denies nausea, Denies vomiting Objective - Vital Signs Vital signs: Vital Signs Temp 98.0 F 10/24/20 08:00 Pulse 87 10/24/20 13:07 Resp 20 10/24/20 13:07 BP 116/65 10/24/20 13:07 Pulse Ox 96 10/24/20 13:07 Intake & Output 10/23/20 10/24/20 10/24/20 18:59 06:59 18:59 Intake Total 480 720 Balance 480 720 Weight 107.1 kg Intake: Oral 480 720 Other: Voiding Method Toilet Toilet # Voids 1 2 - Constitutional General appearance: Present: cooperative, no acute distress, obese - EENT Eyes: Present: EOMI, PERRLA, dentition normal - Neck Neck: Present: normal ROM - Respiratory Respiratory: bilateral: CTA, negative: diminished, dullness - Cardiovascular Rhythm: regular Heart sounds: normal: S1, S2 - Gastrointestinal General gastrointestinal: Present: normal bowel sounds, soft - Neurologic Neurologic: Present: CNII-XII intact - Musculoskeletal Musculoskeletal: Present: gait normal, strength equal bilaterally - Psychiatric Psychiatric: Present: A&O x's 3, appropriate affect, intact judgment & insight - Labs CBC & Chem 7: 10/21/20 10:48 10/24/20 09:29 Labs: Abnormal Lab Results - Last 24 Hours (Table) 10/23/20 10/23/20 10/24/20 Range/Units 16:30 20:14 09:29 Sodium 133 L (137-145) mmol/L BUN 29 H (9-20) mg/dL Creatinine 1.32 H (0.66-1.25) mg/dL Glucose 124 H (74-99) mg/dL POC Glucose (mg/dL) 100 H 111 H (75-99) mg/dL 10/24/20 Range/Units 11:42 Sodium (137-145) mmol/L BUN (9-20) mg/dL Creatinine (0.66-1.25) mg/dL Glucose (74-99) mg/dL POC Glucose (mg/dL) 108 H (75-99) mg/dL Assessment and Plan Plan: 1. Atypical chest pain, ruled out [place], troponins 3 are negative, patient's continue Lopressor, patient is seen by cardiology, he is to have an echo echocardiogram and TSH checked patient's to undergo stress test on 10/25 has nitroglycerin when necessary. Amlodipine to continue 2. Recent hospitalization for Partial small bowel obstruction s/p partial omentectomy, lysis of adhesions and repair of incisional hernia 09/21. 3. Acute kidney failure, with history of renal cancer, prior left nephrectomy, hold off any Toradol, no NSAIDs at this time, discontinue metformin, as the creatinine is elevated. PVR has been checked normal, renal ultrasound requested. No IV contrast studies at this time, secondary to kidney failure. Nephrology consultation will avoid NSAIDs, creatinine is better at 1.57 today 10/23 3. History of renal cell cancer, stable. 4. Hypertension. Discontinue Continue hydrochlorothiazide 12.5 mg daily, lisinopril 10 mg at bedtime, , restart Lopressor 100 mg twice daily, start amlodipine 5 mg 5. Hyperlipidemia. fenofibrate 160 mg at bedtime. 6. Diabetes mellitus type 2. NovoLog scale,, discontinue metformin 1000 mg twice daily, discontinue NovoLog scale will be added before meals and at bedtime 7. Gastroesophageal reflux disease. Continue Protonix 40 mg daily oral. 8. Chronic back pain. 9. History of SVT. Continue Lopressor. 10. Right flank pain, start methocarbamol 4 times a day when necessary, lidocaine topical to the right flank. 10. DVT prophylaxis. continue Lovenox 11. Right abdominal incisional scab, without fistula, no drainage, keep the wound dry, Neosporin or Bactroban can be placed
[2020-10-24 16:33] LABS: Glucose,Whole Blood 110 mg/dL (75-99)
[2020-10-24] MEDS ORDERED: ASPIRIN 325 MG TAB PO STA (17:24)
[2020-10-24] MEDS: ACETAMINOPHEN TAB 325 MG TAB PO PRN (17:36)
[2020-10-24 19:47] LABS: Glucose,Whole Blood 99 mg/dL (75-99)
[2020-10-24] MEDS: FENOFIBRATE 160 MG TAB PO SCH (20:35)
[2020-10-25] MEDS: ACETAMINOPHEN TAB 325 MG TAB PO PRN (04:13)
[2020-10-25 05:50] LABS: Glucose,Whole Blood 114 mg/dL (75-99)
[2020-10-25] MEDS: PANTOPRAZOLE 40 MG TABLET PO SCH (06:39)
[2020-10-25] MEDS: NITROGLYCERIN OINT 1 INCH/GM PACKET TOPICAL SCH (06:39)
[2020-10-25] MEDS ORDERED: CAFFEINE CITRATE 60 MG/3 ML VIAL IV PRN (08:00)
[2020-10-25] MEDS ORDERED: REGADENOSON 0.4 MG/5 ML SYRINGE IV PRN (08:00)
[2020-10-25] MEDS ORDERED: AMINOPHYLLINE 500 MG/20 ML VIAL IV PRN (08:00)
[2020-10-25] MEDS: METOPROLOL TARTRATE 50 MG TAB PO SCH (08:54)
[2020-10-25] MEDS: ASPIRIN 325 MG TAB PO SCH (08:58)
[2020-10-25] MEDS: ACETAMINOPHEN TAB 500 MG TAB PO SCH (08:58)
[2020-10-25] MEDS: MAGNESIUM OXIDE 400 MG TAB PO SCH (08:59)
[2020-10-25] MEDS ORDERED: lisinopriL 5 MG TAB PO SCH (09:00)
[2020-10-25] MEDS ORDERED: ASPIRIN 81 MG PO SCH (09:00)
[2020-10-25] MEDS: MUPIROCIN 2% OINT 22 GM TUBE TOPICAL SCH (09:02)
[2020-10-25 11:10] LABS: Glucose,Whole Blood 103 mg/dL (75-99)
--- NOTE | 2020-10-25 11:55 | P.PN ---
Subjective This is a pleasant 50-year-old male seen and examined resting comfortably lying flat in bed in no acute distress. He has had no further s ymptoms of chest discomfort or shortness of breath. Blood pressure 119/89 heart rate 86 afebrile maintaining oxygen saturation on room air. Currently maintained on Lopressor 100 mg twice a day, lisinopril 5 mg daily, fenofibrate 160 mg at bedtime, aspirin 325 mg daily, Nitropaste and amlodipine 5 mg at bedtime. Telemetry tracings reviewed, he is maintaining sinus rhythm with one triplet noted last evening. GENERAL: Well-appearing, well-nourished and in no acute distress. NECK: Supple without JVD or thyromegaly. LUNGS: Breath sounds clear to auscultation bilaterally. Respiration equal and u nlabored. No wheezes, rales or rhonchi. HEART: Regular rate and rhythm without murmurs, rubs or gallops. S1 and S2 heard. EXTREMITIES: Normal range of motion, no edema. No clubbing or cyanosis. Ana María pheral pulses intact. ASSESSMENT Chest pain, atypical Acute renal failure Hypertension Dyslipidemia Diabetes mellitus Former nicotine dependence PLAN Echocardiogram has been obtained and will be reviewed. Proceed with stress test as previously ordered. If abnormal we will consider coronary angiography. If stress test is normal he may be discharged from a cardiac perspective. Nurse Practitioner note has been reviewed, I agree with a documented findings and plan of care. Patient was seen and examined. Objective - Vital Signs Vital signs: Vital Signs Temp 98.3 F 10/25/20 08:00 Pulse 90 10/25/20 08:00 Resp 16 10/25/20 08:00 BP 119/89 10/25/20 08:00 Pulse Ox 97 10/25/20 08:00 Intake & Output 10/24/20 10/25/20 10/25/20 18:59 06:59 18:59 Intake Total 900 500 Balance 900 500 Weight 107.1 kg Intake: Oral 900 500 Other: Voiding Method Toilet # Voids 2 2 # Bowel Movements 0 - Labs CBC & Chem 7: 10/21/20 10:48 10/24/20 09:29 Labs: Abnormal Lab Results - Last 24 Hours (Table) 10/24/20 10/24/20 10/25/20 Range/Units 11:42 16:31 05:49 POC Glucose (mg/dL) 108 H 110 H 114 H (75-99) mg/dL 10/25/20 Range/Units 11:08 POC Glucose (mg/dL) 103 H (75-99) mg/dL
--- NOTE | 2020-10-25 12:08 | ECHOF ---
Referral Reason:CP MEASUREMENTS -------- HEIGHT: 162.6 cm WEIGHT: 106.6 kg BP: RVIDd: 3.5 cm (< 3.3) IVSd: 1.1 cm (0.6 - 1.1) LVIDd: 4.7 cm (3.9 - 5.3) LVPWd: 1.6 cm (0.6 - 1.1) IVSs: 1.7 cm LVIDs: 3.1 cm LVPWs: 1.5 cm LA Diam: 3.1 cm (2.7 - 3.8) Ao Diam: 3.6 cm (2.0 - 3.7) AV Cusp: 2.0 cm (1.5 - 2.6) LA Diam: 3.7 cm (2.7 - 3.8) MV EXCURSION: 24.208 mm (> 18.000) MV EF SLOPE: 162 mm/s (70 - 150) EPSS: 1.4 cm MV E Chan: 0.83 m/s MV DecT: 236 ms MV A Chan: 0.80 m/s MV E/A Ratio: 1.05 RAP: 5.00 mmHg RVSP: 12.14 mmHg FINDINGS -------- Sinus rhythm. This was a technically good study. LV size, wall thickness and systolic function are normal, with an EF greater than 55%. The left meghan tricular size is normal. The right ventricle is normal in size. The left atrial size is normal. The right atrial size is normal. The aortic valve is trileaflet, and appears structurally normal. No aortic stenosis or regurgitation. Mild mitral regurgitation is present. No regurgitation noted Right ventricular systolic pressure is normal at < 35 mmHg. There is no pulmonic regurgitation present. Echo free space represents a pericardial fat pad. CONCLUSIONS -------- 1. LV size, wall thickness and systolic function are normal, with an EF greater than 55%. 2. The left ventricular size is normal. 3. The right ventricle is normal in size. 4. The left atrial size is normal. 5. The right atrial size is normal. 6. The aortic valve is trileaflet, and appears structurally normal. No aortic stenosis or regurgitati on. 7. Mild mitral regurgitation is present. 8. No regurgitation noted 9. Echo free space represents a pericardial fat pad. SEGMENT ASSEMBLER: Lorie Nichols RDCS
[2020-10-25] MEDS ORDERED: REGADENOSON 0.4 MG/5 ML SYRINGE IV ONE (13:00)
--- NOTE | 2020-10-25 14:16 | PN ---
PROGRESS NOTE The patient the patient is seen for followup for acute kidney injury associated with use of nonsteroidal anti-inflammatory agents. Renal function has been improving creatinine down from 2.45 to 1.3 yesterday. Currently not on any IV fluids. PHYSICAL EXAMINATION: On examination today, blood pressure 119/89, heart rate 86 per minute. Patient is afebrile. Examination of the heart S1, S2. Examination of the lungs, bilateral breath sounds are heard. Abdomen is soft, nontender. Examination of lower extremities shows no evidence of edema. BI DEVELOPER exam grossly intact. LABS: From 10/24/2020 show sodium 133, potassium 4.8, BUN 29, creatinine 1.32. ASSESSMENT: 1. Acute kidney injury secondary to NSAIDs, currently improving. 2. Diabetic nephropathy with proteinuria of about 1 g. Baseline creatinine 1.0. 3. Chronic kidney disease, NKF stage 3. 4. Hypertension, currently controlled. PLAN: Continue with the TIMO inhibitors. Continue to avoid use of NSAIDs. MMODL / IJN: [id number] /
--- NOTE | 2020-10-25 14:48 | NM ---
EXAMINATION TYPE: NM stress lexiscan cardiolite DATE OF EXAM: 10/25/2020 COMPARISON: NONE HISTORY: Chest pain TECHNIQUE: After the intravenous administration of 10.20 mCi Tc 99m Sestamibi - Cardiolite resting S PECT images acquired 135 minutes post injection. At peak stress 69.9 mCi Tc 99m Sestamibi - Stress images obtained 35 minutes post injection The patient was stressed with 0.4mg Lexiscan. FINDINGS: No fixed defects are evident No reversible stress defects on Spect images Wall motion is normal. Some mild global hypokinesia is not excluded. Ejection fraction is calculated to be 47 %, which is low, normal greater than 50%.. IMPRESSION: 1. No scintigraphic evidence for reversible ischemia. 2. Low ejection fraction of 47%. Some minimal global hypokinesia may be present
[2020-10-25 14:50] VITALS: BP 121/58; RESP 18; TEMP 98.1
[2020-10-25 14:57] VITALS: PULSE 90
--- NOTE | 2020-10-25 15:19 | P.DS ---
Providers Date of admission: 10/22/20 08:33 Expected date of discharge: 10/25/20 Attending physician: Izabel Julio Consults: 10/21/20 12:46 Consult Physician Urgent Consulting Provider: [facility] Consult Reason/Comments: Chest pain Do you want consulting provider notified?: Yes 10/22/20 13:18 Consult Physician Routine Consulting Provider: Katherine Pritchett Consult Reason/Comments: kidney failure Do you want consulting provider notified?: Yes Primary care physician: [facility] Course: This is a 49-year-old gentleman [facility] by the [facility] who is currently incarcerated, brought into emergency room to chest pain as well as sinus tachycardia. Patient has had intermittent chest pain for several months now approximately 6 months, process multiple admissions for bowel obstruction, none of which is currently a problem. His pain is noted on the anterior chest wall region, without any medication, he takes Tylenol for this at the intermediate patient has no current NSAID use, and no hypotension however when he presents to the emergency room, creatinine is elevated 2.45, his last creatinine was 1.0 approximately mid September 2020. He also lost 35 pounds secondary to bowel obstruction. Magnesium was low at 1.3, glucose is 100. INR 1.0, hemoglobin of 12.6. His troponin was negative 3, EKG shows normal sinus rhythm without si gnificant ST-T wave changes, patient is admitted with consult to cardiology, and nephrology. On the interim, we discontinued metformin, lisinopril, started amlodipine, and discontinued hydrochlorothiazide. Urinalysis showing moderate proteinuria, without any hematuria. PVR requested, was unremarkable, renal ultrasound requested consult with nephrology, patient is escorted with police officers r outine. 10/23, creatinine is much better, 1.57, patient has still the same low back pain as he had, tramadol can be offered, patient is not constipated this time, he has a small rash in the incision area, which is a scab, no drainage noted to here, patient can apply Bactroban to these 1, and monitor for progression. Patient is still off nephrotoxic agents, blood pressure is still stable, cardiology wants him to have a stress test as outpatient, most likely to be stable for discharge in the morning, can restart tammi inhibition as an outpatient once creatinine is better. Patient can be transported to nephrology office and cardiology office, from intermediate. No NSAIDs at this time 10/24: Patient is going to see tonight, as he is going to undergo a stress test tomorrow morning, patient complained of chest pain this morning, radiating from rom the sternum to the left shoulder, relieved by nitroglycerin was 1 dose. He is also started on lisinopril 5 mg by nephrology, secondary to diabetic pro teinuria, or nephropathy. We'll going to stagger blood pressure medication that lisinopril would be given the morning, and amlodipine to be given at nighttime. 10/25: Has been seen and followed by cardiology. Echocardiogram reveals EF greater than 55%, mild mitral regurgitation. Patient underwent Lexiscan stress Cardiolite with no evidence of reversible ischemia and patient is been cleared for discharge by cardiology. Patient was also followed by nephrology for acute kidney injury secondary to steroids with plan to continue to avoid nonsteroidals. Patient will be discharged today in stable condition.. DISCHARGE DIAGNOSES 1. Atypical chest pain, ruled out [place] 2. Recent hospitalization for Partial small bowel obstruction s/p partial omentectomy, lysis of adhesions and repair of incisional hernia 09/21. 3. Acute kidney failure, with history of renal cancer, prior left nephrectomy 4. History of renal cell cancer, stable. 5. Hypertension. 6. Hyperlipidemia. 7. Diabetes mellitus type 2. 8. Gastroesophageal reflux disease. 9. Chronic back pain. 10. History of SVT. 11. Right flank pain 12. Right abdominal incisional scab, without fistula, no drainage 13. Chronic kidney disease stage III. DISCHARGE PLAN Home Impression and plan of care have been directed as dictated by the signing physician. Luly Coffey nurse practitioner acting as scribe for signing helen sorto. Plan - Discharge Summary Discharge Rx Participant: No New Discharge Prescriptions: New Aspirin 81 mg PO DAILY amLODIPine [Norvasc] 5 mg PO HS #30 tab Lidocaine 4% Cream [Lmx 4] 1 applic TOPICAL QID PRN PRN Reason: flank pain lisinopriL [Zestril] 5 mg PO DAILY #30 tab Continue Fenofibrate 160 mg PO HS Pantoprazole Sodium [Protonix] 40 mg PO DAILY Albuterol Sulfate [Proair Hfa] 2 puff INHALATION RT-QID PRN PRN Reason: Shortness Of Breath Magnesium Oxide [Mag-Ox] 400 mg PO DAILY metFORMIN HCL [Glucophage] 1,000 mg PO BID Ciclesonide [Alvesco] 1 puff INHALATION RT-BID Metoprolol Tartrate [Lopressor] 100 mg PO BID Acetaminophen Tab [Tylenol] 1,000 mg PO BID Glucerna Shake 237 ml PO TID Discontinued hydroCHLOROthiazide [Hydrodiuril] 12.5 mg PO DAILY #0 Ibuprofen [Motrin Ib] 600 mg PO BID PRN PRN Reason: Pain Levofloxacin [Levaquin] 500 mg PO HS lisinopriL [Zestril] 10 mg PO DAILY Discharge Medication List Fenofibrate 160 mg PO HS 09/18/17 [History] Pantoprazole Sodium [Protonix] 40 mg PO DAILY 10/12/19 [History] Albuterol Sulfate [Proair Hfa] 2 puff INHALATION RT-QID PRN 08/02/20 [History] metFORMIN HCL [Glucophage] 1,000 mg PO BID 08/02/20 [History] Magnesium Oxide [Mag-Ox] 400 mg PO DAILY 08/16/20 [History] Ciclesonide [Alvesco] 1 puff INHALATION RT-BID 09/12/20 [History] Metoprolol Tartrate [Lopressor] 100 mg PO BID 09/12/20 [History] Acetaminophen Tab [Tylenol] 1,000 mg PO BID 10/21/20 [History] Glucerna Shake 237 ml PO TID 10/21/20 [History] Aspirin 81 mg PO DAILY 10/25/20 [Rx] Lidocaine 4% Cream [Lmx 4] 1 applic TOPICAL QID PRN 10/25/20 [Rx] amLODIPine [Norvasc] 5 mg PO HS #30 tab 10/25/20 [Rx] lisinopriL [Zestril] 5 mg PO DAILY #30 tab 10/25/20 [Rx] Follow up Appointment(s)/Referral(s): [facility] [Primary Care Provider] - 1 Week Discharge Disposition: HOME SELF-CARE
[2020-10-25] MEDS ORDERED: amLODIPine 5 MG TAB PO SCH (21:00)
--- NOTE | 2020-10-26 08:37 | EST ---
EXERCISE STRESS AGE: 50 SEX: M HT: 5'10" WT: 236 lbs PROTOCOL: Lexiscan STAGE: NA DURATION OF EXERCISE: NA HEART RATE REST: 98 BLOOD PRESSURE REST: 130/96 MAXIMUM HEART RATE ACHIEVED: 126 MAXIMUM BLOOD PRESSURE: 140/84 85% MPHR: 144 100% MPHR: 169 METS: NA INDICATIONS: Chest pain. CLINICAL INFORMATION: Baseline EKG shows sinus rhythm, normal axis, normal intervals. The patient was given intravenous Lexiscan as per protocol. Did not have chest pain or diagnostic ST-segment depression. CONCLUSIONS: 1. Negative stress test by EKG criteria. 2. Cardiolite portion of the stress test will be reported separately. MMODL / IJN: [id number] /
== END 2020-10-25 17:10 | DRG 684 ==
LOC: EC 10:06 → EEVIPCON 10:06 → 3SCARD 12:57 → OBSVTOIN 10-22 08:33
PROVIDERS: ADMIT Family Medicine; ATTEND Family Medicine
DX: N17.9 Acute kidney failure, unspecified (principal); T38.0X5A Adverse effect of glucocorticoids and synthetic analogues, initial encounter; T39.395A Adverse effect of other nonsteroidal anti-inflammatory drugs [NSAID], initial encounter; N18.30 Chronic kidney disease, stage 3 unspecified; E11.22 Type 2 diabetes mellitus with diabetic chronic kidney disease; E78.5 Hyperlipidemia, unspecified; F31.9 Bipolar disorder, unspecified; E11.40 Type 2 diabetes mellitus with diabetic neuropathy, unspecified; F41.0 Panic disorder [episodic paroxysmal anxiety]; F42.9 Obsessive-compulsive disorder, unspecified; F60.3 Borderline personality disorder; G89.29 Other chronic pain; Z65.3 Problems related to other legal circumstances; M54.9 Dorsalgia, unspecified; I12.9 Hypertensive chronic kidney disease with stage 1 through stage 4 chronic kidney disease, or unspecified chronic kidney disease; I48.91 Unspecified atrial fibrillation; J44.9 Chronic obstructive pulmonary disease, unspecified; K21.9 Gastro-esophageal reflux disease without esophagitis; Z85.528 Personal history of other malignant neoplasm of kidney; Z98.890 Other specified postprocedural states; Z79.82 Long term (current) use of aspirin; Z79.84 Long term (current) use of oral hypoglycemic drugs; Z79.899 Other long term (current) drug therapy; Z80.1 Family history of malignant neoplasm of trachea, bronchus and lung; Z87.11 Personal history of peptic ulcer disease; Z87.891 Personal history of nicotine dependence; Z90.5 Acquired absence of kidney; Z90.49 Acquired absence of other specified parts of digestive tract; Z91.041 Radiographic dye allergy status
CPT/HCPCS: 36415; 71046; 76770; 78452; 80048; 80053; 80061; 81001; 82550; 82570; 83735; 84156; 84484; 85025; 85610; 85730; 93005; 93017; 93306; 96374; 99285